=== PATIENT | male | born 1960 | race African-American/Black ===

== ENCOUNTER 2017-01-31 08:32 | Emergency (ER) | payer MEDICAID ==
[~2017-01-31] VITALS: Ht 185.4 cm; Wt 71.0 kg
[2017-01-31 08:33] VITALS: BP 136/75; PULSE 82; RESP 17; TEMP 98; O2SAT 98
--- NOTE | 2017-01-31 09:02 | PD ---
HPI Chief Complaint: Complaint Time Seen by Provider: 09:02 Travel History International Travel<30 days: No Contact w/Intl Traveler<30days: No Traveled to known affect area: No History of Present Illness HPI 56-year-old male came to the emergency room with history of abdominal discomfort lower abdominal and back pain for past 7 days. Patient says he is also having trouble urinating although he eventually ends up emptying his bladder. His increased frequency and urgency. He has noticed some blood in his urine. The urination is prolonged and with some straining he needs to empty his bladder. He has never been diagnosed with any prostate hypertrophy. No history of fever or chills. No history of vomiting or diarrhea. Pain is there constantly but worse when he tries to urinate. Patient is sexually active. He has not noticed any penile discharge. He is been with the same partner for 6 months at least. He does not use protection during sex. Vital signs are stable. Patient is concerned that he may have ureteral calculi since he has history of kidney stones. He has lost 10 pounds in past 3 months. [facility] Past Medical History Narrative Medical List of his past medical, surgical, social and family history is reviewed from the nursing note. Asthma: No Autoimmune Disease: No Cardiovascular Problems: Yes COPD: No Diabetes: Yes (type 2) Patient Takes Glucophage: No (pt states does not remember the med name) GERD: No Hepatitis: No Hiatal Hernia: No Hypertension: Yes Medical other: Yes Sleep Apnea: No Ulcer: No Tetanus Vaccination: > 5 Years Influenza Vaccination: Yes Past Surgical History Surgical History: No Previous Surgery Genitourinary Surgery: No Other Surgery: No Social History Alcohol Use: Yes Tobacco Use: Yes Substance Use: Yes Allergies-Medications (Allergen,Severity, Reaction): Coded Allergies: No Known Allergies (Verified , 01/31/17) Comments No known drug allergies. Reported Meds & Prescriptions Reported Meds & Active Scripts Active Flomax (Tamsulosin HCl) 0.4 Mg Cap 0.4 Mg PO HS Ciprofloxacin (Ciprofloxacin HCl) 500 Mg Tab 500 Mg PO BID Narrative Medication Risk of his home medications reviewed from the nursing note. Review of Systems Except as stated in HPI: all other systems reviewed are Neg Physical Exam Narrative GENERAL: Awake, alert, moderate distress, thin built SKIN: Focused skin assessment warm/dry. HEAD: Atraumatic. Normocephalic. EYES: Pupils equal and round. No scleral icterus. No injection or drainage. ENT: No nasal bleeding or discharge. Mucous membranes pink and moist. NECK: Trachea midline. No JVD. CARDIOVASCULAR: Regular rate and rhythm. No murmur appreciated. RESPIRATORY: No accessory muscle use. Clear to auscultation. Breath sounds equal bilaterally. GASTROINTESTINAL: Abdomen soft, non-tender, nondistended. Hepatic and splenic margins not palpable. Rectal exam showed an enlarged prostate that was nontender. There was some faeces on the perianal area that was not cleaned MUSCULOSKELETAL: No obvious deformities. No clubbing. No cyanosis. No edema. NEUROLOGICAL: Awake and alert. No obvious cranial nerve deficits. Motor grossly within normal limits. Normal speech. PSYCHIATRIC: Appropriate mood and affect; insight and judgment normal. Data Data Last Documented VS Vital Signs Date Time Temp Pulse Resp B/P (MAP) Pulse Ox O2 Delivery O2 Flow Rate FiO2 01/31/17 11:32 97.8 76 17 154/86 (108) 98 01/31/17 10:00 Room Air Orders Orders Complete Blood Count With Diff (01/31/17 09:48) Comprehensive Metabolic Panel (01/31/17 09:48) Urinalysis - C+S If Indicated (01/31/17 09:48) Ct Abd/Pel W/O Iv Contrast (01/31/17 09:48) Iv Access Insert/Monitor (01/31/17 09:48) Ecg Monitoring (01/31/17 09:48) Oximetry (01/31/17 09:48) Sodium Chlor 0.9% 1000 Ml Inj (Ns 1000 M (01/31/17 09:48) Sodium Chloride 0.9% Flush (Ns Flush) (01/31/17 10:00) Ketorolac Inj (Toradol Inj) (01/31/17 10:00) Urine Culture (01/31/17 10:00) Ciprofloxacin (Cipro) (01/31/17 11:15) Ed Discharge Order (01/31/17 11:20) Labs Laboratory Tests Test 01/31/17 10:00 White Blood Count 6.0 TH/MM3 Red Blood Count 4.70 MIL/MM3 Hemoglobin 13.8 GM/DL Hematocrit 42.3 % Mean Corpuscular Volume 90.0 FL Mean Corpuscular Hemoglobin 29.5 PG Mean Corpuscular Hemoglobin Concent 32.7 % Red Cell Distribution Width 13.6 % Platelet Count 154 TH/MM3 Mean Platelet Volume 8.7 FL Neutrophils (%) (Auto) 56.0 % Lymphocytes (%) (Auto) 25.9 % Monocytes (%) (Auto) 13.3 % Eosinophils (%) (Auto) 3.9 % Basophils (%) (Auto) 0.9 % Neutrophils # (Auto) 3.3 TH/MM3 Lymphocytes # (Auto) 1.6 TH/MM3 Monocytes # (Auto) 0.8 TH/MM3 Eosinophils # (Auto) 0.2 TH/MM3 Basophils # (Auto) 0.1 TH/MM3 CBC Comment DIFF FINAL Differential Comment Urine Color YELLOW Urine Turbidity HAZY Urine pH 6.0 Urine Specific [place] 1.019 Urine Protein 100 mg/dL Urine Glucose (UA) NEG mg/dL Urine Ketones NEG mg/dL Urine Occult Blood MOD Urine Nitrite NEG Urine Bilirubin NEG Urine Urobilinogen 2.0 MG/DL Urine Leukocyte Esterase LARGE Urine RBC 17 /hpf Urine WBC /hpf Urine WBC Clumps MOD Urine Squamous Epithelial Cells 1 /hpf Urine Bacteria MOD /hpf Microscopic Urinalysis Comment CULTURE INDICATED Blood Urea Nitrogen 26 MG/DL Creatinine 1.30 MG/DL Random Glucose 97 MG/DL Total Protein 10.1 GM/DL Albumin 2.9 GM/DL Calcium Level 8.8 MG/DL Alkaline Phosphatase 72 U/L Aspartate Amino Transf (AST/SGOT) 50 U/L Alanine Aminotransferase (ALT/SGPT) 36 U/L Total Bilirubin 0.7 MG/DL Sodium Level 136 MEQ/L Potassium Level 3.9 MEQ/L Chloride Level 108 MEQ/L Carbon Dioxide Level 22.2 MEQ/L Anion Gap 6 MEQ/L Estimat Glomerular Filtration Rate 69 ML/MIN [facility] Medical Decision Making Medical Screen Exam Complete: Yes Emergency Medical Condition: Yes Medical Record Reviewed: Yes Differential Diagnosis UTI, renal colic, prostatitis, BPH Narrative Course 11:27 AM blood test results are within acceptable limits. Patient has significant UTI. I have ordered by mouth ciprofloxacin for him. My concern is prostatitis to some extent as well. CT scan shows significantly enlarged prostate. From ER standpoint I would treat him for his UTI and give him prescription for Flomax as well. I have recommended him to follow up with his primary care and urology. I included the name of the urologist on-call in his discharge instructions and hopefully he can follow up directly without requiring a primary care referral. Patient will be discharged home. Procedures EKG Prior to Arrival: No Diagnosis Primary Impression: UTI (urinary tract infection) Qualified Codes: N39.0 - Urinary tract infection, site not specified Additional Impressions: BPH (benign prostatic hyperplasia) Qualified Codes: N40.1 - Benign prostatic hyperplasia with lower urinary tract symptoms; R35.0 - Frequency of micturition Abdominal pain Qualified Codes: R10.9 - Unspecified abdominal pain Referrals: Hesham Rankin MD 2 days Additional Instructions: Please take the antibiotic prescription as per the direction. Take the other medication as per the direction. Return to the ER if the condition worsens or any other new concerns. Please follow-up with the urologist whose name and number been given to you for your enlarged prostate. Follow-up with your primary care. Med/Other Pt SpecificInfo: Prescription(s) given Scripts Tamsulosin (Flomax) 0.4 Mg Cap 0.4 MG PO HS for Manage Prostate Problems, #30 CAP 0 Refills Prov: Wesley Norris MD 01/31/17 Ciprofloxacin (Ciprofloxacin) 500 Mg Tab 500 MG PO BID for Infection, #20 TAB 0 Refills Prov: Wesley Norris MD 01/31/17 Disposition: 01 DISCHARGE HOME Condition: Stable Wesley Norris MD Jan 31, 2017 09:02
[2017-01-31] MEDS ORDERED: SODIUM CHLOR 0.9% 1000 ML INJ 1,000 ML IV SCH (09:48)
[2017-01-31 10:00] VITALS: RESP 17; O2SAT 99
[2017-01-31] MEDS ORDERED: SODIUM CHLORIDE 0.9% FLUSH 10 ML FLUSH IV FLUSH PRN (10:00)
[2017-01-31] MEDS ORDERED: KETOROLAC TROMETHAMINE 30 MG/ML (IVP) VIAL IVP ONE (10:00)
--- NOTE | 2017-01-31 10:32 | RADRPT ---
EXAM DATE/TIME: 01/31/2017 10:13 [facility] COMPARISON: No previous studies available for comparison. INDICATIONS : Left flank pain and inability to urinate ORAL CONTRAST: No oral contrast ingested. RADIATION DOSE: 13.28 CTDIvol (mGy) MEDICAL HISTORY : Renal calculi. Hypertension. Diabetes mellitus type 2. SURGICAL HISTORY : None. ENCOUNTER: Initial ACUITY: 1 day PAIN SCALE: 8/10 LOCATION: Left flank TECHNIQUE: Volumetric scanning of the abdomen and pelvis was performed. Using automated exposure control and ad justment of the mA and/or kV according to patient size, radiation dose was kept as low as reasonably achievable to obtain optimal diagnostic quality images. DICOM format image data is available electro nically for review and comparison. FINDINGS: LOWER LUNGS: The visualized lower lungs are clear. LIVER: Homogeneous density without lesion. There is no dilation of the biliary tree. No calcified gallston es. SPLEEN: Normal size without lesion. PANCREAS: Within normal limits. KIDNEYS: Normal in size and shape. There is no mass, stone, or hydronephrosis. ADRENAL GLANDS: Within normal limits. VASCULAR: There is no aortic aneurysm. BOWEL/MESENTERY: The stomach, small bowel, and colon demonstrate no acute abnormality. There is no free intraperitone al air or fluid. ABDOMINAL WALL: Within normal limits. RETROPERITONEUM: There is no lymphadenopathy. BLADDER: Biliary bladder is mildly distended. REPRODUCTIVE: Of a moderate enlargement of the prostate gland is identified. INGUINAL: There is no lymphadenopathy or hernia. MUSCULOSKELETAL: Within normal limits for patient age. CONCLUSION: 1. Prostatomegaly with mild distention of the urinary bladder. 2. No evidence of obstructive uropathy in the upper collecting systems. 3. No evidence of nephrolithiasis or hydronephrosis. Moncho Huang MD on January 31, 2017 at 10:28 Board Certified Radiologist. This report was verified electronically.
[2017-01-31 10:49] LABS: AUTOMATED NEUTROPHIL # 3.3 TH/MM3 (1.8-7.7); BASOPHIL # 0.1 TH/MM3 (0-0.2); BASOPHIL % 0.9 % (0.0-2.0); EOSINOPHIL # 0.2 TH/MM3 (0-0.4); EOSINOPHIL % 3.9 % (0.0-4.0); HEMATOCRIT 42.3 % (39.0-51.0); HEMO FLAGS DIFF FINAL; LYMPH % 25.9 % (9.0-44.0); LYMPHOCYTE # 1.6 TH/MM3 (1.0-4.8); MEAN CORPUSCULAR HEMOGLOBIN 29.5 PG (27.0-34.0); MEAN CORPUSCULAR HGB CONC 32.7 % (32.0-36.0); MONO % 13.3 % (0.0-8.0); PLATELET COUNT 154 TH/MM3 (150-450); RED CELL DISTRIBUTION WIDTH 13.6 % (11.6-17.2)
[2017-01-31 10:58] LABS: BACTERIA, URINE MOD /hpf; BLOOD, URINE MOD (NEG); COMMENT (UR) CULTURE INDICATED; CULTURE IF INDICATED CULTURE INDICATED; GLUCOSE,URINE NEG (NEG); KETONE, URINE NEG (NEG); NITRITE,URINE NEG (NEG); SQUAMOUS EPITHELIAL CELL URINE 1 /hpf (0-5); URINE COLOR YELLOW (YELLW/STRAW)
[2017-01-31 11:01] VITALS: RESP 16
[2017-01-31 11:06] LABS: ANION GAP 6 MEQ/L (5-15); AST (GOT) 50 U/L (15-37); BICARBONATE 22.2 MEQ/L (21.0-32.0); BLOOD UREA NITROGEN 26 MG/DL (7-18); CHLORIDE 108 MEQ/L (98-107); GLOMERULAR FILTRATION RATE 69 ML/MIN (>89); POTASSIUM 3.9 MEQ/L (3.5-5.1); SODIUM (NA) 136 MEQ/L (136-145)
[2017-01-31 11:08] LABS: ALT (GPT) 36 U/L (12-78)
[2017-01-31 11:10] LABS: ALKALINE PHOSPHATASE 72 U/L (45-117); TOTAL BILIRUBIN ADULT 0.7 MG/DL (0.2-1.0)
[2017-01-31] MEDS ORDERED: CIPROFLOXACIN 500 MG TAB PO ONE (11:15)
[2017-01-31] MEDS ORDERED: TAMS5CAP PO (11:20)
[2017-01-31] MEDS ORDERED: CIPR500T2 PO (11:20)
[2017-01-31 11:32] VITALS: BP 154/86; TEMP 97.8
== END 2017-01-31 11:34 | disposition home or self-care (01) ==
LOC: NEPC 08:32
DX: N39.0 Urinary tract infection, site not specified (principal); N40.1 Benign prostatic hyperplasia with lower urinary tract symptoms; R35.0 Frequency of micturition; I10 Essential (primary) hypertension; E11.9 Type 2 diabetes mellitus without complications
CPT/HCPCS: 74176; 80053; 81001; 85025; 87077; 87086; 87186; 96361; 96374; 99285; J1885; J7030

== ENCOUNTER 2017-07-09 05:33 | Inpatient (IN) | payer MEDICAID ==
[2017-07-09] VITALS (20 sets, daily range): BP systolic 157–208; BP diastolic 76–113; PULSE 66–98; RESP 17–25; TEMP 97.9–98.4; O2SAT 96–98
[~2017-07-09 05:33] MED LIST: CIPR500T2 PO; TAMS5CAP PO
--- NOTE | 2017-07-09 07:41 | RADRPT ---
EXAM DATE/TIME: 07/09/2017 07:26 [facility] COMPARISON: No previous studies available for comparison. INDICATIONS : Chest pain. MEDICAL HISTORY : Hypertension. Diabetes mellitus type II. SURGICAL HISTORY : None. ENCOUNTER: Initial ACUITY: 2 days PAIN SCORE: 6/10 LOCATION: Bilateral chest FINDINGS: The heart is enlarged. Increased interstitial markings are noted bilaterally consistent with mild pul monary vascular congestion versus acute or chronic interstitial disease. No focal alveolar consolidat ion is noted. CONCLUSION: 1. Diffuse increased interstitial markings which are nonspecific and could represent acute pneumoniti s, mild pulmonary vascular congestion or chronic interstitial disease. Clinical correlation is recomm ended. 2. Cardiomegaly. Ankush Parrish MD on July 09, 2017 at 7:37 Board Certified Radiologist. This report was verified electronically.
[2017-07-09 08:16] LABS: AUTOMATED NEUTROPHIL # 2.7 TH/MM3 (1.8-7.7); BASOPHIL # 0.1 TH/MM3 (0-0.2); EOSINOPHIL # 0.4 TH/MM3 (0-0.4); EOSINOPHIL % 6.9 % (0.0-4.0); HEMATOCRIT 39.6 % (39.0-51.0); HEMOGLOBIN 13.2 GM/DL (13.0-17.0); LYMPH % 28.9 % (9.0-44.0); LYMPHOCYTE # 1.5 TH/MM3 (1.0-4.8); MEAN CELL VOLUME 88.4 FL (80.0-100.0); MEAN CORPUSCULAR HEMOGLOBIN 29.4 PG (27.0-34.0); MEAN CORPUSCULAR HGB CONC 33.2 % (32.0-36.0); MEAN PLATELET VOLUME 8.3 FL (7.0-11.0); MONO % 9.9 % (0.0-8.0); MONOCYTE # 0.5 TH/MM3 (0-0.9); NEUT % 53.3 % (16.0-70.0); PLATELET COUNT 130 TH/MM3 (150-450); RED BLOOD COUNT 4.48 MIL/MM3 (4.50-5.90); RED CELL DISTRIBUTION WIDTH 14.5 % (11.6-17.2); WHITE BLOOD COUNT 5.1 TH/MM3 (4.0-11.0)
[2017-07-09 08:22] LABS: INTERNATIONAL NORMALIZED RATIO 1.1 RATIO; PROTHROMBIN TIME - PATIENT 11.1 SEC (9.8-11.6)
--- NOTE | 2017-07-09 08:44 | EKG ---
Date Performed: 07/09/2017 Time Performed: 07:19:51 PTAGE: 56 years EKG: Sinus rhythm MINIMAL VOLTAGE CRITERIA FOR LVH, CONSIDER NORMAL VARIANT POSSIBLE SEPTAL MYOCARDIAL INFARCTION ABNO RMAL ECG NO PREVIOUS TRACING DOCTOR: Bryn Casas Interpretating Date/Time 07/09/2017 08:23:02
[2017-07-09 08:58] LABS: BLOOD UREA NITROGEN 27 MG/DL (7-18); CALCIUM 8.5 MG/DL (8.5-10.1); CHLORIDE 113 MEQ/L (98-107); CREATININE 1.25 MG/DL (0.60-1.30); GLOMERULAR FILTRATION RATE 72 ML/MIN (>89); GLUCOSE,RANDOM 96 MG/DL (74-106); SODIUM (NA) 142 MEQ/L (136-145)
[2017-07-09] MEDS ORDERED: [UNRECOGNIZED DRUG - REMARK] (09:14)
--- NOTE | 2017-07-09 09:22 | PD ---
HPI Chief Complaint: Respiratory Distress Time Seen by Provider: 09:17 Travel History International Travel<30 days: No Contact w/Intl Traveler<30days: No Traveled to known affect area: No History of Present Illness HPI 56-year-old male patient with history of hypertension, diabetes, smoking, presents to the ER today for 3 days history of increased dyspnea on exertion and shortness of breath, 7 out of 10 substernal chest discomfort for which she came to the ER. He denies any fevers, coughing, or other issues. He denies any previous history. Modifying Factors: Worse with exertion Associated Signs & Symptoms: Chest discomfort, shortness of breath Risk Factors: Diabetic, hypertension PFSH Past Medical History Asthma: No Autoimmune Disease: No Cardiovascular Problems: Yes COPD: No Diabetes: Yes (type 2) Patient Takes Glucophage: Yes GERD: No Hepatitis: No Hiatal Hernia: No Hypertension: Yes Sleep Apnea: No Ulcer: No Past Surgical History Genitourinary Surgery: No Other Surgery: No Social History Alcohol Use: Yes Tobacco Use: Yes Substance Use: Yes Allergies-Medications (Allergen,Severity, Reaction): Coded Allergies: No Known Allergies (Verified Adverse Reaction, Unknown, 07/09/17) Reported Meds & Prescriptions Reported Meds & Active Scripts Active Flomax (Tamsulosin HCl) 0.4 Mg Cap 0.4 Mg PO HS Reported [Unk Bp Pill] DAILY Review of Systems Except as stated in HPI: all other systems reviewed are Neg Physical Exam Narrative GENERAL: Well-developed middle-aged -Greek male patient currently in mild distress. Awake and oriented 3. SKIN: Focused skin assessment warm/dry. HEAD: Atraumatic. Normocephalic. EYES: Pupils equal and round. No scleral icterus. No injection or drainage. ENT: No nasal bleeding or discharge. Mucous membranes pink and moist. NECK: Trachea midline. No JVD. CARDIOVASCULAR: Regular rate and rhythm. No murmur appreciated. RESPIRATORY: No accessory muscle use. Decreased throughout. Breath sounds equal bilaterally. GASTROINTESTINAL: Abdomen soft, non-tender, nondistended. Hepatic and splenic margins not palpable. MUSCULOSKELETAL: No obvious deformities. No clubbing. No cyanosis. No edema. NEUROLOGICAL: Awake and alert. No obvious cranial nerve deficits. Motor grossly within normal limits. Normal speech. PSYCHIATRIC: Appropriate mood and affect; insight and judgment normal. Data Data Last Documented VS Vital Signs Date Time Temp Pulse Resp B/P (MAP) Pulse Ox O2 Delivery O2 Flow Rate FiO2 07/09/17 09:25 80 20 168/102 (124) 97 Room Air 176/112 (133) 07/09/17 05:43 98.2 Orders Orders Electrocardiogram (07/09/17 07:05) Complete Blood Count With Diff (07/09/17 07:05) Basic Metabolic Panel (Bmp) (07/09/17 07:05) Ckmb (Isoenzyme) Profile (07/09/17 07:05) Troponin I (07/09/17 07:05) Iv Access Insert/Monitor (07/09/17 07:05) Ecg Monitoring (07/09/17 07:05) Oxygen Administration (07/09/17 07:05) Oximetry (07/09/17 07:05) Chest, Pa & Lat (07/09/17 ) Act Partial Throm Time (Ptt) (07/09/17 07:05) Prothrombin Time / Inr (Pt) (07/09/17 07:05) CKMB (07/09/17 07:50) CKMB% (07/09/17 07:50) Aspirin (Aspirin) (07/09/17 09:30) Nitroglycerin 2% Oint (Nitroglycerin 2% (07/09/17 09:30) B-Type Natriuretic Peptide (07/09/17 09:18) D-Dimer (07/09/17 09:22) Admit Order (Ed Use Only) (07/09/17 09:33) Labs Laboratory Tests Test 07/09/17 07:50 White Blood Count 5.1 TH/MM3 Red Blood Count 4.48 MIL/MM3 Hemoglobin 13.2 GM/DL Hematocrit 39.6 % Mean Corpuscular Volume 88.4 FL Mean Corpuscular Hemoglobin 29.4 PG Mean Corpuscular Hemoglobin Concent 33.2 % Red Cell Distribution Width 14.5 % Platelet Count 130 TH/MM3 Mean Platelet Volume 8.3 FL Neutrophils (%) (Auto) 53.3 % Lymphocytes (%) (Auto) 28.9 % Monocytes (%) (Auto) 9.9 % Eosinophils (%) (Auto) 6.9 % Basophils (%) (Auto) 1.0 % Neutrophils # (Auto) 2.7 TH/MM3 Lymphocytes # (Auto) 1.5 TH/MM3 Monocytes # (Auto) 0.5 TH/MM3 Eosinophils # (Auto) 0.4 TH/MM3 Basophils # (Auto) 0.1 TH/MM3 CBC Comment DIFF FINAL Differential Comment Prothrombin Time 11.1 SEC Prothromb Time International Ratio 1.1 RATIO Activated Partial Thromboplast Time 28.2 SEC Blood Urea Nitrogen 27 MG/DL Creatinine 1.25 MG/DL Random Glucose 96 MG/DL Calcium Level 8.5 MG/DL Sodium Level 142 MEQ/L Potassium Level 3.9 MEQ/L Chloride Level 113 MEQ/L Carbon Dioxide Level 22.0 MEQ/L Anion Gap 7 MEQ/L Estimat Glomerular Filtration Rate 72 ML/MIN Total Creatine Kinase 236 U/L Creatine Kinase MB 2.7 NG/ML Troponin I 0.10 NG/ML [facility] Medical Decision Making Medical Screen Exam Complete: Yes Emergency Medical Condition: Yes Medical Record Reviewed: Yes Interpretation(s) EKG shows normal sinus rhythm at a rate of 87 bpm with LVH. I do not see any signs of acute ST elevations or depressions. Laboratory Tests Test 07/09/17 07:50 Red Blood Count 4.48 MIL/MM3 (4.50-5.90) Platelet Count 130 TH/MM3 (150-450) Monocytes (%) (Auto) 9.9 % (0.0-8.0) Eosinophils (%) (Auto) 6.9 % (0.0-4.0) Blood Urea Nitrogen 27 MG/DL (7-18) Chloride Level 113 MEQ/L (98-107) Estimat Glomerular Filtration Rate 72 ML/MIN (>89) Troponin I 0.10 NG/ML (0.02-0.05) Last 24 hours Impressions Chest X-Ray 07/09/17 0000 Signed Impressions: Service Date/Time: Sunday, July 09, 2017 07:26 - CONCLUSION: 1. Diffuse increased interstitial markings which are nonspecific and could represent acute pneumonitis, mild pulmonary vascular congestion or chronic interstitial disease. Clinical correlation is recommended. 2. Cardiomegaly. Ankush Parrish MD Differential Diagnosis COPD exacerbation versus pneumonia versus CHF Narrative Course EKG did not show any signs of acute ST elevations or depressions. His blood pressure is mildly elevated in the ER and there are signs of LVH on EKG. I do not see any signs of acute ST elevations or depressions. Chest x-ray is showing signs of possible bilateral pneumonitis versus mild pulmonary edema. Lab work shows significant elevation of troponin of 0.1. This is of uncertain etiology, heart strain versus non-STEMI. Aspirin and nitroglycerin was given in the ER. Planning to admit for further evaluation and treatment. Case is discussed with family practice resident service for admission. Diagnosis Primary Impression: Shortness of breath Additional Impression: Elevated troponin Admitting Information Admitting Physician Requests: Admit Abdirahman iKng MD Jul 09, 2017 09:22
[2017-07-09] MEDS ORDERED: ASPIRIN 325 MG TAB PO ONE (09:30)
[2017-07-09] MEDS ORDERED: NITROGLYCERIN 2% OINT 1 GM PACKET TOPICAL ONE (09:30)
--- NOTE | 2017-07-09 09:39 | HHI.HP ---
[facility] Primary Care Physician No Primary Care Physician Admission Diagnosis chest pain Diagnoses: International Travel<30 Days: No Contact w/Intl Traveler<30days: No Known Affected Area: No History of Present Illness 56-year-old male with a history of diabetes, hypertension presenting to the ED with progressive shortness of breath and chest discomfort. Patient states that over the last 5 days he has had progressively worsening shortness of breath, palpitations and chest discomfort. States it is worse at rest as opposed to being active. Describes CP in his substernal region - doesn't radiate. It starts as sharp then progresses to dull/achy. 5 out of 10 pain scale. Feels like heart is going to "jump out of his chest." Can last hours at a time. Seems to be worse when laying down. Has to sleep with his head elevated. Occasionally feels discomfort in his mid-abdomen as well. At baseline, he has SOB, chest discomfort walking 1 block. Now getting SOB when walking a much shorter distance. Symptoms had been fairly stable yesterday, but awoke this morning and couldn't get out of bed. States he couldn't breath, had CP now 7 on pain scale. Denies syncope Normally coughs up small amount of mucous - unchanged. Had chills but doesn't believe he had fever. Has had nausea - no vomiting. A little less po intake but still able to eat/drink. Has been really thirsty. Also noticed a 5 pound weight loss over last week. Currently doesn't have a doctor. Review of Systems Constitutional: COMPLAINS OF: Weight loss (lost 5 pounds over last several days ), Chills, Dizziness (light headed), Night Sweats, DENIES: Fever Eyes: DENIES: Blurred vision, Double Vision Ears, nose, mouth, throat: DENIES: Throat pain, Running Nose Respiratory: COMPLAINS OF: Wheezing, Shortness of breath, DENIES: Cough Cardiovascular: COMPLAINS OF: Chest pain, Palpitations, Dyspnea on Exertion, Orthopnea, DENIES: Syncope Gastrointestinal: COMPLAINS OF: Constipation, Nausea, DENIES: Abdominal pain, Black stools, Bloody stools, Diarrhea, Vomiting Genitourinary: COMPLAINS OF: Hematuria (once 2 to 3 weeks ago), DENIES: Dysuria Integumentary: DENIES: Rash Hematologic/lymphatic: DENIES: Lymphadenopathy Psychiatric: COMPLAINS OF: Confusion (chronic but feeling moreso here recently) Past Family Social History Past Medical History HTN - takes unknown oral medication DM - takes an unknown oral medication Gout Smoker Past Surgical History No surgeries Allergies: Coded Allergies: No Known Allergies (Verified Allergy, Unknown, 07/09/17) Family History DM, HTN in parents poor vision Social History Lives with mother, disabled brother Was in the [employer] On disability currently due to Gout, prior ankle injury 1/2 ppd for 20 years Former drinker - last drink was 1 year ago Marijuana Physical Exam Vital Signs Vital Signs Date Time Temp Pulse Resp B/P (MAP) Pulse Ox O2 Delivery O2 Flow Rate FiO2 07/09/17 09:25 80 20 168/102 (124) 97 Room Air 176/112 (133) 07/09/17 09:16 83 20 98 Room Air 07/09/17 05:43 98.2 86 18 164/88 (113) 97 Physical Exam GENERAL: Thin, AAM sitting upright in bed. Did get acutely SOB during the physical exam. Able to speak in complete sentences. SKIN: No rashes, ecchymoses or lesions. Cool and dry. HEAD: Atraumatic. Normocephalic. No temporal or scalp tenderness. EYES: Pupils equal round and reactive. Extraocular motions intact. No scleral icterus. No injection or drainage. ENT: Nose without bleeding, purulent drainage or septal hematoma. Airway patent. NECK: Trachea midline. No JVD or lymphadenopathy. Supple, nontender, no meningeal signs. CARDIOVASCULAR: Regular rate and rhythm. Harsh 4/6 systolic murmur appreciated throughout. PMI nondisplaced RESPIRATORY: Breath sounds equal bilaterally. Bibasilar crackles noted. No wheezes GASTROINTESTINAL: Abdomen soft, non-tender, nondistended. No hepato-splenomegaly , or palpable masses. No guarding. MUSCULOSKELETAL: Digital clubbing appreciated. No lower extremity edema noted. R calf was TTP, Homans sign + on that R leg. L leg with no tenderness. NEUROLOGICAL: Awake and alert. Cranial nerves II through XII intact. Motor and sensory grossly within normal limits. Five out of 5 muscle strength in all muscle groups. Normal speech. Laboratory Laboratory Tests Test 07/09/17 07:50 White Blood Count 5.1 Red Blood Count 4.48 Hemoglobin 13.2 Hematocrit 39.6 Mean Corpuscular Volume 88.4 Mean Corpuscular Hemoglobin 29.4 Mean Corpuscular Hemoglobin Concent 33.2 Red Cell Distribution Width 14.5 Platelet Count 130 Mean Platelet Volume 8.3 Neutrophils (%) (Auto) 53.3 Lymphocytes (%) (Auto) 28.9 Monocytes (%) (Auto) 9.9 Eosinophils (%) (Auto) 6.9 Basophils (%) (Auto) 1.0 Neutrophils # (Auto) 2.7 Lymphocytes # (Auto) 1.5 Monocytes # (Auto) 0.5 Eosinophils # (Auto) 0.4 Basophils # (Auto) 0.1 CBC Comment DIFF FINAL Differential Comment Prothrombin Time 11.1 Prothromb Time International Ratio 1.1 Activated Partial Thromboplast Time 28.2 Blood Urea Nitrogen 27 Creatinine 1.25 Random Glucose 96 Calcium Level 8.5 Sodium Level 142 Potassium Level 3.9 Chloride Level 113 Carbon Dioxide Level 22.0 Anion Gap 7 Estimat Glomerular Filtration Rate 72 Total Creatine Kinase 236 Creatine Kinase MB 2.7 Troponin I 0.10 Result Diagram: 07/09/17 0750 07/09/17 0750 Imaging Last 24 hours Impressions Chest X-Ray 07/09/17 0000 Signed Impressions: Service Date/Time: Sunday, July 09, 2017 07:26 - CONCLUSION: 1. Diffuse increased interstitial markings which are nonspecific and could represent acute pneumonitis, mild pulmonary vascular congestion or chronic interstitial disease. Clinical correlation is recommended. 2. Cardiomegaly. MD Wesley Sood VTE Risk Assessment Caprini VTE Risk Assessment: Mod/High Risk (score >= 2) Caprini Risk Assessment Model Point Value = 1 Point Value = 2 Point Value = 3 Point Value = 5 Age 41-60 Minor surgery BMI > 25 kg/m2 Swollen legs Varicose veins or History of unexplained or recurrent spontaneous Oral contraceptives or hormone replacement Sepsis (< 1 month) Serious lung disease, including pneumonia (< 1 month) Abnormal pulmonary function Acute myocardial infarction Congestive heart failure (< 1 month) History of inflammatory bowel disease Medical patient at bed rest Age 61-74 Arthroscopic surgery Major open surgery (> 45 min) Laparoscopic surgery (> 45 min) Malignancy Confined to bed (> 72 hours) Immobilizing plaster cast Central venous access Age >= 75 History of VTE Family history of VTE Factor V Leiden Prothrombin [id number] Lupus anticoagulant Anticardiolipin antibodies Elevated serum homocysteine Heparin-induced thrombocytopenia Other congenital or acquired thrombophilia Stroke (< 1 month) Elective arthroplasty Hip, pelvis, or leg fracture Acute spinal cord injury (< 1 month) Prophylaxis Regimen Total Risk Factor Score Risk Level Prophylaxis Regimen 0-1 Low Early ambulation 2 Moderate Order ONE of the following: *Sequential Compression Device (SCD) *Heparin 5000 units SQ BID 3-4 Higher Order ONE of the following medications: *Heparin 5000 units SQ TID *Enoxaparin/Lovenox 40 mg SQ daily (WT < 150 kg, CrCl > 30 mL/min) *Enoxaparin/Lovenox 30 mg SQ daily (WT < 150 kg, CrCl > 10-29 mL/min) *Enoxaparin/Lovenox 30 mg SQ BID (WT < 150 kg, CrCl > 30 mL/min) AND/OR *Sequential Compression Device (SCD) 5 or more Highest Order ONE of the following medications: *Heparin 5000 units SQ TID (Preferred with Epidurals) *Enoxaparin/Lovenox 40 mg SQ daily (WT < 150 kg, CrCl > 30 mL/min) *Enoxaparin/Lovenox 30 mg SQ daily (WT < 150 kg, CrCl > 10-29 mL/min) *Enoxaparin/Lovenox 30 mg SQ BID (WT < 150 kg, CrCl > 30 mL/min) AND *Sequential Compression Device (SCD) Assessment and Plan Assessment and Plan 56 yo M with PMH of DM, HTN presenting to ED with 5 day history of progressive SOB, palpitations and chest discomfort. Has SOB at baseline. Found to have elevated troponin of 0.1, EKG with no ST changes on admission. Elevated D - Dimer. Admitting for PE, ACS rule out. Code Status Full code Discussed Condition With Dr. Anita Rodriguez Problem List: (1) SOB (shortness of breath) ICD Codes: R06.02 - Shortness of breath Plan: 5 day history of worsening shortness of breath, palpitation and chest discomfort Has shortness of breath at baseline, acutely worsened on day of admission Chest x-ray on admission showed diffused increased interstitial markings Elevated d-dimer on admission of 1.95 CTA is negative for PE. Showed central lobar emphysema with chronic interstitial lung disease as well as a nonspecific 7 mm nodular infiltrate in R apex Bibasilar crackles on physical exam, orthopnea per history Echocardiogram to evaluate for CHF, workup murmur Starting Duonebs q6hr, albuterol q2hr PRN Concern for chronic lung process as patient has significant smoking history, has digital clubbing and weight loss (2) Chest pain ICD Codes: R07.9 - Chest pain, unspecified Plan: Palpitations, both sharp and dull chest pain that is non-radiating Present both at rest and after exertion EKG on admission showing LVH, no ST changes Troponin 0.1 on admission Concern for NSTEMI vs PE vs unstable angina Trend troponin, EKG, CKMB q4hr Hemodynamically stable on admission aside from elevated BP CTA negative for PE Received 1 dose ASA 325mg in ED Starting Heparin drip with bolus Starting Nitro drip for pain Starting Vasotec PRN for HTN UDS + for cocaine so discontinuing IV Labetalol - patient had not received a dose prior to discontinuing Patient asked about cocaine use specifically and he denied. (3) Hypertension ICD Codes: I10 - Essential (primary) hypertension Plan: Patient has a known diagnosis of hypertension Takes an oral medication that he cannot cause with that is Spoke with his pharmacy and they stated he was on Lisinopril 20mg daily but has not had this filled in 1 year. Blood pressures are elevated up to 176/112 on admission Will start Vasotec 1.25 mg IV push every 6 hours as needed for systolic blood pressure over 180 or diastolic blood pressure over 100 (4) Diabetes ICD Codes: E11.9 - Type 2 diabetes mellitus without complications Plan: Patient with a known history of diabetes Spoke with his pharmacy and they stated he has not but has not had this filled in 1 year. Random glucose of 96 on admission Contacting pharmacy to determine what medicines he takes Starting low-dose sliding scale (5) Gout ICD Codes: M10.9 - Gout, unspecified Plan: Known history of gout Will monitor symptoms (6) FEN Plan: F: holding IVF for now until pending workup dictates clinical course E: WNL, no sign of CHRISTINA, will replete as needed N: NPO for now until clinical course is determined Heparin drip Physician Certification 2 Midnight Certification Type: Admission for Inpatient Services Order for Inpatient Services The services are ordered in accordance with Medicare regulations or non- Medicare payer requirements, as applicable. In the case of services not specified as inpatient-only, they are appropriately provided as inpatient services in accordance with the 2-midnight benchmark. Estimated LOS (days): 2 days is the estimated time the patient will need to remain in the hospital, assuming treatment plan goals are met and no additional complications. Post-Hospital Plan: Not yet determined Rony Painter MD R1 Jul 09, 2017 09:39
[2017-07-09] MEDS ORDERED: SODIUM CHLORIDE 0.9% FLUSH 10 ML FLUSH IV FLUSH PRN (10:00)
[2017-07-09] MEDS ORDERED: NITROGLYCERIN 0.4 MG SL 25 TABS/BTL SL PRN (10:30)
[2017-07-09] MEDS ORDERED: MORPHINE SULFATE 4 MG/ML INJ IV PUSH PRN (10:30)
[2017-07-09] MEDS ORDERED: IOHEXOL 350 MG/ML 10 ML VIAL (for RAD DIAG) IVCONTRAST ONE (10:34)
--- NOTE | 2017-07-09 10:46 | RADRPT ---
EXAM DATE/TIME: 07/09/2017 10:31 [facility] COMPARISON: No previous studies available for comparison. INDICATIONS : Increasing dyspnea and chest discomfort IV CONTRAST: 75 cc Omnipaque 350 (iohexol) IV RADIATION DOSE: 8.09 CTDIvol (mGy) MEDICAL HISTORY : Hypertension. Diabetes mellitus type 2. SURGICAL HISTORY : None. ENCOUNTER: Initial ACUITY: 4 - 6 days PAIN SCALE: 7/10 LOCATION: Left chest TECHNIQUE: Volumetric scanning of the chest was performed using a pulmonary embolism protocol MIP images were re constructed. Using automated exposure control and adjustment of the mA and/or kV according to patien t size, radiation dose was kept as low as reasonably achievable to obtain optimal diagnostic quality images. DICOM format image data is available electronically for review and comparison. Follow-up recommendations for detected pulmonary nodules are based at a minimum on nodule size and pa tient risk factors according to Fleischner Society Guidelines. FINDINGS: PULMONARY ARTERIES: No filling defects are seen in the pulmonary arteries through the segmental level. LUNGS: There is no consolidation or pneumothorax . Single nonspecific nodular infiltrate in the right measur ing 7 mm. There is central lobar emphysema throughout both lung gilliam with chronic bilateral interst itial lung disease characteristic for COPD. PLEURAE: There is no pleural thickening or pleural effusion. MEDIASTINUM: There is good visualization of the great vessels of the middle mediastinum. No evidence of mediastin al or hilar adenopathy/mass. MUSCULOSKELETAL: Within normal limits for patient age. MISCELLANEOUS: The visualized upper abdominal organs demonstrate no acute abnormality. CONCLUSION: 1. No evidence of pulmonary embolism. 2. 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 3. Nonspecific 7 mm nodular infiltrate right apex. Recommend followup noncontrast CT thorax in 3 viji hs after appropriate medical therapy. Cecil Soriano MD on July 09, 2017 at 10:40 Board Certified Radiologist. This report was verified electronically.
[2017-07-09] MEDS ORDERED: GLUCAGON 1 MG/ML VIAL OTHER PRN (11:15)
[2017-07-09] MEDS ORDERED: hydrALAZINE HCL 20 MG/ML VIAL IV PUSH PRN (11:45)
[2017-07-09] MEDS ORDERED: HEPARIN SODIUM - SQ 10,000 UNITS/ML VIAL SQ SCH (12:00)
[2017-07-09] MEDS: INSULIN ASPART SUPPLEMENTAL SCALE SQ SCH ×3 (12:00→20:50)
[2017-07-09] MEDS ORDERED: LABETALOL HCL 100 MG/20 ML VIAL IV PUSH PRN (12:15)
[2017-07-09] MEDS: ENALAPRILAT 1.25 MG/ML VIAL IV PUSH PRN ×2 (12:17→18:55)
[2017-07-09] MEDS: ONDANSETRON HCL 4 MG/2 ML VIAL IV PUSH PRN (12:17)
[2017-07-09] MEDS ORDERED: HEPARIN SODIUM - IV 10,000 UNITS/10 ML VIAL IV PUSH ONE (12:30)
[2017-07-09 12:37] LABS: BACTERIA, URINE MOD /hpf; BILIRUBIN, URINE NEG (NEG); BLOOD, URINE MOD (NEG); GLUCOSE,URINE NEG (NEG); HYALINE CAST, URINE 1 /lpf (RARE); KETONE, URINE NEG (NEG); MUCUS URINE FEW /lpf (OCC); NITRITE,URINE NEG (NEG); PH, URINE 6.5 (5.0-8.5); URINE COLOR YELLOW (YELLW/STRAW); URINE LEUKOCYTE ESTERASE MOD (NEG); WHITE BLOOD CELL CLUMPS RARE
[2017-07-09 12:57] LABS: TROPONIN I 0.12 NG/ML (0.02-0.05)
--- NOTE | 2017-07-09 13:10 | MB ---
cc: Clarence Villegas MD DATE OF CONSULT: INDICATION: Shortness of breath. HISTORY OF PRESENT ILLNESS: This is a 56-year-old diabetic and hypertensive gentleman with poor followup and noncompliance. He presents to the emergency department with progressive shortness of breath in addition to intermittent chest pain. He states the chest pain is progressively worse with ambulation and walking, not exacerbated by deep inspiration. There is no tenderness to deep palpation. He presented to the emergency department and given nitroglycerin without much relief. His D-dimer was mildly elevated. He had a CTA that ruled out pulmonary embolism. He is quite short of breath just lying in bed or when he got up to try to urinate had moderate distress. Denies any significant weight gain or water retention. PAST MEDICAL HISTORY: Hypertension, diabetes, gout, smoking. SOCIAL HISTORY: Does report occasional drug use, although denies any mora intravenous drug use. Reports mainly using cannabis. He is also on disability. Smokes half a pack for 20 years. FAMILY HISTORY: Reports diabetes, hypertension. REVIEW OF SYSTEMS: A 12-point review of systems was performed, negative unless otherwise noted in the history of present illness. PHYSICAL EXAMINATION: VITAL SIGNS: Temperature is normal, pulse is 82, blood pressure 158/98 mmHg. GENERAL: Alert and oriented x 3, in mild distress. HEENT: Shows pupils are reactive to light and accommodation. Extraocular movements are intact. NECK: There is mild elevation of jugular veins. No lymphadenopathy, no carotid bruits. LUNGS: Clear to auscultation bilaterally. CARDIOVASCULAR: Regular rate and rhythm without murmurs, rubs or gallops. ABDOMEN: Nontender, nondistended with good bowel sounds. No hepatosplenomegaly. EXTREMITIES: Show no clubbing, cyanosis or edema. CARDIOVASCULAR: Tachycardic with ectopy. A 3/6 holosystolic murmur best heard at the right sternal border. LABORATORY DATA: WBC 5.1, hemoglobin is 13.2, platelet count 130. INR is 1.1. Sodium 142, potassium 3.9, bicarbonate 22, BUN 27, creatinine is 1.25, troponin 0.10. ELECTROCARDIOGRAM: Sinus rhythm, nonspecific ST-T wave changes. ASSESSMENT: 1. Shortness of breath. 2. Murmur. 3. Hypertension, diabetes, chest pain. PLAN: Troponin is intermediate range, but his symptoms do not necessarily sound ischemic. Somewhat atypical, worse with ambulation. There is no prominent wheezing, although he has a fairly prominent holosystolic murmur. It sounds more consistent with tricuspid regurgitation. Denies any intravenous drug use, does not report any history of being told he has a murmur in the past. He is on nitroglycerin drip. We will keep him on that since his blood pressure is also elevated. He has also been initiated on heparin drip and we will trend his troponin, but I would like to get a 2-D echocardiogram today to define his valvular abnormality. At this point, he is probably going to need a heart catheterization whether it is rule out ischemic etiology or preoperative assessment for valve surgery given his prominent murmur and his significant respiratory symptoms. His minimal troponin elevation could just be cardiomyopathy induced. We will add a very low dose of carvedilol to help with his heart rate. Should also have a tox screen. I will add hydralazine p.r.n. for systolic blood pressure elevated. Clarence Villegas MD ERICA/TL , 12:43 PM , 01:09 PM
[2017-07-09] MEDS: NITROGLYCERIN-D5W 50 MG/250 ML 250 ML IV PRN (13:34)
[2017-07-09] MEDS: HEPARIN-D5W 25,000 U/250 ML 250 ML IV PRN (13:44)
[2017-07-09] MEDS: CARVEDILOL 6.25 MG TAB PO SCH ×2 (14:27→19:54)
[2017-07-09] MEDS: RESP: ALBUTEROL 2.5 MG/IPRATROPIUM 0.5 MG NEB (SCH) INH ×2 (16:06→19:21)
[2017-07-09 17:39] LABS: TROPONIN I 0.19 NG/ML (0.02-0.05)
--- NOTE | 2017-07-09 17:41 | ECHRPT ---
Indication: ACS, Murmur CONCLUSIONS Normal left ventricular size. Mild concentric left ventricular hypertrophy. The left ventricular systolic function is low normal with an estimated ejection fraction in the rang e of 50- 55%. The left atrial size is mildly dilated. Severe mitral valve regurgitation. The mitral valve regurgitation jet is directed anteriorly. Moderate thickening of the mitral valve leaflets. Cannot rule out mobile echodensity on posterior m itral valve leaflet on the inflow side of the mitral valve apparatus. Posterior mitral valve leaflet prolapse. The estimated pulmonary arterial pressure is 54 mmHg. There is mild tricuspid valve regurgitation. Mild pulmonary valve regurgitation. BP: 171 / 113 HR: 90 Rhythm: Sinus MEASUREMENTS (Male / Female) Normal Values Technical Quality:Fair 2D ECHO LV Diastolic Diameter PLAX 5.7 cm 4.2 - 5.9 / 3.9 - 5.3 cm LV Systolic Diameter PLAX 4.0 cm IVS Diastolic Thickness 1.2 cm 0.6 - 1.0 / 0.6 - 0.9 cm LVPW Diastolic Thickness 1.2 cm 0.6 - 1.0 / 0.6 - 0.9 cm LV Relative Wall Thickness 0.4 RV Internal Dim ED PLAX 3.3 cm LVOT Diameter 2.2 cm LA Systolic Diameter LX 4.4 cm 3.0 - 4.0 / 2.7 - 3.8 cm M-MODE Aortic Root Diameter MM 3.2 cm LA Systolic Diameter MM 4.1 cm LA Ao Ratio MM 1.3 AV Cusp Separation MM 2.3 cm DOPPLER AV Peak Velocity 79.6 cm/s AV Peak Gradient 2.5 mmHg LVOT Peak Velocity 71.0 cm/s LVOT Peak Gradient 2.0 mmHg AV Area Cont Eq pk 3.4 cm MV Peak Velocity 195.0 cm/s MV Peak Gradient 15.2 mmHg MV Mean Velocity 101.0 cm/s MV Mean Gradient 5.0 mmHg MV Area PHT 4.1 cm MR Peak Velocity 591.0 cm/s MR Peak Gradient 139.7 mmHg Mitral E Point Velocity 173.0 cm/s Mitral A Point Velocity 74.0 cm/s Mitral E to A Ratio 2.3 LV E' Lateral Velocity 18.4 cm/s Mitral E to LV E' Lateral Ratio 9.4 LV E' Septal Velocity 7.5 cm/s Mitral E to LV E' Septal Ratio 23.0 TR Peak Velocity 369.0 cm/s TR Peak Gradient 54.5 mmHg Right Atrial Pressure 10.0 mmHg Pulmonary Artery Systolic Pressu 64.5 mmHg Right Ventricular Systolic Press 64.5 mmHg FINDINGS LEFT VENTRICLE Normal left ventricular size. Mild concentric left ventricular hypertrophy. The left ventricular systolic function is low normal with an estimated ejection fraction in the rang e of 50- 55%. RIGHT VENTRICLE Normal right ventricular size and systolic function. LEFT ATRIUM The left atrial size is mildly dilated. RIGHT ATRIUM The right atrial size is normal. ATRIAL SEPTUM Normal atrial septal thickness without atrial level shunting by limited color doppler interrogation. AORTA The aortic root and proximal ascending aorta are normal in size on limited imaging. MITRAL VALVE Severe mitral valve regurgitation. The mitral valve regurgitation jet is directed anteriorly. Moderate thickening of the mitral valve leaflets. Cannot rule out mobile echodensity on posterior m itral valve leaflet on the inflow side of the mitral valve apparatus. Posterior mitral valve leaflet prolapse. AORTIC VALVE Trileaflet aortic valve. No aortic valve stenosis or regurgitation. TRICUSPID VALVE The estimated pulmonary arterial pressure is 54 mmHg. There is mild tricuspid valve regurgitation. PULMONARY VALVE Mild pulmonary valve regurgitation. VESSELS The inferior vena cava is normal in size. PERICARDIUM No pericardial effusion. Clarence Villegas MD, FACC (Electronically Signed) Final Date:09 July 2017 17:40
[2017-07-09] MEDS ORDERED: HEPARIN SODIUM - IV 10,000 UNITS/10 ML VIAL IV PUSH PRN ×2 (17:45)
[2017-07-09] MEDS: hydrALAZINE HCL 50 MG TAB PO PRN (17:55)
[2017-07-09] MEDS: SODIUM CHLORIDE 0.9% FLUSH 10 ML FLUSH IV FLUSH SCH (19:54)
[2017-07-09] MEDS ORDERED: cloNIDine HCL 0.1 MG TAB PO PRN (20:00)
[2017-07-09 20:47] LABS: CHOLESTEROL 149 MG/DL (120-200); MAGNESIUM 1.9 MG/DL (1.5-2.5); TRIGLYCERIDES 66 MG/DL (42-150)
[2017-07-09 20:50] LABS: CHOLESTEROL/ HDL RATIO 3.17 RATIO; LDL CHOLESTEROL 89 MG/DL (0-99)
[2017-07-09 22:36] LABS: HEMOGLOBIN A1C 5.5 % (4.3-6.0)
[2017-07-09] MEDS: TAMSULOSIN HCL 0.4 MG CAP PO SCH (22:58)
[2017-07-10] VITALS (27 sets, daily range): BP systolic 134–156; BP diastolic 75–94; PULSE 55–86; RESP 16–21; TEMP 96.4–98; O2SAT 95–98
[2017-07-10] MEDS: ONDANSETRON HCL 4 MG/2 ML VIAL IV PUSH PRN (00:32)
[2017-07-10 02:16] LABS: AUTOMATED NEUTROPHIL # 2.4 TH/MM3 (1.8-7.7); BASOPHIL % 0.9 % (0.0-2.0); EOSINOPHIL # 0.1 TH/MM3 (0-0.4); EOSINOPHIL % 3.5 % (0.0-4.0); HEMATOCRIT 38.1 % (39.0-51.0); HEMOGLOBIN 12.5 GM/DL (13.0-17.0); LYMPH % 30.4 % (9.0-44.0); LYMPHOCYTE # 1.3 TH/MM3 (1.0-4.8); MEAN CELL VOLUME 87.7 FL (80.0-100.0); MEAN CORPUSCULAR HEMOGLOBIN 28.7 PG (27.0-34.0); MEAN CORPUSCULAR HGB CONC 32.8 % (32.0-36.0); MONOCYTE # 0.4 TH/MM3 (0-0.9); NEUT % 55.2 % (16.0-70.0); PLATELET COUNT 147 TH/MM3 (150-450); RED BLOOD COUNT 4.34 MIL/MM3 (4.50-5.90); RED CELL DISTRIBUTION WIDTH 14.8 % (11.6-17.2); WHITE BLOOD COUNT 4.3 TH/MM3 (4.0-11.0)
[2017-07-10 02:46] LABS: ALBUMIN 2.4 GM/DL (3.4-5.0); ALT (GPT) 20 U/L (12-78); AST (GOT) 39 U/L (15-37); BICARBONATE 25.7 MEQ/L (21.0-32.0); BLOOD UREA NITROGEN 27 MG/DL (7-18); CALCIUM 8.1 MG/DL (8.5-10.1); CHLORIDE 111 MEQ/L (98-107); CREATININE 1.26 MG/DL (0.60-1.30); GLOMERULAR FILTRATION RATE 72 ML/MIN (>89); GLUCOSE,RANDOM 87 MG/DL (74-106); SODIUM (NA) 144 MEQ/L (136-145)
[2017-07-10 02:49] LABS: ALKALINE PHOSPHATASE 58 U/L (45-117); TOTAL BILIRUBIN ADULT 0.8 MG/DL (0.2-1.0); TOTAL PROTEIN 8.9 GM/DL (6.4-8.2)
[2017-07-10] MEDS: RESP: ALBUTEROL 2.5 MG/IPRATROPIUM 0.5 MG NEB (SCH) INH ×4 (03:23→19:52)
[2017-07-10] MEDS ORDERED: LORazepam 2 MG/ML VIAL IV PUSH ONE (05:15)
--- NOTE | 2017-07-10 07:58 | HHI.FPPN ---
Subjective Remarks Patient was seen and examined this morning. He states he wants to leave AMA because he is hungry and frustrated but has since decided to stay. He denies chest pain and shortness of breath, and has been ambulating without difficulty. No other complaints. No urinary symptoms. (Anita Rodriguez MD) Objective Vitals Vital Signs Date Time Temp Pulse Resp B/P (MAP) Pulse Ox O2 Delivery O2 Flow Rate FiO2 07/10/17 06:05 64 07/10/17 05:24 64 07/10/17 04:10 67 07/10/17 03:39 98.0 74 21 151/76 (101) 98 07/10/17 03:39 60 07/10/17 02:04 65 07/10/17 01:23 86 07/10/17 00:00 70 07/09/17 23:10 98.3 76 20 157/76 (103) 96 07/09/17 23:00 78 07/09/17 22:00 66 07/09/17 21:00 82 07/09/17 20:00 66 07/09/17 19:24 98 Nasal Cannula 3.00 07/09/17 19:00 77 07/09/17 19:00 98.4 78 25 200/103 (135) 97 07/09/17 18:00 74 07/09/17 17:58 Nasal Cannula 07/09/17 17:57 97.9 75 17 161/105 (123) 97 07/09/17 17:00 78 20 158/105 (122) 98 Nasal Cannula 2.00 07/09/17 16:17 76 20 160/112 (128) 98 Aerosol Mask 07/09/17 15:21 86 20 164/104 (124) 97 Nasal Cannula 2.00 07/09/17 14:29 83 20 177/113 (134) 97 Nasal Cannula 2.00 169/108 (128) 07/09/17 13:45 82 20 171/113 (132) 96 Nasal Cannula 2.00 07/09/17 13:34 90 171/113 07/09/17 13:00 77 20 167/109 (128) 97 Nasal Cannula 2.00 07/09/17 12:26 82 20 158/98 (118) 97 Nasal Cannula 2.00 07/09/17 12:04 81 20 173/107 (129) 96 Nasal Cannula 2.00 07/09/17 11:34 98 20 208/111 (143) 97 Nasal Cannula 3.00 07/09/17 11:19 97 Nasal Cannula 3.00 07/09/17 09:25 80 20 168/102 (124) 97 Room Air 176/112 (133) 07/09/17 09:16 83 20 98 Room Air I/O 07/09/17 07/09/17 07/09/17 07/10/17 07/10/17 07/10/17 07:00 15:00 23:00 07:00 15:00 23:00 Intake Total 420 ml Output Total 600 ml Balance -180 ml Intake Oral 420 ml Output Urine Total 600 ml Bladder Scan Volume Amount 533 ml # Voids 1 # Bowel Movements 0 (Anita Rodriguez MD) Result Diagram: 07/10/17 0131 07/10/17 [address] Angiography 07/09/17 0952 Signed Impressions: Service Date/Time: Sunday, July 09, 2017 10:31 - CONCLUSION: 1. No evidence of pulmonary embolism. 2. 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 3. Nonspecific 7 mm nodular infiltrate right apex. Recommend followup noncontrast CT thorax in 3 months after appropriate medical therapy. Cecil Soriano MD Chest X-Ray 07/09/17 0000 Signed Impressions: Service Date/Time: Sunday, July 09, 2017 07:26 - CONCLUSION: 1. Diffuse increased interstitial markings which are nonspecific and could represent acute pneumonitis, mild pulmonary vascular congestion or chronic interstitial disease. Clinical correlation is recommended. 2. Cardiomegaly. Ankush Parrish MD Objective Remarks GEN: Well-developed, well-nourished patient. No acute distress. Walking about the room without difficulty SKIN: No rashes, ecchymoses or lesions. Warm and dry. CV: Regular rate and rhythm. Murmur again appreciated LUNGS: Clear to auscultation bilaterally. Normal respiratory effort. No wheezes , rales, rhonchi. GI: Soft, nondistended. Bowel sounds present. EXT: No edema. No calf tenderness. NEURO/PSYCH: Awake, alert. Appropriate insight and judgment. Normal speech Procedures Echocardiogram Report 07/09/2017: Normal left ventricular size. Mild concentric left ventricular hypertrophy. The left ventricular systolic function is low normal with an estimated ejection fraction in the range of 50- 55%. The left atrial size is mildly dilated. Severe mitral valve regurgitation. The mitral valve regurgitation jet is directed anteriorly. Moderate thickening of the mitral valve leaflets. Cannot rule out mobile echodensity on posterior mitral valve leaflet on the inflow side of the mitral valve apparatus. Posterior mitral valve leaflet prolapse. The estimated pulmonary arterial pressure is 54 mmHg. There is mild tricuspid valve regurgitation. Mild pulmonary valve regurgitation. Medications and IVs Inpatient Medications Albuterol Sulfate (Albuterol Neb) 2.5 mg Q2HR NEB PRN INH SHORTNESS OF BREATH; Start 07/09/17 at 11:45 Albuterol/ Ipratropium (Duoneb Neb) 1 ampule Q6HR NEB INH Last administered on 07/10/17at 03:23; Start 07/09/17 at 12:30 Aspirin (Aspirin) 325 mg ONCE ONCE PO Last administered on 07/09/17at 09:31; Start 07/09/17 at 09:30; Stop 07/09/17 at 09:31; Status DC Carvedilol (Coreg) 6.25 mg Q12HR PO Last administered on 07/09/17at 19:54; Start 07/09/17 at 12:45 Ceftriaxone Sodium 1000 mg/ Sodium Chloride 100 ml @ 200 mls/hr Q24H IV ; Start 07/10/17 at 07:15; Status UNV Clonidine (Catapres) 0.1 mg Q6H PRN PO SEE LABEL COMMENTS; Start 07/09/17 at 20 :00 Dextrose (D50w (Vial) Inj) 50 ml UNSCH PRN IV PUSH HYPOGLYCEMIA-SEE COMMENTS; Start 07/09/17 at 11:15 Enalaprilat (Vasotec Inj) 1.25 mg Q6H PRN IV PUSH SBP> OR = 180, DBP> OR = 100 Last administered on 07/09/17at 18:55; Start 07/09/17 at 11:15 Glucagon (Glucagon Inj) 1 mg UNSCH PRN OTHER HYPOGLYCEMIA-SEE COMMENTS; Start 07/09/17 at 11:15 Heparin Sodium (Porcine) (Heparin Inj) 2,500 units UNSCH PRN IV PUSH APTT 25 TO 39; Start 07/09/17 at 17:45 Heparin Sodium/ Dextrose 250 ml @ 8 mls/hr TITRATE PRN IV Coagulation Management Last administered on 07/09/17at 13:44; Start 07/09/17 at 13:00 Hydralazine HCl (Apresoline Inj) 10 mg Q6H PRN IV PUSH SEE LABEL COMMENTS; Start 07/09/17 at 11:45; Stop 07/09/17 at 12:04; Status DC Hydralazine HCl (Apresoline) 50 mg Q8HR PRN PO SBP>160, DBP>90 Last administered on 07/09/17at 17:55; Start 07/09/17 at 12:45 Insulin Aspart (NovoLOG SUPPLEMENTAL SCALE) 1 ACHS SLIDING SCALE SQ Last administered on 07/09/17at 17:17; Start 07/09/17 at 12:00 Labetalol HCl (Trandate Inj) 10 mg Q6H PRN IV PUSH SEE LABEL COMMENTS; Start at 12:15; Stop 07/09/17 at 12:54; Status DC Lorazepam (Ativan Inj) 1 mg ONCE ONCE IV PUSH ; Start 07/10/17 at 05:15; Stop 07/10/17 at 05:16; Status DC Morphine Sulfate (Morphine Inj) 2 mg Q30M PRN IV PUSH CHEST PAIN; Start at 10:30 Nitroglycerin (Nitroglycerin 2% Oint) 1 inch ONCE ONCE TOPICAL Last administered on 07/09/17at 09:32; Start 07/09/17 at 09:30; Stop 07/09/17 at 09:31 ; Status DC Nitroglycerin (Nitrostat Sl) 0.4 mg Q5M PRN SL CHEST PAIN; Start 07/09/17 at 10 :30 Nitroglycerin/ Dextrose 250 ml @ 1.5 mls/hr TITRATE PRN IV Keep SBP > 90 mmHg Last administered on 07/09/17at 13:34; Start 07/09/17 at 13:00 Ondansetron HCl (Zofran Inj) 4 mg Q6H PRN IV PUSH NAUSEA OR VOMITING Last administered on 07/10/17at 00:32; Start 07/09/17 at 10:30 Sodium Chloride (NS Flush) 2 ml BID IV FLUSH Last administered on 07/09/17at 19: 54; Start 07/09/17 at 21:00 Tamsulosin HCl (Flomax) 0.4 mg HS PO Last administered on 07/09/17at 22:58; Start 07/09/17 at 22:00 (Anita Rodriguez MD) Urinary Catheter: No (Anita Rodriguez MD) Vascular Central Line Catheter: No (Anita Rodriguez MD) A/P Assessment and Plan 56 yo M with PMH of DM, HTN presenting to ED with 5 day history of progressive SOB, palpitations and chest discomfort. Has SOB at baseline. Found to have elevated troponin of 0.1, EKG with no ST changes on admission. Elevated D - Dimer. Admitted for PE workup, ACS workup. PE workup negative. Echo showing severe MR. SHAYAN pending. Discharge Planning Anticipate total inpatient stay of 2-4 days for further workup of symptoms and murmur. Unclear disposition, likely to home. SDW Dr. Painter, Dr. Israel (Anita Rodriguez MD) Attending Attestation Table rounds about patients admission discussed in detail with Dr Bernard, Dr Rodriguez, Dr Painter and Dr Woods this morning EMR reviewed Patient seen and examined with team Agree with the contents of above note See Orders Patient warned of complications of smoking (Ruperto Israel MD) Problem List: (1) Severe mitral regurgitation by prior echocardiogram ICD Codes: I34.0 - Nonrheumatic mitral (valve) insufficiency Status: Acute Plan: Patient noted to have echocardiogram 07/09 showing severe MR, low normal EF 50-55%, possible vegetation, elevated pulmonary pressures. SHAYAN pending for today, patient is NPO Continue telemetry, monitor for symptoms (2) SOB (shortness of breath) ICD Codes: R06.02 - Shortness of breath Status: Acute Plan: Improving. Will continue to monitor. Possibly related to severe MR, COPD , pulm HTN On admission: Patient reported 5 day history of worsening shortness of breath, palpitation and chest discomfort Has shortness of breath at baseline, acutely worsened on day of admission Chest x-ray on admission showed diffused increased interstitial markings Elevated d-dimer on admission of 1.95 CTA is negative for PE. Showed central lobar emphysema with chronic interstitial lung disease as well as a nonspecific 7 mm nodular infiltrate in R apex Bibasilar crackles on physical exam, orthopnea per history Duonebs q6hr, albuterol q2hr PRN Likely needs COPD w/u as outpt to include PFTs (3) UTI (urinary tract infection) ICD Codes: N39.0 - Urinary tract infection, site not specified Status: Acute Plan: UA showing pyuria, mod LE, occult blood Will start Rocephin 1g IV daily on 07/10 Urine culture showing Group D enterococcus Added blood cultures (4) Chest pain ICD Codes: R07.9 - Chest pain, unspecified Status: Resolved Plan: Troponins 0.12, 0.19, 0.20 on trending. EKGs showing LVH, poor R wave progression, no ST changes Echocardiogram as above Heparin gtt to continue SHAYAN pending On admission: Patient presented with palpitations, both sharp and dull chest pain that is non- radiating Present both at rest and after exertion EKG on admission showing LVH, no ST changes Troponin 0.1 on admission Concern for NSTEMI vs PE vs unstable angina Trend troponin, EKG, CKMB q4hr Hemodynamically stable on admission aside from elevated BP CTA negative for PE Received 1 dose ASA 325mg in ED Started Heparin drip with bolus Started Nitro drip for pain, BP Started Vasotec PRN for HTN UDS + for cocaine so discontinuing IV Labetalol - patient had not received a dose prior to discontinuing Patient asked about cocaine use specifically and he denied, counseled extensively on 07/10 on need for cessation (5) Hypertension ICD Codes: I10 - Essential (primary) hypertension Status: Chronic Plan: Patient has a known diagnosis of hypertension Takes an oral medication that he cannot cause with that is Spoke with his pharmacy and they stated he was on Lisinopril 20mg daily but has not had this filled in 1 year. Blood pressures are elevated up to 176/112 on admission Will start Vasotec 1.25 mg IV push every 6 hours as needed for systolic blood pressure over 180 or diastolic blood pressure over 100 (6) Diabetes ICD Codes: E11.9 - Type 2 diabetes mellitus without complications Status: Chronic Plan: Patient with a known history of diabetes Spoke with his pharmacy and they stated he has not but has not had this filled in 1 year. Random glucose of 96 on admission Contacting pharmacy to determine what medicines he takes Continue low-dose sliding scale (7) Gout ICD Codes: M10.9 - Gout, unspecified Status: Chronic Plan: Known history of gout Will monitor symptoms (8) Pulmonary nodule ICD Codes: R91.1 - Solitary pulmonary nodule Status: Acute Plan: Concern for chronic lung process as patient has significant smoking history, has digital clubbing and weight loss Note 7mm nodule on CT scan, will discuss with patient to f/u in 2-3 months (9) Substance abuse ICD Codes: F19.10 - Other psychoactive substance abuse, uncomplicated Status: Chronic Plan: UDS + cocaine, tobacco abuse Counseled will be provided on cessation and substance resources (10) FEN Status: Acute Plan: F: holding IVF for now until pending workup dictates clinical course E: WNL, no sign of CHRISTINA, will replete as needed N: NPO for now until clinical course is determined Heparin drip (Anita Rodriguez MD) Problem Qualifiers (1) Hypertension: Qualified Codes: I10 - Essential (primary) hypertension (2) Diabetes: Qualified Codes: E11.9 - Type 2 diabetes mellitus without complications; 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
[2017-07-10] MEDS: INSULIN ASPART SUPPLEMENTAL SCALE SQ SCH ×4 (08:00→20:57)
--- NOTE | 2017-07-10 08:31 | PD.CARD.PN ---
Subjective Subjective Remarks Still with chest pain and shortness of breath. Discussed results of echocardiogram and patient currently agreeable for SHAYAN today. (Pipo Gomez) Objective Medications Current Medications Medications (Trade) Dose Ordered Sig/Jakob Route Start Time Stop Time Status Last Admin (NS Flush) 2 ml UNSCH PRN IV FLUSH 07/09/17 10:00 (NS Flush) 2 ml BID IV FLUSH 07/09/17 21:00 07/09/17 19:54 (Nitrostat Sl) 0.4 mg Q5M PRN SL 07/09/17 10:30 (Morphine Inj) 2 mg Q30M PRN IV PUSH 07/09/17 10:30 (Zofran Inj) 4 mg Q6H PRN IV PUSH 07/09/17 10:30 07/10/17 00:32 (D50w (Vial) Inj) 50 ml UNSCH PRN IV PUSH 07/09/17 11:15 (Glucagon Inj) 1 mg UNSCH PRN OTHER 07/09/17 11:15 (NovoLOG SUPPLEMENTAL SCALE) 1 ACHS SLIDING SCALE SQ 07/09/17 12:00 07/09/17 17:17 (Vasotec Inj) 1.25 mg Q6H PRN IV PUSH 07/09/17 11:15 07/09/17 18:55 Nitroglycerin/ Dextrose 250 ml @ 1.5 mls/hr TITRATE PRN IV 07/09/17 13:00 07/09/17 13:34 (Heparin Inj) 5,000 units UNSCH PRN IV PUSH 07/09/17 17:45 (Heparin Inj) 2,500 units UNSCH PRN IV PUSH 07/09/17 17:45 Heparin Sodium/ Dextrose 250 ml @ 8 mls/hr TITRATE PRN IV 07/09/17 13:00 07/09/17 13:44 (Duoneb Neb) 1 ampule Q6HR NEB INH 07/09/17 12:30 07/10/17 03:23 (Albuterol Neb) 2.5 mg Q2HR NEB PRN INH 07/09/17 11:45 (Coreg) 6.25 mg Q12HR PO 07/09/17 12:45 07/09/17 19:54 (Apresoline) 50 mg Q8HR PRN PO 07/09/17 12:45 07/09/17 17:55 (Catapres) 0.1 mg Q6H PRN PO 07/09/17 20:00 (Flomax) 0.4 mg HS PO 07/09/17 22:00 07/09/17 22:58 Ceftriaxone Sodium 1000 mg/ Sodium Chloride 100 ml @ 200 mls/hr Q24H IV 07/10/17 08:00 Vital Signs / I&O Vital Signs Date Time Temp Pulse Resp B/P (MAP) Pulse Ox O2 Delivery O2 Flow Rate FiO2 07/10/17 07:15 96.4 78 16 156/94 (114) 96 07/10/17 07:15 83 07/10/17 06:05 64 07/10/17 05:24 64 07/10/17 04:10 67 07/10/17 03:39 98.0 74 21 151/76 (101) 98 07/10/17 03:39 60 07/10/17 02:04 65 07/10/17 01:23 86 07/10/17 00:00 70 07/09/17 23:10 98.3 76 20 157/76 (103) 96 07/09/17 23:00 78 07/09/17 22:00 66 07/09/17 21:00 82 07/09/17 20:00 66 07/09/17 19:24 98 Nasal Cannula 3.00 07/09/17 19:00 77 07/09/17 19:00 98.4 78 25 200/103 (135) 97 07/09/17 18:00 74 07/09/17 17:58 Nasal Cannula 07/09/17 17:57 97.9 75 17 161/105 (123) 97 07/09/17 17:00 78 20 158/105 (122) 98 Nasal Cannula 2.00 07/09/17 16:17 76 20 160/112 (128) 98 Aerosol Mask 07/09/17 15:21 86 20 164/104 (124) 97 Nasal Cannula 2.00 07/09/17 14:29 83 20 177/113 (134) 97 Nasal Cannula 2.00 169/108 (128) 07/09/17 13:45 82 20 171/113 (132) 96 Nasal Cannula 2.00 07/09/17 13:34 90 171/113 07/09/17 13:00 77 20 167/109 (128) 97 Nasal Cannula 2.00 07/09/17 12:26 82 20 158/98 (118) 97 Nasal Cannula 2.00 07/09/17 12:04 81 20 173/107 (129) 96 Nasal Cannula 2.00 07/09/17 11:34 98 20 208/111 (143) 97 Nasal Cannula 3.00 07/09/17 11:19 97 Nasal Cannula 3.00 07/09/17 09:25 80 20 168/102 (124) 97 Room Air 176/112 (133) 07/09/17 09:16 83 20 98 Room Air I/O 07/09/17 07/09/17 07/09/17 07/10/17 07/10/17 07/10/17 07:00 15:00 23:00 07:00 15:00 23:00 Intake Total 420 ml Output Total 600 ml Balance -180 ml Intake Oral 420 ml Output Urine Total 600 ml Bladder Scan Volume Amount 533 ml # Voids 1 # Bowel Movements 0 Physical Exam GENERAL: Well-developed well-nourished. In no acute distress. NECK: No carotid bruits. No JVD. CARDIOVASCULAR: Regular rate and rhythm. Loud systolic murmur best appreciated at the apex. RESPIRATORY: No accessory muscle use. Clear to auscultation. Breath sounds equal bilaterally. MUSCULOSKELETAL: No clubbing or cyanosis. No edema. NEUROLOGICAL: Awake and alert. Normal speech. Laboratory Laboratory Tests Test 07/09/17 11:45 07/09/17 12:08 07/09/17 16:42 07/09/17 19:39 Total Creatine Kinase 159 U/L 191 U/L 186 U/L Creatine Kinase MB 1.9 NG/ML 3.0 NG/ML 2.9 NG/ML Troponin I 0.12 NG/ML 0.19 NG/ML 0.20 NG/ML B-Type Natriuretic Peptide 443 PG/ML Urine Color YELLOW Urine Turbidity CLEAR Urine pH 6.5 Urine Specific Amelia 1.044 Urine Protein 300 mg/dL Urine Glucose (UA) NEG mg/dL Urine Ketones NEG mg/dL Urine Occult Blood MOD Urine Nitrite NEG Urine Bilirubin NEG Urine Urobilinogen 4.0 MG/DL Urine Leukocyte Esterase MOD Urine RBC 15 /hpf Urine WBC 79 /hpf Urine WBC Clumps RARE Urine Bacteria MOD /hpf Urine Hyaline Casts 1 /lpf Urine Mucus FEW /lpf Microscopic Urinalysis Comment CULTURE INDICATED Urine Opiates Screen NEG Urine Barbiturates Screen NEG Urine Amphetamines Screen NEG Urine Benzodiazepines Screen NEG Urine Cocaine Screen POS Urine Cannabinoids Screen POS Activated Partial Thromboplast Time 43.0 SEC Hemoglobin A1c 5.5 % Magnesium Level 1.9 MG/DL Triglycerides Level 66 MG/DL Cholesterol Level 149 MG/DL LDL Cholesterol 89 MG/DL HDL Cholesterol 47.0 MG/DL Cholesterol/HDL Ratio 3.17 RATIO Test 07/10/17 01:31 White Blood Count 4.3 TH/MM3 Red Blood Count 4.34 MIL/MM3 Hemoglobin 12.5 GM/DL Hematocrit 38.1 % Mean Corpuscular Volume 87.7 FL Mean Corpuscular Hemoglobin 28.7 PG Mean Corpuscular Hemoglobin Concent 32.8 % Red Cell Distribution Width 14.8 % Platelet Count 147 TH/MM3 Mean Platelet Volume 9.0 FL Neutrophils (%) (Auto) 55.2 % Lymphocytes (%) (Auto) 30.4 % Monocytes (%) (Auto) 10.0 % Eosinophils (%) (Auto) 3.5 % Basophils (%) (Auto) 0.9 % Neutrophils # (Auto) 2.4 TH/MM3 Lymphocytes # (Auto) 1.3 TH/MM3 Monocytes # (Auto) 0.4 TH/MM3 Eosinophils # (Auto) 0.1 TH/MM3 Basophils # (Auto) 0.0 TH/MM3 CBC Comment DIFF FINAL Differential Comment Activated Partial Thromboplast Time 42.4 SEC Blood Urea Nitrogen 27 MG/DL Creatinine 1.26 MG/DL Random Glucose 87 MG/DL Total Protein 8.9 GM/DL Albumin 2.4 GM/DL Calcium Level 8.1 MG/DL Alkaline Phosphatase 58 U/L Aspartate Amino Transf (AST/SGOT) 39 U/L Alanine Aminotransferase (ALT/SGPT) 20 U/L Total Bilirubin 0.8 MG/DL Sodium Level 144 MEQ/L Potassium Level 3.6 MEQ/L Chloride Level 111 MEQ/L Carbon Dioxide Level 25.7 MEQ/L Anion Gap 7 MEQ/L Estimat Glomerular Filtration Rate 72 ML/MIN Imaging Last [address] Angiography 07/09/17 0952 Signed Impressions: Service Date/Time: Sunday, July 09, 2017 10:31 - CONCLUSION: 1. No evidence of pulmonary embolism. 2. 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 3. Nonspecific 7 mm nodular infiltrate right apex. Recommend followup noncontrast CT thorax in 3 months after appropriate medical therapy. Cecil Soriano MD (Pipo Gomez) Assessment and Plan Assessment and Plan 56-year-old male with a past medical history of hypertension and noncompliance who presented with progressive shortness of breath and intermittent chest pain. Patient was found to have a mild systolic murmur and echocardiogram was ordered. Echocardiogram shows severe mitral regurgitation with normal ejection fraction. Chest pain/shortness of breath: At this time recommend workup for severe MR with SHAYAN today. (Pipo Gomez) Assessment and Plan severe mitral valve regurgitation with myxomatous/partially flail posterior leaflet CT surgical consult today cardiac catheterization tomorrow NPO p KAITY (Clarence Villegas MD) Pipo Gomez Jul 10, 2017 08:31 Clarence Villegas MD Jul 10, 2017 14:55
[2017-07-10] MEDS: SODIUM CHLORIDE 0.9% FLUSH 10 ML FLUSH IV FLUSH SCH ×2 (09:00→20:53)
[2017-07-10] MEDS: CARVEDILOL 6.25 MG TAB PO SCH ×2 (09:33→20:52)
[2017-07-10] MEDS: cefTRIAXone INJ 1,000 MG in SODIUM CHLORIDE 0.9% INJ 100 ML IV SCH (09:48)
[2017-07-10] MEDS ORDERED: PROPOFOL 200 MG/20 ML AMP ONE (13:58)
[2017-07-10] MEDS ORDERED: PHENYLEPH/NS 1000 MCG/10 ML SYR ONE (14:06)
[2017-07-10] MEDS ORDERED: SUCCINYLCHOLINE CHLORIDE 100 MG/5 ML SYRINGE ONE (14:07)
[2017-07-10] MEDS ORDERED: ePHEDrine/NS 25 MG/5 ML SYRINGE ONE (14:07)
--- NOTE | 2017-07-10 20:39 | EKG ---
Date Performed: 07/09/2017 Time Performed: 18:57:34 PTAGE: 56 years EKG: Sinus rhythm with multifocal PVCs. Poor R wave progression - probable normal variant Septal T wave changes are no nspecific Abnormal ECG PREVIOUS TRACING : 07/09/2017 16.33 Since the previous tracing, no significant change noted DOCTOR: Riccardo Newell Interpretating Date/Time 07/10/2017 20:38:09
--- NOTE | 2017-07-10 20:44 | EKG ---
Date Performed: 07/09/2017 Time Performed: 16:33:44 PTAGE: 56 years EKG: Sinus rhythm WITH FREQUENT VENTRICULAR PREMATURE COMPLEXES IN A BIGEMINAL PATTERN SEPTAL MYOCARDIAL INFARCTION AB NORMAL ECG PREVIOUS TRACING : 07/09/2017 11.37 Since the previous tracing, no significant change noted DOCTOR: Riccardo Newell Interpretating Date/Time 07/10/2017 20:43:06
[2017-07-10] MEDS: TAMSULOSIN HCL 0.4 MG CAP PO SCH (20:52)
--- NOTE | 2017-07-10 21:00 | EKG ---
Date Performed: 07/09/2017 Time Performed: 11:37:08 PTAGE: 56 years EKG: Sinus rhythm WITH FREQUENT VENTRICULAR PREMATURE COMPLEXES VOLTAGE CRITERIA FOR LVH POSSIBLE SEPTAL MYOCARDIAL IN FARCTION ABNORMAL ECG PREVIOUS TRACING : 07/09/2017 07.19 Compared to previous tracing PVCS ARE NEW DOCTOR: Riccardo Newell Interpretating Date/Time 07/10/2017 20:58:47
[2017-07-10] MEDS: NITROGLYCERIN-D5W 50 MG/250 ML 250 ML IV PRN (22:55)
[2017-07-10] MEDS: HEPARIN-D5W 25,000 U/250 ML 250 ML IV PRN (23:59)
[2017-07-11] VITALS (29 sets, daily range): BP systolic 135–147; BP diastolic 76–92; PULSE 61–93; RESP 18–20; TEMP 97.7–98.2; O2SAT 94–98
[2017-07-11 02:31] LABS: AUTOMATED NEUTROPHIL # 2.5 TH/MM3 (1.8-7.7); BASOPHIL % 1.1 % (0.0-2.0); EOSINOPHIL # 0.3 TH/MM3 (0-0.4); EOSINOPHIL % 7.4 % (0.0-4.0); HEMOGLOBIN 11.3 GM/DL (13.0-17.0); LYMPH % 23.4 % (9.0-44.0); MEAN CELL VOLUME 86.3 FL (80.0-100.0); MEAN CORPUSCULAR HEMOGLOBIN 28.8 PG (27.0-34.0); MEAN CORPUSCULAR HGB CONC 33.3 % (32.0-36.0); MEAN PLATELET VOLUME 9.2 FL (7.0-11.0); MONO % 10.2 % (0.0-8.0); MONOCYTE # 0.4 TH/MM3 (0-0.9); NEUT % 57.9 % (16.0-70.0); PLATELET COUNT 125 TH/MM3 (150-450); RED BLOOD COUNT 3.94 MIL/MM3 (4.50-5.90); RED CELL DISTRIBUTION WIDTH 14.7 % (11.6-17.2); WHITE BLOOD COUNT 4.3 TH/MM3 (4.0-11.0)
[2017-07-11 03:04] LABS: BICARBONATE 25.1 MEQ/L (21.0-32.0); CALCIUM 7.8 MG/DL (8.5-10.1); CREATININE 1.25 MG/DL (0.60-1.30)
[2017-07-11] MEDS: RESP: ALBUTEROL 2.5 MG/IPRATROPIUM 0.5 MG NEB (SCH) INH ×4 (03:17→20:02)
--- NOTE | 2017-07-11 07:53 | PD.CARD.PN ---
Subjective Subjective Remarks Chest pain and shortness of breath unchanged. Patient agreeable for cardiac catheterization and CT surgery evaluation today. All questions answered. Objective Medications Current Medications Medications (Trade) Dose Ordered Sig/Jakob Route Start Time Stop Time Status Last Admin (NS Flush) 2 ml UNSCH PRN IV FLUSH 07/09/17 10:00 (NS Flush) 2 ml BID IV FLUSH 07/09/17 21:00 07/10/17 20:53 (Nitrostat Sl) 0.4 mg Q5M PRN SL 07/09/17 10:30 (Morphine Inj) 2 mg Q30M PRN IV PUSH 07/09/17 10:30 (Zofran Inj) 4 mg Q6H PRN IV PUSH 07/09/17 10:30 07/10/17 00:32 (D50w (Vial) Inj) 50 ml UNSCH PRN IV PUSH 07/09/17 11:15 (Glucagon Inj) 1 mg UNSCH PRN OTHER 07/09/17 11:15 (NovoLOG SUPPLEMENTAL SCALE) 1 ACHS SLIDING SCALE SQ 07/09/17 12:00 07/10/17 20:57 (Vasotec Inj) 1.25 mg Q6H PRN IV PUSH 07/09/17 11:15 07/09/17 18:55 Nitroglycerin/ Dextrose 250 ml @ 1.5 mls/hr TITRATE PRN IV 07/09/17 13:00 07/10/17 22:55 (Heparin Inj) 5,000 units UNSCH PRN IV PUSH 07/09/17 17:45 (Heparin Inj) 2,500 units UNSCH PRN IV PUSH 07/09/17 17:45 Heparin Sodium/ Dextrose 250 ml @ 8 mls/hr TITRATE PRN IV 07/09/17 13:00 07/10/17 23:59 (Duoneb Neb) 1 ampule Q6HR NEB INH 07/09/17 12:30 07/10/17 19:52 (Albuterol Neb) 2.5 mg Q2HR NEB PRN INH 07/09/17 11:45 (Coreg) 6.25 mg Q12HR PO 07/09/17 12:45 07/10/17 20:52 (Apresoline) 50 mg Q8HR PRN PO 07/09/17 12:45 07/09/17 17:55 (Catapres) 0.1 mg Q6H PRN PO 07/09/17 20:00 (Flomax) 0.4 mg HS PO 07/09/17 22:00 07/10/17 20:52 Ceftriaxone Sodium 1000 mg/ Sodium Chloride 100 ml @ 200 mls/hr Q24H IV 07/10/17 08:00 07/10/17 09:48 Vital Signs / I&O Vital Signs Date Time Temp Pulse Resp B/P (MAP) Pulse Ox O2 Delivery O2 Flow Rate FiO2 07/11/17 06:00 61 07/11/17 05:00 74 07/11/17 04:15 Nasal Cannula 2.00 07/11/17 04:00 77 07/11/17 03:00 78 07/11/17 02:00 65 07/11/17 01:00 82 07/11/17 00:00 72 07/10/17 23:17 97 Nasal Cannula 2.00 07/10/17 23:17 72 18 134/78 (96) 97 07/10/17 23:00 78 07/10/17 22:55 134/78 07/10/17 22:00 72 07/10/17 22:00 97 Nasal Cannula 2.00 07/10/17 21:00 74 07/10/17 20:00 78 07/10/17 19:53 97 Nasal Cannula 3.00 07/10/17 19:30 97.9 69 20 145/80 (101) 97 07/10/17 19:00 65 07/10/17 18:00 75 07/10/17 17:00 60 07/10/17 16:00 67 07/10/17 15:45 72 07/10/17 15:45 95 Nasal Cannula 2.00 07/10/17 15:40 97.5 69 17 136/75 (95) 95 07/10/17 13:00 55 07/10/17 12:00 72 07/10/17 11:00 83 07/10/17 11:00 72 16 141/87 (105) 98 07/10/17 10:00 74 07/10/17 09:32 153/87 (109) 07/10/17 09:00 96 Nasal Cannula 3.00 I/O 07/10/17 07/10/17 07/10/17 07/11/17 07/11/17 07/11/17 07:00 15:00 23:00 07:00 15:00 23:00 Intake Total 420 ml 100 ml 1008 ml 438.1 ml Output Total 600 ml 250 ml 350 ml Balance -180 ml 100 ml 758 ml 88.1 ml Intake Oral 420 ml 600 ml 240 ml IV Total 100 ml 408 ml 198.1 ml Output Urine Total 600 ml 250 ml 350 ml # Voids 3 # Bowel Movements 0 0 Physical Exam GENERAL: Well-developed well-nourished. In no acute distress. NECK: No carotid bruits. No JVD. CARDIOVASCULAR: Regular rate and rhythm. Loud systolic murmur best appreciated at the apex. RESPIRATORY: No accessory muscle use. Clear to auscultation. Breath sounds equal bilaterally. MUSCULOSKELETAL: No clubbing or cyanosis. No edema. NEUROLOGICAL: Awake and alert. Normal speech. Laboratory Laboratory Tests Test 07/10/17 08:59 07/10/17 19:45 07/11/17 02:08 Activated Partial Thromboplast Time 32.1 SEC 40.8 SEC 41.8 SEC White Blood Count 4.3 TH/MM3 Red Blood Count 3.94 MIL/MM3 Hemoglobin 11.3 GM/DL Hematocrit 34.0 % Mean Corpuscular Volume 86.3 FL Mean Corpuscular Hemoglobin 28.8 PG Mean Corpuscular Hemoglobin Concent 33.3 % Red Cell Distribution Width 14.7 % Platelet Count 125 TH/MM3 Mean Platelet Volume 9.2 FL Neutrophils (%) (Auto) 57.9 % Lymphocytes (%) (Auto) 23.4 % Monocytes (%) (Auto) 10.2 % Eosinophils (%) (Auto) 7.4 % Basophils (%) (Auto) 1.1 % Neutrophils # (Auto) 2.5 TH/MM3 Lymphocytes # (Auto) 1.0 TH/MM3 Monocytes # (Auto) 0.4 TH/MM3 Eosinophils # (Auto) 0.3 TH/MM3 Basophils # (Auto) 0.0 TH/MM3 CBC Comment DIFF FINAL Differential Comment Blood Urea Nitrogen 28 MG/DL Creatinine 1.25 MG/DL Random Glucose 99 MG/DL Calcium Level 7.8 MG/DL Sodium Level 143 MEQ/L Potassium Level 3.4 MEQ/L Chloride Level 112 MEQ/L Carbon Dioxide Level 25.1 MEQ/L Anion Gap 6 MEQ/L Estimat Glomerular Filtration Rate 72 ML/MIN Imaging Last Impressions CT Angiography 3/20/18 0952 Signed Impressions: Service Date/Time: Sunday, July 09, 2017 10:31 - CONCLUSION: 1. No evidence of pulmonary embolism. 2. 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 3. Nonspecific 7 mm nodular infiltrate right apex. Recommend followup noncontrast CT thorax in 3 months after appropriate medical therapy. Cecil Soriano MD Chest X-Ray 07/09/17 0000 Signed Impressions: Service Date/Time: Sunday, July 09, 2017 07:26 - CONCLUSION: 1. Diffuse increased interstitial markings which are nonspecific and could represent acute pneumonitis, mild pulmonary vascular congestion or chronic interstitial disease. Clinical correlation is recommended. 2. Cardiomegaly. Ankush Parrish MD Assessment and Plan Assessment and Plan 56-year-old male with a past medical history of hypertension and noncompliance who presented with progressive shortness of breath and intermittent chest pain. Patient was found to have a mild systolic murmur and echocardiogram was ordered. Echocardiogram shows severe mitral regurgitation with normal ejection fraction. Chest pain/shortness of breath: Performed SHAYAN 07/10 severe mitral valve regurgitation with myxomatous/partially flail posterior leaflet. CT surgery consulted. Plan for cardiac catheterization today. Pipo Gomez Jul 11, 2017 07:52
[2017-07-11] MEDS: INSULIN ASPART SUPPLEMENTAL SCALE SQ SCH ×4 (08:00→21:00)
[2017-07-11] MEDS: RESP: ALBUTEROL 2.5 MG/3 ML NEB (PRN) INH (08:08)
[2017-07-11] MEDS: CARVEDILOL 6.25 MG TAB PO SCH ×2 (08:27→20:47)
[2017-07-11] MEDS: cefTRIAXone INJ 1,000 MG in SODIUM CHLORIDE 0.9% INJ 100 ML IV SCH (08:28)
[2017-07-11] MEDS: SODIUM CHLORIDE 0.9% FLUSH 10 ML FLUSH IV FLUSH SCH ×2 (08:28→20:49)
--- NOTE | 2017-07-11 09:00 | HHI.FPPN ---
Subjective Remarks No acute events overnight. Patient continues to feel chest discomfort/SOB but states it is stable. Denies N/V, abdominal pain. He's hungry and is eager to have lunch after his procedure. Objective Vitals Vital Signs Date Time Temp Pulse Resp B/P (MAP) Pulse Ox O2 Delivery O2 Flow Rate FiO2 07/11/17 08:08 98 Nasal Cannula 3.00 07/11/17 06:00 61 07/11/17 05:00 74 07/11/17 04:15 Nasal Cannula 2.00 07/11/17 04:00 77 07/11/17 03:00 78 07/11/17 02:00 65 07/11/17 01:00 82 07/11/17 00:00 72 07/10/17 23:17 97 Nasal Cannula 2.00 07/10/17 23:17 72 18 134/78 (96) 97 07/10/17 23:00 78 07/10/17 22:55 134/78 07/10/17 22:00 72 07/10/17 22:00 97 Nasal Cannula 2.00 07/10/17 21:00 74 07/10/17 20:00 78 07/10/17 19:53 97 Nasal Cannula 3.00 07/10/17 19:30 97.9 69 20 145/80 (101) 97 07/10/17 19:00 65 07/10/17 18:00 75 07/10/17 17:00 60 07/10/17 16:00 67 07/10/17 15:45 72 07/10/17 15:45 95 Nasal Cannula 2.00 07/10/17 15:40 97.5 69 17 136/75 (95) 95 07/10/17 13:00 55 07/10/17 12:00 72 07/10/17 11:00 83 07/10/17 11:00 72 16 141/87 (105) 98 07/10/17 10:00 74 07/10/17 09:32 153/87 (109) 07/10/17 09:00 96 Nasal Cannula 3.00 I/O 07/10/17 07/10/17 07/10/17 07/11/17 07/11/17 07/11/17 07:00 15:00 23:00 07:00 15:00 23:00 Intake Total 420 ml 100 ml 1008 ml 438.1 ml Output Total 600 ml 250 ml 350 ml Balance -180 ml 100 ml 758 ml 88.1 ml Intake Oral 420 ml 600 ml 240 ml IV Total 100 ml 408 ml 198.1 ml Output Urine Total 600 ml 250 ml 350 ml # Voids 3 # Bowel Movements 0 0 Result Diagram: 07/11/1720707/11/17207 Objective Remarks GEN: Well-developed, well-nourished patient. No acute distress. Walking about the room without difficulty SKIN: No rashes, ecchymoses or lesions. Warm and dry. CV: Regular rate and rhythm. Murmur again appreciated LUNGS: Clear to auscultation bilaterally. Normal respiratory effort. No wheezes , rales, rhonchi. GI: Soft, nondistended. Bowel sounds present. EXT: No edema. No calf tenderness. NEURO/PSYCH: Awake, alert. Appropriate insight and judgment. Normal speech Procedures Echocardiogram Report 07/09/2017: Normal left ventricular size. Mild concentric left ventricular hypertrophy. The left ventricular systolic function is low normal with an estimated ejection fraction in the range of 50- 55%. The left atrial size is mildly dilated. Severe mitral valve regurgitation. The mitral valve regurgitation jet is directed anteriorly. Moderate thickening of the mitral valve leaflets. Cannot rule out mobile echodensity on posterior mitral valve leaflet on the inflow side of the mitral valve apparatus. Posterior mitral valve leaflet prolapse. The estimated pulmonary arterial pressure is 54 mmHg. There is mild tricuspid valve regurgitation. Mild pulmonary valve regurgitation. A/P Assessment and Plan 56 yo M with PMH of DM, HTN presenting to ED with 5 day history of progressive SOB, palpitations and chest discomfort. Has SOB at baseline. Found to have elevated troponin of 0.1, EKG with no ST changes on admission. Elevated D - Dimer. Admitted for PE workup, ACS workup. PE workup negative. Echo showing severe MR. SHAYAN showing severe mitral regurg and myxomatous/partially flail posterior leaflet on 07/10. CT surgery consulted. Heart cath planned for 07/11 per cardiology Discharge Planning Anticipate total inpatient stay of 2-4 days for further workup of symptoms and murmur. Unclear disposition, likely to home. SDW Dr. Israel Problem List: (1) Severe mitral regurgitation by prior echocardiogram ICD Codes: I34.0 - Nonrheumatic mitral (valve) insufficiency Status: Acute Plan: Patient noted to have echocardiogram 07/09 showing severe MR, low normal EF 50-55%, possible vegetation, elevated pulmonary pressures. SHAYAN showed severe mitral regurg and myxomatous/partially flail posterior leaflet on 07/10 , CT surgery consulted patient is NPO for heart cath on 07/11 Continue telemetry, monitor for symptoms (2) SOB (shortness of breath) ICD Codes: R06.02 - Shortness of breath Status: Acute Plan: Improving. Will continue to monitor. Possibly related to severe MR, COPD , pulm HTN On admission: Patient reported 5 day history of worsening shortness of breath, palpitation and chest discomfort Has shortness of breath at baseline, acutely worsened on day of admission Chest x-ray on admission showed diffused increased interstitial markings Elevated d-dimer on admission of 1.95 CTA is negative for PE. Showed central lobar emphysema with chronic interstitial lung disease as well as a nonspecific 7 mm nodular infiltrate in R apex Bibasilar crackles on physical exam, orthopnea per history Duonebs q6hr, albuterol q2hr PRN Likely needs COPD w/u as outpt to include PFTs (3) UTI (urinary tract infection) ICD Codes: N39.0 - Urinary tract infection, site not specified Status: Acute Plan: UA showing pyuria, mod LE, occult blood Will start Rocephin 1g IV daily on 07/10 Urine culture showed Group D enterococcus on 07/10 but now with no growth after 48hours Blood cultures pending (4) Chest pain ICD Codes: R07.9 - Chest pain, unspecified Status: Resolved Plan: Troponins 0.12, 0.19, 0.20 on trending. EKGs showing LVH, poor R wave progression, no ST changes Echocardiogram as above Heparin gtt to continue SHAYAN as above Heart cath planned for 07/11 On admission: Patient presented with palpitations, both sharp and dull chest pain that is non- radiating Present both at rest and after exertion EKG on admission showing LVH, no ST changes Troponin 0.1 on admission Concern for NSTEMI vs PE vs unstable angina Trend troponin, EKG, CKMB q4hr Hemodynamically stable on admission aside from elevated BP CTA negative for PE Received 1 dose ASA 325mg in ED Started Heparin drip with bolus Started Nitro drip for pain, BP Started Vasotec PRN for HTN UDS + for cocaine so discontinuing IV Labetalol - patient had not received a dose prior to discontinuing Patient asked about cocaine use specifically and he denied, counseled extensively on 07/10 on need for cessation (5) Hypertension ICD Codes: I10 - Essential (primary) hypertension Status: Chronic Plan: Patient has a known diagnosis of hypertension Takes an oral medication that he cannot cause with that is Spoke with his pharmacy and they stated he was on Lisinopril 20mg daily but has not had this filled in 1 year. Blood pressures are elevated up to 176/112 on admission Has been as elevated as 200/103 WNL overnight Carvedilol 6.25mg PO BID Will start Vasotec 1.25 mg IV push every 6 hours as needed for systolic blood pressure over 180 or diastolic blood pressure over 100 Hydralazine 50mg PO q8hr PRN for SBP > 160, DBP > 90 Clonidine 0.1mg po q6hr if significantly elevated BP despite other PRNs (6) Diabetes ICD Codes: E11.9 - Type 2 diabetes mellitus without complications Status: Chronic Plan: Patient with a known history of diabetes Spoke with his pharmacy and they stated he has not but has not had this filled in 1 year. Random glucose of 96 on admission Contacting pharmacy to determine what medicines he takes Continue low-dose sliding scale (7) Gout ICD Codes: M10.9 - Gout, unspecified Status: Chronic Plan: Known history of gout Will monitor symptoms (8) Pulmonary nodule ICD Codes: R91.1 - Solitary pulmonary nodule Status: Acute Plan: Concern for chronic lung process as patient has significant smoking history, has digital clubbing and weight loss Note 7mm nodule on CT scan, will discuss with patient to f/u in 2-3 months (9) Substance abuse ICD Codes: F19.10 - Other psychoactive substance abuse, uncomplicated Status: Chronic Plan: UDS + cocaine, tobacco abuse Counseled will be provided on cessation and substance resources (10) FEN Status: Acute Plan: F: gave 500mL bolus on morning of 07/11 prior to heart cath E: WNL, will replete as needed N: NPO for heart cath - will give diet after procedure Heparin drip Problem Qualifiers (1) Hypertension: Qualified Codes: I10 - Essential (primary) hypertension (2) Diabetes: Qualified Codes: E11.9 - Type 2 diabetes mellitus without complications; Z79.4 - long term acute care registered nurse (current) use of insulin Rony Painter MD R1 Jul 11, 2017 09:00
[2017-07-11] MEDS ORDERED: MIDAZOLAM HCL 2 MG/2 ML VIAL ONE (11:12)
[2017-07-11] MEDS ORDERED: HEPARIN-NS/PF FLUSH BAG 2,000 ML IV FLUSH ONE (11:12)
--- NOTE | 2017-07-11 12:12 | CATHPROC ---
[employer] HIS Report Study Information Study Number Scheduled Start Study Start [id number] 07/11/2017 Jul 11 2017 10:53AM Referring Institution Admit Source Facility Department 1 Emergency department [facility] - Laboratory Chemical Assistant Physician and Clinical Staff Initial Clarence Galeas Cotton Picking Machine Operator Faye Andersen,RN Cotton Picking Machine Operator Killian Neal,RN Recorder Osbaldo JOINER, Miguel Angel Fountain RCIS(BS) Procedures Performed Procedure Location (Site) Vessel Name Coronary Angiograms LCA Left Coronary Coronary Angiograms RCA Right Coronary Equipment Time Lithographic Photographer Description Size Mfg Part Number Used/Scraped ARROW INTERNATIONAL CATHETER, FR.7 BALLOON [id number] 11:00 FR 7 Used INC. WEDGE PRESSURE *[id number] TRANSDUCER, [email or web address].ly [id number] 11:00 ADAN PEREZ * Used W/STOCKCOCK *[id number] *[id number] 11:00 Voddler INDUSTRIES PACK, CCL CUSTOM * Used *[id number] 11:00 Voddler PACER PEN, SKIN DUAL W/ RULER * Used *[id number] 11:49 MEDTRONIC JL 4.0 DXTERITY CATHETER FR 5 Used *[id number] 11:00 [employer] MEDICAL WIRE, 3MMJ .035 180CM 180CM Used *[id number] 11:00 NAMIC MANIFOLD, 2 PORT * Used *[id number] 11:00 NAMIC MANIFOLD, 4 PORT * Used *[id number] 11:00 NYCOMED OMNIPAQUE, 350 MG, 150ML 150ML [id number] Used [id number] 11:00 TRAIL MEDICAL BLANKET,WARM AIR CCL * Used *[id number] 11:00 TERUMO MEDICAL SHEATH, FR5 TERUMO (10CM) FR 5 Used *[id number] 11:00 TERUMO MEDICAL SHEATH, FR7 TERUMO (10CM) FR 7 Used *[id number] Equipment Model, Serial, Lot Number and Expiration Data Description Model Number Serial Number Lot Number Expiration Date JL 4.0 DXTERITY CATHETER [id number] 05-01-2020 History: Current Medications Medication Dosage/Unit Route Frequency Last Date/Time Taken Beta Anthony History: Allergies Allergy Reaction NKDA History: Risk Factors Family History of Hypertension Dyslipidemia Previous [place] Previous Heart Failure Premature CAD Yes No No No No Prior Valve Prior PCI Prior CABG Surgery No No No Cerebrovascular Peripheral Artery Chronic Lung On Dialysis Diabetes Diabetes Therapy Disease Disease Disease No No No No Yes Oral History: Stress Tests Stress or Imaging Studies Performed No History: Other Current Smoker Method Packs a Day Years Used Pack Years Yes Cigarettes 1 20 20 Labs Hgb (g/dl) Hct (%) WBC (l/cumm) Platelets (thousands) 11.60-17.00 35.00-51.00 4.00-11.00 150.00-450.00 11.3 34 4.3 125 Glucose (mg/dl) BUN (mg/dl) Creatinine (mg/dl) BUN:Creatinine (1:x) 74.00-106.00 7.00-18.00 0.50-1.30 10.00-20.00 99 28 1.3 21.5 Na (meq/l) K (meq/l) 136.00-145.00 3.50-5.10 143 3.4 INR (PTT:PT) 0.90-1.10 1.1 Troponin I (ng/ml) CPK-MB (ng/ML) 0.02-0.05 0.50-3.60 0.2 Not Drawn Medication Medication Total Dose (Bolus/Oral) Medication Total Dosage/Unit 1% XYLOCAINE 20 mL FENTANYL 50 mcg VERSED 2 mg Medications (Bolus/Oral) Medication Time Given Dosage/Unit Administered By Reason VERSED 07/11/2017 11:27:35 AM 2 mg Faye Andersen 2 mg VERSED given in lab by Faye Andersen, RHYS via Peripheral IV. Ordered by Clarence Villegas. 1% XYLOCAINE 07/11/2017 11:28:44 AM 20 mL Clarence Villegas 20 mL 1% XYLOCAINE given in lab by Clarence Villegas via Subcutaneous. Ordered by Clarence Villegas. FENTANYL 07/11/2017 11:28:45 AM 50 mcg Faye Andersen 50 mcg FENTANYL given in lab by Faye Andersen, RHYS via Peripheral IV. Ordered by Clarence Villegas. Medication (Drip) Medication Time Given Dosage/Unit Concentration/Unit Diluent (ml) Solution NITROGLYCERIN DRIP 07/11/2017 11:13:30 AM 30 mcg/min 50 mg 250 D5W Patient arrived on 30 mcg/min NITROGLYCERIN DRIP via Peripheral IV. Pump/Drip Flow = 9 ml/hr using D5 W with a concentration of 50 mg in 250 ml. NITROGLYCERIN DRIP 07/11/2017 12:03:08 PM 30 mcg/min 50 mg 250 D5W Patient arrived on 30 mcg/min NITROGLYCERIN DRIP via Peripheral IV. Pump/Drip Flow = 9 ml/hr using D5 W with a concentration of 50 mg in 250 ml. Discontinued at 07/11/2017 12:03. Initial Case Assessment Cardiovascular HR NIBP Chest Pain 69 153/106 7 Edema Present Skin color Skin None Normal Warm Dry Circulatory - Right Pulses Posterior Tibial Femoral 3 3 Scale (0,1,2,3,4,d) Circulatory - Left Pulses Posterior Tibial Femoral 3 3 Scale (0,1,2,3,4,d) Neurological State Oriented to time-place- Alert Moves all extremities person Respiration - General Respiration Rate SpO2 (%) (B/min) 16 96 Final Case Assessment Cardiovascular HR NIBP Chest Pain 62 134/84 0 Edema Present Skin color Skin None Normal Warm Dry Circulatory - Right Pulses Posterior Tibial Femoral 3 3 Scale (0,1,2,3,4,d) Circulatory - Left Pulses Posterior Tibial Femoral 3 3 Scale (0,1,2,3,4,d) Neurological State Oriented to time-place- Drowsy Moves all extremities person Respiration - General Respiration Rate SpO2 (%) (B/min) 16 94 Chronological Log Time Study Chronological Log 11:05:13 Patient arrived via Bed. 11:05:19 Patient Name, D.O.B, / Armband Verified By R.N. 11:07:26 Consent signed by the physician and the patient and verified by the Laboratory Chemical Assistant staff. 11:07:30 Pre-op and post- op instructions given; patient acknowledges understanding of instructions . 11:07:38 Patient has been NPO for More than 6Hrs. Vitals capture started with the following parameters, Patient=Adult, Interval=5 min, Initial P qthbbvq=112 mmHg, 11:12:34 Deflation Rate=5 mmHg, Cuff placed on Unknown 11:12:39 Reference ECG taken 11:12:50 Skin Breakdown- none reported by patient 11:13:09 HR=55 bpm, RNHR=383/106 mmhg, SpO2=97.0 %, Resp=31 B/min, Pain=7, Antionette=10, Messina=2 11:13:27 Alyssa Prominences Protected Patient arrived on 30 mcg/min NITROGLYCERIN DRIP via Peripheral IV. Pump/Drip Flow = 9 ml/hr u sing D5W with a 11:13:30 concentration of 50 mg in 250 ml. 11:14:33 History and physical on the chart or being dictated. Assessment: Initial Case, HR=69 BPM, BLMX=245/106 mmhg, Chest Pain=7, Edema=None, Color=Normal , Skin = Warm, Dry Right Pulses: Post Tib=3, Femoral=3 11:14:37 Left Pulses: Post Tib=3, Femoral=3 Neurological: State=Alert, Ox3, HERNANDEZ Respiration: Resp=16 B/min, SpO2=96 % 11:15:20 Bilateral groins prepped with 2% chlorhexidine, and draped after a 3 minute waiting time. 11:15:45 A # 20 IV was noted in the Forearm (right). Grade = 0 11:17:31 MD paged 11:18:41 HR=72 bpm, BGIQ=635/93 mmhg, SpO2=95.0 %, Resp=26 B/min, Pain=7, Messina=2 11:19:55 MD responded 11:23:09 HR=66 bpm, RVDM=938/97 mmhg, SpO2=95.0 %, Resp=8 B/min, Pain=7, Messina=2 11:23:41 Pressure channel 1 zeroed. 11:24:17 MD arrived. Time Out. Correct patient, correct procedure, correct physician, power injector loaded, or not loaded with contrast with 11:26:28 surgical team present. Time Out Concurred by MD and individual staff in procedure. 11:27:35 2 mg VERSED given in lab by Faye Andersen, RN via Peripheral IV. Ordered by Clarence Villegas . 11:28:12 HR=68 bpm, WXJA=925/86 mmhg, SpO2=95.0 %, Resp=14 B/min, Pain=7, Messina=2 11:28:41 Case Start 11:28:44 20 mL 1% XYLOCAINE given in lab by Clarence Villegas via Subcutaneous. Ordered by Dea Villegas en. 11:28:45 50 mcg FENTANYL given in lab by Faye Andersen, RN via Peripheral IV. Ordered by Minor, Brett phen. 11:31:29 Access site was Right Femoral Vein. 11:31:49 A SHEATH, FR7 TERUMO (10CM) FR 7 was advanced into the Fem Vein (right) using the Modified Seldinger technique. 11:33:13 HR=69 bpm, WLVG=259/82 mmhg, SpO2=91.0 %, Resp=23 B/min, Pain=0, Messina=2 11:34:32 Access site was Right Femoral Artery. 11:34:41 A SHEATH, FR5 TERUMO (10CM) FR 5 was advanced into the Fem Art (right) using the Modified S eldinger technique. 11:34:58 A CATHETER, FR.7 BALLOON WEDGE PRESSURE FR 7 was inserted via Fem Vein (right) Recorded Pressure: RA, HR=63, Condition=Condition 1 11:35:22 (Right Atrium) RA 9/7/5 Recorded Pressure: RV, HR=64, Condition=Condition 1 11:36:00 (Right Ventricle) RV 51/4/6 11:38:12 HR=66 bpm, JTDX=481/77 mmhg, SpO2=92 %, Resp=14 B/min, Pain=0, Messina=2 Recorded Pressure: MPA, HR=67, Condition=Condition 1 11:39:04 (Main Pulmonary Artery) MPA /19/32 Recorded Pressure: PCW, HR=69, Condition=Condition 1 11:39:42 (Pulmonary Capillary Wedge) PCW / 11:40:17 Saturation: Site=PA (Pulmonary Artery) , O2=52.1 %, Hgb=11.3 gm/dl, Condition=Condition 1. Used in calculation. 11:41:10 Saturation: Site=Ao (Aorta) , O2=89 %, Hgb=11.3 gm/dl, Condition=Condition 1. Used in calcu lation. 11:42:21 A JR 4.0 INFINITI CATHETER FR 5 was advanced over a wire. 11:42:54 Sloan Dar Catheter Removed 11:43:11 HR=65 bpm, TXUL=940/73 mmhg, SpO2=97.0 %, Resp=15 B/min, Pain=7, Messina=2 Recorded Pressure: LV, HR=71, Condition=Condition 1 11:44:08 (Left Ventricle) LV 83/6/13 Recorded Pressure: LV, Ao, HR=69, Condition=Condition 1 11:44:16 (Left Ventricle) LV 125/8/12, (Aorta) Ao 122/63/97 11:48:12 HR=72 bpm, OUZT=611/73 mmhg, SpO2=92.0 %, Resp=18 B/min, Pain=0, Messina=2 11:48:45 The RCA was injected and visualized at various angles. OMNIPAQUE, 350 MG, 150ML 150ML used . After removing the current catheter a JL 4.0 DXTERITY CATHETER FR 5 was advanced over a WIRE, 3 MMJ .035 180CM 11:49:02 180CM. 11:50:54 The LCA was injected and visualized at various angles. OMNIPAQUE, 350 MG, 150ML 150ML used . 11:52:11 Catheter was removed 11:52:34 Case End 11:53:46 HR=69 bpm, QSFH=977/80 mmhg, SpO2=95.0 %, Resp=18 B/min, Pain=0, Messina=2 11:55:45 Arterial Sheath removed; pressure applied to access site. 11:58:12 HR=61 bpm, UBKS=020/81 mmhg, SpO2=93.0 %, Resp=13 B/min, Pain=0, Messina=2 12:01:45 Venous Sheath removed; pressure applied to access site. 12:02:26 ACT (Normal Range 90-180) = 106 Patient arrived on 30 mcg/min NITROGLYCERIN DRIP via Peripheral IV. Pump/Drip Flow = 9 ml/hr u sing D5W with a 12:03:08 concentration of 50 mg in 250 ml. Discontinued at 07/11/2017 12:03. 12:03:11 HR=66 bpm, HDCI=601/90 mmhg, SpO2=99.0 %, Resp=15 B/min, Pain=0, Messina=2 12:04:43 CPCU called. Spoke to Matthew 12:06:03 A Left and Right Heart Cath was performed. 12:08:13 HR=66 bpm, LSZD=983/84 mmhg, SpO2=95.0 %, Resp=12 B/min, Pain=0, Messina=2 12:08:50 Sterile dressing applied to site 12:08:53 No case complications noted. 12:09:17 Vitals capture stopped. Assessment: Final Case, HR=62 BPM, ZJQG=767/84 mmhg, Chest Pain=0, Edema=None, Color=Normal, S kin = Warm, Dry Right Pulses: Post Tib=3, Femoral=3 12:09:23 Left Pulses: Post Tib=3, Femoral=3 Neurological: State=Drowsy, Ox3, HERNANDEZ Respiration: Resp=16 B/min, SpO2=94 % 12:11:16 Bedside Report will be given. 12:11:22 Patient moved to stretcher End Study - Contrast Media Used In Study Contrast Total Opened (mL) Total Used (mL) Total Wasted (mL) Omnipaque 40 40 0 End Study - Maximum Contrast Load Max Contrast Load (mL) 263.5 End Study - Radiation Exposure Fluoro Time (minutes) 9.3 End Study - Patient Disposition Complications Transferred To Interventional Outcome No Telemetry Bed No attempt made
[2017-07-11] MEDS ORDERED: IOHEXOL 350 MG/ML 50 ML BTL (for Cath Lab) OTHER ONE (12:20)
--- NOTE | 2017-07-11 12:26 | ECHRPT ---
Indication: endocarditis CONCLUSIONS Normal left ventricular size. Wall thickness is normal. The left ventricular systolic function is normal with an estimated ejection fraction in the range of 55-60%. The left atrial size is mildly dilated. Moderate thickening of the mitral valve leaflets. Severe mitral valve regurgitation. The mitral valve regurgitation jet is directed anteriorly. There is a partially ruptured chordae tendon a of the posterior mitral valve leaflet with eccentric severe mitral regurgitation and cowanda effect. The mitral valve is myxomatous. Mild thickening of the tricuspid valve leaflets. 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 BP: 131 / 65 HR: Rhythm: MEASUREMENTS (Male / Female) Normal Values Technical Quality: DOPPLER TR Peak Velocity 269.0 cm/s Pulmonary Artery Systolic 38.9 mmHg TR Peak Gradient 28.9 mmHg Right Ventricular Systoli 38.9 mmHg Right Atrial Pressure 10.0 mmHg Medications Complications Proc. Components The patient was brought to the diagnostic imaging area in a fasting state after o btaining an informed consent. The patient was premedicated with IV Versed and IV Fentanyl. The transport technician ior pharynx was sprayed with Cetacaine spray and the patient was administered viscous Xylocaine 2 %. The SHAYAN probe was passed into the posterior pharynx , mid-esophagus, distal esophagus, and gastric fundus. SHAYAN was performed at multiple levels. The patient tolerated the procedure well and there were no complications. The patient was transferred to the floor in satisfactory condition.. FINDINGS LEFT VENTRICLE Normal left ventricular size. Wall thickness is normal. The left ventricular systolic function is normal with an estimated ejection fraction in the range of 55-60%. RIGHT VENTRICLE Normal right ventricular size and systolic function. LEFT ATRIUM The left atrial size is mildly dilated. RIGHT ATRIUM The right atrial size is normal. ATRIAL APPENDAGES Normal left atrial appendage size with no evidence of thrombus formation. ATRIAL SEPTUM Normal atrial septal thickness without atrial level shunting by limited color doppler interrogation. AORTA The aortic root and proximal ascending aorta are normal in size on limited imaging. MITRAL VALVE Moderate thickening of the mitral valve leaflets. Severe mitral valve regurgitation. The mitral valve regurgitation jet is directed anteriorly. There is a partially ruptured chordae tendon a of the posterior mitral valve leaflet with eccentric severe mitral regurgitation and cowanda effect. The mitral valve is myxomatous. AORTIC VALVE Trileaflet aortic valve. No aortic valve stenosis or regurgitation. TRICUSPID VALVE Mild thickening of the tricuspid valve leaflets. 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 VESSELS The inferior vena cava is normal in size. PULMONARY VALVE No pulmonary valve regurgitation or stenosis. PERICADIUM No pericardial effusion. Clarence Villegas MD, FACC (Electronically Signed) Final Date:11 July 2017 12:26
--- NOTE | 2017-07-11 12:51 | MA ---
cc: Clarence Villegas MD DATE: 07/11/2017 INDICATIONS: Severe mitral regurgitation excellent. PROCEDURE PERFORMED: 1. Fluoroscopy with interpretation. 2. Coronary angiography. 3. Left heart catheterization. 4. Right heart catheterization. METHOD: The risks, benefits and alternatives were discussed with the patient. The patient understood and consented to the procedure. The patient was brought into the catheterization lab, placed on the catheterization table. The right groin was prepped and draped in sterile fashion. The right groin was anesthetized with 2% lidocaine. Right common femoral artery was cannulated and a 5-Afghan 11 cm sheath was placed without difficulty. Right femoral vein was accessed and a 7-Afghan sheath was placed without difficulty. RIGHT HEART CATHETERIZATION: A 7-Afghan [place]-Dar pulmonary arterial catheter was advanced through the right femoral venous sheath to the level of the right atrium under fluoroscopic guidance. Hemodynamics were performed in all chambers while advanced to the pulmonary capillary wedge position. Hemodynamics were as follows: 1. Right atrial pressure measured at 9 mmHg. 2. Right ventricular pressure measured at 51/4 mmHg. 3. Pulmonary arterial pressure measured at 52/19 mmHg. 4. Pulmonary capillary wedge pressure measured at 19 mmHg. 5. Cardiac output was 4.2 liters per minute. 6. Cardiac index 2.2 liters per minute per meter squared. LEFT HEART CATHETERIZATION: Intraventricular hemodynamic shows 110/15 mmHg. CORONARY ANGIOGRAPHY: 1. Left main coronary artery is angiographically normal. 2. Left anterior descending coronary angiographically normal. Large diagonal branch angiographically normal. 3. Left circumflex has mild irregularities and a very small ramus intermedius branch has an ostial plaque but the first obtuse marginal branch is widely patent. 4. The right coronary artery is a large, dominant vessel giving rise to a posterior descending branch. CONCLUSIONS: 1. Fairly angiographically normal coronary arteries. 2. Severe mitral regurgitation. 3. Mild to moderate pulmonary hypertension. 4. Mildly reduced cardiac output and index. 5. Normal left-sided filling pressure. PLAN: Cardiothoracic surgery will be consulted for consideration of mitral valve repair versus replacement. We can discontinue nitroglycerin and heparin drips. Clarence Villegas MD ERICA/SB , 12:02 PM , 12:49 PM
[2017-07-11] MEDS ORDERED: BACITRACIN OINT 0.9 GM PKT TOP ONE (13:30)
[2017-07-11] MEDS ORDERED: SODIUM CHLOR 0.9% 250 ML INJ 250 ML IV PRN (13:30)
[2017-07-11] MEDS ORDERED: METOCLOPRAMIDE HCL 10 MG/2 ML VIAL IV PUSH PRN (13:30)
[2017-07-11] MEDS ORDERED: ATROPINE SULFATE 1 MG/ML VIAL IV PUSH PRN (13:30)
[2017-07-11] MEDS ORDERED: LORazepam 2 MG/ML VIAL IV PUSH PRN (13:30)
[2017-07-11] MEDS ORDERED: LIDOCAINE HCL 1% 50 ML VIAL INFIL PRN (13:30)
[2017-07-11] MEDS ORDERED: MISC INFORMATION XX ONE (14:00)
[2017-07-11] MEDS ORDERED: clonazePAM 0.5 MG TAB PO PRN (16:15)
--- NOTE | 2017-07-11 18:10 | MB ---
cc: Vianca Horner MD DATE: 07/11/2017 HISTORY OF PRESENT ILLNESS: A 56-year-old male with history of hypertension, diabetes and gout, who has not been taking his medication in the last 3 months, apparently has been having problems with his physician and followup, progressive shortness of breath for the past 1 week, also some lower extremity edema, presented to the emergency department and was given some nitro without much relief. His D-dimer is mildly elevated. He had a CTA of the chest which ruled out a pulmonary embolus; however, he does have some significant emphysema. He also has a small 7-mm nodule in the right apex that needs to be followed up in 3 months. He underwent echocardiogram showing an ejection fraction of 50-55%, severe mitral valve regurgitation; mitral valve regurgitation jet is directed anteriorly. 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 He then underwent cardiac catheterization today, which showed fairly angiographically normal coronaries, mildly reduced cardiac output of 4.2 with an index of 2.2. We were consulted to evaluate for mitral valve repair versus replacement. PAST MEDICAL HISTORY: Hypertension, diabetes, gout. SOCIAL HISTORY: He admits to smoking cocaine and also some marijuana, which was positive in his tox screen. He denies ever using any IV drugs. He apparently is on disability. He smokes half a pack of cigarettes for the last 20 years. He takes care of his mother and disabled brother. ALLERGIES: HE HAS NO KNOWN ALLERGIES. MEDICATIONS: He is currently on no medications. REVIEW OF SYSTEMS: A 10-point system was performed and is negative other than what is in the HPI. PHYSICAL EXAMINATION: VITAL SIGNS: Blood pressure 140/80, heart rate of 88, afebrile, room air sat 97. GENERAL: The patient is awake, alert, no acute distress. HEENT: Head is normocephalic, atraumatic. Pupils equal and reactive. Oral mucosa pink, moist. NECK: Supple. Very mild elevation of the jugular veins. No lymphadenopathy. LUNGS: Clear to auscultation. No wheezes, rales or rhonchi. ABDOMEN: Soft, nontender. CARDIOVASCULAR: Heart sounds S1, S2, with a grade III/ systolic murmur. EXTREMITIES: Reveal no cyanosis, clubbing, or edema. LABORATORY DATA: Shows hemoglobin 11, hematocrit of 34, white cell count of 4.3, platelet count of 125. Sodium 143, potassium 3.4, BUN of 28 with a creatinine of 1.25. Troponin 0.20. Urinalysis did show some moderate bacteria. He is currently on some Rocephin and the tox screen as above. Micro showed negative blood cultures. Urine culture showed Enterococcus. IMAGING STUDIES: The CT chest, again, no pulmonary emboli, positive for central lobar emphysema and the 7-mm nodule infiltrate right apex that needs followup. ASSESSMENT AND PLAN: This is a 56-year-old male with severe mitral regurgitation, also some moderate tricuspid regurgitation, nonobstructive coronary disease, ejection fraction of 50%. cardiac films and echo will be evaluated by Dr. Vianca Horner, evaluation for mitral valve replacement versus repair. Further studies to include a carotid ultrasound and some lab work and pulmonary function testing. Dictated by ANDREW Gauthier MD ADRIAN Patel/BERTA , 05:09 PM , 06:08 PM
[2017-07-11] MEDS: TAMSULOSIN HCL 0.4 MG CAP PO SCH (20:47)
[2017-07-12] VITALS (30 sets, daily range): BP systolic 140–172; BP diastolic 87–104; PULSE 65–85; RESP 18–20; TEMP 97.7–98.1; O2SAT 94–98
[2017-07-12] MEDS ORDERED: ZOLPIDEM TARTRATE 5 MG TAB PO ONE (00:30)
[2017-07-12] MEDS: RESP: ALBUTEROL 2.5 MG/IPRATROPIUM 0.5 MG NEB (SCH) INH ×4 (04:00→20:37)
[2017-07-12] MEDS: INSULIN ASPART SUPPLEMENTAL SCALE SQ SCH ×4 (08:00→20:59)
--- NOTE | 2017-07-12 08:15 | PD.CARD.PN ---
Subjective Subjective Remarks Chest pain and shortness of breath unchanged. Patient still complaining of intermittent palpitations, and episodes of PVC and a single 4 beat run of NSVT seen on telemetry overnight. Patient inquiring about surgery date, discussed with RN, likely early next week, patient informed and all questions answered. Objective Medications Current Medications Medications (Trade) Dose Ordered Sig/Jakob Route Start Time Stop Time Status Last Admin (NS Flush) 2 ml UNSCH PRN IV FLUSH 07/09/17 10:00 (NS Flush) 2 ml BID IV FLUSH 07/09/17 21:00 07/11/17 20:49 (Nitrostat Sl) 0.4 mg Q5M PRN SL 07/09/17 10:30 (Morphine Inj) 2 mg Q30M PRN IV PUSH 07/09/17 10:30 (Zofran Inj) 4 mg Q6H PRN IV PUSH 07/09/17 10:30 07/10/17 00:32 (D50w (Vial) Inj) 50 ml UNSCH PRN IV PUSH 07/09/17 11:15 (Glucagon Inj) 1 mg UNSCH PRN OTHER 07/09/17 11:15 (NovoLOG SUPPLEMENTAL SCALE) 1 ACHS SLIDING SCALE SQ 07/09/17 12:00 07/10/17 20:57 (Vasotec Inj) 1.25 mg Q6H PRN IV PUSH 07/09/17 11:15 07/09/17 18:55 (Duoneb Neb) 1 ampule Q6HR NEB INH 07/09/17 12:30 07/11/17 20:02 (Albuterol Neb) 2.5 mg Q2HR NEB PRN INH 07/09/17 11:45 07/11/17 08:08 (Coreg) 6.25 mg Q12HR PO 07/09/17 12:45 07/11/17 20:47 (Apresoline) 50 mg Q8HR PRN PO 07/09/17 12:45 07/09/17 17:55 (Catapres) 0.1 mg Q6H PRN PO 07/09/17 20:00 (Flomax) 0.4 mg HS PO 07/09/17 22:00 07/11/17 20:47 Ceftriaxone Sodium 1000 mg/ Sodium Chloride 100 ml @ 200 mls/hr Q24H IV 07/10/17 08:00 07/11/17 08:28 (Ativan Inj) 0.5 mg UNSCH PRN IV PUSH 07/11/17 13:30 07/12/17 13:29 (Atropine Inj) 0.5 mg UNSCH PRN IV PUSH 07/11/17 13:30 Sodium Chloride 250 ml @ 500 mls/hr ONCE PRN IV 07/11/17 13:30 07/12/17 13:29 (Reglan Inj) 10 mg Q4H PRN IV PUSH 07/11/17 13:30 (Xylocaine 1% Inj (50 ml)) 10 ml UNSCH PRN INFIL 07/11/17 13:30 07/12/17 13:29 (KlonoPIN) 0.5 mg BID PRN PO 07/11/17 16:15 07/11/17 17:28 Vital Signs / I&O Vital Signs Date Time Temp Pulse Resp B/P (MAP) Pulse Ox O2 Delivery O2 Flow Rate FiO2 07/12/17 07:46 97 Room Air 07/12/17 07:00 68 07/12/17 06:45 70 07/12/17 05:08 80 07/12/17 04:38 79 07/12/17 03:50 Room Air 07/12/17 03:27 83 07/12/17 02:15 78 07/12/17 01:50 80 07/12/17 00:06 84 07/11/17 23:55 98.2 76 19 147/76 (99) 94 07/11/17 23:55 66 07/11/17 23:55 Room Air 07/11/17 22:14 79 07/11/17 21:00 74 07/11/17 20:40 86 07/11/17 20:02 97 07/11/17 19:40 Room Air 07/11/17 19:40 97.9 77 20 135/92 (106) 98 07/11/17 19:40 76 07/11/17 18:00 78 07/11/17 17:00 70 07/11/17 16:00 88 07/11/17 15:42 97 Room Air 07/11/17 15:41 97.8 69 18 145/88 (107) 97 07/11/17 15:00 81 07/11/17 14:00 64 3/22/18 13:00 75 07/11/17 12:48 96 Room Air 07/11/17 12:46 97.9 74 18 136/85 (102) 96 07/11/17 12:00 63 07/11/17 11:00 81 07/11/17 10:00 66 07/11/17 09:00 78 I/O 07/11/17 07/11/17 07/11/17 07/12/17 07/12/17 07/12/17 07:00 15:00 23:00 07:00 15:00 23:00 Intake Total 438.1 ml 720 ml 480 ml Output Total 350 ml 700 ml 100 ml Balance 88.1 ml 20 ml 380 ml Intake Oral 240 ml 720 ml 480 ml IV Total 198.1 ml Output Urine Total 350 ml 700 ml 100 ml # Voids 2 # Bowel Movements 0 Physical Exam GENERAL: Well-developed well-nourished. In no acute distress. NECK: No carotid bruits. No JVD. CARDIOVASCULAR: Regular rate and rhythm. Loud systolic murmur best appreciated at the apex. RESPIRATORY: No accessory muscle use. Clear to auscultation. Breath sounds equal bilaterally. MUSCULOSKELETAL: No clubbing or cyanosis. No edema. NEUROLOGICAL: Awake and alert. Normal speech. Imaging Last Impressions CT Angiography 07/09/17 0952 Signed Impressions: Service Date/Time: Sunday, July 09, 2017 10:31 - CONCLUSION: 1. No evidence of pulmonary embolism. 2. 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 3. Nonspecific 7 mm nodular infiltrate right apex. Recommend followup noncontrast CT thorax in 3 months after appropriate medical therapy. Cecil Soriano MD Chest X-Ray 07/09/17 0000 Signed Impressions: Service Date/Time: Sunday, July 09, 2017 07:26 - CONCLUSION: 1. Diffuse increased interstitial markings which are nonspecific and could represent acute pneumonitis, mild pulmonary vascular congestion or chronic interstitial disease. Clinical correlation is recommended. 2. Cardiomegaly. Ankush Parrish MD Assessment and Plan Assessment and Plan 56-year-old male with a past medical history of hypertension and noncompliance who presented with progressive shortness of breath and intermittent chest pain. Patient was found to have a mild systolic murmur and echocardiogram was ordered. Echocardiogram shows severe mitral regurgitation with normal ejection fraction. Severe mitral valve regurgitation: Patient presented with chest pain/shortness of breath. SHAYAN 07/10 with severe mitral valve regurgitation with myxomatous/ partially flail posterior leaflet. Performed cardiac catheterization 07/11 with no significant coronary disease and severe MR. CT surgery consulted, reportedly plan is for surgery early next week. Supportive care for now. Ventricular arrhythmia: Episodes of ventricular bigeminy and a single 4 beat run of nonsustained ventricular tachycardia. Will increase carvedilol to 12.5 mg. Pipo Gomez Jul 12, 2017 08:15
[2017-07-12] MEDS: cefTRIAXone INJ 1,000 MG in SODIUM CHLORIDE 0.9% INJ 100 ML IV SCH (08:55)
[2017-07-12] MEDS: CARVEDILOL 12.5 MG TAB PO SCH ×2 (08:55→20:59)
[2017-07-12] MEDS: SODIUM CHLORIDE 0.9% FLUSH 10 ML FLUSH IV FLUSH SCH ×3 (08:56→20:59)
--- NOTE | 2017-07-12 10:03 | HHI.FPPN ---
Subjective Remarks Patient was seen and examined this morning. He has had PFTs and states he feels shortness of breath with exertion. He denies chest pain, abdominal pain, nausea , vomiting. Objective Vitals Vital Signs Date Time Temp Pulse Resp B/P (MAP) Pulse Ox O2 Delivery O2 Flow Rate FiO2 07/12/17 09:00 65 07/12/17 08:20 94 21 07/12/17 08:00 71 07/12/17 07:46 97 Room Air 07/12/17 07:42 98.0 67 18 172/87 (115) 97 07/12/17 07:00 68 07/12/17 06:45 70 07/12/17 05:08 80 07/12/17 04:38 79 07/12/17 03:50 Room Air 07/12/17 03:27 83 07/12/17 02:15 78 07/12/17 01:50 80 07/12/17 00:06 84 07/11/17 23:55 98.2 76 19 147/76 (99) 94 07/11/17 23:55 66 07/11/17 23:55 Room Air 07/11/17 22:14 79 07/11/17 21:00 74 07/11/17 20:40 86 07/11/17 20:02 97 07/11/17 19:40 Room Air 07/11/17 19:40 97.9 77 20 135/92 (106) 98 07/11/17 19:40 76 07/11/17 18:00 78 07/11/17 17:00 70 07/11/17 16:00 88 07/11/17 15:42 97 Room Air 07/11/17 15:41 97.8 69 18 145/88 (107) 97 07/11/17 15:00 81 07/11/17 14:00 64 07/11/17 13:00 75 07/11/17 12:48 96 Room Air 07/11/17 12:46 97.9 74 18 136/85 (102) 96 07/11/17 12:00 63 07/11/17 11:00 81 07/11/17 10:00 66 I/O 07/11/17 07/11/17 07/11/17 07/12/17 07/12/17 07/12/17 07:00 15:00 23:00 07:00 15:00 23:00 Intake Total 438.1 ml 720 ml 480 ml Output Total 350 ml 700 ml 100 ml Balance 88.1 ml 20 ml 380 ml Intake Oral 240 ml 720 ml 480 ml IV Total 198.1 ml Output Urine Total 350 ml 700 ml 100 ml # Voids 2 # Bowel Movements 0 Result Diagram: 07/11/17 0208 07/11/[address] Angiography 07/09/17 0952 Signed Impressions: Service Date/Time: Sunday, July 09, 2017 10:31 - CONCLUSION: 1. No evidence of pulmonary embolism. 2. 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 3. Nonspecific 7 mm nodular infiltrate right apex. Recommend followup noncontrast CT thorax in 3 months after appropriate medical therapy. Cecil Soriano MD Chest X-Ray 07/09/17 0000 Signed Impressions: Service Date/Time: Sunday, July 09, 2017 07:26 - CONCLUSION: 1. Diffuse increased interstitial markings which are nonspecific and could represent acute pneumonitis, mild pulmonary vascular congestion or chronic interstitial disease. Clinical correlation is recommended. 2. Cardiomegaly. Ankush Parrish MD Objective Remarks GEN: Well-developed, well-nourished patient. No acute distress. SKIN: No rashes, ecchymoses or lesions. Warm and dry. CV: Regular rate and rhythm. Harsh holosystolic murmur again appreciated. LUNGS: Clear to auscultation bilaterally. Normal respiratory effort. No wheezes , rales, rhonchi. GI: Soft, nondistended. Bowel sounds present. EXT: No edema. No calf tenderness. NEURO/PSYCH: Awake, alert. Appropriate insight and judgment. Normal speech. Procedures Transthoracic Echocardiogram Report 07/09/2017: Normal left ventricular size. Mild concentric left ventricular hypertrophy. The left ventricular systolic function is low normal with an estimated ejection fraction in the range of 50- 55%. The left atrial size is mildly dilated. Severe mitral valve regurgitation. The mitral valve regurgitation jet is directed anteriorly. Moderate thickening of the mitral valve leaflets. Cannot rule out mobile echodensity on posterior mitral valve leaflet on the inflow side of the mitral valve apparatus. Posterior mitral valve leaflet prolapse. The estimated pulmonary arterial pressure is 54 mmHg. There is mild tricuspid valve regurgitation. Mild pulmonary valve regurgitation. Transesophageal Echocardiogram Report 07/10/17: Normal left ventricular size. Wall thickness is normal. The left ventricular systolic function is normal with an estimated ejection fraction in the range of 55-60%. The left atrial size is mildly dilated. Moderate thickening of the mitral valve leaflets. Severe mitral valve regurgitation. The mitral valve regurgitation jet is directed anteriorly. There is a partially ruptured chordae tendon a of the posterior mitral valve leaflet with eccentric severe mitral regurgitation and cowanda effect. The mitral valve is myxomatous. Mild thickening of the tricuspid valve leaflets. 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 Cardiac Catheterization 07/11: RIGHT HEART CATHETERIZATION: A 7-Georgian [place]-Dar pulmonary arterial catheter was advanced through the right femoral venous sheath to the level of the right atrium under fluoroscopic guidance. Hemodynamics were performed in all chambers while advanced to the pulmonary capillary wedge position. Hemodynamics were as follows: 1. Right atrial pressure measured at 9 mmHg. 2. Right ventricular pressure measured at 51/4 mmHg. 3. Pulmonary arterial pressure measured at 52/19 mmHg. 4. Pulmonary capillary wedge pressure measured at 19 mmHg. 5. Cardiac output was 4.2 liters per minute. 6. Cardiac index 2.2 liters per minute per meter squared. LEFT HEART CATHETERIZATION: Intraventricular hemodynamic shows 110/15 mmHg. CORONARY ANGIOGRAPHY: 1. Left main coronary artery is angiographically normal. 2. Left anterior descending coronary angiographically normal. Large diagonal branch angiographically normal. 3. Left circumflex has mild irregularities and a very small ramus intermedius branch has an ostial plaque but the first obtuse marginal branch is widely patent. 4. The right coronary artery is a large, dominant vessel giving rise to a posterior descending branch. CONCLUSIONS: 1. Fairly angiographically normal coronary arteries. 2. Severe mitral regurgitation. 3. Mild to moderate pulmonary hypertension. 4. Mildly reduced cardiac output and index. 5. Normal left-sided filling pressure. Medications and IVs Inpatient Medications Albuterol Sulfate (Albuterol Neb) 2.5 mg Q2HR NEB PRN INH SHORTNESS OF BREATH Last administered on 07/11/17at 08:08; Start 07/09/17 at 11:45 Albuterol/ Ipratropium (Duoneb Neb) 1 ampule Q6HR NEB INH Last administered on 07/12/17at 08:19; Start 07/09/17 at 12:30 Aspirin (Aspirin) 325 mg ONCE ONCE PO Last administered on 07/09/17at 09:31; Start 07/09/17 at 09:30; Stop 07/09/17 at 09:31; Status DC Atropine Sulfate (Atropine Inj) 0.5 mg UNSCH PRN IV PUSH VAGAL REPONSE; Start 07/11/17 at 13:30 Bacitracin (Bacitracin Oint Packet) 0.9 gm ONCE ONCE TOP ; Start 07/11/17 at 13 :30; Stop 07/11/17 at 13:31; Status DC Carvedilol (Coreg) 12.5 mg Q12HR PO Last administered on 07/12/17at 08:55; Start 07/12/17 at 09:00 Ceftriaxone Sodium 1000 mg/ Sodium Chloride 100 ml @ 200 mls/hr Q24H IV Last administered on 07/12/17at 08:55; Start 07/10/17 at 08:00 Clonazepam (KlonoPIN) 0.5 mg BID PRN PO anxiety Last administered on 07/11/17at 17:28; Start 07/11/17 at 16:15 Clonidine (Catapres) 0.1 mg Q6H PRN PO SEE LABEL COMMENTS; Start 07/09/17 at 20 :00 Dextrose (D50w (Vial) Inj) 50 ml UNSCH PRN IV PUSH HYPOGLYCEMIA-SEE COMMENTS; Start 07/09/17 at 11:15 Enalaprilat (Vasotec Inj) 1.25 mg Q6H PRN IV PUSH SBP> OR = 180, DBP> OR = 100 Last administered on 07/09/17at 18:55; Start 07/09/17 at 11:15 Glucagon (Glucagon Inj) 1 mg UNSCH PRN OTHER HYPOGLYCEMIA-SEE COMMENTS; Start 07/09/17 at 11:15 Heparin Sodium (Porcine) (Heparin Inj) 2,500 units UNSCH PRN IV PUSH APTT 25 TO 39; Start 07/09/17 at 17:45; Stop 07/11/17 at 12:03; Status DC Heparin Sodium/ Dextrose 250 ml @ 8 mls/hr TITRATE PRN IV Coagulation Management Last administered on 07/10/17at 23:59; Start 07/09/17 at 13:00; Stop 07/11/17 at 12:03; Status DC Hydralazine HCl (Apresoline Inj) 10 mg Q6H PRN IV PUSH SEE LABEL COMMENTS; Start 07/09/17 at 11:45; Stop 07/09/17 at 12:04; Status DC Hydralazine HCl (Apresoline) 50 mg Q8HR PRN PO SBP>160, DBP>90 Last administered on 07/09/17at 17:55; Start 07/09/17 at 12:45 Insulin Aspart (NovoLOG SUPPLEMENTAL SCALE) 1 ACHS SLIDING SCALE SQ Last administered on 07/10/17at 20:57; Start 07/09/17 at 12:00 Labetalol HCl (Trandate Inj) 10 mg Q6H PRN IV PUSH SEE LABEL COMMENTS; Start at 12:15; Stop 07/09/17 at 12:54; Status DC Lidocaine HCl (Xylocaine 1% Inj (50 ml)) 10 ml UNSCH PRN INFIL SHEATH REMOVAL; Start 07/11/17 at 13:30; Stop 07/12/17 at 13:29 Lorazepam (Ativan Inj) 0.5 mg UNSCH PRN IV PUSH ANXIETY; Start 07/11/17 at 13: 30; Stop 07/12/17 at 13:29 Metoclopramide HCl (Reglan Inj) 10 mg Q4H PRN IV PUSH NAUSEA; Start 07/11/17 at 13:30 Miscellaneous Information 1 ONCE ONCE XX ; Start 07/11/17 at 14:00; Stop at 14:01; Status DC Morphine Sulfate (Morphine Inj) 2 mg Q30M PRN IV PUSH CHEST PAIN; Start at 10:30 Nitroglycerin (Nitroglycerin 2% Oint) 1 inch ONCE ONCE TOPICAL Last administered on 07/09/17at 09:32; Start 07/09/17 at 09:30; Stop 07/09/17 at 09:31 ; Status DC Nitroglycerin (Nitrostat Sl) 0.4 mg Q5M PRN SL CHEST PAIN; Start 07/09/17 at 10 :30 Nitroglycerin/ Dextrose 250 ml @ 1.5 mls/hr TITRATE PRN IV Keep SBP > 90 mmHg Last administered on 07/10/17at 22:55; Start 07/09/17 at 13:00; Stop 07/11/17 at 12:03; Status DC Ondansetron HCl (Zofran Inj) 4 mg Q6H PRN IV PUSH NAUSEA OR VOMITING Last administered on 07/10/17at 00:32; Start 07/09/17 at 10:30 Sodium Chloride 250 ml @ 500 mls/hr ONCE PRN IV VAGAL REPONSE; Start 07/11/17 at 13:30; Stop 07/12/17 at 13:29 Sodium Chloride (NS Flush) 2 ml BID IV FLUSH Last administered on 07/12/17at 08: 56; Start 07/09/17 at 21:00 Tamsulosin HCl (Flomax) 0.4 mg HS PO Last administered on 07/11/17at 20:47; Start 07/09/17 at 22:00 Zolpidem Tartrate (Ambien) 5 mg ONCE ONCE PO Last administered on 07/12/17at 00 :48; Start 07/12/17 at 00:30; Stop 07/12/17 at 00:31; Status DC Urinary Catheter: No Vascular Central Line Catheter: No A/P Assessment and Plan 56 yo M with PMH of DM, HTN presenting to ED with 5 day history of progressive SOB, palpitations and chest discomfort. Has SOB at baseline. Found to have elevated troponin of 0.1, EKG with no ST changes on admission. Elevated D - Dimer. Admitted for PE workup, ACS workup. PE workup negative. Echo showing severe MR. SHAYAN showing severe mitral regurg and myxomatous/partially flail posterior leaflet on 07/10. CT surgery consulted. Heart cath planned for 07/11 per cardiology Discharge Planning Anticipate total inpatient stay of 5-7 days if surgical intervention occurs. Now pending evaluation by CT surgery for possible surgical intervention of mitral valve dysfunction. Unclear disposition at this time, possibly to home versus rehab DW Dr. Israel, SDW Dr. Painter Problem List: (1) Severe mitral regurgitation by prior echocardiogram ICD Codes: I34.0 - Nonrheumatic mitral (valve) insufficiency Status: Acute Plan: Patient noted to have echocardiogram 07/09 showing severe MR, low normal EF 50-55%, possible vegetation, elevated pulmonary pressures. SHAYAN showed severe mitral regurgitation and myxomatous/partially flail posterior leaflet on 07/10 , CT surgery consulted. Heart cath showing fairly normal coronary arteries, severe MR, mild to moderate pulmonary hypertension, mildly reduced cardiac output with normal left-sided filling pressures. Continue telemetry, monitor for symptoms and offer support via oxygen if needed. Oxygen sats are normal at this time on room air (2) SOB (shortness of breath) ICD Codes: R06.02 - Shortness of breath Status: Acute Plan: Improving. Will continue to monitor. Possibly related to severe MR, COPD , pulm HTN PFTs performed at bedside on 07/12, will follow up results On room air satting greater than 95%, goal saturation greater than 93% On admission: Patient reported 5 day history of worsening shortness of breath, palpitation and chest discomfort Has shortness of breath at baseline, acutely worsened on day of admission Chest x-ray on admission showed diffused increased interstitial markings Elevated d-dimer on admission of 1.95 CTA is negative for PE. Showed central lobar emphysema with chronic interstitial lung disease as well as a nonspecific 7 mm nodular infiltrate in R apex Bibasilar crackles on physical exam, orthopnea per history improved Duonebs q6hr, albuterol q2hr PRN (3) UTI (urinary tract infection) ICD Codes: N39.0 - Urinary tract infection, site not specified Status: Acute Plan: UA showing pyuria, mod LE, occult blood Rocephin 1g IV daily (07/10 - ). Anticipate total 10 day course of antibiotics given patient is male Urine culture showed Group D enterococcus on 07/10 but now with no growth after 48hours Blood cultures showing no growth (4) Hypertension ICD Codes: I10 - Essential (primary) hypertension Status: Chronic Plan: Patient has a known diagnosis of hypertension Takes an oral medication that he cannot recall Spoke with his pharmacy and they stated he was on Lisinopril 20mg daily but has not had this filled in 1 year. Blood pressures are elevated up to 176/112 on admission Has been as elevated as 200/103 WNL overnight, elevated blood pressure this morning, isolated value, will monitor. Continue carvedilol 12.5mg PO BID Vasotec 1.25 mg IV push every 6 hours as needed for systolic blood pressure over 180 or diastolic blood pressure over 100 Hydralazine 50mg PO q8hr PRN for SBP > 160, DBP > 90 Clonidine 0.1mg po q6hr if significantly elevated BP despite other PRNs (5) Chest pain ICD Codes: R07.9 - Chest pain, unspecified Status: Resolved Plan: Chest pain resolved Troponins 0.12, 0.19, 0.20 on trending. EKGs showing LVH, poor R wave progression, no ST changes Echocardiogram as above Heparin gtt discontinued after cardiac catheterization on 07/11 SHAYAN as above Heart cath results noted above On admission: Patient presented with palpitations, both sharp and dull chest pain that is non- radiating Present both at rest and after exertion EKG on admission showing LVH, no ST changes Troponin 0.1 on admission Concern for NSTEMI vs PE vs unstable angina Trend troponin, EKG, CKMB q4hr Hemodynamically stable on admission aside from elevated BP CTA negative for PE Received 1 dose ASA 325mg in ED Started Heparin drip with bolus Started Nitro drip for pain, BP Started Vasotec PRN for HTN UDS + for cocaine so discontinuing IV Labetalol - patient had not received a dose prior to discontinuing Patient asked about cocaine use specifically and he denied, counseled extensively on 07/10 on need for cessation (6) Diabetes ICD Codes: E11.9 - Type 2 diabetes mellitus without complications Status: Chronic Plan: Patient with a known history of diabetes Spoke with his pharmacy and they stated he has not but has not had this filled in 1 year. Random glucose of 96 on admission Continue low-dose sliding scale (7) Anemia ICD Codes: D64.9 - Anemia, unspecified Status: Acute Plan: Admission hemoglobin 13.2, now 11.3 with hematocrit 34. Likely delusional and monitor at this time. Platelets are notably 125 (8) Gout ICD Codes: M10.9 - Gout, unspecified Status: Chronic Plan: Known history of gout Will monitor symptoms (9) Pulmonary nodule ICD Codes: R91.1 - Solitary pulmonary nodule Status: Acute Plan: Concern for chronic lung process as patient has significant smoking history, has digital clubbing and weight loss Note 7mm nodule on CT scan, will discuss with patient to f/u in 2-3 months (10) Substance abuse ICD Codes: F19.10 - Other psychoactive substance abuse, uncomplicated Status: Chronic Plan: UDS + cocaine, tobacco abuse Counseled on the risk of lifethreatening addiction, intoxication, and withdrawal if he continues using substances (11) FEN Status: Acute Plan: F: Gave 500mL bolus on morning of 07/11 prior to heart cath, PO hydration E: WNL, will replete as needed N: Heart healthy diet, NPO as needed for procedures PPX: will hold for now given possible procedures, SCDs, and platelet count less than 150 Problem Qualifiers (1) Hypertension: Qualified Codes: I10 - Essential (primary) hypertension (2) Diabetes: Qualified Codes: E11.9 - Type 2 diabetes mellitus without complications; 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
[2017-07-12] MEDS ORDERED: POTASSIUM CHLORIDE 10 MEQ CONTROLLED RELEASE TAB PO ONE (10:15)
--- NOTE | 2017-07-12 11:55 | RADRPT ---
EXAM DATE/TIME: 07/12/2017 09:27 [facility] COMPARISON: No previous studies available for comparison. INDICATIONS : Occlusion. MEDICAL HISTORY : Hypertension. Diabetes mellitus type 2. SURGICAL HISTORY : Cardiac catheterizaion. ENCOUNTER: Initial ACUITY: 1 day PAIN SCORE: 0/10 LOCATION: Bilateral neck PEAK SYSTOLIC VELOCITIES (cm/sec): ICA/CCA RATIO: Right: 1.6 Left: 1.3 ICA: Right: 88 Left: 100 CCA: Right: 55 Left: 76 ECA: Right: 54 Left: 90 VERTEBRAL: Right: 113 antegrade Left: 21 antegrade Elevated flow velocities and ICA/CCA ratios have been found to correlate with increased degrees of vessel stenosis, calculated as percentage of diameter relative to a normal segment of distal ICA/CCA FINDINGS: RIGHT CAROTID: No significant stenosis is visualized. The waveforms are within normal limits. LEFT CAROTID: No significant stenosis is visualized. The waveforms are within normal limits. VERTEBRAL ARTERIES: Antegrade flow is seen in both vertebral arteries. MISCELLANEOUS: None. CONCLUSION: 1. Minimal carotid plaque without significant flow-limiting stenosis. 2. Antegrade vertebral artery flow bilaterally. Yann Camacho MD on July 12, 2017 at 11:52 Board Certified Radiologist. This report was verified electronically.
[2017-07-12] MEDS: RESP: ALBUTEROL 2.5 MG/3 ML NEB (PRN) INH (12:20)
--- NOTE | 2017-07-12 16:43 | PD.CAR.PN ---
CVT Progress Note Subjective/Hospital Course: A 56-year-old male with history of hypertension, diabetes and gout, who has not been taking his medication in the last 3 months, apparently has been having problems with his physician and followup, progressive shortness of breath for the past 1 week, also some lower extremity edema, presented to the emergency department and was given some nitro without much relief. His D-dimer is mildly elevated. He had a CTA of the chest which ruled out a pulmonary embolus; however, he does have some significant emphysema. He also has a small 7-mm nodule in the right apex that needs to be followed up in 3 months. He underwent echocardiogram showing an ejection fraction of 50-55%, severe mitral valve regurgitation; mitral valve regurgitation jet is directed anteriorly. 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 He then underwent cardiac catheterization today, which showed fairly angiographically normal coronaries, mildly reduced cardiac output of 4.2 with an index of 2.2. We were consulted to evaluate for mitral valve repair versus replacement. PAST MEDICAL HISTORY: Hypertension, diabetes, gout. 07/12 c/o of dypnea / 02 sat 95% on room air now scheduled for surgery on Saturday Objective: GENERAL: A&O x 3 SKIN: Warm and dry. HEAD: Normocephalic. EYES: No scleral icterus. No injection or drainage. NECK: Supple, trachea midline. No JVD or lymphadenopathy. CARDIOVASCULAR: Regular rate and rhythm, 3/6 sm gallops, or rubs. RESPIRATORY: Breath sounds equal bilaterally. No accessory muscle use. GASTROINTESTINAL: Abdomen soft, non-tender, nondistended. MUSCULOSKELETAL: No cyanosis, or edema. BACK: Nontender without obvious deformity. No CVA tenderness. Vital Signs Date Time Temp Pulse Resp B/P (MAP) Pulse Ox O2 Delivery O2 Flow Rate FiO2 07/12/17 16:00 77 07/12/17 15:29 96 Room Air 07/12/17 15:27 98.0 74 18 152/94 (113) 96 07/12/17 15:00 76 07/12/17 14:00 79 07/12/17 13:00 73 07/12/17 12:00 75 07/12/17 11:17 97 Room Air 07/12/17 11:16 98.1 73 18 140/96 (111) 97 07/12/17 11:00 83 07/12/17 10:00 73 07/12/17 09:00 65 07/12/17 08:20 94 21 07/12/17 08:00 71 07/12/17 07:46 97 Room Air 07/12/17 07:42 98.0 67 18 172/87 (115) 97 07/12/17 07:00 68 07/12/17 06:45 70 07/12/17 05:08 80 07/12/17 04:38 79 07/12/17 03:50 Room Air 07/12/17 03:27 83 07/12/17 02:15 78 07/12/17 01:50 80 07/12/17 00:06 84 07/11/17 23:55 98.2 76 19 147/76 (99) 94 07/11/17 23:55 66 07/11/17 23:55 Room Air 07/11/17 22:14 79 07/11/17 21:00 74 07/11/17 20:40 86 07/11/17 20:02 97 07/11/17 19:40 Room Air 07/11/17 19:40 97.9 77 20 135/92 (106) 98 07/11/17 19:40 76 07/11/17 18:00 78 07/11/17 17:00 70 Result Diagram: 07/11/17 02007/11/17207 Telemetry: NSR (1) Diabetes (2) Severe mitral regurgitation by prior echocardiogram Plan: for surgery on Saturday (3) Gout Problem Qualifiers (1) Diabetes: Qualified Codes: E11.9 - Type 2 diabetes mellitus without complications; 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
[2017-07-12] MEDS ORDERED: INSULIN REGULAR (IV INFUSION) 100 UNITS in SODIUM CHLORIDE 0.9% INJ 99 ML IV PRN (16:45)
[2017-07-12] MEDS ORDERED: ceFAZolin 2 GM PREMIX 50 ML IV SCH (16:45)
[2017-07-12] MEDS ORDERED: CEFAZOLIN INJ 500 MG in SODIUM CHLORIDE 0.9% IRR BTL 500 ML IRRIGATION SCH (16:45)
[2017-07-12] MEDS ORDERED: DEXTROSE 50% IN WATER 50 ML VIAL(D50) IV PUSH PRN (16:45)
[2017-07-12] MEDS ORDERED: SODIUM CHLORIDE 0.9% FLUSH 10 ML FLUSH IV FLUSH PRN (16:45)
[2017-07-12] MEDS ORDERED: CHLORHEXIDINE GLUCONATE 4% SOLN 120 ML BTL TOPICAL SCH (16:45)
[2017-07-12] MEDS: TAMSULOSIN HCL 0.4 MG CAP PO SCH (20:59)
[2017-07-12] MEDS: ZOLPIDEM TARTRATE 5 MG TAB PO PRN (20:59)
[2017-07-12] MEDS: hydrALAZINE HCL 50 MG TAB PO PRN (23:58)
[2017-07-13] VITALS (26 sets, daily range): BP systolic 140–160; BP diastolic 85–98; PULSE 62–87; RESP 16–20; TEMP 97.5–98; O2SAT 97–100
[2017-07-13] MEDS: RESP: ALBUTEROL 2.5 MG/IPRATROPIUM 0.5 MG NEB (SCH) INH ×2 (02:43→10:38)
[2017-07-13 06:19] LABS: AUTOMATED NEUTROPHIL # 2.6 TH/MM3 (1.8-7.7); EOSINOPHIL # 0.2 TH/MM3 (0-0.4); EOSINOPHIL % 4.4 % (0.0-4.0); HEMATOCRIT 39.9 % (39.0-51.0); HEMOGLOBIN 13.3 GM/DL (13.0-17.0); LYMPH % 25.7 % (9.0-44.0); LYMPHOCYTE # 1.1 TH/MM3 (1.0-4.8); MEAN CELL VOLUME 87.5 FL (80.0-100.0); MEAN CORPUSCULAR HEMOGLOBIN 29.3 PG (27.0-34.0); MEAN CORPUSCULAR HGB CONC 33.5 % (32.0-36.0); MEAN PLATELET VOLUME 9.4 FL (7.0-11.0); MONOCYTE # 0.4 TH/MM3 (0-0.9); NEUT % 58.9 % (16.0-70.0); PLATELET COUNT 121 TH/MM3 (150-450); RED BLOOD COUNT 4.56 MIL/MM3 (4.50-5.90); RED CELL DISTRIBUTION WIDTH 14.8 % (11.6-17.2); WHITE BLOOD COUNT 4.3 TH/MM3 (4.0-11.0)
[2017-07-13 06:42] LABS: BICARBONATE 21.9 MEQ/L (21.0-32.0); CALCIUM 8.2 MG/DL (8.5-10.1); CREATININE 1.05 MG/DL (0.60-1.30)
[2017-07-13] MEDS: INSULIN ASPART SUPPLEMENTAL SCALE SQ SCH ×4 (08:00→21:00)
[2017-07-13] MEDS: SODIUM CHLORIDE 0.9% FLUSH 10 ML FLUSH IV FLUSH SCH ×4 (08:50→21:30)
[2017-07-13] MEDS: cefTRIAXone INJ 1,000 MG in SODIUM CHLORIDE 0.9% INJ 100 ML IV SCH (08:50)
[2017-07-13] MEDS: CARVEDILOL 12.5 MG TAB PO SCH ×2 (08:50→21:29)
--- NOTE | 2017-07-13 08:56 | HHI.FPPN ---
Subjective Remarks No acute events overnight. Patient states his chest discomfort/SOB is unchanged. Denies N/V. No complaints. When asked he stated that he would prefer his mother speak for him if he were unable to speak for himself. Objective Vitals Vital Signs Date Time Temp Pulse Resp B/P (MAP) Pulse Ox O2 Delivery O2 Flow Rate FiO2 07/13/17 06:31 80 07/13/17 05:49 65 07/13/17 04:10 70 07/13/17 03:38 98.0 73 20 153/98 (116) 100 07/13/17 03:38 Room Air 07/13/17 03:37 68 07/13/17 02:00 73 07/13/17 01:13 84 07/13/17 00:00 87 07/12/17 23:20 71 07/12/17 23:20 98.1 79 20 169/104 (125) 94 07/12/17 23:20 Room Air 07/12/17 22:40 72 07/12/17 21:40 85 07/12/17 20:37 98 07/12/17 20:30 80 07/12/17 19:40 Room Air 07/12/17 19:40 77 07/12/17 19:40 97.7 73 19 158/97 (117) 97 07/12/17 18:00 83 07/12/17 17:00 76 07/12/17 16:00 77 07/12/17 15:29 96 Room Air 07/12/17 15:27 98.0 74 18 152/94 (113) 96 07/12/17 15:00 76 07/12/17 14:00 79 07/12/17 13:00 73 07/12/17 12:00 75 07/12/17 11:17 97 Room Air 07/12/17 11:16 98.1 73 18 140/96 (111) 97 07/12/17 11:00 83 07/12/17 10:00 73 07/12/17 09:00 65 I/O 07/12/17 07/12/17 07/12/17 07/13/17 07/13/17 07/13/17 07:00 15:00 23:00 07:00 15:00 23:00 Intake Total 480 ml 720 ml 480 ml Output Total 100 ml 900 ml 100 ml Balance 380 ml -180 ml 380 ml Intake Oral 480 ml 720 ml 480 ml Output Urine Total 100 ml 900 ml 100 ml # Voids 2 3 Result Diagram: 07/13/1751907/13/17 05 Objective Remarks GEN: Well-developed, well-nourished patient. No acute distress. SKIN: No rashes, ecchymoses or lesions. Warm and dry. CV: Regular rate and rhythm. Harsh holosystolic murmur again appreciated - unchanged. LUNGS: Clear to auscultation bilaterally. Normal respiratory effort. No wheezes , rales, rhonchi. GI: Soft, nondistended. Bowel sounds present. EXT: No edema. No calf tenderness. NEURO/PSYCH: Awake, alert. Appropriate insight and judgment. Normal speech. Procedures Transthoracic Echocardiogram Report 07/09/2017: Normal left ventricular size. Mild concentric left ventricular hypertrophy. The left ventricular systolic function is low normal with an estimated ejection fraction in the range of 50- 55%. The left atrial size is mildly dilated. Severe mitral valve regurgitation. The mitral valve regurgitation jet is directed anteriorly. Moderate thickening of the mitral valve leaflets. Cannot rule out mobile echodensity on posterior mitral valve leaflet on the inflow side of the mitral valve apparatus. Posterior mitral valve leaflet prolapse. The estimated pulmonary arterial pressure is 54 mmHg. There is mild tricuspid valve regurgitation. Mild pulmonary valve regurgitation. Transesophageal Echocardiogram Report 07/10/17: Normal left ventricular size. Wall thickness is normal. The left ventricular systolic function is normal with an estimated ejection fraction in the range of 55-60%. The left atrial size is mildly dilated. Moderate thickening of the mitral valve leaflets. Severe mitral valve regurgitation. The mitral valve regurgitation jet is directed anteriorly. There is a partially ruptured chordae tendon a of the posterior mitral valve leaflet with eccentric severe mitral regurgitation and cowanda effect. The mitral valve is myxomatous. Mild thickening of the tricuspid valve leaflets. 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 Cardiac Catheterization 07/11: RIGHT HEART CATHETERIZATION: A 7-[place] Ensign-Dar pulmonary arterial catheter was advanced through the right femoral venous sheath to the level of the right atrium under fluoroscopic guidance. Hemodynamics were performed in all chambers while advanced to the pulmonary capillary wedge position. Hemodynamics were as follows: 1. Right atrial pressure measured at 9 mmHg. 2. Right ventricular pressure measured at 51/4 mmHg. 3. Pulmonary arterial pressure measured at 52/19 mmHg. 4. Pulmonary capillary wedge pressure measured at 19 mmHg. 5. Cardiac output was 4.2 liters per minute. 6. Cardiac index 2.2 liters per minute per meter squared. LEFT HEART CATHETERIZATION: Intraventricular hemodynamic shows 110/15 mmHg. CORONARY ANGIOGRAPHY: 1. Left main coronary artery is angiographically normal. 2. Left anterior descending coronary angiographically normal. Large diagonal branch angiographically normal. 3. Left circumflex has mild irregularities and a very small ramus intermedius branch has an ostial plaque but the first obtuse marginal branch is widely patent. 4. The right coronary artery is a large, dominant vessel giving rise to a posterior descending branch. CONCLUSIONS: 1. Fairly angiographically normal coronary arteries. 2. Severe mitral regurgitation. 3. Mild to moderate pulmonary hypertension. 4. Mildly reduced cardiac output and index. 5. Normal left-sided filling pressure. A/P Assessment and Plan 56 yo M with PMH of DM, HTN presenting to ED with 5 day history of progressive SOB, palpitations and chest discomfort. Has SOB at baseline. Found to have elevated troponin of 0.1, EKG with no ST changes on admission. Elevated D - Dimer. Admitted for PE workup, ACS workup. PE workup negative. Echo showing severe MR. SHAYAN showing severe mitral regurg and myxomatous/partially flail posterior leaflet on 07/10. Heart cath planned for 07/[address] surgery consulted and planning for mitral valve repair vs replacement on 07/15 Discharge Planning Anticipate total inpatient stay of 5-7 days if surgical intervention occurs. CT surgery planning for surgical intervention of mitral valve dysfunction on . Unclear disposition at this time, possibly to home versus rehab DW Dr. Israel, SDW Dr. Rodriguez Problem List: (1) Severe mitral regurgitation by prior echocardiogram ICD Codes: I34.0 - Nonrheumatic mitral (valve) insufficiency Status: Acute Plan: Patient noted to have echocardiogram 07/09 showing severe MR, low normal EF 50-55%, possible vegetation, elevated pulmonary pressures. SHAYAN showed severe mitral regurgitation and myxomatous/partially flail posterior leaflet on 07/10 , CT surgery consulted. Heart cath showing fairly normal coronary arteries, severe MR, mild to moderate pulmonary hypertension, mildly reduced cardiac output with normal left-sided filling pressures. Continue telemetry, monitor for symptoms and offer support via oxygen if needed. Oxygen sats are normal at this time on room air CT surgery planning for mitral valve repair vs replacement on 07/15 (2) SOB (shortness of breath) ICD Codes: R06.02 - Shortness of breath Status: Acute Plan: Stable. Will continue to monitor. Possibly related to severe MR, COPD, pulm HTN PFTs performed at bedside on 07/12, will follow up results On room air satting greater than 95%, goal saturation greater than 93% On admission: Patient reported 5 day history of worsening shortness of breath, palpitation and chest discomfort Has shortness of breath at baseline, acutely worsened on day of admission Chest x-ray on admission showed diffused increased interstitial markings Elevated d-dimer on admission of 1.95 CTA is negative for PE. Showed central lobar emphysema with chronic interstitial lung disease as well as a nonspecific 7 mm nodular infiltrate in R apex Bibasilar crackles on physical exam, orthopnea per history improved Duonebs q6hr, albuterol q2hr PRN (3) UTI (urinary tract infection) ICD Codes: N39.0 - Urinary tract infection, site not specified Status: Acute Plan: UA showing pyuria, mod LE, occult blood Rocephin 1g IV daily (07/10 - ). Anticipate total 10 day course of antibiotics given patient is male Urine culture showed Group D enterococcus on 07/10 but now with no growth after 48hours Blood cultures showing no growth (4) Hypertension ICD Codes: I10 - Essential (primary) hypertension Status: Chronic Plan: Patient has a known diagnosis of hypertension Takes an oral medication that he cannot recall Spoke with his pharmacy and they stated he was on Lisinopril 20mg daily but has not had this filled in 1 year. Blood pressures are elevated up to 176/112 on admission Has been as elevated as 200/103 Elevated blood pressure overnight, will monitor. Continue carvedilol 12.5mg PO BID Vasotec 1.25 mg IV push every 6 hours as needed for systolic blood pressure over 180 or diastolic blood pressure over 100 Hydralazine 50mg PO q8hr PRN for SBP > 160, DBP > 90 Clonidine 0.1mg po q6hr if significantly elevated BP despite other PRNs (5) Chest pain ICD Codes: R07.9 - Chest pain, unspecified Status: Resolved Plan: Chest pain resolved Troponins 0.12, 0.19, 0.20 on trending. EKGs showing LVH, poor R wave progression, no ST changes Echocardiogram as above Heparin gtt discontinued after cardiac catheterization on 07/11 SHAYAN as above Heart cath results noted above On admission: Patient presented with palpitations, both sharp and dull chest pain that is non- radiating Present both at rest and after exertion EKG on admission showing LVH, no ST changes Troponin 0.1 on admission Concern for NSTEMI vs PE vs unstable angina Trend troponin, EKG, CKMB q4hr Hemodynamically stable on admission aside from elevated BP CTA negative for PE Received 1 dose ASA 325mg in ED Started Heparin drip with bolus Started Nitro drip for pain, BP Started Vasotec PRN for HTN UDS + for cocaine so discontinuing IV Labetalol - patient had not received a dose prior to discontinuing Patient asked about cocaine use specifically and he denied, counseled extensively on 07/10 on need for cessation (6) Diabetes ICD Codes: E11.9 - Type 2 diabetes mellitus without complications Status: Chronic Plan: Patient with a known history of diabetes Spoke with his pharmacy and they stated he has not but has not had this filled in 1 year. Random glucose of 96 on admission Continue low-dose sliding scale (7) Gout ICD Codes: M10.9 - Gout, unspecified Status: Chronic Plan: Known history of gout Will monitor symptoms (8) Pulmonary nodule ICD Codes: R91.1 - Solitary pulmonary nodule Status: Acute Plan: Concern for chronic lung process as patient has significant smoking history, has digital clubbing and weight loss Note 7mm nodule on CT scan, will discuss with patient to f/u in 2-3 months (9) Substance abuse ICD Codes: F19.10 - Other psychoactive substance abuse, uncomplicated Status: Chronic Plan: UDS + cocaine, tobacco abuse Counseled on the risk of lifethreatening addiction, intoxication, and withdrawal if he continues using substances (10) FEN Status: Acute Plan: F: Gave 500mL bolus on morning of 07/11 prior to heart cath, PO hydration E: WNL, will replete as needed N: Heart healthy diet, NPO as needed for procedures PPX: will hold for now given possible procedures, SCDs, Problem Qualifiers (1) Hypertension: Qualified Codes: I10 - Essential (primary) hypertension (2) Diabetes: Qualified Codes: E11.9 - Type 2 diabetes mellitus without complications; Z79.4 - alf (current) use of insulin Rony Painter MD R1 Jul 13, 2017 08:56
[2017-07-13] MEDS: RESP: ALBUTEROL 2.5 MG/3 ML NEB (PRN) INH (18:45)
[2017-07-13] MEDS: TAMSULOSIN HCL 0.4 MG CAP PO SCH (21:29)
[2017-07-13] MEDS: ZOLPIDEM TARTRATE 5 MG TAB PO PRN (21:30)
[2017-07-14] VITALS (25 sets, daily range): BP systolic 132–154; BP diastolic 72–91; PULSE 60–92; RESP 16–20; TEMP 97.5–98.2; O2SAT 94–99
[2017-07-14] MEDS: RESP: ALBUTEROL 2.5 MG/3 ML NEB (PRN) INH ×3 (06:32→13:59)
[2017-07-14 07:49] LABS: INTERNATIONAL NORMALIZED RATIO 1.1 RATIO; PROTHROMBIN TIME - PATIENT 11.4 SEC (9.8-11.6)
[2017-07-14] MEDS: INSULIN ASPART SUPPLEMENTAL SCALE SQ SCH ×4 (08:00→20:41)
[2017-07-14] MEDS: ONDANSETRON HCL 4 MG/2 ML VIAL IV PUSH PRN ×2 (08:42→19:52)
[2017-07-14] MEDS: SODIUM CHLORIDE 0.9% FLUSH 10 ML FLUSH IV FLUSH SCH ×4 (09:00→20:36)
[2017-07-14] MEDS: cefTRIAXone INJ 1,000 MG in SODIUM CHLORIDE 0.9% INJ 100 ML IV SCH (10:05)
[2017-07-14] MEDS: CARVEDILOL 12.5 MG TAB PO SCH ×2 (10:05→20:36)
--- NOTE | 2017-07-14 10:54 | PD.CAR.PN ---
CVT Progress Note Subjective/Hospital Course: A 56-year-old male with history of hypertension, diabetes and gout, who has not been taking his medication in the last 3 months, apparently has been having problems with his physician and followup, progressive shortness of breath for the past 1 week, also some lower extremity edema, presented to the emergency department and was given some nitro without much relief. His D-dimer is mildly elevated. He had a CTA of the chest which ruled out a pulmonary embolus; however, he does have some significant emphysema. He also has a small 7-mm nodule in the right apex that needs to be followed up in 3 months. He underwent echocardiogram showing an ejection fraction of 50-55%, severe mitral valve regurgitation; mitral valve regurgitation jet is directed anteriorly. 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 He then underwent cardiac catheterization today, which showed fairly angiographically normal coronaries, mildly reduced cardiac output of 4.2 with an index of 2.2. We were consulted to evaluate for mitral valve repair versus replacement. PAST MEDICAL HISTORY: Hypertension, diabetes, gout. 07/12 c/o of dypnea / 02 sat 95% on room air now scheduled for surgery on Saturday07/14/17 For MV repair or replacement tomorrow Objective: Vital Signs Date Time Temp Pulse Resp B/P (MAP) Pulse Ox O2 Delivery O2 Flow Rate FiO2 07/14/17 08:45 96 Nasal Cannula 2.00 07/14/17 08:00 97.5 60 20 152/79 (103) 95 07/14/17 08:00 98 Nasal Cannula 2.00 07/14/17 06:00 77 07/14/17 05:14 60 07/14/17 04:00 69 07/14/17 03:00 66 07/14/17 03:00 97.7 66 146/80 (102) 98 07/14/17 02:00 68 07/14/17 01:00 72 07/14/17 00:00 76 07/13/17 23:00 68 07/13/17 23:00 98.0 76 140/85 (103) 97 07/13/17 22:00 74 07/13/17 21:00 74 07/13/17 20:03 98 07/13/17 20:00 86 07/13/17 19:00 72 07/13/17 19:00 97.8 67 160/97 (118) 97 07/13/17 18:00 84 07/13/17 17:00 70 07/13/17 16:00 68 07/13/17 15:02 97.7 62 16 140/92 (108) 98 07/13/17 15:02 98 Room Air 07/13/17 15:02 69 07/13/17 14:01 72 07/13/17 13:03 75 07/13/17 12:22 71 07/13/17 11:42 66 07/13/17 11:42 100 Room Air 07/13/17 11:42 98.0 68 16 140/86 (104) 100 Labs: Laboratory Tests Test 07/14/17 06:37 Prothrombin Time 11.4 SEC (9.8-11.6) Prothromb Time International Ratio 1.1 RATIO Result Diagram: 07/13/17 0520 07/13/17 0520 Imaging: Last Impressions Carotid Artery Ultrasound 07/12/17 0000 Signed Impressions: Service Date/Time: Wednesday, July 12, 2017 09:27 - CONCLUSION: 1. Minimal carotid plaque without significant flow-limiting stenosis. 2. Antegrade vertebral artery flow bilaterally. Yann Camacho MD CT Angiography 07/09/17 0952 Signed Impressions: Service Date/Time: Sunday, July 09, 2017 10:31 - CONCLUSION: 1. No evidence of pulmonary embolism. 2. 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 3. Nonspecific 7 mm nodular infiltrate right apex. Recommend followup noncontrast CT thorax in 3 months after appropriate medical therapy. Cecil Soriano MD Chest X-Ray 07/09/17 0000 Signed Impressions: Service Date/Time: Sunday, July 09, 2017 07:26 - CONCLUSION: 1. Diffuse increased interstitial markings which are nonspecific and could represent acute pneumonitis, mild pulmonary vascular congestion or chronic interstitial disease. Clinical correlation is recommended. 2. Cardiomegaly. Ankush Parrish MD Cardiovascular: RRR Pulmonary: CTA GI/: NABS, NT Plan: Risks and benefits discussed with the patient. STS risk as follow: Risk Model and Variables - STS Adult Cardiac Surgery Database Version 2.81 RISK SCORES About the STS Risk Calculator Procedure: MV Repair Risk of Mortality: 1.013% Morbidity or Mortality: 20.796% Long Length of Stay: 8.794% Short Length of Stay: 29.73% Permanent Stroke: 1.026% Prolonged Ventilation: 11.401% DSW Infection: 0.171% Renal Failure: 4.449% Reoperation: 9.118% Patient agrees to proceed. (1) Diabetes (2) Severe mitral regurgitation by prior echocardiogram Plan: for surgery on Saturday (3) Gout Problem Qualifiers (1) Diabetes: Qualified Codes: E11.9 - Type 2 diabetes mellitus without complications; Z79.4 - skilled nursing (current) use of insulin Vianca Horner MD Jul 14, 2017 10:54
[2017-07-14 11:43] LABS: HEMOGLOBIN A1C 5.6 % (4.3-6.0)
--- NOTE | 2017-07-14 12:04 | HHI.FPPN ---
Subjective Remarks No acute events overnight. Vital signs unremarkable. This morning he reports that he continues to have his baseline nausea but without vomiting. Medications to help. He also continues to feel short of breath endorses chest pain that is unchanged since he has been in the hospital. He does understand that is all related to his heart and knows that he is having surgery tomorrow. Patient otherwise denies any acute complaints. Objective Vitals Vital Signs Date Time Temp Pulse Resp B/P (MAP) Pulse Ox O2 Delivery O2 Flow Rate FiO2 07/14/17 08:45 96 Nasal Cannula 2.00 07/14/17 08:00 97.5 60 20 152/79 (103) 95 07/14/17 08:00 98 Nasal Cannula 2.00 07/14/17 06:00 77 07/14/17 05:14 60 07/14/17 04:00 69 07/14/17 03:00 66 07/14/17 03:00 97.7 66 146/80 (102) 98 07/14/17 02:00 68 07/14/17 01:00 72 07/14/17 00:00 76 07/13/17 23:00 68 07/13/17 23:00 98.0 76 140/85 (103) 97 07/13/17 22:00 74 07/13/17 21:00 74 07/13/17 20:03 98 07/13/17 20:00 86 07/13/17 19:00 72 07/13/17 19:00 97.8 67 160/97 (118) 97 07/13/17 18:00 84 07/13/17 17:00 70 07/13/17 16:00 68 07/13/17 15:02 97.7 62 16 140/92 (108) 98 07/13/17 15:02 98 Room Air 07/13/17 15:02 69 07/13/17 14:01 72 07/13/17 13:03 75 07/13/17 12:22 71 I/O 07/13/17 07/13/17 07/13/17 07/14/17 07/14/17 07/14/17 07:00 15:00 23:00 07:00 15:00 23:00 Intake Total 480 ml 440 ml 480 ml Output Total 100 ml 100 ml 400 ml Balance 380 ml 340 ml 80 ml Intake Oral 480 ml 440 ml 480 ml Output Urine Total 100 ml 100 ml 400 ml # Voids 3 Result Diagram: 07/13/17 0507/13/17 0520 Objective Remarks GEN: Well-developed, well-nourished patient. No acute distress. SKIN: No rashes, ecchymoses or lesions. Warm and dry. CV: Regular rate and rhythm. Harsh holosystolic murmur again appreciated - unchanged. LUNGS: Clear to auscultation bilaterally. Normal respiratory effort. No wheezes , rales, rhonchi. GI: Nondistended EXT: No edema. No calf tenderness. NEURO/PSYCH: Awake, alert. Appropriate insight and judgment. Normal speech. Procedures Transthoracic Echocardiogram Report 07/09/2017: Normal left ventricular size. Mild concentric left ventricular hypertrophy. The left ventricular systolic function is low normal with an estimated ejection fraction in the range of 50- 55%. The left atrial size is mildly dilated. Severe mitral valve regurgitation. The mitral valve regurgitation jet is directed anteriorly. Moderate thickening of the mitral valve leaflets. Cannot rule out mobile echodensity on posterior mitral valve leaflet on the inflow side of the mitral valve apparatus. Posterior mitral valve leaflet prolapse. The estimated pulmonary arterial pressure is 54 mmHg. There is mild tricuspid valve regurgitation. Mild pulmonary valve regurgitation. Transesophageal Echocardiogram Report 07/10/17: Normal left ventricular size. Wall thickness is normal. The left ventricular systolic function is normal with an estimated ejection fraction in the range of 55-60%. The left atrial size is mildly dilated. Moderate thickening of the mitral valve leaflets. Severe mitral valve regurgitation. The mitral valve regurgitation jet is directed anteriorly. There is a partially ruptured chordae tendon a of the posterior mitral valve leaflet with eccentric severe mitral regurgitation and cowanda effect. The mitral valve is myxomatous. Mild thickening of the tricuspid valve leaflets. 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 Cardiac Catheterization 07/11: RIGHT HEART CATHETERIZATION: A 7-Amharic [place] pulmonary arterial catheter was advanced through the right femoral venous sheath to the level of the right atrium under fluoroscopic guidance. Hemodynamics were performed in all chambers while advanced to the pulmonary capillary wedge position. Hemodynamics were as follows: 1. Right atrial pressure measured at 9 mmHg. 2. Right ventricular pressure measured at 51/4 mmHg. 3. Pulmonary arterial pressure measured at 52/19 mmHg. 4. Pulmonary capillary wedge pressure measured at 19 mmHg. 5. Cardiac output was 4.2 liters per minute. 6. Cardiac index 2.2 liters per minute per meter squared. LEFT HEART CATHETERIZATION: Intraventricular hemodynamic shows 110/15 mmHg. CORONARY ANGIOGRAPHY: 1. Left main coronary artery is angiographically normal. 2. Left anterior descending coronary angiographically normal. Large diagonal branch angiographically normal. 3. Left circumflex has mild irregularities and a very small ramus intermedius branch has an ostial plaque but the first obtuse marginal branch is widely patent. 4. The right coronary artery is a large, dominant vessel giving rise to a posterior descending branch. CONCLUSIONS: 1. Fairly angiographically normal coronary arteries. 2. Severe mitral regurgitation. 3. Mild to moderate pulmonary hypertension. 4. Mildly reduced cardiac output and index. 5. Normal left-sided filling pressure. A/P Assessment and Plan 56 yo M with PMH of DM, HTN who presented due to 5 day history of progressive S OB, palpitations, chest discomfort. Found to have elevated troponin of 0.1, EKG with no ST changes on admission. Elevated D - Dimer. Admitted for PE workup, ACS workup. PE workup negative. Echo showing severe MR. SHAYAN showing severe mitral regurg and myxomatous/partially flail posterior leaflet on 07/10. Heart cath planned for 07/11 showed fairly normal coronary arteries but with severe mitral regurg with mild/moderate pulmonary hypertension and mildly reduced cardiac output. CT surgery consulted and planning for mitral valve repair vs replacement on 07/15 Discharge Planning Anticipate total inpatient stay of 5-7 days if surgical intervention occurs. CT surgery planning for surgical intervention of mitral valve dysfunction on . Unclear disposition at this time, possibly to home versus rehab DW Dr. Israel Problem List: (1) Severe mitral regurgitation by prior echocardiogram ICD Codes: I34.0 - Nonrheumatic mitral (valve) insufficiency Status: Acute Plan: Patient noted to have echocardiogram 07/09 showing severe MR, low normal EF 50-55%, possible vegetation, elevated pulmonary pressures. SHAYAN showed severe mitral regurgitation and myxomatous/partially flail posterior leaflet on 07/10 , CT surgery consulted. Heart cath showing fairly normal coronary arteries, severe MR, mild to moderate pulmonary hypertension, mildly reduced cardiac output with normal left-sided filling pressures. Continue telemetry, monitor for symptoms and offer support via oxygen if needed. Oxygen sats are normal at this time on room air CT surgery planning for mitral valve repair vs replacement on 07/15 (2) SOB (shortness of breath) ICD Codes: R06.02 - Shortness of breath Status: Acute Plan: Stable. Will continue to monitor. Possibly related to severe MR, COPD, pulm HTN PFTs performed at bedside on 07/12, will follow up results On admission: Patient reported 5 day history of worsening shortness of breath, palpitation and chest discomfort Has shortness of breath at baseline, acutely worsened on day of admission Chest x-ray on admission showed diffused increased interstitial markings Elevated d-dimer on admission of 1.95 CTA is negative for PE. Showed central lobar emphysema with chronic interstitial lung disease as well as a nonspecific 7 mm nodular infiltrate in R apex Bibasilar crackles on physical exam, orthopnea per history improved Duonebs q6hr, albuterol q2hr PRN (3) UTI (urinary tract infection) ICD Codes: N39.0 - Urinary tract infection, site not specified Status: Acute Plan: Urine culture positive for enterococcus faecalis Plan treatment of Rocephin 10 days (07/10- Blood cultures showing no growth (4) Hypertension ICD Codes: I10 - Essential (primary) hypertension Status: Chronic Plan: Patient has a known diagnosis of hypertension. Blood pressure much improved since admission. Continue carvedilol 12.5mg PO BID Vasotec, hydralazine, clonidine as needed for elevated/uncontrolled HTN. (5) Chest pain ICD Codes: R07.9 - Chest pain, unspecified Status: Resolved Plan: Chest pain resolved ACS evaluation negative. UDS was positive for cocaine -Please see more detailed plan above (6) Diabetes ICD Codes: E11.9 - Type 2 diabetes mellitus without complications Status: Chronic Plan: Patient with a known history of diabetes but A1c on admission was 5.5 and patient has not needed supplemental insulin. -Closely monitor glucose due to pending surgery but otherwise glucose has been well-controlled (7) Gout ICD Codes: M10.9 - Gout, unspecified Status: Chronic Plan: Known history of gout Will monitor symptoms (8) Pulmonary nodule ICD Codes: R91.1 - Solitary pulmonary nodule Status: Acute Plan: Concern for chronic lung process as patient has significant smoking history, has digital clubbing and weight loss Note 7mm nodule on CT scan, will discuss with patient to f/u in 2-3 months (9) Substance abuse ICD Codes: F19.10 - Other psychoactive substance abuse, uncomplicated Status: Chronic Plan: UDS + cocaine, tobacco abuse Counseled on the risk of lifethreatening addiction, intoxication, and withdrawal if he continues using substances (10) FEN Status: Acute Plan: F: PO hydration E: WNL, will replete as needed N: Heart healthy diet, NPO after midnight PPX: will hold for now given possible procedures, SCDs, Problem Qualifiers (1) Hypertension: Qualified Codes: I10 - Essential (primary) hypertension (2) Diabetes: Qualified Codes: E11.9 - Type 2 diabetes mellitus without complications; Z79.4 - long-term (current) use of insulin Jeannine Chandra MD, R3 Jul 14, 2017 12:04
--- NOTE | 2017-07-14 19:46 | EKG ---
Date Performed: 07/13/2017 Time Performed: 18:43:26 PTAGE: 56 years EKG: Sinus rhythm with PAC(s) Possible anteroseptal infarct - age undetermined Since the previous tracing, no signific ant change noted Abnormal ECG PREVIOUS TRACING : 07/09/2017 18.57 DOCTOR: Sunita Saleh Interpretating Date/Time 07/14/2017 19:45:15
[2017-07-14] MEDS: TAMSULOSIN HCL 0.4 MG CAP PO SCH (20:36)
[2017-07-14] MEDS: ZOLPIDEM TARTRATE 5 MG TAB PO PRN (23:44)
[2017-07-15] VITALS (16 sets, daily range): BP systolic 106–139; BP diastolic 67–83; PULSE 56–74; RESP 15–18; TEMP 97.6–98.2; O2SAT 95–99
[2017-07-15] MEDS ORDERED: CHLORHEXIDINE GLUCONATE 2 % 1 PACK (2 CLOTHS) TOPICAL PRN (01:30)
[2017-07-15] MEDS ORDERED: SODIUM CHLORID 0.9% 500 ML IV PRN (01:30)
[2017-07-15] MEDS ORDERED: POVIDONE IODINE 5% (ANTISEPSIS KIT) 4 APPLICATIONS EACH NARE PRN (01:30)
[2017-07-15] MEDS ORDERED: LACTATED RINGER'S 1000 ML IV PRN (01:30)
[2017-07-15 04:31] LABS: HEMATOCRIT 38.8 % (39.0-51.0); HEMOGLOBIN 12.9 GM/DL (13.0-17.0); MEAN CELL VOLUME 87.3 FL (80.0-100.0); MEAN CORPUSCULAR HGB CONC 33.2 % (32.0-36.0); MEAN PLATELET VOLUME 9.3 FL (7.0-11.0); PLATELET COUNT 119 TH/MM3 (150-450); RED BLOOD COUNT 4.44 MIL/MM3 (4.50-5.90); RED CELL DISTRIBUTION WIDTH 14.6 % (11.6-17.2); WHITE BLOOD COUNT 4.8 TH/MM3 (4.0-11.0)
[2017-07-15 04:46] LABS: BICARBONATE 22.4 MEQ/L (21.0-32.0); CALCIUM 8.3 MG/DL (8.5-10.1); CREATININE 1.22 MG/DL (0.60-1.30)
[2017-07-15] MEDS: CARVEDILOL 12.5 MG TAB PO SCH (04:54)
[2017-07-15] MEDS ORDERED: methylPREDNISolone SOD SUCC 125 MG/2 ML VIAL ONE (06:49)
[2017-07-15] MEDS ORDERED: ceFAZolin 2 GM PREMIX 50 ML ONE (06:49)
[2017-07-15] MEDS ORDERED: HEPARIN SODIUM - SQ 10,000 UNITS/ML VIAL ONE (06:49)
[2017-07-15] MEDS ORDERED: ceFAZolin INJ 1,000 MG VIAL ONE (06:50)
[2017-07-15] MEDS ORDERED: BUPIVACAINE HCL PF 0.5% 30 ML VIAL ONE (06:50)
[2017-07-15] MEDS ORDERED: CUSTODIOL HTK IRR SOLN 0 ML ONE (07:27)
[2017-07-15] MEDS ORDERED: CUSTODIOL HTK IRR SOLN 2,000 ML ONE (07:27)
[2017-07-15] MEDS ORDERED: CALCIUM CHLORIDE 10% SOLN 1 GRAM/10 ML SYR ONE (07:28)
[2017-07-15] MEDS ORDERED: POTASSIUM CHLORIDE 20 MEQ/10 ML VIAL ONE (07:28)
[2017-07-15] MEDS ORDERED: HEPARIN SODIUM - IV 10,000 UNITS/10 ML VIAL ONE (07:28)
[2017-07-15] MEDS ORDERED: SODIUM BICARBONATE 8.4% INJ 100 ML ONE (07:29)
[2017-07-15] MEDS ORDERED: ALBUMIN 25% INJ 50 ML IV ONE (07:29)
[2017-07-15] MEDS ORDERED: MANNITOL INJ 100 ML ONE (07:29)
[2017-07-15] MEDS ORDERED: BUPIVACAINE LIPOSO PF 1.3% INJ 20 ML, DEXAMETHASONE INJ 4 MG, MORPHINE INJ 8 MG in SODI... IRRIGATION SCH (10:00)
--- NOTE | 2017-07-15 10:21 | HHI.FF ---
Face to Face Verification Diagnosis: (1) S/P MVR (mitral valve replacement) (2) Substance abuse (3) Gout (4) Diabetes Home Health Nursing Order: Signs/symptoms of disease process Medication education-adverse effect Wound care and dressing changes Nursing assessment with vital signs Instructions: Heart and Vascular Surgery patients *Special attention to sternal dressing Mandatory frequency Assess and evaluation, 4 days in a row The next week 3X week 2 times a week for 4 weeks 1 time a week for 5 weeks Schedule Heart and Vascular patients for full 60 day certification period Initial visit Review Open Heart Surgery Discharge Instructions (Sternal precautions, Activity, Elastic hose, Incision care, Driving, Incentive spirometry, Smoking, [place], Work and other) Need Betadine to paint incision Medication reconciliation Importance of follow up care/ check on appointments Make calendar record temperature daily When to call [facility] [place] nurse, review instructions, phone list Incentive Spirometry, demonstration Visit 1- Begin discharge instruction for patient family and/ or caregiver using teach back method- Signs and symptoms of infection Disease characteristics Medicines and side effects Foods and nutrition/ appetite Infection control/ hand washing/ hygiene Visit 2- Continue teaching Discharge instructions- include additional information on smoking cessation , sternal dressing (sternal vac) Visit 3- Continue teaching- Cough and deep breathing, incision monitoring. Choose my plate Visit 4- Continue teaching- Discuss limitations Discuss how they are feeling Discuss progress toward goals Remaining visits- continue teaching and monitoring For any questions please call : Saturday 8am-5pm Heart & Vascular Surgery Office ( Dr. Roe & Dr. Horner), After Hours / Nights (5pm -8am) Weekends and Holidays Please call [facility] ([facility]) Charge Nurse PREVENA Single Use Negative Wound Therapy System Caregiver Instruction Sheet 1. A Prevena dressing system was applied to the chest incision during surgery , to promote wound healing. It works via a suction device (negative pressure wound therapy) to remove low to moderate levels of exudate (drainage) and infectious materials. We recommend that the device stay in place for up to seven days, from day of surgery. 2. Day of Surgery___3/ Day of Removal /06/09 3. The dressing should only be removed by a health career manager. Please arrange removal of device to coincide with Home Health visit and or with Nursing staff at Rehab 4. If skin reddening or irritation of skin occurs, or excessive drainage, please notify the Cardiovascular Surgeons office at [phone]. 5. Light showering is permissible; however the pump should be disconnected and placed in safe location, where it will not get wet. The dressing should not be exposed to direct spray or submerged in water. No bath tub / shower only. Ensure the end of the tubing attached to the dressing is facing down so that water does not enter the top of the tube. 6. To remove Prevena dressing: press purple button to turn off device / remove the suction. Then disconnect the tubing from the pump. The fixation strips should be stretched away from the skin and the dressing lifted at one corner and peeled back until it has been fully removed. 7. After removal, it is ok to shower daily using liquid dial soap and clean wash cloth, rinse and pat dry, and leave incision open to air dry. For any concerns regarding Prevena dressing, and or wounds, please contact Lucia Cabrera, patient navigator at [phone] or notify the Cardiovascular Surgeons office at [phone]. Incentive spirometry Q1 hr x 10, while awake, also use acapella device hourly whole awake Sternal Breast Bone Precautions: NO pushing or pulling, ( pt must use sternal pillow to support chest with all activities and with coughing ( takes up to 3 months breast bone to heal ) Daily incision care: ok to shower daily, no tub bath. Wash all incisions with liquid dial soap, clean wash cloth to each site, rinse and pat dry. Observe for any signs of infection, such as drainage which is dark yellow, fletcher, green or foul smelling. Immediately report to the surgeon any drainage from the chest incision, or legs, and for any abnormal drainage from the chest tube sites. Notify surgeon if any temp >101.5 degrees F. When specialty dressing removed/ or if you do not have one, continue to shower daily as above, then rinse and pat incision dry and paint with betadine daily x 5 days. Allow steri strips to fall off if you have any. Avoid lotions, creams, salves, oils, etc. for the first month Please see attached forms for additional instructions regarding post Open Heart specialty wound vacuum dressings. WILLIAM or Prevena , Dressing to be removed by Nursing staff on __07/22/[address] Horner patients , please obtain CBC, BMP, PA & Lat CXR in 2 weeks, results to Dr. Horner ( prescription will be given) ( ) (Tele: [phone]) , Valve replacement pts will need 2decho in 2 weeks with results to Dr. Horner . Please obtain 2 d echo at your certified vehicle fire investigator office if possible F/U appointment: as per DC instructions: PCP in 2 weeks, CV surgeon 2 weeks, Wood Inspector 3-4 weeks For any questions regarding incisions/ dressing / meds / post op care or above Symptoms, Saturday 8am-5pm Heart & Vascular Surgery Office ( Dr. Roe & Dr. Horner), After Hours / Nights (5pm -8am) Weekends and Holidays Please call [facility] ([facility]) Charge Nurse I have seen patient Stevo Chavez on 07/15/17. My clinical findings support the need for the requested home health care services because: Patient has SOB Deconditioned w/ increased weakness I certify that my clinical findings support that this patient is homebound because: Post-op weakness Tere Vang Jul 15, 2017 10:21
[2017-07-15] MEDS ORDERED: PHENYLEPHRINE HCL 10 MG/ML VIAL IV ONE (12:00)
[2017-07-15] MEDS ORDERED: MAGNESIUM SULFATE 1 GM/2 ML VIAL IV ONE (12:00)
[2017-07-15] MEDS ORDERED: SODIUM CHLORIDE 0.9% INJ 100 ML IV ONE (12:00)
[2017-07-15] MEDS ORDERED: NEOSTIGMINE METHYLSULFATE 10 MG/10 ML VIAL IV PUSH ONE (12:00)
[2017-07-15] MEDS ORDERED: AMINOCAPROIC ACID INJ 250 MG/ML 20 ML VIAL IV ONE (12:00)
[2017-07-15] MEDS ORDERED: SODIUM CHLORID 0.9% 500 ML INJ 500 ML IV ONE (12:00)
[2017-07-15] MEDS ORDERED: CALCIUM CHLORIDE 10% SOLN 1 GRAM/10 ML SYR IV ONE (12:00)
[2017-07-15] MEDS ORDERED: EPINEPHrine HCL (1:10,000) 1 MG/10 ML SYRINGE IV ONE (12:00)
[2017-07-15] MEDS ORDERED: GLYCOPYRROLATE 0.2 MG/ML VIAL IV ONE (12:00)
[2017-07-15] MEDS ORDERED: HEPARIN SODIUM - SQ 10,000 UNITS/ML VIAL SQ ONE (12:00)
[2017-07-15] MEDS ORDERED: VECURONIUM BROMIDE 10 MG VIAL IV ONE (12:00)
[2017-07-15] MEDS ORDERED: NORMOSOL R INJ 1,000 ML IV ONE (12:00)
[2017-07-15] MEDS ORDERED: PROTAMINE SULFATE 250 MG/25 ML VIAL IV ONE (12:00)
[2017-07-15] MEDS ORDERED: ePHEDrine/NS 25 MG/5 ML SYRINGE IV ONE (12:00)
[2017-07-15] MEDS ORDERED: PHENYLEPH/NS 1000 MCG/10 ML SYR IV ONE (12:00)
[2017-07-15] MEDS ORDERED: SODIUM CHLOR 0.9% 250 ML INJ 250 ML IV ONE (12:00)
[2017-07-15] MEDS ORDERED: LACTATED RINGER'S 1000 ML INJ 2,000 ML IV ONE (12:00)
--- NOTE | 2017-07-15 12:02 | RSPPFT ---
DATE OF PROCEDURE: 07/12/17 COMMENTS: The forced vital capacity is markedly reduced with significant improvement after bronchodilator. The FEV1 and FEF 25-75 are both markedly reduced with significant improvement after bronchodilator. The FEV1/FVC ratio is normal. IMPRESSION: This is compatible with severe, large and small airways, partially reversible, obstructive lung disease with what may be a restrictive component. The flow volume loop is irregular so any restriction may just be because of a poor study.
[2017-07-15] MEDS ORDERED: VECURONIUM BROMIDE 20 MG VIAL ONE (12:32)
[2017-07-15] MEDS ORDERED: LACTATED RINGER'S 1000 ML INJ 500 ML IV PRN (13:16)
[2017-07-15] MEDS ORDERED: RESP: ALBUTEROL 2.5 MG/IPRATROPIUM 0.5 MG NEB (PRN) NEB (13:30)
[2017-07-15] MEDS ORDERED: hydrALAZINE HCL 20 MG/ML VIAL IV PUSH PRN (13:30)
[2017-07-15] MEDS ORDERED: RESP: RACEPINEPHRINE 2.25% 0.5 ML NEB NEB PRN (13:30)
[2017-07-15] MEDS ORDERED: ACETAMINOPHEN 650 MG SUPP RECTAL PRN (13:30)
[2017-07-15] MEDS ORDERED: SODIUM CHLORIDE 0.9% FLUSH 10 ML FLUSH IV FLUSH PRN (13:30)
[2017-07-15] MEDS ORDERED: Post-op Orders (for Pharmacy) OTHER ONE (13:30)
[2017-07-15] MEDS ORDERED: INSULIN REGULAR (IV INFUSION) 100 UNITS in SODIUM CHLORIDE 0.9% INJ 99 ML IV PRN (13:30)
[2017-07-15] MEDS ORDERED: ALBUMIN 5% INJ 250 ML IV PRN (13:30)
[2017-07-15] MEDS ORDERED: ONDANSETRON HCL 4 MG/2 ML VIAL IV PUSH PRN (13:30)
[2017-07-15] MEDS ORDERED: ACETAMINOPHEN 325 MG TAB PO PRN (13:30)
[2017-07-15] MEDS ORDERED: CALCIUM CHLORIDE 10% 1 GRAM/10 ML VIAL IV PUSH PRN (13:30)
[2017-07-15] MEDS ORDERED: CALCIUM CHLORIDE INJ 1 GM in SODIUM CHLORIDE 0.9% INJ 100 ML IV PRN (13:30)
[2017-07-15] MEDS ORDERED: SODIUM BICARBONATE 8.4% SOLN 50 MEQ/50 ML VIAL IV PUSH PRN ×2 (13:30)
[2017-07-15] MEDS ORDERED: MAGNESIUM SULFATE INJ 2 GM in SODIUM CHLORIDE 0.9% INJ 100 ML IV PRN ×4 (13:30)
[2017-07-15] MEDS ORDERED: METOPROLOL TARTRATE 5 MG/5 ML VIAL IV PUSH PRN (13:30)
[2017-07-15] MEDS ORDERED: POTASSIUM CHLOR 20 MEQ PREMIX 100 ML IV PRN ×2 (13:30)
[2017-07-15] MEDS ORDERED: POTASSIUM CHLORIDE 20 MEQ CONTROLLED RELEASE TAB PO PRN ×2 (13:30)
[2017-07-15] MEDS ORDERED: DEXTROSE 50% IN WATER 50 ML VIAL(D50) IV PUSH PRN (13:30)
--- NOTE | 2017-07-15 13:30 | PD.OP ---
cc: Vianca Horner MD; Clarence Villegas MD Operative Report Date of Surgery: Jul 15, 2017 Preoperative Diagnosis: (1) Diastolic CHF (2) Severe mitral regurgitation by prior echocardiogram (3) SOB (shortness of breath) Postoperative Diagnosis: same Procedure: Minimally invasive MV repair with complex reconstruction of the posterior leaflet, ring annuloplasty with a 30 [place] ring Percutaneous ultrasound-guided cannulation let femoral artery and vein with Perclose closure of the artery SHAYAN Anesthesia: Dr. Lawrence Surgeon: Vianca Horner Tapper Operator(s): ILDA Kennedy Operation and Findings: Standard monitoring lines and Smith catheter were placed. General anesthesia was induced. The patient was prepped and draped in a sterile fashion. A 6 cm right anterior thoracotomy was performed in the 5th intercostal space. An Jasvir retractor was placed followed by a small chest retractor. The pericardium was opened and a pericardial sling was created using interrupted 0 silk sutures. A small 1 cm incision was made at the 7th intercostal space and an LV vent CO2 line were placed through this access port. The aorta was dissected posteriorly for crossclamp placement. The left femoral artery and vein were percutaneously accessed using ultrasound guidance. The patient was heparinized for cardiopulmonary bypass. The left femoral artery was cannulated with a 17F [employer] arterial cannula. The left femoral vein was cannulated with a 21 [employer] cannula under SHAYAN guidance. Two Perclose devices were placed in the artery for later closure. Antegrade Custodiol cardioplegia was employed. The patient was placed on cardiopulmonary bypass. [place] groove was dissected using electrocuatery and blunt dissection. An aortic cross-clamp was applied and the heart was arrested using cold Custodiol cardioplegia delivered through a 14F catheter. The left atrium was opened and the mitral valve was exposed. The valve was analyzed and the posterior leaflet was flail with ruptured chords centrally. P2 segment was resected. The posterior leaflet was reconstructed with interrupted 5-0 Ticron sutures. The repair was tested and found to be excellent. A ring annuloplasty was performed using a 30 [address] [place] ring. This was performed using interrupted 4-0 Ticron horizontal mattress sutures. The repair was tested and found to be excellent. The left atrium was closed using running 4-0 Prolene suture. The patient systemically rewarmed and placed in Trendelenburg position. Temporary ventricular pacing wires were placed. The cross clamp was removed, with the aorta and LV vented. The patient was easily weaned from cardiopulmonary bypass. Decannulation was carried out without incident and the artery was secured with the Perclose sutures. The vein was controlled with manual compression. Protamine was given. There was no adverse reaction. Intraoperative SHAYAN following the procedure showed a good repair with no MR or GEOVANNA. LV function was preserved. Wound was checked for hemostasis was obtained using electrocautery. A 32F right pleural chest tube was placed and secured to the skin with a 0 silk suture. The ribs were approximated using a 1 Vicryl suture. The subcutaneous tissue was closed using a running 3-0 Monocryl suture. The skin was closed with 4-0 Monocryl. Sterile dressings were placed. At the end of the operation, all sponge, instruments, and needle counts were correct. The patient was transferred to the CVICU in stable condition. Vianca Horner MD Jul 15, 2017 13:30
[2017-07-15] MEDS: CLEVIDIPINE INJ 50 ML IV PRN ×3 (14:00→21:30)
[2017-07-15] MEDS: AMIODARONE 200 MG TAB PO SCH ×2 (14:00→21:33)
[2017-07-15] MEDS: DEXTROSE 50% IN WATER 50 ML VIAL(D50) IV PUSH PRN ×2 (14:00→16:00)
[2017-07-15] MEDS ORDERED: MIDAZOLAM HCL 2 MG/2 ML VIAL ONE ×2 (14:07)
[2017-07-15] MEDS ORDERED: fentaNYL CITRATE 250 MCG/5 ML AMP ONE (14:08)
--- NOTE | 2017-07-15 14:54 | RADRPT ---
EXAM DATE/TIME: 07/15/2017 14:15 [place] COMPARISON: CHEST PA & LAT, July 09, 2017, 7:26. INDICATIONS : Postsurgical study status post chest tube placement and central venous line... MEDICAL HISTORY : Hypertension. Diabetes mellitus type II. SURGICAL HISTORY : cardiac catherization ENCOUNTER: Initial ACUITY: 1 day PAIN SCORE: Non-responsive. LOCATION: Bilateral chest FINDINGS: A single AP supine portable view of the chest was obtained and demonstrates interval placement of a r ight jugular central venous line with the tip projected over the superior vena cava. There is a right -sided chest tube in place the tip projected over the lung apex. There is apparent minimal pneumothor ax measuring approximately 4 mm in size. The heart size is mildly enlarged. There are mild hazy perih ilar and bibasilar opacities. The tips of the costophrenic angles were cut off the exam. CONCLUSION: 1. Interval placement of right internal jugular central venous line with a tiny apparent right apical pneumothorax measuring 4 mm. A right-sided chest tube is in place. 2. Cardiomegaly and mild hazy perihilar and bibasilar opacities of concern for mild pulmonary edema. Rasta Bonilla MD on July 15, 2017 at 14:48 Board Certified Radiologist. This report was verified electronically.
[2017-07-15] MEDS: DEXMEDETOMIDINE INJ 200 MCG in SODIUM CHLORIDE 0.9% INJ 50 ML IV PRN ×2 (15:00→19:52)
[2017-07-15] MEDS: ACETAMINOPHEN 1000 MG/100 ML 100 ML IV SCH ×2 (15:00→19:49)
--- NOTE | 2017-07-15 15:16 | HHI.FPPN ---
Subjective Remarks Patient is seen and examined in CVICU after surgery. He was extubated in OR and is somewhat alert, on Venturi mask with sats >95%. He moves all extremities and is responsive to some commands. Objective Vitals Vital Signs Date Time Temp Pulse Resp B/P (MAP) Pulse Ox O2 Delivery O2 Flow Rate FiO2 07/15/17 14:00 68 128/70 07/15/17 06:02 72 07/15/17 05:00 74 07/15/17 04:00 71 07/15/17 03:00 62 07/15/17 03:00 98.2 71 139/82 (101) 97 07/15/17 02:00 64 07/15/17 01:00 62 07/15/17 00:00 64 07/14/17 23:00 70 07/14/17 23:00 98.2 70 132/72 (92) 98 07/14/17 21:51 97 21 07/14/17 21:00 70 07/14/17 20:00 68 07/14/17 19:00 97.7 68 148/91 (110) 99 07/14/17 19:00 68 07/14/17 18:00 70 07/14/17 17:00 72 07/14/17 16:00 97.5 64 16 154/91 (112) 97 07/14/17 16:00 74 I/O 07/14/17 07/14/17 07/14/17 07/15/17 07/15/17 07/15/17 07:00 15:00 23:00 07:00 15:00 23:00 Intake Total 480 ml 580 ml 340 ml 3250 ml Output Total 400 ml 550 ml 425 ml 600 ml Balance 80 ml 30 ml -85 ml 2650 ml Intake Oral 480 ml 480 ml 340 ml IV Total 100 ml Autotransfusion 750 ml Other 2500 ml Output Urine Total 400 ml 550 ml 425 ml 600 ml Stool Total 0 ml # Voids 2 Result Diagram: 07/15/17 0400 07/15/17 0400 Imaging Last Impressions Carotid Artery Ultrasound 07/12/17 0000 Signed Impressions: Service Date/Time: Wednesday, July 12, 2017 09:27 - CONCLUSION: 1. Minimal carotid plaque without significant flow-limiting stenosis. 2. Antegrade vertebral artery flow bilaterally. Yann Camacho MD CT Angiography 07/09/17 0952 Signed Impressions: Service Date/Time: Sunday, July 09, 2017 10:31 - CONCLUSION: 1. No evidence of pulmonary embolism. 2. 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 3. Nonspecific 7 mm nodular infiltrate right apex. Recommend followup noncontrast CT thorax in 3 months after appropriate medical therapy. Cecil Soriano MD Chest X-Ray 07/09/17 0000 Signed Impressions: Service Date/Time: Sunday, July 09, 2017 07:26 - CONCLUSION: 1. Diffuse increased interstitial markings which are nonspecific and could represent acute pneumonitis, mild pulmonary vascular congestion or chronic interstitial disease. Clinical correlation is recommended. 2. Cardiomegaly. Ankush Parrish MD Objective Remarks GEN: Well-developed, well-nourished patient in CVICU. He is anxious and moves all extremities with 5/5 strength. SKIN: Left groin cannulation site with clean surgical dressing. Right chest with large clean surgical dressing. CV: Difficult to auscultate cardiac sounds due to oxygen and upper airway sounds. RIJ line noted LUNGS: Anterior lung gilliam clear, on Venti mask satting well. GI: Nondistended, bowel sounds hypoactive EXT: No edema. No calf tenderness. 2+ pulses in LEs bilat NEURO/PSYCH: Awake, alert, anxious but redirectable Procedures Transthoracic Echocardiogram Report 07/09/2017: Normal left ventricular size. Mild concentric left ventricular hypertrophy. The left ventricular systolic function is low normal with an estimated ejection fraction in the range of 50- 55%. The left atrial size is mildly dilated. Severe mitral valve regurgitation. The mitral valve regurgitation jet is directed anteriorly. Moderate thickening of the mitral valve leaflets. Cannot rule out mobile echodensity on posterior mitral valve leaflet on the inflow side of the mitral valve apparatus. Posterior mitral valve leaflet prolapse. The estimated pulmonary arterial pressure is 54 mmHg. There is mild tricuspid valve regurgitation. Mild pulmonary valve regurgitation. Transesophageal Echocardiogram Report 07/10/17: Normal left ventricular size. Wall thickness is normal. The left ventricular systolic function is normal with an estimated ejection fraction in the range of 55-60%. The left atrial size is mildly dilated. Moderate thickening of the mitral valve leaflets. Severe mitral valve regurgitation. The mitral valve regurgitation jet is directed anteriorly. There is a partially ruptured chordae tendon a of the posterior mitral valve leaflet with eccentric severe mitral regurgitation and cowanda effect. The mitral valve is myxomatous. Mild thickening of the tricuspid valve leaflets. 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 Cardiac Catheterization 07/11: RIGHT HEART CATHETERIZATION: A 7-Canadian Allgood-Dar pulmonary arterial catheter was advanced through the right femoral venous sheath to the level of the right atrium under fluoroscopic guidance. Hemodynamics were performed in all chambers while advanced to the pulmonary capillary wedge position. Hemodynamics were as follows: 1. Right atrial pressure measured at 9 mmHg. 2. Right ventricular pressure measured at 51/4 mmHg. 3. Pulmonary arterial pressure measured at 52/19 mmHg. 4. Pulmonary capillary wedge pressure measured at 19 mmHg. 5. Cardiac output was 4.2 liters per minute. 6. Cardiac index 2.2 liters per minute per meter squared. LEFT HEART CATHETERIZATION: Intraventricular hemodynamic shows 110/15 mmHg. CORONARY ANGIOGRAPHY: 1. Left main coronary artery is angiographically normal. 2. Left anterior descending coronary angiographically normal. Large diagonal branch angiographically normal. 3. Left circumflex has mild irregularities and a very small ramus intermedius branch has an ostial plaque but the first obtuse marginal branch is widely patent. 4. The right coronary artery is a large, dominant vessel giving rise to a posterior descending branch. CONCLUSIONS: 1. Fairly angiographically normal coronary arteries. 2. Severe mitral regurgitation. 3. Mild to moderate pulmonary hypertension. 4. Mildly reduced cardiac output and index. 5. Normal left-sided filling pressure. Medications and IVs Last Impressions Carotid Artery Ultrasound 07/12/17 0000 Signed Impressions: Service Date/Time: Wednesday, July 12, 2017 09:27 - CONCLUSION: 1. Minimal carotid plaque without significant flow-limiting stenosis. 2. Antegrade vertebral artery flow bilaterally. Yann Camacho MD CT Angiography 07/09/17 0952 Signed Impressions: Service Date/Time: Sunday, July 09, 2017 10:31 - CONCLUSION: 1. No evidence of pulmonary embolism. 2. 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 3. Nonspecific 7 mm nodular infiltrate right apex. Recommend followup noncontrast CT thorax in 3 months after appropriate medical therapy. Cecil Soriano MD Chest X-Ray 07/09/17 0000 Signed Impressions: Service Date/Time: Sunday, July 09, 2017 07:26 - CONCLUSION: 1. Diffuse increased interstitial markings which are nonspecific and could represent acute pneumonitis, mild pulmonary vascular congestion or chronic interstitial disease. Clinical correlation is recommended. 2. Cardiomegaly. Ankush Parrish MD Urinary Catheter: Yes Vascular Central Line Catheter: Yes A/P Assessment and Plan 56 yo M with PMH of DM, HTN who presented due to 5 day history of progressive S OB, palpitations, chest discomfort. Found to have elevated troponin of 0.1, EKG with no ST changes on admission. Elevated D - Dimer. Admitted for PE workup, ACS workup. PE workup negative. Echo showing severe MR. SHAYAN showing severe mitral regurg and myxomatous/partially flail posterior leaflet on 07/10. Heart cath planned for 07/11 showed fairly normal coronary arteries but with severe mitral regurg with mild/moderate pulmonary hypertension and mildly reduced cardiac output. CT surgery consulted and planning for mitral valve repair vs replacement on 07/15 Discharge Planning Anticipate total inpatient stay of 5-7 days after surgical intervention. S/P mitral valve repair on 07/15. Unclear disposition at this time, possibly to home versus rehab DW Dr. Israle Problem List: (1) Severe mitral regurgitation by prior echocardiogram ICD Codes: I34.0 - Nonrheumatic mitral (valve) insufficiency Status: Acute Plan: Patient noted to have echocardiogram 07/09 showing severe MR, low normal EF 50-55%, possible vegetation, elevated pulmonary pressures. SHAYAN showed severe mitral regurgitation and myxomatous/partially flail posterior leaflet on 07/10 , CT surgery consulted. Heart cath showing fairly normal coronary arteries, severe MR, mild to moderate pulmonary hypertension, mildly reduced cardiac output with normal left-sided filling pressures. Continue telemetry, monitor for symptoms and offer support via oxygen if needed. Oxygen sats are normal at this time on room air CT performed mitral valve repair 07/15, patient to be monitored and managed closely by CT team at this time (2) SOB (shortness of breath) ICD Codes: R06.02 - Shortness of breath Status: Acute Plan: Will continue to monitor. Possibly related to severe MR, COPD, pulm HTN PFTs performed at bedside on 07/12, will follow up results On admission: Patient reported 5 day history of worsening shortness of breath, palpitation and chest discomfort Has shortness of breath at baseline, acutely worsened on day of admission Chest x-ray on admission showed diffused increased interstitial markings Elevated d-dimer on admission of 1.95 CTA is negative for PE. Showed central lobar emphysema with chronic interstitial lung disease as well as a nonspecific 7 mm nodular infiltrate in R apex Bibasilar crackles on physical exam, orthopnea per history improved Duonebs q6hr, albuterol q2hr PRN (3) UTI (urinary tract infection) ICD Codes: N39.0 - Urinary tract infection, site not specified Status: Acute Plan: Urine culture positive for enterococcus faecalis Plan treatment of Rocephin 10 days (07/10- Blood cultures showing no growth (4) Hypertension ICD Codes: I10 - Essential (primary) hypertension Status: Chronic Plan: Patient has a known diagnosis of hypertension. Blood pressure much improved since admission. Continue carvedilol 12.5mg PO BID Vasotec, hydralazine, clonidine as needed for elevated/uncontrolled HTN. (5) Chest pain ICD Codes: R07.9 - Chest pain, unspecified Status: Resolved Plan: Chest pain resolved ACS evaluation negative. UDS was positive for cocaine -Please see more detailed plan above (6) Diabetes ICD Codes: E11.9 - Type 2 diabetes mellitus without complications Status: Chronic Plan: Patient with a known history of diabetes but A1c on admission was 5.5 and patient has not needed supplemental insulin. -Closely monitor glucose due to pending surgery but otherwise glucose has been well-controlled (7) Gout ICD Codes: M10.9 - Gout, unspecified Status: Chronic Plan: Known history of gout Will monitor symptoms (8) Pulmonary nodule ICD Codes: R91.1 - Solitary pulmonary nodule Status: Acute Plan: Concern for chronic lung process as patient has significant smoking history, has digital clubbing and weight loss Note 7mm nodule on CT scan, will discuss with patient to f/u in 2-3 months (9) Substance abuse ICD Codes: F19.10 - Other psychoactive substance abuse, uncomplicated Status: Chronic Plan: UDS + cocaine, tobacco abuse Counseled on the risk of lifethreatening addiction, intoxication, and withdrawal if he continues using substances (10) FEN Status: Acute Plan: F: per CT sx E: WNL, will replete as needed N: NPO, CT sx to PPX: per CT sx Problem Qualifiers (1) Hypertension: Qualified Codes: I10 - Essential (primary) hypertension (2) Diabetes: Qualified Codes: E11.9 - Type 2 diabetes mellitus without complications; Z79.4 - distribution technician (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
[2017-07-15] MEDS: RESP: ALBUTEROL 2.5 MG/IPRATROPIUM 0.5 MG NEB (SCH) NEB ×2 (16:13→19:17)
[2017-07-15] MEDS: POTASSIUM CHLOR 20 MEQ PREMIX 100 ML IV PRN ×2 (16:52→18:59)
[2017-07-15] MEDS ORDERED: FUROSEMIDE 40 MG/4 ML VIAL ONE (18:18)
[2017-07-15] MEDS ORDERED: FUROSEMIDE 20 MG/2 ML VIAL IV PUSH ONE (18:30)
[2017-07-15] MEDS: TAMSULOSIN HCL 0.4 MG CAP PO SCH (19:49)
[2017-07-15] MEDS: SODIUM CHLORIDE 0.9% FLUSH 10 ML FLUSH IV FLUSH SCH (19:49)
[2017-07-16] VITALS (18 sets, daily range): BP systolic 106–145; BP diastolic 60–83; PULSE 54–76; RESP 15–26; TEMP 96.5–97.6; O2SAT 93–100
[2017-07-16] MEDS: ACETAMINOPHEN 1000 MG/100 ML 100 ML IV SCH ×2 (01:44→08:03)
[2017-07-16] MEDS: RESP: ALBUTEROL 2.5 MG/IPRATROPIUM 0.5 MG NEB (SCH) NEB ×4 (03:12→20:58)
--- NOTE | 2017-07-16 04:22 | RADRPT ---
EXAM DATE/TIME: 07/16/2017 03:11 [facility] COMPARISON: CHEST SINGLE AP, July 15, 2017, 14:15. INDICATIONS : Short of breath, Post CABG. MEDICAL HISTORY : Hypertension. Diabetes mellitus type II. SURGICAL HISTORY : cardiac catherization ENCOUNTER: Subsequent ACUITY: 2 days PAIN SCORE: 0/10 LOCATION: Bilateral chest FINDINGS: A single view of the chest demonstrates stable right apical pneumothorax. Right-sided chest tube unch anged. Cardiomegaly with right upper lobe is bibasilar densities. Osseous structures are intact. CONCLUSION: Stable small right apical pneumothorax. Bilateral parenchymal densities. Erasmo Nails MD on July 16, 2017 at 4:18 Board Certified Radiologist. This report was verified electronically.
[2017-07-16 04:41] LABS: HEMATOCRIT 36.3 % (39.0-51.0); MEAN CELL VOLUME 86.9 FL (80.0-100.0); MEAN CORPUSCULAR HEMOGLOBIN 28.8 PG (27.0-34.0); MEAN CORPUSCULAR HGB CONC 33.1 % (32.0-36.0); MEAN PLATELET VOLUME 9.5 FL (7.0-11.0); PLATELET COUNT 79 TH/MM3 (150-450); RED BLOOD COUNT 4.18 MIL/MM3 (4.50-5.90); RED CELL DISTRIBUTION WIDTH 14.6 % (11.6-17.2); WHITE BLOOD COUNT 11.4 TH/MM3 (4.0-11.0)
[2017-07-16 05:04] LABS: BICARBONATE 25.9 MEQ/L (21.0-32.0); CALCIUM 8.7 MG/DL (8.5-10.1); CREATININE 1.26 MG/DL (0.60-1.30)
[2017-07-16] MEDS: AMIODARONE 200 MG TAB PO SCH ×2 (06:00→13:28)
[2017-07-16] MEDS: PANTOPRAZOLE SOD 40 MG DELAYED RELEASE TAB PO SCH (06:00)
[2017-07-16] MEDS: ASPIRIN 81 MG CHEW TAB PO SCH (08:03)
[2017-07-16] MEDS: SODIUM CHLORIDE 0.9% FLUSH 10 ML FLUSH IV FLUSH SCH ×2 (08:03→21:00)
[2017-07-16] MEDS: CLEVIDIPINE INJ 50 ML IV PRN (08:08)
[2017-07-16] MEDS ORDERED: SOD PHOSPHATE/SOD BIPHOSPHATE (ADULT) ENEMA 133ML RECTAL PRN (08:30)
[2017-07-16] MEDS ORDERED: GLUCAGON 1 MG/ML VIAL OTHER PRN (08:30)
[2017-07-16] MEDS ORDERED: BISACODYL 10 MG SUPP RECTAL PRN (08:30)
[2017-07-16] MEDS ORDERED: DEXTROSE 50% IN WATER 50 ML VIAL(D50) IV PUSH PRN (08:30)
[2017-07-16] MEDS ORDERED: POTASSIUM CHLORIDE 10 MEQ CONTROLLED RELEASE TAB PO ONE (08:30)
[2017-07-16] MEDS: BUDESONIDE-FORMOTEROL 160/4.5 MCG INHALER INH SCH ×2 (09:00→21:00)
--- NOTE | 2017-07-16 09:11 | PD.CAR.PN ---
CVT Progress Note Subjective/Hospital Course: A 56-year-old male with history of hypertension, diabetes and gout, who has not been taking his medication in the last 3 months, apparently has been having problems with his physician and followup, progressive shortness of breath for the past 1 week, also some lower extremity edema, presented to the emergency department and was given some nitro without much relief. His D-dimer is mildly elevated. He had a CTA of the chest which ruled out a pulmonary embolus; however, he does have some significant emphysema. He also has a small 7-mm nodule in the right apex that needs to be followed up in 3 months. He underwent echocardiogram showing an ejection fraction of 50-55%, severe mitral valve regurgitation; mitral valve regurgitation jet is directed anteriorly. 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 He then underwent cardiac catheterization today, which showed fairly angiographically normal coronaries, mildly reduced cardiac output of 4.2 with an index of 2.2. We were consulted to evaluate for mitral valve repair versus replacement. PAST MEDICAL HISTORY: Hypertension, diabetes, gout. 07/12 c/o of dypnea / sat 95% on room air now scheduled for surgery on Saturday07/14/17 For MV repair or replacement tomorrow 07/15 surgery: Minimally invasive MV repair with complex reconstruction of the posterior leaflet, ring annuloplasty with a 30 Toro ring Percutaneous ultrasound-guided cannulation let femoral artery and vein with Perclose closure of the artery extubated after surgery 2500cc crystalloid, 750cc cell saver / + steroids 07/16 remains on 8L face mask, weaned off precedex at 5 am , still very sleepy, painful oozing to right chest wall incision , no improved , + wires chest tube to wall suction , no air leak , CAR small apical PTX PLT 79 will need 6 weeks of coumadin 2-2.5 transfer out of ICU , OT/PT Objective: GENERAL: A&O x 3, sleepy SKIN: Warm and dry. incision intact right upper chest wall , + wires, small amount of bloody drainage right chest wire satellite project site monitor: Normocephalic. EYES: No scleral icterus. No injection or drainage. NECK: Supple, trachea midline. No JVD or lymphadenopathy. CARDIOVASCULAR: Regular rate and rhythm without murmurs, gallops, or rubs. RESPIRATORY: Breath sounds equal bilaterally. No accessory muscle use. diminished in bases , chest tube to wall suction, no air leak / drained 160cc/ 12 hrs GASTROINTESTINAL: Abdomen soft, non-tender, nondistended. MUSCULOSKELETAL: No cyanosis, or edema. BACK: Nontender without obvious deformity. No CVA tenderness. Vital Signs Date Time Temp Pulse Resp B/P (MAP) Pulse Ox O2 Delivery O2 Flow Rate FiO2 07/16/17 08:58 16 07/16/17 08:08 53 111/55 07/16/17 07:48 95 Simple Mask 10.00 07/16/17 07:00 97.2 54 16 108/70 (83) 97 117/60 (79) 07/16/17 07:00 54 07/16/17 07:00 57 07/16/17 07:00 97 Simple Mask 10.00 07/16/17 04:36 57 07/16/17 04:36 96 Simple Mask 8.00 07/16/17 04:36 97.5 57 15 106/64 (78) 96 118/69 (85) 07/16/17 04:36 54 07/16/17 03:12 95 Nasal Cannula 4.00 07/16/17 00:20 99 Simple Mask 8.00 07/15/17 23:10 96 Simple Mask 12.00 07/15/17 23:10 97.9 57 15 106/67 (80) 96 127/73 (91) 07/15/17 23:10 56 07/15/17 23:10 57 07/15/17 23:00 95 Nasal Cannula 12.00 07/15/17 21:30 57 123/72 07/15/17 19:53 56 117/66 07/15/17 19:20 97.6 57 15 118/69 (85) 96 117/68 (84) 07/15/17 19:20 96 Bi-Pap 80 07/15/17 19:20 57 07/15/17 19:18 97 50 07/15/17 19:18 97 BiPAP 80 07/15/17 19:00 57 07/15/17 18:44 18 07/15/17 18:42 95 100 07/15/17 16:13 95 Non-Rebreather 15.00 07/15/17 16:00 97.8 07/15/17 15:00 98 Non-Rebreather 15.00 100 07/15/17 15:00 66 07/15/17 15:00 97.8 68 18 128/83 (98) 99 127/72 (90) 07/15/17 14:00 68 128/70 07/15/17 13:50 97.8 Labs: Laboratory Tests Test 07/16/17 04:27 White Blood Count 11.4 TH/MM3 (4.0-11.0) Red Blood Count 4.18 MIL/MM3 (4.50-5.90) Hemoglobin 12.0 GM/DL (13.0-17.0) Hematocrit 36.3 % (39.0-51.0) Mean Corpuscular Volume 86.9 FL (80.0-100.0) Mean Corpuscular Hemoglobin 28.8 PG (27.0-34.0) Mean Corpuscular Hemoglobin Concent 33.1 % (32.0-36.0) Red Cell Distribution Width 14.6 % (11.6-17.2) Platelet Count 79 TH/MM3 (150-450) Mean Platelet Volume 9.5 FL (7.0-11.0) Blood Urea Nitrogen 34 MG/DL (7-18) Creatinine 1.26 MG/DL (0.60-1.30) Random Glucose 111 MG/DL (74-106) Calcium Level 8.7 MG/DL (8.5-10.1) Magnesium Level 2.0 MG/DL (1.5-2.5) Sodium Level 138 MEQ/L (136-145) Potassium Level 4.5 MEQ/L (3.5-5.1) Chloride Level 107 MEQ/L (98-107) Carbon Dioxide Level 25.9 MEQ/L (21.0-32.0) Anion Gap 5 MEQ/L (5-15) Estimat Glomerular Filtration Rate 72 ML/MIN (>89) Result Diagram: 07/16/1742607/16/17426 Telemetry: NSR> sinus ismael (1) Diabetes Plan: HGB aic 5.6 (2) Severe mitral regurgitation by prior echocardiogram Plan: s/p MV ring leave chest tube in pulm toileting gentle diuresis hold BB 2/2 ismael cardia, add norvasc OOB , ambulate eval for rehab vs [facility] (3) Gout Problem Qualifiers (1) Diabetes: Qualified Codes: E11.9 - Type 2 diabetes mellitus without complications; Z79.4 - intermediate frame tender (current) use of insulin Tere Vang Jul 16, 2017 09:11
[2017-07-16] MEDS: MULTIVITAMINS/MINERALS THERAPEUTIC TAB PO SCH (09:24)
[2017-07-16] MEDS: amLODIPine BESYLATE 5 MG TAB PO SCH (09:24)
[2017-07-16] MEDS: FUROSEMIDE 20 MG/2 ML VIAL IV PUSH SCH (09:24)
[2017-07-16] MEDS: MAGNESIUM HYDROXIDE SUSP 30 ML CUP PO SCH (09:24)
[2017-07-16] MEDS: INSULIN ASPART SUPPLEMENTAL SCALE SQ SCH ×3 (10:00→18:19)
[2017-07-16] MEDS: oxyCODONE/ACETAMINOPHEN 5 MG/325 MG TAB PO PRN ×4 (10:37→20:43)
--- NOTE | 2017-07-16 15:35 | EKG ---
Date Performed: 07/16/2017 Time Performed: 03:36:34 PTAGE: 56 years EKG: Sinus bradycardia Prolonged QT interval Possible anterior infarct - age undetermined Abnorm al ECG Since the PREVIOUS TRACING , no significant change noted PREVIOUS TRACIN07/13/2017 18.43 DOCTOR: Bruce Pepper Interpretating Date/Time 07/16/2017 15:33:51
[2017-07-16] MEDS: SENNOSIDES 8.6 MG TAB PO SCH (20:42)
[2017-07-16] MEDS: DOCUSATE SODIUM 100 MG CAP PO SCH (20:42)
[2017-07-16] MEDS: TAMSULOSIN HCL 0.4 MG CAP PO SCH (20:42)
[2017-07-17] VITALS (25 sets, daily range): BP systolic 108–171; BP diastolic 57–85; PULSE 54–76; RESP 16–19; TEMP 97.2–98.9; O2SAT 95–100
[2017-07-17] MEDS: INSULIN ASPART SUPPLEMENTAL SCALE SQ SCH ×5 (02:00→21:00)
[2017-07-17] MEDS: AMIODARONE 200 MG TAB PO SCH ×2 (05:04→21:56)
[2017-07-17] MEDS: PANTOPRAZOLE SOD 40 MG DELAYED RELEASE TAB PO SCH (05:04)
[2017-07-17 06:08] LABS: BASOPHIL % 0.2 % (0.0-2.0); EOSINOPHIL % 0.1 % (0.0-4.0); HEMATOCRIT 35.2 % (39.0-51.0); HEMOGLOBIN 11.8 GM/DL (13.0-17.0); LYMPH % 12.7 % (9.0-44.0); LYMPHOCYTE # 1.2 TH/MM3 (1.0-4.8); MEAN CELL VOLUME 86.9 FL (80.0-100.0); MEAN CORPUSCULAR HEMOGLOBIN 29.1 PG (27.0-34.0); MEAN CORPUSCULAR HGB CONC 33.5 % (32.0-36.0); MEAN PLATELET VOLUME 9.4 FL (7.0-11.0); MONO % 9.7 % (0.0-8.0); MONOCYTE # 0.9 TH/MM3 (0-0.9); NEUT % 77.3 % (16.0-70.0); PLATELET COUNT 111 TH/MM3 (150-450); RED BLOOD COUNT 4.05 MIL/MM3 (4.50-5.90); RED CELL DISTRIBUTION WIDTH 14.7 % (11.6-17.2)
[2017-07-17 06:12] LABS: INTERNATIONAL NORMALIZED RATIO 1.1 RATIO; PROTHROMBIN TIME - PATIENT 10.8 SEC (9.8-11.6)
[2017-07-17 06:34] LABS: BICARBONATE 26.5 MEQ/L (21.0-32.0); CALCIUM 8.5 MG/DL (8.5-10.1); CREATININE 1.07 MG/DL (0.60-1.30); MAGNESIUM 1.9 MG/DL (1.5-2.5)
[2017-07-17] MEDS: RESP: ALBUTEROL 2.5 MG/IPRATROPIUM 0.5 MG NEB (SCH) NEB ×3 (08:05→20:46)
[2017-07-17] MEDS: oxyCODONE/ACETAMINOPHEN 5 MG/325 MG TAB PO PRN (08:15)
[2017-07-17] MEDS: ASPIRIN 81 MG CHEW TAB PO SCH (08:17)
[2017-07-17] MEDS: POLYETHYLENE GLYCOL 17 GM PKG PO SCH (08:18)
[2017-07-17] MEDS: amLODIPine BESYLATE 5 MG TAB PO SCH (08:18)
[2017-07-17] MEDS: MAGNESIUM HYDROXIDE SUSP 30 ML CUP PO SCH (08:18)
[2017-07-17] MEDS: MULTIVITAMINS/MINERALS THERAPEUTIC TAB PO SCH (08:18)
[2017-07-17] MEDS: FUROSEMIDE 20 MG/2 ML VIAL IV PUSH SCH (08:18)
[2017-07-17] MEDS: DOCUSATE SODIUM 100 MG CAP PO SCH ×2 (08:18→21:57)
[2017-07-17] MEDS: SODIUM CHLORIDE 0.9% FLUSH 10 ML FLUSH IV FLUSH SCH ×2 (08:19→21:57)
[2017-07-17] MEDS: BUDESONIDE-FORMOTEROL 160/4.5 MCG INHALER INH SCH ×2 (10:15→21:58)
--- NOTE | 2017-07-17 12:42 | PD.CAR.PN ---
CVT Progress Note Subjective/Hospital Course: A 56-year-old male with history of hypertension, diabetes and gout, who has not been taking his medication in the last 3 months, apparently has been having problems with his physician and followup, progressive shortness of breath for the past 1 week, also some lower extremity edema, presented to the emergency department and was given some nitro without much relief. His D-dimer is mildly elevated. He had a CTA of the chest which ruled out a pulmonary embolus; however, he does have some significant emphysema. He also has a small 7-mm nodule in the right apex that needs to be followed up in 3 months. He underwent echocardiogram showing an ejection fraction of 50-55%, severe mitral valve regurgitation; mitral valve regurgitation jet is directed anteriorly. 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 He then underwent cardiac catheterization today, which showed fairly angiographically normal coronaries, mildly reduced cardiac output of 4.2 with an index of 2.2. We were consulted to evaluate for mitral valve repair versus replacement. PAST MEDICAL HISTORY: Hypertension, diabetes, gout. 07/12 c/o of dypnea / sat 95% on room air now scheduled for surgery on Saturday07/14/17 For MV repair or replacement tomorrow 07/15 surgery: Minimally invasive MV repair with complex reconstruction of the posterior leaflet, ring annuloplasty with a 30 Toro ring Percutaneous ultrasound-guided cannulation let femoral artery and vein with Perclose closure of the artery extubated after surgery 2500cc crystalloid, 750cc cell saver / + steroids 07/16 remains on 8L face mask, weaned off precedex at 5 am , still very sleepy, painful oozing to right chest wall incision , no improved , + wires chest tube to wall suction , no air leak , CAR small apical PTX PLT 79 will need 6 weeks of coumadin 2-2.5 transfer out of ICU , OT/PT 07/17 chest tubes dc remains in NSR pt to start coumadin 5mg today for 6 weeks pain med adjusted OOB ambulate, wean 02 Objective: GENERAL: A&O x 3 SKIN: Warm and dry. prevena to chest HEAD: Normocephalic. EYES: No scleral icterus. No injection or drainage. NECK: Supple, trachea midline. No JVD or lymphadenopathy. CARDIOVASCULAR: Regular rate and rhythm without murmurs, gallops, or rubs. RESPIRATORY: Breath sounds equal bilaterally. No accessory muscle use. diminished in the bases GASTROINTESTINAL: Abdomen soft, non-tender, nondistended. MUSCULOSKELETAL: No cyanosis, or edema. BACK: Nontender without obvious deformity. No CVA tenderness. Vital Signs Date Time Temp Pulse Resp B/P (MAP) Pulse Ox O2 Delivery O2 Flow Rate FiO2 07/17/17 12:15 68 07/17/17 11:44 95 Nasal Cannula 2.00 07/17/17 11:44 70 07/17/17 11:09 69 07/17/17 11:09 97.9 70 17 143/76 (98) 95 07/17/17 10:05 73 07/17/17 10:00 76 07/17/17 09:02 74 07/17/17 09:00 74 07/17/17 08:10 73 07/17/17 08:10 98 Nasal Cannula 2.00 07/17/17 08:10 155/84 (107) 07/17/17 08:06 71 07/17/17 08:01 75 19 171/82 (111) 98 07/17/17 08:00 72 07/17/17 07:50 Nasal Cannula 2.00 07/17/17 07:24 98.9 73 18 128/70 (89) 100 07/17/17 07:24 75 07/17/17 07:00 70 07/17/17 03:40 22 07/17/17 03:00 97.2 73 16 157/85 (109) 98 07/17/17 03:00 96 Nasal Cannula 3.00 07/16/17 23:00 97.5 76 24 142/68 (92) 98 07/16/17 23:00 98 Nasal Cannula 3.00 07/16/17 21:50 18 07/16/17 20:59 93 Nasal Cannula 3.00 07/16/17 19:00 99 Nasal Cannula 3.00 07/16/17 19:00 97.6 71 20 141/83 (102) 98 07/16/17 18:00 70 07/16/17 17:00 66 07/16/17 16:00 64 07/16/17 15:55 97.0 66 26 129/73 (91) 99 07/16/17 15:55 99 Nasal Cannula 3.00 07/16/17 15:55 62 07/16/17 15:00 65 07/16/17 14:00 62 07/16/17 13:00 62 Labs: Laboratory Tests Test 07/17/17 05:55 White Blood Count 9.0 TH/MM3 (4.0-11.0) Red Blood Count 4.05 MIL/MM3 (4.50-5.90) Hemoglobin 11.8 GM/DL (13.0-17.0) Hematocrit 35.2 % (39.0-51.0) Mean Corpuscular Volume 86.9 FL (80.0-100.0) Mean Corpuscular Hemoglobin 29.1 PG (27.0-34.0) Mean Corpuscular Hemoglobin Concent 33.5 % (32.0-36.0) Red Cell Distribution Width 14.7 % (11.6-17.2) Platelet Count 111 TH/MM3 (150-450) Mean Platelet Volume 9.4 FL (7.0-11.0) Neutrophils (%) (Auto) 77.3 % (16.0-70.0) Lymphocytes (%) (Auto) 12.7 % (9.0-44.0) Monocytes (%) (Auto) 9.7 % (0.0-8.0) Eosinophils (%) (Auto) 0.1 % (0.0-4.0) Basophils (%) (Auto) 0.2 % (0.0-2.0) Neutrophils # (Auto) 7.0 TH/MM3 (1.8-7.7) Lymphocytes # (Auto) 1.2 TH/MM3 (1.0-4.8) Monocytes # (Auto) 0.9 TH/MM3 (0-0.9) Eosinophils # (Auto) 0.0 TH/MM3 (0-0.4) Basophils # (Auto) 0.0 TH/MM3 (0-0.2) CBC Comment DIFF FINAL Differential Comment Prothrombin Time 10.8 SEC (9.8-11.6) Prothromb Time International Ratio 1.1 RATIO Blood Urea Nitrogen 36 MG/DL (7-18) Creatinine 1.07 MG/DL (0.60-1.30) Random Glucose 97 MG/DL (74-106) Calcium Level 8.5 MG/DL (8.5-10.1) Magnesium Level 1.9 MG/DL (1.5-2.5) Sodium Level 136 MEQ/L (136-145) Potassium Level 4.3 MEQ/L (3.5-5.1) Chloride Level 104 MEQ/L (98-107) Carbon Dioxide Level 26.5 MEQ/L (21.0-32.0) Anion Gap 6 MEQ/L (5-15) Estimat Glomerular Filtration Rate 87 ML/MIN (>89) Result Diagram: 07/17/1755407/17/17554 Telemetry: NSR (1) Diabetes Plan: HGB aic 5.6 (2) Severe mitral regurgitation by prior echocardiogram Plan: s/p MV ring leave chest tube in pulm toileting gentle diuresis hold BB 2/2 ismael cardia, add norvasc decrease amiodarone HR now 70's chest tube removed OOB , ambulate eval for rehab vs [facility] (3) Gout (4) S/P MVR (mitral valve replacement) Plan: chest tube removed start coumadin 5 mg , INR goal 2.0-2.5 Problem Qualifiers (1) Diabetes: Qualified Codes: E11.9 - Type 2 diabetes mellitus without complications; Z79.4 - long-term (current) use of insulin Tere Vang Jul 17, 2017 12:42
[2017-07-17] MEDS: MAGNESIUM SULFATE 1 GM PREMIX 100 ML IV SCH ×2 (13:12→14:15)
[2017-07-17] MEDS: oxyCODONE/ACETAMINOPHEN 7.5 MG/325 MG TAB PO PRN ×2 (15:49→21:57)
[2017-07-17] MEDS: WARFARIN SOD 5 MG TAB PO SCH (16:59)
[2017-07-17] MEDS: TAMSULOSIN HCL 0.4 MG CAP PO SCH (21:56)
[2017-07-17] MEDS: SENNOSIDES 8.6 MG TAB PO SCH (21:56)
[2017-07-18] VITALS (24 sets, daily range): BP systolic 122–152; BP diastolic 62–81; PULSE 56–72; RESP 17–18; TEMP 97.8–98.8; O2SAT 93–99
--- NOTE | 2017-07-18 05:08 | RADRPT ---
EXAM DATE/TIME: 07/18/2017 04:04 [place] COMPARISON: CHEST SINGLE AP, July 16, 2017, 3:11. INDICATIONS : Shortness of breath, possible pulmonary disease. MEDICAL HISTORY : Hypertension. Diabetes mellitus type II. SURGICAL HISTORY : CABG. ENCOUNTER: Subsequent ACUITY: 4 - 6 days PAIN SCORE: 3/10 LOCATION: Bilateral chest FINDINGS: A single view of the chest demonstrates better aeration of the lungs. Minimal bibasilar densities. Ri ght-sided chest tube removed. Small apical pneumothorax. Right jugular central line in stable positio n.. Osseous structures are intact. CONCLUSION: 1. The lungs are better aerated with minimal bibasilar densities. 2. Small right apical pneumothorax not significantly changed. Erasmo Nails MD on July 18, 2017 at 5:05 Board Certified Radiologist. This report was verified electronically.
[2017-07-18 05:22] LABS: PROTHROMBIN TIME - PATIENT 10.3 SEC (9.8-11.6)
[2017-07-18 05:31] LABS: BICARBONATE 30.5 MEQ/L (21.0-32.0); CALCIUM 8.5 MG/DL (8.5-10.1); CREATININE 0.89 MG/DL (0.60-1.30); MAGNESIUM 2.3 MG/DL (1.5-2.5)
[2017-07-18] MEDS: PANTOPRAZOLE SOD 40 MG DELAYED RELEASE TAB PO SCH (05:42)
[2017-07-18] MEDS: INSULIN ASPART SUPPLEMENTAL SCALE SQ SCH ×4 (08:00→21:00)
[2017-07-18] MEDS: RESP: ALBUTEROL 2.5 MG/IPRATROPIUM 0.5 MG NEB (SCH) NEB (08:25)
[2017-07-18] MEDS: MULTIVITAMINS/MINERALS THERAPEUTIC TAB PO SCH (08:45)
[2017-07-18] MEDS: MAGNESIUM HYDROXIDE SUSP 30 ML CUP PO SCH (08:45)
[2017-07-18] MEDS: ASPIRIN 81 MG CHEW TAB PO SCH (08:45)
[2017-07-18] MEDS: AMIODARONE 200 MG TAB PO SCH ×2 (08:45→21:10)
[2017-07-18] MEDS: amLODIPine BESYLATE 5 MG TAB PO SCH (08:45)
[2017-07-18] MEDS: SODIUM CHLORIDE 0.9% FLUSH 10 ML FLUSH IV FLUSH SCH ×2 (08:45→21:00)
[2017-07-18] MEDS: DOCUSATE SODIUM 100 MG CAP PO SCH ×2 (08:45→21:10)
[2017-07-18] MEDS: BUDESONIDE-FORMOTEROL 160/4.5 MCG INHALER INH SCH ×2 (08:46→21:11)
[2017-07-18] MEDS: oxyCODONE/ACETAMINOPHEN 7.5 MG/325 MG TAB PO PRN (08:55)
[2017-07-18] MEDS ORDERED: ACETAMINOPHEN 325 MG TAB PO PRN (10:00)
[2017-07-18] MEDS ORDERED: ACETAMINOPHEN/HYDROcodone 325 MG/5 MG TAB PO PRN (10:00)
[2017-07-18] MEDS ORDERED: KETOROLAC TROMETHAMINE 30 MG/ML (IVP) VIAL IV PUSH PRN (10:00)
[2017-07-18] MEDS: POLYETHYLENE GLYCOL 17 GM PKG PO SCH (11:53)
--- NOTE | 2017-07-18 15:35 | PD.CAR.PN ---
CVT Progress Note Subjective/Hospital Course: A 56-year-old male with history of hypertension, diabetes and gout, who has not been taking his medication in the last 3 months, apparently has been having problems with his physician and followup, progressive shortness of breath for the past 1 week, also some lower extremity edema, presented to the emergency department and was given some nitro without much relief. His D-dimer is mildly elevated. He had a CTA of the chest which ruled out a pulmonary embolus; however, he does have some significant emphysema. He also has a small 7-mm nodule in the right apex that needs to be followed up in 3 months. He underwent echocardiogram showing an ejection fraction of 50-55%, severe mitral valve regurgitation; mitral valve regurgitation jet is directed anteriorly. 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 He then underwent cardiac catheterization today, which showed fairly angiographically normal coronaries, mildly reduced cardiac output of 4.2 with an index of 2.2. We were consulted to evaluate for mitral valve repair versus replacement. PAST MEDICAL HISTORY: Hypertension, diabetes, gout. 07/12 c/o of dypn / sat 95% on room air now scheduled for surgery on Saturday07/14/17 For MV repair or replacement tomorrow 07/15 surgery: Minimally invasive MV repair with complex reconstruction of the posterior leaflet, ring annuloplasty with a 30 Toro ring Percutaneous ultrasound-guided cannulation let femoral artery and vein with Perclose closure of the artery extubated after surgery 2500cc crystalloid, 750cc cell saver / + steroids 07/16 remains on 8L face mask, weaned off precedex at 5 am , still very sleepy, painful oozing to right chest wall incision , no improved , + wires chest tube to wall suction , no air leak , CAR small apical PTX PLT 79 will need 6 weeks of coumadin 2-2.5 transfer out of ICU , OT/PT 07/17 chest tubes dc remains in NSR pt to start coumadin 5mg today for 6 weeks pain med adjusted OOB ambulate, wean 02 07/18 pt very sleepy today will decrease pain meds not sleeping well at night remains on aggressive pulm toileting babak in NSR Objective: GENERAL: A&O x 3 SKIN: Warm and dry. prevena to chest HEAD: Normocephalic. EYES: No scleral icterus. No injection or drainage. NECK: Supple, trachea midline. No JVD or lymphadenopathy. CARDIOVASCULAR: Regular rate and rhythm without murmurs, gallops, or rubs. RESPIRATORY: Breath sounds equal bilaterally. No accessory muscle use. diminished in bases GASTROINTESTINAL: Abdomen soft, non-tender, nondistended. MUSCULOSKELETAL: No cyanosis, or edema. BACK: Nontender without obvious deformity. No CVA tenderness. Vital Signs Date Time Temp Pulse Resp B/P (MAP) Pulse Ox O2 Delivery O2 Flow Rate FiO2 07/18/17 14:04 94 Nasal Cannula 2.00 07/18/17 13:01 58 07/18/17 12:00 60 07/18/17 11:45 95 Nasal Cannula 3.00 07/18/17 11:45 97.9 60 18 122/62 (82) 93 07/18/17 11:00 59 07/18/17 10:00 58 07/18/17 09:00 56 07/18/17 08:30 97.8 57 18 134/71 (92) 95 07/18/17 08:30 95 Nasal Cannula 3.00 07/18/17 08:00 60 07/18/17 07:01 65 07/18/17 06:00 72 07/18/17 05:26 64 07/18/17 03:00 98.3 63 18 131/74 (93) 98 07/18/17 03:00 98 Nasal Cannula 2.00 07/18/17 03:00 65 07/17/17 23:00 98.3 59 18 143/74 (97) 98 07/17/17 23:00 98 Nasal Cannula 2.00 07/17/17 23:00 18 07/17/17 23:00 59 07/17/17 20:46 97 Nasal Cannula 2.00 07/17/17 19:00 97 Nasal Cannula 2.00 07/17/17 19:00 54 07/17/17 19:00 97.2 54 18 126/71 (89) 97 07/17/17 18:00 64 07/17/17 17:00 72 07/17/17 16:00 56 07/17/17 15:33 70 07/17/17 15:33 95 Nasal Cannula 2.00 07/17/17 15:33 98.1 55 16 108/57 (74) 98 Labs: Laboratory Tests Test 07/18/17 04:41 Prothrombin Time 10.3 SEC (9.8-11.6) Prothromb Time International Ratio 1.0 RATIO Blood Urea Nitrogen 31 MG/DL (7-18) Creatinine 0.89 MG/DL (0.60-1.30) Random Glucose 99 MG/DL (74-106) Calcium Level 8.5 MG/DL (8.5-10.1) Magnesium Level 2.3 MG/DL (1.5-2.5) Sodium Level 137 MEQ/L (136-145) Potassium Level 4.0 MEQ/L (3.5-5.1) Chloride Level 102 MEQ/L (98-107) Carbon Dioxide Level 30.5 MEQ/L (21.0-32.0) Anion Gap 5 MEQ/L (5-15) Estimat Glomerular Filtration Rate 107 ML/MIN (>89) Result Diagram: 07/17/17 0555 07/18/17 0441 Telemetry: NSR (1) Diabetes Plan: HGB aic 5.6 (2) Severe mitral regurgitation by prior echocardiogram Plan: s/p MV ring leave chest tube in pulm toileting gentle diuresis continue to hold BB 2/2 ismael cardia, on norvasc amiodarone HR now 70's decrease pain meds OOB , ambulate eval for rehab vs C (3) Gout (4) S/P MVR (mitral valve replacement) Plan: chest tube removed start coumadin 5 mg , INR goal 2.0-2.5 Problem Qualifiers (1) Diabetes: Qualified Codes: E11.9 - Type 2 diabetes mellitus without complications; Z79.4 - roasterman (current) use of insulin Tere Vang Jul 18, 2017 15:35
[2017-07-18] MEDS: WARFARIN SOD 5 MG TAB PO SCH (17:44)
[2017-07-18] MEDS: TAMSULOSIN HCL 0.4 MG CAP PO SCH (21:10)
[2017-07-18] MEDS: SENNOSIDES 8.6 MG TAB PO SCH (21:10)
[2017-07-18 22:39] LABS: BILIRUBIN, URINE NEG (NEG); BLOOD, URINE SMALL (NEG); GLUCOSE,URINE NEG (NEG); KETONE, URINE NEG (NEG); MUCUS URINE FEW /lpf (OCC); NITRITE,URINE NEG (NEG); PH, URINE 7.5 (5.0-8.5); SQUAMOUS EPITHELIAL CELL URINE 1 /hpf (0-5); URINE COLOR YELLOW (YELLW/STRAW); URINE LEUKOCYTE ESTERASE NEG (NEG)
[2017-07-19] VITALS (9 sets, daily range): BP systolic 119–149; BP diastolic 74–81; PULSE 62–66; RESP 16–18; TEMP 97.8–98.8; O2SAT 96–99
[2017-07-19 04:55] LABS: INTERNATIONAL NORMALIZED RATIO 1.5 RATIO; PROTHROMBIN TIME - PATIENT 15.3 SEC (9.8-11.6)
[2017-07-19] MEDS: PANTOPRAZOLE SOD 40 MG DELAYED RELEASE TAB PO SCH (06:27)
[2017-07-19] MEDS: INSULIN ASPART SUPPLEMENTAL SCALE SQ SCH (08:00)
[2017-07-19] MEDS ORDERED: PILL SPLITTER OTHER PRN (08:45)
[2017-07-19] MEDS ORDERED: AMIODARONE 200 MG TAB PO SCH (09:00)
[2017-07-19] MEDS ORDERED: METOPROLOL TARTRATE 25 MG TAB PO SCH (09:00)
[2017-07-19] MEDS: MAGNESIUM HYDROXIDE SUSP 30 ML CUP PO SCH (09:20)
[2017-07-19] MEDS: POLYETHYLENE GLYCOL 17 GM PKG PO SCH (09:20)
[2017-07-19] MEDS: ASPIRIN 81 MG CHEW TAB PO SCH (09:21)
[2017-07-19] MEDS: DOCUSATE SODIUM 100 MG CAP PO SCH (09:21)
[2017-07-19] MEDS: MULTIVITAMINS/MINERALS THERAPEUTIC TAB PO SCH (09:22)
[2017-07-19] MEDS: amLODIPine BESYLATE 5 MG TAB PO SCH (09:22)
[2017-07-19] MEDS: BUDESONIDE-FORMOTEROL 160/4.5 MCG INHALER INH SCH (09:22)
[2017-07-19] MEDS: SODIUM CHLORIDE 0.9% FLUSH 10 ML FLUSH IV FLUSH SCH (09:23)
[2017-07-19] MEDS ORDERED: WALKER WHEELS/F1 MIS (12:30)
[2017-07-19] MEDS ORDERED: DOCU1CAP39 PO (12:36)
[2017-07-19] MEDS ORDERED: Budeson-Formot 160-4.5 Mcg Inh INH (12:36)
[2017-07-19] MEDS ORDERED: AMIO200T PO (12:36)
[2017-07-19] MEDS ORDERED: COUM5TAB PO (12:36)
[2017-07-19] MEDS ORDERED: METO25TA3 PO (12:36)
[2017-07-19] MEDS ORDERED: HYDR-3516 PO (12:36)
[2017-07-19] MEDS ORDERED: AMLO5 PO (12:36)
[2017-07-19] MEDS ORDERED: THERM PO (12:36)
[2017-07-19] MEDS ORDERED: ASPI81 PO (12:36)
[2017-07-19] MEDS ORDERED: ALBU6.7H INH (12:41)
--- NOTE | 2017-07-19 12:50 | HHI.DS ---
Discharge Summary Admission Date Jul 09, 2017 at 09:50 Discharge Date: Jul 19, 2017 Admitting Diagnosis chest pain (1) S/P MVR (mitral valve replacement) Diagnosis: Secondary ICD Codes: Z95.2 - Presence of prosthetic heart valve (2) Diastolic CHF Diagnosis: Principal ICD Codes: I50.30 - Unspecified diastolic (congestive) heart failure (3) Anemia Diagnosis: Principal ICD Codes: D64.9 - Anemia, unspecified Status: Acute (4) Gout Diagnosis: Principal ICD Codes: M10.9 - Gout, unspecified Status: Chronic (5) Diabetes Diagnosis: Principal ICD Codes: E11.9 - Type 2 diabetes mellitus without complications Status: Chronic Procedures 07/15 Minimally invasive MV repair with complex reconstruction of the posterior leaflet, ring annuloplasty with a 30 Toro ring Percutaneous ultrasound-guided cannulation let femoral artery and vein with Perclose closure of the artery SHAYAN Brief History A 56-year-old male with history of hypertension, diabetes and gout, who has not been taking his medication in the last 3 months, apparently has been having problems with his physician and followup, progressive shortness of breath for the past 1 week, also some lower extremity edema, presented to the emergency department and was given some nitro without much relief. His D-dimer is mildly elevated. He had a CTA of the chest which ruled out a pulmonary embolus; however, he does have some significant emphysema. He also has a small 7-mm nodule in the right apex that needs to be followed up in 3 months. He underwent echocardiogram showing an ejection fraction of 50-55%, severe mitral valve regurgitation; mitral valve regurgitation jet is directed anteriorly. 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 He then underwent cardiac catheterization today, which showed fairly angiographically normal coronaries, mildly reduced cardiac output of 4.2 with an index of 2.2. We were consulted to evaluate for mitral valve repair versus replacement. PAST MEDICAL HISTORY: Hypertension, diabetes, gout. CBC/BMP: 07/17/17 0555 07/18/17 0441 Significant Findings Laboratory Tests Test 07/17/17 05:55 07/18/17 04:41 07/18/17 21:30 07/19/17 04:05 Red Blood Count 4.05 MIL/MM3 (4.50-5.90) Hemoglobin 11.8 GM/DL (13.0-17.0) Hematocrit 35.2 % (39.0-51.0) Platelet Count 111 TH/MM3 (150-450) Neutrophils (%) (Auto) 77.3 % (16.0-70.0) Monocytes (%) (Auto) 9.7 % (0.0-8.0) Blood Urea Nitrogen 36 MG/DL (7-18) 31 MG/DL (7-18) Estimat Glomerular Filtration Rate 87 ML/MIN (>89) Urine Protein 30 mg/dL (NEG-TRACE) Urine Occult Blood SMALL (NEG) Urine RBC 4 /hpf (0-3) Urine Mucus FEW /lpf (OCC) Prothrombin Time 15.3 SEC (9.8-11.6) Imaging Last Impressions Chest X-Ray 07/18/17 0600 Signed Impressions: Service Date/Time: June 04:04 - CONCLUSION: 1. The lungs are better aerated with minimal bibasilar densities. 2. Small right apical pneumothorax not significantly changed. Erasmo Nails MD Carotid Artery Ultrasound 07/12/17 0000 Signed Impressions: Service Date/Time: Wednesday, July 12, 2017 09:27 - CONCLUSION: 1. Minimal carotid plaque without significant flow-limiting stenosis. 2. Antegrade vertebral artery flow bilaterally. Yann Camacho MD CT Angiography 07/09/17 0952 Signed Impressions: Service Date/Time: Sunday, July 09, 2017 10:31 - CONCLUSION: 1. No evidence of pulmonary embolism. 2. 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 3. Nonspecific 7 mm nodular infiltrate right apex. Recommend followup noncontrast CT thorax in 3 months after appropriate medical therapy. Cecil Soriano MD PE at Discharge GENERAL: A&O x 3 SKIN: Warm and dry. prevena dressing to chest HEAD: Normocephalic. EYES: No scleral icterus. No injection or drainage. NECK: Supple, trachea midline. No JVD or lymphadenopathy. CARDIOVASCULAR: Regular rate and rhythm without murmurs, gallops, or rubs. RESPIRATORY: Breath sounds equal bilaterally. No accessory muscle use. GASTROINTESTINAL: Abdomen soft, non-tender, nondistended. MUSCULOSKELETAL: No cyanosis, or edema. BACK: Nontender without obvious deformity. No CVA tenderness. Hospital Course 07/12 c/o of dypnea / 02 sat 95% on room air now scheduled for surgery on Saturday07/14/17 For MV repair or replacement tomorrow 07/15 surgery: Minimally invasive MV repair with complex reconstruction of the posterior leaflet, ring annuloplasty with a 30 Hughes ring Percutaneous ultrasound-guided cannulation let femoral artery and vein with Perclose closure of the artery extubated after surgery 2500cc crystalloid, 750cc cell saver / + steroids 07/16 remains on 8L face mask, weaned off precedex at 5 am , still very sleepy, painful oozing to right chest wall incision , no improved , + wires chest tube to wall suction , no air leak , CAR small apical PTX PLT 79 will need 6 weeks of coumadin 2-2.5 transfer out of ICU , OT/PT 07/17 chest tubes dc remains in NSR pt to start coumadin 5mg today for 6 weeks pain med adjusted OOB ambulate, wean 02 07/18 pt very sleepy today will decrease pain meds not sleeping well at night remains on aggressive pulm toileting 07/19 on room air stable for dc today INR 1.5 goal 2-2.5 for 6 weeks 5mg M-W-F 2.5mg Gvpr-Hctb-Moq-Sun Pt Condition on Discharge: Good Discharge Disposition: Disch w/ Home Health Serv Discharge Instructions DIET: Follow Instructions for: Heart Healthy Diet, Diabetic Diet, Coumadin ( Warfarin) Diet Activities you can perform: Full Weight Bearing, Shower Only-No Bath Activities to avoid: Strenuous Activity, Driving Additional Activity Instructio: no lifting > 8lbs or gallon of milk Follow up Referrals: Cardiology, Interventional - 4 Weeks with Clarence Villegas MD PCP Follow-up - 1 Week with Lemuel Victor MD, [facility] - 2 Weeks with Tere Vang New Orders: 2D ECHO - 2 Weeks BASIC METABOLIC PROF - 2 Weeks CBC NO DIFF - 2 Weeks PT/INR - 2-3 Days X-RAY CHEST PA & LAT - 2 Weeks New Medications: Albuterol 6.7 GM Inh (Proventil Hfa 6.7 GM Inh) 90 Mcg/Act Aer 2 PUFF INH Q6H PRN for SHORTNESS OF BREATH, #1 INHALER 2 Refills Walker with Front Wheels (Walker with Front Wheels) 1 Mis Mis EA .XX DIRECTED, #1 0 Refills Amiodarone (Amiodarone) 200 Mg Tab 200 MG PO Q12HR for heart rhythm, #28 TAB 0 Refills Amlodipine (Norvasc) 5 Mg Tab 5 MG PO DAILY for Blood Pressure Management, #30 TAB 2 Refills Aspirin (Tgt Aspirin) 81 Mg Chw 81 MG PO DAILY for Blood Clot Prevention, #30 EA 2 Refills Docusate Sodium (Dok) 100 Mg Cap 100 MG PO BID for Constipation, #60 CAP 0 Refills Hydrocodone/Acetaminophen (Hydrocodone-Acetamin 5-325 mg) 5 Mg-325 Mg Tablet 1 TAB PO Q4HR PRN for PAIN SCALE 5 TO 10, #30 TAB 0 Refills Metoprolol Tartrate (Metoprolol Tartrate) 25 Mg Tab 12.5 MG PO Q12HR for Blood Pressure Management, #30 TAB 2 Refills hold systolic BP<100 HR<60 Multiple Vitamins W/ Minerals (Thera M Plus) 1 Tab 1 TAB PO DAILY for multi vitamin, #30 TAB 2 Refills Warfarin (Coumadin) 5 Mg Tab 5 MG PO DAILY@1600 for Blood Clot Prevention, #30 TAB 1 Refill INR goal 2-2.5/ hold for INR>3.5 5mg -- 2.5 - -Sat-Sat [Budeson-Formot 160-4.5 Mcg Inh] () 60 PUFF AERO 2 PUFF INH Q12HR, #1 INHALER 1 Refill Continued Medications: Tamsulosin (Flomax) 0.4 Mg Cap 0.4 MG PO HS for Manage Prostate Problems, #30 CAP 0 Refills Discontinued Medications: [Unk Bp Pill] () DAILY Tere Vang Jul 19, 2017 12:50
== END 2017-07-19 14:05 | disposition home health service (06) | DRG 217 ==
LOC: NEPC 05:33 → NEDA 09:35 → OBSVTOIN 09:50 → NEDH 16:38 → HCPC 17:50 → HCIS 07-15 07:14 → HCVI 07-15 14:00 → HCPC 07-16 10:20
PROVIDERS: ADMIT Thoracic Surgery (Cardiothoracic Vascular Surgery); ATTEND Thoracic Surgery (Cardiothoracic Vascular Surgery)
PROC: B2111ZZ Fluoroscopy of Multiple Coronary Arteries using Low Osmolar Contrast (ICD-10-PCS; 2017-07-11)
PROC: 4A023N8 Measurement of Cardiac Sampling and Pressure, Bilateral, Percutaneous Approach (ICD-10-PCS; principal; 2017-07-11 10:30)
PROC: 02UG0JZ Supplement Mitral Valve with Synthetic Substitute, Open Approach (ICD-10-PCS; 2017-07-15)
PROC: B246ZZ4 Ultrasonography of Right and Left Heart, Transesophageal (ICD-10-PCS; 2017-07-15)
PROC: 5A1221Z Performance of Cardiac Output, Continuous (ICD-10-PCS; 2017-07-15)
PROC: 02QG0ZZ Repair Mitral Valve, Open Approach (ICD-10-PCS; 2017-07-15 07:15)
DX: I08.1 Rheumatic disorders of both mitral and tricuspid valves (principal); I47.2 Ventricular tachycardia; I27.20 Pulmonary hypertension, unspecified; I50.32 Chronic diastolic (congestive) heart failure; I11.0 Hypertensive heart disease with heart failure; J93.9 Pneumothorax, unspecified; N39.0 Urinary tract infection, site not specified; R63.4 Abnormal weight loss; E11.9 Type 2 diabetes mellitus without complications; M10.9 Gout, unspecified; F17.210 Nicotine dependence, cigarettes, uncomplicated; J44.9 Chronic obstructive pulmonary disease, unspecified; R00.2 Palpitations; D64.9 Anemia, unspecified; F19.10 Other psychoactive substance abuse, uncomplicated; I49.3 Ventricular premature depolarization; R91.1 Solitary pulmonary nodule; B95.2 Enterococcus as the cause of diseases classified elsewhere; Z79.4 Long term (current) use of insulin; Z91.19 Patient's noncompliance with other medical treatment and regimen
CPT/HCPCS: 71045; 71046; 71275; 76937; 80048; 80053; 80061; 80307; 81001; 82550; 82552; 82810; 82948; 83036; 83735; 83880; 84484; 85002; 85025; 85027; 85379; 85610; 85730; 86850; 86900; 86901; 86920; 87040; 87077; 87086; 87186; 87641; 88305; 93005; 93306; 93312; 93318; 93320; 93325; 93460; 93880; 94002; 94060; 94150; 94618; 94640; 94667; 94668; 99152; 99153; C1769; C1893; C1898; C9248; C9290; J0131; J0171; J0330; J0690; J0696; J1100; J1644; J1815; J1817; J1940; J2150; J2250; J2270; J2370; J2405; J2710; J2720; J2930; J3010; J3475; J3480; J7040; J7050; J7120; J7613; P9047; Q9967

== ENCOUNTER 2017-10-06 15:49 | Observation (INO) | payer MEDICAID ==
[~2017-10-06] VITALS: Ht 185.4 cm; Wt 66.8 kg
[2017-10-06] VITALS (7 sets, daily range): BP systolic 137–172; BP diastolic 72–97; PULSE 75–107; RESP 17–18; TEMP 98.4–98.6; O2SAT 98–100
[~2017-10-06 15:49] MED LIST changes: +ALBU6.7H INH; +AMIO200T PO; +AMLO5 PO; +ASPI81 PO; +Budeson-Formot 160-4.5 Mcg Inh INH; -CIPR500T2 PO; +COUM5TAB PO; +DOCU1CAP39 PO; +HYDR-3516 PO; +METO25TA3 PO; +THERM PO; +WALKER WHEELS/F1 MIS
--- NOTE | 2017-10-06 16:12 | PD ---
HPI Chief Complaint: Chest Pain Time Seen by Provider: 15:55 Travel History International Travel<30 days: No Contact w/Intl Traveler<30days: No Traveled to known affect area: No History of Present Illness HPI The patient is a 57-year-old -[place] male who presents to the emergency department via private vehicle for chest pain. The patient notes 1 week history of right-sided chest pain that is worse with palpation, described as pressure and "itching ". The patient denies any trauma to the right chest wall, does note mild shortness of breath. The patient does have a history of previous mitral valve repair several months ago by Dr. Valente. The patient denies any significant lower extremity edema, nausea, vomiting, or diaphoresis. He does complain of chest pain, slightly worse with exertion. He also complains of chest pain on the right side which is sharp and itching. The patient does have a history of drug use, states that his last marijuana joint might have been laced with cocaine. Symptoms are moderate, there are no current alleviating or exacerbating factors. PFSH Past Medical History Asthma: No Autoimmune Disease: No Cancer: No Cardiovascular Problems: Yes COPD: No Diabetes: Yes (type 2) Endocrine: Yes GERD: No Genitourinary: No Hepatitis: No Hiatal Hernia: No Hypertension: Yes Immune Disorder: No Musculoskeletal: No Neurologic: No Psychiatric: No Reproductive: No Respiratory: No Sleep Apnea: No Ulcer: No Past Surgical History Genitourinary Surgery: No Other Surgery: No Social History Alcohol Use: Yes Tobacco Use: Yes Substance Use: Yes Allergies-Medications (Allergen,Severity, Reaction): Coded Allergies: No Known Allergies (Verified Allergy, Unknown, 07/09/17) Reported Meds & Prescriptions Reported Meds & Active Scripts Active Proventil Hfa 6.7 GM Inh (Albuterol Sulfate) 90 Mcg/Act Aer 2 Puff INH Q6H PRN Thera M Plus (Multivitamins/Minerals Therapeutic) 1 Tab 1 Tab PO DAILY Dok (Docusate Sodium) 100 Mg Cap 100 Mg PO BID [Budeson-Formot 160-4.5 Mcg Inh] 60 PUFF Aero 2 Puff INH Q12HR Hydrocodone-Acetamin 5-325 mg (Hydrocodone/Acetaminophen) 5 Mg-325 Mg Tablet 1 Tab PO Q4HR PRN Tgt Aspirin (Aspirin) 81 Mg Chw 81 Mg PO DAILY Norvasc (Amlodipine Besylate) 5 Mg Tab 5 Mg PO DAILY Metoprolol Tartrate 25 Mg Tab 12.5 Mg PO Q12HR hold systolic BP<100 HR<60 Amiodarone (Amiodarone HCl) 200 Mg Tab 200 Mg PO Q12HR Coumadin (Warfarin) 5 Mg Tab 5 Mg PO DAILY@1600 INR goal 2-2.5/ hold for INR>3.5 5mg M-- 2.5 - -Sat-Sun Walker with Front Wheels (Device) 1 Mis Mis Ea .XX DIRECTED Flomax (Tamsulosin HCl) 0.4 Mg Cap 0.4 Mg PO HS Review of Systems Except as stated in HPI: all other systems reviewed are Neg General / Constitutional: No: Fever HENT: No: Lightheadedness Cardiovascular: Positive: Chest Pain or Discomfort, Dyspnea on exertion, No: Diaphoresis Respiratory: Positive: Shortness of Breath Gastrointestinal: No: Nausea, Vomiting Musculoskeletal: No: Weakness, Edema Neurologic: No: Dizziness Psychiatric: Positive: Substance Abuse Physical Exam Narrative GENERAL: Awake, alert, nontoxic-appearing 57-year-old male who appears his stated age and is in no acute respiratory distress. SKIN: Focused skin assessment warm/dry. HEAD: Atraumatic. Normocephalic. EYES: No injection or drainage. ENT: No nasal bleeding or discharge. Mucous membranes pink and moist. NECK: Trachea midline. No JVD. CARDIOVASCULAR: Regular rate and rhythm. No murmur appreciated. Palpation the right chest wall reproduces symptoms. RESPIRATORY: No accessory muscle use. Clear to auscultation. Breath sounds equal bilaterally. GASTROINTESTINAL: Abdomen soft, non-tender, nondistended. MUSCULOSKELETAL: No obvious deformities. No clubbing. No cyanosis. No edema. NEUROLOGICAL: Awake and alert. No obvious cranial nerve deficits. Motor grossly within normal limits. Normal speech. Nonfocal. PSYCHIATRIC: Appropriate mood and affect; insight and judgment normal. Data Data Last Documented VS Vital Signs Date Time Temp Pulse Resp B/P (MAP) Pulse Ox O2 Delivery O2 Flow Rate FiO2 10/06/17 17:30 97 18 149/96 (113) 100 Room Air 10/06/17 16:05 98.6 Orders Orders Electrocardiogram (10/06/17 16:05) B-Type Natriuretic Peptide (10/06/17 16:05) Ckmb (Isoenzyme) Profile (10/06/17 16:05) Complete Blood Count With Diff (10/06/17 16:05) Comprehensive Metabolic Panel (10/06/17 16:05) Magnesium (Mg) (10/06/17 16:05) Prothrombin Time / Inr (Pt) (10/06/17 16:05) Act Partial Throm Time (Ptt) (10/06/17 16:05) Troponin I (10/06/17 16:05) Lipase (10/06/17 16:05) Ecg Monitoring (10/06/17 16:05) Bilateral Bp Monitoring (10/06/17 16:05) Iv Access Insert/Monitor (10/06/17 16:05) Oximetry (10/06/17 16:05) Oxygen Administration (10/06/17 16:05) Aspirin Chew (Aspirin Chew) (10/06/17 16:15) Morphine Inj (Morphine Inj) (10/06/17 16:15) Sodium Chloride 0.9% Flush (Ns Flush) (10/06/17 16:15) Sodium Chlorid 0.9% 500 Ml Inj (Ns 500 M (10/06/17 16:15) Chest, Pa & Lat (10/06/17 16:05) Alcohol (Ethanol) (10/06/17 16:05) Drug Screen, Random Urine (10/06/17 16:05) CKMB (10/06/17 16:00) CKMB% (10/06/17 16:00) Nitroglycerin 2% Oint (Nitroglycerin 2% (10/06/17 17:30) Labs Laboratory Tests Test 10/06/17 16:00 White Blood Count 4.2 TH/MM3 Red Blood Count 4.83 MIL/MM3 Hemoglobin 13.9 GM/DL Hematocrit 42.6 % Mean Corpuscular Volume 88.3 FL Mean Corpuscular Hemoglobin 28.7 PG Mean Corpuscular Hemoglobin Concent 32.5 % Red Cell Distribution Width 14.5 % Platelet Count 157 TH/MM3 Mean Platelet Volume 8.9 FL Neutrophils (%) (Auto) 53.6 % Lymphocytes (%) (Auto) 33.7 % Monocytes (%) (Auto) 8.7 % Eosinophils (%) (Auto) 3.1 % Basophils (%) (Auto) 0.9 % Neutrophils # (Auto) 2.2 TH/MM3 Lymphocytes # (Auto) 1.4 TH/MM3 Monocytes # (Auto) 0.4 TH/MM3 Eosinophils # (Auto) 0.1 TH/MM3 Basophils # (Auto) 0.0 TH/MM3 CBC Comment DIFF FINAL Differential Comment Prothrombin Time 11.4 SEC Prothromb Time International Ratio 1.1 RATIO Activated Partial Thromboplast Time 27.1 SEC Blood Urea Nitrogen 21 MG/DL Creatinine 1.33 MG/DL Random Glucose 107 MG/DL Total Protein 8.6 GM/DL Albumin 2.5 GM/DL Calcium Level 8.4 MG/DL Magnesium Level 1.9 MG/DL Alkaline Phosphatase 63 U/L Aspartate Amino Transf (AST/SGOT) 47 U/L Alanine Aminotransferase (ALT/SGPT) 22 U/L Total Bilirubin 0.5 MG/DL Sodium Level 143 MEQ/L Potassium Level 4.0 MEQ/L Chloride Level 111 MEQ/L Carbon Dioxide Level 22.4 MEQ/L Anion Gap 10 MEQ/L Estimat Glomerular Filtration Rate 67 ML/MIN Total Creatine Kinase 214 U/L Creatine Kinase MB 2.7 NG/ML Troponin I 0.21 NG/ML B-Type Natriuretic Peptide 2549 PG/ML Lipase 201 U/L Ethyl Alcohol Level LESS THAN 3 MG/DL MDM Medical Decision Making Medical Screen Exam Complete: Yes Emergency Medical Condition: Yes Medical Record Reviewed: Yes Interpretation(s) EKG reveals sinus tachycardia with a heart rate of 102. Inverted T waves noted in lead II, III, aVF, V4, V5, and V6. Q-wave noted in lead V1 and V2. Last Impressions Chest X-Ray 10/06/17 1605 Signed Impressions: CONCLUSION: No acute cardiopulmonary disease. Laboratory Tests Test 10/06/17 16:00 White Blood Count 4.2 TH/MM3 Red Blood Count 4.83 MIL/MM3 Hemoglobin 13.9 GM/DL Hematocrit 42.6 % Mean Corpuscular Volume 88.3 FL Mean Corpuscular Hemoglobin 28.7 PG Mean Corpuscular Hemoglobin Concent 32.5 % Red Cell Distribution Width 14.5 % Platelet Count 157 TH/MM3 Mean Platelet Volume 8.9 FL Neutrophils (%) (Auto) 53.6 % Lymphocytes (%) (Auto) 33.7 % Monocytes (%) (Auto) 8.7 % Eosinophils (%) (Auto) 3.1 % Basophils (%) (Auto) 0.9 % Neutrophils # (Auto) 2.2 TH/MM3 Lymphocytes # (Auto) 1.4 TH/MM3 Monocytes # (Auto) 0.4 TH/MM3 Eosinophils # (Auto) 0.1 TH/MM3 Basophils # (Auto) 0.0 TH/MM3 CBC Comment DIFF FINAL Differential Comment Prothrombin Time 11.4 SEC Prothromb Time International Ratio 1.1 RATIO Activated Partial Thromboplast Time 27.1 SEC Blood Urea Nitrogen 21 MG/DL Creatinine 1.33 MG/DL Random Glucose 107 MG/DL Total Protein 8.6 GM/DL Albumin 2.5 GM/DL Calcium Level 8.4 MG/DL Magnesium Level 1.9 MG/DL Alkaline Phosphatase 63 U/L Aspartate Amino Transf (AST/SGOT) 47 U/L Alanine Aminotransferase (ALT/SGPT) 22 U/L Total Bilirubin 0.5 MG/DL Sodium Level 143 MEQ/L Potassium Level 4.0 MEQ/L Chloride Level 111 MEQ/L Carbon Dioxide Level 22.4 MEQ/L Anion Gap 10 MEQ/L Estimat Glomerular Filtration Rate 67 ML/MIN Total Creatine Kinase 214 U/L Creatine Kinase MB 2.7 NG/ML Troponin I 0.21 NG/ML B-Type Natriuretic Peptide 2549 PG/ML Lipase 201 U/L Ethyl Alcohol Level LESS THAN 3 MG/DL Differential Diagnosis Differential diagnosis includes acute coronary syndrome, STEMI, mitral valve regurgitation, flash pulmonary edema, congestive heart failure, costochondritis , peritonitis, myocarditis, pericardial effusion, pleural effusion, polysubstance abuse. Narrative Course IV was established, labs are drawn and sent, and the patient was placed on cardiac telemetry monitoring and continuous pulse oximetry monitoring. EKG was ordered and interpreted. Chest x-ray was obtained. I reviewed the patient's EMR, he had an essentially negative cardiac catheterization performed by Dr. Villegas in June 2017, just prior to having the mitral valve repaired by the cardiothoracic surgeon, Dr. Valente. The patient's BNP was greater than 2500, troponin was positive at 0.21. Therefore, the patient was placed on Nitropaste. The patient will be admitted to the on-call medical service, may benefit from echocardiogram and possible reevaluation by cardiology and or cardiothoracic surgeon, Dr. Valente. Physician Communication Physician Communication The on-call medical service was paged for admission. I discussed the patient with Dr. Rios who agrees with admission. Diagnosis Primary Impression: Chest pain Qualified Codes: R07.9 - Chest pain, unspecified Additional Impressions: SOB (shortness of breath) S/P MVR (mitral valve replacement) Elevated troponin Admitting Information Admitting Physician Requests: Admit Condition: Stable Tim Crenshaw MD Oct 06, 2017 16:12
[2017-10-06] MEDS ORDERED: MORPHINE SULFATE 4 MG/ML INJ IV PUSH ONE (16:15)
[2017-10-06] MEDS ORDERED: SODIUM CHLORIDE 0.9% FLUSH 10 ML FLUSH IVF PRN (16:15)
[2017-10-06] MEDS ORDERED: SODIUM CHLORID 0.9% 500 ML INJ 500 ML IV ONE (16:15)
[2017-10-06] MEDS ORDERED: ASPIRIN 81 MG CHEW TAB PO ONE (16:15)
[2017-10-06 16:31] LABS: AUTOMATED NEUTROPHIL # 2.2 TH/MM3 (1.8-7.7); BASOPHIL % 0.9 % (0.0-2.0); EOSINOPHIL # 0.1 TH/MM3 (0-0.4); EOSINOPHIL % 3.1 % (0.0-4.0); HEMATOCRIT 42.6 % (39.0-51.0); HEMOGLOBIN 13.9 GM/DL (13.0-17.0); LYMPH % 33.7 % (9.0-44.0); LYMPHOCYTE # 1.4 TH/MM3 (1.0-4.8); MEAN CELL VOLUME 88.3 FL (80.0-100.0); MEAN CORPUSCULAR HEMOGLOBIN 28.7 PG (27.0-34.0); MEAN CORPUSCULAR HGB CONC 32.5 % (32.0-36.0); MEAN PLATELET VOLUME 8.9 FL (7.0-11.0); MONO % 8.7 % (0.0-8.0); MONOCYTE # 0.4 TH/MM3 (0-0.9); NEUT % 53.6 % (16.0-70.0); PLATELET COUNT 157 TH/MM3 (150-450); RED BLOOD COUNT 4.83 MIL/MM3 (4.50-5.90); RED CELL DISTRIBUTION WIDTH 14.5 % (11.6-17.2); WHITE BLOOD COUNT 4.2 TH/MM3 (4.0-11.0)
[2017-10-06 16:40] LABS: INTERNATIONAL NORMALIZED RATIO 1.1 RATIO; PROTHROMBIN TIME - PATIENT 11.4 SEC (9.8-11.6)
--- NOTE | 2017-10-06 16:54 | RADRPT ---
EXAM DATE: 10/06/2017 4:29 PM EDT AGE/SEX: 57 years / Male INDICATIONS: Bilateral chest pain and shortness of breath. CLINICAL DATA: This is the patient's initial encounter. Patient reports that signs and symptoms have been present for 1 week and indicates a pain score of 4/10. MEDICAL/SURGICAL HISTORY: None. . Cardiac stent. COMPARISON: [facility] – [place] CHEST PA & LAT, 07/09/2017. . FINDINGS: PA and lateral views of the chest demonstrate the lungs to be symmetrically aerated without evidence of mass, infiltrate or effusion. Mild prominence of the interstitial markings is similar to prior exa mination 07/09/2017. The cardiomediastinal contours are unremarkable. Osseous structures are intact. CONCLUSION: No acute cardiopulmonary disease. Electronically signed by: Brian Jenkins MD 10/06/2017 4:52 PM EDT
[2017-10-06 17:16] LABS: ALKALINE PHOSPHATASE 63 U/L (45-117); TOTAL BILIRUBIN ADULT 0.5 MG/DL (0.2-1.0); TOTAL PROTEIN 8.6 GM/DL (6.4-8.2); TROPONIN I 0.21 NG/ML (0.02-0.05)
[2017-10-06] MEDS ORDERED: NITROGLYCERIN 2% OINT 1 GM PACKET TOPICAL ONE (17:30)
[2017-10-06 17:52] LABS: ALBUMIN 2.5 GM/DL (3.4-5.0); ALT (GPT) 22 U/L (12-78); AST (GOT) 47 U/L (15-37); BICARBONATE 22.4 MEQ/L (21.0-32.0); BLOOD UREA NITROGEN 21 MG/DL (7-18); CALCIUM 8.4 MG/DL (8.5-10.1); CHLORIDE 111 MEQ/L (98-107); CREATININE 1.33 MG/DL (0.60-1.30); GLOMERULAR FILTRATION RATE 67 ML/MIN (>89); GLUCOSE,RANDOM 107 MG/DL (74-106); MAGNESIUM 1.9 MG/DL (1.5-2.5); SODIUM (NA) 143 MEQ/L (136-145)
[2017-10-06] MEDS ORDERED: IOHEXOL 350 MG/ML 50 ML BTL (for Cath Lab) OTHER ONE (18:07)
[2017-10-06] MEDS ORDERED: SODIUM CHLORIDE 0.9% FLUSH 10 ML FLUSH IV FLUSH PRN (18:30)
[2017-10-06] MEDS: HEPARIN SODIUM - SQ 10,000 UNITS/ML VIAL SQ SCH (20:00)
[2017-10-06] MEDS ORDERED: DEXTROSE 50% IN WATER 50 ML VIAL(D50) IV PUSH PRN (21:00)
[2017-10-06] MEDS ORDERED: TEMAZEPAM 15 MG CAP PO PRN (21:00)
[2017-10-06] MEDS: SODIUM CHLORIDE 0.9% FLUSH 10 ML FLUSH IV FLUSH SCH (21:00)
[2017-10-06] MEDS ORDERED: GLUCAGON 1 MG/ML VIAL OTHER PRN (21:00)
[2017-10-06] MEDS: INSULIN ASPART SUPPLEMENTAL SCALE SQ SCH (21:00)
--- NOTE | 2017-10-06 21:05 | HHI.HP ---
[facility] Primary [facility] Physician No Primary Care Physician Admission Diagnosis Dyspnea with chest pain, elevated troponin, history of mitral valve Diagnoses: Travel History International Travel<30 Days: No Contact w/Intl Traveler <30 Da: No Traveled to Known Affected Are: No History of Present Illness 57-year-old male with a past medical history significant for diabetes, hypertension and mitral valve repair on 07/15/17 presents to the emergency department for the evaluation of chest pain. The patient reports he has had chest pain for approximately 1 week. He states it radiates to his abdomen. He has bilateral lower extremity edema which has been worsening over the past 3 weeks. The patient reports that he took all of his medication and has not been able to refill it because he was lost to follow-up. Last time he took medication was approximately 3 weeks ago. Per cardiothoracic surgery the patient was to be on Coumadin 6 weeks and the patient reports completing that course of medication. The patient states that he uses marijuana and then says that he is around cocaine so his drug screen may be positive for cocaine however he tries not to do it. His troponin is elevated at 0.21. He reports continued chest pain. No shortness of breath. No nausea/vomiting. Intermittent abdominal pain. No lateralizing signs/symptoms. Review of Systems Except as stated in HPI: all other systems reviewed are Neg Past Family Social History Past Medical History diabetes, hypertension and mitral valve repair on 07/15/17 Past Surgical History Minimally invasive mitral valve repair Reported Medications Reported Meds & Active Scripts Active Proventil Hfa 6.7 GM Inh (Albuterol Sulfate) 90 Mcg/Act Aer 2 Puff INH Q6H PRN Thera M Plus (Multivitamins/Minerals Therapeutic) 1 Tab 1 Tab PO DAILY Dok (Docusate Sodium) 100 Mg Cap 100 Mg PO BID [Budeson-Formot 160-4.5 Mcg Inh] 60 PUFF Aero 2 Puff INH Q12HR Hydrocodone-Acetamin 5-325 mg (Hydrocodone/Acetaminophen) 5 Mg-325 Mg Tablet 1 Tab PO Q4HR PRN Tgt Aspirin (Aspirin) 81 Mg Chw 81 Mg PO DAILY Norvasc (Amlodipine Besylate) 5 Mg Tab 5 Mg PO DAILY Metoprolol Tartrate 25 Mg Tab 12.5 Mg PO Q12HR hold systolic BP<100 HR<60 Amiodarone (Amiodarone HCl) 200 Mg Tab 200 Mg PO Q12HR Coumadin (Warfarin) 5 Mg Tab 5 Mg PO DAILY@1600 INR goal 2-2.5/ hold for INR>3.5 5mg M-W- 2.5 Tu-Thur -Sat-Sun Walker with Front Wheels (Device) 1 Mis Mis Ea .XX DIRECTED Flomax (Tamsulosin HCl) 0.4 Mg Cap 0.4 Mg PO HS Allergies: Coded Allergies: No Known Allergies (Verified Allergy, Unknown, 07/09/17) Family History Negative for CAD/DM Social History Smokes approximately 5 cigarettes per day. Denies alcohol. Positive marijuana. Reports cocaine is used around him so that is why his drug test might be positive but that he does not use cocaine. Physical Exam Vital Signs Vital Signs Date Time Temp Pulse Resp B/P (MAP) Pulse Ox O2 Delivery O2 Flow Rate FiO2 10/06/17 18:38 75 17 172/72 (105) 100 Nasal Cannula 2.00 10/06/17 18:29 100 21 10/06/17 17:30 97 18 149/96 (113) 100 Room Air 10/06/17 16:16 75 17 97 Room Air 10/06/17 16:10 100 Room Air 10/06/17 16:10 100 Room Air 10/06/17 16:05 98.6 100 18 137/97 (110) 100 Physical Exam GENERAL: -[place] male sitting up in bed SKIN: No rashes, ecchymoses or lesions. Cool and dry. HEAD: Atraumatic. Normocephalic. No temporal or scalp tenderness. EYES: Pupils equal round and reactive. Extraocular motions intact. No scleral icterus. No injection or drainage. ENT: Nose without bleeding, purulent drainage or septal hematoma. Throat without erythema, tonsillar hypertrophy or exudate. Uvula midline. Airway patent. NECK: Trachea midline. No JVD or lymphadenopathy. Supple, nontender, no meningeal signs. CARDIOVASCULAR: Regular rate and rhythm without murmurs, gallops, or rubs. RESPIRATORY: Clear to auscultation. Breath sounds equal bilaterally. No wheezes , rales, or rhonchi. GASTROINTESTINAL: Abdomen soft, non-tender, nondistended. No hepato-splenomegaly , or palpable masses. No guarding. MUSCULOSKELETAL: Extremities without clubbing, cyanosis, or edema. No joint tenderness, effusion, or edema noted. No calf tenderness. NEUROLOGICAL: Awake and alert. Cranial nerves II through XII intact. Motor and sensory grossly within normal limits. Normal speech. Laboratory Laboratory Tests Test 10/06/17 16:00 White Blood Count 4.2 Red Blood Count 4.83 Hemoglobin 13.9 Hematocrit 42.6 Mean Corpuscular Volume 88.3 Mean Corpuscular Hemoglobin 28.7 Mean Corpuscular Hemoglobin Concent 32.5 Red Cell Distribution Width 14.5 Platelet Count 157 Mean Platelet Volume 8.9 Neutrophils (%) (Auto) 53.6 Lymphocytes (%) (Auto) 33.7 Monocytes (%) (Auto) 8.7 Eosinophils (%) (Auto) 3.1 Basophils (%) (Auto) 0.9 Neutrophils # (Auto) 2.2 Lymphocytes # (Auto) 1.4 Monocytes # (Auto) 0.4 Eosinophils # (Auto) 0.1 Basophils # (Auto) 0.0 CBC Comment DIFF FINAL Differential Comment Prothrombin Time 11.4 Prothromb Time International Ratio 1.1 Activated Partial Thromboplast Time 27.1 Blood Urea Nitrogen 21 Creatinine 1.33 Random Glucose 107 Total Protein 8.6 Albumin 2.5 Calcium Level 8.4 Magnesium Level 1.9 Alkaline Phosphatase 63 Aspartate Amino Transf (AST/SGOT) 47 Alanine Aminotransferase (ALT/SGPT) 22 Total Bilirubin 0.5 Sodium Level 143 Potassium Level 4.0 Chloride Level 111 Carbon Dioxide Level 22.4 Anion Gap 10 Estimat Glomerular Filtration Rate 67 Total Creatine Kinase 214 Creatine Kinase MB 2.7 Troponin I 0.21 B-Type Natriuretic Peptide 2549 Lipase 201 Ethyl Alcohol Level LESS THAN 3 Result Diagram: 10/06/17 1600 10/06/17 1600 Caprini VTE Risk Assessment Caprini VTE Risk Assessment: No/Low Risk (score <= 1) Caprini Risk Assessment Model Point Value = 1 Point Value = 2 Point Value = 3 Point Value = 5 Age 41-60 Minor surgery BMI > 25 kg/m2 Swollen legs Varicose veins or History of unexplained or recurrent spontaneous Oral contraceptives or hormone replacement Sepsis (< 1 month) Serious lung disease, including pneumonia (< 1 month) Abnormal pulmonary function Acute myocardial infarction Congestive heart failure (< 1 month) History of inflammatory bowel disease Medical patient at bed rest Age 61-74 Arthroscopic surgery Major open surgery (> 45 min) Laparoscopic surgery (> 45 min) Malignancy Confined to bed (> 72 hours) Immobilizing plaster cast Central venous access Age >= 75 History of VTE Family history of VTE Factor V Leiden Prothrombin [id number] Lupus anticoagulant Anticardiolipin antibodies Elevated serum homocysteine Heparin-induced thrombocytopenia Other congenital or acquired thrombophilia Stroke (< 1 month) Elective arthroplasty Hip, pelvis, or leg fracture Acute spinal cord injury (< 1 month) Prophylaxis Regimen Total Risk Factor Score Risk Level Prophylaxis Regimen 0-1 Low Early ambulation 2 Moderate Order ONE of the following: *Sequential Compression Device (SCD) *Heparin 5000 units SQ BID 3-4 Higher Order ONE of the following medications: *Heparin 5000 units SQ TID *Enoxaparin/Lovenox 40 mg SQ daily (WT < 150 kg, CrCl > 30 mL/min) *Enoxaparin/Lovenox 30 mg SQ daily (WT < 150 kg, CrCl > 10-29 mL/min) *Enoxaparin/Lovenox 30 mg SQ BID (WT < 150 kg, CrCl > 30 mL/min) AND/OR *Sequential Compression Device (SCD) 5 or more Highest Order ONE of the following medications: *Heparin 5000 units SQ TID (Preferred with Epidurals) *Enoxaparin/Lovenox 40 mg SQ daily (WT < 150 kg, CrCl > 30 mL/min) *Enoxaparin/Lovenox 30 mg SQ daily (WT < 150 kg, CrCl > 10-29 mL/min) *Enoxaparin/Lovenox 30 mg SQ BID (WT < 150 kg, CrCl > 30 mL/min) AND *Sequential Compression Device (SCD) Assessment and Plan Assessment and Plan Assessment/plan: 1. Chest pain Initial troponin 0.[address] segment elevations or depressions, personally reviewed ACS rule out pending; serial troponins/EKGs 2. ? CHF Patient with bilateral pedal edema BNP 2549 Last echo done on 07/09/17 Echo pending Cardiology consulted, appreciate recommendations 3. Hypertension Continue home amlodipine 4. Diabetes mellitus Sliding-scale insulin Monitor blood glucose FEN N.p.o. Electrolytes: Monitor and replete as needed Heparin Physician Certification 2 Midnight Certification Type: Admission for Inpatient Services Order for Inpatient Services The services are ordered in accordance with Medicare regulations or non- Medicare payer requirements, as applicable. In the case of services not specified as inpatient-only, they are appropriately provided as inpatient services in accordance with the 2-midnight benchmark. Estimated LOS (days): 2 2 days is the estimated time the patient will need to remain in the hospital, assuming treatment plan goals are met and no additional complications. Post-Hospital Plan: Not yet determined Leia Huerta MD Oct 06, 2017 21:05
[2017-10-07] VITALS (8 sets, daily range): BP systolic 125–149; BP diastolic 84–103; PULSE 95–114; RESP 16–20; TEMP 97.2–97.6; O2SAT 94–98
[2017-10-07] MEDS: HEPARIN SODIUM - SQ 10,000 UNITS/ML VIAL SQ SCH ×3 (06:12→20:53)
[2017-10-07] MEDS: INSULIN ASPART SUPPLEMENTAL SCALE SQ SCH ×4 (07:41→20:53)
[2017-10-07] MEDS: amLODIPine BESYLATE 5 MG TAB PO SCH (08:21)
[2017-10-07] MEDS: SODIUM CHLORIDE 0.9% FLUSH 10 ML FLUSH IV FLUSH SCH ×2 (08:22→20:53)
[2017-10-07] MEDS: ASPIRIN 81 MG CHEW TAB PO SCH (08:22)
[2017-10-07] MEDS: NITROGLYCERIN 0.4 MG SL 25 TABS/BTL SL PRN ×2 (08:33→08:46)
--- NOTE | 2017-10-07 13:40 | HHI.PR ---
Subjective Remarks Is in bed appears some distress due to shortness of breath and also he complains of chest pain. He admits of using cocaine however says last use was 2 weeks ago. She is saturating well on room air. No nausea vomiting no diarrhea or constipation. No cough fever chills. Objective Vitals Vital Signs Date Time Temp Pulse Resp B/P (MAP) Pulse Ox O2 Delivery O2 Flow Rate FiO2 10/07/17 12:00 97.5 100 16 125/97 (106) 95 10/07/17 12:00 103 10/07/17 08:00 98 10/07/17 08:00 Room Air 10/07/17 08:00 97.6 101 16 142/99 (113) 94 10/07/17 04:00 97.5 105 18 139/99 (112) 97 10/07/17 03:44 95 10/07/17 00:00 97.2 98 17 137/84 (101) 97 10/06/17 23:44 102 10/06/17 22:00 Nasal Cannula 2.00 10/06/17 20:00 98.4 107 18 144/83 (103) 98 10/06/17 18:38 75 17 172/72 (105) 100 Nasal Cannula 2.00 10/06/17 18:29 100 21 10/06/17 17:30 97 18 149/96 (113) 100 Room Air 10/06/17 16:16 75 17 97 Room Air 10/06/17 16:10 100 Room Air 10/06/17 16:10 100 Room Air 10/06/17 16:05 98.6 100 18 137/97 (110) 100 I/O 10/06/17 10/06/17 10/06/17 10/07/17 10/07/17 10/07/17 06:59 14:59 22:59 06:59 14:59 22:59 Intake Total 222 ml Balance 222 ml Intake Oral 222 ml # Voids 1 # Bowel Movements 0 Result Diagram: 10/06/17 1600 10/06/17 1600 Imaging Last Impressions Chest X-Ray 10/06/17 1605 Signed Impressions: CONCLUSION: No acute cardiopulmonary disease. Objective Remarks GENERAL: -[place] male sitting up in bed CARDIOVASCULAR: Regular rate and rhythm without murmurs, gallops, or rubs. RESPIRATORY: Clear to auscultation. Breath sounds equal bilaterally. No wheezes , rales, or rhonchi. GASTROINTESTINAL: Abdomen soft, non-tender, nondistended. No hepato-splenomegaly , or palpable masses. No guarding. MUSCULOSKELETAL: Extremities without clubbing, cyanosis, or edema. No joint tenderness, effusion, or edema noted. No calf tenderness. NEUROLOGICAL: Awake and alert. Cranial nerves II through XII intact. Motor and sensory grossly within normal limits. Normal speech. A/P Assessment and Plan Chest pain Initial troponin 0.21 trending down EKG without ST segment elevations or depressions, personally reviewed Consult cardiology Patient also with history of cocaine use last use of cocaine 2 weeks ago per patient ? CHF Patient with bilateral pedal edema BNP 2549 Last echo done on 07/09/17 Echo pending Cardiology consulted, appreciate recommendations H/o cocaine use last use was 2 weeks ago. Counselled excessively. Hypertension Continue home amlodipine Diabetes mellitus 2 Sliding-scale insulin Monitor blood glucose DVT ppx scd/teds/Heparin Jaqueline Loza MD Oct 07, 2017 13:40
[2017-10-07] MEDS ORDERED: ONDANSETRON ODT 4 MG TAB PO PRN (19:00)
[2017-10-07] MEDS ORDERED: METOCLOPRAMIDE HCL 10 MG/2 ML VIAL IV PUSH PRN (19:00)
--- NOTE | 2017-10-07 19:08 | ECHRPT ---
Indication: CHEST PAIN CONCLUSIONS The left ventricular systolic function is severely reduced with an estimated ejection fraction in t he range of 20-25%. There is global left ventricular dysfunction. Mild mitral valve regurgitation. There is mild to moderate tricuspid valve regurgitation. Mild pulmonary valve regurgitation. A right sided pleural effusion is present. BP: / HR: Rhythm: Sinus MEASUREMENTS (Male / Female) Normal Values Technical Quality:Fair 2D ECHO LV Diastolic Diameter PLAX 6.2 cm 4.2 - 5.9 / 3.9 - 5.3 cm LV Systolic Diameter PLAX 5.6 cm IVS Diastolic Thickness 1.1 cm 0.6 - 1.0 / 0.6 - 0.9 cm LVPW Diastolic Thickness 1.1 cm 0.6 - 1.0 / 0.6 - 0.9 cm LV Relative Wall Thickness 0.3 RV Internal Dim ED PLAX 3.5 cm LVOT Diameter 2.2 cm Aortic Root Diameter 2.8 cm LA Systolic Diameter LX 3.5 cm 3.0 - 4.0 / 2.7 - 3.8 cm M-MODE AV Cusp Separation MM 2.1 cm DOPPLER AV Peak Velocity 62.0 cm/s AV Peak Gradient 1.5 mmHg AV Mean Gradient 1.0 mmHg AV Velocity Time Integral 8.7 cm LVOT Peak Velocity 42.3 cm/s LVOT Peak Gradient 0.7 mmHg LVOT Velocity Time Integral 5.9 cm AV Area Cont Eq vti 2.6 cm AV Area Cont Eq pk 2.6 cm Mitral E Point Velocity 172.0 cm/s Mitral A Point Velocity 27.1 cm/s Mitral E to A Ratio 6.3 LV E' Lateral Velocity 5.7 cm/s Mitral E to LV E' Lateral Ratio 30.4 LV E' Septal Velocity 5.4 cm/s Mitral E to LV E' Septal Ratio 32.1 TR Peak Velocity 309.0 cm/s TR Peak Gradient 38.2 mmHg Right Atrial Pressure 10.0 mmHg Pulmonary Artery Systolic Pressu 48.2 mmHg Right Ventricular Systolic Press 48.2 mmHg PV Peak Velocity 31.6 cm/s PV Peak Gradient 0.4 mmHg FINDINGS LEFT VENTRICLE Mildly dilated left ventricle. Wall thickness is measured at the upper limits of normal. The left ventricular systolic function is severely reduced with an estimated ejection fraction in t he range of 20-25%. There is global left ventricular dysfunction. There are findings consistent with dilated cardiomyopathy. RIGHT VENTRICLE The right ventricular size is normal. The right ventricular systoilc function is moderately decreased. LEFT ATRIUM The left atrial size is upper limits of normal. RIGHT ATRIUM The right atrial size is [id number] dilated. ATRIAL SEPTUM No atrial level shunt is demonstrated by color flow Doppler interrogation. AORTA The aortic root and proximal ascending aorta are normal in size on limited imaging. MITRAL VALVE Mitral valve annuloplasty ring is present. Leaflets grossly normal Mild mitral valve regurgitation. No mitral valve stenosis. AORTIC VALVE Grossly normal aortic valve. No aortic valve stenosis or regurgitation. TRICUSPID VALVE Grossly normal tricuspid valve. There is mild to moderate tricuspid valve regurgitation. The estimated pulmonary arterial pressure is 48.2 mmHg. PULMONARY VALVE Mild pulmonary valve regurgitation. The pulmonary valve is not well visualized. VESSELS There is less than 50% respiratory change in dimension of the inferior vena cava (abnormal). PERICARDIUM No pericardial effusion. A right sided pleural effusion is present. James Zhang DO (Electronically Signed) Final Date:07 October 2017 19:08
[2017-10-07] MEDS ORDERED: FUROSEMIDE 40 MG/4 ML VIAL IV PUSH ONE (19:30)
--- NOTE | 2017-10-07 22:58 | EKG ---
Date Performed: 10/07/2017 Time Performed: 06:09:14 PTAGE: 57 years EKG: Sinus tachycardia. Possible anteroseptal infarct - age undetermined Inferior/lateral ST-T c hanges may be due to myocardial ischemia Abnormal ECG PREVIOUS TRACING : 10/06/2017 22.05 DOCTOR: Kinga Crews Interpretating Date/Time 10/07/2017 22:53:17
--- NOTE | 2017-10-07 23:00 | MB ---
cc: James Zhang DO DATE: 10/07/2017 REASON FOR CONSULTATION: Shortness of breath, chest pain. HISTORY OF PRESENT ILLNESS: Stevo Chavez is a pleasant 57-year-old male who presented to [facility] on 07/06/2017 due to chest pain and shortness of breath. He was previously here in late June and was found to have no significant coronary artery disease, but severe mitral regurgitation and underwent mitral valve repair. Since that time, he was doing relatively well, until about a week ago, when he started noticing chest pain. Chest pain is over the right side of his chest and hurts more with deep breathing or coughing. Chest pain, kind of been there since his surgery, but just slightly worse or more noticeable this week. His shortness of breath has really significantly increased over the past week. In talking to him, he has not been doing well with salt and uses it on most of his meals, although not excessively. He has been following his weights at home and he says they fluctuate, but somewhat on an uptrend. Shortness of breath seems to come on with any activity or when he lays down. He previously was on medication, but was lost to followup and was unable to refill them and so he has not been on his medications for about 3 weeks. The patient admits to using marijuana and states that he is around cocaine, so his drug screen "may be positive." PAST MEDICAL HISTORY: 1. Diabetes mellitus. 2. Hypertension. 3. Marijuana abuse. 4. Tobacco abuse. PAST SURGICAL HISTORY: 1. Minimally invasive mitral valve repair with complex reconstruction of the posterior leaflet, ring annuloplasty with a 30 Toro ring. 2. Cardiac catheterization (07/11/2017), normal coronary arteries, with no significant disease, mild to moderate pulmonary hypertension. ALLERGIES: NO KNOWN DRUG ALLERGIES. MEDICATIONS: 1. Albuterol 2 puffs every 6 hours as needed for shortness of breath. 2. Flomax 0.4 mg every night. 3. Coumadin 5 mg daily. 4. Amiodarone 200 mg every 12 hours. 5. Metoprolol tartrate 12.5 mg every 12 hours. 6. Norvasc 5 mg daily. 7. Aspirin 81 mg daily. 8. Hydrocodone/acetaminophen 5/325 every 4 hours as needed for pain. 9. Docusate 100 mg b.i.d. 10. Multivitamin daily. FAMILY HISTORY: Denies premature coronary artery disease or sudden cardiac within the family. SOCIAL HISTORY: The patient smokes about 5 cigarettes per day. Denies alcohol. Does admit to smoking marijuana. Reports that cocaine is used around him and so his drug test may be positive, but he does not use it. REVIEW OF SYSTEMS: Fourteen systems were reviewed including osteopathic. Pertinent positives and negatives above, otherwise negative. PHYSICAL EXAMINATION: VITAL SIGNS: Temperature 97.6, heart rate 100, blood pressure 142/99, respirations 16, pulse oximetry 94% on room air. GENERAL: The patient appears well, in no acute distress. Alert, awake and oriented x 3. HEENT: Extraocular muscles intact. Mucous membranes moist. NECK: Supple. Mild JVD noted bilaterally. Carotid upstroke is brisk in nature. HEART: Regular rate and rhythm. Positive first and second heart sounds, with a 1/6 holosystolic murmur noted at the apex. LUNGS: Have decreased breath sounds bilaterally, with no wheezes or rhonchi noted. ABDOMEN: Soft, nontender, nondistended. No organomegaly noted. EXTREMITIES: Showed trace edema bilaterally. Femoral and distal pulses intact bilaterally. NEUROLOGIC: No focal deficits. SKIN: Warm, dry and intact. OSTEOPATHIC: No kyphoscoliosis, lordosis or paraspinal tender points. LABORATORY DATA: Hemoglobin 13.9, hematocrit 42.6, platelets 157. Potassium 4.0, BUN 21, creatinine 1.33. Troponin 0.21, decreasing to 0.15. BNP 2549. UDS positive for cocaine and cannabis. Electrocardiogram (10/07/2017 at 0609), sinus tachycardia, poor R-wave progression, inferolateral ST-T wave changes, possibly due to ischemia. IMPRESSION: 1. Acute heart failure of unknown type, with a history of mitral valve repair recently. 2. Previous severe mitral regurgitation, status post repair (06/2017). 3. Normal coronary arteries by cardiac catheterization (06/2017). 4. Chest pain, atypical for coronary insufficiency. 5. Shortness of breath secondary to congestive heart failure. 6. Tobacco abuse. 7. Cocaine abuse. RECOMMENDATIONS: 1. Mr. Chavez presented with shortness of breath and chest pain and I believe this is due to a fluid overload state with acute heart failure. 2. We will check a 2-D echo to evaluate his overall left ventricular function, as well as his mitral valve repair, as this appears to be new onset heart failure. 3. I spoke to him for greater than 3 minutes about tobacco cessation. 4. By the end of my history and physical, he did admit to using cocaine around 2 weeks ago. Overall, this may have caused further cardiotoxicity and so we will evaluate his overall left ventricular function. We should avoid beta ashleigh therapy due to his cocaine use. 5. He does have a mildly elevated troponin, but overall appears to be on a downtrend with negative CKs and atypical chest pain, most likely elevated due to congestive heart failure. 6. I reviewed the films of his cardiac catheterization from 3 months ago and overall the coronaries look to have minimal disease. If the left circumflex was affected by the mitral valve repair, this would have presented acutely and not chronically like this. 7. Further recommendations will be made based on the hospital course. 8. Overall, he will need to be diuresed, but we will have to watch his kidney function due to mild elevation compared to previous hospitalization. Thank you for allowing me to see [facility]. If there are any questions, please do not hesitate to call. DO KYM Buckner/RAMIRO , 07:24 PM , 10:57 PM
--- NOTE | 2017-10-07 23:04 | EKG ---
Date Performed: 10/06/2017 Time Performed: 22:05:04 PTAGE: 57 years EKG: Sinus tachycardia with borderline 1st degree A-V block. Cannot rule out anteroseptal infarc t - age undetermined LVH with secondary repolarization abnormality Inferior/lateral ST-T changes may be due to hypertrophy and/or ischemia Abnormal ECG PREVIOUS TRACING : 10/06/2017 16.01 DOCTOR: Kinga Crews Interpretating Date/Time 10/07/2017 22:56:26
--- NOTE | 2017-10-07 23:10 | EKG ---
Date Performed: 10/06/2017 Time Performed: 16:01:34 PTAGE: 57 years EKG: SINUS TACHYCARDIA POSSIBLE LEFT ATRIAL ENLARGEMENT SEPTAL MYOCARDIAL INFARCTION MODERATE T- WAVE ABNORMALITY, CONSIDER LATERAL ISCHEMIA MODERATE T-WAVE ABNORMALITY, CONSIDER INFERIOR ISCHEMIA A BNORMAL ECG PREVIOUS TRACING : 07/16/2017 03.36 DOCTOR: Kinga Crews Interpretating Date/Time 10/07/2017 23:00:20
[2017-10-08] VITALS (9 sets, daily range): BP systolic 135–150; BP diastolic 72–101; PULSE 50–122; RESP 14–22; TEMP 97.2–98.4; O2SAT 92–99
[2017-10-08 05:23] LABS: AUTOMATED NEUTROPHIL # 2.6 TH/MM3 (1.8-7.7); BASOPHIL % 0.7 % (0.0-2.0); EOSINOPHIL # 0.1 TH/MM3 (0-0.4); EOSINOPHIL % 1.9 % (0.0-4.0); HEMATOCRIT 43.8 % (39.0-51.0); HEMOGLOBIN 14.1 GM/DL (13.0-17.0); LYMPH % 24.7 % (9.0-44.0); MEAN CELL VOLUME 89.1 FL (80.0-100.0); MEAN CORPUSCULAR HEMOGLOBIN 28.7 PG (27.0-34.0); MEAN CORPUSCULAR HGB CONC 32.2 % (32.0-36.0); MEAN PLATELET VOLUME 9.1 FL (7.0-11.0); MONO % 8.6 % (0.0-8.0); MONOCYTE # 0.4 TH/MM3 (0-0.9); NEUT % 64.1 % (16.0-70.0); PLATELET COUNT 134 TH/MM3 (150-450); RED BLOOD COUNT 4.91 MIL/MM3 (4.50-5.90); RED CELL DISTRIBUTION WIDTH 14.7 % (11.6-17.2); WHITE BLOOD COUNT 4.1 TH/MM3 (4.0-11.0)
[2017-10-08] MEDS: HEPARIN SODIUM - SQ 10,000 UNITS/ML VIAL SQ SCH ×3 (05:29→20:38)
[2017-10-08 05:44] LABS: BICARBONATE 22.8 MEQ/L (21.0-32.0); CALCIUM 8.7 MG/DL (8.5-10.1); CREATININE 1.38 MG/DL (0.60-1.30); MAGNESIUM 1.8 MG/DL (1.5-2.5)
[2017-10-08] MEDS: INSULIN ASPART SUPPLEMENTAL SCALE SQ SCH ×4 (08:00→20:36)
[2017-10-08] MEDS: SODIUM CHLORIDE 0.9% FLUSH 10 ML FLUSH IV FLUSH SCH ×2 (08:39→20:36)
[2017-10-08] MEDS: ASPIRIN 81 MG CHEW TAB PO SCH (08:39)
[2017-10-08] MEDS: amLODIPine BESYLATE 5 MG TAB PO SCH (08:39)
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
[2017-10-08] MEDS: FUROSEMIDE 40 MG/4 ML VIAL IV PUSH SCH (10:27)
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
[2017-10-09] VITALS (10 sets, daily range): BP systolic 132–160; BP diastolic 90–98; PULSE 94–114; RESP 15–19; TEMP 96.6–97.8; O2SAT 93–100
[2017-10-09] MEDS: HEPARIN SODIUM - SQ 10,000 UNITS/ML VIAL SQ SCH (05:07)
[2017-10-09] MEDS: INSULIN ASPART SUPPLEMENTAL SCALE SQ SCH ×4 (08:00→20:41)
[2017-10-09] MEDS: SODIUM CHLORIDE 0.9% FLUSH 10 ML FLUSH IV FLUSH SCH ×2 (08:35→21:00)
[2017-10-09] MEDS: FUROSEMIDE 40 MG/4 ML VIAL IV PUSH SCH (08:36)
[2017-10-09] MEDS: amLODIPine BESYLATE 5 MG TAB PO SCH (08:36)
[2017-10-09] MEDS: ASPIRIN 81 MG CHEW TAB PO SCH (08:36)
[2017-10-09] MEDS ORDERED: HEPARIN SODIUM - IV 10,000 UNITS/10 ML VIAL ONE (09:58)
[2017-10-09] MEDS ORDERED: HEPARIN-NS/PF INJ 1,500 ML ONE (09:58)
[2017-10-09] MEDS ORDERED: VERAPAMIL HCL 5 MG/2 ML VIAL ONE (09:58)
[2017-10-09] MEDS ORDERED: NITROGLYCERIN INJ 5 ML ONE (09:58)
[2017-10-09] MEDS ORDERED: MIDAZOLAM HCL 2 MG/2 ML VIAL ONE (10:19)
--- NOTE | 2017-10-09 10:55 | CATHPROC ---
CEL-SCI HIS Report Study Information Study Number Admission Scheduled Start Study Start [id number] Oct 06 2017 6:06PM 10/08/2017 Oct 09 2017 9:56AM Study Type [place] [facility] Left Heart Cath Cardiac Catheterization Admit Source Facility Department Other [facility] Strategic Sourcing Consultant Physician and Clinical Staff Initial James Squires Dip Dyer Killian Davidson RN Recorder Faye Aponte,RT(R) Scrub Rosalva Sood,AMELIE TECH2 Procedures Performed Procedure Location (Site) Vessel Name Coronary Angiograms LCA Left Coronary Coronary Angiograms RCA Right Coronary L Heart Cath Wire insertion Radial (right) Radial Art. Equipment Time Boxing Machine Operator Description Size Mfg Part Number Used/Scraped TRANSDUCER, TRUWAVE [id number] 10:33 ADAN PEREZ * Used W/STOCKCOCK *[id number] *[id number] *[id number] 10:33 [employer] BLANKET,WARM AIR CCL * Used *[id number] 10:33 [employer] PACK, CCL CUSTOM * Used *[id number] 10:33 [employer] SUPPORT, ARTERIAL ADULT 75928 *[id number] Used BAND, RADIAL COMPRESSION TR [id number] 10:44 [employer] MEDICAL 24CM Used SHORT 24 *[id number] 10:33 [employer] WIRE, EXCHANGE 260CM 3MMJ 260CM Used *[id number] 10:33 NAMIC MANIFOLD, 4 PORT * Used *[id number] 10:33 [employer]COMED OMNIPAQUE, 350 MG, 150ML 150ML [id number] Used SHEATH, FR6 TRANSRADIAL RM*[id number] 10:33 [employer] MEDICAL FR 6 Used SLENDER 10CM *[id number] History: Current Medications Medication Dosage/Unit Route Frequency Last Date/Time Taken ASA NORVASC Beta Anthony Coumadin History: Allergies Allergy Reaction No Known Allergies History: Risk Factors Family History of Hypertension Dyslipidemia Previous HI Previous Heart Failure Premature CAD Yes Yes No Yes Yes Prior Valve Prior PCI Prior CABG Surgery Yes No No Cerebrovascular Peripheral Artery Chronic Lung On Dialysis Diabetes Diabetes Therapy Disease Disease Disease No No No No Yes Insulin History: Risk Factors Selection Items Current Smoker History: CV Disease Selection Items HI History: Stress Tests Stress or Imaging Studies Performed No History: Other Disease Selection Items HTN History: Other Current Smoker Method Yes Cigarettes Labs Hgb (g/dl) Hct (%) WBC (l/cumm) Platelets (thousands) 11.60-17.00 35.00-51.00 4.00-11.00 150.00-450.00 14.1 43.8 4.1 134 Glucose (mg/dl) BUN (mg/dl) Creatinine (mg/dl) BUN:Creatinine (1:x) 74.00-106.00 7.00-18.00 0.50-1.30 10.00-20.00 97 22 1.4 15.7 Na (meq/l) K (meq/l) 136.00-145.00 3.50-5.10 142 3.8 Troponin I (ng/ml) CPK-MB (ng/ML) 0.02-0.05 0.50-3.60 0.18 2.7 Medication Medication Total Dose (Bolus/Oral) Medication Total Dosage/Unit 1% XYLOCAINE 20 mL FENTANYL 25 mcg RADIAL COCKTAIL 5 mL (Bolus) VERSED 1 mg Medications (Bolus/Oral) Medication Time Given Dosage/Unit Administered By Reason VERSED 10/09/2017 10:27:36 AM 1 mg Killian Davidson 1 mg VERSED given by Killian Davidson RN via Peripheral IV. FENTANYL 10/09/2017 10:28:39 AM 25 mcg Killian Davidson 25 mcg FENTANYL given by Killian Davidson RN via Peripheral IV. 1% XYLOCAINE 10/09/2017 10:30:20 AM 20 mL James Zhang 20 mL 1% XYLOCAINE given by James Zhang in Right Radial via Subcutaneous. Ntg 200mcg Verapamil 2.5mg Heparin RADIAL COCKTAIL 10/09/2017 10:32:11 AM 5 mL (Bolus) Killian Davidson 3000U 5 mL (Bolus) RADIAL COCKTAIL given by Killian Davidson RN in Right Radial via Radial. Using [Solution N bettye]. Reason: Ntg 200mcg Verapamil 2.5mg Heparin 3000U. heparin 2600 units Initial Case Assessment Cardiovascular HR Rhythm NIBP Chest Pain 97 reg 143/107 0 Edema Present Skin color Skin None Normal Warm Circulatory - Right Pulses Dorsalis Pedis Femoral Radial 2 2 2 Scale (0,1,2,3,4,d) Circulatory - Left Pulses Dorsalis Pedis Femoral Radial 2 2 Scale (0,1,2,3,4,d) Circulatory - Lower Extremities Color Lower Right Normal Neurological State Oriented to time-place- Alert Moves all extremities person Respiration - General Respiration Rate SpO2 (%) (B/min) 17 99 Final Case Assessment Cardiovascular HR Rhythm Chest Pain 110 reg 0 Edema Present Skin color Skin None Normal Warm Circulatory - Right Pulses Dorsalis Pedis Femoral Radial 2 2 2 Scale (0,1,2,3,4,d) Circulatory - Left Pulses Dorsalis Pedis Femoral Radial 2 2 Scale (0,1,2,3,4,d) Circulatory - Lower Extremities Color Lower Right Color Lower Left Normal Normal Neurological State Oriented to time-place- Alert Moves all extremities person Respiration - General Respiration Rate SpO2 (%) (B/min) 23 95 Chronological Log Time Study Chronological Log 9:55:40 Patient arrived via Bed. Vitals capture started with the following parameters, Patient=Adult, Interval=5 min, Initial Pr semgyv=746 mmHg, 10:00:04 Deflation Rate=5 mmHg, Cuff placed on Left Arm 10:00:36 Reference ECG taken 10:01:02 HR=98 bpm, LULS=742/104 mmhg, SpO2=99.0 %, Resp=8 B/min, Pain=0, Antionette=10, Messina=2 10:02:50 Patient Name, D.O.B, / Armband Verified By R.N. 10:02:50 Consent signed by the physician and the patient and verified by the Strategic Sourcing Consultant staff. 10:02:51 Pre-op and post- op instructions given; patient acknowledges understanding of instructions. 10:02:52 Verbal Stimulation=2 Physical Stimulation=2 Airway=2 Respiration=2 TOTAL=8. (0=absent, 1=li mited, 2=present) 10:03:14 Allens test performed on the right radial and ulnar artery with a positive result 10:03:15 HR=97 bpm, DWYS=637/108 mmhg, JtU9=851.0 %, Resp=23 B/min, Pain=0, Antionette=10, Messina=2 10:03:45 Patient has been NPO for More than 6Hrs. 10:03:47 Skin Breakdown-none 10:03:51 Patient Warmer Placed on the Table. Assessment: Initial Case, HR=97 BPM, Rhythm=reg, CZFI=833/107 mmhg, Chest Pain=0, Edema=None, Color=Normal, Skin = Warm Right Pulses: Bird Ped=2, Femoral=2, Radial=2 10:03:55 Left Pulses: Bird Ped=2, Femoral=2 Lower Right Extremities: Color=Normal Neurological: State=Alert, Ox3, HERNANDEZ Respiration: Resp=17 B/min, SpO2=99 % 10:05:06 HR=90 bpm, HPUC=027/107 mmhg, SpO2=99.0 %, Resp=5 B/min, Pain=0, Antionette=10, Messina=2 10:06:38 HR=95 bpm, LPPD=940/105 mmhg, Resp=12 B/min, Pain=0, Antionette=10, Messina=2 10:08:21 Right Radial and groin(s) prepped with 2% chlorhexidine, and draped after a 3 min. waiting time. 10:09:10 CV=377 bpm, BKIX=367/111 mmhg, FjD3=612 %, Resp=17 B/min, Pain=0, Antionette=10, Messina=2 10:11:17 HR=98 bpm, UJEW=067/119 mmhg, SpO2=97.0 %, Resp=22 B/min, Pain=0, Antionette=10, Messina=2 10:12:39 HR=99 bpm, SIOQ=276/111 mmhg, QmJ4=353 %, Resp=18 B/min, Pain=0, Antionette=10, Messina=2 10:14:41 KP=873 bpm, GDKO=253/107 mmhg, XuS3=717 %, Resp=20 B/min, Pain=0, Antionette=10, Messina=2 10:15:52 Pressure channel 1 zeroed. 10:16:40 HR=97 bpm, NYIR=630/102 mmhg, AnK0=442 %, Resp=20 B/min, Pain=0, Antionette=10, Messina=2 10:17:15 MD paged 10:18:43 IR=911 bpm, EDEI=967/108 mmhg, VrT4=288 %, Resp=21 B/min, Pain=0, Antionette=10, Messina=2 10:20:40 HR=97 bpm, BUFH=887/106 mmhg, TzL4=551 %, Resp=2 B/min, Pain=0, Antionette=10, Messina=2 10:23:20 BE=725 bpm, JYGL=491/108 mmhg, SnM9=151.0 %, Resp=16 B/min, Pain=0, Antionette=10, Messina=2 10:25:06 HB=202 bpm, WAVK=551/106 mmhg, UgL3=219.0 %, Resp=6 B/min, Pain=0, Antionette=10, Messina=2 10:26:28 MY=049 bpm, RZZL=003/84 mmhg, MzK6=779.0 %, Resp=3 B/min, Pain=0, Antionette=10, Messina=2 10:27:21 MD arrived. 10:27:36 1 mg VERSED given by Killian Davidson RN via Peripheral IV. 10:28:39 25 mcg FENTANYL given by Killian Davidson RN via Peripheral IV. 10:29:12 HR=99 bpm, BKEB=532/108 mmhg, SpO2=98.0 %, Resp=15 B/min, Pain=0, Antionette=10, Messina=2 Time Out. Correct patient, correct procedure, correct physician, labs, allergies, and equipment verified with laborer golf course 10:29:28 team present. Fire risk assesment completed (see hard stop sheet for coding). Time Out Conc urred by MD and individual staff in procedure. 10:29:45 Case Start 10:29:47 Verbal Stimulation=2 Physical Stimulation=2 Airway=2 Respiration=2 TOTAL=8. (0=absent, 1=li mited, 2=present) 10:30:20 20 mL 1% XYLOCAINE given by James Zhang in Right Radial via Subcutaneous. 10:30:44 OY=941 bpm, VUGP=034/110 mmhg, QfB7=518.0 %, Resp=22 B/min, Pain=0, Antionette=10, Messina=2 5 mL (Bolus) RADIAL COCKTAIL given by Killian Davidson RN in Right Radial via Radial. Using [Solu tion Name]. Reason: 10:32:11 Ntg 200mcg Verapamil 2.5mg Heparin 3000U. heparin 2600 units 10:32:12 Access site was Radial Artery. 10:32:17 A wire was inserted via Radial (right). A SHEATH, FR6 TRANSRADIAL SLENDER 10CM FR 6 was advanced into the Radial (right) using the Perc utaneous 10:32:27 technique. 10:32:45 HR=99 bpm, YHVG=590/103 mmhg, WcS2=134 %, Resp=14 B/min, Pain=0, Antionette=10, Messina=2 10:34:08 A JR 4.0 INFINITI CATHETER FR 5 was advanced over a wire. contrast was used for injections. 10:34:44 HR=97 bpm, YOKA=095/106 mmhg, SpO2=94.0 %, Resp=15 B/min, Pain=0, Antionette=10, Messina=2 Recorded Pressure: LV, HR=97, Condition=Condition 1 10:35:35 (Left Ventricle) LV 120/7/17 Recorded Pressure: LV, Ao, HR=98, Condition=Condition 1 10:35:53 (Left Ventricle) LV 124/8/21, (Aorta) Ao 122/90/105 Recorded Pressure: Ao, HR=94, Condition=Condition 1 10:36:17 (Aorta) Ao 126/91/106 10:36:32 The RCA was injected and visualized at various angles. OMNIPAQUE, 350 MG, 150ML 150ML use d. 10:36:42 HR=96 bpm, GMBJ=693/95 mmhg, SzS9=064 %, Resp=22 B/min, Pain=0, Antionette=10, Messina=2 After removing the current catheter a JL 3.5 INFINITI CATHETER FR 5 was advanced over a WIRE, EXCHANGE 260CM 10:37:35 3MMJ 260CM. 10:38:41 HR=96 bpm, LBUP=074/98 mmhg, SpO2=96 %, Resp=22 B/min, Pain=0, Antionette=10, Messina=2 10:40:04 The LCA was injected and visualized at various angles. OMNIPAQUE, 350 MG, 150ML 150ML use d. 10:40:40 HR=96 bpm, PEZP=353/101 mmhg, SpO2=95.0 %, Resp=13 B/min, Pain=0, Antionette=10, Messina=2 10:41:42 Catheter was removed Assessment: Final Case, II=947 BPM, Rhythm=reg, Chest Pain=0, Edema=None, Color=Normal, Skin = Warm Right Pulses: Bird Ped=2, Femoral=2, Radial=2 Left Pulses: Bird Ped=2, Femoral=2 10:42:41 Lower Right Extremities: Color=Normal Lower Left Extremities: Color=Normal Neurological: State=Alert, Ox3, HERNANDEZ Respiration: Resp=23 B/min, SpO2=95 % 10:43:22 Case End (Physician broke scrub) 10:43:39 NIBP STAT measurement started. 10:43:58 Catheter(s) removed without difficulty Radial Compression Device Used. ~VOLUME ML~ mLs of air placed in BAND, RADIAL COMPRESSION TR S HORT 24 10:44:03 24CM. Affected hand ~O2 SATURATION~ % O2 saturation. 10:44:28 Sterile dressing applied to site 10:44:29 No case complications noted. 10:44:30 Cine recording checked. 10:44:34 Bedside Report will be given. 10:44:39 A Left Heart Cath was performed. 10:44:43 Clinical correlaton risk stratification. 10:45:14 ET=284 bpm, PBLQ=819/132 mmhg, LgG8=861 %, Resp=33 B/min, Pain=0, Antionette=10, Messina=2 10:46:27 Vitals capture stopped. End Study - Contrast Media Used In Study Contrast Total Opened (mL) Total Used (mL) Total Wasted (mL) Omnipaque 30 30 0 End Study - Maximum Contrast Load Max Contrast Load (mL) 233.3 End Study - Radiation Exposure Fluoro Time (minutes) 1.8 End Study - Sheaths Sheaths Pulled By Sheath Hold Time (min) Rosalva Sood End Study - Patient Disposition Complications Transferred To No Critical Care Bed
[2017-10-09] MEDS ORDERED: MISC INFORMATION XX ONE (11:00)
[2017-10-09] MEDS: CARVEDILOL 6.25 MG TAB PO SCH ×2 (11:00→21:25)
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
--- NOTE | 2017-10-09 11:23 | MA ---
cc: James Zhang DO DATE: 10/09/2017 PROCEDURE: Left heart catheterization, coronary angiogram, moderate sedation 15 minutes. PREPROCEDURE DIAGNOSIS: NSTEMI, new cardiomyopathy, chest pain, shortness of breath, new acute congestive heart failure. POSTPROCEDURE DIAGNOSES: Mild coronary artery disease, nonischemic cardiomyopathy. MEDICATIONS: Versed 0.5 mg, fentanyl 25 mcg, verapamil 2.5 mg, nitro 200 mcg, heparin 2600 units. CONTRAST USED: 30 mL. FLUOROSCOPY: 1.8 minutes. MODERATE SEDATION: 15 minutes. FRAILTY SCORE: 3. ESTIMATED BLOOD LOSS: 10 mL. PROCEDURAL SUMMARY: Stevo Chavez is a pleasant 57-year-old male who presented to [facility] Emergency Room due to chest pain and shortness of breath. He was found to have a mildly elevated troponin, as well as a new cardiomyopathy and because of this, recommended cardiac catheterization. Risks, benefits and alternatives were explained to him and he consented as such. He was brought to the lab and prepped in the usual sterile fashion. The right radial artery was accessed using modified Seldinger technique and placement of a 5/6 [place] slender sheath. This was easily aspirated and flushed. A JR4 was advanced over a J-wire to the ascending aorta and across the aortic valve for measurement of left ventricular pressure. This was pulled back across the aortic valve showing no significant gradient of aortic stenosis. JR4 was used for selective angiography of the right coronary artery system. This is exchanged out for a JL3.5, which was used for selective angiography of the left coronary artery system. JL3.5 was removed over a J wire. A radial band was placed over the arteriotomy site for hemostasis. 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 FINDINGS: Left main moderate to large-sized vessel with no significant disease. It bifurcates into an LAD and circumflex. LAD: Normal-sized vessel with mild luminal irregularities. It gives off 2 major diagonals with no disease. Left Circumflex: Normal-sized vessel with 1 major obtuse marginal, which has an upper and lower branch and no disease. RCA: Normal-sized vessel with mild luminal irregularities. It has a high bifurcation of the PDA and the posterolateral branch with no disease. LVEDP 21. IMPRESSIONS: 1. Non-ST elevation myocardial infarction type 2 due to congestive heart failure. 2. Mild coronary artery disease. 3. New cardiomyopathy possibly due to cocaine abuse. 4. Cocaine abuse. 5. Tobacco abuse. 6. Chest pain and shortness of breath most likely due to elevated left ventricular end-diastolic pressure. 7. New acute systolic heart failure. RECOMMENDATIONS: 1. Mr. Chavez has no change in his coronary anatomy and has a nonischemic cardiomyopathy. 2. He will be recommended medical management of this. He will be recommended medical management of his nonischemic cardiomyopathy. 3. Although not ideal because of his cocaine abuse, I feel it is necessary to place him on carvedilol due to its anti-beta an anti-alpha blockade. 4. We will continue to diurese him. Eventually, he should be placed on EDMUND inhibitor therapy. 5. I spoke to him about cocaine cessation and how it has affects on his heart. 6. Tobacco cessation. 7. Further recommendations will be made based on the hospital course. Thank you for allowing me to see Stevo Chavez. If there are any questions, please do not hesitate to call. James Zhang DO VGP/DL , 10:55 AM , 11:22 AM
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
[2017-10-09] MEDS ORDERED: FURO1TAB62 PO (14:59)
[2017-10-09] MEDS ORDERED: LISI-519 PO (14:59)
[2017-10-09] MEDS ORDERED: CARV6.25 PO (14:59)
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
[2017-10-10] VITALS: BP 144/102; PULSE 100; RESP 18; TEMP 97.6; O2SAT 97
[2017-10-10 03:41] VITALS: PULSE 87
[2017-10-10 04:00] VITALS: BP 135/97; PULSE 98; RESP 18; TEMP 97.5; O2SAT 100
[2017-10-10 07:23] LABS: AUTOMATED NEUTROPHIL # 2.6 TH/MM3 (1.8-7.7); BASOPHIL % 0.4 % (0.0-2.0); EOSINOPHIL # 0.1 TH/MM3 (0-0.4); EOSINOPHIL % 1.3 % (0.0-4.0); HEMATOCRIT 43.8 % (39.0-51.0); HEMOGLOBIN 14.4 GM/DL (13.0-17.0); LYMPH % 27.8 % (9.0-44.0); LYMPHOCYTE # 1.2 TH/MM3 (1.0-4.8); MEAN CELL VOLUME 88.1 FL (80.0-100.0); MEAN CORPUSCULAR HEMOGLOBIN 28.9 PG (27.0-34.0); MEAN CORPUSCULAR HGB CONC 32.8 % (32.0-36.0); MEAN PLATELET VOLUME 9.1 FL (7.0-11.0); MONOCYTE # 0.4 TH/MM3 (0-0.9); NEUT % 61.5 % (16.0-70.0); PLATELET COUNT 147 TH/MM3 (150-450); RED BLOOD COUNT 4.97 MIL/MM3 (4.50-5.90); RED CELL DISTRIBUTION WIDTH 14.7 % (11.6-17.2); WHITE BLOOD COUNT 4.2 TH/MM3 (4.0-11.0)
[2017-10-10 08:00] VITALS: PULSE 95
[2017-10-10] MEDS: INSULIN ASPART SUPPLEMENTAL SCALE SQ SCH ×2 (08:00→11:54)
[2017-10-10] MEDS: CARVEDILOL 6.25 MG TAB PO SCH (08:23)
[2017-10-10] MEDS: amLODIPine BESYLATE 5 MG TAB PO SCH (08:24)
[2017-10-10] MEDS: SODIUM CHLORIDE 0.9% FLUSH 10 ML FLUSH IV FLUSH SCH (08:25)
[2017-10-10] MEDS: FUROSEMIDE 40 MG/4 ML VIAL IV PUSH SCH (08:26)
[2017-10-10 08:41] LABS: BICARBONATE 24.4 MEQ/L (21.0-32.0); CALCIUM 8.7 MG/DL (8.5-10.1); CREATININE 1.28 MG/DL (0.60-1.30)
[2017-10-10] MEDS ORDERED: ASPIRIN 81 MG CHEW TAB PO SCH (09:00)
[2017-10-10 10:51] VITALS: O2SAT 98
[2017-10-10] MEDS ORDERED: CARV6.25 PO (11:03)
--- NOTE | 2017-10-10 11:30 | PD.CARD.PN ---
Subjective Subjective Remarks Doing well Ready to go home Telemetry with some PAT, otherwise NSR Objective Medications Current Medications Medications (Trade) Dose Ordered Sig/Jakob Route Start Time Stop Time Status Last Admin (NS Flush) 2 ml UNSCH PRN IVF 10/06/17 16:15 (NS Flush) 2 ml BID IV FLUSH 10/06/17 21:00 10/10/17 08:25 (NS Flush) 2 ml UNSCH PRN IV FLUSH 10/06/17 18:30 (Nitrostat Sl) 0.4 mg Q5M PRN SL 10/06/17 18:30 10/07/17 08:46 (Restoril) 15 mg HS PRN PO 10/06/17 21:00 10/08/17 01:44 (D50w (Vial) Inj) 50 ml UNSCH PRN IV PUSH 10/06/17 21:00 (Glucagon Inj) 1 mg UNSCH PRN OTHER 10/06/17 21:00 (NovoLOG SUPPLEMENTAL SCALE) 1 ACHS SLIDING SCALE SQ 10/06/17 21:00 (Norvasc) 5 mg DAILY PO 10/07/17 09:00 10/10/17 08:24 (Zofran Odt) 4 mg Q6H PRN PO 10/07/17 19:00 10/07/17 19:18 (Reglan Inj) 5 mg Q8H PRN IV PUSH 10/07/17 19:00 (Lasix Inj) 40 mg DAILY IV PUSH 10/08/17 09:45 10/10/17 08:26 (Aspirin Chew) 81 mg DAILY PO 10/10/17 09:00 10/10/17 08:24 (Coreg) 12.5 mg Q12HR PO 10/10/17 21:00 UNV Vital Signs / I&O Vital Signs Date Time Temp Pulse Resp B/P (MAP) Pulse Ox O2 Delivery O2 Flow Rate FiO2 10/10/17 10:51 98 21 10/10/17 09:40 Room Air 10/10/17 08:00 95 10/10/17 04:00 97.5 98 18 135/97 (110) 100 10/10/17 03:41 87 10/10/17 00:00 97.6 100 18 144/102 (116) 97 10/09/17 23:41 99 10/09/17 21:40 97 10/09/17 20:00 97.7 101 18 132/94 (107) 97 10/09/17 20:00 Room Air 10/09/17 19:45 94 10/09/17 15:00 114 10/09/17 14:02 96.6 106 19 143/90 (107) 100 I/O 10/09/17 10/09/17 10/09/17 10/10/17 10/10/17 10/10/17 07:00 15:00 23:00 07:00 15:00 23:00 Intake Total 500 ml 360 ml Balance 500 ml 360 ml Intake Oral 500 ml 360 ml # Voids 16 2 8 # Bowel Movements 2 Physical Exam GENERAL: NAD, AAOx3 SKIN: Warm and dry. HEAD: Atraumatic. Normocephalic. EYES: Pupils equal and round. No scleral icterus. No injection or drainage. ENT: No nasal bleeding or discharge. Mucous membranes pink and moist. NECK: Trachea midline. No JVD. CARDIOVASCULAR: Regular rate and rhythm. 1/6 holosystolic murmur RESPIRATORY: No accessory muscle use. Decreased breath sounds bilaterally GASTROINTESTINAL: Abdomen soft, non-tender, nondistended. Hepatic and splenic margins not palpable. MUSCULOSKELETAL: Extremities without clubbing, cyanosis, or edema. No obvious deformities. NEUROLOGICAL: Awake and alert. No obvious cranial nerve deficits. Motor grossly within normal limits. Five out of 5 muscle strength in the arms and legs. Normal speech. PSYCHIATRIC: Appropriate mood and affect; insight and judgment normal. Laboratory Laboratory Tests Test 10/10/17 07:00 White Blood Count 4.2 TH/MM3 Red Blood Count 4.97 MIL/MM3 Hemoglobin 14.4 GM/DL Hematocrit 43.8 % Mean Corpuscular Volume 88.1 FL Mean Corpuscular Hemoglobin 28.9 PG Mean Corpuscular Hemoglobin Concent 32.8 % Red Cell Distribution Width 14.7 % Platelet Count 147 TH/MM3 Mean Platelet Volume 9.1 FL Neutrophils (%) (Auto) 61.5 % Lymphocytes (%) (Auto) 27.8 % Monocytes (%) (Auto) 9.0 % Eosinophils (%) (Auto) 1.3 % Basophils (%) (Auto) 0.4 % Neutrophils # (Auto) 2.6 TH/MM3 Lymphocytes # (Auto) 1.2 TH/MM3 Monocytes # (Auto) 0.4 TH/MM3 Eosinophils # (Auto) 0.1 TH/MM3 Basophils # (Auto) 0.0 TH/MM3 CBC Comment DIFF FINAL Differential Comment Blood Urea Nitrogen 33 MG/DL Creatinine 1.28 MG/DL Random Glucose 99 MG/DL Calcium Level 8.7 MG/DL Sodium Level 141 MEQ/L Potassium Level 3.9 MEQ/L Chloride Level 107 MEQ/L Carbon Dioxide Level 24.4 MEQ/L Anion Gap 10 MEQ/L Estimat Glomerular Filtration Rate 70 ML/MIN Assessment and Plan Problem List: (1) Systolic heart failure ICD Codes: I50.20 - Unspecified systolic (congestive) heart failure (2) SOB (shortness of breath) ICD Codes: R06.02 - Shortness of breath Status: Acute (3) S/P MVR (mitral valve replacement) ICD Codes: Z95.2 - Presence of prosthetic heart valve (4) Chest pain ICD Codes: R07.9 - Chest pain, unspecified Status: Resolved (5) Hypertension ICD Codes: I10 - Essential (primary) hypertension Status: Chronic Assessment and Plan 1) SOB/CP most likely due to fluid overload state 2) Previous severe MR s/p repair Mild MR by echo 3) NICM EF 20-25% New onset Possible post-MV repair vs. cocaine Avoiding BB due to cocaine, but needs it for cardiomyopathy, will place on Coreg due to Beta/Alpha blockade Started on EDMUND-I Increase Coreg Cardiovascularly stable for discharge 4) NSVT Replace electrolytes 5) Tobacco cessation 6) Cocaine cessation 7) Discharge on Lasix PO Problem Qualifiers (1) Chest pain: Qualified Codes: R07.9 - Chest pain, unspecified James Zhang DO Oct 10, 2017 11:30
[2017-10-10] MEDS ORDERED: CARVEDILOL 12.5 MG TAB PO SCH (21:00)
== END 2017-10-10 13:24 | disposition home or self-care (01) ==
LOC: NEPC 15:49 → INTOOBSV 18:06 → NEDA 18:06 → UNDOADMOB 18:06 → NEDA 18:06 → N04B 18:57 → UNDODISOB 10-10 13:24
PROVIDERS: ADMIT Hospitalist; ATTEND Hospitalist
DX: I21.A1 Myocardial infarction type 2 (principal); I11.0 Hypertensive heart disease with heart failure; I50.41 Acute combined systolic (congestive) and diastolic (congestive) heart failure; R00.0 Tachycardia, unspecified; R94.31 Abnormal electrocardiogram [ECG] [EKG]; N39.0 Urinary tract infection, site not specified; M10.9 Gout, unspecified; D64.9 Anemia, unspecified; I25.10 Atherosclerotic heart disease of native coronary artery without angina pectoris; I42.8 Other cardiomyopathies; E11.9 Type 2 diabetes mellitus without complications; F12.90 Cannabis use, unspecified, uncomplicated; F14.10 Cocaine abuse, uncomplicated; F17.210 Nicotine dependence, cigarettes, uncomplicated; Z79.899 Other long term (current) drug therapy; Z79.01 Long term (current) use of anticoagulants
CPT/HCPCS: 71046; 80048; 80053; 80307; 82550; 82552; 82948; 83690; 83735; 83880; 84484; 85025; 85610; 85730; 93005; 93306; 93458; 96361; 96372; 96374; 96375; 99152; 99153; 99285; C1769; C1893; G0378; J1644; J1940; J2250; J2270; J3010; J7040; Q9967

== ENCOUNTER 2017-10-18 02:27 | Observation (INO) ==
[2017-10-20] MEDS ORDERED: Acetaminophen 325 MG Tablet PO PRN (01:49)
[2017-10-20] MEDS ORDERED: Bisacodyl 10 MG Supp RECTAL PRN (01:52)
[2017-10-20] MEDS ORDERED: Morphine Inj 4 MG/ML Vial IV.PUSH PRN (01:58)
[2017-10-20] MEDS ORDERED: Azithromycin Inj 500 MG in Sodium Chlor 0.9% Inj 250 ML IV.SIG SCH (03:00)
--- NOTE | 2017-10-20 09:48 | P.PNIM ---
Subjective Interval history: The patient is in bed he appears chronically ill and very weak. No nausea vomiting, however says he does not have any appetite and he is not eating much. No pain in his belly. No cough no fever has some chills. GENERAL: Middle-aged black male fatigued appears chronically ill. HEENT: PERRLA, EOMI. No scleral icterus or conjunctival pallor. No lid lag or facial droop. CARDIOVASCULAR: Regular rate and rhythm. No obvious murmurs to auscultation. No chest tenderness to palpation. RESPIRATORY: No obvious rhonchi or wheezing. Clear to auscultation. Breath sounds equal bilaterally. GASTROINTESTINAL: Abdomen soft, non-tender, nondistended. BS normal. MUSCULOSKELETAL: Extremities without clubbing, cyanosis, or edema. No obvious deformities. NEUROLOGICAL: Awake, alert and oriented x4. No focal neurologic deficits. Moving both upper and lower extremities spontaneously. Systolic CHF with severely decreased EF: Acute on Chronic. Echo 10/07/17 w/ EF 20-25%, recent admit 10/06/17 for same, d/c'd on multiple medications, questionable compliance compounded by recent cocaine abuse, returns w/ worsening SOB. BNP 2485 on admission CXR reviewed: mild interstitial edema CTA Pulm negative for PE, small right effusion. Resume home Coreg, Lisinopril, Lasix IV, monitor I/O, telemetry. PATIENT NOTED WITH LOW bp HALICAT WAS CALLED, ALSO CARDIOLOGY KENAEL PATIENT [facility] NOTE REVIEWED. bp IS BETTER CONTROLLED. MONITOR CLOSELY PATIENT IS ON DIURETICS PNA: CTA Pulm w/ small RML PNA, continue Rocephin/Zithro, DuoNeb prn, monitor O2. Chest Pain: likely secondary to fluid overload state, NTG/Morphine prn. Per cardiology Dr. Zhang not cardiac related. Elevated Trop: Chronic. Trop 0.08, previously 0.18, admit for further observation, r/o ACS, telemetry, check serial cardiac enzymes. Resume ASA, no Metoprolol in light of Cocaine, ok for Coreg DVT Prophylaxis: SCD/Teds CM consulted for d/c planning as needed. Discussed with the patient, nurse Physical Exam Vital signs: Vital Signs 10/20/17 03:29 10/20/17 08:56 Temperature 98.1 F 97.6 F Pulse Rate 97 H 95 H Respiratory Rate 17 23 Blood Pressure 114/83 118/86 Pulse Oximetry 97 99 Intake & Output 10/19/17 10/20/17 10/20/17 18:59 06:59 18:59 Intake Total 100 / 100 250 / 250 Balance 100 / 100 250 / 250 Weight 68.18 kg Intake: IV 100 / 100 250 / 250 Azithromycin Inj 500 MG In NS 250 / 250 Inj 250 ML @ 250 mls/hr IV.SIG Q24H RUDDY Rx#:[id number] Rocephin Inj 1,000 MG In NS Inj 100 / 100 100 ML @ 200 mls/hr IV.SIG Q24H RUDDY Rx#:[id number] Other: Weight On Admission 68.18 kg Results - Labs CBC & Chem 7: 10/19/17 04:25 10/19/17 04:25 Laboratory Results - last 24 hr 10/17/17 10/17/17 10/17/17 23:55 23:55 23:55 WBC 3.9 L RBC 4.89 Hgb 14.3 POC Hgb Hct 43.5 POC Hct MCV 88.9 MCH 29.2 MCHC 32.9 RDW 14.6 Plt Count 128 L MPV 8.9 Neut % (Auto) 60.3 Lymph % (Auto) 25.8 Mcclain % (Auto) 7.1 Eos % (Auto) 5.6 H Baso % (Auto) 1.2 Neut # (Auto) 2.4 Lymph # (Auto) 1.0 Mcclain # (Auto) 0.3 Eos # (Auto) 0.2 Baso # (Auto) 0.0 CBC Comment DIFF FINAL PT 11.0 INR 1.1 APTT 24.3 Puncture Site Patient Temperature HCO3 Base Excess O2 Saturation ABG pH ABG pCO2 ABG pO2 ABG O2 Content ABG Carboxyhemoglobin ABG Methemoglobin Hemoglobin O2 Delivery Device Liter Flow POC Sodium Sodium 141 POC Potassium Potassium 4.3 POC Chloride Chloride 110 H Carbon Dioxide 24.6 Anion Gap 6 POC BUN BUN 24 H Creatinine 1.47 H POC Creatinine Estimated GFR 60 L POC Glucose Random Glucose 96 Calcium 8.5 Magnesium Total Bilirubin AST ALT Alkaline Phosphatase Total Creatine Kinase 143 CK-MB (CK-2) 1.7 Troponin I 0.08 H B-Natriuretic Peptide Total Protein Albumin 10/17/17 10/18/17 10/18/17 23:55 06:00 13:15 WBC RBC Hgb POC Hgb Hct POC Hct MCV MCH MCHC RDW Plt Count MPV Neut % (Auto) Lymph % (Auto) Mcclain % (Auto) Eos % (Auto) Baso % (Auto) Neut # (Auto) Lymph # (Auto) Mcclain # (Auto) Eos # (Auto) Baso # (Auto) CBC Comment PT INR APTT Puncture Site Patient Temperature HCO3 Base Excess O2 Saturation ABG pH ABG pCO2 ABG pO2 ABG O2 Content ABG Carboxyhemoglobin ABG Methemoglobin Hemoglobin O2 Delivery Device Liter Flow POC Sodium Sodium POC Potassium Potassium POC Chloride Chloride Carbon Dioxide Anion Gap POC BUN BUN Creatinine POC Creatinine Estimated GFR POC Glucose Random Glucose Calcium Magnesium Total Bilirubin AST ALT Alkaline Phosphatase Total Creatine Kinase CK-MB (CK-2) Troponin I 0.06 H 0.05 B-Natriuretic Peptide 2485 H Total Protein Albumin 10/18/17 10/18/17 10/18/17 21:43 21:43 21:43 WBC 3.5 L RBC 4.82 Hgb 14.1 POC Hgb Hct 42.2 POC Hct MCV 87.5 MCH 29.3 MCHC 33.5 RDW 14.7 Plt Count 136 L MPV 9.0 Neut % (Auto) 64.8 Lymph % (Auto) 19.9 Mcclain % (Auto) 7.8 Eos % (Auto) 4.9 H Baso % (Auto) 2.6 H Neut # (Auto) 2.3 Lymph # (Auto) 0.7 L Mcclain # (Auto) 0.3 Eos # (Auto) 0.2 Baso # (Auto) 0.1 CBC Comment DIFF FINAL PT INR APTT Puncture Site Patient Temperature HCO3 Base Excess O2 Saturation ABG pH ABG pCO2 ABG pO2 ABG O2 Content ABG Carboxyhemoglobin ABG Methemoglobin Hemoglobin O2 Delivery Device Liter Flow POC Sodium Sodium 139 POC Potassium Potassium 4.1 POC Chloride Chloride 107 Carbon Dioxide 23.3 Anion Gap 9 POC BUN BUN 30 H Creatinine 1.61 H POC Creatinine Estimated GFR 54 L POC Glucose Random Glucose 102 Calcium 8.2 L Magnesium 2.0 Total Bilirubin 0.5 AST 38 H ALT 21 Alkaline Phosphatase 58 Total Creatine Kinase 100 CK-MB (CK-2) Troponin I 0.06 H B-Natriuretic Peptide 2372 H Total Protein 8.2 Albumin 2.2 L 10/19/17 10/19/17 10/19/17 04:00 04:25 04:25 WBC 5.0 RBC 4.72 Hgb 13.5 POC Hgb Hct 42.5 POC Hct MCV 89.9 MCH 28.7 MCHC 31.9 L RDW 15.0 Plt Count 150 MPV 9.4 Neut % (Auto) 55.1 Lymph % (Auto) 32.7 Mcclain % (Auto) 6.8 Eos % (Auto) 4.6 H Baso % (Auto) 0.8 Neut # (Auto) 2.8 Lymph # (Auto) 1.6 Mcclain # (Auto) 0.3 Eos # (Auto) 0.2 Baso # (Auto) 0.0 CBC Comment DIFF FINAL PT INR APTT Puncture Site RT FEMORAL Patient Temperature 98.6 HCO3 14 L* Base Excess -9.1 L O2 Saturation 98 ABG pH 7.47 H ABG pCO2 19 L* ABG pO2 164 H ABG O2 Content 19.9 ABG Carboxyhemoglobin 0.8 ABG Methemoglobin 0.4 Hemoglobin 14.3 O2 Delivery Device NASAL CANNULA Liter Flow 8 POC Sodium Sodium 139 POC Potassium Potassium 4.1 POC Chloride Chloride 106 Carbon Dioxide 23.5 Anion Gap 10 POC BUN BUN 29 H Creatinine 1.89 H POC Creatinine Estimated GFR 45 L POC Glucose Random Glucose 157 H Calcium 8.3 L Magnesium Total Bilirubin 0.4 AST 31 ALT 19 Alkaline Phosphatase 58 Total Creatine Kinase 81 CK-MB (CK-2) Troponin I 0.07 H B-Natriuretic Peptide Total Protein 8.2 Albumin 2.4 L 10/19/17 10/19/17 10/19/17 04:25 04:25 04:25 WBC RBC Hgb POC Hgb 15.3 Hct POC Hct 45.0 MCV MCH MCHC RDW Plt Count MPV Neut % (Auto) Lymph % (Auto) Mcclain % (Auto) Eos % (Auto) Baso % (Auto) Neut # (Auto) Lymph # (Auto) Mcclain # (Auto) Eos # (Auto) Baso # (Auto) CBC Comment PT 11.7 H INR 1.2 APTT 25.7 Puncture Site Patient Temperature HCO3 Base Excess O2 Saturation ABG pH ABG pCO2 ABG pO2 ABG O2 Content ABG Carboxyhemoglobin ABG Methemoglobin Hemoglobin O2 Delivery Device Liter Flow POC Sodium 142 Sodium POC Potassium 4.2 Potassium POC Chloride 103 Chloride Carbon Dioxide Anion Gap POC BUN 30 H BUN Creatinine POC Creatinine 1.7 H Estimated GFR POC Glucose 162 H Random Glucose Calcium Magnesium Total Bilirubin AST ALT Alkaline Phosphatase Total Creatine Kinase Cancelled CK-MB (CK-2) Troponin I B-Natriuretic Peptide Total Protein Albumin
[2017-10-20] MEDS: amLODIPine 5 MG Tablet PO SCH (10:11)
[2017-10-20] MEDS: Carvedilol 6.25 MG Tablet PO SCH ×2 (10:11→22:12)
[2017-10-20] MEDS: Amiodarone 200 MG Tablet PO SCH ×2 (10:11→22:11)
[2017-10-20] MEDS: Multivitamin/Minerals Therapeutic Tablet PO SCH (10:12)
[2017-10-20] MEDS: Lisinopril 5 MG Tablet PO SCH (10:12)
[2017-10-20] MEDS: Senna/Docusate Sodium 8.6/50 MG Tablet PO SCH (10:12)
[2017-10-21 04:44] LABS: Hematocrit 49.2 % (39.0-51.0); Mean Corpuscular HGB Conc 32.5 % (32.0-36.0); Mean Corpuscular Hemoglobin 28.6 pg (27.0-34.0); Mean Platelet Volume 9.6 fL (7.0-11.0); Platelet Count 177 th/mm3 (150-450); Red Blood Count 5.58 mil/mm3 (4.50-5.90); Red Cell Distribution Width 14.7 % (11.6-17.2); White Blood Count 5.2 th/mm3 (4.0-11.0)
[2017-10-21 05:08] LABS: Calcium 9.1 mg/dL (8.5-10.1); Carbon Dioxide 26.5 meq/L (21.0-32.0); Magnesium 2.1 mg/dL (1.5-2.5); Potassium 4.1 meq/L (3.5-5.1)
[2017-10-21] MEDS: Lisinopril 5 MG Tablet PO SCH (08:30)
[2017-10-21] MEDS: Amiodarone 200 MG Tablet PO SCH (08:30)
[2017-10-21] MEDS: amLODIPine 5 MG Tablet PO SCH (08:31)
[2017-10-21] MEDS: Multivitamin/Minerals Therapeutic Tablet PO SCH (08:31)
[2017-10-21] MEDS: Carvedilol 6.25 MG Tablet PO SCH (08:31)
[2017-10-21] MEDS: Senna/Docusate Sodium 8.6/50 MG Tablet PO SCH (08:43)
--- NOTE | 2017-10-21 09:56 | P.PNFP ---
Subjective Interval history: Patient was evaluated earlier this morning and he told me he felt fine. He stated that he had to get out of here now as he had things to do. He denied any chest pain, worsening shortness of breath, nausea or vomiting. He told me that he had a progressive assembler and fitter that he was going to call and make an appointment to go see this week, Dr. Matthew. Discussed with RN, patient has been refusing his medication while in the hospital. When I asked him why, he claimed that he was not and that the nursing staff was giving him his same medications twice Results - Labs Result diagrams: 10/21/17 03:11 10/21/17 03:11 Abnormal lab results 10/21/17 Range/Units 03:11 BUN 34 H (7-18) mg/dL Creatinine 1.53 H (0.60-1.30) mg/dL Estimated GFR 57 L (>89) mL/min Short CBC 10/21/17 Range/Units 03:11 WBC 5.2 (4.0-11.0) th/mm3 Hgb 16.0 (13.0-17.0) gm/dL Hct 49.2 (39.0-51.0) % Plt Count 177 (150-450) th/mm3 BMP 10/21/17 03:11 Sodium 142 Potassium 4.1 Chloride 106 Carbon Dioxide 26.5 BUN 34 H Creatinine 1.53 H Calcium 9.1 Physical Exam Vital signs: Vital Signs 10/20/17 12:00 10/20/17 14:21 10/20/17 16:00 Temperature 98 F 97.9 F Pulse Rate 94 H 24 L Respiratory Rate 24 Blood Pressure 125/84 108/85 Pulse Oximetry 99 98 98 10/20/17 20:41 10/20/17 23:18 10/21/17 01:11 Temperature 97.9 F Pulse Rate 99 H Respiratory Rate 17 Blood Pressure 136/88 Pulse Oximetry 98 97 96 10/21/17 05:28 Temperature 97.4 F L Pulse Rate 102 H Respiratory Rate 16 Blood Pressure Pulse Oximetry 95 Intake & Output 10/20/17 10/21/17 10/21/17 18:59 06:59 18:59 Intake Total 490 / 490 Output Total 600 / 600 Balance 490 / 490 -600 / -600 Intake: IV 250 / 250 Azithromycin Inj 500 MG In NS 250 / 250 Inj 250 ML @ 250 mls/hr IV.SIG Q24H RUDDY Rx#:[id number] Oral 240 / 240 Output: Urine 600 / 600 Other: Post Void Residual 600 # Voids 5 Narrative: Patient was sitting up in bed, telling me that he will be leaving now. Heart rate was regular with no murmurs Lungs were clear with no wheezing Abdomen soft, nontender, no guarding Moving all extremities with no difficulties. Assessment and Plan - Plan Systolic CHF with severely decreased EF: Acute on Chronic. Echo 10/07/17 w/ EF 20-25%, recent admit 10/06/17 for same, d/c'd on multiple medications, questionable compliance compounded by recent cocaine abuse, returned w/ worsening SOB. BNP 2485 on admission CXR reviewed: mild interstitial edema CTA Pulm negative for PE, small right effusion. Home medications were resumed: Coreg, Lisinopril, Lasix IV, monitor I/O, telemetry. While in the hospital, a [facility] was called because patient was lethargic and there was suspicion for ST elevation [place]. On-call cardiology was called and at that time it was felt that this was not a STEMI. [facility] note reviewed. Pt claimed that he was leaving here to set up an appt w Dr. Matthew, progressive assembler and fitter. I was notified that pt signed out AMA before I could place orders. There is concerns that pt is non compliant. He has been refusing meds while inpatient as well. PNA: CTA Pulm w/ small RML PNA, he was treated w Rocephin/Zithro, DuoNeb prn, monitor O2. Chest Pain: likely secondary to fluid overload state, NTG/Morphine prn. Per cardiology, Dr. Zhang whom previous hospitalist team spoke with, not cardiac related. Elevated Trop: Chronic. Trops remained mildly elevated but stable Pt left AMA.
--- NOTE | 2017-10-24 19:10 | P.AMA ---
AMA Note - AMA Note AMA Statement: Patient Stevo Chavez has decided to leave the hospital against medical advice. This patient has the capacity to refuse care and understands the risks of leaving, including permanent disability and/or , and has had an opportunity to ask questions about his/her condition. The patient has been informed that he/she may return for care at any time, and follow up has been arranged/advised. Systolic CHF with severely decreased EF: Acute on Chronic. Echo 10/07/17 w/ EF 20-25%, recent admit 10/06/17 for same, d/c'd on multiple medications, questionable compliance compounded by recent cocaine abuse, returned w/ worsening SOB. BNP 2485 on admission CXR reviewed: mild interstitial edema CTA Pulm negative for PE, small right effusion. Home medications were resumed: Coreg, Lisinopril, Lasix IV, monitor I/O, telemetry. While in the hospital, a [facility] was called because patient was lethargic and there was suspicion for ST elevation [place]. On-call cardiology was called and at that time it was felt that this was not a STEMI. [facility] note reviewed. Pt claimed that he was leaving here to set up an appt w Dr. Matthew, driver's license examiner. I was notified that pt signed out AMA before I could place orders. There is concerns that pt is non compliant. He has been refusing meds while inpatient as well. PNA: CTA Pulm w/ small RML PNA, he was treated w Rocephin/Zithro, DuoNeb prn, monitor O2. Chest Pain: likely secondary to fluid overload state, NTG/Morphine prn. Per cardiology, Dr. Zhang whom previous hospitalist team spoke with, not cardiac related. Elevated Trop: Chronic. Trops remained mildly elevated but stable Pt left AMA. - AMA Note Discharge Disposition: Left Against Medical Advice
== END 2017-10-21 11:02 | disposition left against medical advice (07) ==
LOC: NEPFCDU 02:27
PROVIDERS: ADMIT Hospitalist; ATTEND Hospitalist

== ENCOUNTER 2017-11-19 03:33 | Inpatient (IN) ==
--- NOTE | 2017-11-19 04:08 | ED ---
HPI General Chief complaint: Altered Mental Status Stated complaint: Ams/Evac Time Seen by Provider: 11/19/17 03:48 Source: patient Mode of arrival: EMS Limitations: altered mental status History of Present Illness HPI narrative: The patient is a a 57 year old male who presents to the [facility] emergency department with a history of altered mental status noted by a friend prior to arrival. This occurred approximately 30-40 minutes ago. Ambulance services were called. The patient was noted to have a blood sugar in the low 50s. The patient was given dextrose by ambulance services and his mentation began to improve. The patient was initially reportedly a GCS of 11. The patient on arrival is a GCS of 14. The patient reports that he has been using cocaine. He reports that he has been using something else, however I cannot understand what he is saying. The patient is agitated on arrival. The patient is spontaneously moving all extremities. The patient's repeat blood sugar on arrival is in the 90s. He denies having any chest pain. He denies having any shortness of breath. The patient's other history is limited due to his confusion. Related Data Home Medications Medication Instructions Recorded Confirmed albuterol sulfate 2 puff INHALATION Q4-6H PRN 11/03/17 11/19/17 amlodipine [Norvasc] 5 mg PO DAILY 11/03/17 11/19/17 carvedilol 12.5 mg PO BID 11/03/17 11/19/17 furosemide 20 mg PO DAILY 11/03/17 11/19/17 lisinopril PO DAILY 11/03/17 warfarin 5 mg PO Q OTHER DAY 11/03/17 11/19/17 Allergies Allergy/AdvReac Type Severity Reaction Status Date / Time No Known Allergies Allergy Unverified 11/19/17 04:45 Review of Systems ROS Unobtainable unobtainable due to mental status (The patient arrives confused) PMFSH History History Provided By: 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 / EMT Medical History Medical History CHF (congestive heart failure) (Acute) Cocaine use (Acute) Hypertension (Acute) Surgical History Surgical History Hx of heart artery stent (Acute) Social History Social History Substance History: Active Abuse Smoking Status: Current every day smoker Tobacco Type: Cigarettes How Often Do You Have a Drink Containing Alcohol: 4 or more times a week Recent Travel in [facility] within the Last 8 Weeks: No Recent Out of Country Travel within the Last 8 Weeks: No Exam Const General: well developed, disheveled and other (Agitated on arrival) Nutritional Appearance: well nourished Orientation: alert and awake [facility] Head: normocephalic and atraumatic Nose: no nasal discharge and no epistaxis Mouth: moist mucous membranes Throat: posterior oropharynx normal Eyes Sclera: normal sclerae Pupils: PERRL Neck Neck: trachea midline and no JVD Resp Effort & Inspection: no use of accessory muscles Auscultation: clear to auscultation bilaterally Cardio Rate: regular rate Rhythm: regular rhythm Heart Sounds: no murmurs GI Inspection: non-distended Palpation: soft, no hepatosplenomegaly and tender in the epigastrum; not in the LLQ, not in the RLQ, not in the LUQ, not in the RUQ, not at McBurney's point, Bar's sign negative and with no rebound tenderness Auscultation: other (Decreased bowel sounds are audible.) Back/Spine/Pelvis Back: no CVA tenderness Cervical Spine: No cervical spinal tenderness Thoracic/Lumbar Spine: No thoracic spinal tenderness and No lumbar spinal tenderness Skin General: dry skin (warm) and other (Bilateral feet have skin sloughing off of the soles.) Neuro General: alert and awake (The patient is oriented to person, place, however not time or situation) Cranial Nerves: other (Patient is uncooperative with a formal neurologic examination however he is spontaneously moving all extremities with 5/5 strength in tach sensation over all dermatomes. Patient has no evidence of facial asymmetry.) Speech: abnormal speech (Slightly slurred speech.) Extrem General: normal to inspection, no clubbing, no cyanosis and edema (2+ edema bilateral ankles and feet.) Psych Mood: congruent mood Affect: normal affect Judgment: judgment good Course Reevaluation(s) Reevaluation #1: The patient was agitated and was given Ativan 1 mg IV Consultations Consultation #1: The patient's case including history, pertinent physical examination findings, and laboratory studies were discussed with Dr. Pina. It was agreed that the patient would be admitted to the wrap knitting machine operator's service. Initial Documented Vital Signs Temperature 98.2 F 11/19/17 04:41 Pulse Rate 83 11/19/17 04:41 Respiratory Rate 28 H 11/19/17 04:41 Blood Pressure 130/80 07/31/18 04:41 Pulse Oximetry 95 11/19/17 04:41 Last Documented Vital Signs Temperature 98.2 F 11/19/17 04:41 Pulse Rate 78 11/19/17 05:55 Respiratory Rate 24 11/19/17 05:55 Blood Pressure 132/97 H 11/19/17 05:55 Pulse Oximetry 100 11/19/17 05:37 Critical Care Time Critical Care Time: Yes Total Critical Care Time: 36 Attestation: Aggregate critical care time was 36 minutes. Time to perform other separately billable procedures was not included in the critical care time. My time did not include minutes spent treating any other patients simultaneously or on activities that did not directly contribute to the patient's treatment. The services I provided to this patient were to treat and/or prevent clinically significant deterioration that could result in: Respiratory failure, versus encephalopathy from hypoglycemia, versus cardiovascular collapse from cardiac dysrhythmia I provided critical care services requiring my management, as noted below: Chart data review, documentation time, medication orders and management, vital sign assessments/reviewing monitor data, ordering and reviewing lab tests, ordering and interpreting/reviewing x-rays and diagnostic studies, care of the patient and discussion of the patient with the admitting physicians. Medical Decision Making MDM Narrative Medical decision making narrative: During the course of the patient's emergency department visit, the patient's history, examination, and differential diagnosis were reviewed with the patient. The patient was placed on a awake overnight monitor with oximetry and frequent blood pressure monitoring. The patient had IV access obtained and blood work sent for analysis. Diagnostic workup was started regarding the patient's altered mentation and hypoglycemia. According to the record, the patient has no prior history of diabetes. The patient was initially provided Ativan 1 mg IV for sedation due to agitation. The patient was given nitroglycerin 1 inch the chest wall. Laboratory studies were remarkable for a white count of 3.8, platelets 92, neutrophils 76.3, hemoglobin 16.7, PT 16.4, PTT 28.7, chemistry is remarkable for troponin I of 0.20, CPK 1302, total bilirubin 2.1, potassium 7.0. This will be repeated for validity, however the patient does have renal insufficiency which is worse than previous with a creatinine of 2.41, therefore in the meantime the patient was given Lasix 40 mg IV as he does have pulmonary edema on his chest x-ray, calcium chloride 1 g IV to stabilize his cardiac membranes, and 2 A of bicarb, as the patient is acidotic with a CO2 of 14.2. BUN is 4307, AST 200, albumin 2.4. Urinalysis shows 18 WBCs, 38 RBCs, large occult blood, few mucus, cloudy urine, few bacteria, culture indicated. Alcohol level is less than 3, urine drug screen is positive for cocaine. CT scan of the brain showed no acute hemorrhage or mass-effect, CT scan of the abdomen and pelvis showed limited suboptimal examination performed without intravenous or oral contrast, study is degraded by motion artifact as well. Abnormal bowel gas pattern with multiple small air-fluid levels. The bowel is suboptimally visualized due to lack of contrast, as well as diffuse ascites. The patient's results were discussed with the patient, including the plan of care. I explained that further testing and/ or monitoring is indicated based on the patient's history, examination, and/ or laboratory findings. Therefore, I recommended admission for additional evaluation. The patient expressed understanding and was agreeable with this plan. The patient was admitted to the hospital in critical condition and sent to a bed under the care of the wrap knitting machine operator's service. Differential Diagnosis Differential Diagnosis: Encephalopathy, versus intracranial hemorrhage as the patient is on Coumadin according to the record, versus intoxication Medical Records Medical records reviewed: Yes I reviewed the patient's medical records. Lab Data Lab results reviewed: Yes I reviewed the patient's lab results. Result diagrams: 11/19/17 04:15 11/19/17 04:15 Lab Results 11/19/17 11/19/17 11/19/17 Range/Units 03:45 04:15 04:15 WBC 3.8 L (4.0-11.0) th/mm3 RBC 5.74 (4.50-5.90) mil/mm3 Hgb 16.7 (13.0-17.0) gm/dL Hct 53.1 H (39.0-51.0) % MCV 92.5 (80.0-100.0) fL MCH 29.0 (27.0-34.0) pg MCHC 31.3 L (32.0-36.0) % RDW 18.5 H (11.6-17.2) % Plt Count 92 L D (150-450) th/mm3 MPV 10.5 (7.0-11.0) fL Prelim Diff (Auto) Slide review pending Neut % (Auto) 76.3 H (16.0-70.0) % Lymph % (Auto) 16.0 (9.0-44.0) % [place] % (Auto) 6.0 (0.0-8.0) % Eos % (Auto) 0.8 (0.0-4.0) % Baso % (Auto) 0.9 (0.0-2.0) % Neut # (Auto) 2.9 (1.8-7.7) th/mm3 Lymph # (Auto) 0.6 L (1.0-4.8) th/mm3 [place] # (Auto) 0.2 (0.0-0.9) th/mm3 Eos # (Auto) 0.0 (0.0-0.4) th/mm3 Baso # (Auto) 0.0 (0.0-0.2) th/mm3 WBC Differential . Differential Comment . Platelet Estimate Low L (Normal) Platelet Morphology Enlarged H (Normal) PT 16.4 H (9.8-11.6) sec INR 1.6 Ratio APTT 28.7 (24.3-30.1) sec Sodium (136-145) meq/L Potassium (3.5-5.1) meq/L Chloride (98-107) meq/L Carbon Dioxide (21.0-32.0) meq/L Anion Gap (5-15) meq/L BUN (7-18) mg/dL Creatinine (0.60-1.30) mg/dL Estimated GFR (>89) mL/min POC Glucose 93 (68-110) mg/dl Random Glucose (74-106) mg/dL Calcium (8.5-10.1) mg/dL Magnesium (1.5-2.5) mg/dL Total Bilirubin (0.2-1.0) mg/dL AST (15-37) U/L ALT (12-78) U/L Alkaline Phosphatase (45-117) U/L Total Creatine Kinase (39-308) U/L CK-MB (CK-2) (0.5-3.6) ng/mL CK-MB (CK-2) % (0.0-4.0) % Troponin I (0.02-0.05) ng/mL B-Natriuretic Peptide (0-100) pg/mL Total Protein (6.4-8.2) g/dL Albumin (3.4-5.0) g/dL Lipase (73-393) U/L Urine Color (Yellw/Straw) Urine Clarity (Clear) Urine pH (5.0-8.5) Ur Specific [place] (1.002-1.035) Urine Protein (Neg-Trace) mg/dL Urine Glucose (UA) (Negative) mg/dL Urine Ketones (Negative) mg/dL Urine Occult Blood (Negative) Urine Nitrate (Negative) Urine Bilirubin (Negative) Urine Urobilinogen (Less than 2) mg/dL Ur Leukocyte Esterase (Negative) Urine RBC (0-3) /hpf Urine WBC (0-5) /hpf Ur Squamous Epith Cells (0-5) /hpf Amorphous Sediment (None) /hpf Urine Bacteria (None) /hpf Hyaline Casts (0-3) /lpf Urine Mucus (Occasional) /lpf Micro UA Comment Urine Culture Comments Urine Opiates Screen (Neg) Ur Barbiturates Screen (Neg) Ur Amphetamines Screen (Neg) U Benzodiazepines Scrn (Neg) Urine Cocaine Screen (Neg) U Cannabinoids Screen (Neg) Serum Alcohol (0-5) mg/dL 11/19/17 11/19/17 11/19/17 Range/Units 04:15 04:15 06:35 WBC (4.0-11.0) th/mm3 RBC (4.50-5.90) mil/mm3 Hgb (13.0-17.0) gm/dL Hct (39.0-51.0) % MCV (80.0-100.0) fL MCH (27.0-34.0) pg MCHC (32.0-36.0) % RDW (11.6-17.2) % Plt Count (150-450) th/mm3 MPV (7.0-11.0) fL Prelim Diff (Auto) Neut % (Auto) (16.0-70.0) % Lymph % (Auto) (9.0-44.0) % [place] % (Auto) (0.0-8.0) % Eos % (Auto) (0.0-4.0) % Baso % (Auto) (0.0-2.0) % Neut # (Auto) (1.8-7.7) th/mm3 Lymph # (Auto) (1.0-4.8) th/mm3 [place] # (Auto) (0.0-0.9) th/mm3 Eos # (Auto) (0.0-0.4) th/mm3 Baso # (Auto) (0.0-0.2) th/mm3 WBC Differential Differential Comment Platelet Estimate (Normal) Platelet Morphology (Normal) PT (9.8-11.6) sec INR Ratio APTT (24.3-30.1) sec Sodium 140 (136-145) meq/L Potassium 7.0 H* (3.5-5.1) meq/L Chloride 113 H (98-107) meq/L Carbon Dioxide 14.2 L (21.0-32.0) meq/L Anion Gap 13 (5-15) meq/L BUN 47 H (7-18) mg/dL Creatinine 2.41 H (0.60-1.30) mg/dL Estimated GFR 34 L (>89) mL/min POC Glucose (68-110) mg/dl Random Glucose 76 (74-106) mg/dL Calcium 8.2 L (8.5-10.1) mg/dL Magnesium 2.6 H (1.5-2.5) mg/dL Total Bilirubin 2.1 H (0.2-1.0) mg/dL AST 200 H (15-37) U/L ALT 72 (12-78) U/L Alkaline Phosphatase 71 (45-117) U/L Total Creatine Kinase 1302 H (39-308) U/L CK-MB (CK-2) 25.4 H (0.5-3.6) ng/mL CK-MB (CK-2) % 2.0 (0.0-4.0) % Troponin I 0.20 H (0.02-0.05) ng/mL B-Natriuretic Peptide 4307 H (0-100) pg/mL Total Protein 8.0 (6.4-8.2) g/dL Albumin 2.4 L (3.4-5.0) g/dL Lipase 184 (73-393) U/L Urine Color (Yellw/Straw) Urine Clarity (Clear) Urine pH (5.0-8.5) Ur Specific [place] (1.002-1.035) Urine Protein (Neg-Trace) mg/dL Urine Glucose (UA) (Negative) mg/dL Urine Ketones (Negative) mg/dL Urine Occult Blood (Negative) Urine Nitrate (Negative) Urine Bilirubin (Negative) Urine Urobilinogen (Less than 2) mg/dL Ur Leukocyte Esterase (Negative) Urine RBC (0-3) /hpf Urine WBC (0-5) /hpf Ur Squamous Epith Cells (0-5) /hpf Amorphous Sediment (None) /hpf Urine Bacteria (None) /hpf Hyaline Casts (0-3) /lpf Urine Mucus (Occasional) /lpf Micro UA Comment Urine Culture Comments Urine Opiates Screen Neg (Neg) Ur Barbiturates Screen Neg (Neg) Ur Amphetamines Screen Neg (Neg) U Benzodiazepines Scrn Neg (Neg) Urine Cocaine Screen Pos H (Neg) U Cannabinoids Screen Neg (Neg) Serum Alcohol Less than 3 (0-5) mg/dL 11/19/17 Range/Units 06:35 WBC (4.0-11.0) th/mm3 RBC (4.50-5.90) mil/mm3 Hgb (13.0-17.0) gm/dL Hct (39.0-51.0) % MCV (80.0-100.0) fL MCH (27.0-34.0) pg MCHC (32.0-36.0) % RDW (11.6-17.2) % Plt Count (150-450) th/mm3 MPV (7.0-11.0) fL Prelim Diff (Auto) Neut % (Auto) (16.0-70.0) % Lymph % (Auto) (9.0-44.0) % [place] % (Auto) (0.0-8.0) % Eos % (Auto) (0.0-4.0) % Baso % (Auto) (0.0-2.0) % Neut # (Auto) (1.8-7.7) th/mm3 Lymph # (Auto) (1.0-4.8) th/mm3 [place] # (Auto) (0.0-0.9) th/mm3 Eos # (Auto) (0.0-0.4) th/mm3 Baso # (Auto) (0.0-0.2) th/mm3 WBC Differential Differential Comment Platelet Estimate (Normal) Platelet Morphology (Normal) PT (9.8-11.6) sec INR Ratio APTT (24.3-30.1) sec Sodium (136-145) meq/L Potassium (3.5-5.1) meq/L Chloride (98-107) meq/L Carbon Dioxide (21.0-32.0) meq/L Anion Gap (5-15) meq/L BUN (7-18) mg/dL Creatinine (0.60-1.30) mg/dL Estimated GFR (>89) mL/min POC Glucose (68-110) mg/dl Random Glucose (74-106) mg/dL Calcium (8.5-10.1) mg/dL Magnesium (1.5-2.5) mg/dL Total Bilirubin (0.2-1.0) mg/dL AST (15-37) U/L ALT (12-78) U/L Alkaline Phosphatase (45-117) U/L Total Creatine Kinase (39-308) U/L CK-MB (CK-2) (0.5-3.6) ng/mL CK-MB (CK-2) % (0.0-4.0) % Troponin I (0.02-0.05) ng/mL B-Natriuretic Peptide (0-100) pg/mL Total Protein (6.4-8.2) g/dL Albumin (3.4-5.0) g/dL Lipase (73-393) U/L Urine Color [place] (Yellw/Straw) Urine Clarity Cloudy H (Clear) Urine pH 5.0 (5.0-8.5) Ur Specific [place] 1.019 (1.002-1.035) Urine Protein 500 or greater (Neg-Trace) mg/dL Urine Glucose (UA) Negative (Negative) mg/dL Urine Ketones Negative (Negative) mg/dL Urine Occult Blood Large H (Negative) Urine Nitrate Negative (Negative) Urine Bilirubin Negative (Negative) Urine Urobilinogen 4 or greater (Less than 2) mg/dL Ur Leukocyte Esterase Negative (Negative) Urine RBC 38 H (0-3) /hpf Urine WBC 18 H (0-5) /hpf Ur Squamous Epith Cells <1 (0-5) /hpf Amorphous Sediment Few H (None) /hpf Urine Bacteria Few H (None) /hpf Hyaline Casts 6 (0-3) /lpf Urine Mucus Few H (Occasional) /lpf Micro UA Comment Cath-culture ind Urine Culture Comments Cath-cult indicated Urine Opiates Screen (Neg) Ur Barbiturates Screen (Neg) Ur Amphetamines Screen (Neg) U Benzodiazepines Scrn (Neg) Urine Cocaine Screen (Neg) U Cannabinoids Screen (Neg) Serum Alcohol (0-5) mg/dL Imaging Data Radiologist's impression: Abdomen/Pelvis CT 11/19/17 03:55 CONCLUSION: 1. Limited, suboptimal examination performed without intravenous or oral contrast. The study is degraded by motion artifact as well. 2. Abnormal bowel gas pattern with multiple small air-fluid levels. The bowel is suboptimally visualized and evaluated secondary to the lack of the intravenous and oral contrast as well as diffuse ascites. This may represent a gastroenteritis and/or ileus. Obstruction is less likely. 3. Diffuse ascites throughout the abdomen and pelvis. 4. Moderate size right effusion which is increased from the prior study. There is a new small left effusion. 5. Moderate cardiomegaly. 6. No definite gallstones identified. Chest X-Ray 11/19/17 03:55 CONCLUSION: 1. Mild hazy opacity is now noted in the right perihilar region concerning for mild pulmonary edema. 2. The heart size remains mildly enlarged and appearance. Head CT 11/19/17 03:55 CONCLUSION: 1. No acute hemorrhage or mass effect. 2. Mild motion and streak artifact. . ECG Data Attestation: I personally reviewed and interpreted this ECG as follows: Prior ECG tracings: available for review Interpretation: The patient had an EKG done on arrival. The patient's EKG revealed a sinus rhythm with a heart rate of 82, QRS duration 126 ms, QTC 463 ms with a left anterior fascicular block noted, no ST segment depression is noted, T waves are inverted in aVL, V6. Nonspecific ST segment abnormalities were noted. This is compared to a prior EKG and is similar in appearance. Discharge Plan Discharge Disposition Patient Disposition: 30 Still Patient Discharge Details Diagnosis: Altered mental status, Acute exacerbation of CHF (congestive heart failure), Acute on chronic renal failure Physicians Team ED Provider: Elin Chavez Primary Care Provider: UNKNOWN, Attending Provider: Yovani,Lynda Status ED Status: Admitted Patient
[2017-11-19 04:28] LABS: Baso % (Auto) 0.9 % (0.0-2.0); Eos % (Auto) 0.8 % (0.0-4.0); Hematocrit 53.1 % (39.0-51.0); Hemoglobin 16.7 gm/dL (13.0-17.0); Lymph # (Auto) 0.6 th/mm3 (1.0-4.8); Mean Corpuscular HGB Conc 31.3 % (32.0-36.0); Mean Corpuscular Volume 92.5 fL (80.0-100.0); Mean Platelet Volume 10.5 fL (7.0-11.0); Mono # (Auto) 0.2 th/mm3 (0.0-0.9); Neut # (Auto) 2.9 th/mm3 (1.8-7.7); Neut % (Auto) 76.3 % (16.0-70.0); Platelet Count 92 th/mm3 (150-450); Red Blood Count 5.74 mil/mm3 (4.50-5.90); Red Cell Distribution Width 18.5 % (11.6-17.2); White Blood Count 3.8 th/mm3 (4.0-11.0)
[2017-11-19 04:47] LABS: Activated Partial Thrombo Time 28.7 sec (24.3-30.1); INR 1.6 Ratio; Prothrombin Time 16.4 sec (9.8-11.6)
--- NOTE | 2017-11-19 05:06 | XR ---
EXAM DATE: 11/19/2017 5:01 AM EDT AGE/SEX: 57 years / Male INDICATIONS: Short of breath. CLINICAL DATA: This is the patient's initial encounter. Patient reports that signs and symptoms have been present for 1 day and indicates a pain score of 0/10. MEDICAL/SURGICAL HISTORY: Hypertension. Cardiovascular disease. Diabetes. Coronary artery st ent. COMPARISON: C, CHEST 1V SINGLE AP, 11/03/2017. . FINDINGS: A single AP view of the chest demonstrates the lungs to be symmetrically aerated without evidence of mass. The heart size remains mildly prominent in size with mild hazy opacity now noted in the right p erihilar region. There is no effusion. Osseous structures are intact. CONCLUSION: 1. Mild hazy opacity is now noted in the right perihilar region concerning for mild pulmonary edema. 2. The heart size remains mildly enlarged and appearance. Electronically signed by: Rasta Bonilla MD 11/19/2017 5:05 AM EDT
[2017-11-19 05:08] LABS: Alanine Aminotransferase 72 U/L (12-78); Albumin 2.4 g/dL (3.4-5.0); Alkaline Phosphatase 71 U/L (45-117); Anion Gap 13 meq/L (5-15); Aspartate Aminotransferase 200 U/L (15-37); Blood Urea Nitrogen 47 mg/dL (7-18); Calcium 8.2 mg/dL (8.5-10.1); Carbon Dioxide 14.2 meq/L (21.0-32.0); Chloride 113 meq/L (98-107); Creatine Kinase 1302 U/L (39-308); Glomerular Filtration Rate 34 mL/min (>89); Glucose,Random 76 mg/dL (74-106); Lipase 184 U/L (73-393); Magnesium 2.6 mg/dL (1.5-2.5); Sodium 140 meq/L (136-145)
[2017-11-19] MEDS ORDERED: Calcium Chloride Inj 1 GM in Dextrose 5% in Water Inj 100 ML IV.SIG ONE ×2 (05:22)
[2017-11-19 05:33] LABS: Creatine Kinase MB 25.4 ng/mL (0.5-3.6)
[2017-11-19] MEDS ORDERED: Sodium Bicarbonate 8.4% Inj 50 MEQ/50 ML Syringe IV.PUSH ONE ×2 (05:42→05:43)
[2017-11-19] MEDS ORDERED: Sodium Polystyrene Sulfonate/Sorbitol Liq 15 GM/60 ML UDC PO ONE (05:48)
[2017-11-19] MEDS ORDERED: Bisacodyl 10 MG Supp RECTAL PRN (05:55)
--- NOTE | 2017-11-19 06:13 | CT ---
EXAM DATE: 11/19/2017 5:45 AM EDT AGE/SEX: 57 years / Male INDICATIONS: Altered mental status. CLINICAL DATA: This is the patient's initial encounter. Patient reports that signs and symptoms have been present for 1 day and indicates a pain score of Nonresponsive. MEDICAL/SURGICAL HISTORY: Cardiovascular disease. drug abuse. . stent RADIATION DOSE: 46.45 CTDI (mGy) COMPARISON: No prior exams available for comparison. TECHNIQUE: CT of the head without contrast. Using automated exposure control and adjustment of the mA and/or kV according to patient size, radiation dose was kept as low as reasonably achievable to ob tain optimal diagnostic quality images. DICOM format image data is available electronically for revi ew and comparison. FINDINGS: This study is degraded by mild motion and streak artifact. Cerebrum: The ventricles are normal for age. No evidence of midline shift, mass lesion, hemorrhage or acute infarction. No extraaxial fluid collections are seen. Posterior Fossa: The cerebellum and brainstem are intact. The 4th ventricle is midline. The cerebe llopontine angle is unremarkable. Extracranial: The visualized portion of the orbits is intact. Skull: The calvaria is intact. No evidence of skull fracture. CONCLUSION: 1. No acute hemorrhage or mass effect. 2. Mild motion and streak artifact. . Electronically signed by: Rasta Bonilla MD 11/19/2017 6:12 AM EDT
--- NOTE | 2017-11-19 06:18 | CT ---
EXAM DATE: 11/19/2017 5:52 AM EDT AGE/SEX: 57 years / Male INDICATIONS: Abdomen pain. CLINICAL DATA: This is the patient's initial encounter. Patient reports that signs and symptoms have been present for 1 day and indicates a pain score of 0/10. MEDICAL/SURGICAL HISTORY: Cardiovascular disease. Hypertension. Substance abuse Coronary rodolfo ry stent. RADIATION DOSE: 11.87 CTDI (mGy) COMPARISON: [facility] [place], CT ABDOMEN & PELVIS W CONTRAST, 10/18/2017. . TECHNIQUE: Multiple contiguous axial images were obtained through the abdomen. Images were obtained using multiple row detector helical technique. Using automated exposure control and adjustment of the mA and/or kV according to patient size, radiation dose was kept as low as reasonably achievable to o btain optimal diagnostic quality images. DICOM format image data is available electronically for rev iew and comparison. FINDINGS: The study is degraded by motion artifact. Lower Lungs: A moderate right pleural effusion is now noted which is increased in size from the prior study. There is a small left pleural effusion which is new. The heart size appears moderately enlarg ed. The gallbladder is suboptimally visualized secondary to motion adjacent fluid. No distinct gallst ones are identified. Liver: The liver has a homogeneous density without space-occupying lesion. There is no dilation of th e biliary tree. Spleen: Homogeneous density without enlargement. Pancreas: Unremarkable without mass or calcification. Kidneys: Normal in size and shape. No evidence of mass or hydronephrosis. Adrenal Glands: Unremarkable. Aorta: The aorta and proximal iliac vessels are grossly unremarkable without aneurysmal dilation. Bowel/Mesentery: No oral contrast was given limiting the sensitivity of the exam. The bowel loops ar e poorly distinguished from the mesentery and other structures are suboptimally visualized. There are multiple small air-fluid levels in the bowel. There is diffuse ascitic fluid throughout the abdomen and pelvis. Abdominal Wall: Intact. Retroperitoneum: No evidence of adenopathy in the retrocrural, para-aortic, or deep pelvic regions. Bladder: Contours are smooth. Reproductive Organs: No abnormal masses or calcifications seen. Inguinal: The inguinal region is unremarkable without evidence of adenopathy. Bony Structures: Unremarkable. CONCLUSION: 1. Limited, suboptimal examination performed without intravenous or oral contrast. The study is degr aded by motion artifact as well. 2. Abnormal bowel gas pattern with multiple small air-fluid levels. The bowel is suboptimally visual ized and evaluated secondary to the lack of the intravenous and oral contrast as well as diffuse asci evan. This may represent a gastroenteritis and/or ileus. Obstruction is less likely. 3. Diffuse ascites throughout the abdomen and pelvis. 4. Moderate size right effusion which is increased from the prior study. There is a new small left e ffusion. 5. Moderate cardiomegaly. 6. No definite gallstones identified. Electronically signed by: Rasta Bonilla MD 11/19/2017 6:17 AM EDT
[2017-11-19 06:59] LABS: Amphetamine Screen,Urine Neg (Neg); Barbiturate Screen,Urine Neg (Neg); Cannabinoid Screen,Urine Neg (Neg); Cocaine Screen,Urine Pos (Neg)
[2017-11-19 07:04] LABS: Amorphous Sediment,Urine Few /hpf; Bacteria,Urine Few /hpf; Bilirubin,Urine Negative (Negative); Clarity,Urine Cloudy (Clear); Color,Urine Amber (Yellw/Straw); Glucose,Urine (UA) Negative (Negative); Hyaline Casts,Urine 6 /lpf (0-3); Leukocyte Esterase,Urine Negative (Negative); Mucus,Urine Few /lpf (Occasional); Nitrite,Urine Negative (Negative); Specific Gravity,Urine 1.019 (1.002-1.035); Squamous Epithelial Cell,Urine <1 /hpf (0-5); Urobilinogen,Urine 4 or Greater mg/dL (Less than 2)
[2017-11-19 07:10] LABS: Opiate Screen,Urine Neg (Neg)
--- NOTE | 2017-11-19 07:59 | P.HPCC ---
History of Present Illness Service: Critical Care Medicine Primary Care Physician: UNKNOWN History of Present Illness: This is a 57yM with history of cardiomyopathy and an EF 20% who recently underwent mitral valve repair for severe MR. At that time, he had a preserved LVEF. However, he continued to use illicit cocaine, and on subsequent hospital admissions, his EF had fallen to 20%. He represents today with altered mental status, endorsing cocaine use. On further evaluation, he has a potassium of 7, Cr 2.4, AST/ALT 200/72, CK 1302, BNP 4307, co2 14. On my evaluation he is obtunded and agonally breathing, intermittently tachypneic. I performed bedside critical care echo which demonstrated a severe biventricular dysfunction and an EF < 10%. there was spontaneous echo contrast in the LV and the aortic valve appeared to open only minimally due to low-flow. Patient is grossly anasarcic with 3+ edema bilaterally up to the abdomen. he has JVD above the level of the mandible. I emergently intubated the patient (see separate procedure note for details). I emergently placed arterial, central lines, and dialysis catheter. potassium did not improve with medical therapy. we consulted nephrology for emergent HD. I also placed the patient on epinephrine drip for cardiogenic shock. due to the patient's mental status and clinical status, no additional information is available from him. ROS unobtainable. Inpatient Certification: I certify that the inpatient services were ordered in accordance with Medicare regulations governing the order. This includes certification that hospital inpatient services are reasonable and necessary and in the case of services not specified as inpatient-only under 42 CFR 419.22(n), that they are appropriately provided as inpatient services in accordance to with the 2-midnight benchmark under 43 CFR 412.3(e) Estimated Total Length of Stay (Days): 3 Plans for Post Hospital Care: Not yet determined Review of Systems unobtainable due to mental condition, unobtainable due to mental status PMFSH - History History Provided By: Medical Record - Medical / Surgical Hx Neg / Unobtainable Medical Problems Denied: Unable to Obtain Surgical History: Unable to Obtain - Medical History Medical History: Medical History (Last Updated 11/19/17 @ 04:22 by Elin Chavez MD) CHF (congestive heart failure) Cocaine use Hypertension - Surgical History Surgical History: Surgical History (Last Updated 11/03/17 @ 21:02 by Fritz Worthy RN) Hx of heart artery stent - Tobacco History Tobacco Use In Past 30 Days: Yes Smoking Status: Current every day smoker Tobacco Type: Cigarettes - Alcohol History How Often Do You Have a Drink Containing Alcohol: 4 or more times a week - Substance Use History Substance History: Active Abuse - Substance Use Type Crack/Cocaine Status: Active Route Used: Inhalation - Travel History Recent Travel in the [place] Within the Last 8 Weeks: No Recent Travel Out of the Country Within the Last 8 Weeks: No - Immunization History Tetanus Immunization: Unsure Hx Influenza Vaccine This Season: No Medications and Allergies Active Medications: Active Medications Acetaminophen (Tylenol) 650 mg PO Q6H PRN PRN Reason: PAIN 1-10 AND/OR FEVER >101F Al Hydroxide/Mg Hydroxide (Milk Of Magnesia Liq) 30 ml PO Q12H PRN PRN Reason: Mild Constipation Albuterol (Albuterol Neb (Prn)) 2.5 mg NEB Q2HR NEB PRN PRN Reason: SHORTNESS OF BREATH/WHEEZING Bisacodyl (Dulcolax Supp) 10 mg RECTAL DAILY PRN PRN Reason: SEVERE CONSITIPATION Chlorhexidine Gluconate (Chlorhexidine 2% Cloth) 3 pack TOPICAL DAILY@0400 RUDDY Stop: 11/25/17 03:59 Chlorhexidine Gluconate (Chlorhexidine 2% Cloth) 3 pack TOPICAL DAILY@0400 PRN PRN Reason: Extra cloth needed Stop: 11/25/17 03:59 Famotidine (Pepcid Pf Inj) 10 mg IV.PUSH Q12HR RUDDY Lactulose (Lactulose Liq) 30 ml PO DAILY PRN PRN Reason: SEVERE CONSITIPATION Senna/Docusate Sodium (Irma-Colace) 1 tab PO BID RUDDY Sennosides (Senokot) 17.2 mg PO Q12H PRN PRN Reason: Moderate Constipation Sodium Chloride (Ns Flush) 2 ml IV.FLUSH BID RUDDY Sodium Chloride (Ns Flush) 2 ml IV.FLUSH PRN PRN PRN Reason: FLUSH AFTER USING IV ACCESS Allergies Allergy/AdvReac Type Severity Reaction Status Date / Time No Known Allergies Allergy Unverified 11/19/17 04:45 Home Medications Medication Instructions Recorded Confirmed Type albuterol sulfate 2 puff INHALATION Q4-6H PRN 11/03/17 11/19/17 History amlodipine [Norvasc] 5 mg PO DAILY 11/03/17 11/19/17 History carvedilol 12.5 mg PO BID 11/03/17 11/19/17 History furosemide 20 mg PO DAILY 11/03/17 11/19/17 History lisinopril PO DAILY 11/03/17 History warfarin 5 mg PO Q OTHER DAY 11/03/17 11/19/17 History Results - Labs CBC & Chem 7: 11/19/17 04:15 11/19/17 09:32 Labs: Short CBC 11/19/17 Range/Units 04:15 WBC 3.8 L (4.0-11.0) th/mm3 Hgb 16.7 (13.0-17.0) gm/dL Hct 53.1 H (39.0-51.0) % Plt Count 92 L D (150-450) th/mm3 BMP 11/19/17 11/19/17 04:15 06:35 Sodium 140 Potassium 7.0 H* 6.9 H* Chloride 113 H Carbon Dioxide 14.2 L BUN 47 H Creatinine 2.41 H Calcium 8.2 L Cardiac Enzymes 11/19/17 Range/Units 04:15 Total Creatine Kinase 1302 H (39-308) U/L CK-MB (CK-2) 25.4 H (0.5-3.6) ng/mL Troponin I 0.20 H (0.02-0.05) ng/mL Liver Function 11/19/17 Range/Units 04:15 Total Bilirubin 2.1 H (0.2-1.0) mg/dL AST 200 H (15-37) U/L ALT 72 (12-78) U/L Alkaline Phosphatase 71 (45-117) U/L Albumin 2.4 L (3.4-5.0) g/dL Urine 11/19/17 Range/Units 06:35 Urine Color Zakia (Yellw/Straw) Urine Clarity Cloudy H (Clear) Urine pH 5.0 (5.0-8.5) Ur Specific Garrison 1.019 (1.002-1.035) Urine Protein 500 or greater (Neg-Trace) mg/dL Urine Glucose (UA) Negative (Negative) mg/dL - Imaging Impressions Abdomen/Pelvis CT 11/19/17 03:55 CONCLUSION: 1. Limited, suboptimal examination performed without intravenous or oral contrast. The study is degraded by motion artifact as well. 2. Abnormal bowel gas pattern with multiple small air-fluid levels. The bowel is suboptimally visualized and evaluated secondary to the lack of the intravenous and oral contrast as well as diffuse ascites. This may represent a gastroenteritis and/or ileus. Obstruction is less likely. 3. Diffuse ascites throughout the abdomen and pelvis. 4. Moderate size right effusion which is increased from the prior study. There is a new small left effusion. 5. Moderate cardiomegaly. 6. No definite gallstones identified. Chest X-Ray 11/19/17 03:55 CONCLUSION: 1. Mild hazy opacity is now noted in the right perihilar region concerning for mild pulmonary edema. 2. The heart size remains mildly enlarged and appearance. Head CT 11/19/17 03:55 CONCLUSION: 1. No acute hemorrhage or mass effect. 2. Mild motion and streak artifact. . Exam Vital signs: Vital Signs 11/19/17 04:41 11/19/17 05:35 11/19/17 05:37 Temperature 36.8 C Pulse Rate 83 85 85 Respiratory Rate 28 H 20 20 Blood Pressure 130/80 135/86 Pulse Oximetry 95 100 11/19/17 05:55 Temperature Pulse Rate 78 Respiratory Rate 24 Blood Pressure 132/97 H Pulse Oximetry Intake & Output 11/18/17 11/19/17 11/19/17 18:59 06:59 18:59 Weight 70 kg Narrative: gen: middle-aged appearing male, lying in bed, in extremis heent: nc. at. perrl. mucous membranes dry. neck: +JVD above the level of the mandible. chest: labored, agonal. tachypneic. equal chest rise. nc o2. cv: normal rate, regular rhythm. sinus. abd: soft, nontender, nondistended, no guarding. extr: 3+ peripheral edema. distal pulses thready, 1+. neuro: RASS -4. moves all extremities. does not follow commands. not arousable to sternal rub. GCS 7 (E1,V2,M4). Septic Shock Reassessment Septic shock perfusion: reassessment completed Caprini VTE Risk Assessment Caprini VTE Risk Assessment: Moderate/High Risk (score >= 2) Caprini Risk Assessment Model: Point Value = 1 Point Value = 2 Point Value = 3 Point Value = 5 Age 41-60 Minor surgery BMI > 25 kg/m2 Swollen legs Varicose veins or History of unexplained or recurrent spontaneous Oral contraceptives or hormone replacement Sepsis (< 1 month) Serious lung disease, including pneumonia (< 1 month) Abnormal pulmonary function Acute myocardial infarction Congestive heart failure (< 1 month) History of inflammatory bowel disease Medical patient at bed rest Age 61-74 Arthroscopic surgery Major open surgery (> 45 min) Laparoscopic surgery (> 45 min) Malignancy Confined to bed (> 72 hours) Immobilizing plaster cast Central venous access Age >= 75 History of VTE Family history of VTE Factor V Leiden Prothrombin [id number] Lupus anticoagulant Anticardiolipin antibodies Elevated serum homocysteine Heparin-induced thrombocytopenia Other congenital or acquired thrombophilia Stroke (< 1 month) Elective arthroplasty Hip, pelvis, or leg fracture Acute spinal cord injury (< 1 month) Prophylaxis Regimen: Total Risk Factor Score Risk Level Prophylaxis Regimen 0-1 Low Early ambulation 2 Moderate Order ONE of the following: *Sequential Compression Device (SCD) *Heparin 5000 units SQ BID 3-4 Higher Order ONE of the following medications: *Heparin 5000 units SQ TID *Enoxaparin/Lovenox 40 mg SQ daily (WT < 150 kg, CrCl > 30 mL/min) *Enoxaparin/Lovenox 30 mg SQ daily (WT < 150 kg, CrCl > 10-29 mL/min) *Enoxaparin/Lovenox 30 mg SQ BID (WT < 150 kg, CrCl > 30 mL/min) AND/OR *Sequential Compression Device (SCD) 5 or more Highest Order ONE of the following medications: *Heparin 5000 units SQ TID (Preferred with Epidurals) *Enoxaparin/Lovenox 40 mg SQ daily (WT < 150 kg, CrCl > 30 mL/min) *Enoxaparin/Lovenox 30 mg SQ daily (WT < 150 kg, CrCl > 10-29 mL/min) *Enoxaparin/Lovenox 30 mg SQ BID (WT < 150 kg, CrCl > 30 mL/min) AND *Sequential Compression Device (SCD) Assessment and Plan - Assessment and Plan Plan: Assessment: 57yM with severe cardiomyopathy and ongoing cocaine abuse who presents in severe cardiogenic shock combined with active cocaine intoxication. Very critically ill, in extremis, in multiorgan failure. Overall, this is a patient whose cocaine use has complicated his cardiac problems to the point that this is now likely an end-stage process. will consult palliative care to assist the family, but this may be a fatal hospitalization for him due to his ongoing cocaine abuse and now multiorgan failure. Plan by systems: Neurologic: Acute toxic encephalopathy Acute cocaine intoxication Acute metabolic encephalopathy secondary to shock Frequent neurochecks Avoid long-acting sedatives Watch for withdrawal symptoms Versed infusion for goal RASS -2 Respiratory: Acute hypoxic and hypercarbic respiratory failure Acute severe pulmonary edema Probable Crack Lung Vent bundle Head of bed elevated Nebs Wean FiO2 for goal SPO2 greater than 90% Asymmetric pulmonary consolidation pattern is consistent with chronic crack cocaine use No SBT today given active shock We will be forced to dialyze patient for volume overload and pulmonary edema Cardiovascular: Cardiogenic shock Acute severe systolic congestive heart failure exacerbation Acute type II non-ST elevation myocardial infarction secondary to demand ischemia known prior EF 20% (09/2017), now by bedside echo appears to be acutely < 10% likely secondary to chronic cocaine use superimposed on cardiomyopathy. emergent HD for fluid removal and preload optimization epinephrine and milrinone to assist with cardiac output trend cvp trend lactates watch uop- currently oligoanuric Renal: Acute kidney injury Most likely secondary to cardiogenic shock Smith has been placed Every hour urine outputs Emergent HD Nephrology consult -- Strict I/Os FEN/GI: Severe life-threatening hyperkalemia Severe intravascular volume overload Severe acute protein calorie malnutrition Lactic acidosis Severe anion gap metabolic acidosis N.p.o. while in shock Medical management is failed for hyperkalemia Nephrology consult with emergent dialysis Trend daily BMP, mag, phosphorus 2 A of bicarb IV 1 Trend lactates Trend ABG Heme/ID: Daily CBC No infectious etiology suspected this time Patient has severe diarrhea which is most likely ischemic colitis secondary to severe cardiogenic shock Endocrine: Acute hypoglycemia, severe D10W at 30 miles an hour Frequent glycemic checks -- SSI Prophylaxis: GI Prophylaxis Pepcid IV DVT Prophylaxis -- SCDs Subcu heparin Lines: 11/19 right brachial arterial line 11/19 right subclavian 7 Slovak triple-lumen catheter 11/19 right IJ 14 Slovak 20 cm dialysis catheter 11/19 Smith Dispo: Admit ICU. Very critically ill. This patient remains critically ill with one or more organ systems which are or may become a threat to life. I have spent in excess of 91 minutes discontinuously in the care and management of this patient. This time is exclusive of procedures, and includes, but is not limited to, evaluation of the patient, review of the medical record, discussions with family, consultants, nursing staff, or respiratory therapy, and documentation in the medical record.
[2017-11-19] MEDS ORDERED: Lidocaine 2% 100 MG/5 ML Syringe ONE (08:07)
[2017-11-19 08:24] LABS: ABG Base Excess -8.4 mmol/L (-2-2); ABG PCO2 40 mmHg (38-42); ABG PO2 129 mmHG (61-120)
[2017-11-19] MEDS ORDERED: FUROSEMIDE ONE (08:29)
[2017-11-19] MEDS ORDERED: Midazolam Inj 5 MG/ML 1 ML Vial ONE (08:29)
[2017-11-19] MEDS: Famotidine PF Inj 20 MG/2 ML Vial IV.PUSH SCH ×3 (09:20→20:13)
[2017-11-19] MEDS ORDERED: Heparin 10,000 UNITS/10 ML Vial (for IV use) OTHER PRN ×2 (09:26)
[2017-11-19] MEDS ORDERED: Acetaminophen 325 MG Tablet PO PRN (09:26)
[2017-11-19] MEDS ORDERED: Sod Chloride 0.9% Inj 1,000 ML OTHER PRN ×2 (09:26)
[2017-11-19] MEDS ORDERED: Gelatin 12 MM/7 MM Topical Foam TOPICAL PRN (09:26)
[2017-11-19] MEDS ORDERED: Sod Chloride 0.9% Inj 1,000 ML IV.CONT PRN (09:26)
[2017-11-19 09:29] LABS: ABG Base Excess -1.4 mmol/L (-2-2); ABG PCO2 29 mmHg (38-42); ABG PO2 293 mmHG (61-120)
[2017-11-19] MEDS: Senna/Docusate Sodium 8.6/50 MG Tablet PO SCH ×2 (09:30→20:14)
--- NOTE | 2017-11-19 09:34 | XR ---
EXAM DATE: 11/19/2017 9:28 AM EDT AGE/SEX: 57 years / Male INDICATIONS: Post intubation, central line and OG tube placement. CLINICAL DATA: This is the patient's subsequent encounter. Patient reports that signs and symptoms h ave been present for 1 month and indicates a pain score of Nonresponsive. MEDICAL/SURGICAL HISTORY: . Hypertension. Cardiovascular disease. Diabetes. . Coronary artery stent COMPARISON: C, CHEST 1V SINGLE AP, 11/19/2017. . FINDINGS: Patient has been intubated with ET tube at the level of the clavicles. There is an NG tube coursing b eyond the GE junction with tip omitted from the image. There is a right IJ dialysis catheter with tip in the proximal right atrium. There is a right subclavian central line with tip in the cavoatrial ju nction. Persistent diffuse hazy opacity throughout the right mid to lower lung zones. Left lung is cl ear. Cardiac lead is mildly enlarged. Central pulmonary vascularity is indistinct. Remainder of the e xam is unchanged. CONCLUSION: 1. ETT in good position. NGT beyond the GE junction. Central lines in good position. 2. Persistent atypical pulmonary edema pattern. Electronically signed by: Yann Camacho MD 11/19/2017 9:33 AM EDT
[2017-11-19 10:29] LABS: Potassium 5.6 meq/L (3.5-5.1)
[2017-11-19 10:30] LABS: Troponin I 0.25 ng/mL (0.02-0.05)
[2017-11-19] MEDS: Midazolam 50 MG/50 ML Inj 50 MG/50 ML BAG IV.CONT PRN ×3 (11:00→21:52)
[2017-11-19] MEDS ORDERED: Dextrose 50% in Water Syringe 50 ML ONE (11:06)
[2017-11-19] MEDS ORDERED: niCARdipine Inj 25 MG in Sodium Chlor 0.9% Inj 240 ML IV.CONT PRN (11:50)
--- NOTE | 2017-11-19 12:02 | P.PCN ---
Date of procedure: 11/19/17 Pre-op diagnosis: cardiogenic shock Post-op diagnosis: same Procedure: Procedure: Arterial Line Placement Right brachial arterial line with ultrasound guidance Diagnosis: Cardiogenic shock Indications: Need for beat to beat hemogenic monitoring Consent: Emergent Description of the Procedure: The right arm was prepped and draped sterilely. 1% lidocaine was used for local anesthesia. Ultrasound guidance was used to identify the right brachial artery. The anatomy of the right arm was normal. Under direct ultrasound guidance, the artery was located and a needle was advanced into the artery. A 20 gauge, 12 cm catheter was advanced into the artery using a modified Seldinger technique. The catheter was sutured to the skin and a sterile dressing was applied. The catheter was connected to a pressure transducer and an arterial waveform was noted. There were no immediate complications noted. There was minimal EBL. I personally performed the procedure.
--- NOTE | 2017-11-19 12:07 | P.PCN ---
Date of procedure: 11/19/17 Pre-op diagnosis: Acute hypoxic and hypercarbic respiratory failure Post-op diagnosis: same Procedure: Endotracheal Intubation Diagnosis: Acute hypoxic hypercarbic respiratory failure secondary to cocaine overdose and cardiogenic shock Indications: Acute hypoxic and hypercarbic respiratory failure Consent: Emergent Anesthesia: Lidocaine 100 mg IV, epinephrine 16 mcg IV, rocuronium 100 mg IV Description of the Procedure: The patient was positioned in the sniffing position. Pre-oxygenation was performed using a [id number]. Anesthesia was induced via rapid sequence. A Jimenez #2 Was used for laryngoscopy and a Grade I view was obtained. A 8.5 cuffed endotracheal tube was inserted atraumatically through the vocal cords. Confirmation of correct endotracheal tube placement was made by equal and bilateral breath sounds and colorimetric CO2 detection. The endotracheal tube was secured at 24 cm at the teeth. There were no immediate complications noted. Patient was hemodynamically unstable before, during, and after the procedure. There were no changes in the hemodynamics were noted. Patient remained on epinephrine infusion and acutely unstable. A chest x-ray has been ordered. I personally performed the procedure.
--- NOTE | 2017-11-19 12:08 | P.PCN ---
Date of procedure: 11/19/17 Pre-op diagnosis: Cardiogenic shock Post-op diagnosis: same Procedure: Central Line Procedure Note Right subclavian 7 Tajik 20 cm triple-lumen catheter Diagnosis: Cardiogenic shock Indications: Need for central pressure monitoring and highly potent vasoactive substances Consent: Emergent Anesthesia: Versed IV Description of the Procedure: The patient was placed in the supine, mild- Trendelenburg position. The area was prepped and draped sterilely. A 19g needle was inserted under negative pressure aspiration and dark venous blood was obtained. A guidewire was inserted easily without resistance. A small incision was made using a #11 blade. Using a modified Seldinger technique, the dilator and 7 Tajik, 20 cm catheter were advanced over the guidewire without resistance. All ports were aspirated and flushed, and had brisk blood return. The line was secured at the skin using a non-suture StatLock device. A Biopatch and Transparent sterile dressing were applied. There were no immediate complications noted. There was minimal EBL. The patient tolerated the procedure well. Ultrasound guidance was not used for this procedure A Chest x-ray has been ordered. I personally performed the procedure.
--- NOTE | 2017-11-19 12:10 | P.PCN ---
Date of procedure: 11/19/17 Pre-op diagnosis: Severe life-threatening hyperkalemia not responsive to medical therapies Post-op diagnosis: same Procedure: Central Line Procedure Note Right IJ 14 Azeri 20 cm dialysis catheter Diagnosis: Severe life-threatening hyperkalemia Indications: Severe life-threatening hyperkalemia in the setting of acute kidney injury and cardiogenic shock not responsive to conservative medical therapies Consent: Emergent Anesthesia: Versed IV Description of the Procedure: The patient was placed in the supine, mild- Trendelenburg position. The area was prepped and draped sterilely. A 19g needle was inserted under negative pressure aspiration and dark venous blood was obtained. A guidewire was inserted easily without resistance. A small incision was made using a #11 blade. Using a modified Seldinger technique, the dilator and 14 Azeri, 20 cm catheter were advanced over the guidewire without resistance. All ports were aspirated and flushed, and had brisk blood return. The line was secured at the skin using 2-0 silk interrupted sutures. Suture was used in place of a non-suture StatLock device due to the size and configuration of the catheter. A Biopatch and Transparent sterile dressing were applied. There were no immediate complications noted. There was minimal EBL. The patient tolerated the procedure well. Ultrasound Guidance: Ultrasound guidance was used to identify the right internal jugular vein. The vascular anatomy of the right anterior neck was normal. The vessel was cannulated under direct, real-time ultrasound visualization. After placement of the guidewire, confirmation of the guidewire in the lumen of the vessel was made using ultrasound visualization, before dilation of the tract. A Chest x-ray has been ordered. I personally performed the procedure.
[2017-11-19] MEDS: Milrinone Inj 20 MG in Sodium Chlor 0.9% Inj 80 ML IV.CONT SCH ×2 (12:14→20:48)
--- NOTE | 2017-11-19 13:57 | P.CONPAL ---
Consult Service: Palliative Care Requesting Physician: John Gold Reason for Consult: a. To assist with evaluation and management of symptoms including: b. To assist medical decision maker(s) with: better understanding of current medical conditions; weighing benefits/burdens of medical treatment options; making medical treatment decisions. Primary Care Provider: UNKNOWN History of Present Illness History of Present Illness: This is a 57-year-old -L[place]anese male admitted with altered mental status found to have non-ST elevation myocardial infarction type II due to congestive heart failure, cardiomyopathy possibly due to cocaine abuse, EF 20-25%, polysubstance abuse. This is his fourth admission in 2018. He was initially admitted July 09, 2017 with chest pain and underwent a minimally invasive mitral valve repair with complex reconstruction of the posterior leaflet, ring annuloplasty with a 30 [place] ring and SHAYAN. He was discharged home 07/19 and underwent cardiac rehab. He was readmitted again 10/06 with chest pain. He admitted to drug abuse stating that his prior marijuana joint "may have been laced with cocaine". On 10/09/2017 he underwent left heart catheterization during admission showing left main to be a large sized vessel with no significant disease bifurcating into an LAD and circumflex. LAD is a normal sized vessel with mild luminal irregularities giving off 2 major diagonals with no disease. Left circumflex shows a normal sized vessel with one major obtuse marginal with an upper and lower branch and no disease RCA is a normal-sized vessel with mild luminal irregularities with a high bifurcation of the PDA and the posterior lateral branch with no disease. He was cleared for discharge home on 10/10. He was readmitted 10/18 with a complaint of chest pain, shortness of breath and abdominal pain and diagnosed with pneumonia. He signed out AGAINST MEDICAL ADVICE on 10/24/2017. He was readmitted again on 11/19/2017 with altered mental status. His blood sugar was found to be in the low 50s and he received dextrose by the ambulance services with slow improvement in his mentation. Initial reported GCS was 11. Patient arrived with a GCS of 14 at [facility] and reported that he had been using cocaine as well as using something else, however the ED physician could not understand what he was saying. EKG showed sinus rhythm, rate [address] depression noted, inverted T waves in aVL, V6, similar to prior EKGs. The patient presented with agitation spontaneously moving all extremities. Repeat blood sugar was in the 90s. He denied any chest pain or shortness of breath. He was given 1 mg of Ativan IV due to agitation and nitroglycerin 1 inch paste to the chest wall. Laboratory studies showed a white blood cell count of 3.8, platelets 92, hemoglobin 16.7, hematocrit 53.1, sodium 140, chloride 113, carbon dioxide 14.2, BUN 47, troponin of 0.20, CPK 1302, total bilirubin 2.1, potassium 7.0, creatinine 2.41 , magnesium 2.6, AST 200, B natruretic peptide 4307. He received Lasix 40 mg IV due to pulmonary edema seen on chest x-ray and calcium chloride 1 g IV, 2 A of bicarb due to acidosis. Urinalysis shows 18 WBCs, 38 RBCs, large occult blood, few bacteria culture indicated. Alcohol level is less than 3, urine drug screen is positive for cocaine. CT scan of the brain showed no acute hemorrhage or mass-effect. CT scan of the abdomen and pelvis showed limited suboptimal examination performed without intravenous or oral contrast, both studies degraded by motion artifact. Abnormal bowel gas pattern with multiple small air-fluid levels, suboptimally visualized due to lack of contrast as well as diffuse ascites. [facility] service was consulted for management. Bedside critical care echo demonstrating severe biventricular dysfunction with an EF of less than 10%. There was noted spontaneous echo contrast in the LV and the aortic valve appeared to open only minimally due to low flow. Patient presenting with gross anasarca, 3+ edema bilaterally up to the abdomen with JVD above the level of the mandible. Patient was emergently intubated with placement of arterial, central lines and dialysis catheter. Maximal medical therapy did not improve hyperkalemia and nephrology was consulted for emergent hemodialysis. Patient was placed on an epinephrine drip for cardiogenic shock. Palliative care was consulted to assist with symptom management and goals of care. . Function/Cognitive Trajectory: Over the last 7 months, the patient has had multiple hospital admissions each with further decompensation. He has continued to use cocaine, marijuana, tobacco and another unidentified substance, during which time his ejection fraction decreased from a normal level of 50-55% in June 2017 when he had his mitral valve repair to less than 10% on this admission, requiring inotropic support due to his severe heart failure. In addition to heart failure he is now developing kidney failure, likely due to cardiogenic shock. He is receiving hemodialysis for hyperkalemia and fluid removal. . Review of Systems Patient is intubated, nonverbal and unable to provide their own ROS. 10 part ROS taken as best as possible from medical record and available family. Cardiovascular: Reports generalized swelling (2+ dependent edema) Psychiatric: Reports confusion PMFSH - History History Provided By: Medical Record - Medical / Surgical Hx Neg / Unobtainable Medical Problems Denied: Unable to Obtain - Medical History Medical History: Medical History (Last Updated 11/19/17 @ 13:47 by ANDREW Arguello) COPD (chronic obstructive pulmonary disease) Diabetes Gout Non-ischemic cardiomyopathy CHF (congestive heart failure) Cocaine use Hypertension - Surgical History Surgical History: Surgical History (Last Updated 11/19/17 @ 13:47 by ANDREW Arguello) H/O mitral valve repair Hx of heart artery stent - Family History Family History: Family History (Last Updated 11/19/17 @ 13:41 by ANDREW Arguello) Mother Breast cancer Father Cancer - Tobacco History Tobacco Use In Past 30 Days: Yes Smoking Status: Current every day smoker (Smoked 1 pack per day since age 19) Tobacco Type: Cigarettes - Alcohol History How Often Do You Have a Drink Containing Alcohol: 4 or more times a week (Drank an average of a 6 pack of beer a day) - Substance Use History Substance History: Active Abuse (History of cocaine, marijuana use) - Substance Use Type Crack/Cocaine Status: Active Route Used: Inhalation - Travel History Recent Travel in the [place] Within the Last 8 Weeks: No Recent Travel Out of the Country Within the Last 8 Weeks: No - Immunization History Tetanus Immunization: Unsure Hx Influenza Vaccine This Season: No Medications and Allergies Active Medications: Active Medications Acetaminophen (Tylenol) 650 mg PO Q6H PRN PRN Reason: PAIN 1-10 AND/OR FEVER >101F Acetaminophen (Tylenol) 650 mg PO UNSCH PRN PRN Reason: SEE LABEL COMMENTS Al Hydroxide/Mg Hydroxide (Milk Of [place] Liq) 30 ml PO Q12H PRN PRN Reason: Mild Constipation Albuterol (Albuterol Neb (Prn)) 2.5 mg NEB Q2HR NEB PRN PRN Reason: SHORTNESS OF BREATH/WHEEZING Bisacodyl (Dulcolax Supp) 10 mg RECTAL DAILY PRN PRN Reason: SEVERE CONSITIPATION Chlorhexidine Gluconate (Chlorhexidine 2% Cloth) 3 pack TOPICAL DAILY@0400 RUDDY Stop: 11/25/17 03:59 Chlorhexidine Gluconate (Chlorhexidine 2% Cloth) 3 pack TOPICAL DAILY@0400 PRN PRN Reason: Extra cloth needed Stop: 11/25/17 03:59 Famotidine (Pepcid Pf Inj) 10 mg IV.PUSH Q12HR [facility] Last Admin: 11/19/17 09:20 Dose: 10 mg Famotidine (Pepcid Pf Inj) 20 mg IV.PUSH DAILY [facility] Gelatin (Gelfoam 12 Mm/7 Mm Topical) 1 foam TOPICAL PRN PRN PRN Reason: help stop bleeding from site Gentamicin Sulfate (Gentamicin Inj) 20 mg OTHER WITH DIALYSIS PRN PRN Reason: Dwell Gentamycin Lock Heparin Sodium (Porcine) (Heparin Inj) 8,000 units OTHER WITH DIALYSIS PRN PRN Reason: for machine prime Heparin Sodium (Porcine) (Heparin Inj) 1,000 units OTHER WITH DIALYSIS PRN PRN Reason: Dwell Heparin to Fill Catheter Heparin Sodium (Porcine) (Heparin Inj) 5,000 units SQ Q8HR [facility] Epinephrine HCl 4 mg/ Dextrose 250 mls @ 37.5 mls/hr IV.CONT TITRATE PRN; Protocol PRN Reason: See protocol Last Titration: 11/19/17 09:35 Dose: 3 mcg/min, 11.25 mls/hr Norepinephrine Bitartrate 8 mg (/ Dextrose) 250 mls @ 3.75 mls/hr IV.CONT TITRATE PRN; Protocol PRN Reason: See Protocol Midazolam HCl (Versed Inj) 50 mg in 50 mls @ 2 mls/hr IV.CONT TITRATE PRN; Protocol PRN Reason: Per Protocol Sodium Chloride (Ns Inj) 1,000 mls @ 0 mls/hr OTHER .Q0M PRN PRN Reason: for prime and rinse back Sodium Chloride (Ns Inj) 1,000 mls @ 200 mls/hr OTHER .Q5H PRN PRN Reason: for dialyzer flush PRN Sodium Chloride (Ns Inj) 1,000 mls @ 0 mls/hr IV.CONT .Q0M PRN PRN Reason: hypotension / volume replace Albumin Human (Flexbumin 25% Inj) 100 mls @ 60 mls/hr IV.SIG WITH DIALYSIS PRN PRN Reason: hypotension / volume replace Milrinone Lactate 20 mg/ (Sodium Chloride) 100 mls @ 10.5 mls/hr IV.CONT .Q9H32M [facility]; Protocol Last Admin: 11/19/17 12:14 Dose: 0.5 mcg/kg/min, 10.5 mls/hr Nicardipine HCl 25 mg/ Sodium (Chloride) 250 mls @ 50 mls/hr IV.CONT TITRATE PRN; Protocol PRN Reason: Per Protocol Last Admin: 11/19/17 12:14 Dose: 5 mg/hr, 50 mls/hr Lactulose (Lactulose Liq) 30 ml PO DAILY PRN PRN Reason: SEVERE CONSITIPATION Mannitol (Mannitol Inj) 12.5 gm IV.PUSH UNSCH PRN PRN Reason: hypotension / volume replace Nitroglycerin (Nitrostat Sl) 0.4 mg SL Q5M PRN PRN Reason: CHEST PAIN Ondansetron HCl (Zofran Odt) 4 mg PO UNSCH PRN PRN Reason: NAUSEA OR VOMITING Senna/Docusate Sodium (Irma-Colace) 1 tab PO BID [facility] Last Admin: 11/19/17 09:30 Dose: Not Given Sennosides (Senokot) 17.2 mg PO Q12H PRN PRN Reason: Moderate Constipation Sodium Chloride (Ns Flush) 2 ml IV.FLUSH BID [facility] Last Admin: 11/19/17 09:30 Dose: 2 ml Sodium Chloride (Ns Flush) 2 ml IV.FLUSH PRN PRN PRN Reason: FLUSH AFTER USING IV ACCESS Sodium Chloride (Ns Flush) 5 ml IV.FLUSH PRN PRN PRN Reason: flush each lumen during HD Terbutaline Sulfate (Brethine Inj) 1 mg SQ UNSCH PRN PRN Reason: For Extravasation Allergies Allergy/AdvReac Type Severity Reaction Status Date / Time No Known Allergies Allergy Unverified 11/19/17 04:45 Home Medications Medication Instructions Recorded Confirmed Type albuterol sulfate 2 puff INHALATION Q4-6H PRN 11/03/17 11/19/17 History amlodipine [Norvasc] 5 mg PO DAILY 11/03/17 11/19/17 History carvedilol 12.5 mg PO BID 11/03/17 11/19/17 History furosemide 20 mg PO DAILY 11/03/17 11/19/17 History lisinopril PO DAILY 11/03/17 History warfarin 5 mg PO Q OTHER DAY 11/03/17 11/19/17 History Advance Directives Living Will: No Healthcare Surrogate: No Power of Director [place]: No Physical Exam Vital Signs: Vital Signs - 24 hr 11/19/17 04:41 11/19/17 05:35 11/19/17 05:37 Temperature 98.2 F Pulse Rate 83 85 85 Respiratory Rate 28 H 20 20 Blood Pressure 130/80 135/86 Pulse Oximetry 95 100 11/19/17 05:55 11/19/17 07:35 11/19/17 08:00 Temperature Pulse Rate 78 79 Respiratory Rate 24 11 L 22 Blood Pressure 132/97 H 145/104 H Pulse Oximetry 100 11/19/17 08:15 11/19/17 09:00 11/19/17 10:00 Temperature Pulse Rate 78 79 Respiratory Rate 24 24 22 Blood Pressure 127/97 H 141/104 H Pulse Oximetry 100 100 100 11/19/17 10:49 11/19/17 11:25 11/19/17 11:30 Temperature 91.6 F L Pulse Rate 79 Respiratory Rate 22 22 Blood Pressure 141/104 H Pulse Oximetry 100 98 I&O: Intake & Output 11/17/17 11/18/17 11/19/17 11/20/17 06:59 06:59 06:59 06:59 Weight 154 lb 5.177 oz Physical Exam: CONSTITUTIONAL/GENERAL: This is an adequately nourished patient, intubated, sedated, in no apparent distress. TUBES/LINES/DRAINS: Right IJ Vas-Cath, right subclavian central line, right radial arterial line, ETT, Smith, rectal tube. SKIN: No jaundice, rashes, or lesions. No wounds seen anteriorly. Skin temperature appropriate. Not diaphoretic. HEAD: Atraumatic. Normocephalic. EYES: Pupils equal and round and sluggishly reactive. No scleral icterus. No injection or drainage. Fundi not examined. ENT: Nose without bleeding or purulent drainage. Orally intubated. NECK: Trachea midline. Supple, nontender. No palpable thyroid enlargement or nodularity. Severe JVD. CARDIOVASCULAR: S1, S2, S3. Regular rate and rhythm without gallops, or rubs. Soft 1/6 systolic ejection murmur. No JVD. Peripheral pulses symmetric. RESPIRATORY/CHEST: Symmetric, unlabored respirations. Clear, diminished to auscultation. Breath sounds equal bilaterally. No wheezes, rales, or rhonchi. GASTROINTESTINAL: Abdomen soft, nondistended. No hepato-splenomegaly, or palpable masses. Bowel sounds hypoactive. GENITOURINARY: Without palpable bladder distension. Smith catheter in place. MUSCULOSKELETAL: Extremities without clubbing or cyanosis, 2-3+ edema. No joint tenderness or effusion noted. No mottling or clubbing. LYMPHATICS: No palpable cervical or supraclavicular adenopathy. NEUROLOGICAL: Sedated. PSYCHIATRIC: Sedated. . Diagnostic Tests Laboratory: Laboratory Results - last 72 hr 11/19/17 11/19/17 11/19/17 03:45 04:15 04:15 WBC 3.8 L RBC 5.74 Hgb 16.7 Hct 53.1 H MCV 92.5 MCH 29.0 MCHC 31.3 L RDW 18.5 H Plt Count 92 L D MPV 10.5 Prelim Diff (Auto) Slide review pending Neut % (Auto) 76.3 H Lymph % (Auto) 16.0 [place] % (Auto) 6.0 Eos % (Auto) 0.8 Baso % (Auto) 0.9 Neut # (Auto) 2.9 Lymph # (Auto) 0.6 L [place] # (Auto) 0.2 Eos # (Auto) 0.0 Baso # (Auto) 0.0 WBC Differential . Differential Comment . Platelet Estimate Low L Platelet Morphology Enlarged H PT 16.4 H INR 1.6 APTT 28.7 Puncture Site Patient Temperature O2 Saturation ABG pH ABG pCO2 ABG pO2 ABG HCO3 ABG O2 Content ABG Base Excess ABG Methemoglobin Hemoglobin Carboxyhemoglobin O2 Delivery Device Liter Flow Vent Setting Inspired O2 Critical Value Sodium Potassium Chloride Carbon Dioxide Anion Gap BUN Creatinine Estimated GFR POC Glucose 93 Random Glucose Lactic Acid Calcium Magnesium Total Bilirubin AST ALT Alkaline Phosphatase Total Creatine Kinase CK-MB (CK-2) CK-MB (CK-2) % Troponin I B-Natriuretic Peptide Total Protein Albumin Lipase Cortisol Urine Color Urine Clarity Urine pH Ur Specific [place] Urine Protein Urine Glucose (UA) Urine Ketones Urine Occult Blood Urine Nitrate Urine Bilirubin Urine Urobilinogen Ur Leukocyte Esterase Urine RBC Urine WBC Ur Squamous Epith Cells Amorphous Sediment Urine Bacteria Hyaline Casts Urine Mucus Micro UA Comment Urine Culture Comments Nasal Screen MRSA (PCR) Urine Opiates Screen Ur Barbiturates Screen Ur Amphetamines Screen U Benzodiazepines Scrn Urine Cocaine Screen U Cannabinoids Screen Serum Alcohol 11/19/17 11/19/17 11/19/17 04:15 04:15 06:35 WBC RBC Hgb Hct MCV MCH MCHC RDW Plt Count MPV Prelim Diff (Auto) Neut % (Auto) Lymph % (Auto) [place] % (Auto) Eos % (Auto) Baso % (Auto) Neut # (Auto) Lymph # (Auto) [place] # (Auto) Eos # (Auto) Baso # (Auto) WBC Differential Differential Comment Platelet Estimate Platelet Morphology PT INR APTT Puncture Site Patient Temperature O2 Saturation ABG pH ABG pCO2 ABG pO2 ABG HCO3 ABG O2 Content ABG Base Excess ABG Methemoglobin Hemoglobin Carboxyhemoglobin O2 Delivery Device Liter Flow Vent Setting Inspired O2 Critical Value Sodium 140 Potassium 7.0 H* Chloride 113 H Carbon Dioxide 14.2 L Anion Gap 13 BUN 47 H Creatinine 2.41 H Estimated GFR 34 L POC Glucose Random Glucose 76 Lactic Acid Calcium 8.2 L Magnesium 2.6 H Total Bilirubin 2.1 H AST 200 H ALT 72 Alkaline Phosphatase 71 Total Creatine Kinase 1302 H CK-MB (CK-2) 25.4 H CK-MB (CK-2) % 2.0 Troponin I 0.20 H B-Natriuretic Peptide 4307 H Total Protein 8.0 Albumin 2.4 L Lipase 184 Cortisol Urine Color Urine Clarity Urine pH Ur Specific [place] Urine Protein Urine Glucose (UA) Urine Ketones Urine Occult Blood Urine Nitrate Urine Bilirubin Urine Urobilinogen Ur Leukocyte Esterase Urine RBC Urine WBC Ur Squamous Epith Cells Amorphous Sediment Urine Bacteria Hyaline Casts Urine Mucus Micro UA Comment Urine Culture Comments Nasal Screen MRSA (PCR) Urine Opiates Screen Neg Ur Barbiturates Screen Neg Ur Amphetamines Screen Neg U Benzodiazepines Scrn Neg Urine Cocaine Screen Pos H U Cannabinoids Screen Neg Serum Alcohol Less than 3 11/19/17 11/19/17 11/19/17 06:35 06:35 06:35 WBC RBC Hgb Hct MCV MCH MCHC RDW Plt Count MPV Prelim Diff (Auto) Neut % (Auto) Lymph % (Auto) [place] % (Auto) Eos % (Auto) Baso % (Auto) Neut # (Auto) Lymph # (Auto) [place] # (Auto) Eos # (Auto) Baso # (Auto) WBC Differential Differential Comment Platelet Estimate Platelet Morphology PT INR APTT Puncture Site Patient Temperature O2 Saturation ABG pH ABG pCO2 ABG pO2 ABG HCO3 ABG O2 Content ABG Base Excess ABG Methemoglobin Hemoglobin Carboxyhemoglobin O2 Delivery Device Liter Flow Vent Setting Inspired O2 Critical Value Sodium Potassium 6.9 H* Chloride Carbon Dioxide Anion Gap BUN Creatinine Estimated GFR POC Glucose Random Glucose Lactic Acid Calcium Magnesium Total Bilirubin AST ALT Alkaline Phosphatase Total Creatine Kinase CK-MB (CK-2) CK-MB (CK-2) % Troponin I B-Natriuretic Peptide Total Protein Albumin Lipase Cortisol 59.8 Urine Color [place] Urine Clarity Cloudy H Urine pH 5.0 Ur Specific [place] 1.019 Urine Protein 500 or greater Urine Glucose (UA) Negative Urine Ketones Negative Urine Occult Blood Large H Urine Nitrate Negative Urine Bilirubin Negative Urine Urobilinogen 4 or greater Ur Leukocyte Esterase Negative Urine RBC 38 H Urine WBC 18 H Ur Squamous Epith Cells <1 Amorphous Sediment Few H Urine Bacteria Few H Hyaline Casts 6 Urine Mucus Few H Micro UA Comment Cath-culture ind Urine Culture Comments Cath-cult indicated Nasal Screen MRSA (PCR) Urine Opiates Screen Ur Barbiturates Screen Ur Amphetamines Screen U Benzodiazepines Scrn Urine Cocaine Screen U Cannabinoids Screen Serum Alcohol 11/19/17 11/19/17 11/19/17 08:03 09:15 09:15 WBC RBC Hgb Hct MCV MCH MCHC RDW Plt Count MPV Prelim Diff (Auto) Neut % (Auto) Lymph % (Auto) [place] % (Auto) Eos % (Auto) Baso % (Auto) Neut # (Auto) Lymph # (Auto) [place] # (Auto) Eos # (Auto) Baso # (Auto) WBC Differential Differential Comment Platelet Estimate Platelet Morphology PT INR APTT Puncture Site Left femoral Art line Patient Temperature 98.6 98.6 O2 Saturation 96 97 ABG pH 7.26 L* 7.49 H ABG pCO2 40 29 L ABG pO2 129 H 293 H ABG HCO3 17 L 22 ABG O2 Content 21.6 H 20.8 H ABG Base Excess -8.4 L -1.4 ABG Methemoglobin 1.3 1.2 Hemoglobin 15.9 14.7 Carboxyhemoglobin 0.8 1.3 O2 Delivery Device Nasal cannula Ventilator Liter Flow 6.00 Vent Setting Prvc/ac Inspired O2 21 60 Critical Value Yes No Sodium Potassium Chloride Carbon Dioxide Anion Gap BUN Creatinine Estimated GFR POC Glucose Random Glucose Lactic Acid Calcium Magnesium Total Bilirubin AST ALT Alkaline Phosphatase Total Creatine Kinase CK-MB (CK-2) CK-MB (CK-2) % Troponin I B-Natriuretic Peptide Total Protein Albumin Lipase Cortisol Urine Color Urine Clarity Urine pH Ur Specific [place] Urine Protein Urine Glucose (UA) Urine Ketones Urine Occult Blood Urine Nitrate Urine Bilirubin Urine Urobilinogen Ur Leukocyte Esterase Urine RBC Urine WBC Ur Squamous Epith Cells Amorphous Sediment Urine Bacteria Hyaline Casts Urine Mucus Micro UA Comment Urine Culture Comments Nasal Screen MRSA (PCR) Not detected Urine Opiates Screen Ur Barbiturates Screen Ur Amphetamines Screen U Benzodiazepines Scrn Urine Cocaine Screen U Cannabinoids Screen Serum Alcohol 11/19/17 11/19/17 11/19/17 09:32 09:32 11:06 WBC RBC Hgb Hct MCV MCH MCHC RDW Plt Count MPV Prelim Diff (Auto) Neut % (Auto) Lymph % (Auto) [place] % (Auto) Eos % (Auto) Baso % (Auto) Neut # (Auto) Lymph # (Auto) [place] # (Auto) Eos # (Auto) Baso # (Auto) WBC Differential Differential Comment Platelet Estimate Platelet Morphology PT INR APTT Puncture Site Patient Temperature O2 Saturation ABG pH ABG pCO2 ABG pO2 ABG HCO3 ABG O2 Content ABG Base Excess ABG Methemoglobin Hemoglobin Carboxyhemoglobin O2 Delivery Device Liter Flow Vent Setting Inspired O2 Critical Value Sodium Potassium 5.6 H D Chloride Carbon Dioxide Anion Gap BUN Creatinine Estimated GFR POC Glucose 39 L* Random Glucose Lactic Acid 4.2 H* Calcium Magnesium Total Bilirubin AST ALT Alkaline Phosphatase Total Creatine Kinase CK-MB (CK-2) CK-MB (CK-2) % Troponin I 0.25 H B-Natriuretic Peptide Total Protein Albumin Lipase Cortisol Urine Color Urine Clarity Urine pH Ur Specific [place] Urine Protein Urine Glucose (UA) Urine Ketones Urine Occult Blood Urine Nitrate Urine Bilirubin Urine Urobilinogen Ur Leukocyte Esterase Urine RBC Urine WBC Ur Squamous Epith Cells Amorphous Sediment Urine Bacteria Hyaline Casts Urine Mucus Micro UA Comment Urine Culture Comments Nasal Screen MRSA (PCR) Urine Opiates Screen Ur Barbiturates Screen Ur Amphetamines Screen U Benzodiazepines Scrn Urine Cocaine Screen U Cannabinoids Screen Serum Alcohol 11/19/17 11:18 WBC RBC Hgb Hct MCV MCH MCHC RDW Plt Count MPV Prelim Diff (Auto) Neut % (Auto) Lymph % (Auto) [place] % (Auto) Eos % (Auto) Baso % (Auto) Neut # (Auto) Lymph # (Auto) [place] # (Auto) Eos # (Auto) Baso # (Auto) WBC Differential Differential Comment Platelet Estimate Platelet Morphology PT INR APTT Puncture Site Patient Temperature O2 Saturation ABG pH ABG pCO2 ABG pO2 ABG HCO3 ABG O2 Content ABG Base Excess ABG Methemoglobin Hemoglobin Carboxyhemoglobin O2 Delivery Device Liter Flow Vent Setting Inspired O2 Critical Value Sodium Potassium Chloride Carbon Dioxide Anion Gap BUN Creatinine Estimated GFR POC Glucose 168 H Random Glucose Lactic Acid Calcium Magnesium Total Bilirubin AST ALT Alkaline Phosphatase Total Creatine Kinase CK-MB (CK-2) CK-MB (CK-2) % Troponin I B-Natriuretic Peptide Total Protein Albumin Lipase Cortisol Urine Color Urine Clarity Urine pH Ur Specific [place] Urine Protein Urine Glucose (UA) Urine Ketones Urine Occult Blood Urine Nitrate Urine Bilirubin Urine Urobilinogen Ur Leukocyte Esterase Urine RBC Urine WBC Ur Squamous Epith Cells Amorphous Sediment Urine Bacteria Hyaline Casts Urine Mucus Micro UA Comment Urine Culture Comments Nasal Screen MRSA (PCR) Urine Opiates Screen Ur Barbiturates Screen Ur Amphetamines Screen U Benzodiazepines Scrn Urine Cocaine Screen U Cannabinoids Screen Serum Alcohol Result Diagrams: 11/19/17 04:15 11/19/17 09:32 Imaging: Abdomen/Pelvis CT 11/19/17 03:55 CONCLUSION: 1. Limited, suboptimal examination performed without intravenous or oral contrast. The study is degraded by motion artifact as well. 2. Abnormal bowel gas pattern with multiple small air-fluid levels. The bowel is suboptimally visualized and evaluated secondary to the lack of the intravenous and oral contrast as well as diffuse ascites. This may represent a gastroenteritis and/or ileus. Obstruction is less likely. 3. Diffuse ascites throughout the abdomen and pelvis. 4. Moderate size right effusion which is increased from the prior study. There is a new small left effusion. 5. Moderate cardiomegaly. 6. No definite gallstones identified. Chest X-Ray 11/19/17 03:55 CONCLUSION: 1. Mild hazy opacity is now noted in the right perihilar region concerning for mild pulmonary edema. 2. The heart size remains mildly enlarged and appearance. Head CT 11/19/17 03:55 CONCLUSION: 1. No acute hemorrhage or mass effect. 2. Mild motion and streak artifact. . Chest X-Ray 11/19/17 08:50 CONCLUSION: 1. ETT in good position. NGT beyond the GE junction. Central lines in good position. 2. Persistent atypical pulmonary edema pattern. Procedures: 11/19/2017: Right radial arterial line placement 11/19/2017: Endotracheal intubation 11/19/2017: Right subclavian triple-lumen catheter placement 11/19/2017 right IJ dialysis catheter placement . Patient/Family Conference Present at Family Conference: Spoke with patient's sister, Bryan Sharp, who provides much prior history. She states that her mother has dementia and is unable to participate in decision -making. She is cared for by her oldest daughter, Kaylie Gama, in [place]. In addition there are 3 other siblings, Kamille Verdugo, Segundo Verdugo and Carter Chavez. Bryan is the only sibling who lives locally and would like to contact her brothers and sisters to arrange a meeting with palliative care tomorrow to further discuss goals of care, CODE STATUS and treatment options. I reviewed palliative care purpose and focus as well as the below listed items and provided a clinical update of patient's current status to include heart failure, intubation, dialysis, hyperkalemia, renal failure and the poor prognosis associated with this. They are aware that overnight until further decisions are made that he will remain a FULL CODE. Palliative care contact information was provided for any further questions or concerns. . Family Conference Location: Consult Room Issues Discussed: * Palliative care role, purpose, approach * Additional medical, psychosocial, and spiritual history * Patients general health, functional status, and cognitive changes in the months leading up to the current hospitalization * Patient/family understanding of the current medical problems * Patient/family understanding of prognosis * Patients goals of care as best understood from advance directives and/or conversations and/or values * Current medical treatment options and benefits/burdens of those options * Likely scenarios comparing ongoing aggressive care with a transition to comfort measures only * Questions answered to the best of my ability * Palliative care contact information provided Assessment and Plan Pertinent Non-Medical Issues: Psychosocial: He was born in [facility] and 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 He was never and has no children. He was previously in the [employer]. Spiritual: Organizational Effectiveness Director available. Legal: No living will or healthcare surrogate completed. Ethical issues impacting care: None noted. . Important Contacts: Sister: Bryan Sharp Sister: Kamille Verdugo Brother: Segundo Lucina Brother: Carter Chavez Sister: Kaylie Gama Mother: Angelina Medina (has dementia, lives with her daughter Kaylie) . Prognosis: His prognosis is poor. 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 He has suffered a decline in heart function since June 2017 when echocardiogram showed a 50-55% ejection fraction at the time of mitral valve repair. Patient continued to abuse cocaine and possibly other substances and when seen in [place] September 2017 for chest pain was found to have non-ischemic cardiomyopathy with a normal coronary artery circulation and ejection fraction of 20-25%. Echocardiogram at this admission shows cardiogenic shock with an EF less than 10%. He is now requiring inotropic support with milrinone and now has acute kidney injury requiring dialysis for both hyperkalemia and fluid overload. At this time he remains on life support, intubated, but is at elevated risk for continued complications and decline. He would be hospice appropriate if goals were consistent. . Code Status: Full Code Plan: PLAN: Legal decision maker: At this time the patient is not capacitated for decision making and it is not certain that he will ever regain capacity. He was never and has no children. His mother has dementia and is unable to participate. He has 5 brothers and sisters who would be the next tier of the [place] statutes for decision-makers. Family meeting scheduled for 11/20 to determine which of the siblings, if any, would be willing to participate in the decision-making process. Goals: To be determined CODE STATUS: FULL CODE by default SYMPTOMS: * Altered mental status: Presented with altered mental status, positive for cocaine, hypoglycemic, hyperkalemic, in fulminant heart failure, minimally able to make his needs known. Shortly thereafter he required intubation and sedation. It is unknown at this time what his baseline mental status is. * Edema: He has gross anasarca, ascites, dependent edema and is now undergoing dialysis for fluid removal as well as hyperkalemia due to acute kidney injury, likely secondary to acute heart failure and cardiogenic shock. He received a total of 240 mg of Lasix this morning in an attempt to treat the hyperkalemia and fluid overload. He is now on hemodialysis. 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 At his prior admission one month ago his ejection fraction was 20-25%. He was positive for cocaine on this admission. In addition to cardiogenic shock and end-stage heart disease, he has now developed renal compromise likely secondary to poor cardiac output lending to concern for possible cardiorenal syndrome. He is at increased risk for continued complications and decline. He would be hospice appropriate if goals are consistent. Palliative care will continue to follow the patient during hospital course as condition evolves, to assist patient/decision-maker with understanding of their medical conditions, weighing benefits/burdens of treatment options, for clarification of goals of treatment. Additionally will assist with any symptoms of palliative concern. . Appreciation Thank you for the opportunity to participate in the care of [facility]. Attestation Attestation: To help prompt me to consider important information that might be impacting today's encounter and assessment, information from prior notes written by myself or my colleagues may have been "brought forward" into today's note. My signature on this note, however, is an attestation that I personally performed the exam, history, and/or decision-making noted today, and, unless otherwise indicated, the interactions with patient, family, and staff as well as the review of records all occurred today. I also attest that the listed assessment and stated plan reflect my best clinical judgment today based on the combination of historical information, prior notes, and today's exam/ interactions. When time spent is documented, it refers only to time spent today by the signer, or if indicated, combined time spent today by collaborating physician/nurse practitioner. .
[2017-11-19 14:08] LABS: Hepatitis A IgM Antibody Nonreactive (Nonreactive); Hepatitits B Surface Antigen Nonreactive (Nonreactive)
--- NOTE | 2017-11-19 14:12 | P.CONNP ---
<KarolinaKarine - Last Filed: 11/19/17 13:47> History of Present Illness Service: Nephrology Consult date: 11/19/17 Requesting Physician: John Gold Reason for Consult: Acute kidney injury with hyperkalemia Primary Care Provider: UNKNOWN History of Present Illness: Patient is a a 57 year old male with history of cardiomyopathy and an EF 20%, hx of recent mitral valve repair, hypertension, CAD, and cocaine use. Patient is intubated so HPI obtained from chart. Presented via [facility] to the [facility] emergency department with altered mental status noted by a friend. He is a active illicit drug user reported per record using cocaine and something else. Patient progressed into respiratory failure and is now intubated. Nephrology is consulted for acute renal failure with a creatinine of 2.41 and potassium level of 7.0. With treatment repeat potassium level at 6.8. HCO3 at 14.2 and BNP 4307. Baseline creatinine on 07/[address] of abdomen with kidneys normal in size and shape. No evidence of mass or hydronephrosis. Review of Systems unobtainable due to endotracheal tube PMFSH - History History Provided By: Medical Record - Medical / Surgical Hx Neg / Unobtainable Medical Problems Denied: Unable to Obtain - Medical History Medical History: Medical History (Last Updated 11/19/17 @ 04:22 by Elin Chavez MD) Diabetes Gout CHF (congestive heart failure) Cocaine use Hypertension - Surgical History Surgical History: Surgical History (Last Updated 11/03/17 @ 21:02 by Fritz Worthy RN) Hx of heart artery stent - Family History Family History: Family History (Last Updated 11/19/17 @ 13:41 by ANDREW Arguello) Mother Breast cancer Father Cancer - Tobacco History Tobacco Use In Past 30 Days: Yes Smoking Status: Current every day smoker Tobacco Type: Cigarettes - Alcohol History How Often Do You Have a Drink Containing Alcohol: 4 or more times a week - Substance Use History Substance History: Active Abuse - Substance Use Type Crack/Cocaine Status: Active Route Used: Inhalation - Travel History Recent Travel in the [place] Within the Last 8 Weeks: No Recent Travel Out of the Country Within the Last 8 Weeks: No - Immunization History Tetanus Immunization: Unsure Hx Influenza Vaccine This Season: No Medications and Allergies Allergies Allergy/AdvReac Type Severity Reaction Status Date / Time No Known Allergies Allergy Unverified 11/19/17 04:45 Home Medications Medication Instructions Recorded Confirmed Type albuterol sulfate 2 puff INHALATION Q4-6H PRN 11/03/17 11/19/17 History amlodipine [Norvasc] 5 mg PO DAILY 11/03/17 11/19/17 History carvedilol 12.5 mg PO BID 11/03/17 11/19/17 History furosemide 20 mg PO DAILY 11/03/17 11/19/17 History lisinopril PO DAILY 11/03/17 History warfarin 5 mg PO Q OTHER DAY 11/03/17 11/19/17 History Active Medications: Active Medications Acetaminophen (Tylenol) 650 mg PO Q6H PRN PRN Reason: PAIN 1-10 AND/OR FEVER >101F Acetaminophen (Tylenol) 650 mg PO UNSCH PRN PRN Reason: SEE LABEL COMMENTS Al Hydroxide/Mg Hydroxide (Milk Of Colton Herrera) 30 ml PO Q12H PRN PRN Reason: Mild Constipation Albuterol (Albuterol Neb (Prn)) 2.5 mg NEB Q2HR NEB PRN PRN Reason: SHORTNESS OF BREATH/WHEEZING Bisacodyl (Dulcolax Supp) 10 mg RECTAL DAILY PRN PRN Reason: SEVERE CONSITIPATION Chlorhexidine Gluconate (Chlorhexidine 2% Cloth) 3 pack TOPICAL DAILY@0400 RUDDY Stop: 11/25/17 03:59 Chlorhexidine Gluconate (Chlorhexidine 2% Cloth) 3 pack TOPICAL DAILY@0400 PRN PRN Reason: Extra cloth needed Stop: 11/25/17 03:59 Famotidine (Pepcid Pf Inj) 10 mg IV.PUSH Q12HR [facility] Last Admin: 11/19/17 09:20 Dose: 10 mg Famotidine (Pepcid Pf Inj) 20 mg IV.PUSH DAILY [facility] Gelatin (Gelfoam 12 Mm/7 Mm Topical) 1 foam TOPICAL PRN PRN PRN Reason: help stop bleeding from site Gentamicin Sulfate (Gentamicin Inj) 20 mg OTHER WITH DIALYSIS PRN PRN Reason: Dwell Gentamycin Lock Heparin Sodium (Porcine) (Heparin Inj) 8,000 units OTHER WITH DIALYSIS PRN PRN Reason: for machine prime Heparin Sodium (Porcine) (Heparin Inj) 1,000 units OTHER WITH DIALYSIS PRN PRN Reason: Dwell Heparin to Fill Catheter Heparin Sodium (Porcine) (Heparin Inj) 5,000 units SQ Q8HR [facility] Epinephrine HCl 4 mg/ Dextrose 250 mls @ 37.5 mls/hr IV.CONT TITRATE PRN; Protocol PRN Reason: See protocol Last Titration: 11/19/17 09:35 Dose: 3 mcg/min, 11.25 mls/hr Norepinephrine Bitartrate 8 mg (/ Dextrose) 250 mls @ 3.75 mls/hr IV.CONT TITRATE PRN; Protocol PRN Reason: See Protocol Midazolam HCl (Versed Inj) 50 mg in 50 mls @ 2 mls/hr IV.CONT TITRATE PRN; Protocol PRN Reason: Per Protocol Sodium Chloride (Ns Inj) 1,000 mls @ 0 mls/hr OTHER .Q0M PRN PRN Reason: for prime and rinse back Sodium Chloride (Ns Inj) 1,000 mls @ 200 mls/hr OTHER .Q5H PRN PRN Reason: for dialyzer flush PRN Sodium Chloride (Ns Inj) 1,000 mls @ 0 mls/hr IV.CONT .Q0M PRN PRN Reason: hypotension / volume replace Albumin Human (Flexbumin 25% Inj) 100 mls @ 60 mls/hr IV.SIG WITH DIALYSIS PRN PRN Reason: hypotension / volume replace Milrinone Lactate 20 mg/ (Sodium Chloride) 100 mls @ 10.5 mls/hr IV.CONT .Q9H32M [facility]; Protocol Last Admin: 11/19/17 12:14 Dose: 0.5 mcg/kg/min, 10.5 mls/hr Nicardipine HCl 25 mg/ Sodium (Chloride) 250 mls @ 50 mls/hr IV.CONT TITRATE PRN; Protocol PRN Reason: Per Protocol Last Admin: 11/19/17 12:14 Dose: 5 mg/hr, 50 mls/hr Lactulose (Lactulose Liq) 30 ml PO DAILY PRN PRN Reason: SEVERE CONSITIPATION Mannitol (Mannitol Inj) 12.5 gm IV.PUSH UNSCH PRN PRN Reason: hypotension / volume replace Nitroglycerin (Nitrostat Sl) 0.4 mg SL Q5M PRN PRN Reason: CHEST PAIN Ondansetron HCl (Zofran Odt) 4 mg PO UNSCH PRN PRN Reason: NAUSEA OR VOMITING Senna/Docusate Sodium (Irma-Colace) 1 tab PO BID [facility] Last Admin: 11/19/17 09:30 Dose: Not Given Sennosides (Senokot) 17.2 mg PO Q12H PRN PRN Reason: Moderate Constipation Sodium Chloride (Ns Flush) 2 ml IV.FLUSH BID [facility] Last Admin: 11/19/17 09:30 Dose: 2 ml Sodium Chloride (Ns Flush) 2 ml IV.FLUSH PRN PRN PRN Reason: FLUSH AFTER USING IV ACCESS Sodium Chloride (Ns Flush) 5 ml IV.FLUSH PRN PRN PRN Reason: flush each lumen during HD Terbutaline Sulfate (Brethine Inj) 1 mg SQ UNSCH PRN PRN Reason: For Extravasation Exam Vital signs: Vital Signs 11/19/17 04:41 11/19/17 05:35 11/19/17 05:37 Temperature 98.2 F Pulse Rate 83 85 85 Respiratory Rate 28 H 20 20 Blood Pressure 130/80 135/86 Pulse Oximetry 95 100 11/19/17 05:55 11/19/17 07:35 11/19/17 08:00 Temperature Pulse Rate 78 79 Respiratory Rate 24 11 L 22 Blood Pressure 132/97 H 145/104 H Pulse Oximetry 100 11/19/17 08:15 11/19/17 09:00 11/19/17 10:00 Temperature Pulse Rate 78 79 Respiratory Rate 24 24 22 Blood Pressure 127/97 H 141/104 H Pulse Oximetry 100 100 100 11/19/17 10:49 11/19/17 11:25 11/19/17 11:30 Temperature 91.6 F L Pulse Rate 79 Respiratory Rate 22 22 Blood Pressure 141/104 H Pulse Oximetry 100 98 Intake & Output 11/18/17 11/19/17 11/19/17 18:59 06:59 18:59 Weight 70 kg Other: Date of Last Bowel Movement 11/19/17 - Constitutional Comments: intubated on ventilator - Routine HEENT Exam Head: Present: normocephalic - Routine Neck Exam Present: JVD - Routine Respiratory Exam Present: patient mechanically ventilated, decreased breath sounds - Routine Cardiovascular Exam Present: RRR, murmur - Routine Abdominal Exam Present: normoactive bowel sounds, distended - Routine Extremities Exam Present: edema, vascular access - Routine Skin Exam Present: dry, warm Results - Lab Results 11/19/17 04:15 11/19/17 09:32 Most recent lab results ABG pH 7.49 (7.380-7.420) H 11/19/17 09:15 ABG pCO2 29 mmHg (38-42) L 11/19/17 09:15 ABG pO2 293 mmHG (61-120) H 11/19/17 09:15 ABG HCO3 22 mmol/L (22-26) 11/19/17 09:15 Calcium 8.2 mg/dL (8.5-10.1) L 11/19/17 04:15 Magnesium 2.6 mg/dL (1.5-2.5) H 11/19/17 04:15 - Image Kidney/bladder ultrasound: other (CT of abdomen) Assessment and Plan - Plan Acute kidney injury Creatinine of 2.41 and potassium level of 7.0. With treatment repeat potassium level at 6.8. Acidotic with HCO3 at 14.2 Baseline creatinine on 07/[address] of abdomen with kidneys normal in size and shape. No evidence of mass or hydronephrosis. CHRISTINA most likely from cardiogenic shock, patient also noted to have increased protein in urine Maintain goins catheter and strict I+O Serology and urine for creatinine, sodium and osmolarity ordered Avoid nephrotoxins Will initiate hemodialysis for fluid removal and also hyperkalemia, orders placed Will repeat dialysis tomorrow at bedside Monitor urinary output and BMP Acute respiratory failure and cardiogenic shock Per CC on ventilator and pressor support <Sumanth Cha - Last Filed: 11/19/17 18:10> History of Present Illness Primary Care Provider: UNKNOWN [facility] - Medical History Medical History: Medical History (Last Updated 11/19/17 @ 04:22 by Elin Chavez MD) Diabetes Gout CHF (congestive heart failure) Cocaine use Hypertension - Surgical History Surgical History: Surgical History (Last Updated 11/03/17 @ 21:02 by Fritz Worthy RN) Hx of heart artery stent - Family History Family History: Family History (Last Updated 11/19/17 @ 13:41 by ANDREW Arguello) Mother Breast cancer Father Cancer Medications and Allergies Active Medications: Active Medications Acetaminophen (Tylenol) 650 mg PO Q6H PRN PRN Reason: PAIN 1-10 AND/OR FEVER >101F Acetaminophen (Tylenol) 650 mg PO UNSCH PRN PRN Reason: SEE LABEL COMMENTS Al Hydroxide/Mg Hydroxide (Milk Of Colton Herrera) 30 ml PO Q12H PRN PRN Reason: Mild Constipation Albuterol (Albuterol Neb (Prn)) 2.5 mg NEB Q2HR NEB PRN PRN Reason: SHORTNESS OF BREATH/WHEEZING Bisacodyl (Dulcolax Supp) 10 mg RECTAL DAILY PRN PRN Reason: SEVERE CONSITIPATION Chlorhexidine Gluconate (Chlorhexidine 2% Cloth) 3 pack TOPICAL DAILY@0400 RUDDY Stop: 11/25/17 03:59 Chlorhexidine Gluconate (Chlorhexidine 2% Cloth) 3 pack TOPICAL DAILY@0400 PRN PRN Reason: Extra cloth needed Stop: 11/25/17 03:59 Famotidine (Pepcid Pf Inj) 10 mg IV.PUSH Q12HR [facility] Last Admin: 11/19/17 09:20 Dose: 10 mg Famotidine (Pepcid Pf Inj) 20 mg IV.PUSH DAILY [facility] Gelatin (Gelfoam 12 Mm/7 Mm Topical) 1 foam TOPICAL PRN PRN PRN Reason: help stop bleeding from site Gentamicin Sulfate (Gentamicin Inj) 20 mg OTHER WITH DIALYSIS PRN PRN Reason: Dwell Gentamycin Lock Heparin Sodium (Porcine) (Heparin Inj) 8,000 units OTHER WITH DIALYSIS PRN PRN Reason: for machine prime Heparin Sodium (Porcine) (Heparin Inj) 1,000 units OTHER WITH DIALYSIS PRN PRN Reason: Dwell Heparin to Fill Catheter Heparin Sodium (Porcine) (Heparin Inj) 5,000 units SQ Q8HR [facility] Last Admin: 11/19/17 14:39 Dose: 5,000 units Epinephrine HCl 4 mg/ Dextrose 250 mls @ 37.5 mls/hr IV.CONT TITRATE PRN; Protocol PRN Reason: See protocol Last Titration: 11/19/17 11:15 Dose: 0 mcg/min, 0 mls/hr Norepinephrine Bitartrate 8 mg (/ Dextrose) 250 mls @ 3.75 mls/hr IV.CONT TITRATE PRN; Protocol PRN Reason: See Protocol Last Titration: 11/19/17 17:04 Dose: 7 mcg/min, 13.12 mls/hr Midazolam HCl (Versed Inj) 50 mg in 50 mls @ 2 mls/hr IV.CONT TITRATE PRN; Protocol PRN Reason: Per Protocol Last Admin: 11/19/17 17:01 Dose: 8 mg/hr, 8 mls/hr Sodium Chloride (Ns Inj) 1,000 mls @ 0 mls/hr OTHER .Q0M PRN PRN Reason: for prime and rinse back Sodium Chloride (Ns Inj) 1,000 mls @ 200 mls/hr OTHER .Q5H PRN PRN Reason: for dialyzer flush PRN Sodium Chloride (Ns Inj) 1,000 mls @ 0 mls/hr IV.CONT .Q0M PRN PRN Reason: hypotension / volume replace Albumin Human (Flexbumin 25% Inj) 100 mls @ 60 mls/hr IV.SIG WITH DIALYSIS PRN PRN Reason: hypotension / volume replace Milrinone Lactate 20 mg/ (Sodium Chloride) 100 mls @ 10.5 mls/hr IV.CONT .Q9H32M [facility]; Protocol Last Admin: 11/19/17 12:14 Dose: 0.5 mcg/kg/min, 10.5 mls/hr Nicardipine HCl 25 mg/ Sodium (Chloride) 250 mls @ 50 mls/hr IV.CONT TITRATE PRN; Protocol PRN Reason: Per Protocol Last Titration: 11/19/17 13:15 Dose: 0 mg/hr, 0 mls/hr Lactulose (Lactulose Liq) 30 ml PO DAILY PRN PRN Reason: SEVERE CONSITIPATION Mannitol (Mannitol Inj) 12.5 gm IV.PUSH UNSCH PRN PRN Reason: hypotension / volume replace Nitroglycerin (Nitrostat Sl) 0.4 mg SL Q5M PRN PRN Reason: CHEST PAIN Ondansetron HCl (Zofran Odt) 4 mg PO UNSCH PRN PRN Reason: NAUSEA OR VOMITING Senna/Docusate Sodium (Irma-Colace) 1 tab PO BID [facility] Last Admin: 11/19/17 09:30 Dose: Not Given Sennosides (Senokot) 17.2 mg PO Q12H PRN PRN Reason: Moderate Constipation Sodium Chloride (Ns Flush) 2 ml IV.FLUSH BID [facility] Last Admin: 11/19/17 09:30 Dose: 2 ml Sodium Chloride (Ns Flush) 2 ml IV.FLUSH PRN PRN PRN Reason: FLUSH AFTER USING IV ACCESS Sodium Chloride (Ns Flush) 5 ml IV.FLUSH PRN PRN PRN Reason: flush each lumen during HD Terbutaline Sulfate (Brethine Inj) 1 mg SQ UNSCH PRN PRN Reason: For Extravasation Exam Vital signs: Vital Signs 11/19/17 04:41 11/19/17 05:35 11/19/17 05:37 Temperature 98.2 F Pulse Rate 83 85 85 Respiratory Rate 28 H 20 20 Blood Pressure 130/80 135/86 Pulse Oximetry 95 100 11/19/17 05:55 11/19/17 07:35 11/19/17 08:00 Temperature Pulse Rate 78 79 Respiratory Rate 24 11 L 22 Blood Pressure 132/97 H 145/104 H Pulse Oximetry 100 11/19/17 08:15 11/19/17 09:00 11/19/17 10:00 Temperature Pulse Rate 78 79 Respiratory Rate 24 24 22 Blood Pressure 127/97 H 141/104 H Pulse Oximetry 100 100 100 11/19/17 10:49 11/19/17 11:00 11/19/17 11:25 Temperature 91.6 F L Pulse Rate 75 79 Respiratory Rate 22 22 Blood Pressure 141/104 H Pulse Oximetry 100 100 11/19/17 11:30 11/19/17 12:00 11/19/17 13:00 Temperature Pulse Rate 83 85 Respiratory Rate 22 22 0 L Blood Pressure 136/95 H Pulse Oximetry 98 100 99 11/19/17 14:00 11/19/17 15:00 11/19/17 16:00 Temperature 97.1 F L Pulse Rate 90 97 H 105 H Respiratory Rate 22 22 22 Blood Pressure 122/65 101/61 Pulse Oximetry 96 97 96 11/19/17 16:29 Temperature Pulse Rate Respiratory Rate 22 Blood Pressure Pulse Oximetry 97 Intake & Output 11/18/17 11/19/17 11/19/17 18:59 06:59 18:59 Intake Total 50 / 50 Output Total 1500 / 1500 Balance -1450 / -1450 Weight 70 kg 69 kg Intake: IV 50 / 50 Versed Inj 50 mg In 50 ml @ 2 50 / 50 MG/HR 2 mls/hr IV.CONT TITRATE PRN Rx#:[id number] Output: Stool 200 / 200 Urine Amount (Catheter) 1300 / 1300 Indwelling Urethral Catheter 1300 / 1300 Other: Date of Last Bowel Movement 11/19/17 # Bowel Movements 1 Weight On Admission 70 kg Results - Lab Results 11/19/17 04:15 11/19/17 09:32 Most recent lab results ABG pH 7.61 (7.380-7.420) H* 11/19/17 17:40 ABG pCO2 24 mmHg (38-42) L* 11/19/17 17:40 ABG pO2 104 mmHG (61-120) 11/19/17 17:40 ABG HCO3 24 mmol/L (22-26) 11/19/17 17:40 Calcium 8.2 mg/dL (8.5-10.1) L 11/19/17 04:15 Magnesium 2.6 mg/dL (1.5-2.5) H 11/19/17 04:15 Assessment and Plan - Plan Patient seen and examined, agree with above. Patient seen during HD, BP is stable. HD again in AM.
[2017-11-19] MEDS: Heparin - SQ 10,000 UNITS/ML Vial SQ SCH ×2 (14:39→21:43)
[2017-11-19 17:46] LABS: ABG Base Excess 2.5 mmol/L (-2-2); ABG PCO2 24 mmHg (38-42); ABG PO2 104 mmHG (61-120)
--- NOTE | 2017-11-19 18:45 | ECG ---
Date Performed: 11/19/2017 Time Performed: 03:39:43 PTAGE: 57 years EKG: Sinus rhythm LEFT ANTERIOR FASCICULAR BLOCK ANTEROLATERAL MYOCARDIAL INFARCTION, age indeterminate PREVIOUS TRACING :11/03/2017 @22.24 Compared to prior tracing, there is minimal anterolate ral ST elevation. Clinical correlation is recommended to exclude Myocardial Infarction DOCTOR: Darion [place] Interpretating Date/Time 11/19/2017 18:54:03
[2017-11-19 22:04] LABS: Creatinine,Urine Random 42 mg/dL (27-300)
[2017-11-20] MEDS: Chlorhexidine Gluconate 2% 1 Pack (2 Cloths) TOPICAL SCH (02:59)
[2017-11-20] MEDS: Midazolam 50 MG/50 ML Inj 50 MG/50 ML BAG IV.CONT PRN ×5 (02:59→23:49)
[2017-11-20] MEDS ORDERED: Chlorhexidine Gluconate 2% 1 Pack (2 Cloths) TOPICAL PRN (04:00)
[2017-11-20 05:07] LABS: Baso % (Auto) 0.2 % (0.0-2.0); Eos % (Auto) 0.2 % (0.0-4.0); Hematocrit 41.5 % (39.0-51.0); Hemoglobin 13.6 gm/dL (13.0-17.0); Lymph # (Auto) 0.5 th/mm3 (1.0-4.8); Lymph % (Auto) 7.9 % (9.0-44.0); Mean Corpuscular HGB Conc 32.7 % (32.0-36.0); Mean Corpuscular Volume 88.5 fL (80.0-100.0); Mean Platelet Volume 8.7 fL (7.0-11.0); Mono # (Auto) 0.5 th/mm3 (0.0-0.9); Mono % (Auto) 7.4 % (0.0-8.0); Neut # (Auto) 5.4 th/mm3 (1.8-7.7); Neut % (Auto) 84.3 % (16.0-70.0); Platelet Count 87 th/mm3 (150-450); Red Blood Count 4.69 mil/mm3 (4.50-5.90); Red Cell Distribution Width 16.2 % (11.6-17.2); White Blood Count 6.4 th/mm3 (4.0-11.0)
[2017-11-20 05:34] LABS: Alanine Aminotransferase 130 U/L (12-78); Albumin 2.5 g/dL (3.4-5.0); Anion Gap 7 meq/L (5-15); Aspartate Aminotransferase 274 U/L (15-37); Blood Urea Nitrogen 44 mg/dL (7-18); Calcium 7.8 mg/dL (8.5-10.1); Carbon Dioxide 28.4 meq/L (21.0-32.0); Chloride 109 meq/L (98-107); Glomerular Filtration Rate 40 mL/min (>89); Glucose,Random 110 mg/dL (74-106); Potassium 3.4 meq/L (3.5-5.1); Sodium 144 meq/L (136-145)
[2017-11-20 06:05] LABS: Alkaline Phosphatase 59 U/L (45-117); Complement C3 42 mg/dL (90-180); Phosphorus 2.8 mg/dL (2.5-4.9); Total Protein 6.7 g/dL (6.4-8.2)
[2017-11-20] MEDS: Heparin - SQ 10,000 UNITS/ML Vial SQ SCH ×3 (07:00→22:35)
[2017-11-20 07:01] LABS: Lymphocytes 2 % (9-44); Monocytes 3 % (0-8)
[2017-11-20 07:02] LABS: Acanthocytes Occ; Ovalocytes 1+
[2017-11-20] MEDS: Milrinone Inj 20 MG in Sodium Chlor 0.9% Inj 80 ML IV.CONT SCH ×2 (07:06→17:56)
[2017-11-20] MEDS: Famotidine PF Inj 20 MG/2 ML Vial IV.PUSH SCH ×2 (08:15→08:16)
[2017-11-20] MEDS: Senna/Docusate Sodium 8.6/50 MG Tablet PO SCH ×2 (08:16→20:18)
[2017-11-20] MEDS: Albumin Human 25% Inj 100 ML IV.SIG PRN ×2 (08:53→09:10)
--- NOTE | 2017-11-20 10:26 | P.PNNP ---
Subjective Interval history: Seen during hemodialysis. Intubated with FiO2 at 40 %. Continues on Levophed for blood pressure support. <Karine Turcios - Last Filed: 11/20/17 15:31> Physical Exam Vital signs: Vital Signs 11/19/17 10:49 11/19/17 11:00 11/19/17 11:25 Temperature 91.6 F L Pulse Rate 75 79 Respiratory Rate 22 22 Blood Pressure 141/104 H Pulse Oximetry 100 100 11/19/17 11:30 11/19/17 12:00 11/19/17 13:00 Temperature Pulse Rate 83 85 Respiratory Rate 22 22 0 L Blood Pressure 136/95 H Pulse Oximetry 98 100 99 11/19/17 14:00 11/19/17 15:00 11/19/17 16:00 Temperature 97.1 F L Pulse Rate 90 97 H 105 H Respiratory Rate 22 22 22 Blood Pressure 122/65 101/61 Pulse Oximetry 96 97 96 11/19/17 16:29 11/19/17 17:00 11/19/17 18:00 Temperature Pulse Rate 100 H 96 H Respiratory Rate 22 22 16 Blood Pressure Pulse Oximetry 97 98 97 11/19/17 18:10 11/19/17 19:00 11/19/17 20:00 Temperature 98.0 F Pulse Rate 97 H 101 H 99 H Respiratory Rate 16 18 26 H Blood Pressure 116/72 108/70 Pulse Oximetry 99 100 100 11/19/17 20:17 11/19/17 21:00 11/19/17 22:00 Temperature Pulse Rate 99 H 98 H 96 H Respiratory Rate 22 19 16 Blood Pressure 119/68 119/65 115/74 Pulse Oximetry 99 100 99 11/19/17 23:00 11/19/17 23:48 11/20/17 00:00 Temperature 97.5 F L Pulse Rate 98 H 100 H Respiratory Rate 16 17 16 Blood Pressure 129/68 104/60 Pulse Oximetry 99 100 100 11/20/17 01:00 11/20/17 02:00 11/20/17 02:01 Temperature Pulse Rate 139 H 95 H 95 H Respiratory Rate 15 16 16 Blood Pressure 140/75 112/72 Pulse Oximetry 100 99 99 11/20/17 03:00 11/20/17 03:02 11/20/17 04:00 Temperature 99.0 F Pulse Rate 95 H 95 H 96 H Respiratory Rate 16 16 16 Blood Pressure 113/74 90/54 L Pulse Oximetry 99 99 99 11/20/17 05:00 11/20/17 06:00 11/20/17 07:00 Temperature Pulse Rate 99 H 96 H 92 H Respiratory Rate 16 16 16 Blood Pressure Pulse Oximetry 99 99 99 11/20/17 07:08 11/20/17 08:00 11/20/17 09:00 Temperature Pulse Rate 92 H 90 87 Respiratory Rate 8 L 18 16 Blood Pressure 123/63 110/63 100/56 L Pulse Oximetry 99 100 100 Intake & Output 11/19/17 11/20/17 11/20/17 18:59 06:59 18:59 Intake Total 50 / 50 550 / 550 230 / 230 Output Total 1500 / 1500 700 / 700 Balance -1450 / -1450 -150 / -150 230 / 230 Weight 69 kg 67.5 kg Intake: IV 50 / 50 550 / 550 230 / 230 EPINEPHrine (1:1000) Inj 4 MG 79 / 79 In D5W Inj 246 ML @ 10 MCG/MIN 37.5 mls/hr IV.CONT TITRATE PRN Rx#:[id number] Versed Inj 50 mg In 50 ml @ 2 50 / 50 100 / 100 50 / 50 MG/HR 2 mls/hr IV.CONT TITRATE PRN Rx#:[id number] Primacor Inj 20 MG In NS Inj 80 200 / 200 ML @ 0.5 MCG/KG/MIN 10.5 mls/ hr IV.CONT .Q9H32M [facility] Rx#: [id number] Levophed Inj 8 MG In D5W Inj 250 / 250 242 ML @ 2 MCG/MIN 3.75 mls/hr IV.CONT TITRATE PRN Rx#: [id number] Cardene Inj 25 MG In NS Inj 240 51 / 51 ML @ 5 MG/HR 50 mls/hr IV.CONT TITRATE PRN Rx#:[id number] Oral 0 / 0 Tube Feeding 0 / 0 Output: Stool 200 / 200 50 / 50 Urine Amount (Catheter) 1300 / 1300 650 / 650 Indwelling Urethral Catheter 1300 / 1300 650 / 650 Other: Date of Last Bowel Movement 11/19/17 11/20/17 11/20/17 # Bowel Movements 1 Weight On Admission 70 kg - Constitutional no acute distress - Routine HEENT Exam Head: Present: normocephalic - Routine Neck Exam Present: supple. Absent: JVD - Routine Respiratory Exam Present: patient mechanically ventilated, rhonchi. Absent: rales, wheezes - Routine Cardiovascular Exam Present: RRR - Routine Abdominal Exam Present: soft, normoactive bowel sounds. Absent: tenderness - Routine Extremities Exam Present: edema, vascular access - Routine Skin Exam Present: dry, warm - Urinary Catheter Management Indwelling Urethral Catheter Cath placed during this visit: yes Reason for continuing: Hourly intake/output Insertion date: 11/19/17 Insertion time: 06:43 <Karine Turcios - Last Filed: 11/20/17 15:31> Vital signs: Vital Signs 11/19/17 18:10 11/19/17 19:00 11/19/17 20:00 Temperature 98.0 F Pulse Rate 97 H 101 H 99 H Respiratory Rate 16 18 26 H Blood Pressure 116/72 108/70 Pulse Oximetry 99 100 100 11/19/17 20:17 11/19/17 21:00 11/19/17 22:00 Temperature Pulse Rate 99 H 98 H 96 H Respiratory Rate 22 19 16 Blood Pressure 119/68 119/65 115/74 Pulse Oximetry 99 100 99 11/19/17 23:00 11/19/17 23:48 11/20/17 00:00 Temperature 97.5 F L Pulse Rate 98 H 100 H Respiratory Rate 16 17 16 Blood Pressure 129/68 104/60 Pulse Oximetry 99 100 100 11/20/17 01:00 11/20/17 02:00 11/20/17 02:01 Temperature Pulse Rate 139 H 95 H 95 H Respiratory Rate 15 16 16 Blood Pressure 140/75 112/72 Pulse Oximetry 100 99 99 11/20/17 03:00 11/20/17 03:02 11/20/17 04:00 Temperature 99.0 F Pulse Rate 95 H 95 H 96 H Respiratory Rate 16 16 16 Blood Pressure 113/74 90/54 L Pulse Oximetry 99 99 99 11/20/17 05:00 11/20/17 06:00 11/20/17 07:00 Temperature Pulse Rate 99 H 96 H 92 H Respiratory Rate 16 16 16 Blood Pressure Pulse Oximetry 99 99 99 11/20/17 07:08 11/20/17 08:00 11/20/17 08:30 Temperature 97.6 F Pulse Rate 92 H 90 Respiratory Rate 8 L 18 16 Blood Pressure 123/63 110/63 Pulse Oximetry 99 100 100 11/20/17 09:00 11/20/17 10:00 11/20/17 11:00 Temperature Pulse Rate 87 87 93 H Respiratory Rate 16 16 16 Blood Pressure 100/56 L Pulse Oximetry 100 100 100 11/20/17 11:45 11/20/17 12:00 11/20/17 13:00 Temperature 97.6 F Pulse Rate 88 82 Respiratory Rate 16 16 Blood Pressure 110/54 L Pulse Oximetry 93 L 100 11/20/17 14:00 11/20/17 15:00 11/20/17 16:00 Temperature 97.4 F L Pulse Rate 78 75 83 Respiratory Rate 16 Blood Pressure 127/75 Pulse Oximetry 100 100 96 11/20/17 16:17 Temperature Pulse Rate Respiratory Rate 16 Blood Pressure Pulse Oximetry 97 Intake & Output 11/19/17 11/20/17 11/20/17 18:59 06:59 18:59 Intake Total 50 / 50 550 / 550 580 / 580 Output Total 1500 / 1500 700 / 700 1999 / 1999 Balance -1450 / -1450 -150 / -150 -1420 / -1420 Weight 69 kg 67.5 kg Intake: IV 50 / 50 550 / 550 580 / 580 EPINEPHrine (1:1000) Inj 4 MG 79 / 79 In D5W Inj 246 ML @ 10 MCG/MIN 37.5 mls/hr IV.CONT TITRATE PRN Rx#:[id number] Versed Inj 50 mg In 50 ml @ 2 50 / 50 100 / 100 100 / 100 MG/HR 2 mls/hr IV.CONT TITRATE PRN Rx#:[id number] Primacor Inj 20 MG In NS Inj 80 200 / 200 100 / 100 ML @ 0.5 MCG/KG/MIN 10.5 mls/ hr IV.CONT .Q9H32M [facility] Rx#: [id number] Levophed Inj 8 MG In D5W Inj 250 / 250 242 ML @ 2 MCG/MIN 3.75 mls/hr IV.CONT TITRATE PRN Rx#: [id number] Cardene Inj 25 MG In NS Inj 240 51 / 51 ML @ 5 MG/HR 50 mls/hr IV.CONT TITRATE PRN Rx#:[id number] Flexbumin 25% Inj 100 ML @ 60 200 / 200 mls/hr IV.SIG WITH DIALYSIS PRN Rx#:[id number] Oral 0 / 0 Tube Feeding 0 / 0 Output: Stool 200 / 200 50 / 50 Hemodialysis Amount 1999 / 1999 Urine Amount (Catheter) 1300 / 1300 650 / 650 Indwelling Urethral Catheter 1300 / 1300 650 / 650 Other: Date of Last Bowel Movement 11/19/17 11/20/17 11/20/17 # Bowel Movements 1 Weight On Admission 70 kg - Urinary Catheter Management Indwelling Urethral Catheter Cath placed during this visit: no <Sumanth Cha - Last Filed: 11/20/17 18:10> Assessment and Plan - Assessment (1) Acute on chronic renal failure Code(s): N17.9 - Acute kidney failure, unspecified; N18.9 - Chronic kidney disease, unspecified Status: Acute Qualifiers: Acute renal failure type: unspecified Chronic kidney disease stage: unspecified stage Qualified Code(s): N17.9 - Acute kidney failure, unspecified ; N18.9 - Chronic kidney disease, unspecified Plan: Acute renal failure with a creatinine of 2.41 and potassium level of 7.0, with treatment repeat potassium level at 6.8 on day of consult. CHRISTINA most likely ATN with FeNa of 2.87 and urine osmolarity of 3.09 from possible cardiogenic shock and hypotension CT of abdomen with kidneys normal in size and shape. No evidence of mass or hydronephrosis. Creatinine on 07/18 at 0.89. Creatinine at 2.07 and urinary output of 1.9 L/24 hours Complements are low and RACHID and ANCA are pending Hemodialysis initiated yesterday 12/20 for resistant hyperkalemia and anasarca Seen during hemodialysis today plan to remove 2 liters. Hypokalemia at 3.4, 4 K bath with hemodialysis. Avoid nephrotoxins including NSAIDS, aminoglycosides, and IV contrast Next hemodialysis is planned for Saturday will assess need prior to dialysis. <Karine Turcios - Last Filed: 11/20/17 15:31> - Assessment (1) Acute on chronic renal failure Code(s): N17.9 - Acute kidney failure, unspecified; N18.9 - Chronic kidney disease, unspecified Status: Acute Qualifiers: Acute renal failure type: unspecified Chronic kidney disease stage: unspecified stage Qualified Code(s): N17.9 - Acute kidney failure, unspecified ; N18.9 - Chronic kidney disease, unspecified Plan: Patient seen and examined, agree with above. HD done in AM. Now follow the urine out put and BMP. HD as needed. <Sumanth Cha - Last Filed: 11/20/17 18:10>
[2017-11-20] MEDS ORDERED: Morphine Inj 4 MG/ML Vial ONE (11:21)
--- NOTE | 2017-11-20 12:16 | P.PNPAL ---
Reason for Visit Reason for visit: a. To assist with evaluation and management of symptoms including: Altered mental status, edema b. To assist medical decision maker(s) with: better understanding of current medical conditions; weighing benefits/burdens of medical treatment options; making medical treatment decisions. Subjective Subjective/Interval History: Patient seen today to evaluate symptom management of altered mental status, edema. His edema is improving with hemodialysis, which was originally started due to acute hyperkalemia as well as volume overload. Urine output over the last 24 hours was 1900 mL. Patient has baseline renal insufficiency, but presented with a potassium of 7.0. Today that is 3.4 after dialysis and B natruretic peptide has declined from 4307 to 2,134 with aggressive fluid removal. Dialysis management per nephrology. With sedation off he arouses to stimuli, agitated, not following commands. He remains sedated due to his fragile cardiac status, need for inotropic and vasopressor support. No spontaneous breathing trials at this time secondary to altered mental status, fragile cardiac status, need for vasopressor and inotropic support. . Family/Friend Interactions: Contacted by his sister, Kaylie Gama, this morning who is the caregiver for the patient's mother, Angelina Medina. Ms. Gama states that the mother is capable of making these decisions for her son and after conversation with Ms. Medina, she answered questions appropriately, asked appropriate questions regarding her son' s condition and determined that it would be her son's wishes to naturally rather than undergo aggressive medical interventions which would continue his debility. Per [place] statutes, his mother would be the healthcare proxy, as the patient was never and had no children. His mother is readily available and willing to serve. Family meeting is planned with Ms. Gama and Ms. Medina on 11/22 at 11 AM. At that time patient's progress will be reviewed for further decision-making. . Objective Vital Signs: Vital Signs 11/19/17 12:00 11/19/17 13:00 11/19/17 14:00 Temperature Pulse Rate 83 85 90 Respiratory Rate 22 0 L 22 Blood Pressure 136/95 H 122/65 Pulse Oximetry 100 99 96 11/19/17 15:00 11/19/17 16:00 11/19/17 16:29 Temperature 97.1 F L Pulse Rate 97 H 105 H Respiratory Rate 22 22 22 Blood Pressure 101/61 Pulse Oximetry 97 96 97 11/19/17 17:00 11/19/17 18:00 11/19/17 18:10 Temperature Pulse Rate 100 H 96 H 97 H Respiratory Rate 22 16 16 Blood Pressure 116/72 Pulse Oximetry 98 97 99 11/19/17 19:00 11/19/17 20:00 11/19/17 20:17 Temperature 98.0 F Pulse Rate 101 H 99 H 99 H Respiratory Rate 18 26 H 22 Blood Pressure 108/70 119/68 Pulse Oximetry 100 100 99 11/19/17 21:00 11/19/17 22:00 11/19/17 23:00 Temperature Pulse Rate 98 H 96 H 98 H Respiratory Rate 19 16 16 Blood Pressure 119/65 115/74 129/68 Pulse Oximetry 100 99 99 11/19/17 23:48 11/20/17 00:00 11/20/17 01:00 Temperature 97.5 F L Pulse Rate 100 H 139 H Respiratory Rate 17 16 15 Blood Pressure 104/60 140/75 Pulse Oximetry 100 100 100 11/20/17 02:00 11/20/17 02:01 11/20/17 03:00 Temperature Pulse Rate 95 H 95 H 95 H Respiratory Rate 16 16 16 Blood Pressure 112/72 Pulse Oximetry 99 99 99 11/20/17 03:02 11/20/17 04:00 11/20/17 05:00 Temperature 99.0 F Pulse Rate 95 H 96 H 99 H Respiratory Rate 16 16 16 Blood Pressure 113/74 90/54 L Pulse Oximetry 99 99 99 11/20/17 06:00 11/20/17 07:00 11/20/17 07:08 Temperature Pulse Rate 96 H 92 H 92 H Respiratory Rate 16 16 8 L Blood Pressure 123/63 Pulse Oximetry 99 99 99 11/20/17 08:00 11/20/17 08:30 11/20/17 09:00 Temperature 97.6 F Pulse Rate 90 87 Respiratory Rate 18 16 16 Blood Pressure 110/63 100/56 L Pulse Oximetry 100 100 100 Intake & Output 11/19/17 11/20/17 11/20/17 18:59 06:59 18:59 Intake Total 50 / 50 550 / 550 430 / 430 Output Total 1500 / 1500 700 / 700 Balance -1450 / -1450 -150 / -150 430 / 430 Weight 152 lb 1.903 oz 148 lb 12.992 oz Intake: IV 50 / 50 550 / 550 430 / 430 EPINEPHrine (1:1000) Inj 4 MG 79 / 79 In D5W Inj 246 ML @ 10 MCG/MIN 37.5 mls/hr IV.CONT TITRATE PRN Rx#:[id number] Versed Inj 50 mg In 50 ml @ 2 50 / 50 100 / 100 50 / 50 MG/HR 2 mls/hr IV.CONT TITRATE PRN Rx#:[id number] Primacor Inj 20 MG In NS Inj 80 200 / 200 ML @ 0.5 MCG/KG/MIN 10.5 mls/ hr IV.CONT .[id number] RUDDY Rx#: [id number] Levophed Inj 8 MG In D5W Inj 250 / 250 242 ML @ 2 MCG/MIN 3.75 mls/hr IV.CONT TITRATE PRN Rx#: [id number] Cardene Inj 25 MG In NS Inj 240 51 / 51 ML @ 5 MG/HR 50 mls/hr IV.CONT TITRATE PRN Rx#:[id number] Flexbumin 25% Inj 100 ML @ 60 200 / 200 mls/hr IV.SIG WITH DIALYSIS PRN Rx#:[id number] Oral 0 / 0 Tube Feeding 0 / 0 Output: Stool 200 / 200 50 / 50 Urine Amount (Catheter) 1300 / 1300 650 / 650 Indwelling Urethral Catheter 1300 / 1300 650 / 650 Other: Date of Last Bowel Movement 11/19/17 11/20/17 11/20/17 # Bowel Movements 1 Weight On Admission 154 lb 5.177 oz Physical Exam: CONSTITUTIONAL/GENERAL: This is an adequately nourished patient, intubated, sedated, in no apparent distress. TUBES/LINES/DRAINS: Right IJ Vas-Cath, right subclavian central line, right radial arterial line, ETT, Smith, rectal tube. SKIN: No jaundice, rashes, or lesions. No wounds seen anteriorly. Skin temperature appropriate. Not diaphoretic. HEAD: Atraumatic. Normocephalic. EYES: Pupils equal and round and sluggishly reactive. No scleral icterus. No injection or drainage. Fundi not examined. ENT: Nose without bleeding or purulent drainage. Orally intubated. NECK: Trachea midline. Supple, nontender. No palpable thyroid enlargement or nodularity. Severe JVD. CARDIOVASCULAR: S1, S2, S3. Regular rate and rhythm without gallops, or rubs. Soft 1/6 systolic ejection murmur. No JVD. Peripheral pulses symmetric. RESPIRATORY/CHEST: Symmetric, unlabored respirations. Clear, diminished to auscultation. Breath sounds equal bilaterally. No wheezes, rales, or rhonchi. GASTROINTESTINAL: Abdomen soft, nondistended. No hepato-splenomegaly, or palpable masses. Bowel sounds hypoactive. GENITOURINARY: Without palpable bladder distension. Smith catheter in place. MUSCULOSKELETAL: Extremities without clubbing or cyanosis, 1+ edema. No joint tenderness or effusion noted. No mottling or clubbing. LYMPHATICS: No palpable cervical or supraclavicular adenopathy. NEUROLOGICAL: Sedated. PSYCHIATRIC: Sedated. . Diagnostic Tests Laboratory: Laboratory Results - last 72 hr 11/19/17 11/19/17 11/19/17 03:45 04:15 04:15 WBC 3.8 L RBC 5.74 Hgb 16.7 Hct 53.1 H MCV 92.5 MCH 29.0 MCHC 31.3 L RDW 18.5 H Plt Count 92 L D MPV 10.5 Prelim Diff (Auto) Slide review pending Neut % (Auto) 76.3 H Lymph % (Auto) 16.0 [place] % (Auto) 6.0 Eos % (Auto) 0.8 Baso % (Auto) 0.9 Neut # (Auto) 2.9 Lymph # (Auto) 0.6 L [place] # (Auto) 0.2 Eos # (Auto) 0.0 Baso # (Auto) 0.0 WBC Differential . Seg Neuts % (Manual) Band Neuts % (Manual) Lymphocytes % (Manual) Monocytes % (Manual) Abs Neuts (Manual) Differential Comment . Platelet Estimate Low L Platelet Morphology Enlarged H Ovalocytes Acanthocytes (Spur) PT 16.4 H INR 1.6 APTT 28.7 Puncture Site Patient Temperature O2 Saturation ABG pH ABG pCO2 ABG pO2 ABG HCO3 ABG O2 Content ABG Base Excess ABG Methemoglobin Hemoglobin Carboxyhemoglobin O2 Delivery Device Liter Flow Vent Setting Inspired O2 Critical Value Sodium Potassium Chloride Carbon Dioxide Anion Gap BUN Creatinine Estimated GFR POC Glucose 93 Random Glucose Lactic Acid Calcium Phosphorus Magnesium Total Bilirubin AST ALT Alkaline Phosphatase Total Creatine Kinase CK-MB (CK-2) CK-MB (CK-2) % Troponin I B-Natriuretic Peptide Total Protein Albumin Lipase Cortisol Urine Color Urine Clarity Urine pH Ur Specific [place] Urine Protein Urine Glucose (UA) Urine Ketones Urine Occult Blood Urine Nitrate Urine Bilirubin Urine Urobilinogen Ur Leukocyte Esterase Urine RBC Urine WBC Ur Squamous Epith Cells Amorphous Sediment Urine Bacteria Hyaline Casts Urine Mucus Micro UA Comment Urine Culture Comments Urine Osmolality Ur Random Creatinine Ur Random Sodium Nasal Screen MRSA (PCR) Stl C.difficile Tox PCR St C. diff Tox Epid 027 Urine Opiates Screen Ur Barbiturates Screen Ur Amphetamines Screen U Benzodiazepines Scrn Urine Cocaine Screen U Cannabinoids Screen Serum Alcohol Complement C3 Complement C4 Hepatitis A IgM Ab Hep Bs Antigen Hep B Core IgM Ab Hep C IgG Ab 11/19/17 11/19/17 11/19/17 04:15 04:15 06:00 WBC RBC Hgb Hct MCV MCH MCHC RDW Plt Count MPV Prelim Diff (Auto) Neut % (Auto) Lymph % (Auto) [place] % (Auto) Eos % (Auto) Baso % (Auto) Neut # (Auto) Lymph # (Auto) [place] # (Auto) Eos # (Auto) Baso # (Auto) WBC Differential Seg Neuts % (Manual) Band Neuts % (Manual) Lymphocytes % (Manual) Monocytes % (Manual) Abs Neuts (Manual) Differential Comment Platelet Estimate Platelet Morphology Ovalocytes Acanthocytes (Spur) PT INR APTT Puncture Site Patient Temperature O2 Saturation ABG pH ABG pCO2 ABG pO2 ABG HCO3 ABG O2 Content ABG Base Excess ABG Methemoglobin Hemoglobin Carboxyhemoglobin O2 Delivery Device Liter Flow Vent Setting Inspired O2 Critical Value Sodium 140 Potassium 7.0 H* Chloride 113 H Carbon Dioxide 14.2 L Anion Gap 13 BUN 47 H Creatinine 2.41 H Estimated GFR 34 L POC Glucose Random Glucose 76 Lactic Acid Calcium 8.2 L Phosphorus Magnesium 2.6 H Total Bilirubin 2.1 H AST 200 H ALT 72 Alkaline Phosphatase 71 Total Creatine Kinase 1302 H CK-MB (CK-2) 25.4 H CK-MB (CK-2) % 2.0 Troponin I 0.20 H B-Natriuretic Peptide 4307 H Total Protein 8.0 Albumin 2.4 L Lipase 184 Cortisol Urine Color Urine Clarity Urine pH Ur Specific [place] Urine Protein Urine Glucose (UA) Urine Ketones Urine Occult Blood Urine Nitrate Urine Bilirubin Urine Urobilinogen Ur Leukocyte Esterase Urine RBC Urine WBC Ur Squamous Epith Cells Amorphous Sediment Urine Bacteria Hyaline Casts Urine Mucus Micro UA Comment Urine Culture Comments Urine Osmolality Ur Random Creatinine Ur Random Sodium Nasal Screen MRSA (PCR) Stl C.difficile Tox PCR Negative St C. diff Tox Epid 027 Negative Urine Opiates Screen Ur Barbiturates Screen Ur Amphetamines Screen U Benzodiazepines Scrn Urine Cocaine Screen U Cannabinoids Screen Serum Alcohol Less than 3 Complement C3 Complement C4 Hepatitis A IgM Ab Hep Bs Antigen Hep B Core IgM Ab Hep C IgG Ab 11/19/17 11/19/17 11/19/17 06:35 06:35 06:35 WBC RBC Hgb Hct MCV MCH MCHC RDW Plt Count MPV Prelim Diff (Auto) Neut % (Auto) Lymph % (Auto) [place] % (Auto) Eos % (Auto) Baso % (Auto) Neut # (Auto) Lymph # (Auto) [place] # (Auto) Eos # (Auto) Baso # (Auto) WBC Differential Seg Neuts % (Manual) Band Neuts % (Manual) Lymphocytes % (Manual) Monocytes % (Manual) Abs Neuts (Manual) Differential Comment Platelet Estimate Platelet Morphology Ovalocytes Acanthocytes (Spur) PT INR APTT Puncture Site Patient Temperature O2 Saturation ABG pH ABG pCO2 ABG pO2 ABG HCO3 ABG O2 Content ABG Base Excess ABG Methemoglobin Hemoglobin Carboxyhemoglobin O2 Delivery Device Liter Flow Vent Setting Inspired O2 Critical Value Sodium Potassium Chloride Carbon Dioxide Anion Gap BUN Creatinine Estimated GFR POC Glucose Random Glucose Lactic Acid Calcium Phosphorus Magnesium Total Bilirubin AST ALT Alkaline Phosphatase Total Creatine Kinase CK-MB (CK-2) CK-MB (CK-2) % Troponin I B-Natriuretic Peptide Total Protein Albumin Lipase Cortisol 59.8 Urine Color [place] Urine Clarity Cloudy H Urine pH 5.0 Ur Specific [place] 1.019 Urine Protein 500 or greater Urine Glucose (UA) Negative Urine Ketones Negative Urine Occult Blood Large H Urine Nitrate Negative Urine Bilirubin Negative Urine Urobilinogen 4 or greater Ur Leukocyte Esterase Negative Urine RBC 38 H Urine WBC 18 H Ur Squamous Epith Cells <1 Amorphous Sediment Few H Urine Bacteria Few H Hyaline Casts 6 Urine Mucus Few H Micro UA Comment Cath-culture ind Urine Culture Comments Cath-cult indicated Urine Osmolality Ur Random Creatinine Ur Random Sodium Nasal Screen MRSA (PCR) Stl C.difficile Tox PCR St C. diff Tox Epid 027 Urine Opiates Screen Neg Ur Barbiturates Screen Neg Ur Amphetamines Screen Neg U Benzodiazepines Scrn Neg Urine Cocaine Screen Pos H U Cannabinoids Screen Neg Serum Alcohol Complement C3 Complement C4 Hepatitis A IgM Ab Hep Bs Antigen Hep B Core IgM Ab Hep C IgG Ab 11/19/17 11/19/17 11/19/17 06:35 08:03 09:15 WBC RBC Hgb Hct MCV MCH MCHC RDW Plt Count MPV Prelim Diff (Auto) Neut % (Auto) Lymph % (Auto) [place] % (Auto) Eos % (Auto) Baso % (Auto) Neut # (Auto) Lymph # (Auto) [place] # (Auto) Eos # (Auto) Baso # (Auto) WBC Differential Seg Neuts % (Manual) Band Neuts % (Manual) Lymphocytes % (Manual) Monocytes % (Manual) Abs Neuts (Manual) Differential Comment Platelet Estimate Platelet Morphology Ovalocytes Acanthocytes (Spur) PT INR APTT Puncture Site Left femoral Patient Temperature 98.6 O2 Saturation 96 ABG pH 7.26 L* ABG pCO2 40 ABG pO2 129 H ABG HCO3 17 L ABG O2 Content 21.6 H ABG Base Excess -8.4 L ABG Methemoglobin 1.3 Hemoglobin 15.9 Carboxyhemoglobin 0.8 O2 Delivery Device Nasal cannula Liter Flow 6.00 Vent Setting Inspired O2 21 Critical Value Yes Sodium Potassium 6.9 H* Chloride Carbon Dioxide Anion Gap BUN Creatinine Estimated GFR POC Glucose Random Glucose Lactic Acid Calcium Phosphorus Magnesium Total Bilirubin AST ALT Alkaline Phosphatase Total Creatine Kinase CK-MB (CK-2) CK-MB (CK-2) % Troponin I B-Natriuretic Peptide Total Protein Albumin Lipase Cortisol Urine Color Urine Clarity Urine pH Ur Specific [place] Urine Protein Urine Glucose (UA) Urine Ketones Urine Occult Blood Urine Nitrate Urine Bilirubin Urine Urobilinogen Ur Leukocyte Esterase Urine RBC Urine WBC Ur Squamous Epith Cells Amorphous Sediment Urine Bacteria Hyaline Casts Urine Mucus Micro UA Comment Urine Culture Comments Urine Osmolality Ur Random Creatinine Ur Random Sodium Nasal Screen MRSA (PCR) Not detected Stl C.difficile Tox PCR St C. diff Tox Epid 027 Urine Opiates Screen Ur Barbiturates Screen Ur Amphetamines Screen U Benzodiazepines Scrn Urine Cocaine Screen U Cannabinoids Screen Serum Alcohol Complement C3 Complement C4 Hepatitis A IgM Ab Hep Bs Antigen Hep B Core IgM Ab Hep C IgG Ab 11/19/17 11/19/17 11/19/17 09:15 09:32 09:32 WBC RBC Hgb Hct MCV MCH MCHC RDW Plt Count MPV Prelim Diff (Auto) Neut % (Auto) Lymph % (Auto) [place] % (Auto) Eos % (Auto) Baso % (Auto) Neut # (Auto) Lymph # (Auto) [place] # (Auto) Eos # (Auto) Baso # (Auto) WBC Differential Seg Neuts % (Manual) Band Neuts % (Manual) Lymphocytes % (Manual) Monocytes % (Manual) Abs Neuts (Manual) Differential Comment Platelet Estimate Platelet Morphology Ovalocytes Acanthocytes (Spur) PT INR APTT Puncture Site Art line Patient Temperature 98.6 O2 Saturation 97 ABG pH 7.49 H ABG pCO2 29 L ABG pO2 293 H ABG HCO3 22 ABG O2 Content 20.8 H ABG Base Excess -1.4 ABG Methemoglobin 1.2 Hemoglobin 14.7 Carboxyhemoglobin 1.3 O2 Delivery Device Ventilator Liter Flow Vent Setting Prvc/ac Inspired O2 60 Critical Value No Sodium Potassium 5.6 H D Chloride Carbon Dioxide Anion Gap BUN Creatinine Estimated GFR POC Glucose Random Glucose Lactic Acid 4.2 H* Calcium Phosphorus Magnesium Total Bilirubin AST ALT Alkaline Phosphatase Total Creatine Kinase CK-MB (CK-2) CK-MB (CK-2) % Troponin I 0.25 H B-Natriuretic Peptide Total Protein Albumin Lipase Cortisol Urine Color Urine Clarity Urine pH Ur Specific [place] Urine Protein Urine Glucose (UA) Urine Ketones Urine Occult Blood Urine Nitrate Urine Bilirubin Urine Urobilinogen Ur Leukocyte Esterase Urine RBC Urine WBC Ur Squamous Epith Cells Amorphous Sediment Urine Bacteria Hyaline Casts Urine Mucus Micro UA Comment Urine Culture Comments Urine Osmolality Ur Random Creatinine Ur Random Sodium Nasal Screen MRSA (PCR) Stl C.difficile Tox PCR St C. diff Tox Epid 027 Urine Opiates Screen Ur Barbiturates Screen Ur Amphetamines Screen U Benzodiazepines Scrn Urine Cocaine Screen U Cannabinoids Screen Serum Alcohol Complement C3 Complement C4 Hepatitis A IgM Ab Hep Bs Antigen Hep B Core IgM Ab Hep C IgG Ab 11/19/17 11/19/17 11/19/17 11:06 11:18 11:46 WBC RBC Hgb Hct MCV MCH MCHC RDW Plt Count MPV Prelim Diff (Auto) Neut % (Auto) Lymph % (Auto) [place] % (Auto) Eos % (Auto) Baso % (Auto) Neut # (Auto) Lymph # (Auto) [place] # (Auto) Eos # (Auto) Baso # (Auto) WBC Differential Seg Neuts % (Manual) Band Neuts % (Manual) Lymphocytes % (Manual) Monocytes % (Manual) Abs Neuts (Manual) Differential Comment Platelet Estimate Platelet Morphology Ovalocytes Acanthocytes (Spur) PT INR APTT Puncture Site Patient Temperature O2 Saturation ABG pH ABG pCO2 ABG pO2 ABG HCO3 ABG O2 Content ABG Base Excess ABG Methemoglobin Hemoglobin Carboxyhemoglobin O2 Delivery Device Liter Flow Vent Setting Inspired O2 Critical Value Sodium Potassium Chloride Carbon Dioxide Anion Gap BUN Creatinine Estimated GFR POC Glucose 39 L* 168 H Random Glucose Lactic Acid Calcium Phosphorus Magnesium Total Bilirubin AST ALT Alkaline Phosphatase Total Creatine Kinase CK-MB (CK-2) CK-MB (CK-2) % Troponin I B-Natriuretic Peptide Total Protein Albumin Lipase Cortisol Urine Color Urine Clarity Urine pH Ur Specific [place] Urine Protein Urine Glucose (UA) Urine Ketones Urine Occult Blood Urine Nitrate Urine Bilirubin Urine Urobilinogen Ur Leukocyte Esterase Urine RBC Urine WBC Ur Squamous Epith Cells Amorphous Sediment Urine Bacteria Hyaline Casts Urine Mucus Micro UA Comment Urine Culture Comments Urine Osmolality Ur Random Creatinine Ur Random Sodium Nasal Screen MRSA (PCR) Stl C.difficile Tox PCR St C. diff Tox Epid 027 Urine Opiates Screen Ur Barbiturates Screen Ur Amphetamines Screen U Benzodiazepines Scrn Urine Cocaine Screen U Cannabinoids Screen Serum Alcohol Complement C3 Complement C4 Hepatitis A IgM Ab Nonreactive Hep Bs Antigen Nonreactive Hep B Core IgM Ab Nonreactive Hep C IgG Ab Reactive H 11/19/17 11/19/17 11/19/17 16:15 16:15 16:45 WBC RBC Hgb Hct MCV MCH MCHC RDW Plt Count MPV Prelim Diff (Auto) Neut % (Auto) Lymph % (Auto) [place] % (Auto) Eos % (Auto) Baso % (Auto) Neut # (Auto) Lymph # (Auto) [place] # (Auto) Eos # (Auto) Baso # (Auto) WBC Differential Seg Neuts % (Manual) Band Neuts % (Manual) Lymphocytes % (Manual) Monocytes % (Manual) Abs Neuts (Manual) Differential Comment Platelet Estimate Platelet Morphology Ovalocytes Acanthocytes (Spur) PT INR APTT Puncture Site Patient Temperature O2 Saturation ABG pH ABG pCO2 ABG pO2 ABG HCO3 ABG O2 Content ABG Base Excess ABG Methemoglobin Hemoglobin Carboxyhemoglobin O2 Delivery Device Liter Flow Vent Setting Inspired O2 Critical Value Sodium Potassium Chloride Carbon Dioxide Anion Gap BUN Creatinine Estimated GFR POC Glucose 108 Random Glucose Lactic Acid 2.3 H Calcium Phosphorus Magnesium Total Bilirubin AST ALT Alkaline Phosphatase Total Creatine Kinase CK-MB (CK-2) CK-MB (CK-2) % Troponin I 0.26 H B-Natriuretic Peptide Total Protein Albumin Lipase Cortisol Urine Color Urine Clarity Urine pH Ur Specific [place] Urine Protein Urine Glucose (UA) Urine Ketones Urine Occult Blood Urine Nitrate Urine Bilirubin Urine Urobilinogen Ur Leukocyte Esterase Urine RBC Urine WBC Ur Squamous Epith Cells Amorphous Sediment Urine Bacteria Hyaline Casts Urine Mucus Micro UA Comment Urine Culture Comments Urine Osmolality Ur Random Creatinine Ur Random Sodium Nasal Screen MRSA (PCR) Stl C.difficile Tox PCR St C. diff Tox Epid 027 Urine Opiates Screen Ur Barbiturates Screen Ur Amphetamines Screen U Benzodiazepines Scrn Urine Cocaine Screen U Cannabinoids Screen Serum Alcohol Complement C3 Complement C4 Hepatitis A IgM Ab Hep Bs Antigen Hep B Core IgM Ab Hep C IgG Ab 11/19/17 11/19/17 11/19/17 17:40 20:30 20:45 WBC RBC Hgb Hct MCV MCH MCHC RDW Plt Count MPV Prelim Diff (Auto) Neut % (Auto) Lymph % (Auto) [place] % (Auto) Eos % (Auto) Baso % (Auto) Neut # (Auto) Lymph # (Auto) [place] # (Auto) Eos # (Auto) Baso # (Auto) WBC Differential Seg Neuts % (Manual) Band Neuts % (Manual) Lymphocytes % (Manual) Monocytes % (Manual) Abs Neuts (Manual) Differential Comment Platelet Estimate Platelet Morphology Ovalocytes Acanthocytes (Spur) PT INR APTT Puncture Site Art line Patient Temperature 98.6 O2 Saturation 96 ABG pH 7.61 H* ABG pCO2 24 L* ABG pO2 104 ABG HCO3 24 ABG O2 Content 18.0 ABG Base Excess 2.5 H ABG Methemoglobin 1.4 Hemoglobin 13.3 Carboxyhemoglobin 1.2 O2 Delivery Device Ventilator Liter Flow Vent Setting Prvc/ac Inspired O2 40 Critical Value Yes Sodium Potassium Chloride Carbon Dioxide Anion Gap BUN Creatinine Estimated GFR POC Glucose 101 Random Glucose Lactic Acid Calcium Phosphorus Magnesium Total Bilirubin AST ALT Alkaline Phosphatase Total Creatine Kinase CK-MB (CK-2) CK-MB (CK-2) % Troponin I B-Natriuretic Peptide Total Protein Albumin Lipase Cortisol Urine Color Urine Clarity Urine pH Ur Specific [place] Urine Protein Urine Glucose (UA) Urine Ketones Urine Occult Blood Urine Nitrate Urine Bilirubin Urine Urobilinogen Ur Leukocyte Esterase Urine RBC Urine WBC Ur Squamous Epith Cells Amorphous Sediment Urine Bacteria Hyaline Casts Urine Mucus Micro UA Comment Urine Culture Comments Urine Osmolality Ur Random Creatinine 42 Ur Random Sodium 84 Nasal Screen MRSA (PCR) Stl C.difficile Tox PCR St C. diff Tox Epid 027 Urine Opiates Screen Ur Barbiturates Screen Ur Amphetamines Screen U Benzodiazepines Scrn Urine Cocaine Screen U Cannabinoids Screen Serum Alcohol Complement C3 Complement C4 Hepatitis A IgM Ab Hep Bs Antigen Hep B Core IgM Ab Hep C IgG Ab 11/19/17 11/19/17 11/20/17 20:45 20:45 04:50 WBC 6.4 RBC 4.69 Hgb 13.6 D Hct 41.5 MCV 88.5 D MCH 29.0 MCHC 32.7 RDW 16.2 Plt Count 87 L MPV 8.7 Prelim Diff (Auto) Slide review pending Neut % (Auto) 84.3 H Lymph % (Auto) 7.9 L [place] % (Auto) 7.4 Eos % (Auto) 0.2 Baso % (Auto) 0.2 Neut # (Auto) 5.4 Lymph # (Auto) 0.5 L [place] # (Auto) 0.5 Eos # (Auto) 0.0 Baso # (Auto) 0.0 WBC Differential Manual diff final Seg Neuts % (Manual) 81 H Band Neuts % (Manual) 14 H Lymphocytes % (Manual) 2 L Monocytes % (Manual) 3 Abs Neuts (Manual) 6.1 Differential Comment . Platelet Estimate Low L Platelet Morphology Enlarged H Ovalocytes 1+ H Acanthocytes (Spur) Occ H PT INR APTT Puncture Site Patient Temperature O2 Saturation ABG pH ABG pCO2 ABG pO2 ABG HCO3 ABG O2 Content ABG Base Excess ABG Methemoglobin Hemoglobin Carboxyhemoglobin O2 Delivery Device Liter Flow Vent Setting Inspired O2 Critical Value Sodium Potassium Chloride Carbon Dioxide Anion Gap BUN Creatinine Estimated GFR POC Glucose Random Glucose Lactic Acid Calcium Phosphorus Magnesium Total Bilirubin AST ALT Alkaline Phosphatase Total Creatine Kinase CK-MB (CK-2) CK-MB (CK-2) % Troponin I B-Natriuretic Peptide Total Protein Albumin Lipase Cortisol Urine Color Urine Clarity Urine pH Ur Specific [place] Urine Protein Urine Glucose (UA) Urine Ketones Urine Occult Blood Urine Nitrate Urine Bilirubin Urine Urobilinogen Ur Leukocyte Esterase Urine RBC Urine WBC Ur Squamous Epith Cells Amorphous Sediment Urine Bacteria Hyaline Casts Urine Mucus Micro UA Comment Urine Culture Comments Urine Osmolality 309 Ur Random Creatinine Ur Random Sodium Cancelled Nasal Screen MRSA (PCR) Stl C.difficile Tox PCR St C. diff Tox Epid 027 Urine Opiates Screen Ur Barbiturates Screen Ur Amphetamines Screen U Benzodiazepines Scrn Urine Cocaine Screen U Cannabinoids Screen Serum Alcohol Complement C3 Complement C4 Hepatitis A IgM Ab Hep Bs Antigen Hep B Core IgM Ab Hep C IgG Ab 11/20/17 11/20/17 11/20/17 04:50 04:50 04:50 WBC RBC Hgb Hct MCV MCH MCHC RDW Plt Count MPV Prelim Diff (Auto) Neut % (Auto) Lymph % (Auto) [place] % (Auto) Eos % (Auto) Baso % (Auto) Neut # (Auto) Lymph # (Auto) [place] # (Auto) Eos # (Auto) Baso # (Auto) WBC Differential Seg Neuts % (Manual) Band Neuts % (Manual) Lymphocytes % (Manual) Monocytes % (Manual) Abs Neuts (Manual) Differential Comment Platelet Estimate Platelet Morphology Ovalocytes Acanthocytes (Spur) PT INR APTT Puncture Site Patient Temperature O2 Saturation ABG pH ABG pCO2 ABG pO2 ABG HCO3 ABG O2 Content ABG Base Excess ABG Methemoglobin Hemoglobin Carboxyhemoglobin O2 Delivery Device Liter Flow Vent Setting Inspired O2 Critical Value Sodium 144 Potassium 3.4 L D Chloride 109 H Carbon Dioxide 28.4 D Anion Gap 7 BUN 44 H Creatinine 2.07 H Estimated GFR 40 L POC Glucose Random Glucose 110 H Lactic Acid 1.1 Calcium 7.8 L Phosphorus 2.8 Magnesium 2.0 D Total Bilirubin 1.8 H AST 274 H ALT 130 H Alkaline Phosphatase 59 Total Creatine Kinase CK-MB (CK-2) CK-MB (CK-2) % Troponin I B-Natriuretic Peptide 2134 H Total Protein 6.7 D Albumin 2.5 L Lipase Cortisol Urine Color Urine Clarity Urine pH Ur Specific [place] Urine Protein Urine Glucose (UA) Urine Ketones Urine Occult Blood Urine Nitrate Urine Bilirubin Urine Urobilinogen Ur Leukocyte Esterase Urine RBC Urine WBC Ur Squamous Epith Cells Amorphous Sediment Urine Bacteria Hyaline Casts Urine Mucus Micro UA Comment Urine Culture Comments Urine Osmolality Ur Random Creatinine Ur Random Sodium Nasal Screen MRSA (PCR) Stl C.difficile Tox PCR St C. diff Tox Epid 027 Urine Opiates Screen Ur Barbiturates Screen Ur Amphetamines Screen U Benzodiazepines Scrn Urine Cocaine Screen U Cannabinoids Screen Serum Alcohol Complement C3 42 L Complement C4 6 L Hepatitis A IgM Ab Hep Bs Antigen Hep B Core IgM Ab Hep C IgG Ab 11/20/17 11/20/17 07:38 11:45 WBC RBC Hgb Hct MCV MCH MCHC RDW Plt Count MPV Prelim Diff (Auto) Neut % (Auto) Lymph % (Auto) [place] % (Auto) Eos % (Auto) Baso % (Auto) Neut # (Auto) Lymph # (Auto) [place] # (Auto) Eos # (Auto) Baso # (Auto) WBC Differential Seg Neuts % (Manual) Band Neuts % (Manual) Lymphocytes % (Manual) Monocytes % (Manual) Abs Neuts (Manual) Differential Comment Platelet Estimate Platelet Morphology Ovalocytes Acanthocytes (Spur) PT INR APTT Puncture Site Patient Temperature O2 Saturation ABG pH ABG pCO2 ABG pO2 ABG HCO3 ABG O2 Content ABG Base Excess ABG Methemoglobin Hemoglobin Carboxyhemoglobin O2 Delivery Device Liter Flow Vent Setting Inspired O2 Critical Value Sodium Potassium Chloride Carbon Dioxide Anion Gap BUN Creatinine Estimated GFR POC Glucose 96 91 Random Glucose Lactic Acid Calcium Phosphorus Magnesium Total Bilirubin AST ALT Alkaline Phosphatase Total Creatine Kinase CK-MB (CK-2) CK-MB (CK-2) % Troponin I B-Natriuretic Peptide Total Protein Albumin Lipase Cortisol Urine Color Urine Clarity Urine pH Ur Specific [place] Urine Protein Urine Glucose (UA) Urine Ketones Urine Occult Blood Urine Nitrate Urine Bilirubin Urine Urobilinogen Ur Leukocyte Esterase Urine RBC Urine WBC Ur Squamous Epith Cells Amorphous Sediment Urine Bacteria Hyaline Casts Urine Mucus Micro UA Comment Urine Culture Comments Urine Osmolality Ur Random Creatinine Ur Random Sodium Nasal Screen MRSA (PCR) Stl C.difficile Tox PCR St C. diff Tox Epid 027 Urine Opiates Screen Ur Barbiturates Screen Ur Amphetamines Screen U Benzodiazepines Scrn Urine Cocaine Screen U Cannabinoids Screen Serum Alcohol Complement C3 Complement C4 Hepatitis A IgM Ab Hep Bs Antigen Hep B Core IgM Ab Hep C IgG Ab Result Diagrams: 11/20/17 04:50 11/20/17 04:50 Microbiology: Microbiology 11/19/17 11:46 Aerobic Blood Culture - Preliminary Blood - Peripheral No growth in 1 day Anaerobic Blood Culture - Preliminary No growth in 1 day 11/19/17 08:20 Aerobic Blood Culture - Preliminary Blood - Peripheral No growth in 1 day Anaerobic Blood Culture - Preliminary No growth in 1 day Imaging: Abdomen/Pelvis CT 11/19/17 03:55 CONCLUSION: 1. Limited, suboptimal examination performed without intravenous or oral contrast. The study is degraded by motion artifact as well. 2. Abnormal bowel gas pattern with multiple small air-fluid levels. The bowel is suboptimally visualized and evaluated secondary to the lack of the intravenous and oral contrast as well as diffuse ascites. This may represent a gastroenteritis and/or ileus. Obstruction is less likely. 3. Diffuse ascites throughout the abdomen and pelvis. 4. Moderate size right effusion which is increased from the prior study. There is a new small left effusion. 5. Moderate cardiomegaly. 6. No definite gallstones identified. Chest X-Ray 11/19/17 03:55 CONCLUSION: 1. Mild hazy opacity is now noted in the right perihilar region concerning for mild pulmonary edema. 2. The heart size remains mildly enlarged and appearance. Head CT 11/19/17 03:55 CONCLUSION: 1. No acute hemorrhage or mass effect. 2. Mild motion and streak artifact. . Chest X-Ray 11/19/17 08:50 CONCLUSION: 1. ETT in good position. NGT beyond the GE junction. Central lines in good position. 2. Persistent atypical pulmonary edema pattern. Procedures: 11/19/2017: Right radial arterial line placement 11/19/2017: Endotracheal intubation 11/19/2017: Right subclavian triple-lumen catheter placement 11/19/2017 right IJ dialysis catheter placement . 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 He was never and has no children. He was previously in the [employer]. Spiritual: Shank Burnisher available. Legal: No living will or healthcare surrogate completed. Ethical issues impacting care: None noted. . Important Contacts: Mother: Angelina Medina healthcare proxy Sister: Bryan Sharp Sister: Kamille Lucina Brother: Segundobetsy Verdugo Brother: Carter Chavez Sister: Kaylie Gama . Prognosis: His prognosis is poor. He has end-stage heart disease now with an ejection fraction estimated to be less than 10% by environmental specialist echo. He has suffered a decline in heart function since June 2017 when echocardiogram showed a 50-55% ejection fraction at the time of mitral valve repair. Patient continued to abuse cocaine and possibly other substances and when seen in [place] September 2017 for chest pain was found to have non-ischemic cardiomyopathy with a normal coronary artery circulation and ejection fraction of 20-25%. Echocardiogram at this admission shows cardiogenic shock with an EF less than 10%. He is now requiring inotropic support with milrinone and now has acute kidney injury requiring dialysis for both hyperkalemia and fluid overload. At this time he remains on life support, intubated, but is at elevated risk for continued complications and decline. He would be hospice appropriate if goals were consistent. . Code Status: No Code DNR Plan: PLAN: Legal decision maker: At this time the patient is not capacitated for decision making and it is not certain that he will ever regain capacity. He was never and has no children. His mother would be his proxy decision maker per [place] statutes. She had previously been reported to me as demented and unable to make these decisions, however, her daughter, Kaylie, who is her caregiver disputes that and states that her mother is perfectly capable of making these decisions and wishes to be her son's decision-maker. In conversation with Ms. Medina, herself, she appeared appropriate and capable of decision-making. Goals: Aggressive short of no code. CODE STATUS: DO NOT RESUSCITATE SYMPTOMS: * Altered mental status: Presented with altered mental status, positive for cocaine, hypoglycemic, hyperkalemic, in fulminant heart failure, minimally able to make his needs known. Shortly thereafter he required intubation and sedation. He becomes agitated when sedation is lightened but does not follow commands. Possibly related to end stage heart failure. Bedside critical care echo showed severe biventricular dysfunction with EF less than 10%, aortic valve opening only minimally due to low flow. * Edema: Edema is improving on hemodialysis, with 1.5 L removed 11/19 and 2 L removed 11/20. Urine output is adequate. He is receiving inotropic support with milrinone and hemodynamic support with Levophed. Dialysis management per nephrology. Palliative care will continue to follow the patient during hospital course as condition evolves, to assist patient/decision-maker with understanding of their medical conditions, weighing benefits/burdens of treatment options, for clarification of goals of treatment. Additionally will assist with any symptoms of palliative concern. . Attestation Attestation: To help prompt me to consider important information that might be impacting today's encounter and assessment, information from prior notes written by myself or my colleagues may have been "brought forward" into today's note. My signature on this note, however, is an attestation that I personally performed the exam, history, and/or decision-making noted today, and, unless otherwise indicated, the interactions with patient, family, and staff as well as the review of records all occurred today. I also attest that the listed assessment and stated plan reflect my best clinical judgment today based on the combination of historical information, prior notes, and today's exam/ interactions. When time spent is documented, it refers only to time spent today by the signer, or if indicated, combined time spent today by collaborating physician/nurse practitioner. .
[2017-11-20 13:37] LABS: Anti-Nuclear Antibody Screen Pos (Neg)
--- NOTE | 2017-11-20 13:55 | P.PNCC ---
Subjective Subjective Remarks/Hospital Course: 11/19: This is a 57yM with history of cardiomyopathy and an EF 20% who recently underwent mitral valve repair for severe MR. At that time, he had a preserved LVEF. However, he continued to use illicit cocaine, and on subsequent hospital admissions, his EF had fallen to 20%. He represents today with altered mental status, endorsing cocaine use. On further evaluation, he has a potassium of 7, Cr 2.4, AST/ALT 200/72, CK 1302, BNP 4307, co2 14. On my evaluation he is obtunded and agonally breathing, intermittently tachypneic. I performed bedside critical care echo which demonstrated a severe biventricular dysfunction and an EF < 10%. there was spontaneous echo contrast in the LV and the aortic valve appeared to open only minimally due to low-flow. Patient is grossly anasarcic with 3+ edema bilaterally up to the abdomen. he has JVD above the level of the mandible. I emergently intubated the patient (see separate procedure note for details). I emergently placed arterial, central lines, and dialysis catheter. potassium did not improve with medical therapy. we consulted nephrology for emergent HD. I also placed the patient on epinephrine drip for cardiogenic shock. due to the patient's mental status and clinical status, no additional information is available from him. ROS unobtainable. 11/20: Remains sedated, orally intubated on mechanical ventilation. Dialyzed this morning. Remains on pressors. Objective Vital Signs / I&O: Vital Signs 11/19/17 14:00 11/19/17 15:00 11/19/17 16:00 Temperature 97.1 F L Pulse Rate 90 97 H 105 H Respiratory Rate 22 22 22 Blood Pressure 122/65 101/61 Pulse Oximetry 96 97 96 11/19/17 16:29 11/19/17 17:00 11/19/17 18:00 Temperature Pulse Rate 100 H 96 H Respiratory Rate 22 22 16 Blood Pressure Pulse Oximetry 97 98 97 11/19/17 18:10 11/19/17 19:00 11/19/17 20:00 Temperature 98.0 F Pulse Rate 97 H 101 H 99 H Respiratory Rate 16 18 26 H Blood Pressure 116/72 108/70 Pulse Oximetry 99 100 100 11/19/17 20:17 11/19/17 21:00 11/19/17 22:00 Temperature Pulse Rate 99 H 98 H 96 H Respiratory Rate 22 19 16 Blood Pressure 119/68 119/65 115/74 Pulse Oximetry 99 100 99 11/19/17 23:00 11/19/17 23:48 11/20/17 00:00 Temperature 97.5 F L Pulse Rate 98 H 100 H Respiratory Rate 16 17 16 Blood Pressure 129/68 104/60 Pulse Oximetry 99 100 100 11/20/17 01:00 11/20/17 02:00 11/20/17 02:01 Temperature Pulse Rate 139 H 95 H 95 H Respiratory Rate 15 16 16 Blood Pressure 140/75 112/72 Pulse Oximetry 100 99 99 11/20/17 03:00 11/20/17 03:02 11/20/17 04:00 Temperature 99.0 F Pulse Rate 95 H 95 H 96 H Respiratory Rate 16 16 16 Blood Pressure 113/74 90/54 L Pulse Oximetry 99 99 99 11/20/17 05:00 11/20/17 06:00 11/20/17 07:00 Temperature Pulse Rate 99 H 96 H 92 H Respiratory Rate 16 16 16 Blood Pressure Pulse Oximetry 99 99 99 11/20/17 07:08 11/20/17 08:00 11/20/17 08:30 Temperature 97.6 F Pulse Rate 92 H 90 Respiratory Rate 8 L 18 16 Blood Pressure 123/63 110/63 Pulse Oximetry 99 100 100 11/20/17 09:00 11/20/17 10:00 11/20/17 11:00 Temperature Pulse Rate 87 87 93 H Respiratory Rate 16 16 16 Blood Pressure 100/56 L Pulse Oximetry 100 100 100 11/20/17 11:45 11/20/17 12:00 11/20/17 13:00 Temperature 97.6 F Pulse Rate 88 82 Respiratory Rate 16 16 Blood Pressure 110/54 L Pulse Oximetry 93 L 100 Intake & Output 11/19/17 11/20/17 11/20/17 18:59 06:59 18:59 Intake Total 50 / 50 550 / 550 430 / 430 Output Total 1500 / 1500 700 / 700 1999 Balance -1450 / -1450 -150 / -150 -1570 / -1570 Weight 69 kg 67.5 kg Intake: IV 50 / 50 550 / 550 430 / 430 EPINEPHrine (1:1000) Inj 4 MG 79 / 79 In D5W Inj 246 ML @ 10 MCG/MIN 37.5 mls/hr IV.CONT TITRATE PRN Rx#:[id number] Versed Inj 50 mg In 50 ml @ 2 50 / 50 100 / 100 50 / 50 MG/HR 2 mls/hr IV.CONT TITRATE PRN Rx#:[id number] Primacor Inj 20 MG In NS Inj 80 200 / 200 ML @ 0.5 MCG/KG/MIN 10.5 mls/ hr IV.CONT .[id number] RUDDY Rx#: [id number] Levophed Inj 8 MG In D5W Inj 250 / 250 242 ML @ 2 MCG/MIN 3.75 mls/hr IV.CONT TITRATE PRN Rx#: [id number] Cardene Inj 25 MG In NS Inj 240 51 / 51 ML @ 5 MG/HR 50 mls/hr IV.CONT TITRATE PRN Rx#:[id number] Flexbumin 25% Inj 100 ML @ 60 200 / 200 mls/hr IV.SIG WITH DIALYSIS PRN Rx#:[id number] Oral 0 / 0 Tube Feeding 0 / 0 Output: Stool 200 / 200 50 / 50 Hemodialysis Amount 1999 / 1999 Urine Amount (Catheter) 1300 / 1300 650 / 650 Indwelling Urethral Catheter 1300 / 1300 650 / 650 Other: Date of Last Bowel Movement 11/19/17 11/20/17 11/20/17 # Bowel Movements 1 Weight On Admission 70 kg Result Diagrams: 11/20/17 04:50 11/20/17 04:50 Objective Remarks: HEENT/ Neuro: Sedated, orally intubated, Pallor present, no icterus, tongue/ mucosa moist Neck: No JVD Chest/Pulm: on mech vent, good air entry bilaterally, no wheezing or crackles CVS: S1-S2 regular, no murmur GI/abdomen: soft, nontender, bowel sounds sluggish Extremities: warm bilaterally, no edema Assessment and Plan - Assessment and Plan Plan: Assessment: 57yM with severe cardiomyopathy and ongoing cocaine abuse who presents in severe cardiogenic shock combined with active cocaine intoxication. Very critically ill, in extremis, in multiorgan failure. Overall, this is a patient whose cocaine use has complicated his cardiac problems to the point that this is now likely an end-stage process. will consult palliative care to assist the family, but this may be a fatal hospitalization for him due to his ongoing cocaine abuse and now multiorgan failure. Plan by systems: Neurologic: Acute toxic encephalopathy Acute cocaine intoxication Acute metabolic encephalopathy secondary to shock Sedation while intubated with daily sedation vacation. Versed infusion for goal RASS -2 Respiratory: Acute hypoxic and hypercarbic respiratory failure Acute severe pulmonary edema Probable Crack Lung Vent bundle Head of bed elevated Nebs Wean FiO2 for goal SPO2 greater than 90% Asymmetric pulmonary consolidation pattern is consistent with chronic crack cocaine use No SBT today given active shock dialysis for volume overload and pulmonary edema Cardiovascular: Cardiogenic shock Acute severe systolic congestive heart failure exacerbation Acute type II non-ST elevation myocardial infarction secondary to demand ischemia known prior EF 20% (09/2017), now bedside echo appears to be acutely < 10% likely secondary to chronic cocaine use superimposed on cardiomyopathy. emergent HD for fluid removal and preload optimization epinephrine/ levophed and milrinone to assist with cardiac output trend cvp trend lactates watch uop Renal: Acute kidney injury Most likely secondary to cardiogenic shock Smith has been placed Every hour urine outputs Emergent HD Nephrology consult -- Strict I/Os FEN/GI: Severe life-threatening hyperkalemia Severe intravascular volume overload Severe acute protein calorie malnutrition Lactic acidosis Severe anion gap metabolic acidosis N.p.o. while in shock Medical management is failed for hyperkalemia Nephrology consult with emergent dialysis Trend daily BMP, mag, phosphorus 2 A of bicarb IV 1 Trend lactates Trend ABG Heme/ID: Daily CBC No infectious etiology suspected this time Patient has severe diarrhea which is most likely ischemic colitis secondary to severe cardiogenic shock Endocrine: Acute hypoglycemia, severe D10W at 30 miles an hour Frequent glycemic checks -- SSI Prophylaxis: GI Prophylaxis Pepcid IV DVT Prophylaxis -- SCDs Subcu heparin Lines: 11/19 right brachial arterial line 11/19 right subclavian 7 [place] triple-lumen catheter 11/19 right IJ 14 [place] 20 cm dialysis catheter 11/19 Smith This patient remains critically ill with one or more organ systems which are or may become a threat to life. I have spent in excess of 35 minutes discontinuously in the care and management of this patient. This time is exclusive of procedures, and includes, but is not limited to, evaluation of the patient, review of the medical record, discussions with family, consultants, nursing staff, or respiratory therapy, and documentation in the medical record.
[2017-11-21 04:27] LABS: Baso % (Auto) 0.5 % (0.0-2.0); Eos # (Auto) 0.2 th/mm3 (0.0-0.4); Eos % (Auto) 4.3 % (0.0-4.0); Hematocrit 42.8 % (39.0-51.0); Hemoglobin 14.1 gm/dL (13.0-17.0); Lymph # (Auto) 0.3 th/mm3 (1.0-4.8); Lymph % (Auto) 6.4 % (9.0-44.0); Mean Corpuscular HGB Conc 32.8 % (32.0-36.0); Mean Corpuscular Hemoglobin 29.1 pg (27.0-34.0); Mean Corpuscular Volume 88.6 fL (80.0-100.0); Mean Platelet Volume 9.2 fL (7.0-11.0); Mono # (Auto) 0.2 th/mm3 (0.0-0.9); Mono % (Auto) 5.1 % (0.0-8.0); Neut # (Auto) 3.4 th/mm3 (1.8-7.7); Neut % (Auto) 83.7 % (16.0-70.0); Platelet Count 73 th/mm3 (150-450); Red Blood Count 4.83 mil/mm3 (4.50-5.90); Red Cell Distribution Width 16.8 % (11.6-17.2); White Blood Count 4.1 th/mm3 (4.0-11.0)
[2017-11-21 04:46] LABS: Alanine Aminotransferase 100 U/L (12-78); Albumin 2.5 g/dL (3.4-5.0); Alkaline Phosphatase 54 U/L (45-117); Anion Gap 7 meq/L (5-15); Aspartate Aminotransferase 183 U/L (15-37); Blood Urea Nitrogen 31 mg/dL (7-18); Calcium 8.2 mg/dL (8.5-10.1); Carbon Dioxide 29.9 meq/L (21.0-32.0); Chloride 106 meq/L (98-107); Glomerular Filtration Rate 52 mL/min (>89); Glucose,Random 101 mg/dL (74-106); Magnesium 1.8 mg/dL (1.5-2.5); Phosphorus 1.5 mg/dL (2.5-4.9); Sodium 143 meq/L (136-145); Total Protein 6.4 g/dL (6.4-8.2)
[2017-11-21 04:56] LABS: Potassium 2.9 meq/L (3.5-5.1)
[2017-11-21] MEDS: Milrinone Inj 20 MG in Sodium Chlor 0.9% Inj 80 ML IV.CONT SCH ×2 (05:08→17:03)
[2017-11-21] MEDS: Chlorhexidine Gluconate 2% 1 Pack (2 Cloths) TOPICAL SCH (05:09)
[2017-11-21] MEDS: Midazolam 50 MG/50 ML Inj 50 MG/50 ML BAG IV.CONT PRN ×3 (05:10→22:24)
[2017-11-21] MEDS: Heparin - SQ 10,000 UNITS/ML Vial SQ SCH ×3 (05:10→22:23)
[2017-11-21] MEDS: Famotidine PF Inj 20 MG/2 ML Vial IV.PUSH SCH (09:23)
[2017-11-21] MEDS: Morphine Inj 4 MG/ML Vial IV.PUSH PRN (11:12)
[2017-11-21] MEDS: Senna/Docusate Sodium 8.6/50 MG Tablet PO SCH ×2 (11:13→22:23)
--- NOTE | 2017-11-21 12:02 | P.PNNP ---
Subjective Interval history: Intubated on sedation. Hemodialysis yesterday with removal of 2 liters of fluid. <Karine Trucios - Last Filed: 11/21/17 12:02> Physical Exam Vital signs: Vital Signs 11/20/17 13:00 11/20/17 14:00 11/20/17 15:00 Temperature Pulse Rate 82 78 75 Respiratory Rate 16 16 Blood Pressure Pulse Oximetry 100 100 100 11/20/17 16:00 11/20/17 16:17 11/20/17 17:00 Temperature 97.4 F L Pulse Rate 83 84 Respiratory Rate 16 Blood Pressure 127/75 Pulse Oximetry 96 97 98 11/20/17 18:00 11/20/17 19:00 11/20/17 19:48 Temperature Pulse Rate 87 90 93 H Respiratory Rate 16 16 16 Blood Pressure 124/90 Pulse Oximetry 100 100 100 11/20/17 20:00 11/20/17 20:44 11/20/17 21:00 Temperature 97.4 F L Pulse Rate 95 H 87 Respiratory Rate 16 16 16 Blood Pressure 154/88 H 145/94 H Pulse Oximetry 100 100 99 11/20/17 22:00 11/20/17 22:01 11/20/17 23:00 Temperature Pulse Rate 79 79 102 H Respiratory Rate 16 16 16 Blood Pressure 121/57 L Pulse Oximetry 99 99 98 11/20/17 23:06 11/20/17 23:57 11/21/17 00:00 Temperature 97.4 F L Pulse Rate 99 H 79 Respiratory Rate 18 16 16 Blood Pressure 69/46 L 98/52 L Pulse Oximetry 100 99 99 11/21/17 00:03 11/21/17 00:52 11/21/17 01:00 Temperature Pulse Rate 78 72 72 Respiratory Rate 16 16 16 Blood Pressure 107/77 95/71 L Pulse Oximetry 98 98 98 11/21/17 01:01 11/21/17 02:00 11/21/17 03:00 Temperature Pulse Rate 73 69 68 Respiratory Rate 16 16 16 Blood Pressure 111/68 111/69 Pulse Oximetry 98 99 100 11/21/17 03:01 11/21/17 04:00 11/21/17 04:14 Temperature 97.6 F Pulse Rate 68 71 74 Respiratory Rate 16 16 16 Blood Pressure 114/67 95/61 L 127/78 Pulse Oximetry 100 100 100 11/21/17 04:31 11/21/17 05:01 11/21/17 06:00 Temperature Pulse Rate 92 H 80 Respiratory Rate 16 12 16 Blood Pressure 131/98 H 105/79 Pulse Oximetry 100 100 99 11/21/17 07:06 11/21/17 08:00 11/21/17 08:04 Temperature Pulse Rate 87 102 H Respiratory Rate 16 19 20 Blood Pressure 124/87 158/97 H Pulse Oximetry 99 98 98 11/21/17 09:00 11/21/17 09:25 11/21/17 09:29 Temperature 97.9 F Pulse Rate 111 H 114 H 125 H Respiratory Rate 21 22 24 Blood Pressure 162/105 H 160/103 H 168/118 H Pulse Oximetry 98 98 99 11/21/17 10:00 Temperature Pulse Rate 116 H Respiratory Rate 21 Blood Pressure 154/105 H Pulse Oximetry 99 Intake & Output 11/20/17 11/21/17 11/21/17 18:59 06:59 18:59 Intake Total 630 / 630 200 / 200 50 / 50 Output Total 2650 / 2650 500 / 500 Balance -2020 / -2020 -300 / -300 50 / 50 Weight 67 kg Intake: IV 630 / 630 200 / 200 50 / 50 EPINEPHrine (1:1000) Inj 4 MG 79 / 79 In D5W Inj 246 ML @ 10 MCG/MIN 37.5 mls/hr IV.CONT TITRATE PRN Rx#:[id number] Versed Inj 50 mg In 50 ml @ 2 150 / 150 100 / 100 50 / 50 MG/HR 2 mls/hr IV.CONT TITRATE PRN Rx#:[id number] Primacor Inj 20 MG In NS Inj 80 100 / 100 100 / 100 ML @ 0.5 MCG/KG/MIN 10.5 mls/ hr IV.CONT .Q9H32M [facility] Rx#: [id number] Cardene Inj 25 MG In NS Inj 240 51 / 51 ML @ 5 MG/HR 50 mls/hr IV.CONT TITRATE PRN Rx#:[id number] Flexbumin 25% Inj 100 ML @ 60 200 / 200 mls/hr IV.SIG WITH DIALYSIS PRN Rx#:[id number] Output: Stool 200 / 200 300 / 300 Hemodialysis Amount 1999 / 1999 Urine Amount (Catheter) 450 / 450 200 / 200 Indwelling Urethral Catheter 450 / 450 200 / 200 Other: Date of Last Bowel Movement 11/20/17 11/20/17 Narrative: GENERAL: Intubated and sedated SKIN: Warm and dry. HEAD: Normocephalic. EYES: No scleral icterus. No injection or drainage. NECK: Supple, trachea midline. No JVD or lymphadenopathy. CARDIOVASCULAR: Regular rate and rhythm without murmurs, gallops, or rubs. RESPIRATORY: Breath sounds decreased bilaterally. No accessory muscle use. Intubated GASTROINTESTINAL: Abdomen soft, non-tender, large. OG tube GENITOURINARY: Indwelling Smith catheter, small amount of dark colored urine MUSCULOSKELETAL: No cyanosis, Mild generalized edema. - Urinary Catheter Management Indwelling Urethral Catheter Cath placed during this visit: yes Reason for continuing: Hourly intake/output Insertion date: 11/19/17 Insertion time: 06:43 <Karine Turcios - Last Filed: 11/21/17 12:02> Vital signs: Vital Signs 11/20/17 19:48 11/20/17 20:00 11/20/17 20:44 Temperature 97.4 F L Pulse Rate 93 H 95 H Respiratory Rate 16 16 16 Blood Pressure 124/90 154/88 H Pulse Oximetry 100 100 100 11/20/17 21:00 11/20/17 22:00 11/20/17 22:01 Temperature Pulse Rate 87 79 79 Respiratory Rate 16 16 16 Blood Pressure 145/94 H 121/57 L Pulse Oximetry 99 99 99 11/20/17 23:00 11/20/17 23:06 11/20/17 23:57 Temperature Pulse Rate 102 H 99 H Respiratory Rate 16 18 16 Blood Pressure 69/46 L Pulse Oximetry 98 100 99 11/21/17 00:00 11/21/17 00:03 11/21/17 00:52 Temperature 97.4 F L Pulse Rate 79 78 72 Respiratory Rate 16 16 16 Blood Pressure 98/52 L 107/77 95/71 L Pulse Oximetry 99 98 98 11/21/17 01:00 11/21/17 01:01 11/21/17 02:00 Temperature Pulse Rate 72 73 69 Respiratory Rate 16 16 16 Blood Pressure 111/68 111/69 Pulse Oximetry 98 98 99 11/21/17 03:00 11/21/17 03:01 11/21/17 04:00 Temperature 97.6 F Pulse Rate 68 68 71 Respiratory Rate 16 16 16 Blood Pressure 114/67 95/61 L Pulse Oximetry 100 100 100 11/21/17 04:14 11/21/17 04:31 11/21/17 05:01 Temperature Pulse Rate 74 92 H Respiratory Rate 16 16 12 Blood Pressure 127/78 131/98 H Pulse Oximetry 100 100 100 11/21/17 06:00 11/21/17 07:06 11/21/17 08:00 Temperature Pulse Rate 80 87 91 H Respiratory Rate 16 16 19 Blood Pressure 105/79 124/87 154/105 H Pulse Oximetry 99 99 100 11/21/17 08:04 11/21/17 09:00 11/21/17 09:25 Temperature 97.9 F Pulse Rate 111 H 114 H Respiratory Rate 20 21 22 Blood Pressure 162/105 H 160/103 H Pulse Oximetry 98 98 98 11/21/17 09:29 11/21/17 10:00 11/21/17 10:18 Temperature Pulse Rate 125 H 116 H 117 H Respiratory Rate 24 21 19 Blood Pressure 168/118 H 154/105 H 158/102 H Pulse Oximetry 99 99 99 11/21/17 11:00 11/21/17 11:59 11/21/17 12:00 Temperature 101.1 F H Pulse Rate 119 H 106 H Respiratory Rate 20 17 16 Blood Pressure 142/109 H 137/110 H Pulse Oximetry 97 100 98 11/21/17 13:00 11/21/17 15:30 11/21/17 15:57 Temperature Pulse Rate 103 H 106 H Respiratory Rate 16 16 17 Blood Pressure 142/73 H Pulse Oximetry 97 99 11/21/17 15:58 11/21/17 15:59 11/21/17 16:00 Temperature 101.3 F H Pulse Rate 105 H 105 H 105 H Respiratory Rate 16 17 18 Blood Pressure 118/75 Pulse Oximetry 99 99 99 11/21/17 16:01 11/21/17 16:02 11/21/17 16:03 Temperature Pulse Rate 105 H 105 H 106 H Respiratory Rate 17 17 17 Blood Pressure Pulse Oximetry 98 98 98 11/21/17 16:04 11/21/17 16:05 11/21/17 16:06 Temperature Pulse Rate 104 H 104 H 104 H Respiratory Rate 17 17 16 Blood Pressure Pulse Oximetry 97 97 97 11/21/17 16:07 11/21/17 16:08 11/21/17 16:09 Temperature Pulse Rate 105 H 105 H 105 H Respiratory Rate 16 16 16 Blood Pressure Pulse Oximetry 97 97 97 11/21/17 16:10 11/21/17 16:11 11/21/17 16:12 Temperature Pulse Rate 106 H 105 H 104 H Respiratory Rate 16 17 17 Blood Pressure Pulse Oximetry 97 97 98 11/21/17 16:13 11/21/17 16:14 11/21/17 16:15 Temperature Pulse Rate 104 H 104 H 104 H Respiratory Rate 16 16 16 Blood Pressure Pulse Oximetry 97 97 98 11/21/17 16:16 11/21/17 16:17 11/21/17 16:18 Temperature Pulse Rate 104 H 104 H 104 H Respiratory Rate 16 16 16 Blood Pressure Pulse Oximetry 98 98 98 11/21/17 16:19 11/21/17 16:20 11/21/17 16:21 Temperature Pulse Rate 104 H 104 H 104 H Respiratory Rate 16 16 16 Blood Pressure Pulse Oximetry 98 98 98 11/21/17 16:22 11/21/17 16:23 11/21/17 16:24 Temperature Pulse Rate 104 H 104 H 104 H Respiratory Rate 16 16 16 Blood Pressure Pulse Oximetry 98 98 98 11/21/17 16:25 11/21/17 16:26 11/21/17 16:27 Temperature Pulse Rate 103 H 104 H 104 H Respiratory Rate 16 16 16 Blood Pressure Pulse Oximetry 98 98 98 11/21/17 16:28 11/21/17 16:29 11/21/17 16:30 Temperature Pulse Rate 104 H 104 H 104 H Respiratory Rate 16 16 16 Blood Pressure Pulse Oximetry 98 98 98 11/21/17 16:31 11/21/17 16:32 11/21/17 16:33 Temperature Pulse Rate 104 H 104 H 104 H Respiratory Rate 16 16 16 Blood Pressure Pulse Oximetry 98 99 98 11/21/17 16:34 11/21/17 16:35 11/21/17 16:36 Temperature Pulse Rate 103 H 103 H 104 H Respiratory Rate 16 16 16 Blood Pressure Pulse Oximetry 98 98 98 11/21/17 16:37 11/21/17 16:38 11/21/17 16:39 Temperature Pulse Rate 104 H 104 H 104 H Respiratory Rate 16 16 16 Blood Pressure Pulse Oximetry 99 98 98 11/21/17 16:40 08/02/18 16:41 11/21/17 16:42 Temperature Pulse Rate 104 H 104 H 104 H Respiratory Rate 16 16 16 Blood Pressure Pulse Oximetry 98 98 98 11/21/17 16:43 11/21/17 16:44 11/21/17 16:45 Temperature Pulse Rate 104 H 103 H 103 H Respiratory Rate 16 16 16 Blood Pressure Pulse Oximetry 99 99 99 Intake & Output 11/21/17 11/21/17 11/22/17 06:59 18:59 06:59 Intake Total 200 / 200 450 / 450 Output Total 500 / 500 450 / 450 Balance -300 / -300 0 / 0 Weight 67 kg Intake: IV 200 / 200 450 / 450 Versed Inj 50 mg In 50 ml @ 2 100 / 100 50 / 50 MG/HR 2 mls/hr IV.CONT TITRATE PRN Rx#:[id number] Primacor Inj 20 MG In NS Inj 80 100 / 100 100 / 100 ML @ 0.5 MCG/KG/MIN 10.5 mls/ hr IV.CONT .Q9H32M [facility] Rx#: [id number] KCl 10 mEq Premix Inj 10 meq In 300 / 300 100 ml @ 100 mls/hr IV.SIG Q1H [facility] Rx#:[id number] Oral 0 / 0 Tube Feeding 0 / 0 Output: Stool 300 / 300 Urine Amount (Catheter) 200 / 200 450 / 450 Indwelling Urethral Catheter 200 / 200 450 / 450 Other: Date of Last Bowel Movement 11/20/17 11/21/17 # Bowel Movements 1 - Urinary Catheter Management Indwelling Urethral Catheter Cath placed during this visit: no <Sumanth Cha - Last Filed: 11/21/17 19:13> Assessment and Plan - Assessment (1) Acute on chronic renal failure Code(s): N17.9 - Acute kidney failure, unspecified; N18.9 - Chronic kidney disease, unspecified Status: Acute Qualifiers: Acute renal failure type: unspecified Chronic kidney disease stage: unspecified stage Qualified Code(s): N17.9 - Acute kidney failure, unspecified ; N18.9 - Chronic kidney disease, unspecified Plan: Acute renal failure with a creatinine of 2.41 and potassium level of 7.0, with treatment repeat potassium level at 6.8 on day of consult. CHRISTINA most likely ATN with FeNa of 2.87 and urine osmolarity of 3.09 from possible cardiogenic shock and hypotension CT of abdomen with kidneys normal in size and shape. No evidence of mass or hydronephrosis. Creatinine on 07/18 at 0.89. Creatinine at 1.66 and urinary output of 650 ml /24 hours Complements are low and RACHID is positive will order anti DNA DS ANCA are pending Hemodialysis initiated yesterday 12/20 for resistant hyperkalemia and anasarca Hypokalemia at 2.9 will order replacement Phosphorus low replacement ordered Hemodialysis yesterday with removal of 2 liters. Avoid nephrotoxins including NSAIDS, aminoglycosides, and IV contrast Next hemodialysis is planned for Saturday will assess need prior to dialysis. <Karine Turcios - Last Filed: 11/21/17 12:02> - Assessment (1) Acute on chronic renal failure Code(s): N17.9 - Acute kidney failure, unspecified; N18.9 - Chronic kidney disease, unspecified Status: Acute Qualifiers: Acute renal failure type: unspecified Chronic kidney disease stage: unspecified stage Qualified Code(s): N17.9 - Acute kidney failure, unspecified ; N18.9 - Chronic kidney disease, unspecified - Attending Attestation Patient seen and examine, agree with above. RACHID is positive and Complements low, Anti DNA ordered, Hold HD for now, watch renal function and urine out put. <Sumanth Cha - Last Filed: 11/21/17 19:13>
[2017-11-21] MEDS ORDERED: Potassium Chlor 40 mEq Premix 40 MEQ/100 ML PIGGYBACK IV.SIG ONE (12:08)
--- NOTE | 2017-11-21 12:18 | P.PNCC ---
Subjective Subjective Remarks/Hospital Course: 11/19: This is a 57yM with history of cardiomyopathy and an EF 20% who recently underwent mitral valve repair for severe MR. At that time, he had a preserved LVEF. However, he continued to use illicit cocaine, and on subsequent hospital admissions, his EF had fallen to 20%. He represents today with altered mental status, endorsing cocaine use. On further evaluation, he has a potassium of 7, Cr 2.4, AST/ALT 200/72, CK 1302, BNP 4307, co2 14. On my evaluation he is obtunded and agonally breathing, intermittently tachypneic. I performed bedside critical care echo which demonstrated a severe biventricular dysfunction and an EF < 10%. there was spontaneous echo contrast in the LV and the aortic valve appeared to open only minimally due to low-flow. Patient is grossly anasarcic with 3+ edema bilaterally up to the abdomen. he has JVD above the level of the mandible. I emergently intubated the patient (see separate procedure note for details). I emergently placed arterial, central lines, and dialysis catheter. potassium did not improve with medical therapy. we consulted nephrology for emergent HD. I also placed the patient on epinephrine drip for cardiogenic shock. due to the patient's mental status and clinical status, no additional information is available from him. ROS unobtainable. 11/20: Remains sedated, orally intubated on mechanical ventilation. Dialyzed this morning. Remains on pressors. 11/21: Remains sedated, orally intubated on mechanical ventilation. Hypothermic this morning. Objective Vital Signs / I&O: Vital Signs 11/20/17 13:00 11/20/17 14:00 11/20/17 15:00 Temperature Pulse Rate 82 78 75 Respiratory Rate 16 16 Blood Pressure Pulse Oximetry 100 100 100 11/20/17 16:00 11/20/17 16:17 11/20/17 17:00 Temperature 97.4 F L Pulse Rate 83 84 Respiratory Rate 16 Blood Pressure 127/75 Pulse Oximetry 96 97 98 11/20/17 18:00 11/20/17 19:00 11/20/17 19:48 Temperature Pulse Rate 87 90 93 H Respiratory Rate 16 16 16 Blood Pressure 124/90 Pulse Oximetry 100 100 100 11/20/17 20:00 11/20/17 20:44 11/20/17 21:00 Temperature 97.4 F L Pulse Rate 95 H 87 Respiratory Rate 16 16 16 Blood Pressure 154/88 H 145/94 H Pulse Oximetry 100 100 99 11/20/17 22:00 11/20/17 22:01 11/20/17 23:00 Temperature Pulse Rate 79 79 102 H Respiratory Rate 16 16 16 Blood Pressure 121/57 L Pulse Oximetry 99 99 98 11/20/17 23:06 11/20/17 23:57 11/21/17 00:00 Temperature 97.4 F L Pulse Rate 99 H 79 Respiratory Rate 18 16 16 Blood Pressure 69/46 L 98/52 L Pulse Oximetry 100 99 99 11/21/17 00:03 11/21/17 00:52 11/21/17 01:00 Temperature Pulse Rate 78 72 72 Respiratory Rate 16 16 16 Blood Pressure 107/77 95/71 L Pulse Oximetry 98 98 98 11/21/17 01:01 11/21/17 02:00 11/21/17 03:00 Temperature Pulse Rate 73 69 68 Respiratory Rate 16 16 16 Blood Pressure 111/68 111/69 Pulse Oximetry 98 99 100 11/21/17 03:01 11/21/17 04:00 11/21/17 04:14 Temperature 97.6 F Pulse Rate 68 71 74 Respiratory Rate 16 16 16 Blood Pressure 114/67 95/61 L 127/78 Pulse Oximetry 100 100 100 11/21/17 04:31 11/21/17 05:01 11/21/17 06:00 Temperature Pulse Rate 92 H 80 Respiratory Rate 16 12 16 Blood Pressure 131/98 H 105/79 Pulse Oximetry 100 100 99 11/21/17 07:06 11/21/17 08:00 11/21/17 08:04 Temperature Pulse Rate 87 91 H Respiratory Rate 16 19 20 Blood Pressure 124/87 154/105 H Pulse Oximetry 99 100 98 11/21/17 09:00 11/21/17 09:25 11/21/17 09:29 Temperature 97.9 F Pulse Rate 111 H 114 H 125 H Respiratory Rate 21 22 24 Blood Pressure 162/105 H 160/103 H 168/118 H Pulse Oximetry 98 98 99 11/21/17 10:00 11/21/17 11:59 Temperature Pulse Rate 116 H Respiratory Rate 21 17 Blood Pressure 154/105 H Pulse Oximetry 99 100 Intake & Output 11/20/17 11/21/17 11/21/17 18:59 06:59 18:59 Intake Total 630 / 630 200 / 200 50 / 50 Output Total 2650 / 2650 500 / 500 Balance -2020 / -2020 -300 / -300 50 / 50 Weight 67 kg Intake: IV 630 / 630 200 / 200 50 / 50 EPINEPHrine (1:1000) Inj 4 MG 79 / 79 In D5W Inj 246 ML @ 10 MCG/MIN 37.5 mls/hr IV.CONT TITRATE PRN Rx#:[id number] Versed Inj 50 mg In 50 ml @ 2 150 / 150 100 / 100 50 / 50 MG/HR 2 mls/hr IV.CONT TITRATE PRN Rx#:[id number] Primacor Inj 20 MG In NS Inj 80 100 / 100 100 / 100 ML @ 0.5 MCG/KG/MIN 10.5 mls/ hr IV.CONT .Q9H32M [facility] Rx#: [id number] Cardene Inj 25 MG In NS Inj 240 51 / 51 ML @ 5 MG/HR 50 mls/hr IV.CONT TITRATE PRN Rx#:[id number] Flexbumin 25% Inj 100 ML @ 60 200 / 200 mls/hr IV.SIG WITH DIALYSIS PRN Rx#:[id number] Output: Stool 200 / 200 300 / 300 Hemodialysis Amount 1999 / 1999 Urine Amount (Catheter) 450 / 450 200 / 200 Indwelling Urethral Catheter 450 / 450 200 / 200 Other: Date of Last Bowel Movement 11/20/17 11/20/17 Result Diagrams: 11/21/17 03:54 11/21/17 03:54 Objective Remarks: HEENT/ Neuro: Sedated, orally intubated, Pallor present, no icterus, tongue/ mucosa moist Neck: No JVD Chest/Pulm: on mech vent, good air entry bilaterally, no wheezing or crackles CVS: S1-S2 regular, no murmur GI/abdomen: soft, nontender, bowel sounds sluggish Extremities: Cool bilaterally, no edema Assessment and Plan - Assessment and Plan Plan: Assessment: 57yM with severe cardiomyopathy and ongoing cocaine abuse who presents in severe cardiogenic shock combined with active cocaine intoxication. Very critically ill, in extremis, in multiorgan failure. Overall, this is a patient whose cocaine use has complicated his cardiac problems to the point that this is now likely an end-stage process. will consult palliative care to assist the family, but this may be a fatal hospitalization for him due to his ongoing cocaine abuse and now multiorgan failure. Plan by systems: Neurologic: Acute toxic encephalopathy Acute cocaine intoxication Acute metabolic encephalopathy secondary to shock Sedation while intubated with daily sedation vacation. Versed infusion for goal RASS -2 Respiratory: Acute hypoxic and hypercarbic respiratory failure Acute severe pulmonary edema Probable Crack Lung Vent bundle Head of bed elevated Nebs Wean FiO2 for goal SPO2 greater than 90% Asymmetric pulmonary consolidation pattern is consistent with chronic crack cocaine use No SBT today given active shock dialysis for volume overload and pulmonary edema Cardiovascular: Cardiogenic shock Acute severe systolic congestive heart failure exacerbation Acute type II non-ST elevation myocardial infarction secondary to demand ischemia known prior EF 20% (09/2017), now bedside echo appears to be acutely < 10% likely secondary to chronic cocaine use superimposed on cardiomyopathy. emergent HD for fluid removal and preload optimization milrinone to assist with cardiac output. Off levophed and epinephrine drips. trend cvp trend lactates watch uop Renal: Acute kidney injury Most likely secondary to cardiogenic shock Smith has been placed Every hour urine outputs Emergent HD Nephrology consult -- Strict I/Os FEN/GI: Severe life-threatening hyperkalemia Severe intravascular volume overload Severe acute protein calorie malnutrition Lactic acidosis Severe anion gap metabolic acidosis N.p.o. while in shock Nephrology consulted with emergent dialysis Trend daily BMP, mag, phosphorus 2 A of bicarb IV 1 Now hypokalemic. K-Phos ordered on 11/21. Hemodialysis per renal. Heme/ID: Daily CBC No infectious etiology suspected this time Patient has severe diarrhea which is most likely ischemic colitis secondary to severe cardiogenic shock Endocrine: Acute hypoglycemia, severe D10W at 30 miles an hour Frequent glycemic checks -- SSI Prophylaxis: GI Prophylaxis Pepcid IV DVT Prophylaxis -- SCDs Subcu heparin Lines: 11/19 right brachial arterial line 11/19 right subclavian 7 Ukrainian triple-lumen catheter 11/19 right IJ 14 Ukrainian 20 cm dialysis catheter 11/19 Smith Prognosis appears poor. Palliative care following to assist with deciding goals of therapy. This patient remains critically ill with one or more organ systems which are or may become a threat to life. I have spent in excess of 35 minutes discontinuously in the care and management of this patient. This time is exclusive of procedures, and includes, but is not limited to, evaluation of the patient, review of the medical record, discussions with family, consultants, nursing staff, or respiratory therapy, and documentation in the medical record.
--- NOTE | 2017-11-21 12:19 | P.PNPAL ---
Reason for Visit Reason for visit: a. To assist with evaluation and management of symptoms including: Altered mental status, edema b. To assist medical decision maker(s) with: better understanding of current medical conditions; weighing benefits/burdens of medical treatment options; making medical treatment decisions. Subjective Subjective/Interval History: Patient seen today to evaluate symptom management of altered mental status, edema. Edema is improving after hemodialysis, last done yesterday with removal of 2000 mL. He continued to have urine output, totaling 650 over the last 24 hours. His weight has declined from 154.5 pounds upon admission to 147.11 pounds today. He was significantly hyperkalemic on admission with a potassium level of 7.0, 2.9 today after dialysis. Creatinine has improved from 2.07-1.66 mg/ dL. Urine output is small this morning, dark red, draining to Smith catheter bag. Altered mental status is difficult to assess at this time due to continued intubation and sedation. He is on light sedation and not responsive to strong stimuli, however yesterday, when sedation was turned off, he became agitated, but not following commands. His clinical status is fragile and he was mildly hypothermic this morning with a temperature of 97.4F, requiring Shanon hugger use. He remains on a small amount of milrinone for inotropic support. Levophed has been weaned off. He remains intubated and sedated. Telemetry reveals frequent self-limiting arrhythmias to include wide complex tachyarrhythmias, frequent multifocal PVCs, accelerated junctional and PAT. . Family/Friend Interactions: Plan for family meeting with patient's mother and sister, Kaylie, 11/22 at 11 AM for further discussion of goals of care. Objective Vital Signs: Vital Signs 11/20/17 13:00 11/20/17 14:00 11/20/17 15:00 Temperature Pulse Rate 82 78 75 Respiratory Rate 16 16 Blood Pressure Pulse Oximetry 100 100 100 11/20/17 16:00 11/20/17 16:17 11/20/17 17:00 Temperature 97.4 F L Pulse Rate 83 84 Respiratory Rate 16 Blood Pressure 127/75 Pulse Oximetry 96 97 98 11/20/17 18:00 11/20/17 19:00 11/20/17 19:48 Temperature Pulse Rate 87 90 93 H Respiratory Rate 16 16 16 Blood Pressure 124/90 Pulse Oximetry 100 100 100 11/20/17 20:00 11/20/17 20:44 11/20/17 21:00 Temperature 97.4 F L Pulse Rate 95 H 87 Respiratory Rate 16 16 16 Blood Pressure 154/88 H 145/94 H Pulse Oximetry 100 100 99 11/20/17 22:00 11/20/17 22:01 11/20/17 23:00 Temperature Pulse Rate 79 79 102 H Respiratory Rate 16 16 16 Blood Pressure 121/57 L Pulse Oximetry 99 99 98 11/20/17 23:06 11/20/17 23:57 11/21/17 00:00 Temperature 97.4 F L Pulse Rate 99 H 79 Respiratory Rate 18 16 16 Blood Pressure 69/46 L 98/52 L Pulse Oximetry 100 99 99 11/21/17 00:03 11/21/17 00:52 11/21/17 01:00 Temperature Pulse Rate 78 72 72 Respiratory Rate 16 16 16 Blood Pressure 107/77 95/71 L Pulse Oximetry 98 98 98 11/21/17 01:01 11/21/17 02:00 11/21/17 03:00 Temperature Pulse Rate 73 69 68 Respiratory Rate 16 16 16 Blood Pressure 111/68 111/69 Pulse Oximetry 98 99 100 11/21/17 03:01 11/21/17 04:00 11/21/17 04:14 Temperature 97.6 F Pulse Rate 68 71 74 Respiratory Rate 16 16 16 Blood Pressure 114/67 95/61 L 127/78 Pulse Oximetry 100 100 100 11/21/17 04:31 11/21/17 05:01 11/21/17 06:00 Temperature Pulse Rate 92 H 80 Respiratory Rate 16 12 16 Blood Pressure 131/98 H 105/79 Pulse Oximetry 100 100 99 11/21/17 07:06 11/21/17 08:00 11/21/17 08:04 Temperature Pulse Rate 87 116 H Respiratory Rate 16 19 20 Blood Pressure 124/87 154/105 H Pulse Oximetry 99 100 98 11/21/17 09:00 11/21/17 09:25 11/21/17 09:29 Temperature 97.9 F Pulse Rate 111 H 114 H 125 H Respiratory Rate 21 22 24 Blood Pressure 162/105 H 160/103 H 168/118 H Pulse Oximetry 98 98 99 11/21/17 10:00 11/21/17 11:59 Temperature Pulse Rate 116 H Respiratory Rate 21 17 Blood Pressure 154/105 H Pulse Oximetry 99 100 Intake & Output 11/20/17 11/21/17 11/21/17 18:59 06:59 18:59 Intake Total 630 / 630 200 / 200 50 / 50 Output Total 2650 / 2650 500 / 500 Balance -2020 / -2020 -300 / -300 50 / 50 Weight 147 lb 11.355 oz Intake: IV 630 / 630 200 / 200 50 / 50 EPINEPHrine (1:1000) Inj 4 MG 79 / 79 In D5W Inj 246 ML @ 10 MCG/MIN 37.5 mls/hr IV.CONT TITRATE PRN Rx#:[id number] Versed Inj 50 mg In 50 ml @ 2 150 / 150 100 / 100 50 / 50 MG/HR 2 mls/hr IV.CONT TITRATE PRN Rx#:[id number] Primacor Inj 20 MG In NS Inj 80 100 / 100 100 / 100 ML @ 0.5 MCG/KG/MIN 10.5 mls/ hr IV.CONT .[id number] [facility] Rx#: [id number] Cardene Inj 25 MG In NS Inj 240 51 / 51 ML @ 5 MG/HR 50 mls/hr IV.CONT TITRATE PRN Rx#:[id number] Flexbumin 25% Inj 100 ML @ 60 200 / 200 mls/hr IV.SIG WITH DIALYSIS PRN Rx#:[id number] Output: Stool 200 / 200 300 / 300 Hemodialysis Amount 1999 / 1999 Urine Amount (Catheter) 450 / 450 200 / 200 Indwelling Urethral Catheter 450 / 450 200 / 200 Other: Date of Last Bowel Movement 11/20/17 11/20/17 Physical Exam: CONSTITUTIONAL/GENERAL: This is an adequately nourished patient, intubated, sedated, in no apparent distress. TUBES/LINES/DRAINS: Right IJ Vas-Cath, right subclavian central line, right radial arterial line, ETT, Smith. SKIN: No jaundice, rashes, or lesions. No wounds seen anteriorly. Skin temperature appropriate. Not diaphoretic. HEAD: Atraumatic. Normocephalic. EYES: Pupils equal and round and sluggishly reactive. No scleral icterus. No injection or drainage. Fundi not examined. ENT: Nose without bleeding or purulent drainage. Orally intubated. NECK: Trachea midline. Supple, nontender. No palpable thyroid enlargement or nodularity. Moderate JVD. CARDIOVASCULAR: S1, S2. Irregular rhythm, controlled rate without gallops, or rubs. Soft 1/6 systolic ejection murmur. No JVD. Peripheral pulses symmetric. RESPIRATORY/CHEST: Symmetric, unlabored respirations. Clear, diminished to auscultation. Breath sounds equal bilaterally. No wheezes, rales, or rhonchi. GASTROINTESTINAL: Abdomen soft, nondistended. No hepato-splenomegaly, or palpable masses. Bowel sounds hypoactive. GENITOURINARY: Without palpable bladder distension. Smith catheter in place draining dark red urine in small quantities. MUSCULOSKELETAL: Extremities without clubbing or cyanosis, 1+ edema. No joint tenderness or effusion noted. No mottling or clubbing. LYMPHATICS: No palpable cervical or supraclavicular adenopathy. NEUROLOGICAL: Sedated. PSYCHIATRIC: Sedated. . Diagnostic Tests Laboratory: Laboratory Results - last 72 hr 11/19/17 11/19/17 11/19/17 03:45 04:15 04:15 WBC 3.8 L RBC 5.74 Hgb 16.7 Hct 53.1 H MCV 92.5 MCH 29.0 MCHC 31.3 L RDW 18.5 H Plt Count 92 L D MPV 10.5 Prelim Diff (Auto) Slide review pending Neut % (Auto) 76.3 H Lymph % (Auto) 16.0 [place] % (Auto) 6.0 Eos % (Auto) 0.8 Baso % (Auto) 0.9 Neut # (Auto) 2.9 Lymph # (Auto) 0.6 L [place] # (Auto) 0.2 Eos # (Auto) 0.0 Baso # (Auto) 0.0 WBC Differential . Seg Neuts % (Manual) Band Neuts % (Manual) Lymphocytes % (Manual) Monocytes % (Manual) Abs Neuts (Manual) Differential Comment . Platelet Estimate Low L Platelet Morphology Enlarged H Ovalocytes Acanthocytes (Spur) PT 16.4 H INR 1.6 APTT 28.7 Puncture Site Patient Temperature O2 Saturation ABG pH ABG pCO2 ABG pO2 ABG HCO3 ABG O2 Content ABG Base Excess ABG Methemoglobin Hemoglobin Carboxyhemoglobin O2 Delivery Device Liter Flow Vent Setting Inspired O2 Critical Value Sodium Potassium Chloride Carbon Dioxide Anion Gap BUN Creatinine Estimated GFR POC Glucose 93 Random Glucose Lactic Acid Calcium Phosphorus Magnesium Total Bilirubin AST ALT Alkaline Phosphatase Total Creatine Kinase CK-MB (CK-2) CK-MB (CK-2) % Troponin I B-Natriuretic Peptide Total Protein Albumin Lipase Cortisol Urine Color Urine Clarity Urine pH Ur Specific [place] Urine Protein Urine Glucose (UA) Urine Ketones Urine Occult Blood Urine Nitrate Urine Bilirubin Urine Urobilinogen Ur Leukocyte Esterase Urine RBC Urine WBC Ur Squamous Epith Cells Amorphous Sediment Urine Bacteria Hyaline Casts Urine Mucus Micro UA Comment Urine Culture Comments Urine Osmolality Ur Random Creatinine Ur Random Sodium Nasal Screen MRSA (PCR) Stl C.difficile Tox PCR St C. diff Tox Epid 027 Urine Opiates Screen Ur Barbiturates Screen Ur Amphetamines Screen U Benzodiazepines Scrn Urine Cocaine Screen U Cannabinoids Screen Serum Alcohol RACHID Screen Complement C3 Complement C4 Hepatitis A IgM Ab Hep Bs Antigen Hep B Core IgM Ab Hep C IgG Ab 11/19/17 11/19/17 11/19/17 04:15 04:15 06:00 WBC RBC Hgb Hct MCV MCH MCHC RDW Plt Count MPV Prelim Diff (Auto) Neut % (Auto) Lymph % (Auto) [place] % (Auto) Eos % (Auto) Baso % (Auto) Neut # (Auto) Lymph # (Auto) [place] # (Auto) Eos # (Auto) Baso # (Auto) WBC Differential Seg Neuts % (Manual) Band Neuts % (Manual) Lymphocytes % (Manual) Monocytes % (Manual) Abs Neuts (Manual) Differential Comment Platelet Estimate Platelet Morphology Ovalocytes Acanthocytes (Spur) PT INR APTT Puncture Site Patient Temperature O2 Saturation ABG pH ABG pCO2 ABG pO2 ABG HCO3 ABG O2 Content ABG Base Excess ABG Methemoglobin Hemoglobin Carboxyhemoglobin O2 Delivery Device Liter Flow Vent Setting Inspired O2 Critical Value Sodium 140 Potassium 7.0 H* Chloride 113 H Carbon Dioxide 14.2 L Anion Gap 13 BUN 47 H Creatinine 2.41 H Estimated GFR 34 L POC Glucose Random Glucose 76 Lactic Acid Calcium 8.2 L Phosphorus Magnesium 2.6 H Total Bilirubin 2.1 H AST 200 H ALT 72 Alkaline Phosphatase 71 Total Creatine Kinase 1302 H CK-MB (CK-2) 25.4 H CK-MB (CK-2) % 2.0 Troponin I 0.20 H B-Natriuretic Peptide 4307 H Total Protein 8.0 Albumin 2.4 L Lipase 184 Cortisol Urine Color Urine Clarity Urine pH Ur Specific [place] Urine Protein Urine Glucose (UA) Urine Ketones Urine Occult Blood Urine Nitrate Urine Bilirubin Urine Urobilinogen Ur Leukocyte Esterase Urine RBC Urine WBC Ur Squamous Epith Cells Amorphous Sediment Urine Bacteria Hyaline Casts Urine Mucus Micro UA Comment Urine Culture Comments Urine Osmolality Ur Random Creatinine Ur Random Sodium Nasal Screen MRSA (PCR) Stl C.difficile Tox PCR Negative St C. diff Tox Epid 027 Negative Urine Opiates Screen Ur Barbiturates Screen Ur Amphetamines Screen U Benzodiazepines Scrn Urine Cocaine Screen U Cannabinoids Screen Serum Alcohol Less than 3 RACHID Screen Complement C3 Complement C4 Hepatitis A IgM Ab Hep Bs Antigen Hep B Core IgM Ab Hep C IgG Ab 11/19/17 11/19/17 11/19/17 06:35 06:35 06:35 WBC RBC Hgb Hct MCV MCH MCHC RDW Plt Count MPV Prelim Diff (Auto) Neut % (Auto) Lymph % (Auto) [place] % (Auto) Eos % (Auto) Baso % (Auto) Neut # (Auto) Lymph # (Auto) [place] # (Auto) Eos # (Auto) Baso # (Auto) WBC Differential Seg Neuts % (Manual) Band Neuts % (Manual) Lymphocytes % (Manual) Monocytes % (Manual) Abs Neuts (Manual) Differential Comment Platelet Estimate Platelet Morphology Ovalocytes Acanthocytes (Spur) PT INR APTT Puncture Site Patient Temperature O2 Saturation ABG pH ABG pCO2 ABG pO2 ABG HCO3 ABG O2 Content ABG Base Excess ABG Methemoglobin Hemoglobin Carboxyhemoglobin O2 Delivery Device Liter Flow Vent Setting Inspired O2 Critical Value Sodium Potassium Chloride Carbon Dioxide Anion Gap BUN Creatinine Estimated GFR POC Glucose Random Glucose Lactic Acid Calcium Phosphorus Magnesium Total Bilirubin AST ALT Alkaline Phosphatase Total Creatine Kinase CK-MB (CK-2) CK-MB (CK-2) % Troponin I B-Natriuretic Peptide Total Protein Albumin Lipase Cortisol 59.8 Urine Color [place] Urine Clarity Cloudy H Urine pH 5.0 Ur Specific [place] 1.019 Urine Protein 500 or greater Urine Glucose (UA) Negative Urine Ketones Negative Urine Occult Blood Large H Urine Nitrate Negative Urine Bilirubin Negative Urine Urobilinogen 4 or greater Ur Leukocyte Esterase Negative Urine RBC 38 H Urine WBC 18 H Ur Squamous Epith Cells <1 Amorphous Sediment Few H Urine Bacteria Few H Hyaline Casts 6 Urine Mucus Few H Micro UA Comment Cath-culture ind Urine Culture Comments Cath-cult indicated Urine Osmolality Ur Random Creatinine Ur Random Sodium Nasal Screen MRSA (PCR) Stl C.difficile Tox PCR St C. diff Tox Epid 027 Urine Opiates Screen Neg Ur Barbiturates Screen Neg Ur Amphetamines Screen Neg U Benzodiazepines Scrn Neg Urine Cocaine Screen Pos H U Cannabinoids Screen Neg Serum Alcohol RACHID Screen Complement C3 Complement C4 Hepatitis A IgM Ab Hep Bs Antigen Hep B Core IgM Ab Hep C IgG Ab 11/19/17 11/19/17 11/19/17 06:35 08:03 09:15 WBC RBC Hgb Hct MCV MCH MCHC RDW Plt Count MPV Prelim Diff (Auto) Neut % (Auto) Lymph % (Auto) [place] % (Auto) Eos % (Auto) Baso % (Auto) Neut # (Auto) Lymph # (Auto) [place] # (Auto) Eos # (Auto) Baso # (Auto) WBC Differential Seg Neuts % (Manual) Band Neuts % (Manual) Lymphocytes % (Manual) Monocytes % (Manual) Abs Neuts (Manual) Differential Comment Platelet Estimate Platelet Morphology Ovalocytes Acanthocytes (Spur) PT INR APTT Puncture Site Left femoral Patient Temperature 98.6 O2 Saturation 96 ABG pH 7.26 L* ABG pCO2 40 ABG pO2 129 H ABG HCO3 17 L ABG O2 Content 21.6 H ABG Base Excess -8.4 L ABG Methemoglobin 1.3 Hemoglobin 15.9 Carboxyhemoglobin 0.8 O2 Delivery Device Nasal cannula Liter Flow 6.00 Vent Setting Inspired O2 21 Critical Value Yes Sodium Potassium 6.9 H* Chloride Carbon Dioxide Anion Gap BUN Creatinine Estimated GFR POC Glucose Random Glucose Lactic Acid Calcium Phosphorus Magnesium Total Bilirubin AST ALT Alkaline Phosphatase Total Creatine Kinase CK-MB (CK-2) CK-MB (CK-2) % Troponin I B-Natriuretic Peptide Total Protein Albumin Lipase Cortisol Urine Color Urine Clarity Urine pH Ur Specific [place] Urine Protein Urine Glucose (UA) Urine Ketones Urine Occult Blood Urine Nitrate Urine Bilirubin Urine Urobilinogen Ur Leukocyte Esterase Urine RBC Urine WBC Ur Squamous Epith Cells Amorphous Sediment Urine Bacteria Hyaline Casts Urine Mucus Micro UA Comment Urine Culture Comments Urine Osmolality Ur Random Creatinine Ur Random Sodium Nasal Screen MRSA (PCR) Not detected Stl C.difficile Tox PCR St C. diff Tox Epid 027 Urine Opiates Screen Ur Barbiturates Screen Ur Amphetamines Screen U Benzodiazepines Scrn Urine Cocaine Screen U Cannabinoids Screen Serum Alcohol RACHID Screen Complement C3 Complement C4 Hepatitis A IgM Ab Hep Bs Antigen Hep B Core IgM Ab Hep C IgG Ab 11/19/17 11/19/17 11/19/17 09:15 09:32 09:32 WBC RBC Hgb Hct MCV MCH MCHC RDW Plt Count MPV Prelim Diff (Auto) Neut % (Auto) Lymph % (Auto) [place] % (Auto) Eos % (Auto) Baso % (Auto) Neut # (Auto) Lymph # (Auto) [place] # (Auto) Eos # (Auto) Baso # (Auto) WBC Differential Seg Neuts % (Manual) Band Neuts % (Manual) Lymphocytes % (Manual) Monocytes % (Manual) Abs Neuts (Manual) Differential Comment Platelet Estimate Platelet Morphology Ovalocytes Acanthocytes (Spur) PT INR APTT Puncture Site Art line Patient Temperature 98.6 O2 Saturation 97 ABG pH 7.49 H ABG pCO2 29 L ABG pO2 293 H ABG HCO3 22 ABG O2 Content 20.8 H ABG Base Excess -1.4 ABG Methemoglobin 1.2 Hemoglobin 14.7 Carboxyhemoglobin 1.3 O2 Delivery Device Ventilator Liter Flow Vent Setting Prvc/ac Inspired O2 60 Critical Value No Sodium Potassium 5.6 H D Chloride Carbon Dioxide Anion Gap BUN Creatinine Estimated GFR POC Glucose Random Glucose Lactic Acid 4.2 H* Calcium Phosphorus Magnesium Total Bilirubin AST ALT Alkaline Phosphatase Total Creatine Kinase CK-MB (CK-2) CK-MB (CK-2) % Troponin I 0.25 H B-Natriuretic Peptide Total Protein Albumin Lipase Cortisol Urine Color Urine Clarity Urine pH Ur Specific [place] Urine Protein Urine Glucose (UA) Urine Ketones Urine Occult Blood Urine Nitrate Urine Bilirubin Urine Urobilinogen Ur Leukocyte Esterase Urine RBC Urine WBC Ur Squamous Epith Cells Amorphous Sediment Urine Bacteria Hyaline Casts Urine Mucus Micro UA Comment Urine Culture Comments Urine Osmolality Ur Random Creatinine Ur Random Sodium Nasal Screen MRSA (PCR) Stl C.difficile Tox PCR St C. diff Tox Epid 027 Urine Opiates Screen Ur Barbiturates Screen Ur Amphetamines Screen U Benzodiazepines Scrn Urine Cocaine Screen U Cannabinoids Screen Serum Alcohol RACHID Screen Complement C3 Complement C4 Hepatitis A IgM Ab Hep Bs Antigen Hep B Core IgM Ab Hep C IgG Ab 11/19/17 11/19/17 11/19/17 11:06 11:18 11:46 WBC RBC Hgb Hct MCV MCH MCHC RDW Plt Count MPV Prelim Diff (Auto) Neut % (Auto) Lymph % (Auto) [place] % (Auto) Eos % (Auto) Baso % (Auto) Neut # (Auto) Lymph # (Auto) [place] # (Auto) Eos # (Auto) Baso # (Auto) WBC Differential Seg Neuts % (Manual) Band Neuts % (Manual) Lymphocytes % (Manual) Monocytes % (Manual) Abs Neuts (Manual) Differential Comment Platelet Estimate Platelet Morphology Ovalocytes Acanthocytes (Spur) PT INR APTT Puncture Site Patient Temperature O2 Saturation ABG pH ABG pCO2 ABG pO2 ABG HCO3 ABG O2 Content ABG Base Excess ABG Methemoglobin Hemoglobin Carboxyhemoglobin O2 Delivery Device Liter Flow Vent Setting Inspired O2 Critical Value Sodium Potassium Chloride Carbon Dioxide Anion Gap BUN Creatinine Estimated GFR POC Glucose 39 L* 168 H Random Glucose Lactic Acid Calcium Phosphorus Magnesium Total Bilirubin AST ALT Alkaline Phosphatase Total Creatine Kinase CK-MB (CK-2) CK-MB (CK-2) % Troponin I B-Natriuretic Peptide Total Protein Albumin Lipase Cortisol Urine Color Urine Clarity Urine pH Ur Specific [place] Urine Protein Urine Glucose (UA) Urine Ketones Urine Occult Blood Urine Nitrate Urine Bilirubin Urine Urobilinogen Ur Leukocyte Esterase Urine RBC Urine WBC Ur Squamous Epith Cells Amorphous Sediment Urine Bacteria Hyaline Casts Urine Mucus Micro UA Comment Urine Culture Comments Urine Osmolality Ur Random Creatinine Ur Random Sodium Nasal Screen MRSA (PCR) Stl C.difficile Tox PCR St C. diff Tox Epid 027 Urine Opiates Screen Ur Barbiturates Screen Ur Amphetamines Screen U Benzodiazepines Scrn Urine Cocaine Screen U Cannabinoids Screen Serum Alcohol RACHID Screen Complement C3 Complement C4 Hepatitis A IgM Ab Nonreactive Hep Bs Antigen Nonreactive Hep B Core IgM Ab Nonreactive Hep C IgG Ab Reactive H 11/19/17 11/19/17 11/19/17 14:55 16:15 16:15 WBC RBC Hgb Hct MCV MCH MCHC RDW Plt Count MPV Prelim Diff (Auto) Neut % (Auto) Lymph % (Auto) [place] % (Auto) Eos % (Auto) Baso % (Auto) Neut # (Auto) Lymph # (Auto) [place] # (Auto) Eos # (Auto) Baso # (Auto) WBC Differential Seg Neuts % (Manual) Band Neuts % (Manual) Lymphocytes % (Manual) Monocytes % (Manual) Abs Neuts (Manual) Differential Comment Platelet Estimate Platelet Morphology Ovalocytes Acanthocytes (Spur) PT INR APTT Puncture Site Patient Temperature O2 Saturation ABG pH ABG pCO2 ABG pO2 ABG HCO3 ABG O2 Content ABG Base Excess ABG Methemoglobin Hemoglobin Carboxyhemoglobin O2 Delivery Device Liter Flow Vent Setting Inspired O2 Critical Value Sodium Potassium Chloride Carbon Dioxide Anion Gap BUN Creatinine Estimated GFR POC Glucose Random Glucose Lactic Acid 2.3 H Calcium Phosphorus Magnesium Total Bilirubin AST ALT Alkaline Phosphatase Total Creatine Kinase CK-MB (CK-2) CK-MB (CK-2) % Troponin I 0.26 H B-Natriuretic Peptide Total Protein Albumin Lipase Cortisol Urine Color Urine Clarity Urine pH Ur Specific [place] Urine Protein Urine Glucose (UA) Urine Ketones Urine Occult Blood Urine Nitrate Urine Bilirubin Urine Urobilinogen Ur Leukocyte Esterase Urine RBC Urine WBC Ur Squamous Epith Cells Amorphous Sediment Urine Bacteria Hyaline Casts Urine Mucus Micro UA Comment Urine Culture Comments Urine Osmolality Ur Random Creatinine Ur Random Sodium Nasal Screen MRSA (PCR) Stl C.difficile Tox PCR St C. diff Tox Epid 027 Urine Opiates Screen Ur Barbiturates Screen Ur Amphetamines Screen U Benzodiazepines Scrn Urine Cocaine Screen U Cannabinoids Screen Serum Alcohol RACHID Screen Pos H Complement C3 Complement C4 Hepatitis A IgM Ab Hep Bs Antigen Hep B Core IgM Ab Hep C IgG Ab 11/19/17 11/19/17 11/19/17 16:45 17:40 20:30 WBC RBC Hgb Hct MCV MCH MCHC RDW Plt Count MPV Prelim Diff (Auto) Neut % (Auto) Lymph % (Auto) [place] % (Auto) Eos % (Auto) Baso % (Auto) Neut # (Auto) Lymph # (Auto) [place] # (Auto) Eos # (Auto) Baso # (Auto) WBC Differential Seg Neuts % (Manual) Band Neuts % (Manual) Lymphocytes % (Manual) Monocytes % (Manual) Abs Neuts (Manual) Differential Comment Platelet Estimate Platelet Morphology Ovalocytes Acanthocytes (Spur) PT INR APTT Puncture Site Art line Patient Temperature 98.6 O2 Saturation 96 ABG pH 7.61 H* ABG pCO2 24 L* ABG pO2 104 ABG HCO3 24 ABG O2 Content 18.0 ABG Base Excess 2.5 H ABG Methemoglobin 1.4 Hemoglobin 13.3 Carboxyhemoglobin 1.2 O2 Delivery Device Ventilator Liter Flow Vent Setting Prvc/ac Inspired O2 40 Critical Value Yes Sodium Potassium Chloride Carbon Dioxide Anion Gap BUN Creatinine Estimated GFR POC Glucose 108 101 Random Glucose Lactic Acid Calcium Phosphorus Magnesium Total Bilirubin AST ALT Alkaline Phosphatase Total Creatine Kinase CK-MB (CK-2) CK-MB (CK-2) % Troponin I B-Natriuretic Peptide Total Protein Albumin Lipase Cortisol Urine Color Urine Clarity Urine pH Ur Specific [place] Urine Protein Urine Glucose (UA) Urine Ketones Urine Occult Blood Urine Nitrate Urine Bilirubin Urine Urobilinogen Ur Leukocyte Esterase Urine RBC Urine WBC Ur Squamous Epith Cells Amorphous Sediment Urine Bacteria Hyaline Casts Urine Mucus Micro UA Comment Urine Culture Comments Urine Osmolality Ur Random Creatinine Ur Random Sodium Nasal Screen MRSA (PCR) Stl C.difficile Tox PCR St C. diff Tox Epid 027 Urine Opiates Screen Ur Barbiturates Screen Ur Amphetamines Screen U Benzodiazepines Scrn Urine Cocaine Screen U Cannabinoids Screen Serum Alcohol RACHID Screen Complement C3 Complement C4 Hepatitis A IgM Ab Hep Bs Antigen Hep B Core IgM Ab Hep C IgG Ab 11/19/17 11/19/17 11/19/17 20:45 20:45 20:45 WBC RBC Hgb Hct MCV MCH MCHC RDW Plt Count MPV Prelim Diff (Auto) Neut % (Auto) Lymph % (Auto) [place] % (Auto) Eos % (Auto) Baso % (Auto) Neut # (Auto) Lymph # (Auto) [place] # (Auto) Eos # (Auto) Baso # (Auto) WBC Differential Seg Neuts % (Manual) Band Neuts % (Manual) Lymphocytes % (Manual) Monocytes % (Manual) Abs Neuts (Manual) Differential Comment Platelet Estimate Platelet Morphology Ovalocytes Acanthocytes (Spur) PT INR APTT Puncture Site Patient Temperature O2 Saturation ABG pH ABG pCO2 ABG pO2 ABG HCO3 ABG O2 Content ABG Base Excess ABG Methemoglobin Hemoglobin Carboxyhemoglobin O2 Delivery Device Liter Flow Vent Setting Inspired O2 Critical Value Sodium Potassium Chloride Carbon Dioxide Anion Gap BUN Creatinine Estimated GFR POC Glucose Random Glucose Lactic Acid Calcium Phosphorus Magnesium Total Bilirubin AST ALT Alkaline Phosphatase Total Creatine Kinase CK-MB (CK-2) CK-MB (CK-2) % Troponin I B-Natriuretic Peptide Total Protein Albumin Lipase Cortisol Urine Color Urine Clarity Urine pH Ur Specific [place] Urine Protein Urine Glucose (UA) Urine Ketones Urine Occult Blood Urine Nitrate Urine Bilirubin Urine Urobilinogen Ur Leukocyte Esterase Urine RBC Urine WBC Ur Squamous Epith Cells Amorphous Sediment Urine Bacteria Hyaline Casts Urine Mucus Micro UA Comment Urine Culture Comments Urine Osmolality 309 Ur Random Creatinine 42 Ur Random Sodium 84 Cancelled Nasal Screen MRSA (PCR) Stl C.difficile Tox PCR St C. diff Tox Epid 027 Urine Opiates Screen Ur Barbiturates Screen Ur Amphetamines Screen U Benzodiazepines Scrn Urine Cocaine Screen U Cannabinoids Screen Serum Alcohol RACHID Screen Complement C3 Complement C4 Hepatitis A IgM Ab Hep Bs Antigen Hep B Core IgM Ab Hep C IgG Ab 11/20/17 11/20/17 11/20/17 04:50 04:50 04:50 WBC 6.4 RBC 4.69 Hgb 13.6 D Hct 41.5 MCV 88.5 D MCH 29.0 MCHC 32.7 RDW 16.2 Plt Count 87 L MPV 8.7 Prelim Diff (Auto) Slide review pending Neut % (Auto) 84.3 H Lymph % (Auto) 7.9 L [place] % (Auto) 7.4 Eos % (Auto) 0.2 Baso % (Auto) 0.2 Neut # (Auto) 5.4 Lymph # (Auto) 0.5 L [place] # (Auto) 0.5 Eos # (Auto) 0.0 Baso # (Auto) 0.0 WBC Differential Manual diff final Seg Neuts % (Manual) 81 H Band Neuts % (Manual) 14 H Lymphocytes % (Manual) 2 L Monocytes % (Manual) 3 Abs Neuts (Manual) 6.1 Differential Comment . Platelet Estimate Low L Platelet Morphology Enlarged H Ovalocytes 1+ H Acanthocytes (Spur) Occ H PT INR APTT Puncture Site Patient Temperature O2 Saturation ABG pH ABG pCO2 ABG pO2 ABG HCO3 ABG O2 Content ABG Base Excess ABG Methemoglobin Hemoglobin Carboxyhemoglobin O2 Delivery Device Liter Flow Vent Setting Inspired O2 Critical Value Sodium 144 Potassium 3.4 L D Chloride 109 H Carbon Dioxide 28.4 D Anion Gap 7 BUN 44 H Creatinine 2.07 H Estimated GFR 40 L POC Glucose Random Glucose 110 H Lactic Acid 1.1 Calcium 7.8 L Phosphorus 2.8 Magnesium 2.0 D Total Bilirubin 1.8 H AST 274 H ALT 130 H Alkaline Phosphatase 59 Total Creatine Kinase CK-MB (CK-2) CK-MB (CK-2) % Troponin I B-Natriuretic Peptide Total Protein 6.7 D Albumin 2.5 L Lipase Cortisol Urine Color Urine Clarity Urine pH Ur Specific [place] Urine Protein Urine Glucose (UA) Urine Ketones Urine Occult Blood Urine Nitrate Urine Bilirubin Urine Urobilinogen Ur Leukocyte Esterase Urine RBC Urine WBC Ur Squamous Epith Cells Amorphous Sediment Urine Bacteria Hyaline Casts Urine Mucus Micro UA Comment Urine Culture Comments Urine Osmolality Ur Random Creatinine Ur Random Sodium Nasal Screen MRSA (PCR) Stl C.difficile Tox PCR St C. diff Tox Epid 027 Urine Opiates Screen Ur Barbiturates Screen Ur Amphetamines Screen U Benzodiazepines Scrn Urine Cocaine Screen U Cannabinoids Screen Serum Alcohol RACHID Screen Complement C3 42 L Complement C4 6 L Hepatitis A IgM Ab Hep Bs Antigen Hep B Core IgM Ab Hep C IgG Ab 11/20/17 11/20/17 11/20/17 04:50 07:38 11:45 WBC RBC Hgb Hct MCV MCH MCHC RDW Plt Count MPV Prelim Diff (Auto) Neut % (Auto) Lymph % (Auto) [place] % (Auto) Eos % (Auto) Baso % (Auto) Neut # (Auto) Lymph # (Auto) [place] # (Auto) Eos # (Auto) Baso # (Auto) WBC Differential Seg Neuts % (Manual) Band Neuts % (Manual) Lymphocytes % (Manual) Monocytes % (Manual) Abs Neuts (Manual) Differential Comment Platelet Estimate Platelet Morphology Ovalocytes Acanthocytes (Spur) PT INR APTT Puncture Site Patient Temperature O2 Saturation ABG pH ABG pCO2 ABG pO2 ABG HCO3 ABG O2 Content ABG Base Excess ABG Methemoglobin Hemoglobin Carboxyhemoglobin O2 Delivery Device Liter Flow Vent Setting Inspired O2 Critical Value Sodium Potassium Chloride Carbon Dioxide Anion Gap BUN Creatinine Estimated GFR POC Glucose 96 91 Random Glucose Lactic Acid Calcium Phosphorus Magnesium Total Bilirubin AST ALT Alkaline Phosphatase Total Creatine Kinase CK-MB (CK-2) CK-MB (CK-2) % Troponin I B-Natriuretic Peptide 2134 H Total Protein Albumin Lipase Cortisol Urine Color Urine Clarity Urine pH Ur Specific [place] Urine Protein Urine Glucose (UA) Urine Ketones Urine Occult Blood Urine Nitrate Urine Bilirubin Urine Urobilinogen Ur Leukocyte Esterase Urine RBC Urine WBC Ur Squamous Epith Cells Amorphous Sediment Urine Bacteria Hyaline Casts Urine Mucus Micro UA Comment Urine Culture Comments Urine Osmolality Ur Random Creatinine Ur Random Sodium Nasal Screen MRSA (PCR) Stl C.difficile Tox PCR St C. diff Tox Epid 027 Urine Opiates Screen Ur Barbiturates Screen Ur Amphetamines Screen U Benzodiazepines Scrn Urine Cocaine Screen U Cannabinoids Screen Serum Alcohol RACHID Screen Complement C3 Complement C4 Hepatitis A IgM Ab Hep Bs Antigen Hep B Core IgM Ab Hep C IgG Ab 11/20/17 11/20/17 11/21/17 15:36 19:32 03:54 WBC 4.1 RBC 4.83 Hgb 14.1 Hct 42.8 MCV 88.6 MCH 29.1 MCHC 32.8 RDW 16.8 Plt Count 73 L MPV 9.2 Prelim Diff (Auto) Slide review pending Neut % (Auto) 83.7 H Lymph % (Auto) 6.4 L [place] % (Auto) 5.1 Eos % (Auto) 4.3 H Baso % (Auto) 0.5 Neut # (Auto) 3.4 Lymph # (Auto) 0.3 L [place] # (Auto) 0.2 Eos # (Auto) 0.2 Baso # (Auto) 0.0 WBC Differential . Seg Neuts % (Manual) Band Neuts % (Manual) Lymphocytes % (Manual) Monocytes % (Manual) Abs Neuts (Manual) Differential Comment . Platelet Estimate Low L Platelet Morphology Enlarged H Ovalocytes Acanthocytes (Spur) PT INR APTT Puncture Site Patient Temperature O2 Saturation ABG pH ABG pCO2 ABG pO2 ABG HCO3 ABG O2 Content ABG Base Excess ABG Methemoglobin Hemoglobin Carboxyhemoglobin O2 Delivery Device Liter Flow Vent Setting Inspired O2 Critical Value Sodium Potassium Chloride Carbon Dioxide Anion Gap BUN Creatinine Estimated GFR POC Glucose 90 90 Random Glucose Lactic Acid Calcium Phosphorus Magnesium Total Bilirubin AST ALT Alkaline Phosphatase Total Creatine Kinase CK-MB (CK-2) CK-MB (CK-2) % Troponin I B-Natriuretic Peptide Total Protein Albumin Lipase Cortisol Urine Color Urine Clarity Urine pH Ur Specific [place] Urine Protein Urine Glucose (UA) Urine Ketones Urine Occult Blood Urine Nitrate Urine Bilirubin Urine Urobilinogen Ur Leukocyte Esterase Urine RBC Urine WBC Ur Squamous Epith Cells Amorphous Sediment Urine Bacteria Hyaline Casts Urine Mucus Micro UA Comment Urine Culture Comments Urine Osmolality Ur Random Creatinine Ur Random Sodium Nasal Screen MRSA (PCR) Stl C.difficile Tox PCR St C. diff Tox Epid 027 Urine Opiates Screen Ur Barbiturates Screen Ur Amphetamines Screen U Benzodiazepines Scrn Urine Cocaine Screen U Cannabinoids Screen Serum Alcohol RACHID Screen Complement C3 Complement C4 Hepatitis A IgM Ab Hep Bs Antigen Hep B Core IgM Ab Hep C IgG Ab 11/21/17 11/21/17 11/21/17 03:54 05:16 10:20 WBC RBC Hgb Hct MCV MCH MCHC RDW Plt Count MPV Prelim Diff (Auto) Neut % (Auto) Lymph % (Auto) [place] % (Auto) Eos % (Auto) Baso % (Auto) Neut # (Auto) Lymph # (Auto) [place] # (Auto) Eos # (Auto) Baso # (Auto) WBC Differential Seg Neuts % (Manual) Band Neuts % (Manual) Lymphocytes % (Manual) Monocytes % (Manual) Abs Neuts (Manual) Differential Comment Platelet Estimate Platelet Morphology Ovalocytes Acanthocytes (Spur) PT INR APTT Puncture Site Patient Temperature O2 Saturation ABG pH ABG pCO2 ABG pO2 ABG HCO3 ABG O2 Content ABG Base Excess ABG Methemoglobin Hemoglobin Carboxyhemoglobin O2 Delivery Device Liter Flow Vent Setting Inspired O2 Critical Value Sodium 143 Potassium 2.9 L* Chloride 106 Carbon Dioxide 29.9 Anion Gap 7 BUN 31 H Creatinine 1.66 H Estimated GFR 52 L POC Glucose 94 77 Random Glucose 101 Lactic Acid Calcium 8.2 L Phosphorus 1.5 L D Magnesium 1.8 Total Bilirubin 2.0 H AST 183 H ALT 100 H Alkaline Phosphatase 54 Total Creatine Kinase CK-MB (CK-2) CK-MB (CK-2) % Troponin I B-Natriuretic Peptide Total Protein 6.4 Albumin 2.5 L Lipase Cortisol Urine Color Urine Clarity Urine pH Ur Specific [place] Urine Protein Urine Glucose (UA) Urine Ketones Urine Occult Blood Urine Nitrate Urine Bilirubin Urine Urobilinogen Ur Leukocyte Esterase Urine RBC Urine WBC Ur Squamous Epith Cells Amorphous Sediment Urine Bacteria Hyaline Casts Urine Mucus Micro UA Comment Urine Culture Comments Urine Osmolality Ur Random Creatinine Ur Random Sodium Nasal Screen MRSA (PCR) Stl C.difficile Tox PCR St C. diff Tox Epid 027 Urine Opiates Screen Ur Barbiturates Screen Ur Amphetamines Screen U Benzodiazepines Scrn Urine Cocaine Screen U Cannabinoids Screen Serum Alcohol RACHID Screen Complement C3 Complement C4 Hepatitis A IgM Ab Hep Bs Antigen Hep B Core IgM Ab Hep C IgG Ab Result Diagrams: 11/21/17 03:54 11/21/17 03:54 Microbiology: Microbiology 11/19/17 06:35 Urine Culture - Preliminary Catheterized Urine Group D Enterococcus 11/19/17 11:46 Aerobic Blood Culture - Preliminary Blood - Peripheral No growth in 2 days Anaerobic Blood Culture - Preliminary No growth in 2 days 11/19/17 08:20 Aerobic Blood Culture - Preliminary Blood - Peripheral No growth in 2 days Anaerobic Blood Culture - Preliminary No growth in 2 days Imaging: Abdomen/Pelvis CT 11/19/17 03:55 CONCLUSION: 1. Limited, suboptimal examination performed without intravenous or oral contrast. The study is degraded by motion artifact as well. 2. Abnormal bowel gas pattern with multiple small air-fluid levels. The bowel is suboptimally visualized and evaluated secondary to the lack of the intravenous and oral contrast as well as diffuse ascites. This may represent a gastroenteritis and/or ileus. Obstruction is less likely. 3. Diffuse ascites throughout the abdomen and pelvis. 4. Moderate size right effusion which is increased from the prior study. There is a new small left effusion. 5. Moderate cardiomegaly. 6. No definite gallstones identified. Chest X-Ray 11/19/17 03:55 CONCLUSION: 1. Mild hazy opacity is now noted in the right perihilar region concerning for mild pulmonary edema. 2. The heart size remains mildly enlarged and appearance. Head CT 11/19/17 03:55 CONCLUSION: 1. No acute hemorrhage or mass effect. 2. Mild motion and streak artifact. . Chest X-Ray 11/19/17 08:50 CONCLUSION: 1. ETT in good position. NGT beyond the GE junction. Central lines in good position. 2. Persistent atypical pulmonary edema pattern. Procedures: 11/19/2017: Right radial arterial line placement 11/19/2017: Endotracheal intubation 11/19/2017: Right subclavian triple-lumen catheter placement 11/19/2017 right IJ dialysis catheter placement . 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 He was never and has no children. He was previously in the [employer]. 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 Legal: No living will or healthcare surrogate completed. Ethical issues impacting care: None noted. . Important Contacts: Mother: Angelina Medina healthcare proxy Sister: Bryan Sharp Sister: Kamille Verdugo Brother: Segundo Verdugo Brother: aCrter Chavez Sister: Kaylie Gama . Prognosis: His prognosis is poor. He has end-stage heart disease now with an ejection fraction estimated to be less than 10% by safety inspector echo. He has suffered a decline in heart function since June 2017 when echocardiogram showed a 50-55% ejection fraction at the time of mitral valve repair. Patient continued to abuse cocaine and possibly other substances and when seen in [place] September 2017 for chest pain was found to have non-ischemic cardiomyopathy with a normal coronary artery circulation and ejection fraction of 20-25%. Echocardiogram at this admission shows cardiogenic shock with an EF less than 10%. He is now requiring inotropic support with milrinone and now has acute kidney injury requiring dialysis for both hyperkalemia and fluid overload. At this time he remains on life support, intubated, but is at elevated risk for continued complications and decline. He would be hospice appropriate if goals were consistent. . Code Status: No Code DNR Plan: PLAN: Legal decision maker: At this time the patient is not capacitated for decision making and it is not certain that he will ever regain capacity. He was never and has no children. His mother would be his proxy decision maker per [place] statutes. She had previously been reported to me as demented and unable to make these decisions, however, her daughter, Kaylie, who is her caregiver disputes that and states that her mother is perfectly capable of making these decisions and wishes to be her son's decision-maker. In conversation with Ms. Medina, herself, she appeared appropriate and capable of decision-making. Goals: Aggressive short of no code. CODE STATUS: DO NOT RESUSCITATE SYMPTOMS: * Altered mental status: Presented with altered mental status, positive for cocaine, hypoglycemic, hyperkalemic, in fulminant heart failure, minimally able to make his needs known. Shortly thereafter he required intubation and sedation. He becomes agitated when sedation is lightened but does not follow commands. Possibly related to end stage heart failure. Bedside critical care echo showed severe biventricular dysfunction with EF less than 10%, aortic valve opening only minimally due to low flow. * Edema: Edema is improving on hemodialysis, with 1.5 L removed 11/19 and 2 L removed 11/20. Urine output is decreasing. He is receiving inotropic support with milrinone. Dialysis management per nephrology. Palliative care will continue to follow the patient during hospital course as condition evolves, to assist patient/decision-maker with understanding of their medical conditions, weighing benefits/burdens of treatment options, for clarification of goals of treatment. Additionally will assist with any symptoms of palliative concern. . Attestation Attestation: To help prompt me to consider important information that might be impacting today's encounter and assessment, information from prior notes written by myself or my colleagues may have been "brought forward" into today's note. My signature on this note, however, is an attestation that I personally performed the exam, history, and/or decision-making noted today, and, unless otherwise indicated, the interactions with patient, family, and staff as well as the review of records all occurred today. I also attest that the listed assessment and stated plan reflect my best clinical judgment today based on the combination of historical information, prior notes, and today's exam/ interactions. When time spent is documented, it refers only to time spent today by the signer, or if indicated, combined time spent today by collaborating physician/nurse practitioner. .
[2017-11-21] MEDS ORDERED: Potassium Chlor 20 mEq Premix 20 MEQ/100 ML PIGGYBACK IV.SIG SCH (12:30)
[2017-11-21] MEDS ORDERED: Potassium Phosphate Inj 15 MMOL in Sodium Chlor 0.9% Inj 150 ML IV.SIG ONE (13:00)
[2017-11-21] MEDS: Potassium Chlor 10 mEq Premix 10 MEQ/100 ML PIGGYBACK IV.SIG SCH ×4 (14:08→17:05)
[2017-11-22 04:54] LABS: Baso % (Auto) 0.2 % (0.0-2.0); Eos # (Auto) 0.1 th/mm3 (0.0-0.4); Eos % (Auto) 1.1 % (0.0-4.0); Hematocrit 44.7 % (39.0-51.0); Hemoglobin 14.6 gm/dL (13.0-17.0); Lymph # (Auto) 0.4 th/mm3 (1.0-4.8); Lymph % (Auto) 7.6 % (9.0-44.0); Mean Corpuscular HGB Conc 32.6 % (32.0-36.0); Mean Corpuscular Volume 88.9 fL (80.0-100.0); Mean Platelet Volume 9.4 fL (7.0-11.0); Mono # (Auto) 0.3 th/mm3 (0.0-0.9); Mono % (Auto) 5.6 % (0.0-8.0); Neut % (Auto) 85.5 % (16.0-70.0); Platelet Count 76 th/mm3 (150-450); Red Blood Count 5.03 mil/mm3 (4.50-5.90); Red Cell Distribution Width 16.2 % (11.6-17.2); White Blood Count 5.9 th/mm3 (4.0-11.0)
[2017-11-22 05:16] LABS: Albumin 2.1 g/dL (3.4-5.0); Anion Gap 7 meq/L (5-15); Aspartate Aminotransferase 122 U/L (15-37); Blood Urea Nitrogen 35 mg/dL (7-18); Calcium 7.8 mg/dL (8.5-10.1); Carbon Dioxide 27.7 meq/L (21.0-32.0); Chloride 107 meq/L (98-107); Glomerular Filtration Rate 54 mL/min (>89); Glucose,Random 99 mg/dL (74-106); Magnesium 1.7 mg/dL (1.5-2.5); Potassium 3.6 meq/L (3.5-5.1); Sodium 142 meq/L (136-145)
[2017-11-22 05:22] LABS: Alanine Aminotransferase 77 U/L (12-78); Alkaline Phosphatase 56 U/L (45-117); Phosphorus 2.6 mg/dL (2.5-4.9); Total Protein 6.4 g/dL (6.4-8.2)
[2017-11-22] MEDS: Heparin - SQ 10,000 UNITS/ML Vial SQ SCH ×3 (05:44→21:29)
[2017-11-22] MEDS: Chlorhexidine Gluconate 2% 1 Pack (2 Cloths) TOPICAL SCH (05:45)
[2017-11-22 07:20] LABS: Acanthocytes Occ
[2017-11-22] MEDS: Senna/Docusate Sodium 8.6/50 MG Tablet PO SCH ×2 (08:12→21:29)
[2017-11-22] MEDS: Famotidine PF Inj 20 MG/2 ML Vial IV.PUSH SCH (08:12)
[2017-11-22] MEDS: Milrinone Inj 20 MG in Sodium Chlor 0.9% Inj 80 ML IV.CONT SCH (08:13)
[2017-11-22] MEDS: Midazolam 50 MG/50 ML Inj 50 MG/50 ML BAG IV.CONT PRN (08:13)
--- NOTE | 2017-11-22 10:02 | P.PNCC ---
Subjective Subjective Remarks/Hospital Course: 11/19: This is a 57yM with history of cardiomyopathy and an EF 20% who recently underwent mitral valve repair for severe MR. At that time, he had a preserved LVEF. However, he continued to use illicit cocaine, and on subsequent hospital admissions, his EF had fallen to 20%. He represents today with altered mental status, endorsing cocaine use. On further evaluation, he has a potassium of 7, Cr 2.4, AST/ALT 200/72, CK 1302, BNP 4307, co2 14. On my evaluation he is obtunded and agonally breathing, intermittently tachypneic. I performed bedside critical care echo which demonstrated a severe biventricular dysfunction and an EF < 10%. there was spontaneous echo contrast in the LV and the aortic valve appeared to open only minimally due to low-flow. Patient is grossly anasarcic with 3+ edema bilaterally up to the abdomen. he has JVD above the level of the mandible. I emergently intubated the patient (see separate procedure note for details). I emergently placed arterial, central lines, and dialysis catheter. potassium did not improve with medical therapy. we consulted nephrology for emergent HD. I also placed the patient on epinephrine drip for cardiogenic shock. due to the patient's mental status and clinical status, no additional information is available from him. ROS unobtainable. 1: Remains sedated, orally intubated on mechanical ventilation. Dialyzed this morning. Remains on pressors. 2: Remains sedated, orally intubated on mechanical ventilation. Hypothermic this morning. 11/22: Remains sedated, orally intubated on mechanical ventilation. Dialysis scheduled today. Objective Vital Signs / I&O: Vital Signs 11/21/17 10:00 11/21/17 10:18 11/21/17 11:00 Temperature Pulse Rate 116 H 117 H 119 H Respiratory Rate 21 19 20 Blood Pressure 154/105 H 158/102 H 142/109 H Pulse Oximetry 99 99 97 11/21/17 11:59 11/21/17 12:00 11/21/17 13:00 Temperature 101.1 F H Pulse Rate 106 H 103 H Respiratory Rate 17 16 16 Blood Pressure 137/110 H 142/73 H Pulse Oximetry 100 98 97 11/21/17 15:30 11/21/17 15:57 11/21/17 15:58 Temperature Pulse Rate 106 H 105 H Respiratory Rate 16 17 16 Blood Pressure Pulse Oximetry 99 99 11/21/17 15:59 11/21/17 16:00 11/21/17 16:01 Temperature 101.3 F H Pulse Rate 105 H 105 H 105 H Respiratory Rate 17 18 17 Blood Pressure 118/75 Pulse Oximetry 99 99 98 11/21/17 16:02 11/21/17 16:03 11/21/17 16:04 Temperature Pulse Rate 105 H 106 H 104 H Respiratory Rate 17 17 17 Blood Pressure Pulse Oximetry 98 98 97 11/21/17 16:05 11/21/17 16:06 11/21/17 16:07 Temperature Pulse Rate 104 H 104 H 105 H Respiratory Rate 17 16 16 Blood Pressure Pulse Oximetry 97 97 97 11/21/17 16:08 11/21/17 16:09 11/21/17 16:10 Temperature Pulse Rate 105 H 105 H 106 H Respiratory Rate 16 16 16 Blood Pressure Pulse Oximetry 97 97 97 11/21/17 16:11 11/21/17 16:12 11/21/17 16:13 Temperature Pulse Rate 105 H 104 H 104 H Respiratory Rate 17 17 16 Blood Pressure Pulse Oximetry 97 98 97 11/21/17 16:14 11/21/17 16:15 11/21/17 16:16 Temperature Pulse Rate 104 H 104 H 104 H Respiratory Rate 16 16 16 Blood Pressure Pulse Oximetry 97 98 98 11/21/17 16:17 11/21/17 16:18 11/21/17 16:19 Temperature Pulse Rate 104 H 104 H 104 H Respiratory Rate 16 16 16 Blood Pressure Pulse Oximetry 98 98 98 11/21/17 16:20 11/21/17 16:21 11/21/17 16:22 Temperature Pulse Rate 104 H 104 H 104 H Respiratory Rate 16 16 16 Blood Pressure Pulse Oximetry 98 98 98 11/21/17 16:23 11/21/17 16:24 11/21/17 16:25 Temperature Pulse Rate 104 H 104 H 103 H Respiratory Rate 16 16 16 Blood Pressure Pulse Oximetry 98 98 98 11/21/17 16:26 11/21/17 16:27 11/21/17 16:28 Temperature Pulse Rate 104 H 104 H 104 H Respiratory Rate 16 16 16 Blood Pressure Pulse Oximetry 98 98 98 11/21/17 16:29 11/21/17 16:30 11/21/17 16:31 Temperature Pulse Rate 104 H 104 H 104 H Respiratory Rate 16 16 16 Blood Pressure Pulse Oximetry 98 98 98 11/21/17 16:32 11/21/17 16:33 11/21/17 16:34 Temperature Pulse Rate 104 H 104 H 103 H Respiratory Rate 16 16 16 Blood Pressure Pulse Oximetry 99 98 98 11/21/17 16:35 11/21/17 16:36 11/21/17 16:37 Temperature Pulse Rate 103 H 104 H 104 H Respiratory Rate 16 16 16 Blood Pressure Pulse Oximetry 98 98 99 11/21/17 16:38 11/21/17 16:39 11/21/17 16:40 Temperature Pulse Rate 104 H 104 H 104 H Respiratory Rate 16 16 16 Blood Pressure Pulse Oximetry 98 98 98 11/21/17 16:41 11/21/17 16:42 11/21/17 16:43 Temperature Pulse Rate 104 H 104 H 104 H Respiratory Rate 16 16 16 Blood Pressure Pulse Oximetry 98 98 99 11/21/17 16:44 11/21/17 16:45 11/21/17 20:00 Temperature Pulse Rate 103 H 103 H 105 H Respiratory Rate 16 16 Blood Pressure 111/74 Pulse Oximetry 99 99 100 11/21/17 20:05 11/21/17 20:06 11/21/17 20:07 Temperature 99.3 F Pulse Rate 102 H 102 H 102 H Respiratory Rate 16 16 16 Blood Pressure Pulse Oximetry 99 100 99 11/21/17 20:08 11/21/17 20:09 11/21/17 20:10 Temperature Pulse Rate 103 H 103 H 102 H Respiratory Rate 16 16 16 Blood Pressure Pulse Oximetry 99 99 99 11/21/17 20:11 11/21/17 20:12 11/21/17 20:13 Temperature Pulse Rate 104 H 103 H 103 H Respiratory Rate 16 16 17 Blood Pressure Pulse Oximetry 99 99 99 11/21/17 20:14 11/21/17 20:15 11/21/17 20:16 Temperature Pulse Rate 103 H 104 H 104 H Respiratory Rate 16 16 16 Blood Pressure Pulse Oximetry 100 99 99 11/21/17 20:17 11/21/17 20:18 11/21/17 20:19 Temperature Pulse Rate 103 H 104 H 103 H Respiratory Rate 16 16 16 Blood Pressure Pulse Oximetry 99 99 99 11/21/17 20:20 11/21/17 20:21 11/21/17 20:22 Temperature Pulse Rate 103 H 103 H 103 H Respiratory Rate 16 16 16 Blood Pressure Pulse Oximetry 99 99 99 11/21/17 20:23 11/21/17 20:24 11/21/17 20:25 Temperature Pulse Rate 104 H 102 H 102 H Respiratory Rate 16 16 16 Blood Pressure Pulse Oximetry 99 99 99 11/21/17 20:26 11/21/17 20:27 11/21/17 20:28 Temperature Pulse Rate 101 H 101 H 101 H Respiratory Rate 16 16 16 Blood Pressure Pulse Oximetry 99 99 99 11/21/17 20:29 11/21/17 20:30 11/21/17 20:31 Temperature Pulse Rate 102 H 101 H 102 H Respiratory Rate 16 16 16 Blood Pressure Pulse Oximetry 99 99 100 11/21/17 20:32 11/21/17 20:33 11/21/17 20:34 Temperature Pulse Rate 102 H 102 H 103 H Respiratory Rate 17 16 16 Blood Pressure Pulse Oximetry 100 100 100 11/21/17 20:35 11/21/17 20:36 11/21/17 20:37 Temperature Pulse Rate 108 H 112 H 116 H Respiratory Rate 19 16 16 Blood Pressure Pulse Oximetry 100 100 100 11/21/17 20:38 11/21/17 20:39 11/21/17 20:40 Temperature Pulse Rate 115 H 114 H 112 H Respiratory Rate 16 16 16 Blood Pressure Pulse Oximetry 100 100 100 11/21/17 20:41 11/21/17 20:42 11/21/17 20:43 Temperature Pulse Rate 112 H 109 H 109 H Respiratory Rate 16 16 17 Blood Pressure Pulse Oximetry 100 100 100 11/21/17 20:44 11/21/17 20:45 11/21/17 20:46 Temperature Pulse Rate 108 H 107 H 106 H Respiratory Rate 16 16 16 Blood Pressure Pulse Oximetry 100 100 100 11/21/17 20:47 11/21/17 20:48 11/21/17 20:49 Temperature Pulse Rate 106 H 106 H 105 H Respiratory Rate 16 16 17 Blood Pressure Pulse Oximetry 100 100 100 11/21/17 20:50 11/21/17 20:51 11/21/17 20:52 Temperature Pulse Rate 105 H 106 H 106 H Respiratory Rate 17 17 16 Blood Pressure Pulse Oximetry 100 100 100 11/21/17 20:53 11/21/17 20:54 11/21/17 20:58 Temperature Pulse Rate 105 H 105 H Respiratory Rate 17 16 16 Blood Pressure Pulse Oximetry 99 99 99 11/21/17 23:18 11/21/17 23:19 11/21/17 23:20 Temperature Pulse Rate 95 H 95 H 97 H Respiratory Rate 16 16 16 Blood Pressure Pulse Oximetry 100 100 100 11/21/17 23:21 11/21/17 23:22 11/21/17 23:23 Temperature Pulse Rate 95 H 93 H 93 H Respiratory Rate 16 16 16 Blood Pressure Pulse Oximetry 99 100 99 11/21/17 23:24 11/21/17 23:25 11/21/17 23:26 Temperature Pulse Rate 94 H 94 H 96 H Respiratory Rate 16 16 16 Blood Pressure Pulse Oximetry 100 100 98 11/21/17 23:27 11/21/17 23:28 11/21/17 23:29 Temperature Pulse Rate 94 H 95 H 94 H Respiratory Rate 16 16 16 Blood Pressure Pulse Oximetry 99 100 100 11/21/17 23:30 11/21/17 23:31 11/21/17 23:32 Temperature Pulse Rate 95 H 94 H 93 H Respiratory Rate 16 16 16 Blood Pressure Pulse Oximetry 100 100 100 11/21/17 23:33 11/21/17 23:34 11/21/17 23:35 Temperature Pulse Rate 93 H 94 H 95 H Respiratory Rate 16 16 15 Blood Pressure Pulse Oximetry 100 100 99 11/21/17 23:36 11/21/17 23:37 11/21/17 23:38 Temperature Pulse Rate 94 H 94 H 93 H Respiratory Rate 16 16 16 Blood Pressure Pulse Oximetry 100 100 100 11/21/17 23:39 11/21/17 23:40 11/21/17 23:41 Temperature Pulse Rate 94 H 93 H 93 H Respiratory Rate 16 16 16 Blood Pressure Pulse Oximetry 100 100 99 11/21/17 23:42 11/21/17 23:43 11/21/17 23:44 Temperature Pulse Rate 93 H 93 H 93 H Respiratory Rate 16 16 16 Blood Pressure Pulse Oximetry 100 99 100 11/21/17 23:45 11/21/17 23:46 11/21/17 23:47 Temperature Pulse Rate 93 H 93 H 93 H Respiratory Rate 16 16 16 Blood Pressure Pulse Oximetry 100 100 100 11/21/17 23:48 11/21/17 23:49 11/21/17 23:50 Temperature Pulse Rate 92 H 92 H 92 H Respiratory Rate 16 16 16 Blood Pressure Pulse Oximetry 100 100 100 11/21/17 23:51 11/21/17 23:52 11/21/17 23:53 Temperature Pulse Rate 92 H 92 H 91 H Respiratory Rate 16 16 16 Blood Pressure Pulse Oximetry 99 99 99 11/21/17 23:54 11/21/17 23:55 11/21/17 23:56 Temperature Pulse Rate 92 H 92 H 92 H Respiratory Rate 16 16 16 Blood Pressure Pulse Oximetry 100 100 100 11/21/17 23:57 11/21/17 23:58 11/21/17 23:59 Temperature Pulse Rate 92 H 92 H 92 H Respiratory Rate 16 16 16 Blood Pressure Pulse Oximetry 100 100 100 11/22/17 00:00 11/22/17 00:01 11/22/17 00:02 Temperature 98.9 F Pulse Rate 92 H 92 H 92 H Respiratory Rate 16 16 16 Blood Pressure 122/60 Pulse Oximetry 100 100 100 11/22/17 00:03 11/22/17 00:04 11/22/17 00:05 Temperature Pulse Rate 91 H 91 H 91 H Respiratory Rate 16 16 16 Blood Pressure Pulse Oximetry 100 100 100 11/22/17 00:06 11/22/17 00:08 11/22/17 03:54 Temperature Pulse Rate 92 H 83 Respiratory Rate 16 16 16 Blood Pressure Pulse Oximetry 99 100 99 11/22/17 03:55 11/22/17 03:56 11/22/17 03:57 Temperature Pulse Rate 83 83 82 Respiratory Rate 16 16 16 Blood Pressure Pulse Oximetry 100 100 99 11/22/17 03:58 11/22/17 03:59 11/22/17 04:00 Temperature Pulse Rate 81 82 83 Respiratory Rate 16 16 16 Blood Pressure 103/75 Pulse Oximetry 100 98 100 11/22/17 04:01 11/22/17 04:02 11/22/17 04:03 Temperature 97.8 F Pulse Rate 82 82 82 Respiratory Rate 16 16 16 Blood Pressure Pulse Oximetry 100 100 99 11/22/17 04:04 11/22/17 04:05 08/03/18 04:06 Temperature Pulse Rate 83 83 83 Respiratory Rate 16 16 16 Blood Pressure Pulse Oximetry 100 100 100 11/22/17 04:07 11/22/17 04:08 11/22/17 04:09 Temperature Pulse Rate 84 82 83 Respiratory Rate 16 16 16 Blood Pressure Pulse Oximetry 84 L 92 L 87 L 11/22/17 04:10 11/22/17 04:11 11/22/17 04:12 Temperature Pulse Rate 83 84 82 Respiratory Rate 16 16 16 Blood Pressure Pulse Oximetry 96 100 97 11/22/17 04:13 11/22/17 04:14 11/22/17 04:15 Temperature Pulse Rate 84 87 86 Respiratory Rate 16 16 17 Blood Pressure Pulse Oximetry 98 96 99 11/22/17 04:16 11/22/17 04:17 11/22/17 04:18 Temperature Pulse Rate 86 86 85 Respiratory Rate 16 16 16 Blood Pressure Pulse Oximetry 99 100 100 11/22/17 04:19 11/22/17 04:20 11/22/17 04:21 Temperature Pulse Rate 84 83 83 Respiratory Rate 16 16 16 Blood Pressure Pulse Oximetry 100 100 100 11/22/17 04:22 11/22/17 04:23 11/22/17 04:24 Temperature Pulse Rate 83 81 83 Respiratory Rate 16 16 16 Blood Pressure Pulse Oximetry 100 100 100 11/22/17 04:25 11/22/17 04:26 11/22/17 04:27 Temperature Pulse Rate 84 84 83 Respiratory Rate 16 16 16 Blood Pressure Pulse Oximetry 100 100 100 11/22/17 04:28 11/22/17 04:29 11/22/17 04:30 Temperature Pulse Rate 83 82 82 Respiratory Rate 16 16 16 Blood Pressure Pulse Oximetry 100 100 100 11/22/17 04:31 11/22/17 04:32 11/22/17 04:33 Temperature Pulse Rate 83 83 84 Respiratory Rate 16 16 16 Blood Pressure Pulse Oximetry 100 100 100 11/22/17 04:34 11/22/17 04:35 11/22/17 04:36 Temperature Pulse Rate 84 92 H 92 H Respiratory Rate 16 18 16 Blood Pressure Pulse Oximetry 99 98 97 11/22/17 04:37 11/22/17 04:38 11/22/17 04:39 Temperature Pulse Rate 92 H 91 H 90 Respiratory Rate 16 16 16 Blood Pressure Pulse Oximetry 98 100 100 11/22/17 04:40 11/22/17 04:41 11/22/17 04:42 Temperature Pulse Rate 90 89 87 Respiratory Rate 16 16 16 Blood Pressure Pulse Oximetry 99 100 100 11/22/17 07:03 11/22/17 09:40 Temperature Pulse Rate Respiratory Rate 17 16 Blood Pressure Pulse Oximetry 100 100 Intake & Output 11/21/17 11/22/17 11/22/17 18:59 06:59 18:59 Intake Total 450 / 450 205 / 205 150 / 150 Output Total 450 / 450 200 / 200 Balance 0 / 0 5 / 5 150 / 150 Weight 66 kg Intake: IV 450 / 450 205 / 205 150 / 150 Versed Inj 50 mg In 50 ml @ 2 50 / 50 50 / 50 50 / 50 MG/HR 2 mls/hr IV.CONT TITRATE PRN Rx#:[id number] Primacor Inj 20 MG In NS Inj 80 100 / 100 100 / 100 ML @ 0.5 MCG/KG/MIN 10.5 mls/ hr IV.CONT .Q9H32M [facility] Rx#: [id number] KCl 10 mEq Premix Inj 10 meq In 300 / 300 100 ml @ 100 mls/hr IV.SIG Q1H RUDDY Rx#:[id number] Potassium Phosphate Inj 15 MMOL 155 / 155 In NS Inj 150 ML @ 38.75 mls/ hr IV.SIG ONCE ONE Rx#:[id number] Oral 0 / 0 Tube Feeding 0 / 0 Output: Urine Amount (Catheter) 450 / 450 200 / 200 Indwelling Urethral Catheter 450 / 450 200 / 200 Other: Date of Last Bowel Movement 11/21/17 11/20/17 # Bowel Movements 1 Result Diagrams: 11/22/17 04:09 11/22/17 04:09 Objective Remarks: HEENT/ Neuro: Sedated, orally intubated, Pallor present, no icterus, tongue/ mucosa moist Neck: No JVD Chest/Pulm: on mech vent, good air entry bilaterally, no wheezing or crackles CVS: S1-S2 regular, no murmur GI/abdomen: soft, nontender, bowel sounds sluggish Extremities: warm bilaterally, no edema Assessment and Plan - Assessment and Plan Plan: Assessment: 57yM with severe cardiomyopathy and ongoing cocaine abuse who presents in severe cardiogenic shock combined with active cocaine intoxication. Very critically ill, in extremis, in multiorgan failure. Overall, this is a patient whose cocaine use has complicated his cardiac problems to the point that this is now likely an end-stage process. will consult palliative care to assist the family, but this may be a fatal hospitalization for him due to his ongoing cocaine abuse and now multiorgan failure. Plan by systems: Neurologic: Acute toxic encephalopathy Acute cocaine intoxication Acute metabolic encephalopathy secondary to shock Sedation while intubated with daily sedation vacation. Versed infusion for goal RASS -2 Respiratory: Acute hypoxic and hypercarbic respiratory failure Acute severe pulmonary edema Probable Crack Lung Vent bundle Head of bed elevated Nebs Wean FiO2 for goal SPO2 greater than 90% Asymmetric pulmonary consolidation pattern is consistent with chronic crack cocaine use No SBT today given active shock dialysis for volume overload and pulmonary edema Cardiovascular: Cardiogenic shock Acute severe systolic congestive heart failure exacerbation Acute type II non-ST elevation myocardial infarction secondary to demand ischemia known prior EF 20% (09/2017), now bedside echo appears to be acutely < 10% likely secondary to chronic cocaine use superimposed on cardiomyopathy. emergent HD for fluid removal and preload optimization milrinone to assist with cardiac output. Off levophed and epinephrine drips. trend cvp trend lactates watch uop Renal: Acute kidney injury Most likely secondary to cardiogenic shock Smith has been placed Every hour urine outputs Emergent HD Nephrology consult -- Strict I/Os FEN/GI: Severe life-threatening hyperkalemia Severe intravascular volume overload Severe acute protein calorie malnutrition Lactic acidosis Severe anion gap metabolic acidosis N.p.o. while in shock Nephrology consulted with emergent dialysis Trend daily BMP, mag, phosphorus 2 A of bicarb IV 1 Now hypokalemic. K-Phos ordered on 11/21. Hemodialysis per renal. Heme/ID: Daily CBC No infectious etiology suspected this time Patient has severe diarrhea which is most likely ischemic colitis secondary to cardiogenic shock Endocrine: Acute hypoglycemia, severe D10W at 30 miles an hour Frequent glycemic checks -- SSI Prophylaxis: GI Prophylaxis Pepcid IV DVT Prophylaxis -- SCDs Subcu heparin Lines: 11/19 right brachial arterial line 11/19 right subclavian 7 Wolof triple-lumen catheter 11/19 right IJ 14 Wolof 20 cm dialysis catheter 11/19 Smith Prognosis appears poor. Palliative care following to assist with deciding goals of therapy. This patient remains critically ill with one or more organ systems which are or may become a threat to life. I have spent in excess of 35 minutes discontinuously in the care and management of this patient. This time is exclusive of procedures, and includes, but is not limited to, evaluation of the patient, review of the medical record, discussions with family, consultants, nursing staff, or respiratory therapy, and documentation in the medical record.
[2017-11-22] MEDS: Morphine Inj 4 MG/ML Vial IV.PUSH PRN (10:18)
--- NOTE | 2017-11-22 11:30 | P.PNNP ---
Subjective Interval history: Remains intubated, seen during hemodialysis. UF only, creatinine has improved at 1.61. <Karine Turcios - Last Filed: 11/22/17 11:25> Physical Exam Vital signs: Vital Signs 11/21/17 11:59 11/21/17 12:00 11/21/17 13:00 Temperature 101.1 F H Pulse Rate 106 H 103 H Respiratory Rate 17 16 16 Blood Pressure 137/110 H 142/73 H Pulse Oximetry 100 98 97 11/21/17 15:30 11/21/17 15:57 11/21/17 15:58 Temperature Pulse Rate 106 H 105 H Respiratory Rate 16 17 16 Blood Pressure Pulse Oximetry 99 99 11/21/17 15:59 11/21/17 16:00 11/21/17 16:01 Temperature 101.3 F H Pulse Rate 105 H 105 H 105 H Respiratory Rate 17 18 17 Blood Pressure 118/75 Pulse Oximetry 99 99 98 11/21/17 16:02 11/21/17 16:03 11/21/17 16:04 Temperature Pulse Rate 105 H 106 H 104 H Respiratory Rate 17 17 17 Blood Pressure Pulse Oximetry 98 98 97 11/21/17 16:05 11/21/17 16:06 11/21/17 16:07 Temperature Pulse Rate 104 H 104 H 105 H Respiratory Rate 17 16 16 Blood Pressure Pulse Oximetry 97 97 97 11/21/17 16:08 11/21/17 16:09 11/21/17 16:10 Temperature Pulse Rate 105 H 105 H 106 H Respiratory Rate 16 16 16 Blood Pressure Pulse Oximetry 97 97 97 11/21/17 16:11 11/21/17 16:12 11/21/17 16:13 Temperature Pulse Rate 105 H 104 H 104 H Respiratory Rate 17 17 16 Blood Pressure Pulse Oximetry 97 98 97 11/21/17 16:14 11/21/17 16:15 11/21/17 16:16 Temperature Pulse Rate 104 H 104 H 104 H Respiratory Rate 16 16 16 Blood Pressure Pulse Oximetry 97 98 98 11/21/17 16:17 11/21/17 16:18 11/21/17 16:19 Temperature Pulse Rate 104 H 104 H 104 H Respiratory Rate 16 16 16 Blood Pressure Pulse Oximetry 98 98 98 11/21/17 16:20 11/21/17 16:21 11/21/17 16:22 Temperature Pulse Rate 104 H 104 H 104 H Respiratory Rate 16 16 16 Blood Pressure Pulse Oximetry 98 98 98 11/21/17 16:23 11/21/17 16:24 11/21/17 16:25 Temperature Pulse Rate 104 H 104 H 103 H Respiratory Rate 16 16 16 Blood Pressure Pulse Oximetry 98 98 98 11/21/17 16:26 11/21/17 16:27 11/21/17 16:28 Temperature Pulse Rate 104 H 104 H 104 H Respiratory Rate 16 16 16 Blood Pressure Pulse Oximetry 98 98 98 11/21/17 16:29 11/21/17 16:30 11/21/17 16:31 Temperature Pulse Rate 104 H 104 H 104 H Respiratory Rate 16 16 16 Blood Pressure Pulse Oximetry 98 98 98 11/21/17 16:32 11/21/17 16:33 11/21/17 16:34 Temperature Pulse Rate 104 H 104 H 103 H Respiratory Rate 16 16 16 Blood Pressure Pulse Oximetry 99 98 98 11/21/17 16:35 11/21/17 16:36 11/21/17 16:37 Temperature Pulse Rate 103 H 104 H 104 H Respiratory Rate 16 16 16 Blood Pressure Pulse Oximetry 98 98 99 11/21/17 16:38 11/21/17 16:39 11/21/17 16:40 Temperature Pulse Rate 104 H 104 H 104 H Respiratory Rate 16 16 16 Blood Pressure Pulse Oximetry 98 98 98 11/21/17 16:41 11/21/17 16:42 11/21/17 16:43 Temperature Pulse Rate 104 H 104 H 104 H Respiratory Rate 16 16 16 Blood Pressure Pulse Oximetry 98 98 99 11/21/17 16:44 11/21/17 16:45 11/21/17 20:00 Temperature Pulse Rate 103 H 103 H 105 H Respiratory Rate 16 16 Blood Pressure 111/74 Pulse Oximetry 99 99 100 11/21/17 20:05 11/21/17 20:06 11/21/17 20:07 Temperature 99.3 F Pulse Rate 102 H 102 H 102 H Respiratory Rate 16 16 16 Blood Pressure Pulse Oximetry 99 100 99 11/21/17 20:08 11/21/17 20:09 11/21/17 20:10 Temperature Pulse Rate 103 H 103 H 102 H Respiratory Rate 16 16 16 Blood Pressure Pulse Oximetry 99 99 99 11/21/17 20:11 11/21/17 20:12 11/21/17 20:13 Temperature Pulse Rate 104 H 103 H 103 H Respiratory Rate 16 16 17 Blood Pressure Pulse Oximetry 99 99 99 11/21/17 20:14 11/21/17 20:15 11/21/17 20:16 Temperature Pulse Rate 103 H 104 H 104 H Respiratory Rate 16 16 16 Blood Pressure Pulse Oximetry 100 99 99 11/21/17 20:17 11/21/17 20:18 11/21/17 20:19 Temperature Pulse Rate 103 H 104 H 103 H Respiratory Rate 16 16 16 Blood Pressure Pulse Oximetry 99 99 99 11/21/17 20:20 11/21/17 20:21 11/21/17 20:22 Temperature Pulse Rate 103 H 103 H 103 H Respiratory Rate 16 16 16 Blood Pressure Pulse Oximetry 99 99 99 11/21/17 20:23 11/21/17 20:24 11/21/17 20:25 Temperature Pulse Rate 104 H 102 H 102 H Respiratory Rate 16 16 16 Blood Pressure Pulse Oximetry 99 99 99 11/21/17 20:26 11/21/17 20:27 11/21/17 20:28 Temperature Pulse Rate 101 H 101 H 101 H Respiratory Rate 16 16 16 Blood Pressure Pulse Oximetry 99 99 99 11/21/17 20:29 11/21/17 20:30 11/21/17 20:31 Temperature Pulse Rate 102 H 101 H 102 H Respiratory Rate 16 16 16 Blood Pressure Pulse Oximetry 99 99 100 11/21/17 20:32 11/21/17 20:33 11/21/17 20:34 Temperature Pulse Rate 102 H 102 H 103 H Respiratory Rate 17 16 16 Blood Pressure Pulse Oximetry 100 100 100 11/21/17 20:35 11/21/17 20:36 11/21/17 20:37 Temperature Pulse Rate 108 H 112 H 116 H Respiratory Rate 19 16 16 Blood Pressure Pulse Oximetry 100 100 100 11/21/17 20:38 11/21/17 20:39 11/21/17 20:40 Temperature Pulse Rate 115 H 114 H 112 H Respiratory Rate 16 16 16 Blood Pressure Pulse Oximetry 100 100 100 11/21/17 20:41 11/21/17 20:42 11/21/17 20:43 Temperature Pulse Rate 112 H 109 H 109 H Respiratory Rate 16 16 17 Blood Pressure Pulse Oximetry 100 100 100 11/21/17 20:44 11/21/17 20:45 11/21/17 20:46 Temperature Pulse Rate 108 H 107 H 106 H Respiratory Rate 16 16 16 Blood Pressure Pulse Oximetry 100 100 100 11/21/17 20:47 11/21/17 20:48 11/21/17 20:49 Temperature Pulse Rate 106 H 106 H 105 H Respiratory Rate 16 16 17 Blood Pressure Pulse Oximetry 100 100 100 11/21/17 20:50 11/21/17 20:51 11/21/17 20:52 Temperature Pulse Rate 105 H 106 H 106 H Respiratory Rate 17 17 16 Blood Pressure Pulse Oximetry 100 100 100 11/21/17 20:53 11/21/17 20:54 11/21/17 20:58 Temperature Pulse Rate 105 H 105 H Respiratory Rate 17 16 16 Blood Pressure Pulse Oximetry 99 99 99 11/21/17 23:18 11/21/17 23:19 11/21/17 23:20 Temperature Pulse Rate 95 H 95 H 97 H Respiratory Rate 16 16 16 Blood Pressure Pulse Oximetry 100 100 100 11/21/17 23:21 11/21/17 23:22 11/21/17 23:23 Temperature Pulse Rate 95 H 93 H 93 H Respiratory Rate 16 16 16 Blood Pressure Pulse Oximetry 99 100 99 11/21/17 23:24 11/21/17 23:25 11/21/17 23:26 Temperature Pulse Rate 94 H 94 H 96 H Respiratory Rate 16 16 16 Blood Pressure Pulse Oximetry 100 100 98 11/21/17 23:27 11/21/17 23:28 11/21/17 23:29 Temperature Pulse Rate 94 H 95 H 94 H Respiratory Rate 16 16 16 Blood Pressure Pulse Oximetry 99 100 100 11/21/17 23:30 11/21/17 23:31 11/21/17 23:32 Temperature Pulse Rate 95 H 94 H 93 H Respiratory Rate 16 16 16 Blood Pressure Pulse Oximetry 100 100 100 11/21/17 23:33 11/21/17 23:34 11/21/17 23:35 Temperature Pulse Rate 93 H 94 H 95 H Respiratory Rate 16 16 15 Blood Pressure Pulse Oximetry 100 100 99 11/21/17 23:36 11/21/17 23:37 11/21/17 23:38 Temperature Pulse Rate 94 H 94 H 93 H Respiratory Rate 16 16 16 Blood Pressure Pulse Oximetry 100 100 100 11/21/17 23:39 11/21/17 23:40 11/21/17 23:41 Temperature Pulse Rate 94 H 93 H 93 H Respiratory Rate 16 16 16 Blood Pressure Pulse Oximetry 100 100 99 11/21/17 23:42 11/21/17 23:43 11/21/17 23:44 Temperature Pulse Rate 93 H 93 H 93 H Respiratory Rate 16 16 16 Blood Pressure Pulse Oximetry 100 99 100 11/21/17 23:45 11/21/17 23:46 11/21/17 23:47 Temperature Pulse Rate 93 H 93 H 93 H Respiratory Rate 16 16 16 Blood Pressure Pulse Oximetry 100 100 100 11/21/17 23:48 11/21/17 23:49 11/21/17 23:50 Temperature Pulse Rate 92 H 92 H 92 H Respiratory Rate 16 16 16 Blood Pressure Pulse Oximetry 100 100 100 11/21/17 23:51 11/21/17 23:52 11/21/17 23:53 Temperature Pulse Rate 92 H 92 H 91 H Respiratory Rate 16 16 16 Blood Pressure Pulse Oximetry 99 99 99 11/21/17 23:54 11/21/17 23:55 11/21/17 23:56 Temperature Pulse Rate 92 H 92 H 92 H Respiratory Rate 16 16 16 Blood Pressure Pulse Oximetry 100 100 100 11/21/17 23:57 11/21/17 23:58 11/21/17 23:59 Temperature Pulse Rate 92 H 92 H 92 H Respiratory Rate 16 16 16 Blood Pressure Pulse Oximetry 100 100 100 11/22/17 00:00 11/22/17 00:01 11/22/17 00:02 Temperature 98.9 F Pulse Rate 92 H 92 H 92 H Respiratory Rate 16 16 16 Blood Pressure 122/60 Pulse Oximetry 100 100 100 11/22/17 00:03 11/22/17 00:04 11/22/17 00:05 Temperature Pulse Rate 91 H 91 H 91 H Respiratory Rate 16 16 16 Blood Pressure Pulse Oximetry 100 100 100 11/22/17 00:06 11/22/17 00:08 11/22/17 03:54 Temperature Pulse Rate 92 H 83 Respiratory Rate 16 16 16 Blood Pressure Pulse Oximetry 99 100 99 11/22/17 03:55 11/22/17 03:56 11/22/17 03:57 Temperature Pulse Rate 83 83 82 Respiratory Rate 16 16 16 Blood Pressure Pulse Oximetry 100 100 99 11/22/17 03:58 11/22/17 03:59 11/22/17 04:00 Temperature Pulse Rate 81 82 83 Respiratory Rate 16 16 16 Blood Pressure 103/75 Pulse Oximetry 100 98 100 11/22/17 04:01 11/22/17 04:02 11/22/17 04:03 Temperature 97.8 F Pulse Rate 82 82 82 Respiratory Rate 16 16 16 Blood Pressure Pulse Oximetry 100 100 99 11/22/17 04:04 11/22/17 04:05 11/22/17 04:06 Temperature Pulse Rate 83 83 83 Respiratory Rate 16 16 16 Blood Pressure Pulse Oximetry 100 100 100 11/22/17 04:07 11/22/17 04:08 11/22/17 04:09 Temperature Pulse Rate 84 82 83 Respiratory Rate 16 16 16 Blood Pressure Pulse Oximetry 84 L 92 L 87 L 11/22/17 04:10 11/22/17 04:11 11/22/17 04:12 Temperature Pulse Rate 83 84 82 Respiratory Rate 16 16 16 Blood Pressure Pulse Oximetry 96 100 97 11/22/17 04:13 11/22/17 04:14 11/22/17 04:15 Temperature Pulse Rate 84 87 86 Respiratory Rate 16 16 17 Blood Pressure Pulse Oximetry 98 96 99 11/22/17 04:16 11/22/17 04:17 11/22/17 04:18 Temperature Pulse Rate 86 86 85 Respiratory Rate 16 16 16 Blood Pressure Pulse Oximetry 99 100 100 11/22/17 04:19 11/22/17 04:20 11/22/17 04:21 Temperature Pulse Rate 84 83 83 Respiratory Rate 16 16 16 Blood Pressure Pulse Oximetry 100 100 100 11/22/17 04:22 11/22/17 04:23 11/22/17 04:24 Temperature Pulse Rate 83 81 83 Respiratory Rate 16 16 16 Blood Pressure Pulse Oximetry 100 100 100 11/22/17 04:25 11/22/17 04:26 11/22/17 04:27 Temperature Pulse Rate 84 84 83 Respiratory Rate 16 16 16 Blood Pressure Pulse Oximetry 100 100 100 11/22/17 04:28 11/22/17 04:29 11/22/17 04:30 Temperature Pulse Rate 83 82 82 Respiratory Rate 16 16 16 Blood Pressure Pulse Oximetry 100 100 100 11/22/17 04:31 11/22/17 04:32 11/22/17 04:33 Temperature Pulse Rate 83 83 84 Respiratory Rate 16 16 16 Blood Pressure Pulse Oximetry 100 100 100 11/22/17 04:34 11/22/17 04:35 11/22/17 04:36 Temperature Pulse Rate 84 92 H 92 H Respiratory Rate 16 18 16 Blood Pressure Pulse Oximetry 99 98 97 11/22/17 04:37 11/22/17 04:38 11/22/17 04:39 Temperature Pulse Rate 92 H 91 H 90 Respiratory Rate 16 16 16 Blood Pressure Pulse Oximetry 98 100 100 11/22/17 04:40 11/22/17 04:41 11/22/17 04:42 Temperature Pulse Rate 90 89 87 Respiratory Rate 16 16 16 Blood Pressure Pulse Oximetry 99 100 100 11/22/17 07:03 11/22/17 08:00 11/22/17 09:40 Temperature 97.9 F Pulse Rate 98 H Respiratory Rate 17 16 16 Blood Pressure 139/103 H Pulse Oximetry 100 100 100 Intake & Output 11/21/17 11/22/17 11/22/17 18:59 06:59 18:59 Intake Total 450 / 450 205 / 205 150 / 150 Output Total 450 / 450 200 / 200 Balance 0 / 0 5 / 5 150 / 150 Weight 66 kg Intake: IV 450 / 450 205 / 205 150 / 150 Versed Inj 50 mg In 50 ml @ 2 50 / 50 50 / 50 50 / 50 MG/HR 2 mls/hr IV.CONT TITRATE PRN Rx#:[id number] Primacor Inj 20 MG In NS Inj 80 100 / 100 100 / 100 ML @ 0.5 MCG/KG/MIN 10.5 mls/ hr IV.CONT .Q9H32M [facility] Rx#: [id number] KCl 10 mEq Premix Inj 10 meq In 300 / 300 100 ml @ 100 mls/hr IV.SIG Q1H [facility] Rx#:[id number] Potassium Phosphate Inj 15 MMOL 155 / 155 In NS Inj 150 ML @ 38.75 mls/ hr IV.SIG ONCE ONE Rx#:[id number] Oral 0 / 0 Tube Feeding 0 / 0 Output: Urine Amount (Catheter) 450 / 450 200 / 200 Indwelling Urethral Catheter 450 / 450 200 / 200 Other: Date of Last Bowel Movement 11/21/17 11/20/17 11/20/17 # Bowel Movements 1 Narrative: GENERAL: Intubated and sedated SKIN: Warm and dry. HEAD: Normocephalic. EYES: No scleral icterus. No injection or drainage. NECK: Supple, trachea midline. No JVD or lymphadenopathy. CARDIOVASCULAR: Regular rate and rhythm without murmurs, gallops, or rubs. Edema has improved only in feet. RESPIRATORY: Breath sounds decreased bilaterally. No accessory muscle use. Intubated GASTROINTESTINAL: Abdomen soft, non-tender, large. OG tube GENITOURINARY: Indwelling Smith catheter, small amount of dark colored urine MUSCULOSKELETAL: No cyanosis - Urinary Catheter Management Indwelling Urethral Catheter Cath placed during this visit: yes Reason for continuing: Hourly intake/output Insertion date: 11/19/17 Insertion time: 06:43 <Karine Turcios - Last Filed: 11/22/17 11:25> Vital signs: Vital Signs 11/22/17 12:00 11/22/17 13:00 11/22/17 15:55 Temperature 97.7 F Pulse Rate 86 Respiratory Rate 16 16 16 Blood Pressure 91/65 L Pulse Oximetry 99 99 100 11/22/17 16:00 11/22/17 20:00 11/22/17 20:11 Temperature 98.6 F 99.0 F Pulse Rate 87 87 Respiratory Rate 16 16 16 Blood Pressure 112/72 112/72 Pulse Oximetry 99 100 99 11/22/17 23:54 11/23/17 00:00 11/23/17 03:07 Temperature 99.3 F Pulse Rate 91 H Respiratory Rate 16 16 16 Blood Pressure 128/85 Pulse Oximetry 99 100 100 11/23/17 04:00 11/23/17 07:28 11/23/17 08:00 Temperature 99 F Pulse Rate 99 H 87 Respiratory Rate 17 18 Blood Pressure 140/97 H 126/96 H Pulse Oximetry 97 100 Intake & Output 11/22/17 11/23/17 11/23/17 18:59 06:59 18:59 Intake Total 181.2 / 181.2 117.5 / 117.5 Output Total 3225 / 3225 200 / 200 Balance -3043.8 / -3043.8 -82.5 / -82.5 Weight 66 kg Intake: IV 181.2 / 181.2 117.5 / 117.5 Versed Inj 50 mg In 50 ml @ 2 81.2 / 81.2 17.5 / 17.5 MG/HR 2 mls/hr IV.CONT TITRATE PRN Rx#:[id number] Primacor Inj 20 MG In NS Inj 80 100 / 100 100 / 100 ML @ 0.5 MCG/KG/MIN 10.5 mls/ hr IV.CONT .Q9H32M [facility] Rx#: [id number] Oral 0 / 0 0 / 0 Output: Stool 0 / 0 Hemodialysis Amount 3000 / 3000 Urine Amount (Catheter) 225 / 225 200 / 200 Indwelling Urethral Catheter 225 / 225 200 / 200 Other: Date of Last Bowel Movement 11/20/17 11/20/17 11/20/17 # Bowel Movements 0 0 # Incontinent Bowel Movements 0 - Urinary Catheter Management Indwelling Urethral Catheter Cath placed during this visit: no <Sumanth Cha - Last Filed: 11/23/17 11:21> Assessment and Plan - Assessment (1) Acute on chronic renal failure Code(s): N17.9 - Acute kidney failure, unspecified; N18.9 - Chronic kidney disease, unspecified Status: Acute Qualifiers: Acute renal failure type: unspecified Chronic kidney disease stage: unspecified stage Qualified Code(s): N17.9 - Acute kidney failure, unspecified ; N18.9 - Chronic kidney disease, unspecified Plan: Acute renal failure with a creatinine of 2.41 and potassium level of 7.0, with treatment repeat potassium level at 6.8 on day of consult. CHRISTINA most likely ATN with FeNa of 2.87 and urine osmolarity of 3.09 from possible cardiogenic shock and hypotension CT of abdomen with kidneys normal in size and shape. No evidence of mass or hydronephrosis. Creatinine on 07/18 at 0.89. Creatinine at 1.61 and urinary output of 650 ml /24 hours Complements are low and RACHID is positive ANCA, antib DNA DS pending Hemodialysis initiated yesterday 12/20 for resistant hyperkalemia and anasarca Maintain strict I+O Avoid nephrotoxins including NSAIDS, aminoglycosides, and IV contrast Monitor urinary output and BMP Hemodialysis today for fluid removal only as creatinine has improved Dialysis on hold after today <Karine Turcios - Last Filed: 11/22/17 11:25> - Assessment (1) Acute on chronic renal failure Code(s): N17.9 - Acute kidney failure, unspecified; N18.9 - Chronic kidney disease, unspecified Status: Acute Qualifiers: Acute renal failure type: unspecified Chronic kidney disease stage: unspecified stage Qualified Code(s): N17.9 - Acute kidney failure, unspecified ; N18.9 - Chronic kidney disease, unspecified - Attending Attestation Patient seen and examined, agree with above. HD again today, to remove more fluid. Follow the urine out put and BMP. HD as needed. <Sumanth Cha - Last Filed: 11/23/17 11:21>
--- NOTE | 2017-11-22 13:46 | P.PNPAL ---
Reason for Visit Reason for visit: a. To assist with evaluation and management of symptoms including: Altered mental status, edema b. To assist medical decision maker(s) with: better understanding of current medical conditions; weighing benefits/burdens of medical treatment options; making medical treatment decisions. Subjective Subjective/Interval History: Patient seen today to evaluate symptom management of altered mental status, edema. Patient remains with 1-2+ dependent edema. Currently undergoing dialysis, but likely will be on hold after today per nephrology notes. Creatinine down to 1.61 (0.89 baseline) with improving urine output 650 mL/24 hours. Blood pressure borderline, likely secondary to severe cardiac dysfunction. He aroused briefly while on sedation, became agitated, threw his feet over the side of the bed, thrashing, not responding to commands, nonpurposeful movement. In addition to the Versed drip, he was also given morphine 4 mg IV for agitation. . Family/Friend Interactions: Met with his mother, Angelina Medina, and his sister, Kaylie Gama, for clinical update and to discuss goals of care. Reviewed patient's poor clinical status, heart failure, acute kidney injury and confusion. Discussed his very poor prognosis. 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 She states that she is unable to make the decision to withdraw life support, as she had previously had to withdraw life support on her oldest daughter, but wanted to keep him a DO NOT RESUSCITATE status and allow him to pass naturally. She stated that if necessary she would progress to trach and PEG, however if he were medically extubated she would not want him reintubated. The family asked at this time for further time with which to make the decision, as the mother did seem to have a little bit of difficulty grasping the full nature of his prognosis and the daughter wished to have more time to discuss this with her at home. The daughter is a longtime certified solid waste facility operator and has a good grasp of the situation. She was able to reiterate to her mother of the conversation clearly, succinctly and with good insight. While the family would like to "believe for a miracle", they are aware that he is likely to pass on his own, given his poor cardiac status and would like it to be "natural". . Objective Vital Signs: Vital Signs 11/21/17 13:00 11/21/17 15:30 11/21/17 15:57 Temperature Pulse Rate 103 H 106 H Respiratory Rate 16 16 17 Blood Pressure 142/73 H Pulse Oximetry 97 99 11/21/17 15:58 11/21/17 15:59 11/21/17 16:00 Temperature 101.3 F H Pulse Rate 105 H 105 H 105 H Respiratory Rate 16 17 18 Blood Pressure 118/75 Pulse Oximetry 99 99 99 11/21/17 16:01 11/21/17 16:02 11/21/17 16:03 Temperature Pulse Rate 105 H 105 H 106 H Respiratory Rate 17 17 17 Blood Pressure Pulse Oximetry 98 98 98 11/21/17 16:04 11/21/17 16:05 11/21/17 16:06 Temperature Pulse Rate 104 H 104 H 104 H Respiratory Rate 17 17 16 Blood Pressure Pulse Oximetry 97 97 97 11/21/17 16:07 11/21/17 16:08 11/21/17 16:09 Temperature Pulse Rate 105 H 105 H 105 H Respiratory Rate 16 16 16 Blood Pressure Pulse Oximetry 97 97 97 11/21/17 16:10 11/21/17 16:11 11/21/17 16:12 Temperature Pulse Rate 106 H 105 H 104 H Respiratory Rate 16 17 17 Blood Pressure Pulse Oximetry 97 97 98 11/21/17 16:13 11/21/17 16:14 11/21/17 16:15 Temperature Pulse Rate 104 H 104 H 104 H Respiratory Rate 16 16 16 Blood Pressure Pulse Oximetry 97 97 98 11/21/17 16:16 11/21/17 16:17 11/21/17 16:18 Temperature Pulse Rate 104 H 104 H 104 H Respiratory Rate 16 16 16 Blood Pressure Pulse Oximetry 98 98 98 11/21/17 16:19 11/21/17 16:20 11/21/17 16:21 Temperature Pulse Rate 104 H 104 H 104 H Respiratory Rate 16 16 16 Blood Pressure Pulse Oximetry 98 98 98 11/21/17 16:22 11/21/17 16:23 11/21/17 16:24 Temperature Pulse Rate 104 H 104 H 104 H Respiratory Rate 16 16 16 Blood Pressure Pulse Oximetry 98 98 98 11/21/17 16:25 11/21/17 16:26 11/21/17 16:27 Temperature Pulse Rate 103 H 104 H 104 H Respiratory Rate 16 16 16 Blood Pressure Pulse Oximetry 98 98 98 11/21/17 16:28 11/21/17 16:29 11/21/17 16:30 Temperature Pulse Rate 104 H 104 H 104 H Respiratory Rate 16 16 16 Blood Pressure Pulse Oximetry 98 98 98 11/21/17 16:31 11/21/17 16:32 11/21/17 16:33 Temperature Pulse Rate 104 H 104 H 104 H Respiratory Rate 16 16 16 Blood Pressure Pulse Oximetry 98 99 98 11/21/17 16:34 11/21/17 16:35 11/21/17 16:36 Temperature Pulse Rate 103 H 103 H 104 H Respiratory Rate 16 16 16 Blood Pressure Pulse Oximetry 98 98 98 11/21/17 16:37 11/21/17 16:38 11/21/17 16:39 Temperature Pulse Rate 104 H 104 H 104 H Respiratory Rate 16 16 16 Blood Pressure Pulse Oximetry 99 98 98 11/21/17 16:40 11/21/17 16:41 11/21/17 16:42 Temperature Pulse Rate 104 H 104 H 104 H Respiratory Rate 16 16 16 Blood Pressure Pulse Oximetry 98 98 98 11/21/17 16:43 11/21/17 16:44 11/21/17 16:45 Temperature Pulse Rate 104 H 103 H 103 H Respiratory Rate 16 16 16 Blood Pressure Pulse Oximetry 99 99 99 11/21/17 20:00 11/21/17 20:05 11/21/17 20:06 Temperature 99.3 F Pulse Rate 105 H 102 H 102 H Respiratory Rate 16 16 Blood Pressure 111/74 Pulse Oximetry 100 99 100 11/21/17 20:07 11/21/17 20:08 11/21/17 20:09 Temperature Pulse Rate 102 H 103 H 103 H Respiratory Rate 16 16 16 Blood Pressure Pulse Oximetry 99 99 99 11/21/17 20:10 11/21/17 20:11 11/21/17 20:12 Temperature Pulse Rate 102 H 104 H 103 H Respiratory Rate 16 16 16 Blood Pressure Pulse Oximetry 99 99 99 11/21/17 20:13 11/21/17 20:14 11/21/17 20:15 Temperature Pulse Rate 103 H 103 H 104 H Respiratory Rate 17 16 16 Blood Pressure Pulse Oximetry 99 100 99 11/21/17 20:16 11/21/17 20:17 11/21/17 20:18 Temperature Pulse Rate 104 H 103 H 104 H Respiratory Rate 16 16 16 Blood Pressure Pulse Oximetry 99 99 99 11/21/17 20:19 11/21/17 20:20 11/21/17 20:21 Temperature Pulse Rate 103 H 103 H 103 H Respiratory Rate 16 16 16 Blood Pressure Pulse Oximetry 99 99 99 11/21/17 20:22 11/21/17 20:23 11/21/17 20:24 Temperature Pulse Rate 103 H 104 H 102 H Respiratory Rate 16 16 16 Blood Pressure Pulse Oximetry 99 99 99 11/21/17 20:25 11/21/17 20:26 11/21/17 20:27 Temperature Pulse Rate 102 H 101 H 101 H Respiratory Rate 16 16 16 Blood Pressure Pulse Oximetry 99 99 99 11/21/17 20:28 11/21/17 20:29 11/21/17 20:30 Temperature Pulse Rate 101 H 102 H 101 H Respiratory Rate 16 16 16 Blood Pressure Pulse Oximetry 99 99 99 11/21/17 20:31 11/21/17 20:32 11/21/17 20:33 Temperature Pulse Rate 102 H 102 H 102 H Respiratory Rate 16 17 16 Blood Pressure Pulse Oximetry 100 100 100 11/21/17 20:34 11/21/17 20:35 11/21/17 20:36 Temperature Pulse Rate 103 H 108 H 112 H Respiratory Rate 16 19 16 Blood Pressure Pulse Oximetry 100 100 100 11/21/17 20:37 11/21/17 20:38 11/21/17 20:39 Temperature Pulse Rate 116 H 115 H 114 H Respiratory Rate 16 16 16 Blood Pressure Pulse Oximetry 100 100 100 11/21/17 20:40 11/21/17 20:41 11/21/17 20:42 Temperature Pulse Rate 112 H 112 H 109 H Respiratory Rate 16 16 16 Blood Pressure Pulse Oximetry 100 100 100 11/21/17 20:43 11/21/17 20:44 11/21/17 20:45 Temperature Pulse Rate 109 H 108 H 107 H Respiratory Rate 17 16 16 Blood Pressure Pulse Oximetry 100 100 100 11/21/17 20:46 11/21/17 20:47 11/21/17 20:48 Temperature Pulse Rate 106 H 106 H 106 H Respiratory Rate 16 16 16 Blood Pressure Pulse Oximetry 100 100 100 11/21/17 20:49 11/21/17 20:50 11/21/17 20:51 Temperature Pulse Rate 105 H 105 H 106 H Respiratory Rate 17 17 17 Blood Pressure Pulse Oximetry 100 100 100 11/21/17 20:52 11/21/17 20:53 11/21/17 20:54 Temperature Pulse Rate 106 H 105 H 105 H Respiratory Rate 16 17 16 Blood Pressure Pulse Oximetry 100 99 99 11/21/17 20:58 11/21/17 23:18 11/21/17 23:19 Temperature Pulse Rate 95 H 95 H Respiratory Rate 16 16 16 Blood Pressure Pulse Oximetry 99 100 100 11/21/17 23:20 11/21/17 23:21 11/21/17 23:22 Temperature Pulse Rate 97 H 95 H 93 H Respiratory Rate 16 16 16 Blood Pressure Pulse Oximetry 100 99 100 11/21/17 23:23 11/21/17 23:24 11/21/17 23:25 Temperature Pulse Rate 93 H 94 H 94 H Respiratory Rate 16 16 16 Blood Pressure Pulse Oximetry 99 100 100 11/21/17 23:26 11/21/17 23:27 11/21/17 23:28 Temperature Pulse Rate 96 H 94 H 95 H Respiratory Rate 16 16 16 Blood Pressure Pulse Oximetry 98 99 100 11/21/17 23:29 11/21/17 23:30 11/21/17 23:31 Temperature Pulse Rate 94 H 95 H 94 H Respiratory Rate 16 16 16 Blood Pressure Pulse Oximetry 100 100 100 11/21/17 23:32 11/21/17 23:33 11/21/17 23:34 Temperature Pulse Rate 93 H 93 H 94 H Respiratory Rate 16 16 16 Blood Pressure Pulse Oximetry 100 100 100 11/21/17 23:35 11/21/17 23:36 11/21/17 23:37 Temperature Pulse Rate 95 H 94 H 94 H Respiratory Rate 15 16 16 Blood Pressure Pulse Oximetry 99 100 100 11/21/17 23:38 11/21/17 23:39 11/21/17 23:40 Temperature Pulse Rate 93 H 94 H 93 H Respiratory Rate 16 16 16 Blood Pressure Pulse Oximetry 100 100 100 11/21/17 23:41 11/21/17 23:42 11/21/17 23:43 Temperature Pulse Rate 93 H 93 H 93 H Respiratory Rate 16 16 16 Blood Pressure Pulse Oximetry 99 100 99 11/21/17 23:44 11/21/17 23:45 11/21/17 23:46 Temperature Pulse Rate 93 H 93 H 93 H Respiratory Rate 16 16 16 Blood Pressure Pulse Oximetry 100 100 100 11/21/17 23:47 11/21/17 23:48 11/21/17 23:49 Temperature Pulse Rate 93 H 92 H 92 H Respiratory Rate 16 16 16 Blood Pressure Pulse Oximetry 100 100 100 11/21/17 23:50 11/21/17 23:51 11/21/17 23:52 Temperature Pulse Rate 92 H 92 H 92 H Respiratory Rate 16 16 16 Blood Pressure Pulse Oximetry 100 99 99 11/21/17 23:53 11/21/17 23:54 11/21/17 23:55 Temperature Pulse Rate 91 H 92 H 92 H Respiratory Rate 16 16 16 Blood Pressure Pulse Oximetry 99 100 100 11/21/17 23:56 11/21/17 23:57 11/21/17 23:58 Temperature Pulse Rate 92 H 92 H 92 H Respiratory Rate 16 16 16 Blood Pressure Pulse Oximetry 100 100 100 11/21/17 23:59 11/22/17 00:00 11/22/17 00:01 Temperature 98.9 F Pulse Rate 92 H 92 H 92 H Respiratory Rate 16 16 16 Blood Pressure 122/60 Pulse Oximetry 100 100 100 11/22/17 00:02 11/22/17 00:03 11/22/17 00:04 Temperature Pulse Rate 92 H 91 H 91 H Respiratory Rate 16 16 16 Blood Pressure Pulse Oximetry 100 100 100 11/22/17 00:05 11/22/17 00:06 11/22/17 00:08 Temperature Pulse Rate 91 H 92 H Respiratory Rate 16 16 16 Blood Pressure Pulse Oximetry 100 99 100 11/22/17 03:54 11/22/17 03:55 11/22/17 03:56 Temperature Pulse Rate 83 83 83 Respiratory Rate 16 16 16 Blood Pressure Pulse Oximetry 99 100 100 11/22/17 03:57 11/22/17 03:58 11/22/17 03:59 Temperature Pulse Rate 82 81 82 Respiratory Rate 16 16 16 Blood Pressure Pulse Oximetry 99 100 98 11/22/17 04:00 11/22/17 04:01 11/22/17 04:02 Temperature 97.8 F Pulse Rate 83 82 82 Respiratory Rate 16 16 16 Blood Pressure 103/75 Pulse Oximetry 100 100 100 11/22/17 04:03 11/22/17 04:04 11/22/17 04:05 Temperature Pulse Rate 82 83 83 Respiratory Rate 16 16 16 Blood Pressure Pulse Oximetry 99 100 100 11/22/17 04:06 11/22/17 04:07 11/22/17 04:08 Temperature Pulse Rate 83 84 82 Respiratory Rate 16 16 16 Blood Pressure Pulse Oximetry 100 84 L 92 L 11/22/17 04:09 11/22/17 04:10 11/22/17 04:11 Temperature Pulse Rate 83 83 84 Respiratory Rate 16 16 16 Blood Pressure Pulse Oximetry 87 L 96 100 11/22/17 04:12 11/22/17 04:13 11/22/17 04:14 Temperature Pulse Rate 82 84 87 Respiratory Rate 16 16 16 Blood Pressure Pulse Oximetry 97 98 96 11/22/17 04:15 11/22/17 04:16 11/22/17 04:17 Temperature Pulse Rate 86 86 86 Respiratory Rate 17 16 16 Blood Pressure Pulse Oximetry 99 99 100 11/22/17 04:18 11/22/17 04:19 11/22/17 04:20 Temperature Pulse Rate 85 84 83 Respiratory Rate 16 16 16 Blood Pressure Pulse Oximetry 100 100 100 11/22/17 04:21 11/22/17 04:22 11/22/17 04:23 Temperature Pulse Rate 83 83 81 Respiratory Rate 16 16 16 Blood Pressure Pulse Oximetry 100 100 100 11/22/17 04:24 11/22/17 04:25 11/22/17 04:26 Temperature Pulse Rate 83 84 84 Respiratory Rate 16 16 16 Blood Pressure Pulse Oximetry 100 100 100 11/22/17 04:27 11/22/17 04:28 11/22/17 04:29 Temperature Pulse Rate 83 83 82 Respiratory Rate 16 16 16 Blood Pressure Pulse Oximetry 100 100 100 11/22/17 04:30 11/22/17 04:31 11/22/17 04:32 Temperature Pulse Rate 82 83 83 Respiratory Rate 16 16 16 Blood Pressure Pulse Oximetry 100 100 100 11/22/17 04:33 11/22/17 04:34 11/22/17 04:35 Temperature Pulse Rate 84 84 92 H Respiratory Rate 16 16 18 Blood Pressure Pulse Oximetry 100 99 98 11/22/17 04:36 11/22/17 04:37 11/22/17 04:38 Temperature Pulse Rate 92 H 92 H 91 H Respiratory Rate 16 16 16 Blood Pressure Pulse Oximetry 97 98 100 11/22/17 04:39 11/22/17 04:40 11/22/17 04:41 Temperature Pulse Rate 90 90 89 Respiratory Rate 16 16 16 Blood Pressure Pulse Oximetry 100 99 100 11/22/17 04:42 11/22/17 07:03 11/22/17 08:00 Temperature 97.9 F Pulse Rate 87 98 H Respiratory Rate 16 17 16 Blood Pressure 139/103 H Pulse Oximetry 100 100 100 11/22/17 09:40 11/22/17 12:00 Temperature 97.7 F Pulse Rate 86 Respiratory Rate 16 16 Blood Pressure 91/65 L Pulse Oximetry 100 99 Intake & Output 11/21/17 11/22/17 11/22/17 18:59 06:59 18:59 Intake Total 450 / 450 205 / 205 150 / 150 Output Total 450 / 450 200 / 200 3000 / 3000 Balance 0 / 0 5 / 5 -2850 / -2850 Weight 145 lb 8.081 oz Intake: IV 450 / 450 205 / 205 150 / 150 Versed Inj 50 mg In 50 ml @ 2 50 / 50 50 / 50 50 / 50 MG/HR 2 mls/hr IV.CONT TITRATE PRN Rx#:[id number] Primacor Inj 20 MG In NS Inj 80 100 / 100 100 / 100 ML @ 0.5 MCG/KG/MIN 10.5 mls/ hr IV.CONT .[id number] [facility] Rx#: [id number] KCl 10 mEq Premix Inj 10 meq In 300 / 300 100 ml @ 100 mls/hr IV.SIG Q1H [facility] Rx#:[id number] Potassium Phosphate Inj 15 MMOL 155 / 155 In NS Inj 150 ML @ 38.75 mls/ hr IV.SIG ONCE ONE Rx#:[id number] Oral 0 / 0 Tube Feeding 0 / 0 Output: Hemodialysis Amount 3000 / 3000 Urine Amount (Catheter) 450 / 450 200 / 200 Indwelling Urethral Catheter 450 / 450 200 / 200 Other: Date of Last Bowel Movement 11/21/17 11/20/17 11/20/17 # Bowel Movements 1 Physical Exam: CONSTITUTIONAL/GENERAL: This is an adequately nourished patient, intubated, sedated, in no apparent distress. TUBES/LINES/DRAINS: Right IJ Vas-Cath, right subclavian central line, right radial arterial line, ETT, Smith. SKIN: No jaundice, rashes, or lesions. No wounds seen anteriorly. Skin temperature appropriate. Not diaphoretic. HEAD: Atraumatic. Normocephalic. EYES: Pupils equal and round and sluggishly reactive. No scleral icterus. No injection or drainage. Fundi not examined. ENT: Nose without bleeding or purulent drainage. Orally intubated. NECK: Trachea midline. Supple, nontender. No palpable thyroid enlargement or nodularity. Moderate JVD. CARDIOVASCULAR: S1, S2, S3. Irregular rhythm, controlled rate without gallops, or rubs. Soft 1/6 systolic ejection murmur. No JVD. Peripheral pulses symmetric. RESPIRATORY/CHEST: Symmetric, unlabored respirations. Clear, diminished to auscultation. Breath sounds equal bilaterally. No wheezes, rales, or rhonchi. GASTROINTESTINAL: Abdomen soft, nondistended. No hepato-splenomegaly, or palpable masses. Bowel sounds hypoactive. GENITOURINARY: Without palpable bladder distension. Smith catheter in place draining dark yellowish red urine in small quantities. MUSCULOSKELETAL: Extremities without clubbing or cyanosis, 2+ dependent edema. No joint tenderness or effusion noted. No mottling or clubbing. LYMPHATICS: No palpable cervical or supraclavicular adenopathy. NEUROLOGICAL: Sedated. PSYCHIATRIC: Sedated. . Diagnostic Tests Laboratory: Laboratory Results - last 72 hr 11/19/17 11/19/17 11/19/17 06:00 06:35 11:46 WBC RBC Hgb Hct MCV MCH MCHC RDW Plt Count MPV Prelim Diff (Auto) Neut % (Auto) Lymph % (Auto) Drew % (Auto) Eos % (Auto) Baso % (Auto) Neut # (Auto) Lymph # (Auto) Drew # (Auto) Eos # (Auto) Baso # (Auto) WBC Differential Diff Scan Seg Neuts % (Manual) Band Neuts % (Manual) Lymphocytes % (Manual) Monocytes % (Manual) Abs Neuts (Manual) Differential Comment Platelet Estimate Platelet Morphology Ovalocytes Acanthocytes (Spur) Puncture Site Patient Temperature O2 Saturation ABG pH ABG pCO2 ABG pO2 ABG HCO3 ABG O2 Content ABG Base Excess ABG Methemoglobin Hemoglobin Carboxyhemoglobin O2 Delivery Device Vent Setting Inspired O2 Critical Value Sodium Potassium Chloride Carbon Dioxide Anion Gap BUN Creatinine Estimated GFR POC Glucose Random Glucose Lactic Acid Calcium Phosphorus Magnesium Total Bilirubin AST ALT Alkaline Phosphatase Troponin I B-Natriuretic Peptide Total Protein Albumin Urine Color [place] Urine Clarity Cloudy H Urine pH 5.0 Ur Specific [place] 1.019 Urine Protein 500 or greater Urine Glucose (UA) Negative Urine Ketones Negative Urine Occult Blood Large H Urine Nitrate Negative Urine Bilirubin Negative Urine Urobilinogen 4 or greater Ur Leukocyte Esterase Negative Urine RBC 38 H Urine WBC 18 H Ur Squamous Epith Cells <1 Amorphous Sediment Few H Urine Bacteria Few H Hyaline Casts 6 Urine Mucus Few H Micro UA Comment Cath-culture ind Urine Culture Comments Cath-cult indicated Urine Osmolality Ur Random Creatinine Ur Random Sodium Stl C.difficile Tox PCR Negative St C. diff Tox Epid 027 Negative RACHID Screen RACHID Titer RACHID Pattern RACHID Interpretation Complement C3 Complement C4 Hepatitis A IgM Ab Nonreactive Hep Bs Antigen Nonreactive Hep B Core IgM Ab Nonreactive Hep C IgG Ab Reactive H 11/19/17 11/19/17 11/19/17 14:55 16:15 16:15 WBC RBC Hgb Hct MCV MCH MCHC RDW Plt Count MPV Prelim Diff (Auto) Neut % (Auto) Lymph % (Auto) Drew % (Auto) Eos % (Auto) Baso % (Auto) Neut # (Auto) Lymph # (Auto) Drew # (Auto) Eos # (Auto) Baso # (Auto) WBC Differential Diff Scan Seg Neuts % (Manual) Band Neuts % (Manual) Lymphocytes % (Manual) Monocytes % (Manual) Abs Neuts (Manual) Differential Comment Platelet Estimate Platelet Morphology Ovalocytes Acanthocytes (Spur) Puncture Site Patient Temperature O2 Saturation ABG pH ABG pCO2 ABG pO2 ABG HCO3 ABG O2 Content ABG Base Excess ABG Methemoglobin Hemoglobin Carboxyhemoglobin O2 Delivery Device Vent Setting Inspired O2 Critical Value Sodium Potassium Chloride Carbon Dioxide Anion Gap BUN Creatinine Estimated GFR POC Glucose Random Glucose Lactic Acid 2.3 H Calcium Phosphorus Magnesium Total Bilirubin AST ALT Alkaline Phosphatase Troponin I 0.26 H B-Natriuretic Peptide Total Protein Albumin Urine Color Urine Clarity Urine pH Ur Specific [place] Urine Protein Urine Glucose (UA) Urine Ketones Urine Occult Blood Urine Nitrate Urine Bilirubin Urine Urobilinogen Ur Leukocyte Esterase Urine RBC Urine WBC Ur Squamous Epith Cells Amorphous Sediment Urine Bacteria Hyaline Casts Urine Mucus Micro UA Comment Urine Culture Comments Urine Osmolality Ur Random Creatinine Ur Random Sodium Stl C.difficile Tox PCR St C. diff Tox Epid 027 RACHID Screen Pos H RACHID Titer 1:640 H RACHID Pattern Diffuse H RACHID Interpretation Complement C3 Complement C4 Hepatitis A IgM Ab Hep Bs Antigen Hep B Core IgM Ab Hep C IgG Ab 11/19/17 11/19/17 11/19/17 16:45 17:40 20:30 WBC RBC Hgb Hct MCV MCH MCHC RDW Plt Count MPV Prelim Diff (Auto) Neut % (Auto) Lymph % (Auto) Drew % (Auto) Eos % (Auto) Baso % (Auto) Neut # (Auto) Lymph # (Auto) Drew # (Auto) Eos # (Auto) Baso # (Auto) WBC Differential Diff Scan Seg Neuts % (Manual) Band Neuts % (Manual) Lymphocytes % (Manual) Monocytes % (Manual) Abs Neuts (Manual) Differential Comment Platelet Estimate Platelet Morphology Ovalocytes Acanthocytes (Spur) Puncture Site Art line Patient Temperature 98.6 O2 Saturation 96 ABG pH 7.61 H* ABG pCO2 24 L* ABG pO2 104 ABG HCO3 24 ABG O2 Content 18.0 ABG Base Excess 2.5 H ABG Methemoglobin 1.4 Hemoglobin 13.3 Carboxyhemoglobin 1.2 O2 Delivery Device Ventilator Vent Setting Prvc/ac Inspired O2 40 Critical Value Yes Sodium Potassium Chloride Carbon Dioxide Anion Gap BUN Creatinine Estimated GFR POC Glucose 108 101 Random Glucose Lactic Acid Calcium Phosphorus Magnesium Total Bilirubin AST ALT Alkaline Phosphatase Troponin I B-Natriuretic Peptide Total Protein Albumin Urine Color Urine Clarity Urine pH Ur Specific [place] Urine Protein Urine Glucose (UA) Urine Ketones Urine Occult Blood Urine Nitrate Urine Bilirubin Urine Urobilinogen Ur Leukocyte Esterase Urine RBC Urine WBC Ur Squamous Epith Cells Amorphous Sediment Urine Bacteria Hyaline Casts Urine Mucus Micro UA Comment Urine Culture Comments Urine Osmolality Ur Random Creatinine Ur Random Sodium Stl C.difficile Tox PCR St C. diff Tox Epid 027 RACHID Screen RACHID Titer RACHID Pattern RACHID Interpretation Complement C3 Complement C4 Hepatitis A IgM Ab Hep Bs Antigen Hep B Core IgM Ab Hep C IgG Ab 11/19/17 11/19/17 11/19/17 20:45 20:45 20:45 WBC RBC Hgb Hct MCV MCH MCHC RDW Plt Count MPV Prelim Diff (Auto) Neut % (Auto) Lymph % (Auto) Drew % (Auto) Eos % (Auto) Baso % (Auto) Neut # (Auto) Lymph # (Auto) Drew # (Auto) Eos # (Auto) Baso # (Auto) WBC Differential Diff Scan Seg Neuts % (Manual) Band Neuts % (Manual) Lymphocytes % (Manual) Monocytes % (Manual) Abs Neuts (Manual) Differential Comment Platelet Estimate Platelet Morphology Ovalocytes Acanthocytes (Spur) Puncture Site Patient Temperature O2 Saturation ABG pH ABG pCO2 ABG pO2 ABG HCO3 ABG O2 Content ABG Base Excess ABG Methemoglobin Hemoglobin Carboxyhemoglobin O2 Delivery Device Vent Setting Inspired O2 Critical Value Sodium Potassium Chloride Carbon Dioxide Anion Gap BUN Creatinine Estimated GFR POC Glucose Random Glucose Lactic Acid Calcium Phosphorus Magnesium Total Bilirubin AST ALT Alkaline Phosphatase Troponin I B-Natriuretic Peptide Total Protein Albumin Urine Color Urine Clarity Urine pH Ur Specific [place] Urine Protein Urine Glucose (UA) Urine Ketones Urine Occult Blood Urine Nitrate Urine Bilirubin Urine Urobilinogen Ur Leukocyte Esterase Urine RBC Urine WBC Ur Squamous Epith Cells Amorphous Sediment Urine Bacteria Hyaline Casts Urine Mucus Micro UA Comment Urine Culture Comments Urine Osmolality 309 Ur Random Creatinine 42 Ur Random Sodium 84 Cancelled Stl C.difficile Tox PCR St C. diff Tox Epid 027 RACHID Screen RACHID Titer RACHID Pattern RACHID Interpretation Complement C3 Complement C4 Hepatitis A IgM Ab Hep Bs Antigen Hep B Core IgM Ab Hep C IgG Ab 11/20/17 11/20/17 11/20/17 04:50 04:50 04:50 WBC 6.4 RBC 4.69 Hgb 13.6 D Hct 41.5 MCV 88.5 D MCH 29.0 MCHC 32.7 RDW 16.2 Plt Count 87 L MPV 8.7 Prelim Diff (Auto) Slide review pending Neut % (Auto) 84.3 H Lymph % (Auto) 7.9 L Drew % (Auto) 7.4 Eos % (Auto) 0.2 Baso % (Auto) 0.2 Neut # (Auto) 5.4 Lymph # (Auto) 0.5 L Drew # (Auto) 0.5 Eos # (Auto) 0.0 Baso # (Auto) 0.0 WBC Differential Manual diff final Diff Scan Seg Neuts % (Manual) 81 H Band Neuts % (Manual) 14 H Lymphocytes % (Manual) 2 L Monocytes % (Manual) 3 Abs Neuts (Manual) 6.1 Differential Comment . Platelet Estimate Low L Platelet Morphology Enlarged H Ovalocytes 1+ H Acanthocytes (Spur) Occ H Puncture Site Patient Temperature O2 Saturation ABG pH ABG pCO2 ABG pO2 ABG HCO3 ABG O2 Content ABG Base Excess ABG Methemoglobin Hemoglobin Carboxyhemoglobin O2 Delivery Device Vent Setting Inspired O2 Critical Value Sodium 144 Potassium 3.4 L D Chloride 109 H Carbon Dioxide 28.4 D Anion Gap 7 BUN 44 H Creatinine 2.07 H Estimated GFR 40 L POC Glucose Random Glucose 110 H Lactic Acid 1.1 Calcium 7.8 L Phosphorus 2.8 Magnesium 2.0 D Total Bilirubin 1.8 H AST 274 H ALT 130 H Alkaline Phosphatase 59 Troponin I B-Natriuretic Peptide Total Protein 6.7 D Albumin 2.5 L Urine Color Urine Clarity Urine pH Ur Specific [place] Urine Protein Urine Glucose (UA) Urine Ketones Urine Occult Blood Urine Nitrate Urine Bilirubin Urine Urobilinogen Ur Leukocyte Esterase Urine RBC Urine WBC Ur Squamous Epith Cells Amorphous Sediment Urine Bacteria Hyaline Casts Urine Mucus Micro UA Comment Urine Culture Comments Urine Osmolality Ur Random Creatinine Ur Random Sodium Stl C.difficile Tox PCR St C. diff Tox Epid 027 RACHID Screen RACHID Titer RACHID Pattern RACHID Interpretation Complement C3 42 L Complement C4 6 L Hepatitis A IgM Ab Hep Bs Antigen Hep B Core IgM Ab Hep C IgG Ab 11/20/17 11/20/17 11/20/17 04:50 07:38 11:45 WBC RBC Hgb Hct MCV MCH MCHC RDW Plt Count MPV Prelim Diff (Auto) Neut % (Auto) Lymph % (Auto) Drew % (Auto) Eos % (Auto) Baso % (Auto) Neut # (Auto) Lymph # (Auto) Drew # (Auto) Eos # (Auto) Baso # (Auto) WBC Differential Diff Scan Seg Neuts % (Manual) Band Neuts % (Manual) Lymphocytes % (Manual) Monocytes % (Manual) Abs Neuts (Manual) Differential Comment Platelet Estimate Platelet Morphology Ovalocytes Acanthocytes (Spur) Puncture Site Patient Temperature O2 Saturation ABG pH ABG pCO2 ABG pO2 ABG HCO3 ABG O2 Content ABG Base Excess ABG Methemoglobin Hemoglobin Carboxyhemoglobin O2 Delivery Device Vent Setting Inspired O2 Critical Value Sodium Potassium Chloride Carbon Dioxide Anion Gap BUN Creatinine Estimated GFR POC Glucose 96 91 Random Glucose Lactic Acid Calcium Phosphorus Magnesium Total Bilirubin AST ALT Alkaline Phosphatase Troponin I B-Natriuretic Peptide 2134 H Total Protein Albumin Urine Color Urine Clarity Urine pH Ur Specific Wayan Urine Protein Urine Glucose (UA) Urine Ketones Urine Occult Blood Urine Nitrate Urine Bilirubin Urine Urobilinogen Ur Leukocyte Esterase Urine RBC Urine WBC Ur Squamous Epith Cells Amorphous Sediment Urine Bacteria Hyaline Casts Urine Mucus Micro UA Comment Urine Culture Comments Urine Osmolality Ur Random Creatinine Ur Random Sodium Stl C.difficile Tox PCR St C. diff Tox Epid 027 RACHID Screen RACHID Titer RACHID Pattern RACHID Interpretation Complement C3 Complement C4 Hepatitis A IgM Ab Hep Bs Antigen Hep B Core IgM Ab Hep C IgG Ab 11/20/17 11/20/17 11/20/17 15:36 19:32 23:43 WBC RBC Hgb Hct MCV MCH MCHC RDW Plt Count MPV Prelim Diff (Auto) Neut % (Auto) Lymph % (Auto) Drew % (Auto) Eos % (Auto) Baso % (Auto) Neut # (Auto) Lymph # (Auto) Drew # (Auto) Eos # (Auto) Baso # (Auto) WBC Differential Diff Scan Seg Neuts % (Manual) Band Neuts % (Manual) Lymphocytes % (Manual) Monocytes % (Manual) Abs Neuts (Manual) Differential Comment Platelet Estimate Platelet Morphology Ovalocytes Acanthocytes (Spur) Puncture Site Patient Temperature O2 Saturation ABG pH ABG pCO2 ABG pO2 ABG HCO3 ABG O2 Content ABG Base Excess ABG Methemoglobin Hemoglobin Carboxyhemoglobin O2 Delivery Device Vent Setting Inspired O2 Critical Value Sodium Potassium Chloride Carbon Dioxide Anion Gap BUN Creatinine Estimated GFR POC Glucose 90 90 94 Random Glucose Lactic Acid Calcium Phosphorus Magnesium Total Bilirubin AST ALT Alkaline Phosphatase Troponin I B-Natriuretic Peptide Total Protein Albumin Urine Color Urine Clarity Urine pH Ur Specific Way[place] Urine Protein Urine Glucose (UA) Urine Ketones Urine Occult Blood Urine Nitrate Urine Bilirubin Urine Urobilinogen Ur Leukocyte Esterase Urine RBC Urine WBC Ur Squamous Epith Cells Amorphous Sediment Urine Bacteria Hyaline Casts Urine Mucus Micro UA Comment Urine Culture Comments Urine Osmolality Ur Random Creatinine Ur Random Sodium Stl C.difficile Tox PCR St C. diff Tox Epid 027 RACHID Screen RACHID Titer RACHID Pattern RACHID Interpretation Complement C3 Complement C4 Hepatitis A IgM Ab Hep Bs Antigen Hep B Core IgM Ab Hep C IgG Ab 11/21/17 11/21/17 11/21/17 03:54 03:54 05:16 WBC 4.1 RBC 4.83 Hgb 14.1 Hct 42.8 MCV 88.6 MCH 29.1 MCHC 32.8 RDW 16.8 Plt Count 73 L MPV 9.2 Prelim Diff (Auto) Slide review pending Neut % (Auto) 83.7 H Lymph % (Auto) 6.4 L Drew % (Auto) 5.1 Eos % (Auto) 4.3 H Baso % (Auto) 0.5 Neut # (Auto) 3.4 Lymph # (Auto) 0.3 L Drew # (Auto) 0.2 Eos # (Auto) 0.2 Baso # (Auto) 0.0 WBC Differential . Diff Scan Seg Neuts % (Manual) Band Neuts % (Manual) Lymphocytes % (Manual) Monocytes % (Manual) Abs Neuts (Manual) Differential Comment . Platelet Estimate Low L Platelet Morphology Enlarged H Ovalocytes Acanthocytes (Spur) Puncture Site Patient Temperature O2 Saturation ABG pH ABG pCO2 ABG pO2 ABG HCO3 ABG O2 Content ABG Base Excess ABG Methemoglobin Hemoglobin Carboxyhemoglobin O2 Delivery Device Vent Setting Inspired O2 Critical Value Sodium 143 Potassium 2.9 L* Chloride 106 Carbon Dioxide 29.9 Anion Gap 7 BUN 31 H Creatinine 1.66 H Estimated GFR 52 L POC Glucose 94 Random Glucose 101 Lactic Acid Calcium 8.2 L Phosphorus 1.5 L D Magnesium 1.8 Total Bilirubin 2.0 H AST 183 H ALT 100 H Alkaline Phosphatase 54 Troponin I B-Natriuretic Peptide Total Protein 6.4 Albumin 2.5 L Urine Color Urine Clarity Urine pH Ur Specific Way[place] Urine Protein Urine Glucose (UA) Urine Ketones Urine Occult Blood Urine Nitrate Urine Bilirubin Urine Urobilinogen Ur Leukocyte Esterase Urine RBC Urine WBC Ur Squamous Epith Cells Amorphous Sediment Urine Bacteria Hyaline Casts Urine Mucus Micro UA Comment Urine Culture Comments Urine Osmolality Ur Random Creatinine Ur Random Sodium Stl C.difficile Tox PCR St C. diff Tox Epid 027 RACHID Screen RACHID Titer RACHID Pattern RACHID Interpretation Complement C3 Complement C4 Hepatitis A IgM Ab Hep Bs Antigen Hep B Core IgM Ab Hep C IgG Ab 11/21/17 11/21/17 11/21/17 10:20 13:02 17:59 WBC RBC Hgb Hct MCV MCH MCHC RDW Plt Count MPV Prelim Diff (Auto) Neut % (Auto) Lymph % (Auto) Drew % (Auto) Eos % (Auto) Baso % (Auto) Neut # (Auto) Lymph # (Auto) Drew # (Auto) Eos # (Auto) Baso # (Auto) WBC Differential Diff Scan Seg Neuts % (Manual) Band Neuts % (Manual) Lymphocytes % (Manual) Monocytes % (Manual) Abs Neuts (Manual) Differential Comment Platelet Estimate Platelet Morphology Ovalocytes Acanthocytes (Spur) Puncture Site Patient Temperature O2 Saturation ABG pH ABG pCO2 ABG pO2 ABG HCO3 ABG O2 Content ABG Base Excess ABG Methemoglobin Hemoglobin Carboxyhemoglobin O2 Delivery Device Vent Setting Inspired O2 Critical Value Sodium Potassium Chloride Carbon Dioxide Anion Gap BUN Creatinine Estimated GFR POC Glucose 77 77 81 Random Glucose Lactic Acid Calcium Phosphorus Magnesium Total Bilirubin AST ALT Alkaline Phosphatase Troponin I B-Natriuretic Peptide Total Protein Albumin Urine Color Urine Clarity Urine pH Ur Specific Way[place] Urine Protein Urine Glucose (UA) Urine Ketones Urine Occult Blood Urine Nitrate Urine Bilirubin Urine Urobilinogen Ur Leukocyte Esterase Urine RBC Urine WBC Ur Squamous Epith Cells Amorphous Sediment Urine Bacteria Hyaline Casts Urine Mucus Micro UA Comment Urine Culture Comments Urine Osmolality Ur Random Creatinine Ur Random Sodium Stl C.difficile Tox PCR St C. diff Tox Epid 027 RACHID Screen RACHID Titer RACHID Pattern RACHID Interpretation Complement C3 Complement C4 Hepatitis A IgM Ab Hep Bs Antigen Hep B Core IgM Ab Hep C IgG Ab 11/22/17 11/22/17 11/22/17 04:09 04:09 10:50 WBC 5.9 RBC 5.03 Hgb 14.6 Hct 44.7 MCV 88.9 MCH 29.0 MCHC 32.6 RDW 16.2 Plt Count 76 L MPV 9.4 Prelim Diff (Auto) Slide review pending Neut % (Auto) 85.5 H Lymph % (Auto) 7.6 L Drew % (Auto) 5.6 Eos % (Auto) 1.1 Baso % (Auto) 0.2 Neut # (Auto) 5.0 Lymph # (Auto) 0.4 L Drew # (Auto) 0.3 Eos # (Auto) 0.1 Baso # (Auto) 0.0 WBC Differential . Diff Scan Auto diff confirmed Seg Neuts % (Manual) Band Neuts % (Manual) Lymphocytes % (Manual) Monocytes % (Manual) Abs Neuts (Manual) Differential Comment . Platelet Estimate Low L Platelet Morphology Enlarged H Ovalocytes Acanthocytes (Spur) Occ H Puncture Site Patient Temperature O2 Saturation ABG pH ABG pCO2 ABG pO2 ABG HCO3 ABG O2 Content ABG Base Excess ABG Methemoglobin Hemoglobin Carboxyhemoglobin O2 Delivery Device Vent Setting Inspired O2 Critical Value Sodium 142 Potassium 3.6 Chloride 107 Carbon Dioxide 27.7 Anion Gap 7 BUN 35 H Creatinine 1.61 H Estimated GFR 54 L POC Glucose 86 Random Glucose 99 Lactic Acid Calcium 7.8 L Phosphorus 2.6 D Magnesium 1.7 Total Bilirubin 1.6 H AST 122 H ALT 77 Alkaline Phosphatase 56 Troponin I B-Natriuretic Peptide Total Protein 6.4 Albumin 2.1 L Urine Color Urine Clarity Urine pH Ur Specific Way[place] Urine Protein Urine Glucose (UA) Urine Ketones Urine Occult Blood Urine Nitrate Urine Bilirubin Urine Urobilinogen Ur Leukocyte Esterase Urine RBC Urine WBC Ur Squamous Epith Cells Amorphous Sediment Urine Bacteria Hyaline Casts Urine Mucus Micro UA Comment Urine Culture Comments Urine Osmolality Ur Random Creatinine Ur Random Sodium Stl C.difficile Tox PCR St C. diff Tox Epid 027 RACHID Screen RACHID Titer RACHID Pattern RACHID Interpretation Complement C3 Complement C4 Hepatitis A IgM Ab Hep Bs Antigen Hep B Core IgM Ab Hep C IgG Ab Result Diagrams: 11/22/17 04:09 11/22/17 04:09 Microbiology: Microbiology 11/19/17 11:46 Aerobic Blood Culture - Preliminary Blood - Peripheral No growth in 3 days Anaerobic Blood Culture - Preliminary No growth in 3 days 11/19/17 08:20 Aerobic Blood Culture - Preliminary Blood - Peripheral No growth in 3 days Anaerobic Blood Culture - Preliminary No growth in 3 days 11/19/17 06:35 Urine Culture - Final Catheterized Urine Enterococcus faecalis Imaging: Abdomen/Pelvis CT 11/19/17 03:55 CONCLUSION: 1. Limited, suboptimal examination performed without intravenous or oral contrast. The study is degraded by motion artifact as well. 2. Abnormal bowel gas pattern with multiple small air-fluid levels. The bowel is suboptimally visualized and evaluated secondary to the lack of the intravenous and oral contrast as well as diffuse ascites. This may represent a gastroenteritis and/or ileus. Obstruction is less likely. 3. Diffuse ascites throughout the abdomen and pelvis. 4. Moderate size right effusion which is increased from the prior study. There is a new small left effusion. 5. Moderate cardiomegaly. 6. No definite gallstones identified. Chest X-Ray 11/19/17 03:55 CONCLUSION: 1. Mild hazy opacity is now noted in the right perihilar region concerning for mild pulmonary edema. 2. The heart size remains mildly enlarged and appearance. Head CT 11/19/17 03:55 CONCLUSION: 1. No acute hemorrhage or mass effect. 2. Mild motion and streak artifact. . Chest X-Ray 11/19/17 08:50 CONCLUSION: 1. ETT in good position. NGT beyond the GE junction. Central lines in good position. 2. Persistent atypical pulmonary edema pattern. Procedures: 11/19/2017: Right radial arterial line placement 11/19/2017: Endotracheal intubation 11/19/2017: Right subclavian triple-lumen catheter placement 11/19/2017 right IJ dialysis catheter placement . 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 He was never and has no children. He was previously in the [employer]. 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 Legal: No living will or healthcare surrogate completed. Ethical issues impacting care: None noted. . Important Contacts: Mother: Angelina Medina healthcare proxy Currently living with daughter , Kaylie Gama. Sister: Bryan Sharp Sister: Kamille Verdugo Brother: Segundo Verdugo Brother: Carter Chavez Sister: Kaylie Gama - , C [phone] . Prognosis: His prognosis is poor. He has end-stage heart disease now with an ejection fraction estimated to be less than 10% by collateral analyst echo. He has suffered a decline in heart function since June 2017 when echocardiogram showed a 50-55% ejection fraction at the time of mitral valve repair. Patient continued to abuse cocaine and possibly other substances and when seen in [place] September 2017 for chest pain was found to have non-ischemic cardiomyopathy with a normal coronary artery circulation and ejection fraction of 20-25%. Echocardiogram at this admission shows cardiogenic shock with an EF less than 10%. He is now requiring inotropic support with milrinone and now has acute kidney injury requiring dialysis for both hyperkalemia and fluid overload. At this time he remains on life support, intubated, but is at elevated risk for continued complications and decline. He would be hospice appropriate if goals were consistent. . Code Status: No Code DNR (Do not reintubate) Plan: PLAN: Legal decision maker: At this time the patient is not capacitated for decision making and it is not certain that he will ever regain capacity. He was never and has no children. His mother would be his proxy decision maker per [place] statutes. She had previously been reported to me as demented and unable to make these decisions, however, her daughter, Kaylie, who is her caregiver disputes that and states that her mother is perfectly capable of making these decisions and wishes to be her son's decision-maker. In conversation with Ms. Medina, herself, she appeared appropriate and capable of decision-making. Goals: Aggressive short of no code. CODE STATUS: DO NOT RESUSCITATE SYMPTOMS: * Altered mental status: Presented with altered mental status, positive for cocaine, hypoglycemic, hyperkalemic, in fulminant heart failure, minimally able to make his needs known. Shortly thereafter he required intubation and sedation. He becomes agitated when sedation is lightened but does not follow commands. Possibly related to end stage heart failure. Questionable HIV diagnosis per his mother. Labs pending. Bedside critical care echo showed severe biventricular dysfunction with EF less than 10%, aortic valve opening only minimally due to low flow. HIV test ordered per my discussion with Dr. Garcia. * Edema: Edema is improving on hemodialysis, which is on hold after today's ultrafiltration as patient's renal status is stabilizing and is having some urine output. Given his severe heart failure, borderline hypotension and impaired renal function, this is likely to be an ongoing problem. Palliative care will continue to follow the patient during hospital course as condition evolves, to assist patient/decision-maker with understanding of their medical conditions, weighing benefits/burdens of treatment options, for clarification of goals of treatment. Additionally will assist with any symptoms of palliative concern. . Attestation Attestation: To help prompt me to consider important information that might be impacting today's encounter and assessment, information from prior notes written by myself or my colleagues may have been "brought forward" into today's note. My signature on this note, however, is an attestation that I personally performed the exam, history, and/or decision-making noted today, and, unless otherwise indicated, the interactions with patient, family, and staff as well as the review of records all occurred today. I also attest that the listed assessment and stated plan reflect my best clinical judgment today based on the combination of historical information, prior notes, and today's exam/ interactions. When time spent is documented, it refers only to time spent today by the signer, or if indicated, combined time spent today by collaborating physician/nurse practitioner. .
[2017-11-23] MEDS: Midazolam 50 MG/50 ML Inj 50 MG/50 ML BAG IV.CONT PRN ×4 (00:09→20:28)
[2017-11-23] MEDS: Milrinone Inj 20 MG in Sodium Chlor 0.9% Inj 80 ML IV.CONT SCH ×4 (06:05→21:54)
[2017-11-23] MEDS: Chlorhexidine Gluconate 2% 1 Pack (2 Cloths) TOPICAL SCH (06:08)
[2017-11-23] MEDS: Heparin - SQ 10,000 UNITS/ML Vial SQ SCH ×3 (06:11→21:54)
[2017-11-23] MEDS: Senna/Docusate Sodium 8.6/50 MG Tablet PO SCH ×2 (09:46→20:28)
--- NOTE | 2017-11-23 11:22 | P.PNNP ---
Subjective Interval history: Patient remain intubated and sedated, clinically same. Physical Exam Vital signs: Vital Signs 11/22/17 12:00 11/22/17 13:00 11/22/17 15:55 Temperature 97.7 F Pulse Rate 86 Respiratory Rate 16 16 16 Blood Pressure 91/65 L Pulse Oximetry 99 99 100 11/22/17 16:00 11/22/17 20:00 11/22/17 20:11 Temperature 98.6 F 99.0 F Pulse Rate 87 87 Respiratory Rate 16 16 16 Blood Pressure 112/72 112/72 Pulse Oximetry 99 100 99 11/22/17 23:54 11/23/17 00:00 11/23/17 03:07 Temperature 99.3 F Pulse Rate 91 H Respiratory Rate 16 16 16 Blood Pressure 128/85 Pulse Oximetry 99 100 100 11/23/17 04:00 11/23/17 07:28 11/23/17 08:00 Temperature 99 F Pulse Rate 99 H 87 Respiratory Rate 17 18 Blood Pressure 140/97 H 126/96 H Pulse Oximetry 97 100 Intake & Output 11/22/17 11/23/17 11/23/17 18:59 06:59 18:59 Intake Total 181.2 / 181.2 117.5 / 117.5 Output Total 3225 / 3225 200 / 200 Balance -3043.8 / -3043.8 -82.5 / -82.5 Weight 66 kg Intake: IV 181.2 / 181.2 117.5 / 117.5 Versed Inj 50 mg In 50 ml @ 2 81.2 / 81.2 17.5 / 17.5 MG/HR 2 mls/hr IV.CONT TITRATE PRN Rx#:[id number] Primacor Inj 20 MG In NS Inj 80 100 / 100 100 / 100 ML @ 0.5 MCG/KG/MIN 10.5 mls/ hr IV.CONT .[id number] [facility] Rx#: [id number] Oral 0 / 0 0 / 0 Output: Stool 0 / 0 Hemodialysis Amount 3000 / 3000 Urine Amount (Catheter) 225 / 225 200 / 200 Indwelling Urethral Catheter 225 / 225 200 / 200 Other: Date of Last Bowel Movement 11/20/17 11/20/17 11/20/17 # Bowel Movements 0 0 # Incontinent Bowel Movements 0 Narrative: GENERAL: Intubated and sedated SKIN: Warm and dry. HEAD: Normocephalic. EYES: No scleral icterus. No injection or drainage. NECK: Supple, trachea midline. No JVD or lymphadenopathy. CARDIOVASCULAR: Regular rate and rhythm without murmurs, gallops, or rubs. Edema has improved only in feet. RESPIRATORY: Breath sounds decreased bilaterally. No accessory muscle use. Intubated GASTROINTESTINAL: Abdomen soft, non-tender, large. OG tube GENITOURINARY: Indwelling Smith catheter, small amount of dark colored urine MUSCULOSKELETAL: No cyanosis - Urinary Catheter Management Indwelling Urethral Catheter Cath placed during this visit: yes Reason for continuing: Hourly intake/output Insertion date: 11/19/17 Insertion time: 06:43 Assessment and Plan - Assessment (1) Acute on chronic renal failure Code(s): N17.9 - Acute kidney failure, unspecified; N18.9 - Chronic kidney disease, unspecified Status: Acute Qualifiers: Acute renal failure type: unspecified Chronic kidney disease stage: unspecified stage Qualified Code(s): N17.9 - Acute kidney failure, unspecified ; N18.9 - Chronic kidney disease, unspecified Plan: Acute renal failure with a creatinine of 2.41 and potassium level of 7.0, with treatment repeat potassium level at 6.8 on day of consult. CHRISTINA most likely ATN with FeNa of 2.87 and urine osmolarity of 3.09 from possible cardiogenic shock and hypotension CT of abdomen with kidneys normal in size and shape. No evidence of mass or hydronephrosis. Creatinine on 07/18 at 0.89. Creatinine at 1.61 and urinary output of 650 ml /24 hours Complements are low and RACHID is positive ANCA, antib DNA DS pending Hemodialysis initiated yesterday 12/20 for resistant hyperkalemia and anasarca Maintain strict I+O Avoid nephrotoxins including NSAIDS, aminoglycosides, and IV contrast Monitor urinary output and BMP Hemodialysis today for fluid removal only as creatinine has improved Dialysis on hold after last done on 11/22. Watch for renal recovery. Follow the urine out put and BMP. HD as needed. - Plan Patient seen and examined, agree with above. Patient seen during HD, BP is stable. HD again in AM.
--- NOTE | 2017-11-23 13:21 | P.PNCC ---
Subjective Subjective Remarks/Hospital Course: 11/19: This is a 57yM with history of cardiomyopathy and an EF 20% who recently underwent mitral valve repair for severe MR. At that time, he had a preserved LVEF. However, he continued to use illicit cocaine, and on subsequent hospital admissions, his EF had fallen to 20%. He represents today with altered mental status, endorsing cocaine use. On further evaluation, he has a potassium of 7, Cr 2.4, AST/ALT 200/72, CK 1302, BNP 4307, co2 14. On my evaluation he is obtunded and agonally breathing, intermittently tachypneic. I performed bedside critical care echo which demonstrated a severe biventricular dysfunction and an EF < 10%. there was spontaneous echo contrast in the LV and the aortic valve appeared to open only minimally due to low-flow. Patient is grossly anasarcic with 3+ edema bilaterally up to the abdomen. he has JVD above the level of the mandible. I emergently intubated the patient (see separate procedure note for details). I emergently placed arterial, central lines, and dialysis catheter. potassium did not improve with medical therapy. we consulted nephrology for emergent HD. I also placed the patient on epinephrine drip for cardiogenic shock. due to the patient's mental status and clinical status, no additional information is available from him. ROS unobtainable. 11/20: Remains sedated, orally intubated on mechanical ventilation. Dialyzed this morning. Remains on pressors. 11/21: Remains sedated, orally intubated on mechanical ventilation. Hypothermic this morning. 11/22: Remains sedated, orally intubated on mechanical ventilation. Dialysis scheduled today. 11/23: Remains sedated, orally intubated on mechanical ventilation. On milrinone. Objective Vital Signs / I&O: Vital Signs 11/22/17 15:55 11/22/17 16:00 11/22/17 20:00 Temperature 98.6 F 99.0 F Pulse Rate 87 87 Respiratory Rate 16 16 16 Blood Pressure 112/72 112/72 Pulse Oximetry 100 99 100 11/22/17 20:11 11/22/17 23:54 11/23/17 00:00 Temperature 99.3 F Pulse Rate 91 H Respiratory Rate 16 16 16 Blood Pressure 128/85 Pulse Oximetry 99 99 100 11/23/17 03:07 11/23/17 04:00 11/23/17 07:28 Temperature 99 F Pulse Rate 99 H Respiratory Rate 16 17 18 Blood Pressure 140/97 H Pulse Oximetry 100 97 11/23/17 08:00 11/23/17 11:24 11/23/17 12:12 Temperature Pulse Rate 87 Respiratory Rate 17 16 Blood Pressure 126/96 H Pulse Oximetry 100 99 98 Intake & Output 11/22/17 11/23/17 11/23/17 18:59 06:59 18:59 Intake Total 181.2 / 181.2 117.5 / 117.5 Output Total 3225 / 3225 200 / 200 Balance -3043.8 / -3043.8 -82.5 / -82.5 Weight 66 kg Intake: IV 181.2 / 181.2 117.5 / 117.5 Versed Inj 50 mg In 50 ml @ 2 81.2 / 81.2 17.5 / 17.5 MG/HR 2 mls/hr IV.CONT TITRATE PRN Rx#:[id number] Primacor Inj 20 MG In NS Inj 80 100 / 100 100 / 100 ML @ 0.5 MCG/KG/MIN 10.5 mls/ hr IV.CONT .Q9H32M [facility] Rx#: [id number] Oral 0 / 0 0 / 0 Output: Stool 0 / 0 Hemodialysis Amount 3000 / 3000 Urine Amount (Catheter) 225 / 225 200 / 200 Indwelling Urethral Catheter 225 / 225 200 / 200 Other: Date of Last Bowel Movement 11/20/17 11/20/17 11/20/17 # Bowel Movements 0 0 # Incontinent Bowel Movements 0 Result Diagrams: 11/22/17 04:09 11/22/17 04:09 Objective Remarks: HEENT/ Neuro: Sedated, orally intubated, Pallor present, no icterus, tongue/ mucosa moist Neck: No JVD Chest/Pulm: on mech vent, good air entry bilaterally, no wheezing or crackles CVS: S1-S2 regular, no murmur GI/abdomen: soft, nontender, bowel sounds sluggish Extremities: warm bilaterally, no edema Assessment and Plan - Assessment and Plan Plan: Assessment: 57yM with severe cardiomyopathy and ongoing cocaine abuse who presents in severe cardiogenic shock combined with active cocaine intoxication. Very critically ill, in extremis, in multiorgan failure. Overall, this is a patient whose cocaine use has complicated his cardiac problems to the point that this is now likely an end-stage process. will consult palliative care to assist the family, but this may be a fatal hospitalization for him due to his ongoing cocaine abuse and now multiorgan failure. Plan by systems: Neurologic: Acute toxic encephalopathy Acute cocaine intoxication Acute metabolic encephalopathy secondary to shock Sedation while intubated with daily sedation vacation. Versed infusion for goal RASS -2 Respiratory: Acute hypoxic and hypercarbic respiratory failure Acute severe pulmonary edema Probable Crack Lung Vent bundle Head of bed elevated Nebs Wean FiO2 for goal SPO2 greater than 90% Asymmetric pulmonary consolidation pattern is consistent with chronic crack cocaine use No SBT today given active shock dialysis for volume overload and pulmonary edema Cardiovascular: Cardiogenic shock Acute severe systolic congestive heart failure exacerbation Acute type II non-ST elevation myocardial infarction secondary to demand ischemia known prior EF 20% (09/2017), now bedside echo appears to be acutely < 10% likely secondary to chronic cocaine use superimposed on cardiomyopathy. emergent HD for fluid removal and preload optimization milrinone to assist with cardiac output. Off levophed and epinephrine drips. trend cvp trend lactates watch uop Renal: Acute kidney injury Most likely secondary to cardiogenic shock Smith has been placed Every hour urine outputs Emergent HD Nephrology consult -- Strict I/Os FEN/GI: Severe life-threatening hyperkalemia Severe intravascular volume overload Severe acute protein calorie malnutrition Lactic acidosis Severe anion gap metabolic acidosis N.p.o. while in shock Nephrology consulted with emergent dialysis Trend daily BMP, mag, phosphorus 2 A of bicarb IV 1 Now hypokalemic. K-Phos ordered on 11/21. Hemodialysis per renal. Heme/ID: Daily CBC No infectious etiology suspected this time Patient has severe diarrhea which is most likely ischemic colitis secondary to cardiogenic shock Endocrine: Acute hypoglycemia, severe D10W at 30 miles an hour Frequent glycemic checks -- SSI Prophylaxis: GI Prophylaxis Pepcid IV DVT Prophylaxis -- SCDs Subcu heparin Lines: 11/19 right brachial arterial line 11/19 right subclavian 7 Khmer triple-lumen catheter 11/19 right IJ 14 Khmer 20 cm dialysis catheter 11/19 Smith Prognosis appears poor. Palliative care following to assist with deciding goals of therapy. This patient remains critically ill with one or more organ systems which are or may become a threat to life. I have spent in excess of 35 minutes discontinuously in the care and management of this patient. This time is exclusive of procedures, and includes, but is not limited to, evaluation of the patient, review of the medical record, discussions with family, consultants, nursing staff, or respiratory therapy, and documentation in the medical record.
[2017-11-23] MEDS: Famotidine PF Inj 20 MG/2 ML Vial IV.PUSH SCH (18:46)
[2017-11-24] MEDS: Chlorhexidine Gluconate 2% 1 Pack (2 Cloths) TOPICAL SCH (04:02)
[2017-11-24] MEDS: Dextrose 10% in Water Inj 1,000 ML IV.SIG SCH ×2 (04:02→20:04)
[2017-11-24] MEDS: Midazolam 50 MG/50 ML Inj 50 MG/50 ML BAG IV.CONT PRN ×4 (04:03→23:01)
[2017-11-24] MEDS: Famotidine PF Inj 20 MG/2 ML Vial IV.PUSH SCH (09:00)
[2017-11-24] MEDS: Senna/Docusate Sodium 8.6/50 MG Tablet PO SCH ×2 (09:00→20:04)
--- NOTE | 2017-11-24 09:56 | P.DIET ---
Nutritional Evaluation Type of nutrition evaluation: initial Nutrition consult regarding: Tube Feeding Objective - Diagnosis AMS, Acute Kidney Injury, CHF Exac, Hyperkalemia - Objective Kake body weight: 78.2 kg % IBW: 90 Body Weight Used for Calculations: Actual (Initial wt 70kg used for assessment here) Energy Needs - Lower Range (kCal/kg): 27 Energy Needs - Upper Range (kCal/kg): 32 Lower Limit kCal/kg (kCals): 1,890 Upper Limit kCal/kg (kCals): 2,240 Lower Limit Protein Factor (Grams per Kg): 1.1 Upper Limit Protein Factor (Grams per Kg): 1.4 Lower Protein Needs (Protein): 77 Upper Protein Needs (Protein): 98 Dietitian Reviewed in Medical Record: Curent medications, Intake & Output, Labs , Medical history, Tube feeding Diet Order: TF'ing Nepro @ goal rate 30ml/hr Objective Comments: PMH: Cardiomyopathy EF 20%, recent MVR, ongoing cocaine use Labs Include: Creatinine 1.61, estGFR 54, Glucose 99 LBM 11/20, -UOP 650ml Feeding - Current Tube Feeding Tube Feeding Product: Nepro Assessment Assessment: Pt is at nutritional risk r/t need for TF'ing. HD initiated 11/22. To best meet pt's assessed needs for TF'ing w/Nepro, Rec a goal rate @ 45ml/hr to offer 1944 kcal, 87.5g Protein and 785ml free water. Additional Recs r/t Clinical Course. Recommendations: 1. To best meet pt's assessed needs for TF'ing w/Nepro, Rec a goal rate @ 45ml/ hr 2. Additional Recs r/t Clinical Course Dietitian to Monitor: Lab values, Electrolytes, Renal labs, Glucose level, Intake & Output, Tube feeding tolerance, Weight change, Medical course
--- NOTE | 2017-11-24 10:37 | P.PNCC ---
Subjective Subjective Remarks/Hospital Course: 11/19: This is a 57yM with history of cardiomyopathy and an EF 20% who recently underwent mitral valve repair for severe MR. At that time, he had a preserved LVEF. However, he continued to use illicit cocaine, and on subsequent hospital admissions, his EF had fallen to 20%. He represents today with altered mental status, endorsing cocaine use. On further evaluation, he has a potassium of 7, Cr 2.4, AST/ALT 200/72, CK 1302, BNP 4307, co2 14. On my evaluation he is obtunded and agonally breathing, intermittently tachypneic. I performed bedside critical care echo which demonstrated a severe biventricular dysfunction and an EF < 10%. there was spontaneous echo contrast in the LV and the aortic valve appeared to open only minimally due to low-flow. Patient is grossly anasarcic with 3+ edema bilaterally up to the abdomen. he has JVD above the level of the mandible. I emergently intubated the patient (see separate procedure note for details). I emergently placed arterial, central lines, and dialysis catheter. potassium did not improve with medical therapy. we consulted nephrology for emergent HD. I also placed the patient on epinephrine drip for cardiogenic shock. due to the patient's mental status and clinical status, no additional information is available from him. ROS unobtainable. 11/20: Remains sedated, orally intubated on mechanical ventilation. Dialyzed this morning. Remains on pressors. 2: Remains sedated, orally intubated on mechanical ventilation. Hypothermic this morning. 11/22: Remains sedated, orally intubated on mechanical ventilation. Dialysis scheduled today. 11/23: Remains sedated, orally intubated on mechanical ventilation. On milrinone. 11/24: Remains sedated, orally intubated on mechanical ventilation. Tolerating tube feeds. Objective Vital Signs / I&O: Vital Signs 11/23/17 11:00 11/23/17 11:24 11/23/17 12:00 Temperature Pulse Rate 85 93 H Respiratory Rate 16 17 16 Blood Pressure 132/89 125/85 Pulse Oximetry 100 99 100 11/23/17 12:12 11/23/17 13:00 11/23/17 14:00 Temperature Pulse Rate 84 87 Respiratory Rate 16 16 16 Blood Pressure 116/81 131/89 Pulse Oximetry 98 100 100 08/04/18 15:00 11/23/17 15:30 11/23/17 16:00 Temperature Pulse Rate 93 H 90 Respiratory Rate 16 16 16 Blood Pressure 122/84 122/81 Pulse Oximetry 100 100 11/23/17 17:01 11/23/17 18:00 11/23/17 19:41 Temperature Pulse Rate 118 H 92 H Respiratory Rate 20 16 16 Blood Pressure 144/101 H 129/86 Pulse Oximetry 87 L 100 99 11/23/17 20:00 11/24/17 00:00 11/24/17 01:06 Temperature 98.4 F 98.0 F Pulse Rate 104 H 86 Respiratory Rate 17 16 16 Blood Pressure 146/94 H 121/85 Pulse Oximetry 100 100 100 11/24/17 04:00 11/24/17 04:36 11/24/17 07:19 Temperature 98.0 F Pulse Rate 99 H Respiratory Rate 16 16 16 Blood Pressure 148/108 H Pulse Oximetry 100 100 100 11/24/17 08:00 Temperature Pulse Rate 97 H Respiratory Rate Blood Pressure 118/87 Pulse Oximetry 98 Intake & Output 11/23/17 11/24/17 11/24/17 18:59 06:59 18:59 Intake Total 18.8 / 18.8 250 / 250 Output Total 375 / 375 275 / 275 Balance -356.2 / -356.2 -25 / -25 Weight 64.5 kg Intake: IV 18.8 / 18.8 250 / 250 Versed Inj 50 mg In 50 ml @ 2 18.8 / 18.8 150 / 150 MG/HR 2 mls/hr IV.CONT TITRATE PRN Rx#:[id number] Primacor Inj 20 MG In NS Inj 80 100 / 100 ML @ 0.5 MCG/KG/MIN 10.5 mls/ hr IV.CONT .Q9H32M [facility] Rx#: [id number] Oral 0 / 0 0 / 0 Tube Feeding 0 / 0 Output: Stool 0 / 0 0 / 0 Hemodialysis Amount 0 / 0 Urine Amount (Catheter) 375 / 375 275 / 275 Indwelling Urethral Catheter 375 / 375 275 / 275 Other: Date of Last Bowel Movement 11/20/17 11/21/17 11/21/17 # Bowel Movements 0 0 # Incontinent Bowel Movements 0 0 Result Diagrams: 11/22/17 04:09 11/22/17 04:09 Objective Remarks: HEENT/ Neuro: Sedated, orally intubated, Pallor present, no icterus, tongue/ mucosa moist Neck: No JVD Chest/Pulm: on mech vent, good air entry bilaterally, no wheezing or crackles CVS: S1-S2 regular, no murmur GI/abdomen: soft, nontender, bowel sounds sluggish Extremities: warm bilaterally, no edema Assessment and Plan - Assessment and Plan Plan: Assessment: 57yM with severe cardiomyopathy and ongoing cocaine abuse who presents in severe cardiogenic shock combined with active cocaine intoxication. Very critically ill, in extremis, in multiorgan failure. Overall, this is a patient whose cocaine use has complicated his cardiac problems to the point that this is now likely an end-stage process. will consult palliative care to assist the family, but this may be a fatal hospitalization for him due to his ongoing cocaine abuse and now multiorgan failure. Plan by systems: Neurologic: Acute toxic encephalopathy Acute cocaine intoxication Acute metabolic encephalopathy secondary to shock Sedation while intubated with daily sedation vacation. Versed infusion for goal RASS -2 Respiratory: Acute hypoxic and hypercarbic respiratory failure Acute severe pulmonary edema Probable Crack Lung Vent bundle Head of bed elevated Nebs Wean FiO2 for goal SPO2 greater than 90% Asymmetric pulmonary consolidation pattern is consistent with chronic crack cocaine use No SBT today given active shock dialysis for volume overload and pulmonary edema Cardiovascular: Cardiogenic shock Acute severe systolic congestive heart failure exacerbation Acute type II non-ST elevation myocardial infarction secondary to demand ischemia known prior EF 20% (09/2017), now bedside echo appears to be acutely < 10% likely secondary to chronic cocaine use superimposed on cardiomyopathy. emergent HD for fluid removal and preload optimization milrinone to assist with cardiac output. Off levophed and epinephrine drips. trend cvp trend lactates watch uop Renal: Acute kidney injury Most likely secondary to cardiogenic shock Smith has been placed Every hour urine outputs Emergent HD Nephrology consult -- Strict I/Os FEN/GI: Severe life-threatening hyperkalemia Severe intravascular volume overload Severe acute protein calorie malnutrition Lactic acidosis Severe anion gap metabolic acidosis N.p.o. while in shock Nephrology consulted with emergent dialysis Trend daily BMP, mag, phosphorus 2 A of bicarb IV 1 Now hypokalemic. K-Phos ordered on 11/21. Hemodialysis per renal. Heme/ID: Daily CBC No infectious etiology suspected this time Patient has severe diarrhea which is most likely ischemic colitis secondary to cardiogenic shock Endocrine: Acute hypoglycemia, severe D10W at 30 miles an hour Frequent glycemic checks -- SSI Prophylaxis: GI Prophylaxis Pepcid IV DVT Prophylaxis -- SCDs Subcu heparin Lines: 11/19 right brachial arterial line 11/19 right subclavian 7 Mexican triple-lumen catheter 11/19 right IJ 14 Mexican 20 cm dialysis catheter 11/19 Smith Prognosis appears poor. Palliative care following to assist with deciding goals of therapy. This patient remains critically ill with one or more organ systems which are or may become a threat to life. I have spent in excess of 35 minutes discontinuously in the care and management of this patient. This time is exclusive of procedures, and includes, but is not limited to, evaluation of the patient, review of the medical record, discussions with family, consultants, nursing staff, or respiratory therapy, and documentation in the medical record.
--- NOTE | 2017-11-24 17:39 | P.PNNP ---
Subjective Interval history: Patient seen clinically same , intubated and sedated. Physical Exam Vital signs: Vital Signs 11/23/17 18:00 11/23/17 19:41 11/23/17 20:00 Temperature 98.4 F Pulse Rate 92 H 104 H Respiratory Rate 16 16 17 Blood Pressure 129/86 146/94 H Pulse Oximetry 100 99 100 11/24/17 00:00 11/24/17 01:06 11/24/17 04:00 Temperature 98.0 F 98.0 F Pulse Rate 86 99 H Respiratory Rate 16 16 16 Blood Pressure 121/85 148/108 H Pulse Oximetry 100 100 100 11/24/17 04:36 11/24/17 07:19 11/24/17 08:00 Temperature Pulse Rate 97 H Respiratory Rate 16 16 16 Blood Pressure 118/87 Pulse Oximetry 100 100 99 11/24/17 09:00 11/24/17 10:00 11/24/17 11:00 Temperature Pulse Rate 100 H 93 H 90 Respiratory Rate 16 16 16 Blood Pressure 156/97 H 133/93 H 101/65 Pulse Oximetry 100 100 99 11/24/17 11:18 11/24/17 12:00 11/24/17 13:00 Temperature Pulse Rate 90 89 Respiratory Rate 16 16 16 Blood Pressure 115/82 108/82 Pulse Oximetry 100 100 100 11/24/17 14:00 11/24/17 15:26 11/24/17 16:00 Temperature Pulse Rate 100 H 97 H Respiratory Rate 17 16 Blood Pressure 124/85 Pulse Oximetry 100 100 Intake & Output 11/23/17 11/24/17 11/24/17 18:59 06:59 18:59 Intake Total 18.8 / 18.8 250 / 250 50 / 50 Output Total 375 / 375 275 / 275 Balance -356.2 / -356.2 -25 / -25 50 / 50 Weight 64.5 kg Intake: IV 18.8 / 18.8 250 / 250 50 / 50 Versed Inj 50 mg In 50 ml @ 2 18.8 / 18.8 150 / 150 50 / 50 MG/HR 2 mls/hr IV.CONT TITRATE PRN Rx#:[id number] Primacor Inj 20 MG In NS Inj 80 100 / 100 ML @ 0.5 MCG/KG/MIN 10.5 mls/ hr IV.CONT .Q9H32M [facility] Rx#: [id number] Oral 0 / 0 0 / 0 Tube Feeding 0 / 0 Output: Stool 0 / 0 0 / 0 Hemodialysis Amount 0 / 0 Urine Amount (Catheter) 375 / 375 275 / 275 Indwelling Urethral Catheter 375 / 375 275 / 275 Other: Date of Last Bowel Movement 11/20/17 11/21/17 11/21/17 # Bowel Movements 0 0 # Incontinent Bowel Movements 0 0 Narrative: GENERAL: Intubated and sedated SKIN: Warm and dry. HEAD: Normocephalic. EYES: No scleral icterus. No injection or drainage. NECK: Supple, trachea midline. No JVD or lymphadenopathy. CARDIOVASCULAR: Regular rate and rhythm without murmurs, gallops, or rubs. Edema has improved only in feet. RESPIRATORY: Breath sounds decreased bilaterally. No accessory muscle use. Intubated GASTROINTESTINAL: Abdomen soft, non-tender, large. OG tube GENITOURINARY: Indwelling Smith catheter, small amount of dark colored urine MUSCULOSKELETAL: No cyanosis - Urinary Catheter Management Indwelling Urethral Catheter Cath placed during this visit: yes Reason for continuing: Hourly intake/output Insertion date: 11/19/17 Insertion time: 06:43 Assessment and Plan - Assessment (1) Acute on chronic renal failure Code(s): N17.9 - Acute kidney failure, unspecified; N18.9 - Chronic kidney disease, unspecified Status: Acute Qualifiers: Acute renal failure type: unspecified Chronic kidney disease stage: unspecified stage Qualified Code(s): N17.9 - Acute kidney failure, unspecified ; N18.9 - Chronic kidney disease, unspecified Plan: Acute renal failure with a creatinine of 2.41 and potassium level of 7.0, with treatment repeat potassium level at 6.8 on day of consult. CHRISTINA most likely ATN with FeNa of 2.87 and urine osmolarity of 3.09 from possible cardiogenic shock and hypotension CT of abdomen with kidneys normal in size and shape. No evidence of mass or hydronephrosis. Creatinine on 07/18 at 0.89. Creatinine at 1.61 and urinary output of 650 ml /24 hours Complements are low and RACHID is positive ANCA, antib DNA DS pending Hemodialysis initiated yesterday 12/20 for resistant hyperkalemia and anasarca Maintain strict I+O Avoid nephrotoxins including NSAIDS, aminoglycosides, and IV contrast Monitor urinary output and BMP Watch for renal recovery. Follow the urine out put and BMP. HD done yesterday, mainly for fluid removal. Follow the urine out put and BMP. HD as needed. - Plan Patient seen and examined, agree with above. Patient seen during HD, BP is stable. HD again in AM.
[2017-11-24] MEDS: Heparin - SQ 10,000 UNITS/ML Vial SQ SCH ×3 (20:04→23:01)
[2017-11-24] MEDS: Milrinone Inj 20 MG in Sodium Chlor 0.9% Inj 80 ML IV.CONT SCH (20:20)
[2017-11-25] MEDS: Midazolam 50 MG/50 ML Inj 50 MG/50 ML BAG IV.CONT PRN ×5 (01:59→21:35)
[2017-11-25 05:09] LABS: Baso % (Auto) 0.8 % (0.0-2.0); Eos # (Auto) 0.2 th/mm3 (0.0-0.4); Eos % (Auto) 4.7 % (0.0-4.0); Hematocrit 45.3 % (39.0-51.0); Hemoglobin 14.6 gm/dL (13.0-17.0); Lymph # (Auto) 0.4 th/mm3 (1.0-4.8); Mean Corpuscular HGB Conc 32.3 % (32.0-36.0); Mean Corpuscular Hemoglobin 28.7 pg (27.0-34.0); Mean Corpuscular Volume 88.6 fL (80.0-100.0); Mean Platelet Volume 8.5 fL (7.0-11.0); Mono # (Auto) 0.3 th/mm3 (0.0-0.9); Mono % (Auto) 9.2 % (0.0-8.0); Neut # (Auto) 2.8 th/mm3 (1.8-7.7); Neut % (Auto) 74.3 % (16.0-70.0); Platelet Count 95 th/mm3 (150-450); Red Blood Count 5.11 mil/mm3 (4.50-5.90); White Blood Count 3.8 th/mm3 (4.0-11.0)
[2017-11-25 05:18] LABS: Alanine Aminotransferase 42 U/L (12-78); Albumin 1.7 g/dL (3.4-5.0); Anion Gap 7 meq/L (5-15); Aspartate Aminotransferase 68 U/L (15-37); Blood Urea Nitrogen 32 mg/dL (7-18); Calcium 7.8 mg/dL (8.5-10.1); Chloride 107 meq/L (98-107); Glomerular Filtration Rate 63 mL/min (>89); Glucose,Random 95 mg/dL (74-106); Potassium 3.2 meq/L (3.5-5.1); Sodium 142 meq/L (136-145)
[2017-11-25 05:21] LABS: Alkaline Phosphatase 64 U/L (45-117); Total Protein 6.3 g/dL (6.4-8.2)
[2017-11-25] MEDS: Milrinone Inj 20 MG in Sodium Chlor 0.9% Inj 80 ML IV.CONT SCH ×2 (06:10→15:13)
[2017-11-25] MEDS: Heparin - SQ 10,000 UNITS/ML Vial SQ SCH ×3 (06:11→21:35)
[2017-11-25 06:55] LABS: RBC Morphology Normal (Normal)
[2017-11-25 06:56] LABS: Platelet Morphology Normal (Normal)
[2017-11-25] MEDS: Famotidine PF Inj 20 MG/2 ML Vial IV.PUSH SCH (09:17)
--- NOTE | 2017-11-25 12:29 | P.PNCC ---
Subjective Subjective Remarks/Hospital Course: 11/19: This is a 57yM with history of cardiomyopathy and an EF 20% who recently underwent mitral valve repair for severe MR. At that time, he had a preserved LVEF. However, he continued to use illicit cocaine, and on subsequent hospital admissions, his EF had fallen to 20%. He represents today with altered mental status, endorsing cocaine use. On further evaluation, he has a potassium of 7, Cr 2.4, AST/ALT 200/72, CK 1302, BNP 4307, co2 14. On my evaluation he is obtunded and agonally breathing, intermittently tachypneic. I performed bedside critical care echo which demonstrated a severe biventricular dysfunction and an EF < 10%. there was spontaneous echo contrast in the LV and the aortic valve appeared to open only minimally due to low-flow. Patient is grossly anasarcic with 3+ edema bilaterally up to the abdomen. he has JVD above the level of the mandible. I emergently intubated the patient (see separate procedure note for details). I emergently placed arterial, central lines, and dialysis catheter. potassium did not improve with medical therapy. we consulted nephrology for emergent HD. I also placed the patient on epinephrine drip for cardiogenic shock. due to the patient's mental status and clinical status, no additional information is available from him. ROS unobtainable. 11/20: Remains sedated, orally intubated on mechanical ventilation. Dialyzed this morning. Remains on pressors. 11/21: Remains sedated, orally intubated on mechanical ventilation. Hypothermic this morning. 11/22: Remains sedated, orally intubated on mechanical ventilation. Dialysis scheduled today. 11/23: Remains sedated, orally intubated on mechanical ventilation. On milrinone. 11/24: Remains sedated, orally intubated on mechanical ventilation. Tolerating tube feeds. Objective Vital Signs / I&O: Vital Signs 11/24/17 13:00 11/24/17 14:00 11/24/17 14:01 Temperature Pulse Rate 89 100 H 103 H Respiratory Rate 16 17 16 Blood Pressure 108/82 133/83 Pulse Oximetry 100 100 100 11/24/17 15:01 11/24/17 15:26 11/24/17 16:00 Temperature Pulse Rate 98 H 97 H Respiratory Rate 18 16 16 Blood Pressure 123/88 124/86 Pulse Oximetry 100 100 100 11/24/17 17:00 11/24/17 18:00 11/24/17 18:30 Temperature Pulse Rate 96 H 94 H 103 H Respiratory Rate 19 16 19 Blood Pressure 122/88 116/81 124/89 Pulse Oximetry 100 100 100 11/24/17 19:00 11/24/17 19:38 11/24/17 20:00 Temperature 99.8 F H Pulse Rate 97 H 97 H Respiratory Rate 18 16 16 Blood Pressure 126/85 115/84 Pulse Oximetry 100 100 100 11/24/17 23:30 11/24/17 23:39 11/25/17 00:00 Temperature 100.9 F H Pulse Rate 114 H 108 H 108 H Respiratory Rate 24 20 16 Blood Pressure 138/93 H 132/80 94/64 L Pulse Oximetry 100 100 99 11/25/17 00:30 11/25/17 00:47 11/25/17 01:00 Temperature Pulse Rate 102 H 104 H Respiratory Rate 24 19 26 H Blood Pressure 128/77 138/89 Pulse Oximetry 100 100 100 11/25/17 01:30 11/25/17 01:57 11/25/17 02:00 Temperature Pulse Rate 117 H 108 H 108 H Respiratory Rate 16 16 16 Blood Pressure 144/101 H 133/92 H 137/95 H Pulse Oximetry 100 100 100 11/25/17 02:30 11/25/17 03:00 11/25/17 03:30 Temperature Pulse Rate 106 H 108 H 99 H Respiratory Rate 16 16 16 Blood Pressure 143/98 H 135/98 H 115/76 Pulse Oximetry 100 100 100 11/25/17 04:00 11/25/17 04:30 11/25/17 04:47 Temperature 98.6 F Pulse Rate 97 H 93 H Respiratory Rate 16 16 17 Blood Pressure 118/87 118/74 Pulse Oximetry 100 100 100 11/25/17 05:00 11/25/17 05:30 11/25/17 06:00 Temperature Pulse Rate 92 H 92 H 95 H Respiratory Rate 21 16 16 Blood Pressure 128/90 126/79 130/94 H Pulse Oximetry 100 100 100 11/25/17 07:00 11/25/17 07:27 11/25/17 07:30 Temperature Pulse Rate 101 H 101 H 97 H Respiratory Rate 16 16 16 Blood Pressure 135/99 H 136/99 H Pulse Oximetry 100 100 100 11/25/17 07:54 11/25/17 08:00 11/25/17 08:33 Temperature 97.6 F Pulse Rate 100 H 100 H Respiratory Rate 18 23 16 Blood Pressure 122/90 Pulse Oximetry 100 100 100 11/25/17 09:00 11/25/17 09:54 11/25/17 10:00 Temperature Pulse Rate 93 H 92 H 92 H Respiratory Rate 16 16 16 Blood Pressure 116/74 128/90 117/84 Pulse Oximetry 99 100 100 11/25/17 10:30 11/25/17 11:00 11/25/17 11:34 Temperature Pulse Rate 93 H 96 H Respiratory Rate 16 16 16 Blood Pressure 118/85 130/97 H Pulse Oximetry 100 100 100 Intake & Output 11/24/17 11/25/17 11/25/17 18:59 06:59 18:59 Intake Total 410 / 410 1632.8 / 1632.8 Output Total 350 / 350 400 / 400 Balance 60 / 60 1232.8 / 1232.8 Weight 64.5 kg Intake: IV 200 / 200 1218.8 / 1218.8 Versed Inj 50 mg In 50 ml @ 2 100 / 100 118.8 / 118.8 MG/HR 2 mls/hr IV.CONT TITRATE PRN Rx#:[id number] Primacor Inj 20 MG In NS Inj 80 100 / 100 100 / 100 ML @ 0.5 MCG/KG/MIN 10.5 mls/ hr IV.CONT .Q9H32M [facility] Rx#: [id number] D10W Inj 1,000 ML @ 30 mls/hr 1000 / 1000 IV.SIG .Q24H [facility] Rx#:[id number] Oral 0 / 0 Tube Feeding 150 / 150 324 / 324 Tube Irrigant 60 / 60 90 / 90 Output: Stool 0 / 0 Hemodialysis Amount 0 / 0 Urine Amount (Catheter) 350 / 350 400 / 400 Indwelling Urethral Catheter 350 / 350 400 / 400 Other: Date of Last Bowel Movement 11/21/17 11/24/17 # Bowel Movements 1 # Incontinent Bowel Movements 0 Result Diagrams: 11/25/17 04:40 11/25/17 04:40 Objective Remarks: HEENT/ Neuro: Sedated, orally intubated, Pallor present, no icterus, tongue/ mucosa moist Neck: No JVD Chest/Pulm: on mech vent, good air entry bilaterally, no wheezing or crackles CVS: S1-S2 regular, no murmur GI/abdomen: soft, nontender, bowel sounds sluggish Extremities: warm bilaterally, no edema Assessment and Plan - Assessment and Plan Plan: Assessment: 57yM with severe cardiomyopathy and ongoing cocaine abuse who presents in severe cardiogenic shock combined with active cocaine intoxication. Very critically ill, in extremis, in multiorgan failure. Overall, this is a patient whose cocaine use has complicated his cardiac problems to the point that this is now likely an end-stage process. will consult palliative care to assist the family, but this may be a fatal hospitalization for him due to his ongoing cocaine abuse and now multiorgan failure. Plan by systems: Neurologic: Acute toxic encephalopathy Acute cocaine intoxication Acute metabolic encephalopathy secondary to shock Sedation while intubated with daily sedation vacation. Versed infusion for goal RASS -2 Respiratory: Acute hypoxic and hypercarbic respiratory failure Acute severe pulmonary edema Probable Crack Lung Vent bundle Head of bed elevated Nebs Wean FiO2 for goal SPO2 greater than 90% Asymmetric pulmonary consolidation pattern is consistent with chronic crack cocaine use No SBT today given active shock dialysis for volume overload and pulmonary edema Cardiovascular: Cardiogenic shock Acute severe systolic congestive heart failure exacerbation Acute type II non-ST elevation myocardial infarction secondary to demand ischemia known prior EF 20% (09/2017), now bedside echo appears to be acutely < 10% likely secondary to chronic cocaine use superimposed on cardiomyopathy. emergent HD for fluid removal and preload optimization milrinone to assist with cardiac output. Off levophed and epinephrine drips. trend cvp trend lactates watch uop Renal: Acute kidney injury Most likely secondary to cardiogenic shock Smith has been placed Every hour urine outputs Emergent HD Nephrology consult -- Strict I/Os FEN/GI: Severe life-threatening hyperkalemia Severe intravascular volume overload Severe acute protein calorie malnutrition Lactic acidosis Severe anion gap metabolic acidosis Nephrology consulted with emergent dialysis Trend daily BMP, mag, phosphorus Hemodialysis per renal. Heme/ID: Daily CBC Hep C reactive, HIV reactive on screening test confirmatory test pending. Patient has severe diarrhea. Endocrine: Acute hypoglycemia, severe D10W at 30 miles an hour Frequent glycemic checks -- SSI Prophylaxis: GI Prophylaxis Pepcid IV DVT Prophylaxis -- SCDs Subcu heparin Lines: 11/19 right brachial arterial line 11/19 right subclavian 7 O[place]i triple-lumen catheter 11/19 right IJ 14 [place]i 20 cm dialysis catheter 11/19 Smith Prognosis appears poor. Palliative care following to assist with deciding goals of therapy. This patient remains critically ill with one or more organ systems which are or may become a threat to life. I have spent in excess of 35 minutes discontinuously in the care and management of this patient. This time is exclusive of procedures, and includes, but is not limited to, evaluation of the patient, review of the medical record, discussions with family, consultants, nursing staff, or respiratory therapy, and documentation in the medical record.
[2017-11-25] MEDS: Dextrose 10% in Water Inj 1,000 ML IV.SIG SCH (13:36)
[2017-11-25] MEDS: Senna/Docusate Sodium 8.6/50 MG Tablet PO SCH ×2 (13:43→20:17)
--- NOTE | 2017-11-25 15:21 | P.PNNP ---
Subjective Interval history: Remains intubated on mild sedation with FiO2 at 30 %. Creatinine is stable at 1.40. <Karine Turcios - Last Filed: 11/25/17 15:16> Physical Exam Vital signs: Vital Signs 11/24/17 15:26 11/24/17 16:00 11/24/17 17:00 Temperature Pulse Rate 97 H 96 H Respiratory Rate 16 16 19 Blood Pressure 124/86 122/88 Pulse Oximetry 100 100 100 11/24/17 18:00 11/24/17 18:30 11/24/17 19:00 Temperature Pulse Rate 94 H 103 H 97 H Respiratory Rate 16 19 18 Blood Pressure 116/81 124/89 126/85 Pulse Oximetry 100 100 100 11/24/17 19:38 11/24/17 20:00 11/24/17 23:30 Temperature 99.8 F H Pulse Rate 97 H 114 H Respiratory Rate 16 16 24 Blood Pressure 115/84 138/93 H Pulse Oximetry 100 100 100 11/24/17 23:39 11/25/17 00:00 11/25/17 00:30 Temperature 100.9 F H Pulse Rate 108 H 108 H 102 H Respiratory Rate 20 16 24 Blood Pressure 132/80 94/64 L 128/77 Pulse Oximetry 100 99 100 11/25/17 00:47 11/25/17 01:00 11/25/17 01:30 Temperature Pulse Rate 104 H 117 H Respiratory Rate 19 26 H 16 Blood Pressure 138/89 144/101 H Pulse Oximetry 100 100 100 11/25/17 01:57 11/25/17 02:00 11/25/17 02:30 Temperature Pulse Rate 108 H 108 H 106 H Respiratory Rate 16 16 16 Blood Pressure 133/92 H 137/95 H 143/98 H Pulse Oximetry 100 100 100 11/25/17 03:00 11/25/17 03:30 11/25/17 04:00 Temperature 98.6 F Pulse Rate 108 H 99 H 97 H Respiratory Rate 16 16 16 Blood Pressure 135/98 H 115/76 118/87 Pulse Oximetry 100 100 100 11/25/17 04:30 11/25/17 04:47 11/25/17 05:00 Temperature Pulse Rate 93 H 92 H Respiratory Rate 16 17 21 Blood Pressure 118/74 128/90 Pulse Oximetry 100 100 100 11/25/17 05:30 11/25/17 06:00 11/25/17 07:00 Temperature Pulse Rate 92 H 95 H 101 H Respiratory Rate 16 16 16 Blood Pressure 126/79 130/94 H Pulse Oximetry 100 100 100 11/25/17 07:27 11/25/17 07:30 11/25/17 07:54 Temperature Pulse Rate 101 H 97 H Respiratory Rate 16 16 18 Blood Pressure 135/99 H 136/99 H Pulse Oximetry 100 100 100 11/25/17 08:00 11/25/17 08:33 11/25/17 09:00 Temperature 97.6 F Pulse Rate 100 H 100 H 93 H Respiratory Rate 23 16 16 Blood Pressure 122/90 116/74 Pulse Oximetry 100 100 99 11/25/17 09:54 11/25/17 10:00 11/25/17 10:30 Temperature Pulse Rate 92 H 92 H 93 H Respiratory Rate 16 16 16 Blood Pressure 128/90 117/84 118/85 Pulse Oximetry 100 100 100 11/25/17 11:00 11/25/17 11:30 11/25/17 11:34 Temperature Pulse Rate 96 H 100 H Respiratory Rate 16 16 16 Blood Pressure 130/97 H 136/96 H Pulse Oximetry 100 100 100 11/25/17 12:00 11/25/17 12:30 11/25/17 13:00 Temperature 99.1 F Pulse Rate 102 H 106 H 96 H Respiratory Rate 16 19 16 Blood Pressure 131/92 H 140/95 H 110/75 Pulse Oximetry 100 100 98 11/25/17 13:31 11/25/17 14:00 Temperature Pulse Rate 98 H 105 H Respiratory Rate 20 16 Blood Pressure 127/90 Pulse Oximetry 100 100 Intake & Output 11/24/17 11/25/17 11/25/17 18:59 06:59 18:59 Intake Total 410 / 410 1632.8 / 1632.8 650 / 650 Output Total 350 / 350 400 / 400 Balance 60 / 60 1232.8 / 1232.8 650 / 650 Weight 64.5 kg Intake: IV 200 / 200 1218.8 / 1218.8 650 / 650 Versed Inj 50 mg In 50 ml @ 2 100 / 100 118.8 / 118.8 50 / 50 MG/HR 2 mls/hr IV.CONT TITRATE PRN Rx#:[id number] Primacor Inj 20 MG In NS Inj 80 100 / 100 100 / 100 100 / 100 ML @ 0.5 MCG/KG/MIN 10.5 mls/ hr IV.CONT .Q9H32M [facility] Rx#: [id number] D10W Inj 1,000 ML @ 30 mls/hr 1000 / 1000 500 / 500 IV.SIG .Q24H [facility] Rx#:[id number] Oral 0 / 0 Tube Feeding 150 / 150 324 / 324 Tube Irrigant 60 / 60 90 / 90 Output: Stool 0 / 0 Hemodialysis Amount 0 / 0 Urine Amount (Catheter) 350 / 350 400 / 400 Indwelling Urethral Catheter 350 / 350 400 / 400 Other: Date of Last Bowel Movement 11/21/17 11/24/17 # Bowel Movements 1 # Incontinent Bowel Movements 0 Narrative: GENERAL: Intubated and sedated SKIN: Warm and dry. Right IJ HEAD: Normocephalic. EYES: No scleral icterus. No injection or drainage. NECK: Supple, trachea midline. No JVD or lymphadenopathy. CARDIOVASCULAR: Regular rate and rhythm without murmurs, gallops, or rubs. Edema lower extremity RESPIRATORY: Breath sounds decreased bilaterally. No accessory muscle use. Intubated GASTROINTESTINAL: Abdomen soft, non-tender, large. OG tube GENITOURINARY: Indwelling Smith catheter MUSCULOSKELETAL: No cyanosis - Urinary Catheter Management Indwelling Urethral Catheter Cath placed during this visit: yes Reason for continuing: Terminally ill/Comfort care Insertion date: 11/19/17 Insertion time: 06:43 <Karine Turcios - Last Filed: 11/25/17 15:16> Vital signs: Vital Signs 11/25/17 21:30 11/25/17 22:00 11/25/17 22:30 Temperature Pulse Rate 111 H 108 H 128 H Respiratory Rate 16 16 16 Blood Pressure 127/87 99/79 L 145/98 H Pulse Oximetry 100 100 100 11/25/17 23:00 11/25/17 23:31 11/26/17 00:00 Temperature 99.5 F Pulse Rate 110 H 121 H 116 H Respiratory Rate 16 20 22 Blood Pressure 129/87 140/102 H 135/97 H Pulse Oximetry 100 100 100 11/26/17 00:30 11/26/17 01:00 11/26/17 01:31 Temperature Pulse Rate 112 H 110 H 103 H Respiratory Rate 18 17 16 Blood Pressure 130/93 H 131/87 99/63 L Pulse Oximetry 100 100 98 11/26/17 02:00 11/26/17 02:30 11/26/17 03:00 Temperature Pulse Rate 109 H 102 H 109 H Respiratory Rate 30 H 25 H 22 Blood Pressure 122/90 120/87 Pulse Oximetry 100 100 100 11/26/17 03:01 11/26/17 03:12 11/26/17 03:31 Temperature Pulse Rate 119 H 102 H Respiratory Rate 12 17 16 Blood Pressure 160/96 H 108/74 Pulse Oximetry 100 100 98 11/26/17 04:00 11/26/17 07:27 11/26/17 08:00 Temperature 98.6 F 99.5 F Pulse Rate 104 H 121 H Respiratory Rate 16 18 23 Blood Pressure 137/95 H 142/85 H Pulse Oximetry 100 100 100 11/26/17 10:15 11/26/17 11:34 11/26/17 12:00 Temperature 98.9 F Pulse Rate 104 H Respiratory Rate 19 19 21 Blood Pressure 99/68 L Pulse Oximetry 96 99 100 11/26/17 16:00 11/26/17 16:20 11/26/17 19:41 Temperature 98.8 F Pulse Rate 107 H Respiratory Rate 21 16 16 Blood Pressure 131/68 Pulse Oximetry 100 100 99 11/26/17 20:00 Temperature 98.4 F Pulse Rate 95 H Respiratory Rate 16 Blood Pressure 92/70 L Pulse Oximetry 100 Intake & Output 11/26/17 11/26/17 11/27/17 06:59 18:59 06:59 Intake Total 779.8 / 779.8 1137 / 1137 Output Total 550 / 550 0 / 0 Balance 229.8 / 229.8 1137 / 1137 Weight 66 kg Intake: IV 218.8 / 218.8 554 / 554 Versed Inj 50 mg In 50 ml @ 2 118.8 / 118.8 100 / 100 MG/HR 2 mls/hr IV.CONT TITRATE PRN Rx#:[id number] Primacor Inj 20 MG In NS Inj 80 100 / 100 67 / 67 ML @ 0.5 MCG/KG/MIN 10.5 mls/ hr IV.CONT .Q9H32M [facility] Rx#: [id number] D10W Inj 1,000 ML @ 30 mls/hr 387 / 387 IV.SIG .Q24H [facility] Rx#:[id number] Oral 0 / 0 0 / 0 Tube Feeding 361 / 361 383 / 383 Water Bolus Amount 200 / 200 200 / 200 Output: Urine Amount (Catheter) 550 / 550 0 / 0 Straight 550 / 550 0 / 0 Other: # Voids 3 # Incontinent Voids 3 Date of Last Bowel Movement 11/26/17 # Bowel Movements 1 - Urinary Catheter Management Indwelling Urethral Catheter Cath placed during this visit: yes, but has since been removed by the nurse Reason for continuing: Terminally ill/Comfort care Insertion date: 11/19/17 Insertion time: 06:43 Removal date: 11/25/17 Removal time: 15:19 Straight Cath placed during this visit: no <Sumanth Cha - Last Filed: 11/26/17 21:26> Assessment and Plan - Assessment (1) Acute on chronic renal failure Code(s): N17.9 - Acute kidney failure, unspecified; N18.9 - Chronic kidney disease, unspecified Status: Acute Plan: Acute renal failure with a creatinine of 2.41 and potassium level of 7.0, with treatment repeat potassium level at 6.8 on day of consult. CHRISTINA most likely ATN with FeNa of 2.87 and urine osmolarity of 3.09 from possible cardiogenic shock and hypotension CT of abdomen with kidneys normal in size and shape. No evidence of mass or hydronephrosis. Creatinine on 07/18 at 0.89. Creatinine stable at 1.4 and urinary output of 750 ml /24 hours Complements are low, ANCA normal, and RACHID is positive anti DNA DS pending Hemodialysis initiated 12/20 for resistant hyperkalemia and anasarca Maintain strict I+O Avoid nephrotoxins including NSAIDS, aminoglycosides, and IV contrast Monitor urinary output, BMP, and watch for renal recovery. HD on hold. Will do hemodialysis as needed. Labs in AM - Plan . <Karine Turcios - Last Filed: 11/25/17 15:16> - Assessment (1) Acute on chronic renal failure Code(s): N17.9 - Acute kidney failure, unspecified; N18.9 - Chronic kidney disease, unspecified Status: Acute Qualifiers: Acute renal failure type: unspecified Chronic kidney disease stage: unspecified stage Qualified Code(s): N17.9 - Acute kidney failure, unspecified ; N18.9 - Chronic kidney disease, unspecified - Attending Attestation Patient seen and examined, agree with above. Urine out put is adequate. Creatinine better, HD is on hold. <Sumanth Cha - Last Filed: 11/26/17 21:26>
--- NOTE | 2017-11-25 15:23 | P.PNPAL ---
Reason for Visit Reason for visit: a. To assist with evaluation and management of symptoms including: Altered mental status, edema b. To assist medical decision maker(s) with: better understanding of current medical conditions; weighing benefits/burdens of medical treatment options; making medical treatment decisions. Subjective Subjective/Interval History: Follow up medically necessary for symptom management. Patient seen and examined in his room. He remains intubated and sedated. Patient is currently on Midazolam infusion at 10mg/hr and he is also on Milrinone infusion. Unable to assess patient`s mentation at this time since he remains intubated and sedated. Per bedside RN report, patient has not had spontaneous breathing trial today. He failed CPAP trial yesterday. He also pulled out his arterial line yesterday. Trace edema noted during examination, patient had hemodialysis on 11/23/17 mainly for volume overload and pulmonary edema. Laboratory workup today revealing sodium 142, potassium 3.2, calcium 7.8, BUN/creatinine 32/1.40, random glucose 95, total protein 6.3, albumin 1.7. Hep C-reactive and HIV reactive on screening test confirmatory test pending. No recent imaging. . Family/Friend Interactions: Telephone call to patient`s mother with no response. Telephone conversation with patient`s sister Kaylie Gama who stated that patient`s mother Angelina Medina was with her. Updated her on patient`s status. Patient`s sister stated that patient`s mother would like goals to remain aggressive at this time and patient to remain DNR. She mentioned that patient`s mother is not ready to "pull the plug" at this time. Advance Directives Living Will: Never completed Health Care Surrogate: Never completed Durable Power of Labor Contractor: Never completed Objective Vital Signs: Vital Signs 11/24/17 15:01 11/24/17 15:26 11/24/17 16:00 Temperature Pulse Rate 98 H 97 H Respiratory Rate 18 16 16 Blood Pressure 123/88 124/86 Pulse Oximetry 100 100 100 11/24/17 17:00 11/24/17 18:00 11/24/17 18:30 Temperature Pulse Rate 96 H 94 H 103 H Respiratory Rate 19 16 19 Blood Pressure 122/88 116/81 124/89 Pulse Oximetry 100 100 100 11/24/17 19:00 11/24/17 19:38 11/24/17 20:00 Temperature 99.8 F H Pulse Rate 97 H 97 H Respiratory Rate 18 16 16 Blood Pressure 126/85 115/84 Pulse Oximetry 100 100 100 11/24/17 23:30 11/24/17 23:39 11/25/17 00:00 Temperature 100.9 F H Pulse Rate 114 H 108 H 108 H Respiratory Rate 24 20 16 Blood Pressure 138/93 H 132/80 94/64 L Pulse Oximetry 100 100 99 11/25/17 00:30 11/25/17 00:47 11/25/17 01:00 Temperature Pulse Rate 102 H 104 H Respiratory Rate 24 19 26 H Blood Pressure 128/77 138/89 Pulse Oximetry 100 100 100 11/25/17 01:30 11/25/17 01:57 11/25/17 02:00 Temperature Pulse Rate 117 H 108 H 108 H Respiratory Rate 16 16 16 Blood Pressure 144/101 H 133/92 H 137/95 H Pulse Oximetry 100 100 100 11/25/17 02:30 11/25/17 03:00 11/25/17 03:30 Temperature Pulse Rate 106 H 108 H 99 H Respiratory Rate 16 16 16 Blood Pressure 143/98 H 135/98 H 115/76 Pulse Oximetry 100 100 100 11/25/17 04:00 11/25/17 04:30 11/25/17 04:47 Temperature 98.6 F Pulse Rate 97 H 93 H Respiratory Rate 16 16 17 Blood Pressure 118/87 118/74 Pulse Oximetry 100 100 100 11/25/17 05:00 11/25/17 05:30 11/25/17 06:00 Temperature Pulse Rate 92 H 92 H 95 H Respiratory Rate 21 16 16 Blood Pressure 128/90 126/79 130/94 H Pulse Oximetry 100 100 100 11/25/17 07:00 11/25/17 07:27 11/25/17 07:30 Temperature Pulse Rate 101 H 101 H 97 H Respiratory Rate 16 16 16 Blood Pressure 135/99 H 136/99 H Pulse Oximetry 100 100 100 11/25/17 07:54 11/25/17 08:00 11/25/17 08:33 Temperature 97.6 F Pulse Rate 100 H 100 H Respiratory Rate 18 23 16 Blood Pressure 122/90 Pulse Oximetry 100 100 100 11/25/17 09:00 11/25/17 09:54 11/25/17 10:00 Temperature Pulse Rate 93 H 92 H 92 H Respiratory Rate 16 16 16 Blood Pressure 116/74 128/90 117/84 Pulse Oximetry 99 100 100 11/25/17 10:30 11/25/17 11:00 11/25/17 11:30 Temperature Pulse Rate 93 H 96 H 100 H Respiratory Rate 16 16 16 Blood Pressure 118/85 130/97 H 136/96 H Pulse Oximetry 100 100 100 11/25/17 11:34 11/25/17 12:00 11/25/17 12:30 Temperature 99.1 F Pulse Rate 102 H 106 H Respiratory Rate 16 16 19 Blood Pressure 131/92 H 140/95 H Pulse Oximetry 100 100 100 11/25/17 13:00 11/25/17 13:31 11/25/17 14:00 Temperature Pulse Rate 96 H 98 H 105 H Respiratory Rate 16 20 16 Blood Pressure 110/75 127/90 Pulse Oximetry 98 100 100 Intake & Output 11/24/17 11/25/17 11/25/17 18:59 06:59 18:59 Intake Total 410 / 410 1632.8 / 1632.8 550 / 550 Output Total 350 / 350 400 / 400 Balance 60 / 60 1232.8 / 1232.8 550 / 550 Weight 64.5 kg Intake: IV 200 / 200 1218.8 / 1218.8 550 / 550 Versed Inj 50 mg In 50 ml @ 2 100 / 100 118.8 / 118.8 50 / 50 MG/HR 2 mls/hr IV.CONT TITRATE PRN Rx#:[id number] Primacor Inj 20 MG In NS Inj 80 100 / 100 100 / 100 ML @ 0.5 MCG/KG/MIN 10.5 mls/ hr IV.CONT .Q9H32M [facility] Rx#: [id number] Inj 1,000 ML @ 30 mls/hr 1000 / 1000 500 / 500 IV.SIG .Q24H [facility] Rx#:[id number] Oral 0 / 0 Tube Feeding 150 / 150 324 / 324 Tube Irrigant 60 / 60 90 / 90 Output: Stool 0 / 0 Hemodialysis Amount 0 / 0 Urine Amount (Catheter) 350 / 350 400 / 400 Indwelling Urethral Catheter 350 / 350 400 / 400 Other: Date of Last Bowel Movement 11/21/17 11/24/17 # Bowel Movements 1 # Incontinent Bowel Movements 0 Physical Exam: CONSTITUTIONAL/GENERAL: This is an adequately nourished patient, intubated, sedated, in no apparent distress. TUBES/LINES/DRAINS: Right IJ Vas-Cath, right subclavian central line, ETT, Smith catheter,OGT, . SKIN: No jaundice, rashes, or lesions. No wounds seen anteriorly. Skin temperature appropriate. Not diaphoretic. HEAD: Atraumatic. Normocephalic. EYES: Pupils equal and round and sluggishly reactive. No scleral icterus. No injection or drainage. Fundi not examined. ENT: Nose without bleeding or purulent drainage. Orally intubated. NECK: Trachea midline. Supple, nontender. CARDIOVASCULAR: S1, S2, S3. Irregular rhythm, controlled rate without gallops, or rubs. Soft 1/6 systolic ejection murmur. No JVD. Peripheral pulses symmetric. RESPIRATORY/CHEST: Symmetric, unlabored respirations. Clear but diminished in the bases. No wheezes, rales, or rhonchi. GASTROINTESTINAL: Abdomen soft, nondistended. Bowel sounds hypoactive. GENITOURINARY: Without palpable bladder distension. Smith catheter in place. MUSCULOSKELETAL: Extremities without clubbing or cyanosis, 2+ dependent edema. No joint tenderness or effusion noted. No mottling or clubbing. NEUROLOGICAL: Intubated and Sedated.Midazolam currently infusing at 10mg/hr PSYCHIATRIC: Unable to assess. Currently sedated and calm. . Diagnostic Tests Laboratory: Laboratory Results - last 72 hr 11/20/17 11/22/17 11/24/17 04:50 16:45 17:32 WBC RBC Hgb Hct MCV MCH MCHC RDW Plt Count MPV Prelim Diff (Auto) Neut % (Auto) Lymph % (Auto) Nance % (Auto) Eos % (Auto) Baso % (Auto) Neut # (Auto) Lymph # (Auto) Nance # (Auto) Eos # (Auto) Baso # (Auto) WBC Differential Diff Scan Differential Comment Platelet Estimate Platelet Morphology RBC Morphology Sodium Potassium Chloride Carbon Dioxide Anion Gap BUN Creatinine Estimated GFR POC Glucose 77 Random Glucose Calcium Total Bilirubin AST ALT Alkaline Phosphatase Total Protein Albumin Anti-Proteinase 3 Less than 1.0 Anti-Myeloperoxidase Less than 1.0 HIV 1&2 Ab/P24 Ag 4thGn Reflex H 11/24/17 11/25/17 11/25/17 19:40 04:40 04:40 WBC 3.8 L RBC 5.11 Hgb 14.6 Hct 45.3 MCV 88.6 MCH 28.7 MCHC 32.3 RDW 16.0 Plt Count 95 L MPV 8.5 Prelim Diff (Auto) Slide review pending Neut % (Auto) 74.3 H Lymph % (Auto) 11.0 Nance % (Auto) 9.2 H Eos % (Auto) 4.7 H Baso % (Auto) 0.8 Neut # (Auto) 2.8 Lymph # (Auto) 0.4 L Nance # (Auto) 0.3 Eos # (Auto) 0.2 Baso # (Auto) 0.0 WBC Differential . Diff Scan Auto diff confirmed Differential Comment . Platelet Estimate Low L Platelet Morphology Normal RBC Morphology Normal Sodium 142 Potassium 3.2 L Chloride 107 Carbon Dioxide 28.0 Anion Gap 7 BUN 32 H Creatinine 1.40 H Estimated GFR 63 L POC Glucose 78 Random Glucose 95 Calcium 7.8 L Total Bilirubin 0.9 AST 68 H ALT 42 Alkaline Phosphatase 64 Total Protein 6.3 L Albumin 1.7 L Anti-Proteinase 3 Anti-Myeloperoxidase HIV 1&2 Ab/P24 Ag 4thGn 11/25/17 11:35 WBC RBC Hgb Hct MCV MCH MCHC RDW Plt Count MPV Prelim Diff (Auto) Neut % (Auto) Lymph % (Auto) Nance % (Auto) Eos % (Auto) Baso % (Auto) Neut # (Auto) Lymph # (Auto) Nance # (Auto) Eos # (Auto) Baso # (Auto) WBC Differential Diff Scan Differential Comment Platelet Estimate Platelet Morphology RBC Morphology Sodium Potassium Chloride Carbon Dioxide Anion Gap BUN Creatinine Estimated GFR POC Glucose 135 H Random Glucose Calcium Total Bilirubin AST ALT Alkaline Phosphatase Total Protein Albumin Anti-Proteinase 3 Anti-Myeloperoxidase HIV 1&2 Ab/P24 Ag 4thGn Result Diagrams: 11/27/17 03:30 11/27/17 03:30 Microbiology: Microbiology 11/19/17 11:46 Aerobic Blood Culture - Final Blood - Peripheral No growth in 5 days Anaerobic Blood Culture - Final No growth in 5 days 11/19/17 08:20 Aerobic Blood Culture - Final Blood - Peripheral No growth in 5 days Anaerobic Blood Culture - Final No growth in 5 days Imaging: Abdomen/Pelvis CT 11/19/17 03:55 CONCLUSION: 1. Limited, suboptimal examination performed without intravenous or oral contrast. The study is degraded by motion artifact as well. 2. Abnormal bowel gas pattern with multiple small air-fluid levels. The bowel is suboptimally visualized and evaluated secondary to the lack of the intravenous and oral contrast as well as diffuse ascites. This may represent a gastroenteritis and/or ileus. Obstruction is less likely. 3. Diffuse ascites throughout the abdomen and pelvis. 4. Moderate size right effusion which is increased from the prior study. There is a new small left effusion. 5. Moderate cardiomegaly. 6. No definite gallstones identified. Head CT 11/19/17 03:55 CONCLUSION: 1. No acute hemorrhage or mass effect. 2. Mild motion and streak artifact. . Chest X-Ray 11/19/17 08:50 CONCLUSION: 1. ETT in good position. NGT beyond the GE junction. Central lines in good position. 2. Persistent atypical pulmonary edema pattern. Procedures: 11/19/2017: Right radial arterial line placement 11/19/2017: Endotracheal intubation 11/19/2017: Right subclavian triple-lumen catheter placement 11/19/2017 right IJ dialysis catheter placement . 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 He was never and has no children. He was previously in the [employer]. Spiritual: Traveling Buyer available. Legal: No living will or healthcare surrogate completed. Ethical issues impacting care: None noted. . Important Contacts: Mother: Angelina Medina healthcare proxy Currently living with daughter , Kaylie Gama. Sister: Bryan Sharp Sister: Kamille Verdugo Brother: Segundo Verdugo Brother: Carter Chavez Sister: Kaylie Gama - , C [phone] . Prognosis: His prognosis is poor. 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 He has suffered a decline in heart function since June 2017 when echocardiogram showed a 50-55% ejection fraction at the time of mitral valve repair. Patient continued to abuse cocaine and possibly other substances and when seen in [place] September 2017 for chest pain was found to have non-ischemic cardiomyopathy with a normal coronary artery circulation and ejection fraction of 20-25%. Echocardiogram at this admission shows cardiogenic shock with an EF less than 10%. He is now requiring inotropic support with milrinone and now has acute kidney injury requiring dialysis for both hyperkalemia and fluid overload. At this time he remains on life support, intubated, but is at elevated risk for continued complications and decline. He would be hospice appropriate if goals were consistent. . Code Status: No Code DNR (Do not reintubate) Plan: PLAN: Legal decision maker: At this time the patient is not capacitated for decision making and it is not certain that he will ever regain capacity. He was never and has no children. His mother would be his proxy decision maker per [place] statutes. She had previously been reported to me as demented and unable to make these decisions, however, her daughter, Kaylie, who is her caregiver disputes that and states that her mother is perfectly capable of making these decisions and wishes to be her son's decision-maker. In conversation with Ms. Medina, herself, she appeared appropriate and capable of decision-making. Goals: Aggressive short of no code. Telephone conversation with patient`s sister Kaylie Gama who stated that patient`s mother Angelina Medina was with her. Patient`s sister stated that patient`s mother would like goals to remain aggressive at this time and reiterated that he remains DNR. She mentioned that patient`s mother is not ready to "pull the plug" at this time. CODE STATUS: DO NOT RESUSCITATE SYMPTOMS: * Altered mental status: Presented with altered mental status, positive for cocaine, hypoglycemic, hyperkalemic, in fulminant heart failure, minimally able to make his needs known. Shortly thereafter he required intubation and sedation. He becomes agitated when sedation is lightened but does not follow commands. Possibly related to end stage heart failure. Questionable HIV diagnosis per his mother. Bedside critical care echo showed severe biventricular dysfunction with EF less than 10%, aortic valve opening only minimally due to low flow. HIV reactive on screening test, confirmatory test pending * Edema: Edema is improving on hemodialysis, which is on hold after today's ultrafiltration as patient's renal status is stabilizing and is having some urine output. Given his severe heart failure, borderline hypotension and impaired renal function, this is likely to be an ongoing problem. Last hemodialysis on 8/4 which was mainly for fluid overload and pulmonary edema. Palliative care will continue to follow the patient during hospital course as condition evolves, to assist patient/decision-maker with understanding of their medical conditions, weighing benefits/burdens of treatment options, for clarification of goals of treatment. Additionally will assist with any symptoms of palliative concern. . Attestation Attestation: To help prompt me to consider important information that might be impacting today's encounter and assessment, information from prior notes written by myself or my colleagues may have been "brought forward" into today's note. My signature on this note, however, is an attestation that I personally performed the exam, history, and/or decision-making noted today, and, unless otherwise indicated, the interactions with patient, family, and staff as well as the review of records all occurred today. I also attest that the listed assessment and stated plan reflect my best clinical judgment today based on the combination of historical information, prior notes, and today's exam/ interactions. When time spent is documented, it refers only to time spent today by the signer, or if indicated, combined time spent today by collaborating physician/nurse practitioner.
[2017-11-26] MEDS: Midazolam 50 MG/50 ML Inj 50 MG/50 ML BAG IV.CONT PRN ×5 (01:37→22:55)
[2017-11-26 04:57] LABS: Baso % (Auto) 1.3 % (0.0-2.0); Eos # (Auto) 0.2 th/mm3 (0.0-0.4); Eos % (Auto) 6.6 % (0.0-4.0); Hematocrit 46.1 % (39.0-51.0); Hemoglobin 14.9 gm/dL (13.0-17.0); Lymph # (Auto) 0.5 th/mm3 (1.0-4.8); Lymph % (Auto) 13.7 % (9.0-44.0); Mean Corpuscular HGB Conc 32.2 % (32.0-36.0); Mean Corpuscular Hemoglobin 28.6 pg (27.0-34.0); Mean Corpuscular Volume 88.8 fL (80.0-100.0); Mean Platelet Volume 8.9 fL (7.0-11.0); Mono # (Auto) 0.3 th/mm3 (0.0-0.9); Mono % (Auto) 8.1 % (0.0-8.0); Neut # (Auto) 2.5 th/mm3 (1.8-7.7); Neut % (Auto) 70.3 % (16.0-70.0); Platelet Count 114 th/mm3 (150-450); White Blood Count 3.6 th/mm3 (4.0-11.0)
[2017-11-26] MEDS: Heparin - SQ 10,000 UNITS/ML Vial SQ SCH ×3 (05:17→21:13)
[2017-11-26] MEDS: Milrinone Inj 20 MG in Sodium Chlor 0.9% Inj 80 ML IV.CONT SCH ×2 (06:31→23:02)
[2017-11-26] MEDS: Senna/Docusate Sodium 8.6/50 MG Tablet PO SCH ×2 (08:02→20:18)
[2017-11-26] MEDS: Famotidine PF Inj 20 MG/2 ML Vial IV.PUSH SCH (08:02)
--- NOTE | 2017-11-26 09:41 | P.PNNP ---
Subjective Interval history: Remains intubated and sedated. Lower extremity edema. No new labs today but creatinine has been stable and improving. <Karine Trucios - Last Filed: 11/26/17 13:57> Physical Exam Vital signs: Vital Signs 11/25/17 09:54 11/25/17 10:00 11/25/17 10:30 Temperature Pulse Rate 92 H 92 H 93 H Respiratory Rate 16 16 16 Blood Pressure 128/90 117/84 118/85 Pulse Oximetry 100 100 100 11/25/17 11:00 11/25/17 11:30 11/25/17 11:34 Temperature Pulse Rate 96 H 100 H Respiratory Rate 16 16 16 Blood Pressure 130/97 H 136/96 H Pulse Oximetry 100 100 100 11/25/17 12:00 11/25/17 12:30 11/25/17 13:00 Temperature 99.1 F Pulse Rate 102 H 106 H 96 H Respiratory Rate 16 19 16 Blood Pressure 131/92 H 140/95 H 110/75 Pulse Oximetry 100 100 98 11/25/17 13:31 11/25/17 14:00 11/25/17 14:17 Temperature Pulse Rate 98 H 105 H 101 H Respiratory Rate 20 16 16 Blood Pressure 127/90 120/94 H Pulse Oximetry 100 100 100 11/25/17 14:31 11/25/17 15:00 11/25/17 15:30 Temperature Pulse Rate 95 H 95 H 96 H Respiratory Rate 16 16 23 Blood Pressure 100/71 113/84 115/95 H Pulse Oximetry 97 99 100 11/25/17 16:00 11/25/17 16:08 11/25/17 16:30 Temperature Pulse Rate 96 H 93 H Respiratory Rate 16 16 16 Blood Pressure 116/85 110/81 Pulse Oximetry 100 100 100 11/25/17 17:00 11/25/17 17:30 11/25/17 18:00 Temperature Pulse Rate 98 H 100 H 104 H Respiratory Rate 26 H 16 16 Blood Pressure 120/84 134/93 H 128/90 Pulse Oximetry 100 100 100 11/25/17 18:30 11/25/17 19:00 11/25/17 19:11 Temperature Pulse Rate 108 H 104 H Respiratory Rate 16 21 20 Blood Pressure 127/89 122/87 Pulse Oximetry 100 100 11/25/17 19:31 11/25/17 20:00 11/25/17 20:31 Temperature 100.0 F H Pulse Rate 113 H 106 H 130 H Respiratory Rate 20 16 15 Blood Pressure 113/88 125/87 154/101 H Pulse Oximetry 100 100 100 11/25/17 21:00 11/25/17 21:30 11/25/17 22:00 Temperature Pulse Rate 118 H 111 H 108 H Respiratory Rate 16 16 16 Blood Pressure 131/95 H 127/87 99/79 L Pulse Oximetry 100 100 100 11/25/17 22:30 11/25/17 23:00 11/25/17 23:31 Temperature Pulse Rate 128 H 110 H 121 H Respiratory Rate 16 16 20 Blood Pressure 145/98 H 129/87 140/102 H Pulse Oximetry 100 100 100 11/26/17 00:00 11/26/17 00:30 11/26/17 01:00 Temperature 99.5 F Pulse Rate 116 H 112 H 110 H Respiratory Rate 22 18 17 Blood Pressure 135/97 H 130/93 H 131/87 Pulse Oximetry 100 100 100 11/26/17 01:31 11/26/17 02:00 11/26/17 02:30 Temperature Pulse Rate 103 H 109 H 102 H Respiratory Rate 16 30 H 25 H Blood Pressure 99/63 L 122/90 120/87 Pulse Oximetry 98 100 100 11/26/17 03:00 11/26/17 03:01 11/26/17 03:12 Temperature Pulse Rate 109 H 119 H Respiratory Rate 22 12 17 Blood Pressure 160/96 H Pulse Oximetry 100 100 100 11/26/17 03:31 11/26/17 04:00 11/26/17 07:27 Temperature 98.6 F Pulse Rate 102 H 104 H Respiratory Rate 16 16 18 Blood Pressure 108/74 137/95 H Pulse Oximetry 98 100 100 11/26/17 08:00 Temperature 99.5 F Pulse Rate 121 H Respiratory Rate 23 Blood Pressure 142/85 H Pulse Oximetry 100 Intake & Output 11/25/17 11/26/17 11/26/17 18:59 06:59 18:59 Intake Total 1074 / 1074 779.8 / 779.8 Output Total 300 / 300 550 / 550 Balance 774 / 774 229.8 / 229.8 Weight 66 kg Intake: IV 700 / 700 218.8 / 218.8 Versed Inj 50 mg In 50 ml @ 2 100 / 100 118.8 / 118.8 MG/HR 2 mls/hr IV.CONT TITRATE PRN Rx#:[id number] Primacor Inj 20 MG In NS Inj 80 100 / 100 100 / 100 ML @ 0.5 MCG/KG/MIN 10.5 mls/ hr IV.CONT .Q9H32M [facility] Rx#: [id number] Inj 1,000 ML @ 30 mls/hr 500 / 500 IV.SIG .Q24H [facility] Rx#:[id number] Oral 0 / 0 Tube Feeding 374 / 374 361 / 361 Water Bolus Amount 200 / 200 Output: Urine Amount (Catheter) 300 / 300 550 / 550 Indwelling Urethral Catheter 300 / 300 Straight 550 / 550 Narrative: GENERAL: Intubated. SKIN: Warm and dry. Right IJ HEAD: Normocephalic. EYES: No scleral icterus. No injection or drainage. NECK: Supple, trachea midline. No JVD or lymphadenopathy. CARDIOVASCULAR: Regular rate and rhythm without murmurs, gallops, or rubs. Edema lower extremity RESPIRATORY: Breath sounds decreased bilaterally. No accessory muscle use. Intubated GASTROINTESTINAL: Abdomen soft, non-tender, large. OG tube MUSCULOSKELETAL: No cyanosis - Urinary Catheter Management Indwelling Urethral Catheter Cath placed during this visit: yes, but has since been removed by the nurse Reason for continuing: Terminally ill/Comfort care Insertion date: 11/19/17 Insertion time: 06:43 Removal date: 11/25/17 Removal time: 15:19 Straight Cath placed during this visit: no <Karine Turcios - Last Filed: 11/26/17 13:57> Vital signs: Vital Signs 11/25/17 21:30 11/25/17 22:00 11/25/17 22:30 Temperature Pulse Rate 111 H 108 H 128 H Respiratory Rate 16 16 16 Blood Pressure 127/87 99/79 L 145/98 H Pulse Oximetry 100 100 100 11/25/17 23:00 11/25/17 23:31 11/26/17 00:00 Temperature 99.5 F Pulse Rate 110 H 121 H 116 H Respiratory Rate 16 20 22 Blood Pressure 129/87 140/102 H 135/97 H Pulse Oximetry 100 100 100 11/26/17 00:30 11/26/17 01:00 11/26/17 01:31 Temperature Pulse Rate 112 H 110 H 103 H Respiratory Rate 18 17 16 Blood Pressure 130/93 H 131/87 99/63 L Pulse Oximetry 100 100 98 11/26/17 02:00 11/26/17 02:30 11/26/17 03:00 Temperature Pulse Rate 109 H 102 H 109 H Respiratory Rate 30 H 25 H 22 Blood Pressure 122/90 120/87 Pulse Oximetry 100 100 100 11/26/17 03:01 11/26/17 03:12 11/26/17 03:31 Temperature Pulse Rate 119 H 102 H Respiratory Rate 12 17 16 Blood Pressure 160/96 H 108/74 Pulse Oximetry 100 100 98 11/26/17 04:00 11/26/17 07:27 11/26/17 08:00 Temperature 98.6 F 99.5 F Pulse Rate 104 H 121 H Respiratory Rate 16 18 23 Blood Pressure 137/95 H 142/85 H Pulse Oximetry 100 100 100 11/26/17 10:15 11/26/17 11:34 11/26/17 12:00 Temperature 98.9 F Pulse Rate 104 H Respiratory Rate 19 19 21 Blood Pressure 99/68 L Pulse Oximetry 96 99 100 11/26/17 16:00 11/26/17 16:20 11/26/17 19:41 Temperature 98.8 F Pulse Rate 107 H Respiratory Rate 21 16 16 Blood Pressure 131/68 Pulse Oximetry 100 100 99 11/26/17 20:00 Temperature 98.4 F Pulse Rate 95 H Respiratory Rate 16 Blood Pressure 92/70 L Pulse Oximetry 100 Intake & Output 11/26/17 11/26/17 11/27/17 06:59 18:59 06:59 Intake Total 779.8 / 779.8 1137 / 1137 Output Total 550 / 550 0 / 0 Balance 229.8 / 229.8 1137 / 1137 Weight 66 kg Intake: IV 218.8 / 218.8 554 / 554 Versed Inj 50 mg In 50 ml @ 2 118.8 / 118.8 100 / 100 MG/HR 2 mls/hr IV.CONT TITRATE PRN Rx#:[id number] Primacor Inj 20 MG In NS Inj 80 100 / 100 67 / 67 ML @ 0.5 MCG/KG/MIN 10.5 mls/ hr IV.CONT .Q9H32M [facility] Rx#: [id number] [id number] Inj 1,000 ML @ 30 mls/hr 387 / 387 IV.SIG .Q24H [facility] Rx#:[id number] Oral 0 / 0 0 / 0 Tube Feeding 361 / 361 383 / 383 Water Bolus Amount 200 / 200 200 / 200 Output: Urine Amount (Catheter) 550 / 550 0 / 0 Straight 550 / 550 0 / 0 Other: # Voids 3 # Incontinent Voids 3 Date of Last Bowel Movement 11/26/17 # Bowel Movements 1 - Urinary Catheter Management Indwelling Urethral Catheter Cath placed during this visit: no Straight Cath placed during this visit: no <Sumanth Cha - Last Filed: 11/26/17 21:27> Assessment and Plan - Assessment (1) Acute on chronic renal failure Code(s): N17.9 - Acute kidney failure, unspecified; N18.9 - Chronic kidney disease, unspecified Status: Acute Qualifiers: Acute renal failure type: unspecified Chronic kidney disease stage: unspecified stage Qualified Code(s): N17.9 - Acute kidney failure, unspecified ; N18.9 - Chronic kidney disease, unspecified Plan: Acute renal failure with a creatinine of 2.41 and potassium level of 7.0, with treatment repeat potassium level at 6.8 on day of consult. CHRISTINA most likely ATN with FeNa of 2.87 and urine osmolarity of 3.09 from possible cardiogenic shock and hypotension CT of abdomen with kidneys with normal in size and shape. No evidence of mass or hydronephrosis. Creatinine on 07/18 at 0.89. Creatinine stable at 1.4 yesterday Complements are low, ANCA normal, and RACHID is positive anti DNA DS pending Hemodialysis initiated 12/20 for resistant hyperkalemia and anasarca, has been discontinued Maintain strict I+O Avoid nephrotoxins including NSAIDS, aminoglycosides, and IV contrast Monitor urinary output, BMP, and watch for renal recovery. Labs in AM <Karine Turcios - Last Filed: 11/26/17 13:57> - Assessment (1) Acute on chronic renal failure Code(s): N17.9 - Acute kidney failure, unspecified; N18.9 - Chronic kidney disease, unspecified Status: Acute Qualifiers: Acute renal failure type: unspecified Chronic kidney disease stage: unspecified stage Qualified Code(s): N17.9 - Acute kidney failure, unspecified ; N18.9 - Chronic kidney disease, unspecified - Attending Attestation Patient seen and examined, agree with above. No new BMP, urine out put adequate. <Sumanth Cha - Last Filed: 11/26/17 21:27>
--- NOTE | 2017-11-26 12:14 | P.PNCC ---
Subjective Subjective Remarks/Hospital Course: 11/19: This is a 57yM with history of cardiomyopathy and an EF 20% who recently underwent mitral valve repair for severe MR. At that time, he had a preserved LVEF. However, he continued to use illicit cocaine, and on subsequent hospital admissions, his EF had fallen to 20%. He represents today with altered mental status, endorsing cocaine use. On further evaluation, he has a potassium of 7, Cr 2.4, AST/ALT 200/72, CK 1302, BNP 4307, co2 14. On my evaluation he is obtunded and agonally breathing, intermittently tachypneic. I performed bedside critical care echo which demonstrated a severe biventricular dysfunction and an EF < 10%. there was spontaneous echo contrast in the LV and the aortic valve appeared to open only minimally due to low-flow. Patient is grossly anasarcic with 3+ edema bilaterally up to the abdomen. he has JVD above the level of the mandible. I emergently intubated the patient (see separate procedure note for details). I emergently placed arterial, central lines, and dialysis catheter. potassium did not improve with medical therapy. we consulted nephrology for emergent HD. I also placed the patient on epinephrine drip for cardiogenic shock. due to the patient's mental status and clinical status, no additional information is available from him. ROS unobtainable. 11/20: Remains sedated, orally intubated on mechanical ventilation. Dialyzed this morning. Remains on pressors. 11/21: Remains sedated, orally intubated on mechanical ventilation. Hypothermic this morning. 11/22: Remains sedated, orally intubated on mechanical ventilation. Dialysis scheduled today. 11/23: Remains sedated, orally intubated on mechanical ventilation. On milrinone. 11/24, 11/25: Remains sedated, orally intubated on mechanical ventilation. Tolerating tube feeds. 11/26: Sedated, orally intubated on mechanical ventilation. Tolerating tube feeds. Objective Vital Signs / I&O: Vital Signs 11/25/17 12:30 11/25/17 13:00 11/25/17 13:31 Temperature Pulse Rate 106 H 96 H 98 H Respiratory Rate 19 16 20 Blood Pressure 140/95 H 110/75 127/90 Pulse Oximetry 100 98 100 11/25/17 14:00 11/25/17 14:17 11/25/17 14:31 Temperature Pulse Rate 105 H 101 H 95 H Respiratory Rate 16 16 16 Blood Pressure 120/94 H 100/71 Pulse Oximetry 100 100 97 11/25/17 15:00 11/25/17 15:30 11/25/17 16:00 Temperature Pulse Rate 95 H 96 H 96 H Respiratory Rate 16 23 16 Blood Pressure 113/84 115/95 H 116/85 Pulse Oximetry 99 100 100 11/25/17 16:08 11/25/17 16:30 11/25/17 17:00 Temperature Pulse Rate 93 H 98 H Respiratory Rate 16 16 26 H Blood Pressure 110/81 120/84 Pulse Oximetry 100 100 100 11/25/17 17:30 11/25/17 18:00 11/25/17 18:30 Temperature Pulse Rate 100 H 104 H 108 H Respiratory Rate 16 16 16 Blood Pressure 134/93 H 128/90 127/89 Pulse Oximetry 100 100 100 11/25/17 19:00 11/25/17 19:11 11/25/17 19:31 Temperature Pulse Rate 104 H 113 H Respiratory Rate 21 20 20 Blood Pressure 122/87 113/88 Pulse Oximetry 100 100 11/25/17 20:00 11/25/17 20:31 11/25/17 21:00 Temperature 100.0 F H Pulse Rate 106 H 130 H 118 H Respiratory Rate 16 15 16 Blood Pressure 125/87 154/101 H 131/95 H Pulse Oximetry 100 100 100 11/25/17 21:30 11/25/17 22:00 11/25/17 22:30 Temperature Pulse Rate 111 H 108 H 128 H Respiratory Rate 16 16 16 Blood Pressure 127/87 99/79 L 145/98 H Pulse Oximetry 100 100 100 11/25/17 23:00 11/25/17 23:31 11/26/17 00:00 Temperature 99.5 F Pulse Rate 110 H 121 H 116 H Respiratory Rate 16 20 22 Blood Pressure 129/87 140/102 H 135/97 H Pulse Oximetry 100 100 100 11/26/17 00:30 11/26/17 01:00 11/26/17 01:31 Temperature Pulse Rate 112 H 110 H 103 H Respiratory Rate 18 17 16 Blood Pressure 130/93 H 131/87 99/63 L Pulse Oximetry 100 100 98 11/26/17 02:00 11/26/17 02:30 11/26/17 03:00 Temperature Pulse Rate 109 H 102 H 109 H Respiratory Rate 30 H 25 H 22 Blood Pressure 122/90 120/87 Pulse Oximetry 100 100 100 11/26/17 03:01 11/26/17 03:12 11/26/17 03:31 Temperature Pulse Rate 119 H 102 H Respiratory Rate 12 17 16 Blood Pressure 160/96 H 108/74 Pulse Oximetry 100 100 98 11/26/17 04:00 11/26/17 07:27 11/26/17 08:00 Temperature 98.6 F 99.5 F Pulse Rate 104 H 121 H Respiratory Rate 16 18 23 Blood Pressure 137/95 H 142/85 H Pulse Oximetry 100 100 100 11/26/17 10:15 11/26/17 11:34 Temperature Pulse Rate Respiratory Rate 19 19 Blood Pressure Pulse Oximetry 96 99 Intake & Output 11/25/17 11/26/17 11/26/17 18:59 06:59 18:59 Intake Total 1074 / 1074 779.8 / 779.8 50 / 50 Output Total 300 / 300 550 / 550 Balance 774 / 774 229.8 / 229.8 50 / 50 Weight 66 kg Intake: IV 700 / 700 218.8 / 218.8 50 / 50 Versed Inj 50 mg In 50 ml @ 2 100 / 100 118.8 / 118.8 50 / 50 MG/HR 2 mls/hr IV.CONT TITRATE PRN Rx#:[id number] Primacor Inj 20 MG In NS Inj 80 100 / 100 100 / 100 ML @ 0.5 MCG/KG/MIN 10.5 mls/ hr IV.CONT .Q9H32M [facility] Rx#: [id number] D10W Inj 1,000 ML @ 30 mls/hr 500 / 500 IV.SIG .Q24H [facility] Rx#:[id number] Oral 0 / 0 Tube Feeding 374 / 374 361 / 361 Water Bolus Amount 200 / 200 Output: Urine Amount (Catheter) 300 / 300 550 / 550 Indwelling Urethral Catheter 300 / 300 Straight 550 / 550 Result Diagrams: 11/26/17 03:30 11/25/17 04:40 Objective Remarks: HEENT/ Neuro: Sedated, orally intubated, Pallor present, no icterus, tongue/ mucosa moist Neck: No JVD Chest/Pulm: on mech vent, good air entry bilaterally, no wheezing or crackles CVS: S1-S2 regular, no murmur GI/abdomen: soft, nontender, bowel sounds sluggish Extremities: warm bilaterally, trace edema Assessment and Plan - Assessment and Plan Plan: Assessment: 57yM with severe cardiomyopathy and ongoing cocaine abuse who presents in severe cardiogenic shock combined with active cocaine intoxication. Very critically ill, in extremis, in multiorgan failure. Overall, this is a patient whose cocaine use has complicated his cardiac problems to the point that this is now likely an end-stage process. will consult palliative care to assist the family, but this may be a fatal hospitalization for him due to his ongoing cocaine abuse and now multiorgan failure. Plan by systems: Neurologic: Acute toxic encephalopathy Acute cocaine intoxication Acute metabolic encephalopathy secondary to shock Sedation while intubated with daily sedation vacation. Versed infusion for goal RASS -2 Respiratory: Acute hypoxic and hypercarbic respiratory failure Acute severe pulmonary edema Probable Crack Lung Vent bundle Head of bed elevated Nebs Wean FiO2 for goal SPO2 greater than 90% Asymmetric pulmonary consolidation pattern is consistent with chronic crack cocaine use No SBT today given active shock dialysis for volume overload and pulmonary edema Cardiovascular: Cardiogenic shock Acute severe systolic congestive heart failure exacerbation Acute type II non-ST elevation myocardial infarction secondary to demand ischemia known prior EF 20% (09/2017), now bedside echo appears to be acutely < 10% likely secondary to chronic cocaine use superimposed on cardiomyopathy. emergent HD for fluid removal and preload optimization milrinone to assist with cardiac output. Off levophed and epinephrine drips. trend cvp trend lactates watch uop Renal: Acute kidney injury Most likely secondary to cardiogenic shock Smith has been placed Every hour urine outputs Emergent HD Nephrology consult -- Strict I/Os FEN/GI: Severe life-threatening hyperkalemia Severe intravascular volume overload Severe acute protein calorie malnutrition Lactic acidosis Severe anion gap metabolic acidosis Nephrology consulted with emergent dialysis Trend daily BMP, mag, phosphorus Hemodialysis per renal. Heme/ID: Daily CBC Hep C reactive, HIV reactive on screening test confirmatory test pending. Patient has severe diarrhea. Endocrine: Acute hypoglycemia, severe D10W at 30 miles an hour Frequent glycemic checks -- SSI Prophylaxis: GI Prophylaxis Pepcid IV DVT Prophylaxis -- SCDs Subcu heparin Lines: 11/19 right brachial arterial line 11/19 right subclavian 7 [place] triple-lumen catheter 11/19 right IJ 14 [place] 20 cm dialysis catheter 11/19 Smith Prognosis appears poor. Palliative care following to assist with deciding goals of therapy. This patient remains critically ill with one or more organ systems which are or may become a threat to life. I have spent in excess of 35 minutes discontinuously in the care and management of this patient. This time is exclusive of procedures, and includes, but is not limited to, evaluation of the patient, review of the medical record, discussions with family, consultants, nursing staff, or respiratory therapy, and documentation in the medical record.
[2017-11-26 15:53] LABS: HIV 1 Antibody Positive (Negative); HIV 2 Antibody Indeterminate (Negative)
[2017-11-26] MEDS: Morphine Inj 4 MG/ML Vial IV.PUSH PRN (18:24)
[2017-11-27] MEDS: Midazolam 50 MG/50 ML Inj 50 MG/50 ML BAG IV.CONT PRN ×4 (04:28→22:37)
[2017-11-27 05:43] LABS: Baso % (Auto) 0.9 % (0.0-2.0); Eos # (Auto) 0.3 th/mm3 (0.0-0.4); Eos % (Auto) 7.1 % (0.0-4.0); Hematocrit 42.6 % (39.0-51.0); Hemoglobin 13.8 gm/dL (13.0-17.0); Lymph # (Auto) 0.6 th/mm3 (1.0-4.8); Lymph % (Auto) 15.8 % (9.0-44.0); Mean Corpuscular HGB Conc 32.4 % (32.0-36.0); Mean Corpuscular Volume 89.6 fL (80.0-100.0); Mean Platelet Volume 9.2 fL (7.0-11.0); Mono # (Auto) 0.3 th/mm3 (0.0-0.9); Mono % (Auto) 8.1 % (0.0-8.0); Neut # (Auto) 2.4 th/mm3 (1.8-7.7); Neut % (Auto) 68.1 % (16.0-70.0); Platelet Count 104 th/mm3 (150-450); Red Blood Count 4.76 mil/mm3 (4.50-5.90); Red Cell Distribution Width 15.3 % (11.6-17.2); White Blood Count 3.6 th/mm3 (4.0-11.0)
[2017-11-27 06:10] LABS: Albumin 1.7 g/dL (3.4-5.0); Calcium 7.9 mg/dL (8.5-10.1); Phosphorus 2.1 mg/dL (2.5-4.9); Potassium 3.4 meq/L (3.5-5.1)
[2017-11-27] MEDS: Famotidine PF Inj 20 MG/2 ML Vial IV.PUSH SCH (08:17)
[2017-11-27] MEDS: Senna/Docusate Sodium 8.6/50 MG Tablet PO SCH ×2 (08:17→20:00)
[2017-11-27] MEDS ORDERED: Potassium Phosphate 500 MG Soluble Tablet PO PRN (08:52)
[2017-11-27] MEDS ORDERED: Magnesium Sulfate Inj 2 GM in Sodium Chlor 0.9% Inj 96 ML IV.SIG PRN (08:52)
[2017-11-27] MEDS ORDERED: Potassium Chlor 40 mEq Premix 40 MEQ/100 ML PIGGYBACK IV.SIG PRN ×2 (08:52)
[2017-11-27] MEDS ORDERED: Potassium Phosphate Inj 30 MMOL in Sodium Chlor 0.9% Inj 250 ML IV.SIG PRN (08:52)
[2017-11-27] MEDS ORDERED: Magnesium Oxide 400 MG Tablet PO PRN (08:52)
[2017-11-27] MEDS ORDERED: Magnesium Sulfate Inj 4 GM in Sodium Chlor 0.9% Inj 92 ML IV.SIG PRN (08:52)
[2017-11-27] MEDS ORDERED: Potassium Chlor 20 mEq Premix 20 MEQ/100 ML PIGGYBACK IV.SIG PRN ×2 (08:52)
[2017-11-27] MEDS ORDERED: Sodium Phosphate Inj 30 MMOL in Sodium Chlor 0.9% Inj 250 ML IV.SIG PRN (08:52)
[2017-11-27] MEDS ORDERED: Potassium Chloride 25 MEQ Effervescent Tablet PO PRN (08:52)
--- NOTE | 2017-11-27 09:09 | P.PNCC ---
Subjective Subjective Remarks/Hospital Course: 11/19: This is a 57yM with history of cardiomyopathy and an EF 20% who recently underwent mitral valve repair for severe MR. At that time, he had a preserved LVEF. However, he continued to use illicit cocaine, and on subsequent hospital admissions, his EF had fallen to 20%. He represents today with altered mental status, endorsing cocaine use. On further evaluation, he has a potassium of 7, Cr 2.4, AST/ALT 200/72, CK 1302, BNP 4307, co2 14. On my evaluation he is obtunded and agonally breathing, intermittently tachypneic. I performed bedside critical care echo which demonstrated a severe biventricular dysfunction and an EF < 10%. there was spontaneous echo contrast in the LV and the aortic valve appeared to open only minimally due to low-flow. Patient is grossly anasarcic with 3+ edema bilaterally up to the abdomen. he has JVD above the level of the mandible. I emergently intubated the patient (see separate procedure note for details). I emergently placed arterial, central lines, and dialysis catheter. potassium did not improve with medical therapy. we consulted nephrology for emergent HD. I also placed the patient on epinephrine drip for cardiogenic shock. due to the patient's mental status and clinical status, no additional information is available from him. ROS unobtainable. 11/20: Remains sedated, orally intubated on mechanical ventilation. Dialyzed this morning. Remains on pressors. 11/21: Remains sedated, orally intubated on mechanical ventilation. Hypothermic this morning. 11/22: Remains sedated, orally intubated on mechanical ventilation. Dialysis scheduled today. 11/23: Remains sedated, orally intubated on mechanical ventilation. On milrinone. 11/24, 11/25: Remains sedated, orally intubated on mechanical ventilation. Tolerating tube feeds. 11/26: Sedated, orally intubated on mechanical ventilation. Tolerating tube feeds. 11/27 No events overnight. Sedated with Versed and intubated. On Milrinone drip. Objective Vital Signs / I&O: Vital Signs 11/26/17 10:15 11/26/17 11:34 11/26/17 12:00 Temperature 98.9 F Pulse Rate 104 H Respiratory Rate 19 19 21 Blood Pressure 99/68 L Pulse Oximetry 96 99 100 11/26/17 16:00 11/26/17 16:20 11/26/17 19:41 Temperature 98.8 F Pulse Rate 107 H Respiratory Rate 21 16 16 Blood Pressure 131/68 Pulse Oximetry 100 100 99 11/26/17 20:00 11/26/17 23:33 11/27/17 00:00 Temperature 98.4 F 98.4 F Pulse Rate 95 H 104 H Respiratory Rate 16 16 16 Blood Pressure 92/70 L 125/84 Pulse Oximetry 100 100 100 11/27/17 03:39 11/27/17 04:00 11/27/17 07:24 Temperature 98.3 F Pulse Rate 104 H Respiratory Rate 16 16 15 Blood Pressure 116/87 Pulse Oximetry 98 Intake & Output 11/26/17 11/27/17 11/27/17 18:59 06:59 18:59 Intake Total 1137 / 1137 468 / 468 Output Total 0 / 0 175 / 175 Balance 1137 / 1137 293 / 293 Weight 67.5 kg Intake: IV 554 / 554 133 / 133 Versed Inj 50 mg In 50 ml @ 2 100 / 100 100 / 100 MG/HR 2 mls/hr IV.CONT TITRATE PRN Rx#:[id number] Primacor Inj 20 MG In NS Inj 80 67 / 67 33 / 33 ML @ 0.5 MCG/KG/MIN 10.5 mls/ hr IV.CONT .Q9H32M [facility] Rx#: [id number] D10W Inj 1,000 ML @ 30 mls/hr 387 / 387 IV.SIG .Q24H [facility] Rx#:[id number] Oral 0 / 0 Tube Feeding 383 / 383 335 / 335 Water Bolus Amount 200 / 200 Output: Urine Amount (Catheter) 0 / 0 175 / 175 Condom 175 / 175 Straight 0 / 0 Other: # Voids 3 # Incontinent Voids 3 Date of Last Bowel Movement 11/26/17 # Bowel Movements 1 0 Result Diagrams: 11/27/17 03:30 11/27/17 03:30 Other Results: Laboratory Results - last 12 hr 11/27/17 11/27/17 03:30 03:30 WBC 3.6 L RBC 4.76 Hgb 13.8 Hct 42.6 MCV 89.6 MCH 29.0 MCHC 32.4 RDW 15.3 Plt Count 104 L MPV 9.2 Neut % (Auto) 68.1 Lymph % (Auto) 15.8 [place] % (Auto) 8.1 H Eos % (Auto) 7.1 H Baso % (Auto) 0.9 Neut # (Auto) 2.4 Lymph # (Auto) 0.6 L [place] # (Auto) 0.3 Eos # (Auto) 0.3 Baso # (Auto) 0.0 WBC Differential . Differential Comment Auto diff final Sodium 142 Potassium 3.4 L Chloride 106 Carbon Dioxide 27.0 Anion Gap 9 BUN 28 H Creatinine 1.15 Estimated GFR 79 L Random Glucose 83 Calcium 7.9 L Phosphorus 2.1 L Albumin 1.7 L Imaging: Abdomen/Pelvis CT 11/19/17 03:55 CONCLUSION: 1. Limited, suboptimal examination performed without intravenous or oral contrast. The study is degraded by motion artifact as well. 2. Abnormal bowel gas pattern with multiple small air-fluid levels. The bowel is suboptimally visualized and evaluated secondary to the lack of the intravenous and oral contrast as well as diffuse ascites. This may represent a gastroenteritis and/or ileus. Obstruction is less likely. 3. Diffuse ascites throughout the abdomen and pelvis. 4. Moderate size right effusion which is increased from the prior study. There is a new small left effusion. 5. Moderate cardiomegaly. 6. No definite gallstones identified. Head CT 11/19/17 03:55 CONCLUSION: 1. No acute hemorrhage or mass effect. 2. Mild motion and streak artifact. . Chest X-Ray 11/19/17 08:50 CONCLUSION: 1. ETT in good position. NGT beyond the GE junction. Central lines in good position. 2. Persistent atypical pulmonary edema pattern. Objective Remarks: GENERAL: Patient is 57 yo intubated and sedated SKIN: Warm and dry. HEAD: Normocephalic. EYES: No scleral icterus. No injection or drainage. NECK: Supple, trachea midline. No JVD or lymphadenopathy. CARDIOVASCULAR: Regular rate and rhythm without murmurs, gallops, or rubs. RESPIRATORY: Breath sounds equal bilaterally. No accessory muscle use. GASTROINTESTINAL: Abdomen soft, non-tender, nondistended. MUSCULOSKELETAL: No cyanosis, or edema. Neuro: Sedated Assessment and Plan - Assessment and Plan Plan: Plan by systems: Neurologic: Acute toxic encephalopathy Acute cocaine intoxication Acute metabolic encephalopathy secondary to shock On Versed drip for sedation. Daily sedation vacation. Monitor neuro status. Respiratory: Acute hypoxic and hypercarbic respiratory failure Acute severe pulmonary edema Probable Crack Lung Continue with vent support keep sats >92% On PRVC RR 16, TV550, IT:1.1, PEEP:5, FIO2: 30% Bronchodilators. Check CXR and ABG SBT daily as maria elena. Asymmetric pulmonary consolidation pattern is consistent with chronic crack cocaine use Cardiovascular: s/p Cardiogenic shock Acute severe systolic congestive heart failure exacerbation Acute type II non-ST elevation myocardial infarction secondary to demand ischemia known prior EF 20% (09/2017), check 2D echo likely secondary to chronic cocaine use superimposed on cardiomyopathy. Monitor HR and BP keep MAP>65mmHg. Place on Coreg 3.125mg BID On Milrinone drip. Lactic acid resolved 1.1 on 11/20 Renal: Acute kidney injury- resolved Monitor renal function, I/O's, electrolytes replacement per protocol. Vascath d/c yesterday 11/26. Will need K replacement today. Place on Lasix 40mg IV daily Renal is following. FEN/GI: Severe acute protein calorie malnutrition Change tube feeds- Glucerna 1.5 with goal rate 45ml/hr Heme/ID: Daily CBC Hep C reactive, HIV reactive on screening test On no abx, Monitor for signs of infections ( Fever, WBC). Check UA with cx if needed, sputum cx ID: Endocrine: Acute hypoglycemia, severe D10W at [address] on SSI with accuchecks Prophylaxis: GI Prophylaxis Pepcid IV DVT Prophylaxis -- SCDs Subcu heparin Lines: 11/19 right brachial arterial line 11/19 right subclavian 7 [place] triple-lumen catheter 11/19 right IJ 14 [place] 20 cm dialysis catheter d/c 11/26 11/19 Smith Prognosis appears poor. Palliative care following to assist with deciding goals of therapy. CCT 30 mins
--- NOTE | 2017-11-27 10:00 | XR ---
EXAM DATE: 11/27/2017 9:43 AM EDT AGE/SEX: 57 years / Male INDICATIONS: VDRF. CLINICAL DATA: This is the patient's subsequent encounter. Patient reports that signs and symptoms h ave been present for 1 week and indicates a pain score of Nonresponsive. MEDICAL/SURGICAL HISTORY: . Hypertension. Cardiovascular disease. Diabetes. . Coronary artery stent COMPARISON: [facility] – [place], CHEST 1V SINGLE AP, 11/19/2017. . FINDINGS: The heart is prominent. Mild to moderate pulmonary vascular congestion is noted. Tiny bilateral pleur al effusions are noted. The endotracheal tube has its tip in good position 3 cm above the [place]. A n asogastric tube has tip below the diaphragm. Right subclavian central line has tip in superior vena c christy. There is no pneumothorax. CONCLUSION: 1. Mild to moderate pulmonary vascular congestion. 2. Cardiomegaly. 3. Tiny bilateral pleural effusions. 4. Multiple tubes and lines are stable. Electronically signed by: Ankush Parrish MD 11/27/2017 9:59 AM EDT
--- NOTE | 2017-11-27 10:09 | P.PNNP ---
Subjective Interval history: Remains intubated and sedated. Creatinine has improved at 1.15 today. <RaffaeleleonidMeliKarine - Last Filed: 11/27/17 11:16> Physical Exam Vital signs: Vital Signs 11/26/17 10:15 11/26/17 11:34 11/26/17 12:00 Temperature 98.9 F Pulse Rate 104 H Respiratory Rate 19 19 21 Blood Pressure 99/68 L Pulse Oximetry 96 99 100 11/26/17 16:00 11/26/17 16:20 11/26/17 19:41 Temperature 98.8 F Pulse Rate 107 H Respiratory Rate 21 16 16 Blood Pressure 131/68 Pulse Oximetry 100 100 99 11/26/17 20:00 11/26/17 21:30 11/26/17 22:00 Temperature 98.4 F Pulse Rate 95 H 99 H Respiratory Rate 16 16 Blood Pressure 92/70 L 120/87 114/79 Pulse Oximetry 100 100 11/26/17 22:30 11/26/17 23:00 11/26/17 23:30 Temperature Pulse Rate 95 H 96 H 93 H Respiratory Rate 16 16 16 Blood Pressure 109/72 116/80 118/83 Pulse Oximetry 99 100 100 11/26/17 23:33 11/27/17 00:00 11/27/17 00:30 Temperature 98.4 F Pulse Rate 104 H 100 H Respiratory Rate 16 16 16 Blood Pressure 125/84 120/84 Pulse Oximetry 100 100 100 11/27/17 01:00 11/27/17 01:30 11/27/17 02:00 Temperature Pulse Rate 104 H 100 H 106 H Respiratory Rate 16 16 16 Blood Pressure 114/85 114/82 Pulse Oximetry 100 100 100 11/27/17 02:01 11/27/17 02:30 11/27/17 03:00 Temperature Pulse Rate 109 H 98 H 96 H Respiratory Rate 16 16 16 Blood Pressure 136/93 H 104/72 111/76 Pulse Oximetry 100 100 100 11/27/17 03:30 11/27/17 03:39 11/27/17 04:00 Temperature 98.3 F Pulse Rate 117 H 109 H Respiratory Rate 22 16 16 Blood Pressure 117/97 H 116/87 Pulse Oximetry 100 100 11/27/17 04:01 11/27/17 04:30 11/27/17 05:00 Temperature Pulse Rate 109 H 121 H 103 H Respiratory Rate 16 16 16 Blood Pressure 116/87 138/99 H 119/80 Pulse Oximetry 100 100 99 11/27/17 05:30 11/27/17 06:00 11/27/17 06:30 Temperature Pulse Rate 110 H 104 H 122 H Respiratory Rate 20 16 16 Blood Pressure 126/86 118/80 124/92 H Pulse Oximetry 100 100 100 11/27/17 07:00 11/27/17 07:24 11/27/17 07:31 Temperature Pulse Rate 101 H 127 H Respiratory Rate 16 15 12 Blood Pressure 118/80 123/88 Pulse Oximetry 100 100 11/27/17 08:00 11/27/17 08:30 11/27/17 09:00 Temperature 98.4 F Pulse Rate 114 H 102 H 123 H Respiratory Rate 16 16 18 Blood Pressure 100/71 102/72 Pulse Oximetry 98 100 100 11/27/17 09:01 Temperature Pulse Rate 121 H Respiratory Rate 18 Blood Pressure 139/98 H Pulse Oximetry 100 Intake & Output 11/26/17 11/27/17 11/27/17 18:59 06:59 18:59 Intake Total 1137 / 1137 468 / 468 Output Total 0 / 0 175 / 175 Balance 1137 / 1137 293 / 293 Weight 67.5 kg Intake: IV 554 / 554 133 / 133 Versed Inj 50 mg In 50 ml @ 2 100 / 100 100 / 100 MG/HR 2 mls/hr IV.CONT TITRATE PRN Rx#:[id number] Primacor Inj 20 MG In NS Inj 80 67 / 67 33 / 33 ML @ 0.5 MCG/KG/MIN 10.5 mls/ hr IV.CONT .Q9H32M [facility] Rx#: [id number] D10W Inj 1,000 ML @ 30 mls/hr 387 / 387 IV.SIG .Q24H [facility] Rx#:[id number] Oral 0 / 0 Tube Feeding 383 / 383 335 / 335 Water Bolus Amount 200 / 200 Output: Urine Amount (Catheter) 0 / 0 175 / 175 Condom 175 / 175 Straight 0 / 0 Other: # Voids 3 # Incontinent Voids 3 Date of Last Bowel Movement 11/26/17 # Bowel Movements 1 0 Narrative: GENERAL: Intubated. SKIN: Warm and dry. HEAD: Normocephalic. EYES: No scleral icterus. No injection or drainage. NECK: Supple, trachea midline. No JVD or lymphadenopathy. CARDIOVASCULAR: Regular rate and rhythm without murmurs, gallops, or rubs. Edema lower extremity, mild RESPIRATORY: Breath sounds decreased bilaterally. No accessory muscle use. Intubated GASTROINTESTINAL: Abdomen soft, non-tender, large. OG tube MUSCULOSKELETAL: No cyanosis - Urinary Catheter Management Indwelling Urethral Catheter Cath placed during this visit: yes, but has since been removed by the nurse Reason for continuing: Terminally ill/Comfort care Insertion date: 11/19/17 Insertion time: 06:43 Removal date: 11/25/17 Removal time: 15:19 Straight Cath placed during this visit: no Condom Cath placed during this visit: no <Karine Turcios - Last Filed: 11/27/17 11:16> Vital signs: Vital Signs 11/26/17 21:30 11/26/17 22:00 11/26/17 22:30 Temperature Pulse Rate 99 H 95 H Respiratory Rate 16 16 Blood Pressure 120/87 114/79 109/72 Pulse Oximetry 100 99 11/26/17 23:00 11/26/17 23:30 11/26/17 23:33 Temperature Pulse Rate 96 H 93 H Respiratory Rate 16 16 16 Blood Pressure 116/80 118/83 Pulse Oximetry 100 100 100 11/27/17 00:00 11/27/17 00:30 11/27/17 01:00 Temperature 98.4 F Pulse Rate 104 H 100 H 104 H Respiratory Rate 16 16 16 Blood Pressure 125/84 120/84 114/85 Pulse Oximetry 100 100 100 11/27/17 01:30 11/27/17 02:00 11/27/17 02:01 Temperature Pulse Rate 100 H 106 H 109 H Respiratory Rate 16 16 16 Blood Pressure 114/82 136/93 H Pulse Oximetry 100 100 100 11/27/17 02:30 11/27/17 03:00 11/27/17 03:30 Temperature Pulse Rate 98 H 96 H 117 H Respiratory Rate 16 16 22 Blood Pressure 104/72 111/76 117/97 H Pulse Oximetry 100 100 100 11/27/17 03:39 11/27/17 04:00 11/27/17 04:01 Temperature 98.3 F Pulse Rate 109 H 109 H Respiratory Rate 16 16 16 Blood Pressure 116/87 116/87 Pulse Oximetry 100 100 11/27/17 04:30 11/27/17 05:00 11/27/17 05:30 Temperature Pulse Rate 121 H 103 H 110 H Respiratory Rate 16 16 20 Blood Pressure 138/99 H 119/80 126/86 Pulse Oximetry 100 99 100 11/27/17 06:00 11/27/17 06:30 11/27/17 07:00 Temperature Pulse Rate 104 H 122 H 101 H Respiratory Rate 16 16 16 Blood Pressure 118/80 124/92 H 118/80 Pulse Oximetry 100 100 100 11/27/17 07:24 11/27/17 07:31 11/27/17 08:00 Temperature 98.4 F Pulse Rate 127 H 114 H Respiratory Rate 15 12 16 Blood Pressure 123/88 100/71 Pulse Oximetry 100 98 11/27/17 08:30 11/27/17 09:00 11/27/17 09:01 Temperature Pulse Rate 102 H 123 H 121 H Respiratory Rate 16 18 18 Blood Pressure 102/72 139/98 H Pulse Oximetry 100 100 100 11/27/17 09:30 11/27/17 10:00 11/27/17 10:30 Temperature Pulse Rate 104 H 104 H 112 H Respiratory Rate 17 19 19 Blood Pressure 108/71 112/78 118/84 Pulse Oximetry 100 100 100 11/27/17 11:00 11/27/17 11:01 11/27/17 11:13 Temperature Pulse Rate 121 H 127 H 111 H Respiratory Rate 27 H 22 16 Blood Pressure 137/83 Pulse Oximetry 100 93 L 11/27/17 11:14 11/27/17 11:30 11/27/17 12:00 Temperature 98.8 F Pulse Rate 109 H 109 H Respiratory Rate 16 16 20 Blood Pressure 98/68 L 115/81 Pulse Oximetry 98 97 100 11/27/17 12:30 11/27/17 13:00 11/27/17 13:27 Temperature Pulse Rate 106 H 115 H Respiratory Rate 25 H 17 16 Blood Pressure 116/76 116/81 Pulse Oximetry 99 100 100 11/27/17 13:33 11/27/17 14:00 11/27/17 14:30 Temperature Pulse Rate 124 H 125 H 107 H Respiratory Rate 34 H 17 7 L Blood Pressure 113/93 H 132/87 95/63 L Pulse Oximetry 100 99 98 08/08/18 15:00 11/27/17 15:03 11/27/17 15:07 Temperature Pulse Rate 128 H 119 H Respiratory Rate 20 21 17 Blood Pressure 126/81 Pulse Oximetry 100 100 100 11/27/17 15:30 11/27/17 16:00 11/27/17 16:47 Temperature 99.7 F H Pulse Rate 141 H 141 H 117 H Respiratory Rate 18 17 17 Blood Pressure 146/99 H 137/93 H 118/80 Pulse Oximetry 100 100 100 11/27/17 17:00 11/27/17 19:37 11/27/17 20:00 Temperature 99 F Pulse Rate 119 H 100 H 116 H Respiratory Rate 18 16 16 Blood Pressure 117/80 104/72 Pulse Oximetry 100 98 97 Intake & Output 11/27/17 11/27/17 11/28/17 06:59 18:59 06:59 Intake Total 468 / 468 1554 / 1554 Output Total 175 / 175 1550 / 1550 Balance 293 / 293 4 / 4 Weight 67.5 kg Intake: IV 133 / 133 860 / 860 Versed Inj 50 mg In 50 ml @ 2 100 / 100 100 / 100 MG/HR 2 mls/hr IV.CONT TITRATE PRN Rx#:[id number] Primacor Inj 20 MG In NS Inj 80 33 / 33 ML @ 0.5 MCG/KG/MIN 10.5 mls/ hr IV.CONT .Q9H32M [facility] Rx#: [id number] D10W Inj 1,000 ML @ 30 mls/hr 500 / 500 IV.SIG .Q24H [facility] Rx#:[id number] Potassium Phosphate Inj 30 MMOL 260 / 260 In NS Inj 250 ML @ 42 mls/hr IV.SIG UNSCH PRN Rx#:[id number] Tube Feeding 335 / 335 694 / 694 Output: Urine Amount (Catheter) 175 / 175 1550 / 1550 Condom 175 / 175 1200 / 1200 Straight 350 / 350 Other: Date of Last Bowel Movement 11/27/17 # Bowel Movements 0 - Urinary Catheter Management Indwelling Urethral Catheter Cath placed during this visit: no Straight Cath placed during this visit: no Condom Cath placed during this visit: no <Sumanth Cha - Last Filed: 11/27/17 21:27> Assessment and Plan - Assessment (1) Acute on chronic renal failure Code(s): N17.9 - Acute kidney failure, unspecified; N18.9 - Chronic kidney disease, unspecified Status: Acute Qualifiers: Acute renal failure type: unspecified Chronic kidney disease stage: unspecified stage Qualified Code(s): N17.9 - Acute kidney failure, unspecified ; N18.9 - Chronic kidney disease, unspecified Plan: Acute renal failure with a creatinine of 2.41 and potassium level of 7.0, with treatment repeat potassium level at 6.8 on day of consult. CHRISTINA most likely ATN with FeNa of 2.87 and urine osmolarity of 3.09 from possible cardiogenic shock and hypotension CT of abdomen with kidneys with normal in size and shape. No evidence of mass or hydronephrosis. Creatinine on 07/18 at 0.89. Creatinine stable at 1.15 Complements are low, ANCA normal, and RACHID is positive anti DNA DS pending Hemodialysis initiated 12/20 for resistant hyperkalemia and anasarca, has been discontinued Maintain strict I+O Avoid nephrotoxins including NSAIDS, aminoglycosides, and IV contrast Monitor urinary output and BMP With improvement in creatinine will see patient PRN only <Karine Turcios - Last Filed: 11/27/17 11:16> - Assessment (1) Acute on chronic renal failure Code(s): N17.9 - Acute kidney failure, unspecified; N18.9 - Chronic kidney disease, unspecified Status: Acute Qualifiers: Acute renal failure type: unspecified Chronic kidney disease stage: unspecified stage Qualified Code(s): N17.9 - Acute kidney failure, unspecified ; N18.9 - Chronic kidney disease, unspecified - Attending Attestation Patient seen and examined, agree with above. Creatinine is better, will follow PRN. <Sumanth Cha - Last Filed: 11/27/17 21:27>
--- NOTE | 2017-11-27 12:26 | P.PNPAL ---
Reason for Visit Reason for visit: a. To assist with evaluation and management of symptoms including: Altered mental status, edema b. To assist medical decision maker(s) with: better understanding of current medical conditions; weighing benefits/burdens of medical treatment options; making medical treatment decisions. Subjective Subjective/Interval History: Follow up medically necessary for symptom management and further clarification of goals. Patient remains on intensive care unit, intubated, sedated on mechanical ventilation. Per bedside RN, patient only lasted for 12 minutes on CPAP trial, patient gets tachycardic and tachypneic. Patient is on FIO2 30% WITH O2 saturation in the mid to high 90s. Patient is currently on Midazolam infusion at 10mg/hr and remains on Milrinone infusion at 0.25mcg/kg/min. Patient has facial edema, 2+ edema to bilateral upper extremities and 3+ edema to bilateral lower extremities. Report form RN that she will administer Furosemide as ordered. Vas cath discontinued yesterday 11/26. Laboratory workup today revealing WBC 3.6, hemoglobin 13.8, hematocrit 42.6, platelet count 104, sodium 142, potassium 3.4, BUN/creatinine 28/1.15, calcium 7.9, phosphorus 2.1, albumin 1.7. Nephrology following. Met with patient`s sister Kaylie and patient`s mother at bedside. Updated on patient`s current medical status. Expressed concern that patient is failing CPAP. Discussed most likely decision on progressing with tracheotomy and PEG placement in the near future if patient is not able to be medically extubated. Discussed most likely need for placement if by any chance patient survives this hospitalization. Patient`s mother expressed that she would want to take her son home instead. Patient`s sister Kaylie explained to her mother that patient even if patient is trached and pegged that will not resolve his cardiac problems , and there is no point to prolong his suffering with proceeding with tracheotomy and PEG placement. After a long discussion with patient`s sister and mother, patient`s mother decided that she would like to give patient a week to see if he can be medically extubated. If patient is not able to be medically extubated, she is leaning more towards compassionate withdrawal from life support. Introduced hospice philosophy and benefits. Family receptive to transitioning patient to comfort care through hospice services if they choose to proceed with compassionate withdrawal from life support. Patient`s mother struggling with making a concrete decision. Kaylie (patient`s sister) is very supportive and understands patient`s medical condition and complications he will most likely face. Patients` sister stated that she knows patient will not want to have a trach and PEG, if he is given the opportunity to choose what he wants. Case discussed with bedside RN and Dr. Bee. Family/Friend Interactions: No family at bedside. Advance Directives Living Will: Never completed Health Care Surrogate: Never completed Durable Power of Operations Support Specialist: Never completed Objective Vital Signs: Vital Signs 11/26/17 16:00 11/26/17 16:20 11/26/17 19:41 Temperature 98.8 F Pulse Rate 107 H Respiratory Rate 21 16 16 Blood Pressure 131/68 Pulse Oximetry 100 100 99 11/26/17 20:00 11/26/17 21:30 11/26/17 22:00 Temperature 98.4 F Pulse Rate 95 H 99 H Respiratory Rate 16 16 Blood Pressure 92/70 L 120/87 114/79 Pulse Oximetry 100 100 11/26/17 22:30 11/26/17 23:00 11/26/17 23:30 Temperature Pulse Rate 95 H 96 H 93 H Respiratory Rate 16 16 16 Blood Pressure 109/72 116/80 118/83 Pulse Oximetry 99 100 100 11/26/17 23:33 11/27/17 00:00 11/27/17 00:30 Temperature 98.4 F Pulse Rate 104 H 100 H Respiratory Rate 16 16 16 Blood Pressure 125/84 120/84 Pulse Oximetry 100 100 100 11/27/17 01:00 11/27/17 01:30 11/27/17 02:00 Temperature Pulse Rate 104 H 100 H 106 H Respiratory Rate 16 16 16 Blood Pressure 114/85 114/82 Pulse Oximetry 100 100 100 11/27/17 02:01 11/27/17 02:30 11/27/17 03:00 Temperature Pulse Rate 109 H 98 H 96 H Respiratory Rate 16 16 16 Blood Pressure 136/93 H 104/72 111/76 Pulse Oximetry 100 100 100 11/27/17 03:30 11/27/17 03:39 11/27/17 04:00 Temperature 98.3 F Pulse Rate 117 H 109 H Respiratory Rate 22 16 16 Blood Pressure 117/97 H 116/87 Pulse Oximetry 100 100 11/27/17 04:01 11/27/17 04:30 11/27/17 05:00 Temperature Pulse Rate 109 H 121 H 103 H Respiratory Rate 16 16 16 Blood Pressure 116/87 138/99 H 119/80 Pulse Oximetry 100 100 99 11/27/17 05:30 11/27/17 06:00 11/27/17 06:30 Temperature Pulse Rate 110 H 104 H 122 H Respiratory Rate 20 16 16 Blood Pressure 126/86 118/80 124/92 H Pulse Oximetry 100 100 100 11/27/17 07:00 11/27/17 07:24 11/27/17 07:31 Temperature Pulse Rate 101 H 127 H Respiratory Rate 16 15 12 Blood Pressure 118/80 123/88 Pulse Oximetry 100 100 11/27/17 08:00 11/27/17 08:30 11/27/17 09:00 Temperature 98.4 F Pulse Rate 114 H 102 H 123 H Respiratory Rate 16 16 18 Blood Pressure 100/71 102/72 Pulse Oximetry 98 100 100 11/27/17 09:01 11/27/17 11:13 11/27/17 11:14 Temperature Pulse Rate 121 H 111 H Respiratory Rate 18 16 16 Blood Pressure 139/98 H Pulse Oximetry 100 98 Intake & Output 11/26/17 11/27/17 11/27/17 18:59 06:59 18:59 Intake Total 1137 / 1137 468 / 468 Output Total 0 / 0 175 / 175 Balance 1137 / 1137 293 / 293 Weight 67.5 kg Intake: IV 554 / 554 133 / 133 Versed Inj 50 mg In 50 ml @ 2 100 / 100 100 / 100 MG/HR 2 mls/hr IV.CONT TITRATE PRN Rx#:[id number] Primacor Inj 20 MG In NS Inj 80 67 / 67 33 / 33 ML @ 0.5 MCG/KG/MIN 10.5 mls/ hr IV.CONT .Q9H32M [facility] Rx#: [id number] D10W Inj 1,000 ML @ 30 mls/hr 387 / 387 IV.SIG .Q24H [facility] Rx#:[id number] Oral 0 / 0 Tube Feeding 383 / 383 335 / 335 Water Bolus Amount 200 / 200 Output: Urine Amount (Catheter) 0 / 0 175 / 175 Condom 175 / 175 Straight 0 / 0 Other: # Voids 3 # Incontinent Voids 3 Date of Last Bowel Movement 11/26/17 # Bowel Movements 1 0 Physical Exam: CONSTITUTIONAL/GENERAL: This is an adequately nourished patient, intubated, sedated, in no apparent distress. TUBES/LINES/DRAINS: right subclavian central line, ETT, Condom catheter,OGT, . SKIN: No jaundice, rashes, or lesions. No wounds seen anteriorly. Skin temperature appropriate. Not diaphoretic. HEAD: Atraumatic. Normocephalic. EYES: Pupils equal and round and sluggishly reactive. No scleral icterus. No injection or drainage. Fundi not examined. ENT: Nose without bleeding or purulent drainage. Orally intubated. NECK: Trachea midline. Supple, nontender. CARDIOVASCULAR: S1, S2, S3. Irregular rhythm, controlled rate without gallops, or rubs. Soft 1/6 systolic ejection murmur. No JVD. Pedal pulses+ve by doppler RESPIRATORY/CHEST: Symmetric, unlabored respirations. Clear but diminished in the bases. No wheezes, rales, or rhonchi. GASTROINTESTINAL: Abdomen soft, nondistended. Intermittent BS. OGT with TF infusing at 30ml.hr GENITOURINARY: Without palpable bladder distension. Smith catheter in place. MUSCULOSKELETAL: Extremities without clubbing or cyanosis, 2+ to BUE, 3+ dependent edema to BLE. No mottling or clubbing. NEUROLOGICAL: Intubated and Sedated.Midazolam currently infusing at 10mg/hr PSYCHIATRIC: Unable to assess. Currently sedated and calm. . Diagnostic Tests Laboratory: Laboratory Results - last 72 hr 11/22/17 11/24/17 11/24/17 16:45 17:32 19:40 WBC RBC Hgb Hct MCV MCH MCHC RDW Plt Count MPV Prelim Diff (Auto) Neut % (Auto) Lymph % (Auto) Coffee % (Auto) Eos % (Auto) Baso % (Auto) Neut # (Auto) Lymph # (Auto) Coffee # (Auto) Eos # (Auto) Baso # (Auto) WBC Differential Diff Scan Differential Comment Platelet Estimate Platelet Morphology RBC Morphology Sodium Potassium Chloride Carbon Dioxide Anion Gap BUN Creatinine Estimated GFR POC Glucose 77 78 Random Glucose Calcium Phosphorus Total Bilirubin AST ALT Alkaline Phosphatase Total Protein Albumin HIV-1 Antibody Positive HIV-2 Antibody Indeterminate HIV (1&2) Ag & Ab Refer Reactive 11/25/17 11/25/17 11/25/17 04:40 04:40 11:35 WBC 3.8 L RBC 5.11 Hgb 14.6 Hct 45.3 MCV 88.6 MCH 28.7 MCHC 32.3 RDW 16.0 Plt Count 95 L MPV 8.5 Prelim Diff (Auto) Slide review pending Neut % (Auto) 74.3 H Lymph % (Auto) 11.0 Coffee % (Auto) 9.2 H Eos % (Auto) 4.7 H Baso % (Auto) 0.8 Neut # (Auto) 2.8 Lymph # (Auto) 0.4 L Coffee # (Auto) 0.3 Eos # (Auto) 0.2 Baso # (Auto) 0.0 WBC Differential . Diff Scan Auto diff confirmed Differential Comment . Platelet Estimate Low L Platelet Morphology Normal RBC Morphology Normal Sodium 142 Potassium 3.2 L Chloride 107 Carbon Dioxide 28.0 Anion Gap 7 BUN 32 H Creatinine 1.40 H Estimated GFR 63 L POC Glucose 135 H Random Glucose 95 Calcium 7.8 L Phosphorus Total Bilirubin 0.9 AST 68 H ALT 42 Alkaline Phosphatase 64 Total Protein 6.3 L Albumin 1.7 L HIV-1 Antibody HIV-2 Antibody HIV (1&2) Ag & Ab Refer 11/25/17 11/25/17 11/26/17 17:57 19:32 03:05 WBC RBC Hgb Hct MCV MCH MCHC RDW Plt Count MPV Prelim Diff (Auto) Neut % (Auto) Lymph % (Auto) Coffee % (Auto) Eos % (Auto) Baso % (Auto) Neut # (Auto) Lymph # (Auto) Coffee # (Auto) Eos # (Auto) Baso # (Auto) WBC Differential Diff Scan Differential Comment Platelet Estimate Platelet Morphology RBC Morphology Sodium Potassium Chloride Carbon Dioxide Anion Gap BUN Creatinine Estimated GFR POC Glucose 90 90 93 Random Glucose Calcium Phosphorus Total Bilirubin AST ALT Alkaline Phosphatase Total Protein Albumin HIV-1 Antibody HIV-2 Antibody HIV (1&2) Ag & Ab Refer 11/26/17 11/26/17 11/27/17 03:30 09:51 03:30 WBC 3.6 L 3.6 L RBC 5.20 4.76 Hgb 14.9 13.8 Hct 46.1 42.6 MCV 88.8 89.6 MCH 28.6 29.0 MCHC 32.2 32.4 RDW 16.0 15.3 Plt Count 114 L 104 L MPV 8.9 9.2 Prelim Diff (Auto) Neut % (Auto) 70.3 H 68.1 Lymph % (Auto) 13.7 15.8 Coffee % (Auto) 8.1 H 8.1 H Eos % (Auto) 6.6 H 7.1 H Baso % (Auto) 1.3 0.9 Neut # (Auto) 2.5 2.4 Lymph # (Auto) 0.5 L 0.6 L Coffee # (Auto) 0.3 0.3 Eos # (Auto) 0.2 0.3 Baso # (Auto) 0.0 0.0 WBC Differential . . Diff Scan Differential Comment Auto diff final Auto diff final Platelet Estimate Platelet Morphology RBC Morphology Sodium Potassium Chloride Carbon Dioxide Anion Gap BUN Creatinine Estimated GFR POC Glucose 101 Random Glucose Calcium Phosphorus Total Bilirubin AST ALT Alkaline Phosphatase Total Protein Albumin HIV-1 Antibody HIV-2 Antibody HIV (1&2) Ag & Ab Refer 11/27/17 11/27/17 03:30 09:52 WBC RBC Hgb Hct MCV MCH MCHC RDW Plt Count MPV Prelim Diff (Auto) Neut % (Auto) Lymph % (Auto) Coffee % (Auto) Eos % (Auto) Baso % (Auto) Neut # (Auto) Lymph # (Auto) Coffee # (Auto) Eos # (Auto) Baso # (Auto) WBC Differential Diff Scan Differential Comment Platelet Estimate Platelet Morphology RBC Morphology Sodium 142 Potassium 3.4 L Chloride 106 Carbon Dioxide 27.0 Anion Gap 9 BUN 28 H Creatinine 1.15 Estimated GFR 79 L POC Glucose 89 Random Glucose 83 Calcium 7.9 L Phosphorus 2.1 L Total Bilirubin AST ALT Alkaline Phosphatase Total Protein Albumin 1.7 L HIV-1 Antibody HIV-2 Antibody HIV (1&2) Ag & Ab Refer Result Diagrams: 11/29/17 03:50 11/29/17 03:50 Microbiology: Microbiology 11/19/17 11:46 Aerobic Blood Culture - Final Blood - Peripheral No growth in 5 days Anaerobic Blood Culture - Final No growth in 5 days 11/19/17 08:20 Aerobic Blood Culture - Final Blood - Peripheral No growth in 5 days Anaerobic Blood Culture - Final No growth in 5 days Imaging: Abdomen/Pelvis CT 11/19/17 03:55 CONCLUSION: 1. Limited, suboptimal examination performed without intravenous or oral contrast. The study is degraded by motion artifact as well. 2. Abnormal bowel gas pattern with multiple small air-fluid levels. The bowel is suboptimally visualized and evaluated secondary to the lack of the intravenous and oral contrast as well as diffuse ascites. This may represent a gastroenteritis and/or ileus. Obstruction is less likely. 3. Diffuse ascites throughout the abdomen and pelvis. 4. Moderate size right effusion which is increased from the prior study. There is a new small left effusion. 5. Moderate cardiomegaly. 6. No definite gallstones identified. Head CT 11/19/17 03:55 CONCLUSION: 1. No acute hemorrhage or mass effect. 2. Mild motion and streak artifact. . Chest X-Ray 11/27/17 08:49 CONCLUSION: 1. Mild to moderate pulmonary vascular congestion. 2. Cardiomegaly. 3. Tiny bilateral pleural effusions. 4. Multiple tubes and lines are stable. Procedures: 11/19/2017: Right radial arterial line placement 11/19/2017: Endotracheal intubation 11/19/2017: Right subclavian triple-lumen catheter placement 11/19/2017 right IJ dialysis catheter placement Dc`d 11/26/17 . 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 He was never and has no children. He was previously in the [employer]. 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 Legal: No living will or healthcare surrogate completed. Ethical issues impacting care: None noted. . Important Contacts: Mother: Angelina Medina healthcare proxy Currently living with daughter , Kaylie Gama. Sister: Bryan Sharp Sister: Kamille Verdugo Brother: Segundo Verdugo Brother: Carter Chavez Sister: Kaylie Gama - , C [phone] . Prognosis: His prognosis is poor. He has end-stage heart disease now with an ejection fraction estimated to be less than 10% by termination clerk echo. He has suffered a decline in heart function since June 2017 when echocardiogram showed a 50-55% ejection fraction at the time of mitral valve repair. Patient continued to abuse cocaine and possibly other substances and when seen in [place] September 2017 for chest pain was found to have non-ischemic cardiomyopathy with a normal coronary artery circulation and ejection fraction of 20-25%. Echocardiogram at this admission shows cardiogenic shock with an EF less than 10%. He is now requiring inotropic support with milrinone and now has acute kidney injury requiring dialysis for both hyperkalemia and fluid overload. At this time he remains on life support, intubated, but is at elevated risk for continued complications and decline. He would be hospice appropriate if goals were consistent. . Code Status: No Code DNR (Do not reintubate) Plan: PLAN: Legal decision maker: At this time the patient is not capacitated for decision making and it is not certain that he will ever regain capacity. He was never and has no children. His mother would be his proxy decision maker per [place] statutes. She had previously been reported to me as demented and unable to make these decisions, however, her daughter, Kaylie, who is her caregiver disputes that and states that her mother is perfectly capable of making these decisions and wishes to be her son's decision-maker. In conversation with Ms. Medina, herself, she appeared appropriate and capable of decision-making. Goals: Aggressive short of no code. Meeting with patient`s sister Kaylie and patient`s mother on [facility]. Family would like to give patient a week and see if he can be medically extubated. They will most likely lean towards compassionate withdrawal from life support. Patient`s mother struggling with making that decision. Hospice was introduced and family receptive to the services if they proceed with compassionate withdrawal from life support. CODE STATUS: DO NOT RESUSCITATE SYMPTOMS: * Altered mental status: Presented with altered mental status, positive for cocaine, hypoglycemic, hyperkalemic, in fulminant heart failure, minimally able to make his needs known. Shortly thereafter he required intubation and sedation. He becomes agitated when sedation is lightened but does not follow commands. Possibly related to end stage heart failure. Questionable HIV diagnosis per his mother. Bedside critical care echo showed severe biventricular dysfunction with EF less than 10%, aortic valve opening only minimally due to low flow. HIV positive. * Edema: Edema is improving on hemodialysis, which is on hold after today's ultrafiltration as patient's renal status is stabilizing and is having some urine output. Given his severe heart failure, borderline hypotension and impaired renal function, this is likely to be an ongoing problem. Last hemodialysis on 11/23 which was mainly for fluid overload and pulmonary edema. Patient edematous today 3+. Started on Furosemide today. Palliative care will continue to follow the patient during hospital course as condition evolves, to assist patient/decision-maker with understanding of their medical conditions, weighing benefits/burdens of treatment options, for clarification of goals of treatment. Additionally will assist with any symptoms of palliative concern. .
[2017-11-27 12:47] LABS: ABG Base Excess 1.2 mmol/L (-2-2); ABG PCO2 36 mmHg (38-42); ABG PO2 108 mmHG (61-120)
[2017-11-27] MEDS: Morphine Inj 4 MG/ML Vial IV.PUSH PRN ×2 (13:40→19:53)
[2017-11-27] MEDS: Heparin - SQ 10,000 UNITS/ML Vial SQ SCH ×3 (13:41→21:47)
[2017-11-27] MEDS: Dextrose 10% in Water Inj 1,000 ML IV.SIG SCH (14:51)
[2017-11-27 15:20] LABS: Bacteria,Urine Many /hpf; Bilirubin,Urine Negative (Negative); Clarity,Urine Hazy (Clear); Color,Urine Yellow (Yellw/Straw); Glucose,Urine (UA) Negative (Negative); Leukocyte Esterase,Urine Moderate (Negative); Nitrite,Urine Negative (Negative); Specific Gravity,Urine 1.006 (1.002-1.035)
[2017-11-27] MEDS ORDERED: Dextrose 50% in Water 50 ML Vial IV.PUSH PRN (16:05)
[2017-11-27] MEDS: Insulin NovoLIN Regular Correctional Sugar Inj SQ SCH ×2 (17:28→23:32)
[2017-11-28 03:49] LABS: Eos # (Auto) 0.2 th/mm3 (0.0-0.4); Eos % (Auto) 4.2 % (0.0-4.0); Hematocrit 43.1 % (39.0-51.0); Hemoglobin 13.8 gm/dL (13.0-17.0); Lymph # (Auto) 0.4 th/mm3 (1.0-4.8); Lymph % (Auto) 9.8 % (9.0-44.0); Mean Corpuscular Hemoglobin 28.9 pg (27.0-34.0); Mean Corpuscular Volume 90.2 fL (80.0-100.0); Mean Platelet Volume 8.7 fL (7.0-11.0); Mono # (Auto) 0.3 th/mm3 (0.0-0.9); Mono % (Auto) 6.4 % (0.0-8.0); Neut # (Auto) 3.5 th/mm3 (1.8-7.7); Neut % (Auto) 78.6 % (16.0-70.0); Platelet Count 127 th/mm3 (150-450); Red Blood Count 4.79 mil/mm3 (4.50-5.90); Red Cell Distribution Width 15.5 % (11.6-17.2); White Blood Count 4.5 th/mm3 (4.0-11.0)
[2017-11-28 03:59] LABS: Calcium 7.7 mg/dL (8.5-10.1); Carbon Dioxide 28.1 meq/L (21.0-32.0); Magnesium 1.6 mg/dL (1.5-2.5); Potassium 3.5 meq/L (3.5-5.1)
[2017-11-28 04:00] LABS: Phosphorus 2.5 mg/dL (2.5-4.9)
[2017-11-28] MEDS: Morphine Inj 4 MG/ML Vial IV.PUSH PRN (04:17)
[2017-11-28] MEDS: Heparin - SQ 10,000 UNITS/ML Vial SQ SCH ×4 (05:00→22:20)
[2017-11-28] MEDS: Insulin NovoLIN Regular Correctional Sugar Inj SQ SCH ×3 (05:02→17:08)
--- NOTE | 2017-11-28 07:56 | P.PNCC ---
Subjective Subjective Remarks/Hospital Course: 11/19: This is a 57yM with history of cardiomyopathy and an EF 20% who recently underwent mitral valve repair for severe MR. At that time, he had a preserved LVEF. However, he continued to use illicit cocaine, and on subsequent hospital admissions, his EF had fallen to 20%. He represents today with altered mental status, endorsing cocaine use. On further evaluation, he has a potassium of 7, Cr 2.4, AST/ALT 200/72, CK 1302, BNP 4307, co2 14. On my evaluation he is obtunded and agonally breathing, intermittently tachypneic. I performed bedside critical care echo which demonstrated a severe biventricular dysfunction and an EF < 10%. there was spontaneous echo contrast in the LV and the aortic valve appeared to open only minimally due to low-flow. Patient is grossly anasarcic with 3+ edema bilaterally up to the abdomen. he has JVD above the level of the mandible. I emergently intubated the patient (see separate procedure note for details). I emergently placed arterial, central lines, and dialysis catheter. potassium did not improve with medical therapy. we consulted nephrology for emergent HD. I also placed the patient on epinephrine drip for cardiogenic shock. due to the patient's mental status and clinical status, no additional information is available from him. ROS unobtainable. 11/20: Remains sedated, orally intubated on mechanical ventilation. Dialyzed this morning. Remains on pressors. 11/21: Remains sedated, orally intubated on mechanical ventilation. Hypothermic this morning. 11/22: Remains sedated, orally intubated on mechanical ventilation. Dialysis scheduled today. 11/23: Remains sedated, orally intubated on mechanical ventilation. On milrinone. 11/24, 11/25: Remains sedated, orally intubated on mechanical ventilation. Tolerating tube feeds. 11/26: Sedated, orally intubated on mechanical ventilation. Tolerating tube feeds. 11/27 No events overnight. Sedated with Versed and intubated. On Milrinone drip. 11/28 Patient remains intubated and sedated with Versed. On Milrinone drip. T: 99.7 yesterday. Had 7 runs of asymptomatic Vtach overnight. Objective Vital Signs / I&O: Vital Signs 11/27/17 08:00 11/27/17 08:30 11/27/17 09:00 Temperature 98.4 F Pulse Rate 114 H 102 H 123 H Respiratory Rate 16 16 18 Blood Pressure 100/71 102/72 Pulse Oximetry 98 100 100 11/27/17 09:01 11/27/17 09:30 11/27/17 10:00 Temperature Pulse Rate 121 H 104 H 104 H Respiratory Rate 18 17 19 Blood Pressure 139/98 H 108/71 112/78 Pulse Oximetry 100 100 100 11/27/17 10:30 11/27/17 11:00 11/27/17 11:01 Temperature Pulse Rate 112 H 121 H 127 H Respiratory Rate 19 27 H 22 Blood Pressure 118/84 137/83 Pulse Oximetry 100 100 93 L 11/27/17 11:13 11/27/17 11:14 11/27/17 11:30 Temperature Pulse Rate 111 H 109 H Respiratory Rate 16 16 16 Blood Pressure 98/68 L Pulse Oximetry 98 97 11/27/17 12:00 11/27/17 12:30 11/27/17 13:00 Temperature 98.8 F Pulse Rate 109 H 106 H 115 H Respiratory Rate 20 25 H 17 Blood Pressure 115/81 116/76 116/81 Pulse Oximetry 100 99 100 11/27/17 13:27 11/27/17 13:33 11/27/17 14:00 Temperature Pulse Rate 124 H 125 H Respiratory Rate 16 34 H 17 Blood Pressure 113/93 H 132/87 Pulse Oximetry 100 100 99 11/27/17 14:30 11/27/17 15:00 11/27/17 15:03 Temperature Pulse Rate 107 H 128 H 119 H Respiratory Rate 7 L 20 21 Blood Pressure 95/63 L 126/81 Pulse Oximetry 98 100 100 11/27/17 15:07 11/27/17 15:30 11/27/17 16:00 Temperature 99.7 F H Pulse Rate 141 H 141 H Respiratory Rate 17 18 17 Blood Pressure 146/99 H 137/93 H Pulse Oximetry 100 100 100 11/27/17 16:47 11/27/17 17:00 11/27/17 19:37 Temperature Pulse Rate 117 H 119 H 100 H Respiratory Rate 17 18 16 Blood Pressure 118/80 117/80 Pulse Oximetry 100 100 98 11/27/17 20:00 11/27/17 23:19 11/28/17 00:00 Temperature 99 F 98.8 F Pulse Rate 116 H 107 H 103 H Respiratory Rate 16 16 16 Blood Pressure 104/72 90/59 L Pulse Oximetry 97 100 98 11/28/17 03:24 11/28/17 04:00 11/28/17 07:18 Temperature 98.8 F Pulse Rate 108 H 103 H Respiratory Rate 16 16 18 Blood Pressure 90/59 L Pulse Oximetry 100 98 100 Intake & Output 11/27/17 11/28/17 11/28/17 18:59 06:59 18:59 Intake Total 1554 / 1554 590 / 590 Output Total 1550 / 1550 1000 / 1000 Balance 4 / 4 -410 / -410 Weight 65 kg Intake: IV 860 / 860 50 / 50 Versed Inj 50 mg In 50 ml @ 2 100 / 100 50 / 50 MG/HR 2 mls/hr IV.CONT TITRATE PRN Rx#:[id number] D10W Inj 1,000 ML @ 30 mls/hr 500 / 500 IV.SIG .Q24H RUDDY Rx#:[id number] Potassium Phosphate Inj 30 MMOL 260 / 260 In NS Inj 250 ML @ 42 mls/hr IV.SIG UNSCH PRN Rx#:[id number] Tube Feeding 694 / 694 540 / 540 Output: Urine 1000 / 1000 Urine Amount (Catheter) 1550 / 1550 Condom 1200 / 1200 Straight 350 / 350 Other: Date of Last Bowel Movement 11/27/17 # Bowel Movements 0 Result Diagrams: 11/28/17 03:30 11/28/17 03:30 Other Results: Laboratory Results - last 12 hr 11/27/17 11/27/17 11/28/17 18:00 23:27 03:30 WBC 4.5 RBC 4.79 Hgb 13.8 Hct 43.1 MCV 90.2 MCH 28.9 MCHC 32.0 RDW 15.5 Plt Count 127 L MPV 8.7 Neut % (Auto) 78.6 H Lymph % (Auto) 9.8 Citrus % (Auto) 6.4 Eos % (Auto) 4.2 H Baso % (Auto) 1.0 Neut # (Auto) 3.5 Lymph # (Auto) 0.4 L [place] # (Auto) 0.3 Eos # (Auto) 0.2 Baso # (Auto) 0.0 WBC Differential . Differential Comment Auto diff final Sodium Potassium 3.7 Chloride Carbon Dioxide Anion Gap BUN Creatinine Estimated GFR POC Glucose 109 Random Glucose Calcium Phosphorus Magnesium 11/28/17 11/28/17 03:30 05:00 WBC RBC Hgb Hct MCV MCH MCHC RDW Plt Count MPV Neut % (Auto) Lymph % (Auto) [place]rus % (Auto) Eos % (Auto) Baso % (Auto) Neut # (Auto) Lymph # (Auto) [place] # (Auto) Eos # (Auto) Baso # (Auto) WBC Differential Differential Comment Sodium 139 Potassium 3.5 Chloride 105 Carbon Dioxide 28.1 Anion Gap 6 BUN 28 H Creatinine 1.22 Estimated GFR 74 L POC Glucose 101 Random Glucose 106 Calcium 7.7 L Phosphorus 2.5 Magnesium 1.6 Imaging: Abdomen/Pelvis CT 11/19/17 03:55 CONCLUSION: 1. Limited, suboptimal examination performed without intravenous or oral contrast. The study is degraded by motion artifact as well. 2. Abnormal bowel gas pattern with multiple small air-fluid levels. The bowel is suboptimally visualized and evaluated secondary to the lack of the intravenous and oral contrast as well as diffuse ascites. This may represent a gastroenteritis and/or ileus. Obstruction is less likely. 3. Diffuse ascites throughout the abdomen and pelvis. 4. Moderate size right effusion which is increased from the prior study. There is a new small left effusion. 5. Moderate cardiomegaly. 6. No definite gallstones identified. Head CT 11/19/17 03:55 CONCLUSION: 1. No acute hemorrhage or mass effect. 2. Mild motion and streak artifact. . Chest X-Ray 11/27/17 08:49 CONCLUSION: 1. Mild to moderate pulmonary vascular congestion. 2. Cardiomegaly. 3. Tiny bilateral pleural effusions. 4. Multiple tubes and lines are stable. Objective Remarks: GENERAL: Patient is 57 yo intubated and sedated SKIN: Warm and dry. HEAD: Normocephalic. EYES: No scleral icterus. No injection or drainage. NECK: Supple, trachea midline. No JVD or lymphadenopathy. CARDIOVASCULAR: Regular rate and rhythm without murmurs, gallops, or rubs. RESPIRATORY: Breath sounds equal bilaterally. No accessory muscle use. GASTROINTESTINAL: Abdomen soft, non-tender, nondistended. MUSCULOSKELETAL: No cyanosis, or edema. Neuro: Sedated Assessment and Plan - Assessment and Plan Plan: Plan by systems: Neurologic: Acute toxic encephalopathy Acute cocaine intoxication Acute metabolic encephalopathy secondary to shock On Versed drip for sedation. Daily sedation vacation. Monitor neuro status. Respiratory: Acute hypoxic and hypercarbic respiratory failure Acute severe pulmonary edema Probable Crack Lung Continue with vent support keep sats >92% On PRVC RR 16, TV550, IT:1.1, PEEP:5, FIO2: 30% Bronchodilators. SBT daily as maria elena. Asymmetric pulmonary consolidation pattern is consistent with chronic crack cocaine use Cardiovascular: s/p Cardiogenic shock Acute severe systolic congestive heart failure exacerbation Acute type II non-ST elevation myocardial infarction secondary to demand ischemia known prior EF 20% (09/2017), Follow up on Echo results likely secondary to chronic cocaine use superimposed on cardiomyopathy. Monitor HR and BP keep MAP>65mmHg. on Coreg 3.125mg BID On Milrinone drip. Lactic acid resolved 1.1 on 11/20 Renal: Acute kidney injury- resolved Monitor renal function, I/O's, electrolytes replacement per protocol. Vascath d/c 11/26. Continue Lasix 40mg IV daily Renal is following. FEN/GI: Severe acute protein calorie malnutrition Change tube feeds- Glucerna 1.5 with goal rate 45ml/hr Heme/ID: Daily CBC Hep C reactive, HIV reactive on screening test Place on Rocephin daily for UTI. Monitor for signs of infections ( Fever, WBC). Follow up on sputum and urine cxs ID: Endocrine: Acute hypoglycemia, severe D10W at 30 miles an hour SSI with accuchecks Prophylaxis: GI Prophylaxis Pepcid IV DVT Prophylaxis -- SCDs Subcu heparin Lines: 11/19 right brachial arterial line 11/19 right subclavian 7 Kazakh triple-lumen catheter 11/19 right IJ 14 Kazakh 20 cm dialysis catheter d/c 11/26 11/19 [place] Prognosis appears poor. Palliative care following to assist with deciding goals of therapy. Family is leaning toward withdrawal life support if he can not be medically extubated. CCT 30 mins
[2017-11-28] MEDS: Famotidine PF Inj 20 MG/2 ML Vial IV.PUSH SCH (08:07)
[2017-11-28] MEDS: Senna/Docusate Sodium 8.6/50 MG Tablet PO SCH ×2 (08:07→21:12)
[2017-11-28] MEDS: Dextrose 10% in Water Inj 1,000 ML IV.SIG SCH (09:05)
[2017-11-28] MEDS ORDERED: Metoprolol Inj 5 MG/5 ML Vial IV.PUSH ONE ×2 (09:30→17:00)
--- NOTE | 2017-11-28 12:26 | ECHRPT ---
Indication: CARDIOMYOPATHY CONCLUSIONS Moderately dilated left ventricle. Wall thickness is normal. The left ventricular systolic function is severely reduced with an estimated ejection fraction less than 20%. There are findings consistent with dilated cardiomyopathy. The right ventricle is moderately dilated. The right ventricular systoilc function is moderately decreased. Moderate to severe mitral valve regurgitation. There is mild tricuspid valve regurgitation. The estimated pulmonary arterial pressure is 53.9 mmHg. A right sided pleural effusion is present. spontaneous echo contrast seen throughout the left ventricle BP: / HR: Rhythm: Sinus MEASUREMENTS (Male / Female) Normal Values Technical Quality:Fair 2D ECHO LV Diastolic Diameter PLAX 6.5 cm 4.2 - 5.9 / 3.9 - 5.3 cm LV Systolic Diameter PLAX 6.2 cm IVS Diastolic Thickness 0.8 cm 0.6 - 1.0 / 0.6 - 0.9 cm LVPW Diastolic Thickness 0.8 cm 0.6 - 1.0 / 0.6 - 0.9 cm LV Relative Wall Thickness 0.3 RV Internal Dim ED PLAX 3.0 cm LVOT Diameter 2.3 cm Aortic Root Diameter 3.0 cm LA Systolic Diameter LX 2.6 cm 3.0 - 4.0 / 2.7 - 3.8 cm M-MODE AV Cusp Separation MM 2.2 cm DOPPLER LVOT Peak Velocity 51.7 cm/s LVOT Peak Gradient 1.1 mmHg LVOT Velocity Time Integral 5.1 cm Mitral E Point Velocity 147.0 cm/s LV E' Lateral Velocity 4.1 cm/s Mitral E to LV E' Lateral Ratio 35.9 LV E' Septal Velocity 6.6 cm/s Mitral E to LV E' Septal Ratio 22.2 TR Peak Velocity 312.0 cm/s TR Peak Gradient 38.9 mmHg Right Atrial Pressure 15.0 mmHg Pulmonary Artery Systolic Pressu 53.9 mmHg Right Ventricular Systolic Press 53.9 mmHg PV Peak Velocity 32.3 cm/s PV Peak Gradient 0.4 mmHg FINDINGS LEFT VENTRICLE Moderately dilated left ventricle. Wall thickness is normal. The left ventricular systolic function is severely reduced with an estimated ejection fraction less than 20%. There are findings consistent with dilated cardiomyopathy. RIGHT VENTRICLE The right ventricle is moderately dilated. The right ventricular systoilc function is moderately decreased. LEFT ATRIUM The left atrial size is normal. RIGHT ATRIUM The right atrial size is normal. ATRIAL SEPTUM No atrial level shunt is demonstrated by color flow Doppler interrogation. AORTA The aortic root and proximal ascending aorta are normal in size on limited imaging. MITRAL VALVE Mild mitral valve regurgitation. AORTIC VALVE Trileaflet aortic valve. No aortic valve stenosis or regurgitation. TRICUSPID VALVE There is mild tricuspid valve regurgitation. The estimated pulmonary arterial pressure is 53.9 mmHg. PULMONARY VALVE No pulmonary valve regurgitation or stenosis. VESSELS The inferior vena cava is normal in size. PERICARDIUM No pericardial effusion. A right sided pleural effusion is present. Quinton Kelly MD, FACC, [facility] [place] (Electronically Signed) Final Date:28 November 2017 12:24
[2017-11-28] MEDS: Milrinone Inj 20 MG in Sodium Chlor 0.9% Inj 80 ML IV.CONT SCH (15:22)
[2017-11-28] MEDS: Midazolam 50 MG/50 ML Inj 50 MG/50 ML BAG IV.CONT PRN (17:24)
[2017-11-28] MEDS: Acetaminophen 325 MG Tablet PO PRN (23:03)
[2017-11-29] MEDS: Dextrose 10% in Water Inj 1,000 ML IV.SIG SCH ×2 (01:05→18:25)
[2017-11-29 04:25] LABS: Baso % (Auto) 0.7 % (0.0-2.0); Eos # (Auto) 0.1 th/mm3 (0.0-0.4); Eos % (Auto) 3.1 % (0.0-4.0); Hematocrit 37.5 % (39.0-51.0); Hemoglobin 12.6 gm/dL (13.0-17.0); Lymph # (Auto) 0.4 th/mm3 (1.0-4.8); Lymph % (Auto) 9.5 % (9.0-44.0); Mean Corpuscular HGB Conc 33.7 % (32.0-36.0); Mean Platelet Volume 9.2 fL (7.0-11.0); Mono # (Auto) 0.3 th/mm3 (0.0-0.9); Mono % (Auto) 5.5 % (0.0-8.0); Neut # (Auto) 3.8 th/mm3 (1.8-7.7); Neut % (Auto) 81.2 % (16.0-70.0); Platelet Count 160 th/mm3 (150-450); Red Blood Count 4.21 mil/mm3 (4.50-5.90); Red Cell Distribution Width 15.1 % (11.6-17.2); White Blood Count 4.7 th/mm3 (4.0-11.0)
[2017-11-29] MEDS: Insulin NovoLIN Regular Correctional Sugar Inj SQ SCH ×4 (04:26→17:21)
[2017-11-29 04:52] LABS: Carbon Dioxide 31.3 meq/L (21.0-32.0); Magnesium 1.9 mg/dL (1.5-2.5)
[2017-11-29 04:53] LABS: Potassium 4.3 meq/L (3.5-5.1)
[2017-11-29] MEDS: Heparin - SQ 10,000 UNITS/ML Vial SQ SCH ×3 (05:20→21:58)
--- NOTE | 2017-11-29 07:50 | P.PNCC ---
Subjective Subjective Remarks/Hospital Course: 11/19: This is a 57yM with history of cardiomyopathy and an EF 20% who recently underwent mitral valve repair for severe MR. At that time, he had a preserved LVEF. However, he continued to use illicit cocaine, and on subsequent hospital admissions, his EF had fallen to 20%. He represents today with altered mental status, endorsing cocaine use. On further evaluation, he has a potassium of 7, Cr 2.4, AST/ALT 200/72, CK 1302, BNP 4307, co2 14. On my evaluation he is obtunded and agonally breathing, intermittently tachypneic. I performed bedside critical care echo which demonstrated a severe biventricular dysfunction and an EF < 10%. there was spontaneous echo contrast in the LV and the aortic valve appeared to open only minimally due to low-flow. Patient is grossly anasarcic with 3+ edema bilaterally up to the abdomen. he has JVD above the level of the mandible. I emergently intubated the patient (see separate procedure note for details). I emergently placed arterial, central lines, and dialysis catheter. potassium did not improve with medical therapy. we consulted nephrology for emergent HD. I also placed the patient on epinephrine drip for cardiogenic shock. due to the patient's mental status and clinical status, no additional information is available from him. ROS unobtainable. 11/20: Remains sedated, orally intubated on mechanical ventilation. Dialyzed this morning. Remains on pressors. 11/21: Remains sedated, orally intubated on mechanical ventilation. Hypothermic this morning. 11/22: Remains sedated, orally intubated on mechanical ventilation. Dialysis scheduled today. 11/23: Remains sedated, orally intubated on mechanical ventilation. On milrinone. 11/24, 11/25: Remains sedated, orally intubated on mechanical ventilation. Tolerating tube feeds. 11/26: Sedated, orally intubated on mechanical ventilation. Tolerating tube feeds. 11/27 No events overnight. Sedated with Versed and intubated. On Milrinone drip. 11/28 Patient remains intubated and sedated with Versed. On Milrinone drip. T: 99.7 yesterday. Had 7 runs of asymptomatic Vtach overnight. 11/29 Patient is sedated with Versed and intubated. Remains on Milrinone. T: 100.4 last night. Had 1 run (6 beats) asymptomatic Vtach overnight. Gets tachycardic and tachypneic with CPAP trials. Objective Vital Signs / I&O: Vital Signs 11/28/17 08:00 11/28/17 08:30 11/28/17 09:00 Temperature 98.7 F Pulse Rate 111 H 112 H 114 H Respiratory Rate 16 16 16 Blood Pressure 114/83 116/83 111/80 Pulse Oximetry 100 99 99 11/28/17 09:30 11/28/17 10:00 11/28/17 10:30 Temperature Pulse Rate 120 H 93 H 98 H Respiratory Rate 16 16 16 Blood Pressure 116/86 88/61 L 93/70 L Pulse Oximetry 99 96 98 11/28/17 11:00 11/28/17 11:01 11/28/17 11:30 Temperature Pulse Rate 106 H 104 H 115 H Respiratory Rate 16 16 16 Blood Pressure 105/77 112/84 Pulse Oximetry 98 98 98 11/28/17 12:00 11/28/17 12:06 11/28/17 12:31 Temperature 98.7 F Pulse Rate 108 H 108 H 128 H Respiratory Rate 16 16 15 Blood Pressure 104/76 141/91 H Pulse Oximetry 97 97 100 11/28/17 13:00 11/28/17 13:30 11/28/17 14:00 Temperature Pulse Rate 131 H 131 H 112 H Respiratory Rate 16 18 16 Blood Pressure 135/94 H 134/92 H 107/69 Pulse Oximetry 100 99 98 11/28/17 14:30 11/28/17 15:00 11/28/17 15:02 Temperature Pulse Rate 105 H 122 H 120 H Respiratory Rate 16 16 16 Blood Pressure 96/64 L 111/81 Pulse Oximetry 99 100 99 11/28/17 15:30 11/28/17 16:00 11/28/17 16:06 Temperature 98.7 F Pulse Rate 109 H 123 H Respiratory Rate 16 16 16 Blood Pressure 109/73 124/90 Pulse Oximetry 100 100 100 11/28/17 16:30 11/28/17 17:00 11/28/17 17:01 Temperature Pulse Rate 134 H 113 H 115 H Respiratory Rate 16 18 16 Blood Pressure 136/95 H 127/77 Pulse Oximetry 100 98 99 11/28/17 17:30 11/28/17 18:00 11/28/17 18:30 Temperature Pulse Rate 126 H 113 H 114 H Respiratory Rate 29 H 16 19 Blood Pressure 137/89 97/69 L 105/71 Pulse Oximetry 98 97 99 11/28/17 19:00 11/28/17 19:30 11/28/17 20:00 Temperature 100.4 F H Pulse Rate 113 H 117 H 128 H Respiratory Rate 18 16 26 H Blood Pressure 106/70 113/79 139/100 H Pulse Oximetry 100 99 100 11/28/17 20:14 11/28/17 20:30 11/28/17 21:00 Temperature Pulse Rate 123 H 118 H 124 H Respiratory Rate 16 16 24 Blood Pressure 114/78 115/73 Pulse Oximetry 99 100 100 11/28/17 21:30 11/28/17 22:00 11/28/17 22:30 Temperature Pulse Rate 126 H 121 H 120 H Respiratory Rate 29 H 18 22 Blood Pressure 110/79 112/85 112/78 Pulse Oximetry 100 100 100 11/28/17 23:00 11/28/17 23:30 11/28/17 23:40 Temperature Pulse Rate 120 H 113 H Respiratory Rate 22 25 H 18 Blood Pressure 106/74 107/70 Pulse Oximetry 100 98 11/29/17 00:00 11/29/17 00:30 11/29/17 00:50 Temperature Pulse Rate 107 H 104 H 106 H Respiratory Rate 16 16 16 Blood Pressure 108/70 109/70 Pulse Oximetry 98 99 100 11/29/17 01:00 11/29/17 01:01 11/29/17 01:31 Temperature 99.1 F Pulse Rate 106 H 118 H 117 H Respiratory Rate 18 15 17 Blood Pressure 104/87 126/84 Pulse Oximetry 100 100 99 11/29/17 02:00 11/29/17 02:30 11/29/17 03:00 Temperature Pulse Rate 116 H 123 H 124 H Respiratory Rate 20 18 26 H Blood Pressure 127/86 125/92 H Pulse Oximetry 100 98 100 11/29/17 03:22 11/29/17 04:00 11/29/17 05:07 Temperature Pulse Rate 127 H 92 H 105 H Respiratory Rate 17 16 21 Blood Pressure 140/91 H Pulse Oximetry 99 100 100 11/29/17 07:34 Temperature Pulse Rate 100 H Respiratory Rate 18 Blood Pressure Pulse Oximetry Intake & Output 11/28/17 11/29/17 11/29/17 18:59 06:59 18:59 Intake Total 1366 / 1366 1002 / 1002 Output Total 1675 / 1675 325 / 325 Balance -309 / -309 677 / 677 Weight 64.5 kg Intake: IV 850 / 850 500 / 500 Versed Inj 50 mg In 50 ml @ 2 50 / 50 MG/HR 2 mls/hr IV.CONT TITRATE PRN Rx#:[id number] Primacor Inj 20 MG In NS Inj 80 100 / 100 ML @ 0.5 MCG/KG/MIN 10.5 mls/ hr IV.CONT .Q9H32M RUDDY Rx#: [id number] D10W Inj 1,000 ML @ 30 mls/hr 500 / 500 500 / 500 IV.SIG .Q24H RUDDY Rx#:[id number] Magnesium Sulfate Inj 2 GM In 100 / 100 NS Inj 96 ML @ 50 mls/hr IV.SIG UNSCH PRN Rx#:[id number] Rocephin Inj 1,000 MG In NS Inj 100 / 100 100 ML @ 200 mls/hr IV.SIG Q24H RUDDY Rx#:[id number] Tube Feeding 516 / 516 452 / 452 Water Bolus Amount 50 / 50 Output: Urine Amount (Catheter) 1675 / 1675 325 / 325 Condom 1675 / 1675 325 / 325 Other: # Bowel Movements 1 Result Diagrams: 11/29/17 03:50 11/29/17 03:50 Other Results: Laboratory Results - last 12 hr 11/28/17 11/29/17 11/29/17 22:53 03:50 03:50 WBC 4.7 RBC 4.21 L Hgb 12.6 L Hct 37.5 L MCV 89.0 MCH 30.0 MCHC 33.7 RDW 15.1 Plt Count 160 MPV 9.2 Neut % (Auto) 81.2 H Lymph % (Auto) 9.5 Ness % (Auto) 5.5 Eos % (Auto) 3.1 Baso % (Auto) 0.7 Neut # (Auto) 3.8 Lymph # (Auto) 0.4 L Ness # (Auto) 0.3 Eos # (Auto) 0.1 Baso # (Auto) 0.0 WBC Differential . Differential Comment Auto diff final Sodium 139 Potassium 4.3 D Chloride 104 Carbon Dioxide 31.3 Anion Gap 4 L BUN 34 H Creatinine 1.17 Estimated GFR 78 L POC Glucose 102 Random Glucose 111 H Calcium 8.0 L Phosphorus 2.0 L Magnesium 1.9 11/29/17 05:05 WBC RBC Hgb Hct MCV MCH MCHC RDW Plt Count MPV Neut % (Auto) Lymph % (Auto) Ness % (Auto) Eos % (Auto) Baso % (Auto) Neut # (Auto) Lymph # (Auto) Ness # (Auto) Eos # (Auto) Baso # (Auto) WBC Differential Differential Comment Sodium Potassium Chloride Carbon Dioxide Anion Gap BUN Creatinine Estimated GFR POC Glucose 121 H Random Glucose Calcium Phosphorus Magnesium Imaging: Abdomen/Pelvis CT 11/19/17 03:55 CONCLUSION: 1. Limited, suboptimal examination performed without intravenous or oral contrast. The study is degraded by motion artifact as well. 2. Abnormal bowel gas pattern with multiple small air-fluid levels. The bowel is suboptimally visualized and evaluated secondary to the lack of the intravenous and oral contrast as well as diffuse ascites. This may represent a gastroenteritis and/or ileus. Obstruction is less likely. 3. Diffuse ascites throughout the abdomen and pelvis. 4. Moderate size right effusion which is increased from the prior study. There is a new small left effusion. 5. Moderate cardiomegaly. 6. No definite gallstones identified. Head CT 11/19/17 03:55 CONCLUSION: 1. No acute hemorrhage or mass effect. 2. Mild motion and streak artifact. . Chest X-Ray 11/27/17 08:49 CONCLUSION: 1. Mild to moderate pulmonary vascular congestion. 2. Cardiomegaly. 3. Tiny bilateral pleural effusions. 4. Multiple tubes and lines are stable. Objective Remarks: GENERAL: Patient is 57 yo intubated and sedated SKIN: Warm and dry. HEAD: Normocephalic. EYES: No scleral icterus. No injection or drainage. NECK: Supple, trachea midline. No JVD or lymphadenopathy. CARDIOVASCULAR: Regular rate and rhythm without murmurs, gallops, or rubs. RESPIRATORY: Breath sounds equal bilaterally. No accessory muscle use. GASTROINTESTINAL: Abdomen soft, non-tender, nondistended. MUSCULOSKELETAL: No cyanosis, or edema. Neuro: Sedated Assessment and Plan - Assessment and Plan Plan: Plan by systems: Neurologic: Acute toxic encephalopathy Acute cocaine intoxication Acute metabolic encephalopathy secondary to shock On Versed drip for sedation. Daily sedation vacation. Monitor neuro status. Respiratory: Acute hypoxic and hypercarbic respiratory failure Acute severe pulmonary edema Probable Crack Lung Continue with vent support keep sats >92% On PRVC RR 16, TV550, IT:1.1, PEEP:5, FIO2: 30% Bronchodilators. SBT daily as maria elena. Cardiovascular: s/p Cardiogenic shock Acute severe systolic congestive heart failure exacerbation Acute type II non-ST elevation myocardial infarction secondary to demand ischemia known prior EF 20% (09/2017), Echo 11/27: EF <20%, mod- severe MR, PAP 53.9mmHg likely secondary to chronic cocaine use superimposed on cardiomyopathy. Monitor HR and BP keep MAP>65mmHg. on Coreg 3.125mg BID. add Lisinopril 5mg daily On Milrinone drip. Lactic acid resolved 1.1 on 11/20 Renal: Acute kidney injury- resolved Monitor renal function, I/O's, electrolytes replacement per protocol. Will need Phos replacement today Vascath d/c 11/26. Continue Lasix 40mg IV daily Renal is following. FEN/GI: Severe acute protein calorie malnutrition On tube feeds- Glucerna 1.5 with goal rate 45ml/hr Heme/ID: Daily CBC Hep C reactive, HIV reactive on screening test Change Rocephin to Merrem Monitor for signs of infections ( Fever, WBC). urine cxs: ESBL E.coli 11/27 Sputum cx: Enterobacter, Kleb ID eval Endocrine: Acute hypoglycemia, severe D10W at 30 miles an hour SSI with accuchecks Prophylaxis: GI Prophylaxis Pepcid IV DVT Prophylaxis -- SCDs Subcu heparin Lines: 11/19 right brachial arterial line 11/19 right subclavian 7 Polish triple-lumen catheter 11/19 right IJ 14 Polish 20 cm dialysis catheter d/c 11/26 11/19 [place] Prognosis appears poor. Palliative care following to assist with deciding goals of therapy. Family is leaning toward withdrawal life support if he can not be medically extubated. CCT 30 mins
[2017-11-29] MEDS: Senna/Docusate Sodium 8.6/50 MG Tablet PO SCH ×2 (08:34→20:27)
[2017-11-29] MEDS: Milrinone Inj 20 MG in Sodium Chlor 0.9% Inj 80 ML IV.CONT SCH (08:34)
[2017-11-29] MEDS: Famotidine PF Inj 20 MG/2 ML Vial IV.PUSH SCH ×2 (08:36→20:27)
--- NOTE | 2017-11-29 09:38 | P.PNNP ---
Subjective Interval history: Patient remain on the vent. and sedated. Physical Exam Vital signs: Vital Signs 11/28/17 10:00 11/28/17 10:30 11/28/17 11:00 Temperature Pulse Rate 93 H 98 H 106 H Respiratory Rate 16 16 16 Blood Pressure 88/61 L 93/70 L Pulse Oximetry 96 98 98 11/28/17 11:01 11/28/17 11:30 11/28/17 12:00 Temperature 98.7 F Pulse Rate 104 H 115 H 108 H Respiratory Rate 16 16 16 Blood Pressure 105/77 112/84 104/76 Pulse Oximetry 98 98 97 11/28/17 12:06 11/28/17 12:31 11/28/17 13:00 Temperature Pulse Rate 108 H 128 H 131 H Respiratory Rate 16 15 16 Blood Pressure 141/91 H 135/94 H Pulse Oximetry 97 100 100 11/28/17 13:30 11/28/17 14:00 11/28/17 14:30 Temperature Pulse Rate 131 H 112 H 105 H Respiratory Rate 18 16 16 Blood Pressure 134/92 H 107/69 96/64 L Pulse Oximetry 99 98 99 11/28/17 15:00 11/28/17 15:02 11/28/17 15:30 Temperature Pulse Rate 122 H 120 H 109 H Respiratory Rate 16 16 16 Blood Pressure 111/81 109/73 Pulse Oximetry 100 99 100 11/28/17 16:00 11/28/17 16:06 11/28/17 16:30 Temperature 98.7 F Pulse Rate 123 H 134 H Respiratory Rate 16 16 16 Blood Pressure 124/90 136/95 H Pulse Oximetry 100 100 100 11/28/17 17:00 11/28/17 17:01 11/28/17 17:30 Temperature Pulse Rate 113 H 115 H 126 H Respiratory Rate 18 16 29 H Blood Pressure 127/77 137/89 Pulse Oximetry 98 99 98 11/28/17 18:00 11/28/17 18:30 11/28/17 19:00 Temperature Pulse Rate 113 H 114 H 113 H Respiratory Rate 16 19 18 Blood Pressure 97/69 L 105/71 106/70 Pulse Oximetry 97 99 100 11/28/17 19:30 11/28/17 20:00 11/28/17 20:14 Temperature 100.4 F H Pulse Rate 117 H 128 H 123 H Respiratory Rate 16 26 H 16 Blood Pressure 113/79 139/100 H Pulse Oximetry 99 100 99 11/28/17 20:30 11/28/17 21:00 11/28/17 21:30 Temperature Pulse Rate 118 H 124 H 126 H Respiratory Rate 16 24 29 H Blood Pressure 114/78 115/73 110/79 Pulse Oximetry 100 100 100 11/28/17 22:00 11/28/17 22:30 11/28/17 23:00 Temperature Pulse Rate 121 H 120 H 120 H Respiratory Rate 18 22 22 Blood Pressure 112/85 112/78 106/74 Pulse Oximetry 100 100 100 11/28/17 23:30 11/28/17 23:40 11/29/17 00:00 Temperature Pulse Rate 113 H 107 H Respiratory Rate 25 H 18 16 Blood Pressure 107/70 108/70 Pulse Oximetry 98 98 11/29/17 00:30 11/29/17 00:50 11/29/17 01:00 Temperature 99.1 F Pulse Rate 104 H 106 H 106 H Respiratory Rate 16 16 18 Blood Pressure 109/70 Pulse Oximetry 99 100 100 11/29/17 01:01 11/29/17 01:31 11/29/17 02:00 Temperature Pulse Rate 118 H 117 H 116 H Respiratory Rate 15 17 20 Blood Pressure 104/87 126/84 127/86 Pulse Oximetry 100 99 100 11/29/17 02:30 11/29/17 03:00 11/29/17 03:22 Temperature Pulse Rate 123 H 124 H 127 H Respiratory Rate 18 26 H 17 Blood Pressure 125/92 H 140/91 H Pulse Oximetry 98 100 99 11/29/17 04:00 11/29/17 05:07 11/29/17 07:34 Temperature Pulse Rate 92 H 105 H 100 H Respiratory Rate 16 21 18 Blood Pressure Pulse Oximetry 100 100 11/29/17 08:00 Temperature 98.2 F Pulse Rate 110 H Respiratory Rate 18 Blood Pressure 111/67 Pulse Oximetry 100 Intake & Output 11/28/17 11/29/17 11/29/17 18:59 06:59 18:59 Intake Total 1366 / 1366 1002 / 1002 33 Output Total 1675 / 1675 325 / 325 Balance -309 / -309 677 / 677 Weight 64.5 kg Intake: IV 850 / 850 500 / 500 Versed Inj 50 mg In 50 ml @ 2 50 / 50 MG/HR 2 mls/hr IV.CONT TITRATE PRN Rx#:[id number] Primacor Inj 20 MG In NS Inj 80 100 / 100 33 / 33 ML @ 0.5 MCG/KG/MIN 10.5 mls/ hr IV.CONT .Q9H32M RUDDY Rx#: [id number] D10W Inj 1,000 ML @ 30 mls/hr 500 / 500 500 / 500 IV.SIG .Q24H RUDDY Rx#:[id number] Magnesium Sulfate Inj 2 GM In 100 / 100 NS Inj 96 ML @ 50 mls/hr IV.SIG UNSCH PRN Rx#:[id number] Rocephin Inj 1,000 MG In NS Inj 100 / 100 100 ML @ 200 mls/hr IV.SIG Q24H RUDDY Rx#:[id number] Tube Feeding 516 / 516 452 / 452 Water Bolus Amount 50 / 50 Output: Urine Amount (Catheter) 1675 / 1675 325 / 325 Condom 1675 / 1675 325 / 325 Other: # Bowel Movements 1 Narrative: GENERAL: Intubated. SKIN: Warm and dry. HEAD: Normocephalic. EYES: No scleral icterus. No injection or drainage. NECK: Supple, trachea midline. No JVD or lymphadenopathy. CARDIOVASCULAR: Regular rate and rhythm without murmurs, gallops, or rubs. Edema lower extremity, mild RESPIRATORY: Breath sounds decreased bilaterally. No accessory muscle use. Intubated GASTROINTESTINAL: Abdomen soft, non-tender, large. OG tube MUSCULOSKELETAL: No cyanosis - Urinary Catheter Management Indwelling Urethral Catheter Cath placed during this visit: yes, but has since been removed by the nurse Reason for continuing: Terminally ill/Comfort care Insertion date: 11/19/17 Insertion time: 06:43 Removal date: 11/25/17 Removal time: 15:19 Straight Cath placed during this visit: no Condom Cath placed during this visit: no Assessment and Plan - Assessment (1) Acute on chronic renal failure Code(s): N17.9 - Acute kidney failure, unspecified; N18.9 - Chronic kidney disease, unspecified Status: Acute Qualifiers: Qualified Code(s): N17.9 - Acute kidney failure, unspecified; N18.9 - Chronic kidney disease, unspecified Plan: Acute renal failure with a creatinine of 2.41 and potassium level of 7.0, with treatment repeat potassium level at 6.8 on day of consult. CHRISTINA most likely ATN with FeNa of 2.87 and urine osmolarity of 3.09 from possible cardiogenic shock and hypotension CT of abdomen with kidneys with normal in size and shape. No evidence of mass or hydronephrosis. Creatinine on 07/18 at 0.89. Creatinine stable at 1.15 Complements are low, ANCA normal, and RACHID is positive anti DNA DS pending Hemodialysis initiated 12/20 for resistant hyperkalemia and anasarca, has been discontinued Maintain strict I+O Avoid nephrotoxins including NSAIDS, aminoglycosides, and IV contrast Monitor urinary output and BMP Has low Complements, Ati DNA is borderline positive. Need to follow Anti DNA later, if increase or remain elevated, will need more workup. At present I will sign off from Nephrology. - Plan .
--- NOTE | 2017-11-29 09:51 | P.CONID ---
History of Present Illness Service: Infectious disease Consult date: 11/29/17 Requesting Physician: Emelyn Edmonds Reason for Consult: Evaluate patient with UTI, pneumonia, and HIV Primary Care Provider: UNKNOWN History of Present Illness: Patient seen and examined. Records reviewed. Patient is a 57-year-old male, brought into the hospital after he was noted by his friend to have some altered mental status. He was noted to have a blood sugar of 50 in the ambulance and he received some dextrose with some improvement in his mentation. He was able to give some history to the ED MD, and admitted that he has been using cocaine, but he has denied any chest pain, shortness of breath. In the emergency room he was found to have an elevated creatinine of 2.4, potassium of 7, elevated LFTs and CPK, as well as B natruretic peptide of 4307. He was acidotic. His mental status continued to deteriorate in the emergency room, and he developed progressive obtundation, and required emergent intubation. He also became hypotensive, and he had an echo done at bedside with severe biventricular dysfunction with an EF of less than 10%. He was placed on epinephrine for cardiogenic shock. Since that time patient has remained intubated. He had emergent hemodialysis, and his electrolytes improved, as well as his creatinine. He is off HD now. He has moderate clear secretions in his ET. He has not been tolerating CPAP trials. Palliative medicine is also following patient, and he has DNR status. Patient has history of cardiomyopathy with a prior EF of 20%, and had undergone mitral valve repair back in June 2017. During his mitral valve surgery he had a preserved LV function, but post operative, he apparently continued to use cocaine and had subsequent hospital admission with documentation of a decrease in his EF to about 20%. On this admission patient had HIV testing, and the results came back positive. Over the last 2448 hrs., his temperature had increased. He had cultures done, and his sputum culture is growing Enterobacter and Klebsiella, and his urine culture has E. coli ESBL positive. Patient currently is afebrile. His hemodynamics are stable. Monitor shows sinus rhythm, with frequent PACs. His chest x-ray has evidence of pulmonary vascular congestion. Infectious disease consultation has been requested to assist with management of his multiple infections. Review of Systems unobtainable due to endotracheal tube PMFSH - History History Provided By: Medical Record - Medical / Surgical Hx Neg / Unobtainable Medical Problems Denied: Unable to Obtain - Medical History Medical History: Medical History (Last Reviewed 11/29/17 @ 09:26 by Cathleen Snider MD) COPD (chronic obstructive pulmonary disease) Diabetes Gout Non-ischemic cardiomyopathy CHF (congestive heart failure) Cocaine use Hypertension - Surgical History Surgical History: Surgical History (Last Reviewed 11/29/17 @ 09:26 by Cathleen Snider MD) H/O mitral valve repair - Family History Family History: Family History (Last Updated 11/19/17 @ 13:41 by ANDREW Arguello) Mother Breast cancer Father Cancer - Tobacco History Tobacco Use In Past 30 Days: Yes Smoking Status: Current every day smoker (Smoked 1 pack per day since age 19) Tobacco Type: Cigarettes - Alcohol History How Often Do You Have a Drink Containing Alcohol: 4 or more times a week (Drank an average of a 6 pack of beer a day) - Substance Use History Substance History: Active Abuse (History of cocaine, marijuana use) - Substance Use Type Crack/Cocaine Status: Active Route Used: Inhalation - Travel History Recent Travel in the [place] Within the Last 8 Weeks: No Recent Travel Out of the Country Within the Last 8 Weeks: No - Immunization History Tetanus Immunization: Unsure Hx Influenza Vaccine This Season: No Medications and Allergies Active Medications: Active Medications Acetaminophen (Tylenol) 650 mg PO Q6H PRN PRN Reason: PAIN 1-10 AND/OR FEVER >101F Last Admin: 11/28/17 23:03 Dose: 650 mg Acetaminophen (Tylenol) 650 mg PO UNSCH PRN PRN Reason: SEE LABEL COMMENTS Al Hydroxide/Mg Hydroxide (Milk Of Colton Herrera) 30 ml PO Q12H PRN PRN Reason: Mild Constipation Albuterol (Albuterol Neb (Prn)) 2.5 mg NEB Q2HR NEB PRN PRN Reason: SHORTNESS OF BREATH/WHEEZING Albuterol (Duoneb Neb (Jakob)) 1 ampul NEB Q4HR NEB JAKOB Last Admin: 11/29/17 07:33 Dose: 1 ampul Bisacodyl (Dulcolax Supp) 10 mg RECTAL DAILY PRN PRN Reason: SEVERE CONSITIPATION Carvedilol (Coreg) 3.125 mg PO Q12H JAKOB Last Admin: 11/29/17 05:20 Dose: 3.125 mg Dextrose (D50w Vial) 50 ml IV.PUSH UNSCH PRN PRN Reason: PER HYPOGLYCEMIA PROTOCOL Famotidine (Pepcid Pf Inj) 20 mg IV.PUSH DAILY [facility] Last Admin: 11/29/17 08:36 Dose: 20 mg Furosemide (Lasix Inj) 40 mg IV.PUSH DAILY [facility] Last Admin: 11/29/17 08:34 Dose: 40 mg Gelatin (Gelfoam 12 Mm/7 Mm Topical) 1 foam TOPICAL PRN PRN PRN Reason: help stop bleeding from site Gentamicin Sulfate (Gentamicin Inj) 20 mg OTHER WITH DIALYSIS PRN PRN Reason: Dwell Gentamycin Lock Last Admin: 11/22/17 11:53 Dose: 20 mg Glucagon (Glucagon Inj) 1 mg OTHER UNSCH PRN PRN Reason: for Hypoglycemia Protocol Heparin Sodium (Porcine) (Heparin Inj) 8,000 units OTHER WITH DIALYSIS PRN PRN Reason: for machine prime Heparin Sodium (Porcine) (Heparin Inj) 1,000 units OTHER WITH DIALYSIS PRN PRN Reason: Dwell Heparin to Fill Catheter Heparin Sodium (Porcine) (Heparin Inj) 5,000 units SQ Q8HR [facility] Last Admin: 11/29/17 05:20 Dose: 5,000 units Midazolam HCl (Versed Inj) 50 mg in 50 mls @ 2 mls/hr IV.CONT TITRATE PRN; Protocol PRN Reason: Per Protocol Last Titration: 11/28/17 19:00 Dose: 2 mg/hr, 2 mls/hr Sodium Chloride (Ns Inj) 1,000 mls @ 0 mls/hr OTHER .Q0M PRN PRN Reason: for prime and rinse back Sodium Chloride (Ns Inj) 1,000 mls @ 200 mls/hr OTHER .Q5H PRN PRN Reason: for dialyzer flush PRN Sodium Chloride (Ns Inj) 1,000 mls @ 0 mls/hr IV.CONT .Q0M PRN PRN Reason: hypotension / volume replace Milrinone Lactate 20 mg/ (Sodium Chloride) 100 mls @ 10.5 mls/hr IV.CONT .Q9H32M [facility]; Protocol Last Admin: 11/29/17 08:34 Dose: 0.25 mcg/kg/min, 5.25 mls/hr Dextrose (D10w Inj) 1,000 mls @ 30 mls/hr IV.SIG .Q24H JAKOB Last Admin: 11/29/17 01:05 Dose: 30 mls/hr Magnesium Sulfate Inj 4 gm/ (Sodium Chloride) 100 mls @ 50 mls/hr IV.SIG UNSCH PRN PRN Reason: For Magnesium 0.9 - 1.1 mg/dL Potassium Chloride (Kcl 40 Meq Premix Inj) 40 meq in 100 mls @ 25 mls/hr IV.SIG Q2H PRN PRN Reason: For Potassium 2.8 - 3.2 mEq/L Potassium Chloride (Kcl 20 Meq Premix Inj) 20 meq in 100 mls @ 50 mls/hr IV.SIG Q2H PRN PRN Reason: For Potassium 3.3 - 3.5 mEq/L Potassium Chloride (Kcl 40 Meq Premix Inj) 40 meq in 100 mls @ 25 mls/hr IV.SIG UNSCH PRN PRN Reason: For Potassium 3.3 - 3.5 mEq/L Potassium Chloride (Kcl 20 Meq Premix Inj) 20 meq in 100 mls @ 50 mls/hr IV.SIG Q2H PRN PRN Reason: For Potassium 2.8 - 3.2 mEq/L Potassium Phosphate 30 mmol/ (Sodium Chloride) 260 mls @ 42 mls/hr IV.SIG UNSCH PRN PRN Reason: SEE LABEL COMMENTS Last Infusion: 11/27/17 17:20 Dose: Infused Sodium Phosphate 30 mmol/ (Sodium Chloride) 260 mls @ 42 mls/hr IV.SIG UNSCH PRN PRN Reason: For Phosphorus < 2.5 mg/dL Last Admin: 11/29/17 06:34 Dose: 42 mls/hr Magnesium Sulfate Inj 2 gm/ (Sodium Chloride) 100 mls @ 50 mls/hr IV.SIG UNSCH PRN PRN Reason: For Magnesium 1.2 - 1.6 mg/dL Last Infusion: 11/28/17 11:45 Dose: Infused Meropenem 1,000 mg/ Sodium (Chloride) 100 mls @ 200 mls/hr IV.SIG Q8H JAKOB Insulin Human Regular (Novolin R Correctional Sugar Inj) 0 units SQ Q6HR JAKOB; Protocol Last Admin: 11/29/17 06:24 Dose: Not Given Lactulose (Lactulose Liq) 30 ml PO DAILY PRN PRN Reason: SEVERE CONSITIPATION Lisinopril (Prinivil) 5 mg PO DAILY [facility] Magnesium Oxide (Mag-Ox) 800 mg PO UNSCH PRN PRN Reason: For Magnesium 1.2 - 1.6 mg/dL Mannitol (Mannitol Inj) 12.5 gm IV.PUSH UNSCH PRN PRN Reason: hypotension / volume replace Morphine Sulfate (Morphine Inj) 4 mg IV.PUSH Q2H PRN PRN Reason: AGITATION Last Admin: 11/28/17 04:17 Dose: 4 mg Nitroglycerin (Nitrostat Sl) 0.4 mg SL Q5M PRN PRN Reason: CHEST PAIN Ondansetron HCl (Zofran Odt) 4 mg PO UNSCH PRN PRN Reason: NAUSEA OR VOMITING Potassium Bicarb/Potassium Chloride (K-Lyte Cl Eff) 50 meq PO UNSCH PRN PRN Reason: For Potassium 3.3 - 3.5 mEq/L Last Admin: 11/28/17 09:04 Dose: 50 meq Potassium Phosphate (K-Phos Original) 2,000 mg PO Q4H PRN PRN Reason: Phosphorus Less Than 2.5 mg/dL Potassium Phosphate (K-Phos Original) 2,000 mg PO UNSCH PRN PRN Reason: SEE LABEL COMMENTS Senna/Docusate Sodium (Irma-Colace) 1 tab PO BID [facility] Last Admin: 11/29/17 08:34 Dose: 1 tab Sennosides (Senokot) 17.2 mg PO Q12H PRN PRN Reason: Moderate Constipation Sodium Chloride (Ns Flush) 2 ml IV.FLUSH BID [facility] Last Admin: 11/29/17 08:36 Dose: 2 ml Sodium Chloride (Ns Flush) 2 ml IV.FLUSH PRN PRN PRN Reason: FLUSH AFTER USING IV ACCESS Last Admin: 11/28/17 08:06 Dose: 2 ml Sodium Chloride (Ns Flush) 5 ml IV.FLUSH PRN PRN PRN Reason: flush each lumen during HD Last Admin: 11/28/17 08:06 Dose: 5 ml Terbutaline Sulfate (Brethine Inj) 1 mg SQ UNSCH PRN PRN Reason: For Extravasation Allergies Allergy/AdvReac Type Severity Reaction Status Date / Time No Known Allergies Allergy Unverified 11/19/17 04:45 Home Medications Medication Instructions Recorded Confirmed Type albuterol sulfate 2 puff INHALATION Q4-6H PRN 11/03/17 11/19/17 History amlodipine [Norvasc] 5 mg PO DAILY 11/03/17 11/19/17 History carvedilol 12.5 mg PO BID 11/03/17 11/19/17 History furosemide 20 mg PO DAILY 11/03/17 11/19/17 History lisinopril PO DAILY 11/03/17 History warfarin 5 mg PO Q OTHER DAY 11/03/17 11/19/17 History Exam Vital signs: Vital Signs 11/28/17 09:30 11/28/17 10:00 11/28/17 10:30 Temperature Pulse Rate 120 H 93 H 98 H Respiratory Rate 16 16 16 Blood Pressure 116/86 88/61 L 93/70 L Pulse Oximetry 99 96 98 11/28/17 11:00 11/28/17 11:01 11/28/17 11:30 Temperature Pulse Rate 106 H 104 H 115 H Respiratory Rate 16 16 16 Blood Pressure 105/77 112/84 Pulse Oximetry 98 98 98 11/28/17 12:00 11/28/17 12:06 11/28/17 12:31 Temperature 98.7 F Pulse Rate 108 H 108 H 128 H Respiratory Rate 16 16 15 Blood Pressure 104/76 141/91 H Pulse Oximetry 97 97 100 11/28/17 13:00 11/28/17 13:30 11/28/17 14:00 Temperature Pulse Rate 131 H 131 H 112 H Respiratory Rate 16 18 16 Blood Pressure 135/94 H 134/92 H 107/69 Pulse Oximetry 100 99 98 11/28/17 14:30 11/28/17 15:00 11/28/17 15:02 Temperature Pulse Rate 105 H 122 H 120 H Respiratory Rate 16 16 16 Blood Pressure 96/64 L 111/81 Pulse Oximetry 99 100 99 11/28/17 15:30 11/28/17 16:00 11/28/17 16:06 Temperature 98.7 F Pulse Rate 109 H 123 H Respiratory Rate 16 16 16 Blood Pressure 109/73 124/90 Pulse Oximetry 100 100 100 11/28/17 16:30 11/28/17 17:00 11/28/17 17:01 Temperature Pulse Rate 134 H 113 H 115 H Respiratory Rate 16 18 16 Blood Pressure 136/95 H 127/77 Pulse Oximetry 100 98 99 11/28/17 17:30 11/28/17 18:00 11/28/17 18:30 Temperature Pulse Rate 126 H 113 H 114 H Respiratory Rate 29 H 16 19 Blood Pressure 137/89 97/69 L 105/71 Pulse Oximetry 98 97 99 11/28/17 19:00 11/28/17 19:30 11/28/17 20:00 Temperature 100.4 F H Pulse Rate 113 H 117 H 128 H Respiratory Rate 18 16 26 H Blood Pressure 106/70 113/79 139/100 H Pulse Oximetry 100 99 100 11/28/17 20:14 11/28/17 20:30 11/28/17 21:00 Temperature Pulse Rate 123 H 118 H 124 H Respiratory Rate 16 16 24 Blood Pressure 114/78 115/73 Pulse Oximetry 99 100 100 11/28/17 21:30 11/28/17 22:00 11/28/17 22:30 Temperature Pulse Rate 126 H 121 H 120 H Respiratory Rate 29 H 18 22 Blood Pressure 110/79 112/85 112/78 Pulse Oximetry 100 100 100 11/28/17 23:00 11/28/17 23:30 11/28/17 23:40 Temperature Pulse Rate 120 H 113 H Respiratory Rate 22 25 H 18 Blood Pressure 106/74 107/70 Pulse Oximetry 100 98 11/29/17 00:00 11/29/17 00:30 11/29/17 00:50 Temperature Pulse Rate 107 H 104 H 106 H Respiratory Rate 16 16 16 Blood Pressure 108/70 109/70 Pulse Oximetry 98 99 100 11/29/17 01:00 11/29/17 01:01 11/29/17 01:31 Temperature 99.1 F Pulse Rate 106 H 118 H 117 H Respiratory Rate 18 15 17 Blood Pressure 104/87 126/84 Pulse Oximetry 100 100 99 11/29/17 02:00 11/29/17 02:30 11/29/17 03:00 Temperature Pulse Rate 116 H 123 H 124 H Respiratory Rate 20 18 26 H Blood Pressure 127/86 125/92 H Pulse Oximetry 100 98 100 11/29/17 03:22 11/29/17 04:00 11/29/17 05:07 Temperature Pulse Rate 127 H 92 H 105 H Respiratory Rate 17 16 21 Blood Pressure 140/91 H Pulse Oximetry 99 100 100 11/29/17 07:34 11/29/17 08:00 Temperature 98.2 F Pulse Rate 100 H 110 H Respiratory Rate 18 18 Blood Pressure 111/67 Pulse Oximetry 100 Intake & Output 11/28/17 11/29/17 11/29/17 18:59 06:59 18:59 Intake Total 1366 / 1366 1002 / 1002 / 33 Output Total 1675 / 1675 325 / 325 Balance -309 / -309 677 / 677 / Weight 64.5 kg Intake: IV 850 / 850 500 / 500 / 33 Versed Inj 50 mg In 50 ml @ 2 50 / 50 MG/HR 2 mls/hr IV.CONT TITRATE PRN Rx#:[id number] Primacor Inj 20 MG In NS Inj 80 100 / 100 33 / 33 ML @ 0.5 MCG/KG/MIN 10.5 mls/ hr IV.CONT .Q9H32M JAKOB Rx#: [id number] D10W Inj 1,000 ML @ 30 mls/hr 500 / 500 500 / 500 IV.SIG .Q24H JAKOB Rx#:[id number] Magnesium Sulfate Inj 2 GM In 100 / 100 NS Inj 96 ML @ 50 mls/hr IV.SIG UNSCH PRN Rx#:[id number] Rocephin Inj 1,000 MG In NS Inj 100 / 100 100 ML @ 200 mls/hr IV.SIG Q24H JAKOB Rx#:[id number] Tube Feeding 516 / 516 452 / 452 Water Bolus Amount 50 / 50 Output: Urine Amount (Catheter) 1675 / 1675 325 / 325 Condom 1675 / 1675 325 / 325 Other: # Bowel Movements 1 Narrative: Physical Examination GENERAL: Patient is a well-nourished, well-developed male, opens eyes when stimulated, on the vent, not in distress. SKIN: Cool and dry. No generalized rash, no ecchymoses and no evidence of embolic lesions. HEAD: Atraumatic. Normocephalic. No temporal wasting, or tenderness. EYES: [place] conjunctiva. No petechia or hemorrhage. Has mild conjunctival injection. Pupils equal, round and reactive to light. No scleral icterus. EARS, NOSE AND THROAT: Nose without bleeding or purulent nasal discharge. He is orally intubated. NECK: Trachea midline. Supple and not tender, no meningeal signs CARDIOVASCULAR: Irregular rate and rhythm. No murmurs, rubs or gallops heard. Sternotomy scar compatible with surgical history. RESPIRATORY: Coarse breath sounds bilaterally, decreased at the bases. ABDOMEN: Soft, non-tender, nondistended. Bowel sounds present and normoactive. No guarding. No rebound. No organomegaly. EXTREMITIES: No clubbing, cyanosis, or edema.No joint effusion, has good ROM. No calf tenderness. Well perfused and warm. NEUROLOGICAL: Opens eyes when stimulated, not interacting. No Babinski, or ankle clonus. PSYCHIATRIC: Unable to assess LINE: No evidence of infection, has RSC TLC : Condom cath in place, urine blood tinged Results - Labs CBC & Chem 7: 11/29/17 03:50 11/29/17 03:50 Labs: Laboratory Results - last 24 hr 11/27/17 11/28/17 11/28/17 13:30 11:18 17:05 WBC RBC Hgb Hct MCV MCH MCHC RDW Plt Count MPV Neut % (Auto) Lymph % (Auto) [place] % (Auto) Eos % (Auto) Baso % (Auto) Neut # (Auto) Lymph # (Auto) [place] # (Auto) Eos # (Auto) Baso # (Auto) WBC Differential Differential Comment Sodium Potassium Chloride Carbon Dioxide Anion Gap BUN Creatinine Estimated GFR POC Glucose 112 H 116 H Random Glucose Calcium Phosphorus Magnesium Urine Color Yellow Urine Clarity Hazy H Urine pH 5.0 Ur Specific [place] 1.006 Urine Protein Negative Urine Glucose (UA) Negative Urine Ketones Negative Urine Occult Blood Large H Urine Nitrate Negative Urine Bilirubin Negative Urine Urobilinogen 2.0 H Ur Leukocyte Esterase Moderate H Urine RBC 18 H Urine WBC 70 H Urine WBC Clumps Few H Urine Bacteria Many H Micro UA Comment Cath-culture ind Urine Culture Comments Cath-cult indicated 11/28/17 11/29/17 11/29/17 22:53 03:50 03:50 WBC 4.7 RBC 4.21 L Hgb 12.6 L Hct 37.5 L MCV 89.0 MCH 30.0 MCHC 33.7 RDW 15.1 Plt Count 160 MPV 9.2 Neut % (Auto) 81.2 H Lymph % (Auto) 9.5 [place] % (Auto) 5.5 Eos % (Auto) 3.1 Baso % (Auto) 0.7 Neut # (Auto) 3.8 Lymph # (Auto) 0.4 L [place] # (Auto) 0.3 Eos # (Auto) 0.1 Baso # (Auto) 0.0 WBC Differential . Differential Comment Auto diff final Sodium 139 Potassium 4.3 D Chloride 104 Carbon Dioxide 31.3 Anion Gap 4 L BUN 34 H Creatinine 1.17 Estimated GFR 78 L POC Glucose 102 Random Glucose 111 H Calcium 8.0 L Phosphorus 2.0 L Magnesium 1.9 Urine Color Urine Clarity Urine pH Ur Specific [place] Urine Protein Urine Glucose (UA) Urine Ketones Urine Occult Blood Urine Nitrate Urine Bilirubin Urine Urobilinogen Ur Leukocyte Esterase Urine RBC Urine WBC Urine WBC Clumps Urine Bacteria Micro UA Comment Urine Culture Comments 11/29/17 05:05 WBC RBC Hgb Hct MCV MCH MCHC RDW Plt Count MPV Neut % (Auto) Lymph % (Auto) [place] % (Auto) Eos % (Auto) Baso % (Auto) Neut # (Auto) Lymph # (Auto) [place] # (Auto) Eos # (Auto) Baso # (Auto) WBC Differential Differential Comment Sodium Potassium Chloride Carbon Dioxide Anion Gap BUN Creatinine Estimated GFR POC Glucose 121 H Random Glucose Calcium Phosphorus Magnesium Urine Color Urine Clarity Urine pH Ur Specific [place] Urine Protein Urine Glucose (UA) Urine Ketones Urine Occult Blood Urine Nitrate Urine Bilirubin Urine Urobilinogen Ur Leukocyte Esterase Urine RBC Urine WBC Urine WBC Clumps Urine Bacteria Micro UA Comment Urine Culture Comments Assessment and Plan - Plan Impression Fevers since 11/28, has been on vent since 11/19 - has HCAP/VAP, C/S with Enterobacter and Klebsiella - UTI, had goins prior, now with condom cath, UC with E coli ESBL+ Respiratory failure, CHF, PNA Cardiomyopathy, EF <10% Prior MV repair Active cocaine use Newly Dx HIV S/P renal failure, had 2 HD, renal function improved Recommendation Continue Meropenem Repeat BC with next fever Get CD4 counts baseline for his new HIV Follow C/S Monitor temps Monitor progress Weaning per CCM Course of Abx will be determined once work-up completed I will follow along with you Thank you for this consultation D/W RHYS
[2017-11-29] MEDS ORDERED: Meropenem Inj 1,000 MG in Sodium Chlor 0.9% Inj 100 ML IV.SIG STA (09:55)
[2017-11-29] MEDS ORDERED: Meropenem Inj 1,000 MG in Sodium Chlor 0.9% Inj 100 ML IV.SIG ONE (10:23)
[2017-11-29] MEDS: Lisinopril 5 MG Tablet PO SCH (10:39)
[2017-11-29] MEDS: Midazolam 50 MG/50 ML Inj 50 MG/50 ML BAG IV.CONT PRN (11:43)
--- NOTE | 2017-11-29 12:15 | P.PNPAL ---
Reason for Visit Reason for visit: a. To assist with evaluation and management of symptoms including: Altered mental status, edema b. To assist medical decision maker(s) with: better understanding of current medical conditions; weighing benefits/burdens of medical treatment options; making medical treatment decisions. Subjective Subjective/Interval History: Follow up medically necessary for symptom management. Patient remains intubated, sedated on mechanical ventilation. Report from bedside RN, patient continues to fail CPAP-patient gets tachycardic and apneic for 15-20 seconds. Patient's eyes open, follows commands with all 4 extremities. Patient is currently on 4 mg midazolam infusion. He remains on 2.5 mcg/kg/min and continues to have beats 4-6 beats run of asymptomatic V. tach. Patient is currently tachycardic. Patient's edema to bilateral upper extremities and lower extremities improved.Trace edema noted to BLE and 2+ edema to BUE. Patient is on furosemide 40 mg IVP daily. Urine culture collected on 11/27/17 is growing Escherichia coli ESBL positive. Sputum culture collected on 11/27/17 is growing Enterobacter and Klebsiella. Infectious disease Dr. Esperanza henry consulted on 11/29/17 for evaluate patient with urinary tract infection, pneumonia and HIV, recommended repeat blood cultures, CD4 counts baseline for newly diagnosed HIV. Laboratory workup today revealing WBC 4.7, hemoglobin 12.6, hematocrit 37.5, platelet count 160, sodium 139, potassium 4.3, BUN/creatinine 34/1.17, random glucose 111, calcium 8.0, phosphorus 2.0. Case discussed with bedside RN and Dr. Bee. Patient`s family (Mother and sister Kaylie) visiting with patient. Updated on patient`s current medical status including infection in urine and sputum. Patient`s mother still wants to give patient a chance to be medically extubated. Discussed challenges that patient is currently facing including apneic events, V-runs, and tachycardic during CPAP trials. Family leaning towards compassionate withdrawal from life support if patient is not able to be medically extubated. Family/Friend Interactions: Met with family at bedside. See interval note Advance Directives Living Will: Never completed Health Care Surrogate: Never completed Durable Power of Custodial Operations Manager: Never completed Health Care Surrogate Name and Number: HCP: Mother-Angelina Medina Objective Vital Signs: Vital Signs 11/28/17 12:00 11/28/17 12:06 08/09/18 12:31 Temperature 98.7 F Pulse Rate 108 H 108 H 128 H Respiratory Rate 16 16 15 Blood Pressure 104/76 141/91 H Pulse Oximetry 97 97 100 11/28/17 13:00 11/28/17 13:30 11/28/17 14:00 Temperature Pulse Rate 131 H 131 H 112 H Respiratory Rate 16 18 16 Blood Pressure 135/94 H 134/92 H 107/69 Pulse Oximetry 100 99 98 11/28/17 14:30 11/28/17 15:00 11/28/17 15:02 Temperature Pulse Rate 105 H 122 H 120 H Respiratory Rate 16 16 16 Blood Pressure 96/64 L 111/81 Pulse Oximetry 99 100 99 11/28/17 15:30 11/28/17 16:00 11/28/17 16:06 Temperature 98.7 F Pulse Rate 109 H 123 H Respiratory Rate 16 16 16 Blood Pressure 109/73 124/90 Pulse Oximetry 100 100 100 11/28/17 16:30 11/28/17 17:00 11/28/17 17:01 Temperature Pulse Rate 134 H 113 H 115 H Respiratory Rate 16 18 16 Blood Pressure 136/95 H 127/77 Pulse Oximetry 100 98 99 11/28/17 17:30 11/28/17 18:00 11/28/17 18:30 Temperature Pulse Rate 126 H 113 H 114 H Respiratory Rate 29 H 16 19 Blood Pressure 137/89 97/69 L 105/71 Pulse Oximetry 98 97 99 11/28/17 19:00 11/28/17 19:30 11/28/17 20:00 Temperature 100.4 F H Pulse Rate 113 H 117 H 128 H Respiratory Rate 18 16 26 H Blood Pressure 106/70 113/79 139/100 H Pulse Oximetry 100 99 100 11/28/17 20:14 11/28/17 20:30 11/28/17 21:00 Temperature Pulse Rate 123 H 118 H 124 H Respiratory Rate 16 16 24 Blood Pressure 114/78 115/73 Pulse Oximetry 99 100 100 11/28/17 21:30 11/28/17 22:00 11/28/17 22:30 Temperature Pulse Rate 126 H 121 H 120 H Respiratory Rate 29 H 18 22 Blood Pressure 110/79 112/85 112/78 Pulse Oximetry 100 100 100 11/28/17 23:00 11/28/17 23:30 11/28/17 23:40 Temperature Pulse Rate 120 H 113 H Respiratory Rate 22 25 H 18 Blood Pressure 106/74 107/70 Pulse Oximetry 100 98 11/29/17 00:00 11/29/17 00:30 11/29/17 00:50 Temperature Pulse Rate 107 H 104 H 106 H Respiratory Rate 16 16 16 Blood Pressure 108/70 109/70 Pulse Oximetry 98 99 100 11/29/17 01:00 11/29/17 01:01 11/29/17 01:31 Temperature 99.1 F Pulse Rate 106 H 118 H 117 H Respiratory Rate 18 15 17 Blood Pressure 104/87 126/84 Pulse Oximetry 100 100 99 11/29/17 02:00 11/29/17 02:30 11/29/17 03:00 Temperature Pulse Rate 116 H 123 H 124 H Respiratory Rate 20 18 26 H Blood Pressure 127/86 125/92 H Pulse Oximetry 100 98 100 11/29/17 03:22 11/29/17 04:00 11/29/17 05:07 Temperature Pulse Rate 127 H 92 H 105 H Respiratory Rate 17 16 21 Blood Pressure 140/91 H Pulse Oximetry 99 100 100 11/29/17 07:34 11/29/17 08:00 11/29/17 11:22 Temperature 98.2 F Pulse Rate 100 H 110 H 100 H Respiratory Rate 18 18 24 Blood Pressure 111/67 Pulse Oximetry 100 Intake & Output 11/28/17 11/29/17 11/29/17 18:59 06:59 18:59 Intake Total 1366 / 1366 1002 / 1002 183 / 183 Output Total 1675 / 1675 325 / 325 Balance -309 / -309 677 / 677 183 / 183 Weight 64.5 kg Intake: IV 850 / 850 500 / 500 183 / 183 Versed Inj 50 mg In 50 ml @ 2 50 / 50 50 / 50 MG/HR 2 mls/hr IV.CONT TITRATE PRN Rx#:[id number] Primacor Inj 20 MG In NS Inj 80 100 / 100 33 / 33 ML @ 0.5 MCG/KG/MIN 10.5 mls/ hr IV.CONT .Q9H32M [facility] Rx#: [id number] D10W Inj 1,000 ML @ 30 mls/hr 500 / 500 500 / 500 IV.SIG .Q24H [facility] Rx#:[id number] Magnesium Sulfate Inj 2 GM In 100 / 100 NS Inj 96 ML @ 50 mls/hr IV.SIG UNSCH PRN Rx#:[id number] Merrem Inj 1,000 MG In NS Inj 100 / 100 100 ML @ 200 mls/hr IV.SIG ONCE ONE Rx#:[id number] Rocephin Inj 1,000 MG In NS Inj 100 / 100 100 ML @ 200 mls/hr IV.SIG Q24H [facility] Rx#:[id number] Tube Feeding 516 / 516 452 / 452 Water Bolus Amount 50 / 50 Output: Urine Amount (Catheter) 1675 / 1675 325 / 325 Condom 1675 / 1675 325 / 325 Other: # Bowel Movements 1 Physical Exam: CONSTITUTIONAL/GENERAL: This is an adequately nourished patient, intubated, sedated, in no apparent distress. TUBES/LINES/DRAINS: right subclavian central line, ETT, Condom catheter,OGT, . SKIN: No jaundice, rashes, or lesions. No wounds seen anteriorly. Skin temperature appropriate. Not diaphoretic. HEAD: Atraumatic. Normocephalic. EYES: Pupils equal and round and sluggishly reactive. No scleral icterus. No injection or drainage. Fundi not examined. ENT: Nose without bleeding or purulent drainage. Orally intubated. NECK: Trachea midline. Supple, nontender. CARDIOVASCULAR: S1, S2, S3. Irregular rhythm, controlled rate without gallops, or rubs. Soft 1/6 systolic ejection murmur. No JVD. Pedal pulses+ve by doppler RESPIRATORY/CHEST: Symmetric, unlabored respirations. Diminished lung sounds. GASTROINTESTINAL: Abdomen soft, nondistended. Intermittent BS. OGT with TF infusing at 55ml.hr GENITOURINARY: Without palpable bladder distension. Condom catheter MUSCULOSKELETAL: Extremities without clubbing or cyanosis, trace edema to BLE, 2 + to BLE. No mottling or clubbing. NEUROLOGICAL: Intubated, moves all 4 extremities to command. PSYCHIATRIC: Unable to assess. Currently sedated and calm. . Diagnostic Tests Laboratory: Laboratory Results - last 72 hr 11/22/17 11/22/17 11/27/17 04:09 16:45 03:30 WBC 3.6 L RBC 4.76 Hgb 13.8 Hct 42.6 MCV 89.6 MCH 29.0 MCHC 32.4 RDW 15.3 Plt Count 104 L MPV 9.2 Neut % (Auto) 68.1 Lymph % (Auto) 15.8 Elliott % (Auto) 8.1 H Eos % (Auto) 7.1 H Baso % (Auto) 0.9 Neut # (Auto) 2.4 Lymph # (Auto) 0.6 L Elliott # (Auto) 0.3 Eos # (Auto) 0.3 Baso # (Auto) 0.0 WBC Differential . Differential Comment Auto diff final Puncture Site Patient Temperature O2 Saturation ABG pH ABG pCO2 ABG pO2 ABG HCO3 ABG O2 Content ABG Base Excess ABG Methemoglobin Kevin Test Hemoglobin Carboxyhemoglobin O2 Delivery Device Vent Setting Inspired O2 Critical Value Sodium Potassium Chloride Carbon Dioxide Anion Gap BUN Creatinine Estimated GFR POC Glucose Random Glucose Calcium Phosphorus Magnesium Albumin Urine Color Urine Clarity Urine pH Ur Specific [place] Urine Protein Urine Glucose (UA) Urine Ketones Urine Occult Blood Urine Nitrate Urine Bilirubin Urine Urobilinogen Ur Leukocyte Esterase Urine RBC Urine WBC Urine WBC Clumps Urine Bacteria Micro UA Comment Urine Culture Comments Double Strand DNA Ab 31.2 H HIV-1 Antibody Positive HIV-2 Antibody Indeterminate HIV (1&2) Ag & Ab Refer Reactive 11/27/17 11/27/17 11/27/17 03:30 09:52 12:30 WBC RBC Hgb Hct MCV MCH MCHC RDW Plt Count MPV Neut % (Auto) Lymph % (Auto) Elliott % (Auto) Eos % (Auto) Baso % (Auto) Neut # (Auto) Lymph # (Auto) Elliott # (Auto) Eos # (Auto) Baso # (Auto) WBC Differential Differential Comment Puncture Site Right radial Patient Temperature 98.6 O2 Saturation 96 ABG pH 7.46 H ABG pCO2 36 L ABG pO2 108 ABG HCO3 25 ABG O2 Content 19.5 ABG Base Excess 1.2 ABG Methemoglobin 1.4 Kevin Test Present Hemoglobin 14.4 Carboxyhemoglobin 1.0 O2 Delivery Device Ventilator Vent Setting Inspired O2 30 Critical Value No Sodium 142 Potassium 3.4 L Chloride 106 Carbon Dioxide 27.0 Anion Gap 9 BUN 28 H Creatinine 1.15 Estimated GFR 79 L POC Glucose 89 Random Glucose 83 Calcium 7.9 L Phosphorus 2.1 L Magnesium Albumin 1.7 L Urine Color Urine Clarity Urine pH Ur Specific [place] Urine Protein Urine Glucose (UA) Urine Ketones Urine Occult Blood Urine Nitrate Urine Bilirubin Urine Urobilinogen Ur Leukocyte Esterase Urine RBC Urine WBC Urine WBC Clumps Urine Bacteria Micro UA Comment Urine Culture Comments Double Strand DNA Ab HIV-1 Antibody HIV-2 Antibody HIV (1&2) Ag & Ab Refer 11/27/17 11/27/17 11/27/17 13:30 16:05 18:00 WBC RBC Hgb Hct MCV MCH MCHC RDW Plt Count MPV Neut % (Auto) Lymph % (Auto) Elliott % (Auto) Eos % (Auto) Baso % (Auto) Neut # (Auto) Lymph # (Auto) Elliott # (Auto) Eos # (Auto) Baso # (Auto) WBC Differential Differential Comment Puncture Site Patient Temperature O2 Saturation ABG pH ABG pCO2 ABG pO2 ABG HCO3 ABG O2 Content ABG Base Excess ABG Methemoglobin Kevin Test Hemoglobin Carboxyhemoglobin O2 Delivery Device Vent Setting Inspired O2 Critical Value Sodium Potassium 3.7 Chloride Carbon Dioxide Anion Gap BUN Creatinine Estimated GFR POC Glucose 92 Random Glucose Calcium Phosphorus Magnesium Albumin Urine Color Yellow Urine Clarity Hazy H Urine pH 5.0 Ur Specific [place] 1.006 Urine Protein Negative Urine Glucose (UA) Negative Urine Ketones Negative Urine Occult Blood Large H Urine Nitrate Negative Urine Bilirubin Negative Urine Urobilinogen 2.0 H Ur Leukocyte Esterase Moderate H Urine RBC 18 H Urine WBC 70 H Urine WBC Clumps Few H Urine Bacteria Many H Micro UA Comment Cath-culture ind Urine Culture Comments Cath-cult indicated Double Strand DNA Ab HIV-1 Antibody HIV-2 Antibody HIV (1&2) Ag & Ab Refer 11/27/17 11/28/17 11/28/17 23:27 03:30 03:30 WBC 4.5 RBC 4.79 Hgb 13.8 Hct 43.1 MCV 90.2 MCH 28.9 MCHC 32.0 RDW 15.5 Plt Count 127 L MPV 8.7 Neut % (Auto) 78.6 H Lymph % (Auto) 9.8 Elliott % (Auto) 6.4 Eos % (Auto) 4.2 H Baso % (Auto) 1.0 Neut # (Auto) 3.5 Lymph # (Auto) 0.4 L Elliott # (Auto) 0.3 Eos # (Auto) 0.2 Baso # (Auto) 0.0 WBC Differential . Differential Comment Auto diff final Puncture Site Patient Temperature O2 Saturation ABG pH ABG pCO2 ABG pO2 ABG HCO3 ABG O2 Content ABG Base Excess ABG Methemoglobin Kevin Test Hemoglobin Carboxyhemoglobin O2 Delivery Device Vent Setting Inspired O2 Critical Value Sodium 139 Potassium 3.5 Chloride 105 Carbon Dioxide 28.1 Anion Gap 6 BUN 28 H Creatinine 1.22 Estimated GFR 74 L POC Glucose 109 Random Glucose 106 Calcium 7.7 L Phosphorus 2.5 Magnesium 1.6 Albumin Urine Color Urine Clarity Urine pH Ur Specific [place] Urine Protein Urine Glucose (UA) Urine Ketones Urine Occult Blood Urine Nitrate Urine Bilirubin Urine Urobilinogen Ur Leukocyte Esterase Urine RBC Urine WBC Urine WBC Clumps Urine Bacteria Micro UA Comment Urine Culture Comments Double Strand DNA Ab HIV-1 Antibody HIV-2 Antibody HIV (1&2) Ag & Ab Refer 11/28/17 11/28/17 11/28/17 05:00 11:18 17:05 WBC RBC Hgb Hct MCV MCH MCHC RDW Plt Count MPV Neut % (Auto) Lymph % (Auto) Elliott % (Auto) Eos % (Auto) Baso % (Auto) Neut # (Auto) Lymph # (Auto) Elliott # (Auto) Eos # (Auto) Baso # (Auto) WBC Differential Differential Comment Puncture Site Patient Temperature O2 Saturation ABG pH ABG pCO2 ABG pO2 ABG HCO3 ABG O2 Content ABG Base Excess ABG Methemoglobin Kevin Test Hemoglobin Carboxyhemoglobin O2 Delivery Device Vent Setting Inspired O2 Critical Value Sodium Potassium Chloride Carbon Dioxide Anion Gap BUN Creatinine Estimated GFR POC Glucose 101 112 H 116 H Random Glucose Calcium Phosphorus Magnesium Albumin Urine Color Urine Clarity Urine pH Ur Specific [place] Urine Protein Urine Glucose (UA) Urine Ketones Urine Occult Blood Urine Nitrate Urine Bilirubin Urine Urobilinogen Ur Leukocyte Esterase Urine RBC Urine WBC Urine WBC Clumps Urine Bacteria Micro UA Comment Urine Culture Comments Double Strand DNA Ab HIV-1 Antibody HIV-2 Antibody HIV (1&2) Ag & Ab Refer 11/28/17 11/29/17 11/29/17 22:53 03:50 03:50 WBC 4.7 RBC 4.21 L Hgb 12.6 L Hct 37.5 L MCV 89.0 MCH 30.0 MCHC 33.7 RDW 15.1 Plt Count 160 MPV 9.2 Neut % (Auto) 81.2 H Lymph % (Auto) 9.5 Elliott % (Auto) 5.5 Eos % (Auto) 3.1 Baso % (Auto) 0.7 Neut # (Auto) 3.8 Lymph # (Auto) 0.4 L Elliott # (Auto) 0.3 Eos # (Auto) 0.1 Baso # (Auto) 0.0 WBC Differential . Differential Comment Auto diff final Puncture Site Patient Temperature O2 Saturation ABG pH ABG pCO2 ABG pO2 ABG HCO3 ABG O2 Content ABG Base Excess ABG Methemoglobin Kevin Test Hemoglobin Carboxyhemoglobin O2 Delivery Device Vent Setting Inspired O2 Critical Value Sodium 139 Potassium 4.3 D Chloride 104 Carbon Dioxide 31.3 Anion Gap 4 L BUN 34 H Creatinine 1.17 Estimated GFR 78 L POC Glucose 102 Random Glucose 111 H Calcium 8.0 L Phosphorus 2.0 L Magnesium 1.9 Albumin Urine Color Urine Clarity Urine pH Ur Specific [place] Urine Protein Urine Glucose (UA) Urine Ketones Urine Occult Blood Urine Nitrate Urine Bilirubin Urine Urobilinogen Ur Leukocyte Esterase Urine RBC Urine WBC Urine WBC Clumps Urine Bacteria Micro UA Comment Urine Culture Comments Double Strand DNA Ab HIV-1 Antibody HIV-2 Antibody HIV (1&2) Ag & Ab Refer 11/29/17 11/29/17 05:05 11:22 WBC RBC Hgb Hct MCV MCH MCHC RDW Plt Count MPV Neut % (Auto) Lymph % (Auto) Elliott % (Auto) Eos % (Auto) Baso % (Auto) Neut # (Auto) Lymph # (Auto) Elliott # (Auto) Eos # (Auto) Baso # (Auto) WBC Differential Differential Comment Puncture Site Patient Temperature O2 Saturation ABG pH ABG pCO2 ABG pO2 ABG HCO3 ABG O2 Content ABG Base Excess ABG Methemoglobin Kevin Test Hemoglobin Carboxyhemoglobin O2 Delivery Device Vent Setting Inspired O2 Critical Value Sodium Potassium Chloride Carbon Dioxide Anion Gap BUN Creatinine Estimated GFR POC Glucose 121 H 116 H Random Glucose Calcium Phosphorus Magnesium Albumin Urine Color Urine Clarity Urine pH Ur Specific [place] Urine Protein Urine Glucose (UA) Urine Ketones Urine Occult Blood Urine Nitrate Urine Bilirubin Urine Urobilinogen Ur Leukocyte Esterase Urine RBC Urine WBC Urine WBC Clumps Urine Bacteria Micro UA Comment Urine Culture Comments Double Strand DNA Ab HIV-1 Antibody HIV-2 Antibody HIV (1&2) Ag & Ab Refer Result Diagrams: 11/29/17 03:50 11/29/17 03:50 Microbiology: Microbiology 11/27/17 13:30 Urine Culture - Final Catheterized Urine Escherichia coli ESBL positive 11/27/17 13:20 Gram Stain - Final Sputum - Endotracheal Sputum Culture - Final Enterobacter cloacae Klebsiella pneumoniae Procedures: 11/19/2017: Right radial arterial line placement 11/19/2017: Endotracheal intubation 11/19/2017: Right subclavian triple-lumen catheter placement 11/19/2017 right IJ dialysis catheter placement Dc`d 11/26/17 . 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 He was never and has no children. He was previously in the [employer]. Spiritual: Tobacco Cloth Reclaimer available. Legal: No living will or healthcare surrogate completed. Ethical issues impacting care: None noted. . Important Contacts: Mother: Angelina Medina healthcare proxy- Currently living with daughter, Kaylie Gama. Sister: Bryan Sharp Sister: Kamille Lucina Brother: Segundo Lehmanloud Brother: Carter Chavez Sister: Kaylie Gama - , C [phone] . Prognosis: His prognosis is poor. He has end-stage heart disease now with an ejection fraction estimated to be less than 10% by [facility] echo. He has suffered a decline in heart function since June 2017 when echocardiogram showed a 50-55% ejection fraction at the time of mitral valve repair. Patient continued to abuse cocaine and possibly other substances and when seen in [place] September 2017 for chest pain was found to have non-ischemic cardiomyopathy with a normal coronary artery circulation and ejection fraction of 20-25%. Echocardiogram at this admission shows cardiogenic shock with an EF less than 10%. He is now requiring inotropic support with milrinone and now has acute kidney injury requiring dialysis for both hyperkalemia and fluid overload. At this time he remains on life support, intubated, but is at elevated risk for continued complications and decline. He would be hospice appropriate if goals were consistent. . Code Status: No Code DNR (Do not reintubate) Plan: PLAN: Legal decision maker: At this time the patient is not capacitated for decision making and it is not certain that he will ever regain capacity. He was never and has no children. His mother would be his proxy decision maker per [place] statutes. She had previously been reported to me as demented and unable to make these decisions, however, her daughter, Kaylie, who is her caregiver disputes that and states that her mother is perfectly capable of making these decisions and wishes to be her son's decision-maker. In conversation with Ms. Medina, herself, she appeared appropriate and capable of decision-making. Goals: Aggressive short of no code. Patient`s mother still wants to give patient a chance to be medically extubated. Discussed challenges that patient is currently facing including apneic events, V-runs, and tachycardic during CPAP trials and infection in sputum and urine. Family leaning towards compassionate withdrawal from life support if patient is not able to be medically extubated. CODE STATUS: DO NOT RESUSCITATE SYMPTOMS: * Altered mental status: Presented with altered mental status, positive for cocaine, hypoglycemic, hyperkalemic, in fulminant heart failure, minimally able to make his needs known. Shortly thereafter he required intubation and sedation. He becomes agitated when sedation is lightened but does not follow commands. Possibly related to end stage heart failure. Questionable HIV diagnosis per his mother. Bedside critical care echo showed severe biventricular dysfunction with EF less than 10%, aortic valve opening only minimally due to low flow. HIV positive. * Edema: Edema is improving on hemodialysis, which is on hold after today's ultrafiltration as patient's renal status is stabilizing and is having some urine output. Given his severe heart failure, borderline hypotension and impaired renal function, this is likely to be an ongoing problem. Last hemodialysis on 11/23. Edema currently managed with Furosemide 40mgIVP daily. Elevate BLE. Palliative care will continue to follow the patient during hospital course as condition evolves, to assist patient/decision-maker with understanding of their medical conditions, weighing benefits/burdens of treatment options, for clarification of goals of treatment. Additionally will assist with any symptoms of palliative concern. . Attestation Attestation: To help prompt me to consider important information that might be impacting today's encounter and assessment, information from prior notes written by myself or my colleagues may have been "brought forward" into today's note. My signature on this note, however, is an attestation that I personally performed the exam, history, and/or decision-making noted today, and, unless otherwise indicated, the interactions with patient, family, and staff as well as the review of records all occurred today. I also attest that the listed assessment and stated plan reflect my best clinical judgment today based on the combination of historical information, prior notes, and today's exam/ interactions. When time spent is documented, it refers only to time spent today by the signer, or if indicated, combined time spent today by collaborating physician/nurse practitioner.
[2017-11-29] MEDS ORDERED: ASP: Documented ESBL, MDR A baumannii or P. aeruginosa OTHER PRN (14:15)
[2017-11-30] MEDS: Insulin NovoLIN Regular Correctional Sugar Inj SQ SCH ×4 (00:02→19:11)
[2017-11-30] MEDS: Midazolam 50 MG/50 ML Inj 50 MG/50 ML BAG IV.CONT PRN ×2 (01:21→20:52)
[2017-11-30] MEDS: Heparin - SQ 10,000 UNITS/ML Vial SQ SCH ×3 (05:17→22:47)
[2017-11-30 06:00] LABS: Baso % (Auto) 0.8 % (0.0-2.0); Eos # (Auto) 0.2 th/mm3 (0.0-0.4); Eos % (Auto) 3.7 % (0.0-4.0); Hematocrit 39.4 % (39.0-51.0); Lymph # (Auto) 0.7 th/mm3 (1.0-4.8); Lymph % (Auto) 15.3 % (9.0-44.0); Mean Corpuscular Hemoglobin 29.5 pg (27.0-34.0); Mean Corpuscular Volume 89.5 fL (80.0-100.0); Mean Platelet Volume 9.9 fL (7.0-11.0); Mono # (Auto) 0.3 th/mm3 (0.0-0.9); Neut # (Auto) 3.4 th/mm3 (1.8-7.7); Neut % (Auto) 74.2 % (16.0-70.0); Platelet Count 157 th/mm3 (150-450); Red Cell Distribution Width 15.1 % (11.6-17.2); White Blood Count 4.6 th/mm3 (4.0-11.0)
[2017-11-30 06:15] LABS: Calcium 7.7 mg/dL (8.5-10.1); Carbon Dioxide 31.8 meq/L (21.0-32.0); Magnesium 1.9 mg/dL (1.5-2.5); Potassium 3.9 meq/L (3.5-5.1)
--- NOTE | 2017-11-30 07:32 | P.PNCC ---
Subjective Subjective Remarks/Hospital Course: 11/19: This is a 57yM with history of cardiomyopathy and an EF 20% who recently underwent mitral valve repair for severe MR. At that time, he had a preserved LVEF. However, he continued to use illicit cocaine, and on subsequent hospital admissions, his EF had fallen to 20%. He represents today with altered mental status, endorsing cocaine use. On further evaluation, he has a potassium of 7, Cr 2.4, AST/ALT 200/72, CK 1302, BNP 4307, co2 14. On my evaluation he is obtunded and agonally breathing, intermittently tachypneic. I performed bedside critical care echo which demonstrated a severe biventricular dysfunction and an EF < 10%. there was spontaneous echo contrast in the LV and the aortic valve appeared to open only minimally due to low-flow. Patient is grossly anasarcic with 3+ edema bilaterally up to the abdomen. he has JVD above the level of the mandible. I emergently intubated the patient (see separate procedure note for details). I emergently placed arterial, central lines, and dialysis catheter. potassium did not improve with medical therapy. we consulted nephrology for emergent HD. I also placed the patient on epinephrine drip for cardiogenic shock. due to the patient's mental status and clinical status, no additional information is available from him. ROS unobtainable. 11/20: Remains sedated, orally intubated on mechanical ventilation. Dialyzed this morning. Remains on pressors. 11/21: Remains sedated, orally intubated on mechanical ventilation. Hypothermic this morning. 11/22: Remains sedated, orally intubated on mechanical ventilation. Dialysis scheduled today. 11/23: Remains sedated, orally intubated on mechanical ventilation. On milrinone. 11/24, 11/25: Remains sedated, orally intubated on mechanical ventilation. Tolerating tube feeds. 11/26: Sedated, orally intubated on mechanical ventilation. Tolerating tube feeds. 11/27 No events overnight. Sedated with Versed and intubated. On Milrinone drip. 11/28 Patient remains intubated and sedated with Versed. On Milrinone drip. T: 99.7 yesterday. Had 7 runs of asymptomatic Vtach overnight. 11/29 Patient is sedated with Versed and intubated. Remains on Milrinone. T: 100.4 last night. Had 1 run (6 beats) asymptomatic Vtach overnight. Gets tachycardic and tachypneic with CPAP trials. 11/30 Patient remains sedated and intubated. T:100.4 last night. Not tolerating CPAP trials. Objective Vital Signs / I&O: Vital Signs 11/29/17 07:30 11/29/17 07:34 11/29/17 08:00 Temperature 98.2 F Pulse Rate 98 H 100 H 109 H Respiratory Rate 19 18 29 H Blood Pressure 120/83 127/83 Pulse Oximetry 100 100 11/29/17 08:30 11/29/17 09:00 11/29/17 09:30 Temperature Pulse Rate 104 H 91 H 101 H Respiratory Rate 16 16 16 Blood Pressure 124/76 111/67 114/81 Pulse Oximetry 100 100 100 11/29/17 10:00 11/29/17 10:30 11/29/17 11:00 Temperature Pulse Rate 107 H 116 H 109 H Respiratory Rate 16 16 16 Blood Pressure 113/77 120/86 111/75 Pulse Oximetry 100 100 99 11/29/17 11:22 11/29/17 11:30 11/29/17 12:00 Temperature 97.7 F Pulse Rate 100 H 125 H 115 H Respiratory Rate 24 19 18 Blood Pressure 153/92 H Pulse Oximetry 100 100 11/29/17 12:01 11/29/17 12:04 11/29/17 12:30 Temperature Pulse Rate 115 H 123 H Respiratory Rate 18 17 20 Blood Pressure 115/74 114/82 Pulse Oximetry 100 100 100 11/29/17 13:00 11/29/17 13:30 11/29/17 14:00 Temperature Pulse Rate 119 H 126 H 127 H Respiratory Rate 22 19 21 Blood Pressure 129/80 129/85 Pulse Oximetry 100 99 99 11/29/17 15:00 11/29/17 15:01 11/29/17 15:30 Temperature Pulse Rate 101 H 100 H 112 H Respiratory Rate 16 16 17 Blood Pressure 100/71 109/76 Pulse Oximetry 99 100 11/29/17 15:31 11/29/17 16:00 11/29/17 16:30 Temperature Pulse Rate 115 H 112 H Respiratory Rate 16 20 20 Blood Pressure 110/81 129/79 Pulse Oximetry 100 100 100 11/29/17 17:00 11/29/17 17:30 11/29/17 18:00 Temperature Pulse Rate 116 H 117 H 124 H Respiratory Rate 18 20 16 Blood Pressure 113/87 111/87 126/83 Pulse Oximetry 100 100 100 11/29/17 20:00 11/29/17 21:45 11/30/17 00:00 Temperature 98.2 F 98.1 F Pulse Rate 123 H 100 H 118 H Respiratory Rate 20 21 16 Blood Pressure 110/86 116/75 Pulse Oximetry 100 100 100 11/30/17 01:24 11/30/17 01:25 11/30/17 04:00 Temperature 98.4 F Pulse Rate 100 H 110 H Respiratory Rate 16 16 16 Blood Pressure 121/61 Pulse Oximetry 100 100 11/30/17 05:40 11/30/17 05:41 Temperature Pulse Rate 102 H Respiratory Rate 17 17 Blood Pressure Pulse Oximetry 100 Intake & Output 11/29/17 11/30/17 11/30/17 18:59 06:59 18:59 Intake Total 1709 / 1709 2956 / 2956 Output Total 1450 / 1450 925 / 925 Balance 259 / 259 2030 / 203 Weight 65 kg Intake: IV 1043 / 1043 150 / 150 Versed Inj 50 mg In 50 ml @ 2 50 / 50 50 / 50 MG/HR 2 mls/hr IV.CONT TITRATE PRN Rx#:[id number] Primacor Inj 20 MG In NS Inj 80 33 / 33 ML @ 0.5 MCG/KG/MIN 10.5 mls/ hr IV.CONT .Q9H32M [facility] Rx#: [id number] D10W Inj 1,000 ML @ 30 mls/hr 500 / 500 IV.SIG .Q24H [facility] Rx#:[id number] Merrem Inj 1,000 MG In NS Inj 100 / 100 100 ML @ 200 mls/hr IV.SIG ONCE ONE Rx#:[id number] Merrem Inj 1,000 MG In NS Inj 100 / 100 100 / 100 100 ML @ 200 mls/hr IV.SIG Q8H [facility] Rx#:[id number] Sodium Phosphate Inj 30 MMOL In 260 / 260 NS Inj 250 ML @ 42 mls/hr IV. SIG UNSCH PRN Rx#:[id number] Oral 0 / 0 Tube Feeding 546 / 546 520 / 520 Tube Irrigant 90 / 90 Water Bolus Amount 120 / 120 60 / 60 Other 2135 / 2135 Output: Urine 1450 / 1450 600 / 600 Stool 0 / 0 Hemodialysis Amount 0 / 0 Urine Amount (Catheter) 325 / 325 Condom 325 / 325 Other: Date of Last Bowel Movement 11/27/17 # Bowel Movements 2 1 # Incontinent Bowel Movements 0 Result Diagrams: 11/30/17 03:30 11/30/17 03:30 Other Results: Laboratory Results - last 12 hr 11/29/17 11/30/17 11/30/17 23:50 03:30 03:30 WBC 4.6 RBC 4.40 L Hgb 13.0 Hct 39.4 MCV 89.5 MCH 29.5 MCHC 33.0 RDW 15.1 Plt Count 157 MPV 9.9 Neut % (Auto) 74.2 H Lymph % (Auto) 15.3 [place] % (Auto) 6.0 Eos % (Auto) 3.7 Baso % (Auto) 0.8 Neut # (Auto) 3.4 Lymph # (Auto) 0.7 L [place] # (Auto) 0.3 Eos # (Auto) 0.2 Baso # (Auto) 0.0 WBC Differential . Differential Comment Auto diff final Sodium 140 Potassium 3.9 Chloride 103 Carbon Dioxide 31.8 Anion Gap 5 BUN 30 H Creatinine 1.09 Estimated GFR 85 L POC Glucose 109 Random Glucose 99 Calcium 7.7 L Phosphorus 2.0 L Magnesium 1.9 Imaging: Abdomen/Pelvis CT 11/19/17 03:55 CONCLUSION: 1. Limited, suboptimal examination performed without intravenous or oral contrast. The study is degraded by motion artifact as well. 2. Abnormal bowel gas pattern with multiple small air-fluid levels. The bowel is suboptimally visualized and evaluated secondary to the lack of the intravenous and oral contrast as well as diffuse ascites. This may represent a gastroenteritis and/or ileus. Obstruction is less likely. 3. Diffuse ascites throughout the abdomen and pelvis. 4. Moderate size right effusion which is increased from the prior study. There is a new small left effusion. 5. Moderate cardiomegaly. 6. No definite gallstones identified. Head CT 11/19/17 03:55 CONCLUSION: 1. No acute hemorrhage or mass effect. 2. Mild motion and streak artifact. . Chest X-Ray 11/27/17 08:49 CONCLUSION: 1. Mild to moderate pulmonary vascular congestion. 2. Cardiomegaly. 3. Tiny bilateral pleural effusions. 4. Multiple tubes and lines are stable. Objective Remarks: GENERAL: Patient is 57 yo intubated and sedated SKIN: Warm and dry. HEAD: Normocephalic. EYES: No scleral icterus. No injection or drainage. NECK: Supple, trachea midline. No JVD or lymphadenopathy. CARDIOVASCULAR: Regular rate and rhythm without murmurs, gallops, or rubs. RESPIRATORY: Breath sounds equal bilaterally. No accessory muscle use. GASTROINTESTINAL: Abdomen soft, non-tender, nondistended. MUSCULOSKELETAL: No cyanosis, or edema. Neuro: Sedated Assessment and Plan - Assessment and Plan Plan: Plan by systems: Neurologic: Acute toxic encephalopathy Acute cocaine intoxication Acute metabolic encephalopathy secondary to shock On Versed drip for sedation. Daily sedation vacation. Monitor neuro status. Respiratory: Acute hypoxic and hypercarbic respiratory failure Acute severe pulmonary edema Probable Crack Lung Continue with vent support keep sats >92% On PRVC RR 16, TV550, IT:1.1, PEEP:5, FIO2: 30% Bronchodilators. SBT daily as maria elena. Patient is not tolerating CPAP trials- gets apneic, tachycardic and tachypneic. If can not be medically extubated family is leaning toward comfort care next week. Cardiovascular: s/p Cardiogenic shock Acute severe systolic congestive heart failure exacerbation Acute type II non-ST elevation myocardial infarction secondary to demand ischemia known prior EF 20% (09/2017), Echo 11/27: EF <20%, mod- severe MR, PAP 53.9mmHg likely secondary to chronic cocaine use superimposed on cardiomyopathy. Monitor HR and BP keep MAP>65mmHg. on Coreg 3.125mg BID. add Lisinopril 5mg daily On Milrinone drip. Lactic acid resolved 1.1 on 11/20 Renal: Acute kidney injury- resolved Monitor renal function, I/O's, electrolytes replacement per protocol. Will need Phos replacement today Vascath d/c 11/26. Continue Lasix 40mg IV daily Renal is following. FEN/GI: Severe acute protein calorie malnutrition On tube feeds- Glucerna 1.5 with goal rate 45ml/hr Heme/ID: Daily CBC Hep C reactive, HIV reactive on screening test Continue Merrem Monitor for signs of infections ( Fever, WBC). urine cxs: ESBL E.coli 11/27 Sputum cx: Enterobacter, Kleb ID is following Endocrine: Acute hypoglycemia, severe D10W at 30 miles an hour SSI with accuchecks Prophylaxis: GI Prophylaxis Pepcid IV DVT Prophylaxis -- SCDs Subcu heparin Lines: 11/19 right brachial arterial line 11/19 right subclavian 7 Malay triple-lumen catheter 11/19 right IJ 14 Malay 20 cm dialysis catheter d/c 11/26 11/19 [place] Prognosis appears poor. Palliative care following to assist with deciding goals of therapy. Family is leaning toward withdrawal life support if he can not be medically extubated. Level 3
[2017-11-30] MEDS: Lisinopril 5 MG Tablet PO SCH (09:00)
[2017-11-30] MEDS: Famotidine PF Inj 20 MG/2 ML Vial IV.PUSH SCH ×2 (09:00→20:51)
[2017-11-30] MEDS: Dextrose 10% in Water Inj 1,000 ML IV.SIG SCH (10:00)
[2017-11-30] MEDS: Senna/Docusate Sodium 8.6/50 MG Tablet PO SCH (12:14)
--- NOTE | 2017-11-30 16:15 | P.PNID ---
Subjective Remarks: ANABELL Steiner for Dr Franks chart was reviwed Patient is a 57-year-old male, brought into the hospital after he was noted by his friend to have some altered mental status. He was noted to have a blood sugar of 50 in the ambulance and he received some dextrose with some improvement in his mentation. He was able to give some history to the ED MD, and admitted that he has been using cocaine, but he has denied any chest pain, shortness of breath. In the emergency room he was found to have an elevated creatinine of 2.4, potassium of 7, elevated LFTs and CPK, as well as B natruretic peptide of 4307. He was acidotic. His mental status continued to deteriorate in the emergency room, and he developed progressive obtundation, and required emergent intubation. He also became hypotensive, and he had an echo done at bedside with severe biventricular dysfunction with an EF of less than 10%. He was placed on epinephrine for cardiogenic shock. Since that time patient has remained intubated. He had emergent hemodialysis, and his electrolytes improved, as well as his creatinine. He is off HD now. He has moderate clear secretions in his ET. He has not been tolerating CPAP trials. Palliative medicine is also following patient, and he has DNR status. Patient has history of cardiomyopathy with a prior EF of 20%, and had undergone mitral valve repair back in June 2017. During his mitral valve surgery he had a preserved LV function, but post operative, he apparently continued to use cocaine and had subsequent hospital admission with documentation of a decrease in his EF to about 20%. On this admission patient had HIV testing, and the results came back positive. Over the last 2448 hrs., his temperature had increased. He had cultures done, and his sputum culture is growing Enterobacter and Klebsiella, and his urine culture has E. coli ESBL positive. Patient currently is afebrile. His hemodynamics are stable. Monitor shows sinus rhythm, with frequent PACs. His chest x-ray has evidence of pulmonary vascular congestion. Infectious disease consultation has been requested to assist with management of his multiple infections. reviewed with RN pt remains on vent no fever good UOP on milrinone no fever for 36-48 hrs ESBL E.coli in the urine Sputum with Enterobacter and Kleb Antibiotics: meropenem Past Medical History: cocaine Allergies/Adverse Reactions: Allergies No Known Allergies Allergy (Unverified 11/19/17 04:45) Objective Vital Signs 11/29/17 15:30 11/29/17 15:31 11/29/17 16:00 Temperature Pulse Rate 112 H 115 H Respiratory Rate 17 16 20 Blood Pressure 109/76 110/81 Pulse Oximetry 100 100 100 11/29/17 16:30 11/29/17 17:00 11/29/17 17:30 Temperature Pulse Rate 112 H 116 H 117 H Respiratory Rate 20 18 20 Blood Pressure 129/79 113/87 111/87 Pulse Oximetry 100 100 100 11/29/17 18:00 11/29/17 20:00 11/29/17 21:45 Temperature 98.2 F Pulse Rate 124 H 123 H 100 H Respiratory Rate 16 20 21 Blood Pressure 126/83 110/86 Pulse Oximetry 100 100 100 11/30/17 00:00 11/30/17 01:24 11/30/17 01:25 Temperature 98.1 F Pulse Rate 118 H 100 H Respiratory Rate 16 16 16 Blood Pressure 116/75 Pulse Oximetry 100 100 11/30/17 04:00 11/30/17 05:40 11/30/17 05:41 Temperature 98.4 F Pulse Rate 110 H 102 H Respiratory Rate 16 17 17 Blood Pressure 121/61 Pulse Oximetry 100 100 11/30/17 08:54 11/30/17 09:01 11/30/17 12:39 Temperature Pulse Rate 114 H Respiratory Rate 16 16 17 Blood Pressure Pulse Oximetry 99 100 Intake & Output 11/29/17 11/30/17 11/30/17 18:59 06:59 18:59 Intake Total 1709 / 1709 2956 / 2956 Output Total 1450 / 1450 925 / 925 Balance 259 / 259 2030 / 203 Weight 65 kg Intake: IV 1043 / 1043 150 / 150 Versed Inj 50 mg In 50 ml @ 2 50 / 50 50 / 50 MG/HR 2 mls/hr IV.CONT TITRATE PRN Rx#:[id number] Primacor Inj 20 MG In NS Inj 80 33 / 33 ML @ 0.5 MCG/KG/MIN 10.5 mls/ hr IV.CONT .Q9H32M [facility] Rx#: [id number] D10W Inj 1,000 ML @ 30 mls/hr 500 / 500 IV.SIG .Q24H [facility] Rx#:[id number] Merrem Inj 1,000 MG In NS Inj 100 / 100 100 ML @ 200 mls/hr IV.SIG ONCE ONE Rx#:[id number] Merrem Inj 1,000 MG In NS Inj 100 / 100 100 / 100 100 ML @ 200 mls/hr IV.SIG Q8H [facility] Rx#:[id number] Sodium Phosphate Inj 30 MMOL In 260 / 260 NS Inj 250 ML @ 42 mls/hr IV. SIG UNSCH PRN Rx#:[id number] Oral 0 / 0 Tube Feeding 546 / 546 520 / 520 Tube Irrigant 90 / 90 Water Bolus Amount 120 / 120 60 / 60 Other 2136 / 2136 Output: Urine 1450 / 1450 600 / 600 Stool 0 / 0 Hemodialysis Amount 0 / 0 Urine Amount (Catheter) 325 / 325 Condom 325 / 325 Other: Date of Last Bowel Movement 11/27/17 11/27/17 # Bowel Movements 2 1 # Incontinent Bowel Movements 0 11/29/17 12:00 Blood - Peripheral Aerobic Blood Culture - Preliminary No growth in 1 day 11/29/17 12:00 Blood - Peripheral Anaerobic Blood Culture - Preliminary No growth in 1 day 11/29/17 11:55 Blood - Peripheral Aerobic Blood Culture - Preliminary No growth in 1 day 11/29/17 11:55 Blood - Peripheral Anaerobic Blood Culture - Preliminary No growth in 1 day 11/27/17 13:30 Catheterized Urine Urine Culture - Final Escherichia coli ESBL positive 11/27/17 13:20 Sputum - Endotracheal Gram Stain - Final 11/27/17 13:20 Sputum - Endotracheal Sputum Culture - Final Enterobacter cloacae Klebsiella pneumoniae Lab - Hematology Results 11/29/17 11/30/17 03:50 03:30 WBC 4.7 4.6 RBC 4.21 L 4.40 L Hgb 12.6 L 13.0 Hct 37.5 L 39.4 MCV 89.0 89.5 MCH 30.0 29.5 MCHC 33.7 33.0 RDW 15.1 15.1 Plt Count 160 157 MPV 9.2 9.9 Neut % (Auto) 81.2 H 74.2 H Lymph % (Auto) 9.5 15.3 [place] % (Auto) 5.5 6.0 Eos % (Auto) 3.1 3.7 Baso % (Auto) 0.7 0.8 Neut # (Auto) 3.8 3.4 Lymph # (Auto) 0.4 L 0.7 L [place] # (Auto) 0.3 0.3 Eos # (Auto) 0.1 0.2 Baso # (Auto) 0.0 0.0 WBC Differential . . Differential Comment Auto diff final Auto diff final Lab - Chemistry Results 11/28/17 11/28/17 11/29/17 17:05 22:53 03:50 Sodium 139 Potassium 4.3 D Chloride 104 Carbon Dioxide 31.3 Anion Gap 4 L BUN 34 H Creatinine 1.17 Estimated GFR 78 L POC Glucose 116 H 102 Random Glucose 111 H Calcium 8.0 L Phosphorus 2.0 L Magnesium 1.9 11/29/17 11/29/17 11/29/17 05:05 11:22 17:09 Sodium Potassium Chloride Carbon Dioxide Anion Gap BUN Creatinine Estimated GFR POC Glucose 121 H 116 H 96 Random Glucose Calcium Phosphorus Magnesium 11/29/17 11/30/17 23:50 03:30 Sodium 140 Potassium 3.9 Chloride 103 Carbon Dioxide 31.8 Anion Gap 5 BUN 30 H Creatinine 1.09 Estimated GFR 85 L POC Glucose 109 Random Glucose 99 Calcium 7.7 L Phosphorus 2.0 L Magnesium 1.9 Imaging: ITS Impressions Abdomen/Pelvis CT 11/19/17 03:55 CONCLUSION: 1. Limited, suboptimal examination performed without intravenous or oral contrast. The study is degraded by motion artifact as well. 2. Abnormal bowel gas pattern with multiple small air-fluid levels. The bowel is suboptimally visualized and evaluated secondary to the lack of the intravenous and oral contrast as well as diffuse ascites. This may represent a gastroenteritis and/or ileus. Obstruction is less likely. 3. Diffuse ascites throughout the abdomen and pelvis. 4. Moderate size right effusion which is increased from the prior study. There is a new small left effusion. 5. Moderate cardiomegaly. 6. No definite gallstones identified. Head CT 11/19/17 03:55 CONCLUSION: 1. No acute hemorrhage or mass effect. 2. Mild motion and streak artifact. . Chest X-Ray 11/27/17 08:49 CONCLUSION: 1. Mild to moderate pulmonary vascular congestion. 2. Cardiomegaly. 3. Tiny bilateral pleural effusions. 4. Multiple tubes and lines are stable. Physical Exam: GENERAL: NAD; sedated on vent SKIN: Warm and dry. HEAD: Atraumatic. Normocephalic. EYES: Pupils equal and round. No scleral icterus. No injection or drainage. ENT: No nasal bleeding or discharge. Mucous membranes pink and moist. NECK: Trachea midline. No JVD. CARDIOVASCULAR: Regular rate and rhythm. RESPIRATORY: No accessory muscle use. Clear to auscultation. Breath sounds equal bilaterally. GASTROINTESTINAL: Abdomen soft, non-tender, nondistended. Hepatic and splenic margins not palpable. MUSCULOSKELETAL: Extremities without clubbing, cyanosis, or edema. No obvious deformities. : condom cath in place with clear urine NEUROLOGICAL: sedated. Intubated PSYCHIATRIC: unable to assess Assessment and Plan - Plan Impression Fevers since 11/28, has been on vent since 11/19 - has HCAP/VAP, C/S with Enterobacter and Klebsiella - UTI, UC with E coli ESBL+ Respiratory failure, CHF, PNA Cardiomyopathy, EF <10% Prior MV repair Active cocaine use Newly Dx HIV S/P renal failure, had 2 HD, renal function improved Recommendation Continue Meropenem fu repeat BC with next fever Get CD4 counts baseline for his new HIV Follow C/S Monitor temps Monitor progress
[2017-11-30] MEDS: Morphine Inj 4 MG/ML Vial IV.PUSH PRN (22:48)
[2017-12-01] MEDS: Dextrose 10% in Water Inj 1,000 ML IV.SIG SCH ×2 (02:26→02:27)
[2017-12-01] MEDS: Insulin NovoLIN Regular Correctional Sugar Inj SQ SCH ×3 (04:28→18:42)
[2017-12-01] MEDS: Senna/Docusate Sodium 8.6/50 MG Tablet PO SCH ×3 (04:28→21:05)
[2017-12-01] MEDS: Midazolam 50 MG/50 ML Inj 50 MG/50 ML BAG IV.CONT PRN ×3 (04:29→22:46)
[2017-12-01 05:08] LABS: Baso % (Auto) 0.4 % (0.0-2.0); Eos # (Auto) 0.1 th/mm3 (0.0-0.4); Eos % (Auto) 3.4 % (0.0-4.0); Hematocrit 40.3 % (39.0-51.0); Hemoglobin 13.1 gm/dL (13.0-17.0); Lymph # (Auto) 0.6 th/mm3 (1.0-4.8); Lymph % (Auto) 14.9 % (9.0-44.0); Mean Corpuscular HGB Conc 32.5 % (32.0-36.0); Mean Corpuscular Hemoglobin 29.2 pg (27.0-34.0); Mean Corpuscular Volume 89.8 fL (80.0-100.0); Mean Platelet Volume 9.4 fL (7.0-11.0); Mono # (Auto) 0.3 th/mm3 (0.0-0.9); Mono % (Auto) 7.6 % (0.0-8.0); Neut # (Auto) 3.2 th/mm3 (1.8-7.7); Neut % (Auto) 73.7 % (16.0-70.0); Platelet Count 170 th/mm3 (150-450); Red Blood Count 4.49 mil/mm3 (4.50-5.90); Red Cell Distribution Width 15.1 % (11.6-17.2); White Blood Count 4.3 th/mm3 (4.0-11.0)
[2017-12-01 05:40] LABS: Anion Gap 5 meq/L (5-15); Blood Urea Nitrogen 29 mg/dL (7-18); Calcium 7.6 mg/dL (8.5-10.1); Carbon Dioxide 32.2 meq/L (21.0-32.0); Chloride 103 meq/L (98-107); Glomerular Filtration Rate Greater Than 89 mL/min (>89); Glucose,Random 103 mg/dL (74-106); Magnesium 1.9 mg/dL (1.5-2.5); Phosphorus 1.9 mg/dL (2.5-4.9); Potassium 3.7 meq/L (3.5-5.1); Sodium 140 meq/L (136-145)
[2017-12-01] MEDS: Heparin - SQ 10,000 UNITS/ML Vial SQ SCH ×3 (06:01→22:45)
--- NOTE | 2017-12-01 08:08 | P.PNCC ---
Subjective Subjective Remarks/Hospital Course: 11/19: This is a 57yM with history of cardiomyopathy and an EF 20% who recently underwent mitral valve repair for severe MR. At that time, he had a preserved LVEF. However, he continued to use illicit cocaine, and on subsequent hospital admissions, his EF had fallen to 20%. He represents today with altered mental status, endorsing cocaine use. On further evaluation, he has a potassium of 7, Cr 2.4, AST/ALT 200/72, CK 1302, BNP 4307, co2 14. On my evaluation he is obtunded and agonally breathing, intermittently tachypneic. I performed bedside critical care echo which demonstrated a severe biventricular dysfunction and an EF < 10%. there was spontaneous echo contrast in the LV and the aortic valve appeared to open only minimally due to low-flow. Patient is grossly anasarcic with 3+ edema bilaterally up to the abdomen. he has JVD above the level of the mandible. I emergently intubated the patient (see separate procedure note for details). I emergently placed arterial, central lines, and dialysis catheter. potassium did not improve with medical therapy. we consulted nephrology for emergent HD. I also placed the patient on epinephrine drip for cardiogenic shock. due to the patient's mental status and clinical status, no additional information is available from him. ROS unobtainable. 11/20: Remains sedated, orally intubated on mechanical ventilation. Dialyzed this morning. Remains on pressors. 11/21: Remains sedated, orally intubated on mechanical ventilation. Hypothermic this morning. 11/22: Remains sedated, orally intubated on mechanical ventilation. Dialysis scheduled today. 11/23: Remains sedated, orally intubated on mechanical ventilation. On milrinone. 11/24, 11/25: Remains sedated, orally intubated on mechanical ventilation. Tolerating tube feeds. 11/26: Sedated, orally intubated on mechanical ventilation. Tolerating tube feeds. 11/27 No events overnight. Sedated with Versed and intubated. On Milrinone drip. 11/28 Patient remains intubated and sedated with Versed. On Milrinone drip. T: 99.7 yesterday. Had 7 runs of asymptomatic Vtach overnight. 11/29 Patient is sedated with Versed and intubated. Remains on Milrinone. T: 100.4 last night. Had 1 run (6 beats) asymptomatic Vtach overnight. Gets tachycardic and tachypneic with CPAP trials. 11/30 Patient remains sedated and intubated. T:100.4 last night. Not tolerating CPAP trials. 12/01 No events overnight. T:100.0 last night. Sedated with versed and on Milrinone. Objective Vital Signs / I&O: Vital Signs 11/30/17 08:31 11/30/17 08:54 11/30/17 09:00 Temperature Pulse Rate 123 H 140 H Respiratory Rate 20 16 11 L Blood Pressure 125/90 150/119 H Pulse Oximetry 100 99 100 11/30/17 09:01 11/30/17 09:29 11/30/17 09:30 Temperature Pulse Rate 114 H 112 H 112 H Respiratory Rate 16 16 16 Blood Pressure 109/71 104/72 Pulse Oximetry 100 99 11/30/17 10:00 11/30/17 10:30 11/30/17 11:00 Temperature Pulse Rate 128 H 118 H 117 H Respiratory Rate 21 20 18 Blood Pressure 132/88 120/71 114/70 Pulse Oximetry 100 100 100 11/30/17 11:30 11/30/17 12:00 11/30/17 12:37 Temperature Pulse Rate 118 H 128 H 110 H Respiratory Rate 18 16 16 Blood Pressure 116/76 127/81 94/57 L Pulse Oximetry 99 97 98 11/30/17 12:39 11/30/17 13:00 11/30/17 13:31 Temperature Pulse Rate 115 H 116 H Respiratory Rate 17 20 19 Blood Pressure 103/70 125/79 Pulse Oximetry 100 100 100 11/30/17 14:00 11/30/17 14:30 11/30/17 15:00 Temperature Pulse Rate 110 H 111 H 133 H Respiratory Rate 17 18 18 Blood Pressure 118/81 116/77 121/91 H Pulse Oximetry 99 100 100 11/30/17 15:30 11/30/17 16:00 11/30/17 16:10 Temperature Pulse Rate 113 H 113 H Respiratory Rate 17 18 16 Blood Pressure 122/80 121/84 Pulse Oximetry 100 100 100 11/30/17 16:30 11/30/17 17:00 11/30/17 17:30 Temperature Pulse Rate 105 H 100 H 105 H Respiratory Rate 16 16 16 Blood Pressure 102/70 96/67 L 107/72 Pulse Oximetry 99 100 100 11/30/17 18:00 11/30/17 18:30 11/30/17 19:00 Temperature Pulse Rate 103 H 107 H 120 H Respiratory Rate 16 21 20 Blood Pressure 105/70 97/69 L Pulse Oximetry 100 100 100 11/30/17 19:05 11/30/17 19:30 11/30/17 20:00 Temperature 100.0 F H Pulse Rate 124 H 108 H 116 H Respiratory Rate 18 16 22 Blood Pressure 135/96 H 119/73 119/81 Pulse Oximetry 100 99 100 11/30/17 20:30 11/30/17 20:45 11/30/17 21:00 Temperature Pulse Rate 116 H 116 H 122 H Respiratory Rate 19 18 16 Blood Pressure 121/84 127/84 Pulse Oximetry 100 100 100 11/30/17 21:30 11/30/17 22:00 11/30/17 22:30 Temperature Pulse Rate 124 H 122 H 128 H Respiratory Rate 16 23 21 Blood Pressure 119/82 123/80 125/80 Pulse Oximetry 100 99 100 11/30/17 23:00 11/30/17 23:30 12/01/17 00:00 Temperature Pulse Rate 119 H 113 H 112 H Respiratory Rate 20 19 16 Blood Pressure 116/79 124/80 126/83 Pulse Oximetry 99 100 100 12/01/17 00:30 12/01/17 00:46 12/01/17 01:00 Temperature Pulse Rate 104 H 100 H 103 H Respiratory Rate 16 16 16 Blood Pressure 131/77 122/78 Pulse Oximetry 100 100 99 12/01/17 01:30 12/01/17 02:00 12/01/17 02:30 Temperature Pulse Rate 98 H 109 H 117 H Respiratory Rate 16 21 18 Blood Pressure 125/61 129/75 138/98 H Pulse Oximetry 97 100 100 12/01/17 03:00 12/01/17 03:30 12/01/17 04:00 Temperature Pulse Rate 119 H 104 H 114 H Respiratory Rate 16 16 22 Blood Pressure 118/83 106/70 116/81 Pulse Oximetry 99 99 100 12/01/17 04:30 12/01/17 05:00 12/01/17 05:30 Temperature Pulse Rate 119 H 114 H 115 H Respiratory Rate 20 19 18 Blood Pressure 123/90 121/87 117/81 Pulse Oximetry 100 100 100 12/01/17 06:00 Temperature Pulse Rate 109 H Respiratory Rate 19 Blood Pressure 119/82 Pulse Oximetry 99 Intake & Output 11/30/17 12/01/17 12/01/17 18:59 06:59 18:59 Intake Total 1816.8 / 1816.8 993.8 / 993.8 Output Total 1250 / 1250 475 / 475 Balance 566.8 / 566.8 518.8 / 518.8 Weight 63 kg Intake: IV 1218.8 / 1218.8 518.8 / 518.8 Versed Inj 50 mg In 50 ml @ 2 18.8 / 18.8 18.8 / 18.8 MG/HR 2 mls/hr IV.CONT TITRATE PRN Rx#:[id number] D10W Inj 1,000 ML @ 30 mls/hr 1000 / 1000 500 / 500 IV.SIG .Q24H RUDDY Rx#:[id number] Merrem Inj 1,000 MG In NS Inj 200 / 200 100 ML @ 200 mls/hr IV.SIG Q8H RUDDY Rx#:[id number] Tube Feeding 598 / 598 475 / 475 Output: Urine Amount (Catheter) 1250 / 1250 475 / 475 Condom 1250 / 1250 475 / 475 Other: Date of Last Bowel Movement 11/27/17 12/01/17 # Bowel Movements 3 1 Result Diagrams: 12/01/17 04:42 12/01/17 04:42 Other Results: Laboratory Results - last 12 hr 11/29/17 12/01/17 12/01/17 11:55 04:42 04:42 WBC 4.3 RBC 4.49 L Hgb 13.1 Hct 40.3 MCV 89.8 MCH 29.2 MCHC 32.5 RDW 15.1 Plt Count 170 MPV 9.4 Neut % (Auto) 73.7 H Lymph % (Auto) 14.9 [place] % (Auto) 7.6 Eos % (Auto) 3.4 Baso % (Auto) 0.4 Neut # (Auto) 3.2 Lymph # (Auto) 0.6 L [place] # (Auto) 0.3 Eos # (Auto) 0.1 Baso # (Auto) 0.0 WBC Differential . Differential Comment Auto diff final Sodium 140 Potassium 3.7 Chloride 103 Carbon Dioxide 32.2 H Anion Gap 5 BUN 29 H Creatinine 0.96 Estimated GFR Greater than 89 Random Glucose 103 Calcium 7.6 L Phosphorus 1.9 L Magnesium 1.9 Absolute Lymphocytes 647 L % CD3 Cells 84 Absolute CD3 Count 545 L % CD3-/CD16+/CD56+ 6 Abs CD3-/CD16+/CD56+ 38 L % CD4 Cells 9 L Absolute CD4 Count 60 L T-Help/Suppress Ratio 0.10 L % CD8 Cells 75 H Absolute CD8 Count 504 % CD19 Cells 9 Absolute CD19 Count 53 L Imaging: Abdomen/Pelvis CT 11/19/17 03:55 CONCLUSION: 1. Limited, suboptimal examination performed without intravenous or oral contrast. The study is degraded by motion artifact as well. 2. Abnormal bowel gas pattern with multiple small air-fluid levels. The bowel is suboptimally visualized and evaluated secondary to the lack of the intravenous and oral contrast as well as diffuse ascites. This may represent a gastroenteritis and/or ileus. Obstruction is less likely. 3. Diffuse ascites throughout the abdomen and pelvis. 4. Moderate size right effusion which is increased from the prior study. There is a new small left effusion. 5. Moderate cardiomegaly. 6. No definite gallstones identified. Head CT 11/19/17 03:55 CONCLUSION: 1. No acute hemorrhage or mass effect. 2. Mild motion and streak artifact. . Chest X-Ray 11/27/17 08:49 CONCLUSION: 1. Mild to moderate pulmonary vascular congestion. 2. Cardiomegaly. 3. Tiny bilateral pleural effusions. 4. Multiple tubes and lines are stable. Objective Remarks: GENERAL: Patient is 57 yo intubated and sedated SKIN: Warm and dry. HEAD: Normocephalic. EYES: No scleral icterus. No injection or drainage. NECK: Supple, trachea midline. No JVD or lymphadenopathy. CARDIOVASCULAR: Regular rate and rhythm without murmurs, gallops, or rubs. RESPIRATORY: Breath sounds equal bilaterally. No accessory muscle use. GASTROINTESTINAL: Abdomen soft, non-tender, nondistended. MUSCULOSKELETAL: No cyanosis, or edema. Neuro: Sedated Assessment and Plan - Assessment and Plan Plan: Plan by systems: Neurologic: Acute toxic encephalopathy Acute cocaine intoxication Acute metabolic encephalopathy secondary to shock On Versed drip for sedation. Daily sedation vacation. Monitor neuro status. Respiratory: Acute hypoxic and hypercarbic respiratory failure Acute severe pulmonary edema Probable Crack Lung Continue with vent support keep sats >92% On PRVC RR 16, TV550, IT:1.1, PEEP:5, FIO2: 30% Bronchodilators. SBT daily as maria elena. Patient is not tolerating CPAP trials- gets apneic, tachycardic and tachypneic. If can not be medically extubated family is leaning toward comfort care next week. Cardiovascular: s/p Cardiogenic shock Acute severe systolic congestive heart failure exacerbation Acute type II non-ST elevation myocardial infarction secondary to demand ischemia known prior EF 20% (09/2017), Echo 11/27: EF <20%, mod- severe MR, PAP 53.9mmHg likely secondary to chronic cocaine use superimposed on cardiomyopathy. Monitor HR and BP keep MAP>65mmHg. on Coreg 3.125mg BID. add Lisinopril 5mg daily On Milrinone drip. Lactic acid resolved 1.1 on 11/20 Renal: Acute kidney injury- resolved Monitor renal function, I/O's, electrolytes replacement per protocol. Will need Phos replacement today Vascath d/c 11/26. Continue Lasix 40mg IV daily Renal is following. FEN/GI: Severe acute protein calorie malnutrition On tube feeds- Glucerna 1.5 with goal rate 45ml/hr Heme/ID: Daily CBC Hep C reactive, HIV reactive on screening test. CD4 count: 60 Continue Merrem Monitor for signs of infections ( Fever, WBC). urine cxs: ESBL E.coli 11/27 Sputum cx: Enterobacter, Kleb ID is following Endocrine: Acute hypoglycemia, severe D10W at 30 miles an hour SSI with accuchecks Prophylaxis: GI Prophylaxis Pepcid IV DVT Prophylaxis -- SCDs Subcu heparin Lines: 11/19 right brachial arterial line 11/19 right subclavian 7 [place] triple-lumen catheter 11/19 right IJ 14 [place] 20 cm dialysis catheter d/c 11/26 11/19 [place] Prognosis appears poor. Palliative care following to assist with deciding goals of therapy. Family is leaning toward withdrawal life support if he can not be medically extubated. Level 3
[2017-12-01] MEDS: Famotidine PF Inj 20 MG/2 ML Vial IV.PUSH SCH ×2 (08:26→21:05)
[2017-12-01] MEDS: Lisinopril 5 MG Tablet PO SCH (08:27)
[2017-12-01] MEDS: Propofol 1000 mg/100 ml Inj 1,000 MG/100 ML BOTTLE IV.CONT PRN (15:00)
[2017-12-02] MEDS: Insulin NovoLIN Regular Correctional Sugar Inj SQ SCH ×4 (00:42→17:18)
[2017-12-02] MEDS: Midazolam 50 MG/50 ML Inj 50 MG/50 ML BAG IV.CONT PRN ×4 (02:30→20:26)
[2017-12-02] MEDS: Heparin - SQ 10,000 UNITS/ML Vial SQ SCH ×2 (05:11→14:05)
[2017-12-02 05:12] LABS: Baso % (Auto) 0.9 % (0.0-2.0); Eos # (Auto) 0.1 th/mm3 (0.0-0.4); Eos % (Auto) 1.7 % (0.0-4.0); Hematocrit 41.4 % (39.0-51.0); Hemoglobin 13.6 gm/dL (13.0-17.0); Lymph # (Auto) 0.5 th/mm3 (1.0-4.8); Mean Corpuscular HGB Conc 32.8 % (32.0-36.0); Mean Corpuscular Hemoglobin 29.4 pg (27.0-34.0); Mean Corpuscular Volume 89.4 fL (80.0-100.0); Mean Platelet Volume 9.6 fL (7.0-11.0); Mono # (Auto) 0.3 th/mm3 (0.0-0.9); Mono % (Auto) 7.5 % (0.0-8.0); Neut # (Auto) 3.2 th/mm3 (1.8-7.7); Neut % (Auto) 76.9 % (16.0-70.0); Platelet Count 180 th/mm3 (150-450); Red Blood Count 4.63 mil/mm3 (4.50-5.90); Red Cell Distribution Width 14.6 % (11.6-17.2); White Blood Count 4.2 th/mm3 (4.0-11.0)
[2017-12-02 05:45] LABS: Calcium 8.2 mg/dL (8.5-10.1); Carbon Dioxide 31.5 meq/L (21.0-32.0); Magnesium 1.8 mg/dL (1.5-2.5); Phosphorus 2.2 mg/dL (2.5-4.9); Potassium 3.6 meq/L (3.5-5.1)
[2017-12-02] MEDS: Propofol 1000 mg/100 ml Inj 1,000 MG/100 ML BOTTLE IV.CONT PRN (06:45)
--- NOTE | 2017-12-02 08:19 | P.PNCC ---
Subjective Subjective Remarks/Hospital Course: 11/19: This is a 57yM with history of cardiomyopathy and an EF 20% who recently underwent mitral valve repair for severe MR. At that time, he had a preserved LVEF. However, he continued to use illicit cocaine, and on subsequent hospital admissions, his EF had fallen to 20%. He represents today with altered mental status, endorsing cocaine use. On further evaluation, he has a potassium of 7, Cr 2.4, AST/ALT 200/72, CK 1302, BNP 4307, co2 14. On my evaluation he is obtunded and agonally breathing, intermittently tachypneic. I performed bedside critical care echo which demonstrated a severe biventricular dysfunction and an EF < 10%. there was spontaneous echo contrast in the LV and the aortic valve appeared to open only minimally due to low-flow. Patient is grossly anasarcic with 3+ edema bilaterally up to the abdomen. he has JVD above the level of the mandible. I emergently intubated the patient (see separate procedure note for details). I emergently placed arterial, central lines, and dialysis catheter. potassium did not improve with medical therapy. we consulted nephrology for emergent HD. I also placed the patient on epinephrine drip for cardiogenic shock. due to the patient's mental status and clinical status, no additional information is available from him. ROS unobtainable. 11/20: Remains sedated, orally intubated on mechanical ventilation. Dialyzed this morning. Remains on pressors. 11/21: Remains sedated, orally intubated on mechanical ventilation. Hypothermic this morning. 11/22: Remains sedated, orally intubated on mechanical ventilation. Dialysis scheduled today. 11/23: Remains sedated, orally intubated on mechanical ventilation. On milrinone. 11/24, 11/25: Remains sedated, orally intubated on mechanical ventilation. Tolerating tube feeds. 11/26: Sedated, orally intubated on mechanical ventilation. Tolerating tube feeds. 11/27 No events overnight. Sedated with Versed and intubated. On Milrinone drip. 11/28 Patient remains intubated and sedated with Versed. On Milrinone drip. T: 99.7 yesterday. Had 7 runs of asymptomatic Vtach overnight. 11/29 Patient is sedated with Versed and intubated. Remains on Milrinone. T: 100.4 last night. Had 1 run (6 beats) asymptomatic Vtach overnight. Gets tachycardic and tachypneic with CPAP trials. 11/30 Patient remains sedated and intubated. T:100.4 last night. Not tolerating CPAP trials. 12/01 No events overnight. T:100.0 last night. Sedated with versed and on Milrinone. 12/02 Patient remains intubated and sedated. T;100.0 last night. On Versed and Diprivian infusion for sedation. Not tolerating CPAP trials. Objective Vital Signs / I&O: Vital Signs 12/01/17 08:46 12/01/17 08:50 12/01/17 11:48 Temperature Pulse Rate 124 H Respiratory Rate 19 17 21 Blood Pressure Pulse Oximetry 100 99 12/01/17 11:50 12/01/17 12:00 12/01/17 15:32 Temperature 99.3 F Pulse Rate 122 H 120 H Respiratory Rate 21 20 16 Blood Pressure 118/82 Pulse Oximetry 99 100 12/01/17 20:00 12/01/17 20:49 12/02/17 00:00 Temperature 98.6 F 99.5 F Pulse Rate 111 H 105 H Respiratory Rate 12 22 22 Blood Pressure 99/66 L 87/61 L Pulse Oximetry 100 100 98 12/02/17 00:19 12/02/17 04:00 12/02/17 04:18 Temperature 97.6 F Pulse Rate 104 H Respiratory Rate 22 16 16 Blood Pressure 109/80 Pulse Oximetry 100 98 98 12/02/17 08:14 Temperature Pulse Rate Respiratory Rate 20 Blood Pressure Pulse Oximetry 99 Intake & Output 12/01/17 12/02/17 12/02/17 18:59 06:59 18:59 Intake Total 218.8 / 218.8 268.8 / 268.8 Output Total 1650 / 1650 175 / 175 Balance -1431.2 / -1431.2 93.8 / 93.8 Weight 63.5 kg Intake: IV 218.8 / 218.8 268.8 / 268.8 Versed Inj 50 mg In 50 ml @ 2 18.8 / 18.8 68.8 / 68.8 MG/HR 2 mls/hr IV.CONT TITRATE PRN Rx#:[id number] Diprivan 1000 mg/100 ml Inj 1, 100 / 100 000 mg In 100 ml @ 5 MCG/KG/MIN 1.89 mls/hr IV.CONT TITRATE PRN Rx#:[id number] Merrem Inj 1,000 MG In NS Inj 200 / 200 100 / 100 100 ML @ 200 mls/hr IV.SIG Q8H RUDDY Rx#:[id number] Output: Stool 300 / 300 75 / 75 Urine Amount (Catheter) 1350 / 1350 100 / 100 Condom 100 / 100 Indwelling Urethral Catheter 1350 / 1350 Other: Date of Last Bowel Movement 12/01/17 12/02/17 Result Diagrams: 12/02/17 04:00 12/02/17 04:00 Other Results: Laboratory Results - last 12 hr 12/01/17 12/02/17 12/02/17 23:56 04:00 04:00 WBC 4.2 RBC 4.63 Hgb 13.6 Hct 41.4 MCV 89.4 MCH 29.4 MCHC 32.8 RDW 14.6 Plt Count 180 MPV 9.6 Neut % (Auto) 76.9 H Lymph % (Auto) 13.0 [place] % (Auto) 7.5 Eos % (Auto) 1.7 Baso % (Auto) 0.9 Neut # (Auto) 3.2 Lymph # (Auto) 0.5 L [place] # (Auto) 0.3 Eos # (Auto) 0.1 Baso # (Auto) 0.0 WBC Differential . Differential Comment Auto diff final Sodium 138 Potassium 3.6 Chloride 101 Carbon Dioxide 31.5 Anion Gap 6 BUN 30 H Creatinine 1.06 Estimated GFR 87 L POC Glucose 96 Random Glucose 100 Calcium 8.2 L Phosphorus 2.2 L Magnesium 1.8 12/02/17 12/02/17 05:07 07:37 WBC RBC Hgb Hct MCV MCH MCHC RDW Plt Count MPV Neut % (Auto) Lymph % (Auto) [place] % (Auto) Eos % (Auto) Baso % (Auto) Neut # (Auto) Lymph # (Auto) [place] # (Auto) Eos # (Auto) Baso # (Auto) WBC Differential Differential Comment Sodium Potassium Chloride Carbon Dioxide Anion Gap BUN Creatinine Estimated GFR POC Glucose 96 106 Random Glucose Calcium Phosphorus Magnesium Imaging: Abdomen/Pelvis CT 11/19/17 03:55 CONCLUSION: 1. Limited, suboptimal examination performed without intravenous or oral contrast. The study is degraded by motion artifact as well. 2. Abnormal bowel gas pattern with multiple small air-fluid levels. The bowel is suboptimally visualized and evaluated secondary to the lack of the intravenous and oral contrast as well as diffuse ascites. This may represent a gastroenteritis and/or ileus. Obstruction is less likely. 3. Diffuse ascites throughout the abdomen and pelvis. 4. Moderate size right effusion which is increased from the prior study. There is a new small left effusion. 5. Moderate cardiomegaly. 6. No definite gallstones identified. Head CT 11/19/17 03:55 CONCLUSION: 1. No acute hemorrhage or mass effect. 2. Mild motion and streak artifact. . Chest X-Ray 11/27/17 08:49 CONCLUSION: 1. Mild to moderate pulmonary vascular congestion. 2. Cardiomegaly. 3. Tiny bilateral pleural effusions. 4. Multiple tubes and lines are stable. Objective Remarks: GENERAL: Patient is 57 yo intubated and sedated SKIN: Warm and dry. HEAD: Normocephalic. EYES: No scleral icterus. No injection or drainage. NECK: Supple, trachea midline. No JVD or lymphadenopathy. CARDIOVASCULAR: Regular rate and rhythm without murmurs, gallops, or rubs. RESPIRATORY: Breath sounds equal bilaterally. No accessory muscle use. GASTROINTESTINAL: Abdomen soft, non-tender, nondistended. MUSCULOSKELETAL: No cyanosis, or edema. Neuro: Sedated Assessment and Plan - Assessment and Plan Plan: Plan by systems: Neurologic: Acute toxic encephalopathy Acute cocaine intoxication Acute metabolic encephalopathy secondary to shock On Versed/Diprivan drips for sedation. Daily sedation vacation. Monitor neuro status. Respiratory: Acute hypoxic and hypercarbic respiratory failure Acute severe pulmonary edema Probable Crack Lung Continue with vent support keep sats >92% On PRVC RR 16, TV550, IT:1.1, PEEP:5, FIO2: 30% Bronchodilators. SBT daily as maria elena. Patient is not tolerating CPAP trials- gets apneic, tachycardic and tachypneic. If can not be medically extubated family is leaning toward comfort care. Cardiovascular: s/p Cardiogenic shock Acute severe systolic congestive heart failure exacerbation Acute type II non-ST elevation myocardial infarction secondary to demand ischemia known prior EF 20% (09/2017), Echo 11/27: EF <20%, mod- severe MR, PAP 53.9mmHg likely secondary to chronic cocaine use superimposed on cardiomyopathy. Monitor HR and BP keep MAP>65mmHg. on Coreg 3.125mg BID. add Lisinopril 5mg daily On Milrinone drip. Lactic acid resolved 1.1 on 11/20 Renal: Acute kidney injury- resolved Monitor renal function, I/O's, electrolytes replacement per protocol. Vascath d/c 11/26. Continue Lasix 40mg IV daily Renal is following. FEN/GI: Severe acute protein calorie malnutrition On tube feeds- Glucerna 1.5 with goal rate 45ml/hr Heme/ID: Daily CBC Hep C reactive, HIV reactive on screening test. CD4 count: 60 Continue Merrem Monitor for signs of infections ( Fever, WBC). urine cxs: ESBL E.coli 11/27 Sputum cx: Enterobacter, Kleb BC 11/29: NGTD ID is following Endocrine: Acute hypoglycemia, severe D10W at 30 miles an hour SSI with accuchecks Prophylaxis: GI Prophylaxis Pepcid IV DVT Prophylaxis -- SCDs Subcu heparin Lines: 11/19 right brachial arterial line 11/19 right subclavian 7 [place] triple-lumen catheter 11/19 right IJ 14 [place] 20 cm dialysis catheter d/c 11/26 11/19 [place] Prognosis appears poor. Palliative care following to assist with deciding goals of therapy. Family is leaning toward withdrawal life support if he can not be medically extubated. Level 3
[2017-12-02] MEDS: Senna/Docusate Sodium 8.6/50 MG Tablet PO SCH ×2 (08:20→20:30)
[2017-12-02] MEDS: Lisinopril 5 MG Tablet PO SCH (08:20)
[2017-12-02] MEDS: Famotidine PF Inj 20 MG/2 ML Vial IV.PUSH SCH ×2 (08:20→20:29)
--- NOTE | 2017-12-02 09:33 | P.PNID ---
Subjective Remarks: Patient is a 57-year-old male, brought into the hospital after he was noted by his friend to have some altered mental status. He was noted to have a blood sugar of 50 in the ambulance and he received some dextrose with some improvement in his mentation. He was able to give some history to the ED MD, and admitted that he has been using cocaine, but he has denied any chest pain, shortness of breath. In the emergency room he was found to have an elevated creatinine of 2.4, potassium of 7, elevated LFTs and CPK, as well as B natruretic peptide of 4307. He was acidotic. His mental status continued to deteriorate in the emergency room, and he developed progressive obtundation, and required emergent intubation. He also became hypotensive, and he had an echo done at bedside with severe biventricular dysfunction with an EF of less than 10%. He was placed on epinephrine for cardiogenic shock. Since that time patient has remained intubated. He had emergent hemodialysis, and his electrolytes improved, as well as his creatinine. He is off HD now. He has moderate clear secretions in his ET. He has not been tolerating CPAP trials. Palliative medicine is also following patient, and he has DNR status. Patient has history of cardiomyopathy with a prior EF of 20%, and had undergone mitral valve repair back in June 2017. During his mitral valve surgery he had a preserved LV function, but post operative, he apparently continued to use cocaine and had subsequent hospital admission with documentation of a decrease in his EF to about 20%. On this admission patient had HIV testing, and the results came back positive. Over the last 2448 hrs., his temperature had increased. He had cultures done, and his sputum culture is growing Enterobacter and Klebsiella, and his urine culture has E. coli ESBL positive. Patient currently is afebrile. His hemodynamics are stable. Monitor shows sinus rhythm, with frequent PACs. His chest x-ray has evidence of pulmonary vascular congestion. Infectious disease consultation has been requested to assist with management of his multiple infections. Notes reviewed Temps occ low grade Remains on the vent, not tolerating CPAP Looks dyspneic on the vent CD4 count 60 ESBL E.coli in the urine Sputum with Enterobacter and Kleb Antibiotics: meropenem Lines: RSC TLC Past Medical History: COPD (chronic obstructive pulmonary disease) Diabetes Gout Non-ischemic cardiomyopathy CHF (congestive heart failure) Cocaine use Hypertension H/O mitral valve repair Hep C HIV Allergies/Adverse Reactions: Allergies No Known Allergies Allergy (Unverified 11/19/17 04:45) Objective Vital Signs 12/01/17 11:48 12/01/17 11:50 12/01/17 12:00 Temperature 99.3 F Pulse Rate 122 H 120 H Respiratory Rate 21 21 20 Blood Pressure 118/82 Pulse Oximetry 99 99 12/01/17 15:32 12/01/17 20:00 12/01/17 20:49 Temperature 98.6 F Pulse Rate 111 H Respiratory Rate 16 12 22 Blood Pressure 99/66 L Pulse Oximetry 100 100 100 12/02/17 00:00 12/02/17 00:19 12/02/17 04:00 Temperature 99.5 F 97.6 F Pulse Rate 105 H 104 H Respiratory Rate 22 22 16 Blood Pressure 87/61 L 109/80 Pulse Oximetry 98 100 98 12/02/17 04:18 12/02/17 08:14 Temperature Pulse Rate Respiratory Rate 16 20 Blood Pressure Pulse Oximetry 98 99 Intake & Output 12/01/17 12/02/17 12/02/17 18:59 06:59 18:59 Intake Total 218.8 / 218.8 268.8 / 268.8 18.8 / 18.8 Output Total 1650 / 1650 175 / 175 Balance -1431.2 / -1431.2 93.8 / 93.8 18.8 / 18.8 Weight 63.5 kg Intake: IV 218.8 / 218.8 268.8 / 268.8 18.8 / 18.8 Versed Inj 50 mg In 50 ml @ 2 18.8 / 18.8 68.8 / 68.8 18.8 / 18.8 MG/HR 2 mls/hr IV.CONT TITRATE PRN Rx#:[id number] Diprivan 1000 mg/100 ml Inj 1, 100 / 100 000 mg In 100 ml @ 5 MCG/KG/MIN 1.89 mls/hr IV.CONT TITRATE PRN Rx#:[id number] Merrem Inj 1,000 MG In NS Inj 200 / 200 100 / 100 100 ML @ 200 mls/hr IV.SIG Q8H RUDDY Rx#:[id number] Output: Stool 300 / 300 75 / 75 Urine Amount (Catheter) 1350 / 1350 100 / 100 Condom 100 / 100 Indwelling Urethral Catheter 1350 / 1350 Other: Date of Last Bowel Movement 12/01/17 12/02/17 11/29/17 12:00 Blood - Peripheral Aerobic Blood Culture - Preliminary No growth in 2 days 11/29/17 12:00 Blood - Peripheral Anaerobic Blood Culture - Preliminary No growth in 2 days 11/29/17 11:55 Blood - Peripheral Aerobic Blood Culture - Preliminary No growth in 2 days 11/29/17 11:55 Blood - Peripheral Anaerobic Blood Culture - Preliminary No growth in 2 days 11/27/17 13:30 Catheterized Urine Urine Culture - Final Escherichia coli ESBL positive 11/27/17 13:20 Sputum - Endotracheal Gram Stain - Final 11/27/17 13:20 Sputum - Endotracheal Sputum Culture - Final Enterobacter cloacae Klebsiella pneumoniae Lab - Hematology Results 12/01/17 12/02/17 04:42 04:00 WBC 4.3 4.2 RBC 4.49 L 4.63 Hgb 13.1 13.6 Hct 40.3 41.4 MCV 89.8 89.4 MCH 29.2 29.4 MCHC 32.5 32.8 RDW 15.1 14.6 Plt Count 170 180 MPV 9.4 9.6 Neut % (Auto) 73.7 H 76.9 H Lymph % (Auto) 14.9 13.0 [place] % (Auto) 7.6 7.5 Eos % (Auto) 3.4 1.7 Baso % (Auto) 0.4 0.9 Neut # (Auto) 3.2 3.2 Lymph # (Auto) 0.6 L 0.5 L [place] # (Auto) 0.3 0.3 Eos # (Auto) 0.1 0.1 Baso # (Auto) 0.0 0.0 WBC Differential . . Differential Comment Auto diff final Auto diff final Lab - Chemistry Results 12/01/17 12/01/17 12/01/17 04:42 11:46 17:55 Sodium 140 Potassium 3.7 Chloride 103 Carbon Dioxide 32.2 H Anion Gap 5 BUN 29 H Creatinine 0.96 Estimated GFR Greater than 89 POC Glucose 121 H 90 Random Glucose 103 Calcium 7.6 L Phosphorus 1.9 L Magnesium 1.9 12/01/17 12/02/17 12/02/17 23:56 04:00 05:07 Sodium 138 Potassium 3.6 Chloride 101 Carbon Dioxide 31.5 Anion Gap 6 BUN 30 H Creatinine 1.06 Estimated GFR 87 L POC Glucose 96 96 Random Glucose 100 Calcium 8.2 L Phosphorus 2.2 L Magnesium 1.8 12/02/17 07:37 Sodium Potassium Chloride Carbon Dioxide Anion Gap BUN Creatinine Estimated GFR POC Glucose 106 Random Glucose Calcium Phosphorus Magnesium Imaging: ITS Impressions Abdomen/Pelvis CT 11/19/17 03:55 CONCLUSION: 1. Limited, suboptimal examination performed without intravenous or oral contrast. The study is degraded by motion artifact as well. 2. Abnormal bowel gas pattern with multiple small air-fluid levels. The bowel is suboptimally visualized and evaluated secondary to the lack of the intravenous and oral contrast as well as diffuse ascites. This may represent a gastroenteritis and/or ileus. Obstruction is less likely. 3. Diffuse ascites throughout the abdomen and pelvis. 4. Moderate size right effusion which is increased from the prior study. There is a new small left effusion. 5. Moderate cardiomegaly. 6. No definite gallstones identified. Head CT 11/19/17 03:55 CONCLUSION: 1. No acute hemorrhage or mass effect. 2. Mild motion and streak artifact. . Chest X-Ray 11/27/17 08:49 CONCLUSION: 1. Mild to moderate pulmonary vascular congestion. 2. Cardiomegaly. 3. Tiny bilateral pleural effusions. 4. Multiple tubes and lines are stable. Physical Exam: GENERAL: Sedated, on the vent, looks mildly dyspneic SKIN: Cool and dry. No generalized rash, no ecchymoses and no evidence of embolic lesions. HEAD: Atraumatic. Normocephalic. No temporal wasting, or tenderness. EYES: [place] conjunctiva. No petechia or hemorrhage. Has mild conjunctival injection. Pupils equal, round and reactive to light. No scleral icterus. EARS, NOSE AND THROAT: Nose without bleeding or purulent nasal discharge. He is orally intubated. NECK: Trachea midline. Supple and not tender, no meningeal signs CARDIOVASCULAR: Irregular rate and rhythm. No murmurs, rubs or gallops heard. Sternotomy scar compatible with surgical history. RESPIRATORY: Coarse breath sounds bilaterally, decreased at the bases. ABDOMEN: Soft, non-tender, nondistended. Bowel sounds present and normoactive. No guarding. No rebound. No organomegaly. EXTREMITIES: No clubbing, cyanosis, or edema.No joint effusion, has good ROM. No calf tenderness. Well perfused and warm. NEUROLOGICAL: Opens eyes when stimulated, not interacting. No Babinski, or ankle clonus. PSYCHIATRIC: Unable to assess LINE: No evidence of infection, has RSC TLC : Condom cath in place, urine looks ok. Assessment and Plan - Plan Impression Fevers since 11/28, has been on vent since 11/19 - temps better - has HCAP/VAP, C/S with Enterobacter and Klebsiella - UTI, UC with E coli ESBL+ Kleb and Enterobacter PNA E coli ESBL UTI Respiratory failure, CHF, PNA Cardiomyopathy, EF <10% Prior MV repair Active cocaine use Newly Dx HIV, CD4 count 60 S/P renal failure, had 2 HD, renal function improved Recommendation Continue Meropenem fu repeat BC with next fever Follow C/S Monitor temps Monitor progress Weaning as tolerated per CCM
[2017-12-02] MEDS: Potassium Phosphate 500 MG Soluble Tablet PO PRN ×2 (10:29→14:05)
--- NOTE | 2017-12-02 13:16 | P.DIET ---
Nutritional Evaluation Type of nutrition evaluation: follow-up Nutrition consult regarding: Tube Feeding Objective - Diagnosis AMS, Acute Kidney Injury, CHF Exac, Hyperkalemia - Objective % IBW: 81 (IBW = 172#) Body Weight Used for Calculations: Actual (63.5) Energy Needs - Lower Range (kCal/kg): 30 Energy Needs - Upper Range (kCal/kg): 35 Lower Limit kCal/kg (kCals): 1,905 Upper Limit kCal/kg (kCals): 2,223 Lower Limit Protein Factor (Grams per Kg): 1.2 Upper Limit Protein Factor (Grams per Kg): 1.5 Lower Protein Needs (Protein): 76 Upper Protein Needs (Protein): 95 Dietitian Reviewed in Medical Record: Curent medications, Intake & Output, Labs , Medical history, Tube feeding Diet Order: NPO Objective Comments: PMH: Cardiomyopathy EF 20%, recent MVR, ongoing cocaine use Feeding - Current Tube Feeding Tube Feeding Product: Glucerna 1.5 Tube Feeding Rate: 25 Assessment Assessment: Pt is at nutritional risk r/t need for TF'ing. HD has been d/c'ed. Current TF order is for Glucerna 1.5 @ 45 mls/hr and pt is currently receiving 25 mls/hr. To meet needs with Glucerna 1.5, recommend goal rate of 55 mls/hr to provide 1980 cals, 109 gms protein and 1002 mls of free water. Some additional kcals will be provided by low rate propofol 91.1 kcal/ml). CBW = 63.5 kg. Weight loss noted. Recommendations: Increase Glucerna 1.5 to 55 mls/hr goal Dietitian to Monitor: Lab values, Electrolytes, Renal labs, Glucose level, Intake & Output, Tube feeding tolerance, Weight change, Medical course
[2017-12-02] MEDS: Dextrose 10% in Water Inj 1,000 ML IV.SIG SCH ×2 (16:22→19:49)
--- NOTE | 2017-12-02 16:37 | P.PNPAL ---
Reason for Visit Reason for visit: a. To assist with evaluation and management of symptoms including: Altered mental status, edema b. To assist medical decision maker(s) with: better understanding of current medical conditions; weighing benefits/burdens of medical treatment options; making medical treatment decisions. Subjective Subjective/Interval History: Follow up medically necessary for symptom management. Patient remains intubated, sedated on mechanical ventilation. Patient is on FIO2 35% and has not been tolerating CPAP trials. No CPAP trial today per bedside RN. Patient has also been having low grade temperatures. Moderate amount of endotracheal secretions per bedside RN. CD4 count 60 collected on 11/29/17. Patient sedated on Midazolam infusion at 10mg/hr and Propofol infusion at 5 mcg/kg/min. Patient continues on Milrinone infusion at 0.25mcg/kg/min. Patient continues to have asymptomatic 4+ beat runs of V.tach per bedside RN. 2+ Edema noted to BUE and trace edema to bilateral lower extremities. Patient is on Furosemide 40mg IVP daily. Case discussed with bedside RN. Family/Friend Interactions: Telephone call to patient`s sister Kaylie who is currently living with patient` s mother- no response- Left a voice message. Advance Directives Living Will: Never completed Health Care Surrogate: Never completed Durable Power of [employer] Counselor: Never completed Health Care Surrogate Name and Number: HCP: Mother-Angelina Medina [phone]/ Objective Vital Signs: Vital Signs 12/01/17 20:00 12/01/17 20:49 12/02/17 00:00 Temperature 98.6 F 99.5 F Pulse Rate 111 H 105 H Respiratory Rate 12 22 22 Blood Pressure 99/66 L 87/61 L Pulse Oximetry 100 100 98 12/02/17 00:19 12/02/17 03:30 12/02/17 03:46 Temperature Pulse Rate 101 H 107 H Respiratory Rate 22 16 16 Blood Pressure 109/80 Pulse Oximetry 100 95 100 12/02/17 04:00 12/02/17 04:15 12/02/17 04:18 Temperature 97.6 F Pulse Rate 107 H 108 H Respiratory Rate 16 16 16 Blood Pressure 101/73 96/71 L Pulse Oximetry 98 97 98 12/02/17 04:31 12/02/17 04:45 12/02/17 05:00 Temperature Pulse Rate 107 H 104 H 104 H Respiratory Rate 17 23 22 Blood Pressure 107/74 103/59 L 103/66 Pulse Oximetry 99 98 100 12/02/17 05:15 12/02/17 05:31 12/02/17 05:45 Temperature Pulse Rate 104 H 101 H 103 H Respiratory Rate 22 22 22 Blood Pressure 108/82 121/76 100/75 Pulse Oximetry 100 100 100 12/02/17 06:00 12/02/17 06:16 12/02/17 06:30 Temperature Pulse Rate 98 H 100 H 96 H Respiratory Rate 22 22 20 Blood Pressure 116/87 101/75 103/75 Pulse Oximetry 100 100 99 12/02/17 06:45 12/02/17 07:00 12/02/17 07:15 Temperature Pulse Rate 99 H 97 H 98 H Respiratory Rate 21 20 22 Blood Pressure 103/84 104/84 104/76 Pulse Oximetry 100 100 100 12/02/17 07:31 12/02/17 07:45 12/02/17 08:00 Temperature 98.1 F Pulse Rate 99 H 102 H 112 H Respiratory Rate 21 22 19 Blood Pressure 112/83 121/87 173/84 H Pulse Oximetry 99 100 100 12/02/17 08:14 12/02/17 08:16 12/02/17 08:44 Temperature Pulse Rate 101 H 100 H Respiratory Rate 20 21 20 Blood Pressure 146/120 H 148/80 H Pulse Oximetry 99 90 L 89 L 12/02/17 08:46 12/02/17 09:00 12/02/17 09:01 Temperature Pulse Rate 99 H 99 H 100 H Respiratory Rate 20 21 21 Blood Pressure 129/72 112/61 Pulse Oximetry 97 96 97 12/02/17 09:15 12/02/17 09:30 12/02/17 10:00 Temperature Pulse Rate 97 H 96 H 96 H Respiratory Rate 20 21 19 Blood Pressure 110/61 114/74 112/84 Pulse Oximetry 97 100 100 12/02/17 10:27 12/02/17 10:33 12/02/17 11:00 Temperature Pulse Rate 99 H 99 H 97 H Respiratory Rate 20 19 20 Blood Pressure 130/81 109/76 96/71 L Pulse Oximetry 100 100 98 12/02/17 11:43 12/02/17 11:55 12/02/17 12:00 Temperature 98.1 F Pulse Rate 94 H 96 H Respiratory Rate 20 19 18 Blood Pressure 92/66 L 88/62 L Pulse Oximetry 100 99 97 12/02/17 12:36 12/02/17 15:37 Temperature Pulse Rate Respiratory Rate 17 25 H Blood Pressure Pulse Oximetry 99 99 Intake & Output 12/01/17 12/02/17 12/02/17 18:59 06:59 18:59 Intake Total 218.8 / 218.8 268.8 / 268.8 68.8 / 68.8 Output Total 1650 / 1650 175 / 175 Balance -1431.2 / -1431.2 93.8 / 93.8 68.8 / 68.8 Weight 63.5 kg Intake: IV 218.8 / 218.8 268.8 / 268.8 68.8 / 68.8 Versed Inj 50 mg In 50 ml @ 2 18.8 / 18.8 68.8 / 68.8 68.8 / 68.8 MG/HR 2 mls/hr IV.CONT TITRATE PRN Rx#:[id number] Diprivan 1000 mg/100 ml Inj 1, 100 / 100 000 mg In 100 ml @ 5 MCG/KG/MIN 1.89 mls/hr IV.CONT TITRATE PRN Rx#:[id number] Merrem Inj 1,000 MG In NS Inj 200 / 200 100 / 100 100 ML @ 200 mls/hr IV.SIG Q8H RUDDY Rx#:[id number] Output: Stool 300 / 300 75 / 75 Urine Amount (Catheter) 1350 / 1350 100 / 100 Condom 100 / 100 Indwelling Urethral Catheter 1350 / 1350 Other: Date of Last Bowel Movement 12/01/17 12/02/17 Physical Exam: CONSTITUTIONAL/GENERAL: This is an adequately nourished patient, intubated, sedated, in no apparent distress. TUBES/LINES/DRAINS: right subclavian central line, ETT, Condom catheter,OGT, . SKIN: No jaundice, rashes, or lesions. No wounds seen anteriorly. Skin temperature appropriate. Not diaphoretic. HEAD: Atraumatic. Normocephalic. EYES: Pupils equal and round and sluggishly reactive. No scleral icterus. No injection or drainage. Fundi not examined. ENT: Nose without bleeding or purulent drainage. Orally intubated. NECK: Trachea midline. Supple, nontender. CARDIOVASCULAR: S1, S2, S3. Irregular rhythm, controlled rate without gallops, or rubs. Soft 1/6 systolic ejection murmur. No JVD. Pedal pulses+ve by doppler RESPIRATORY/CHEST: Symmetric, unlabored respirations. Rhonchi to auscultation. GASTROINTESTINAL: Abdomen soft, nondistended. Intermittent BS. OGT with TF infusing at 35ml.hr-Has a rectal bag with liquid stool GENITOURINARY: Without palpable bladder distension. Condom catheter MUSCULOSKELETAL: Extremities without clubbing or cyanosis, trace edema to BLE, 2 + to BUE. No mottling or clubbing. NEUROLOGICAL: Intubated, moves all 4 extremities to command. PSYCHIATRIC: Unable to assess. Currently sedated and calm. . Diagnostic Tests Laboratory: Laboratory Results - last 72 hr 11/29/17 11/29/17 11/29/17 11:55 17:09 23:50 WBC RBC Hgb Hct MCV MCH MCHC RDW Plt Count MPV Neut % (Auto) Lymph % (Auto) [place] % (Auto) Eos % (Auto) Baso % (Auto) Neut # (Auto) Lymph # (Auto) [place] # (Auto) Eos # (Auto) Baso # (Auto) WBC Differential Differential Comment Sodium Potassium Chloride Carbon Dioxide Anion Gap BUN Creatinine Estimated GFR POC Glucose 96 109 Random Glucose Calcium Phosphorus Magnesium Absolute Lymphocytes 647 L % CD3 Cells 84 Absolute CD3 Count 545 L % CD3-/CD16+/CD56+ 6 Abs CD3-/CD16+/CD56+ 38 L % CD4 Cells 9 L Absolute CD4 Count 60 L T-Help/Suppress Ratio 0.10 L % CD8 Cells 75 H Absolute CD8 Count 504 % CD19 Cells 9 Absolute CD19 Count 53 L 11/30/17 11/30/17 12/01/17 03:30 03:30 04:42 WBC 4.6 4.3 RBC 4.40 L 4.49 L Hgb 13.0 13.1 Hct 39.4 40.3 MCV 89.5 89.8 MCH 29.5 29.2 MCHC 33.0 32.5 RDW 15.1 15.1 Plt Count 157 170 MPV 9.9 9.4 Neut % (Auto) 74.2 H 73.7 H Lymph % (Auto) 15.3 14.9 [place] % (Auto) 6.0 7.6 Eos % (Auto) 3.7 3.4 Baso % (Auto) 0.8 0.4 Neut # (Auto) 3.4 3.2 Lymph # (Auto) 0.7 L 0.6 L [place] # (Auto) 0.3 0.3 Eos # (Auto) 0.2 0.1 Baso # (Auto) 0.0 0.0 WBC Differential . . Differential Comment Auto diff final Auto diff final Sodium 140 Potassium 3.9 Chloride 103 Carbon Dioxide 31.8 Anion Gap 5 BUN 30 H Creatinine 1.09 Estimated GFR 85 L POC Glucose Random Glucose 99 Calcium 7.7 L Phosphorus 2.0 L Magnesium 1.9 Absolute Lymphocytes % CD3 Cells Absolute CD3 Count % CD3-/CD16+/CD56+ Abs CD3-/CD16+/CD56+ % CD4 Cells Absolute CD4 Count T-Help/Suppress Ratio % CD8 Cells Absolute CD8 Count % CD19 Cells Absolute CD19 Count 12/01/17 12/01/17 12/01/17 04:42 11:46 17:55 WBC RBC Hgb Hct MCV MCH MCHC RDW Plt Count MPV Neut % (Auto) Lymph % (Auto) [place] % (Auto) Eos % (Auto) Baso % (Auto) Neut # (Auto) Lymph # (Auto) [place] # (Auto) Eos # (Auto) Baso # (Auto) WBC Differential Differential Comment Sodium 140 Potassium 3.7 Chloride 103 Carbon Dioxide 32.2 H Anion Gap 5 BUN 29 H Creatinine 0.96 Estimated GFR Greater than 89 POC Glucose 121 H 90 Random Glucose 103 Calcium 7.6 L Phosphorus 1.9 L Magnesium 1.9 Absolute Lymphocytes % CD3 Cells Absolute CD3 Count % CD3-/CD16+/CD56+ Abs CD3-/CD16+/CD56+ % CD4 Cells Absolute CD4 Count T-Help/Suppress Ratio % CD8 Cells Absolute CD8 Count % CD19 Cells Absolute CD19 Count 12/01/17 12/02/17 12/02/17 23:56 04:00 04:00 WBC 4.2 RBC 4.63 Hgb 13.6 Hct 41.4 MCV 89.4 MCH 29.4 MCHC 32.8 RDW 14.6 Plt Count 180 MPV 9.6 Neut % (Auto) 76.9 H Lymph % (Auto) 13.0 [place] % (Auto) 7.5 Eos % (Auto) 1.7 Baso % (Auto) 0.9 Neut # (Auto) 3.2 Lymph # (Auto) 0.5 L [place] # (Auto) 0.3 Eos # (Auto) 0.1 Baso # (Auto) 0.0 WBC Differential . Differential Comment Auto diff final Sodium 138 Potassium 3.6 Chloride 101 Carbon Dioxide 31.5 Anion Gap 6 BUN 30 H Creatinine 1.06 Estimated GFR 87 L POC Glucose 96 Random Glucose 100 Calcium 8.2 L Phosphorus 2.2 L Magnesium 1.8 Absolute Lymphocytes % CD3 Cells Absolute CD3 Count % CD3-/CD16+/CD56+ Abs CD3-/CD16+/CD56+ % CD4 Cells Absolute CD4 Count T-Help/Suppress Ratio % CD8 Cells Absolute CD8 Count % CD19 Cells Absolute CD19 Count 12/02/17 12/02/17 05:07 07:37 WBC RBC Hgb Hct MCV MCH MCHC RDW Plt Count MPV Neut % (Auto) Lymph % (Auto) [place] % (Auto) Eos % (Auto) Baso % (Auto) Neut # (Auto) Lymph # (Auto) [place] # (Auto) Eos # (Auto) Baso # (Auto) WBC Differential Differential Comment Sodium Potassium Chloride Carbon Dioxide Anion Gap BUN Creatinine Estimated GFR POC Glucose 96 106 Random Glucose Calcium Phosphorus Magnesium Absolute Lymphocytes % CD3 Cells Absolute CD3 Count % CD3-/CD16+/CD56+ Abs CD3-/CD16+/CD56+ % CD4 Cells Absolute CD4 Count T-Help/Suppress Ratio % CD8 Cells Absolute CD8 Count % CD19 Cells Absolute CD19 Count Result Diagrams: 12/02/17 04:00 12/02/17 04:00 Microbiology: Microbiology 11/29/17 12:00 Aerobic Blood Culture - Preliminary Blood - Peripheral No growth in 3 days Anaerobic Blood Culture - Preliminary No growth in 3 days 11/29/17 11:55 Aerobic Blood Culture - Preliminary Blood - Peripheral No growth in 3 days Anaerobic Blood Culture - Preliminary No growth in 3 days Procedures: 11/19/2017: Right radial arterial line placement 11/19/2017: Endotracheal intubation 11/19/2017: Right subclavian triple-lumen catheter placement 11/19/2017 right IJ dialysis catheter placement Dc`d 11/26/17 . 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 He was never and has no children. He was previously in the [employer]. Spiritual: Handicapped Teacher available. Legal: No living will or healthcare surrogate completed. Ethical issues impacting care: None noted. . Important Contacts: Mother: Angelina Medina healthcare proxy- Currently living with daughter, Kaylie Gama. Sister: Bryan Sharp Sister: Kamille Verdugo Brother: Segundo Verdugo Brother: Carter Chavez Sister: Kaylie Gama - , C [phone] . Prognosis: His prognosis is poor. 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 He has suffered a decline in heart function since June 2017 when echocardiogram showed a 50-55% ejection fraction at the time of mitral valve repair. Patient continued to abuse cocaine and possibly other substances and when seen in [place] September 2017 for chest pain was found to have non-ischemic cardiomyopathy with a normal coronary artery circulation and ejection fraction of 20-25%. Echocardiogram at this admission shows cardiogenic shock with an EF less than 10%. He is now requiring inotropic support with milrinone and now has acute kidney injury requiring dialysis for both hyperkalemia and fluid overload. At this time he remains on life support, intubated, but is at elevated risk for continued complications and decline. He would be hospice appropriate if goals were consistent. . Code Status: No Code DNR (Do not reintubate) Plan: PLAN: Legal decision maker: At this time the patient is not capacitated for decision making and it is not certain that he will ever regain capacity. He was never and has no children. His mother would be his proxy decision maker per [place] statutes. She had previously been reported to me as demented and unable to make these decisions, however, her daughter, Kaylie, who is her caregiver disputes that and states that her mother is perfectly capable of making these decisions and wishes to be her son's decision-maker. In conversation with Ms. Medina, herself, she appeared appropriate and capable of decision-making. Goals: Aggressive short of no code. CODE STATUS: DO NOT RESUSCITATE SYMPTOMS: * Altered mental status: Presented with altered mental status, positive for cocaine, hypoglycemic, hyperkalemic, in fulminant heart failure, minimally able to make his needs known. Shortly thereafter he required intubation and sedation. Bedside critical care echo showed severe biventricular dysfunction with EF less than 10%, aortic valve opening only minimally due to low flow. HIV positive-CD4 count 60. Gets agitated when sedation is weaned. Remains on Midazolam 10mg/hr and on Propofol at 5mcg/kg/min * Edema: Edema is improving on hemodialysis, which is on hold after today's ultrafiltration as patient's renal status is stabilizing and is having some urine output. Given his severe heart failure, borderline hypotension and impaired renal function, this is likely to be an ongoing problem. Last hemodialysis on 11/23. Edema currently managed with Furosemide 40mgIVP daily. Elevate BLE. Monitor I &Os. Palliative care will continue to follow the patient during hospital course as condition evolves, to assist patient/decision-maker with understanding of their medical conditions, weighing benefits/burdens of treatment options, for clarification of goals of treatment. Additionally will assist with any symptoms of palliative concern. . Attestation Attestation: To help prompt me to consider important information that might be impacting today's encounter and assessment, information from prior notes written by myself or my colleagues may have been "brought forward" into today's note. My signature on this note, however, is an attestation that I personally performed the exam, history, and/or decision-making noted today, and, unless otherwise indicated, the interactions with patient, family, and staff as well as the review of records all occurred today. I also attest that the listed assessment and stated plan reflect my best clinical judgment today based on the combination of historical information, prior notes, and today's exam/ interactions. When time spent is documented, it refers only to time spent today by the signer, or if indicated, combined time spent today by collaborating physician/nurse practitioner.
[2017-12-03] MEDS: Milrinone Inj 20 MG in Sodium Chlor 0.9% Inj 80 ML IV.CONT SCH ×6 (00:08→21:56)
[2017-12-03] MEDS: Heparin - SQ 10,000 UNITS/ML Vial SQ SCH ×4 (00:08→21:58)
[2017-12-03] MEDS: Insulin NovoLIN Regular Correctional Sugar Inj SQ SCH ×4 (00:28→18:18)
[2017-12-03] MEDS: Midazolam 50 MG/50 ML Inj 50 MG/50 ML BAG IV.CONT PRN ×3 (03:29→20:33)
[2017-12-03 03:48] LABS: Eos # (Auto) 0.2 th/mm3 (0.0-0.4); Eos % (Auto) 4.5 % (0.0-4.0); Hematocrit 40.8 % (39.0-51.0); Hemoglobin 13.5 gm/dL (13.0-17.0); Lymph # (Auto) 0.6 th/mm3 (1.0-4.8); Lymph % (Auto) 11.6 % (9.0-44.0); Mean Corpuscular HGB Conc 33.1 % (32.0-36.0); Mean Corpuscular Hemoglobin 29.4 pg (27.0-34.0); Mean Corpuscular Volume 88.8 fL (80.0-100.0); Mono # (Auto) 0.4 th/mm3 (0.0-0.9); Mono % (Auto) 8.6 % (0.0-8.0); Neut # (Auto) 3.5 th/mm3 (1.8-7.7); Neut % (Auto) 74.3 % (16.0-70.0); Platelet Count 215 th/mm3 (150-450); Red Cell Distribution Width 14.6 % (11.6-17.2); White Blood Count 4.8 th/mm3 (4.0-11.0)
[2017-12-03 04:20] LABS: Anion Gap 6 meq/L (5-15); Blood Urea Nitrogen 34 mg/dL (7-18); Calcium 7.7 mg/dL (8.5-10.1); Carbon Dioxide 31.6 meq/L (21.0-32.0); Chloride 100 meq/L (98-107); Glomerular Filtration Rate Greater Than 89 mL/min (>89); Glucose,Random 134 mg/dL (74-106); Potassium 3.8 meq/L (3.5-5.1); Sodium 138 meq/L (136-145)
[2017-12-03] MEDS: Propofol 1000 mg/100 ml Inj 1,000 MG/100 ML BOTTLE IV.CONT PRN (08:18)
[2017-12-03] MEDS: Famotidine PF Inj 20 MG/2 ML Vial IV.PUSH SCH ×2 (08:20→20:32)
[2017-12-03] MEDS: Senna/Docusate Sodium 8.6/50 MG Tablet PO SCH ×2 (08:20→20:33)
[2017-12-03] MEDS: Lisinopril 5 MG Tablet PO SCH (08:20)
--- NOTE | 2017-12-03 08:32 | P.PNCC ---
Subjective Subjective Remarks/Hospital Course: 11/19: This is a 57yM with history of cardiomyopathy and an EF 20% who recently underwent mitral valve repair for severe MR. At that time, he had a preserved LVEF. However, he continued to use illicit cocaine, and on subsequent hospital admissions, his EF had fallen to 20%. He represents today with altered mental status, endorsing cocaine use. On further evaluation, he has a potassium of 7, Cr 2.4, AST/ALT 200/72, CK 1302, BNP 4307, co2 14. On my evaluation he is obtunded and agonally breathing, intermittently tachypneic. I performed bedside critical care echo which demonstrated a severe biventricular dysfunction and an EF < 10%. there was spontaneous echo contrast in the LV and the aortic valve appeared to open only minimally due to low-flow. Patient is grossly anasarcic with 3+ edema bilaterally up to the abdomen. he has JVD above the level of the mandible. I emergently intubated the patient (see separate procedure note for details). I emergently placed arterial, central lines, and dialysis catheter. potassium did not improve with medical therapy. we consulted nephrology for emergent HD. I also placed the patient on epinephrine drip for cardiogenic shock. due to the patient's mental status and clinical status, no additional information is available from him. ROS unobtainable. 11/20: Remains sedated, orally intubated on mechanical ventilation. Dialyzed this morning. Remains on pressors. 11/21: Remains sedated, orally intubated on mechanical ventilation. Hypothermic this morning. 11/22: Remains sedated, orally intubated on mechanical ventilation. Dialysis scheduled today. 11/23: Remains sedated, orally intubated on mechanical ventilation. On milrinone. 11/24, 11/25: Remains sedated, orally intubated on mechanical ventilation. Tolerating tube feeds. 11/26: Sedated, orally intubated on mechanical ventilation. Tolerating tube feeds. 11/27 No events overnight. Sedated with Versed and intubated. On Milrinone drip. 11/28 Patient remains intubated and sedated with Versed. On Milrinone drip. T: 99.7 yesterday. Had 7 runs of asymptomatic Vtach overnight. 11/29 Patient is sedated with Versed and intubated. Remains on Milrinone. T: 100.4 last night. Had 1 run (6 beats) asymptomatic Vtach overnight. Gets tachycardic and tachypneic with CPAP trials. 11/30 Patient remains sedated and intubated. T:100.4 last night. Not tolerating CPAP trials. 12/01 No events overnight. T:100.0 last night. Sedated with versed and on Milrinone. 12/02 Patient remains intubated and sedated. T;100.0 last night. On Versed and Diprivan infusion for sedation. Not tolerating CPAP trials. 12/03 No events ovenright. Sedated and intubated. On Milrinone. Afebrile. Objective Vital Signs / I&O: Vital Signs 12/02/17 08:44 12/02/17 08:46 12/02/17 09:00 Temperature Pulse Rate 100 H 99 H 99 H Respiratory Rate 20 20 21 Blood Pressure 148/80 H 129/72 Pulse Oximetry 89 L 97 96 12/02/17 09:01 12/02/17 09:15 12/02/17 09:30 Temperature Pulse Rate 100 H 97 H 96 H Respiratory Rate 21 20 21 Blood Pressure 112/61 110/61 114/74 Pulse Oximetry 97 97 100 12/02/17 10:00 12/02/17 10:27 12/02/17 10:33 Temperature Pulse Rate 96 H 99 H 99 H Respiratory Rate 19 20 19 Blood Pressure 112/84 130/81 109/76 Pulse Oximetry 100 100 100 12/02/17 11:00 12/02/17 11:43 12/02/17 11:55 Temperature Pulse Rate 97 H 94 H Respiratory Rate 20 20 19 Blood Pressure 96/71 L 92/66 L Pulse Oximetry 98 100 99 12/02/17 12:00 12/02/17 12:30 12/02/17 12:36 Temperature 98.1 F Pulse Rate 96 H 97 H Respiratory Rate 18 20 17 Blood Pressure 88/62 L 90/55 L Pulse Oximetry 97 96 99 12/02/17 13:00 12/02/17 13:11 12/02/17 14:00 Temperature Pulse Rate 98 H 99 H 96 H Respiratory Rate 21 17 18 Blood Pressure 106/75 Pulse Oximetry 94 L 98 99 12/02/17 14:04 12/02/17 14:33 12/02/17 14:50 Temperature Pulse Rate 97 H 93 H 92 H Respiratory Rate 16 16 16 Blood Pressure 96/61 L 72/49 L 103/69 Pulse Oximetry 99 98 100 12/02/17 15:00 12/02/17 15:30 12/02/17 15:37 Temperature Pulse Rate 94 H 98 H Respiratory Rate 16 16 25 H Blood Pressure 106/73 105/74 Pulse Oximetry 100 100 99 12/02/17 16:00 12/02/17 20:00 12/02/17 20:39 Temperature 98.2 F 98.6 F Pulse Rate 97 H 109 H Respiratory Rate 16 23 23 Blood Pressure 101/72 115/78 Pulse Oximetry 100 100 100 12/02/17 23:40 12/03/17 00:00 12/03/17 03:35 Temperature 98.4 F Pulse Rate 109 H Respiratory Rate 16 16 16 Blood Pressure 119/83 Pulse Oximetry 98 100 99 12/03/17 04:00 12/03/17 07:54 Temperature 98.4 F Pulse Rate 104 H Respiratory Rate 16 24 Blood Pressure 117/85 Pulse Oximetry 100 Intake & Output 12/02/17 12/03/17 12/03/17 18:59 06:59 18:59 Intake Total 1418.8 / 1418.8 866 / 866 150 / 150 Output Total 870 / 870 400 / 400 Balance 548.8 / 548.8 466 / 466 150 / 150 Weight 64 kg Intake: IV 1268.8 / 1268.8 200 / 200 150 / 150 Versed Inj 50 mg In 50 ml @ 2 68.8 / 68.8 100 / 100 50 / 50 MG/HR 2 mls/hr IV.CONT TITRATE PRN Rx#:[id number] Diprivan 1000 mg/100 ml Inj 1, 100 / 100 000 mg In 100 ml @ 5 MCG/KG/MIN 1.89 mls/hr IV.CONT TITRATE PRN Rx#:[id number] D10W Inj 1,000 ML @ 30 mls/hr 1000 / 1000 IV.SIG .Q24H [facility] Rx#:[id number] Merrem Inj 1,000 MG In NS Inj 200 / 200 100 / 100 100 ML @ 200 mls/hr IV.SIG Q8H [facility] Rx#:[id number] Tube Feeding 150 / 150 416 / 416 Water Bolus Amount 250 / 250 Output: Urine 850 / 850 Stool 20 / 20 250 / 250 Urine Amount (Catheter) 150 / 150 Condom 150 / 150 Other: Date of Last Bowel Movement 12/02/17 12/03/17 Result Diagrams: 12/03/17 03:26 12/03/17 03:26 Other Results: Laboratory Results - last 12 hr 12/03/17 12/03/17 12/03/17 00:27 03:26 03:26 WBC 4.8 RBC 4.60 Hgb 13.5 Hct 40.8 MCV 88.8 MCH 29.4 MCHC 33.1 RDW 14.6 Plt Count 215 MPV 10.0 Neut % (Auto) 74.3 H Lymph % (Auto) 11.6 [place] % (Auto) 8.6 H Eos % (Auto) 4.5 H Baso % (Auto) 1.0 Neut # (Auto) 3.5 Lymph # (Auto) 0.6 L [place] # (Auto) 0.4 Eos # (Auto) 0.2 Baso # (Auto) 0.0 WBC Differential . Differential Comment Auto diff final Sodium 138 Potassium 3.8 Chloride 100 Carbon Dioxide 31.6 Anion Gap 6 BUN 34 H Creatinine 1.02 Estimated GFR Greater than 89 POC Glucose 115 H Random Glucose 134 H Calcium 7.7 L Imaging: Abdomen/Pelvis CT 11/19/17 03:55 CONCLUSION: 1. Limited, suboptimal examination performed without intravenous or oral contrast. The study is degraded by motion artifact as well. 2. Abnormal bowel gas pattern with multiple small air-fluid levels. The bowel is suboptimally visualized and evaluated secondary to the lack of the intravenous and oral contrast as well as diffuse ascites. This may represent a gastroenteritis and/or ileus. Obstruction is less likely. 3. Diffuse ascites throughout the abdomen and pelvis. 4. Moderate size right effusion which is increased from the prior study. There is a new small left effusion. 5. Moderate cardiomegaly. 6. No definite gallstones identified. Head CT 11/19/17 03:55 CONCLUSION: 1. No acute hemorrhage or mass effect. 2. Mild motion and streak artifact. . Chest X-Ray 11/27/17 08:49 CONCLUSION: 1. Mild to moderate pulmonary vascular congestion. 2. Cardiomegaly. 3. Tiny bilateral pleural effusions. 4. Multiple tubes and lines are stable. Objective Remarks: GENERAL: Patient is 57 yo intubated and sedated SKIN: Warm and dry. HEAD: Normocephalic. EYES: No scleral icterus. No injection or drainage. NECK: Supple, trachea midline. No JVD or lymphadenopathy. CARDIOVASCULAR: Regular rate and rhythm without murmurs, gallops, or rubs. RESPIRATORY: Breath sounds equal bilaterally. No accessory muscle use. GASTROINTESTINAL: Abdomen soft, non-tender, nondistended. MUSCULOSKELETAL: No cyanosis, or edema. Neuro: Sedated Assessment and Plan - Assessment and Plan Plan: Plan by systems: Neurologic: Acute toxic encephalopathy Acute cocaine intoxication Acute metabolic encephalopathy secondary to shock On Versed/Diprivan drips for sedation. Daily sedation vacation. Monitor neuro status. Respiratory: Acute hypoxic and hypercarbic respiratory failure Acute severe pulmonary edema Probable Crack Lung Continue with vent support keep sats >92% On PRVC RR 16, TV550, IT:1.1, PEEP:5, FIO2: 30% Bronchodilators. SBT daily as maria elena. Patient is not tolerating CPAP trials- gets apneic, tachycardic and tachypneic. If can not be medically extubated family is leaning toward comfort care. Cardiovascular: s/p Cardiogenic shock Acute severe systolic congestive heart failure exacerbation Acute type II non-ST elevation myocardial infarction secondary to demand ischemia known prior EF 20% (09/2017), Echo 11/27: EF <20%, mod- severe MR, PAP 53.9mmHg likely secondary to chronic cocaine use superimposed on cardiomyopathy. Monitor HR and BP keep MAP>65mmHg. on Coreg 3.125mg BID. add Lisinopril 5mg daily On Milrinone drip. Lactic acid resolved 1.1 on 11/20 Renal: Acute kidney injury- resolved Monitor renal function, I/O's, electrolytes replacement per protocol. Vascath d/c 11/26. Continue Lasix 40mg IV daily Renal is following. FEN/GI: Severe acute protein calorie malnutrition On tube feeds- Glucerna 1.5 with goal rate 45ml/hr Heme/ID: Daily CBC Hep C reactive, HIV reactive on screening test. CD4 count: 60 Continue Merrem Monitor for signs of infections ( Fever, WBC). urine cxs: ESBL E.coli 11/27 Sputum cx: Enterobacter, Kleb BC 11/29: NGTD ID is following Endocrine: Acute hypoglycemia, severe D10W at 30 miles an hour SSI with accuchecks Prophylaxis: GI Prophylaxis Pepcid IV DVT Prophylaxis -- SCDs Subcu heparin Lines: 11/19 right brachial arterial line 11/19 right subclavian 7 [place] triple-lumen catheter 11/19 right IJ 14 [place] 20 cm dialysis catheter d/c 11/26 11/19 [place] Prognosis appears poor. Palliative care following to assist with deciding goals of therapy. Family is leaning toward withdrawal life support if he can not be medically extubated. Level 3
[2017-12-03] MEDS ORDERED: ASP: Path resistant to other antimicrobials, culture proven OTHER PRN (13:12)
--- NOTE | 2017-12-03 13:17 | P.PNID ---
Subjective Remarks: Patient is a 57-year-old male, brought into the hospital after he was noted by his friend to have some altered mental status. He was noted to have a blood sugar of 50 in the ambulance and he received some dextrose with some improvement in his mentation. He was able to give some history to the ED MD, and admitted that he has been using cocaine, but he has denied any chest pain, shortness of breath. In the emergency room he was found to have an elevated creatinine of 2.4, potassium of 7, elevated LFTs and CPK, as well as B natruretic peptide of 4307. He was acidotic. His mental status continued to deteriorate in the emergency room, and he developed progressive obtundation, and required emergent intubation. He also became hypotensive, and he had an echo done at bedside with severe biventricular dysfunction with an EF of less than 10%. He was placed on epinephrine for cardiogenic shock. Since that time patient has remained intubated. He had emergent hemodialysis, and his electrolytes improved, as well as his creatinine. He is off HD now. He has moderate clear secretions in his ET. He has not been tolerating CPAP trials. Palliative medicine is also following patient, and he has DNR status. Patient has history of cardiomyopathy with a prior EF of 20%, and had undergone mitral valve repair back in June 2017. During his mitral valve surgery he had a preserved LV function, but post operative, he apparently continued to use cocaine and had subsequent hospital admission with documentation of a decrease in his EF to about 20%. On this admission patient had HIV testing, and the results came back positive. Over the last 2448 hrs., his temperature had increased. He had cultures done, and his sputum culture is growing Enterobacter and Klebsiella, and his urine culture has E. coli ESBL positive. Patient currently is afebrile. His hemodynamics are stable. Monitor shows sinus rhythm, with frequent PACs. His chest x-ray has evidence of pulmonary vascular congestion. Infectious disease consultation has been requested to assist with management of his multiple infections. Notes reviewed Temps ok ON the vent sedated CD4 count 60 ESBL E.coli in the urine Sputum with Enterobacter and Kleb Antibiotics: meropenem Lines: RSC TLC Past Medical History: COPD (chronic obstructive pulmonary disease) Diabetes Gout Non-ischemic cardiomyopathy CHF (congestive heart failure) Cocaine use Hypertension H/O mitral valve repair Hep C HIV Allergies/Adverse Reactions: Allergies No Known Allergies Allergy (Unverified 11/19/17 04:45) Objective Vital Signs 12/02/17 14:00 12/02/17 14:04 12/02/17 14:33 Temperature Pulse Rate 96 H 97 H 93 H Respiratory Rate 18 16 16 Blood Pressure 96/61 L 72/49 L Pulse Oximetry 99 99 98 12/02/17 14:50 12/02/17 15:00 12/02/17 15:30 Temperature Pulse Rate 92 H 94 H 98 H Respiratory Rate 16 16 16 Blood Pressure 103/69 106/73 105/74 Pulse Oximetry 100 100 100 12/02/17 15:37 12/02/17 16:00 12/02/17 20:00 Temperature 98.2 F 98.6 F Pulse Rate 97 H 109 H Respiratory Rate 25 H 16 23 Blood Pressure 101/72 115/78 Pulse Oximetry 99 100 100 12/02/17 20:39 12/02/17 23:30 12/02/17 23:40 Temperature Pulse Rate 109 H Respiratory Rate 23 16 16 Blood Pressure 113/77 Pulse Oximetry 100 99 98 12/03/17 00:00 12/03/17 00:30 12/03/17 01:00 Temperature 98.4 F Pulse Rate 109 H 110 H 107 H Respiratory Rate 16 16 16 Blood Pressure 119/83 121/82 107/77 Pulse Oximetry 99 98 100 12/03/17 01:30 12/03/17 02:00 12/03/17 02:30 Temperature Pulse Rate 106 H 107 H 106 H Respiratory Rate 16 16 16 Blood Pressure 122/83 124/88 121/81 Pulse Oximetry 99 99 100 12/03/17 03:00 12/03/17 03:30 12/03/17 03:35 Temperature Pulse Rate 106 H 104 H Respiratory Rate 16 16 16 Blood Pressure 113/82 107/75 Pulse Oximetry 100 98 99 12/03/17 04:00 12/03/17 04:30 12/03/17 05:00 Temperature 98.4 F Pulse Rate 104 H 103 H 112 H Respiratory Rate 16 16 23 Blood Pressure 117/85 116/84 155/104 H Pulse Oximetry 100 100 99 12/03/17 05:05 12/03/17 05:30 12/03/17 06:00 Temperature Pulse Rate 113 H 112 H 108 H Respiratory Rate 17 17 16 Blood Pressure 139/94 H 130/93 H 112/75 Pulse Oximetry 99 99 96 12/03/17 06:30 12/03/17 06:56 12/03/17 07:00 Temperature Pulse Rate 98 H 96 H 104 H Respiratory Rate 16 16 18 Blood Pressure 92/68 L 97/67 L 111/80 Pulse Oximetry 92 L 95 96 12/03/17 07:30 12/03/17 07:54 12/03/17 08:00 Temperature 98.0 F Pulse Rate 115 H 121 H Respiratory Rate 24 24 25 H Blood Pressure 120/95 H 137/99 H Pulse Oximetry 94 L 12/03/17 08:30 12/03/17 08:34 12/03/17 09:00 Temperature Pulse Rate 133 H 132 H 135 H Respiratory Rate 26 H 27 H 25 H Blood Pressure 147/102 H 140/99 H 139/98 H Pulse Oximetry 16 L 12/03/17 09:30 12/03/17 10:00 12/03/17 10:30 Temperature Pulse Rate 109 H 106 H 105 H Respiratory Rate 16 16 16 Blood Pressure 85/63 L 103/61 101/68 Pulse Oximetry 100 100 100 12/03/17 11:00 12/03/17 11:31 12/03/17 11:36 Temperature Pulse Rate 110 H 103 H 103 H Respiratory Rate 16 16 16 Blood Pressure 108/73 84/51 L 90/54 L Pulse Oximetry 100 100 100 12/03/17 11:38 12/03/17 12:00 Temperature 98.0 F Pulse Rate 102 H Respiratory Rate 16 16 Blood Pressure 124/77 Pulse Oximetry 100 100 Intake & Output 12/02/17 12/03/17 12/03/17 18:59 06:59 18:59 Intake Total 1418.8 / 1418.8 866 / 866 250 / 250 Output Total 870 / 870 400 / 400 Balance 548.8 / 548.8 466 / 466 250 / 250 Weight 64 kg Intake: IV 1268.8 / 1268.8 200 / 200 250 / 250 Versed Inj 50 mg In 50 ml @ 2 68.8 / 68.8 100 / 100 50 / 50 MG/HR 2 mls/hr IV.CONT TITRATE PRN Rx#:[id number] Diprivan 1000 mg/100 ml Inj 1, 100 / 100 000 mg In 100 ml @ 5 MCG/KG/MIN 1.89 mls/hr IV.CONT TITRATE PRN Rx#:[id number] D10W Inj 1,000 ML @ 30 mls/hr 1000 / 1000 IV.SIG .Q24H [facility] Rx#:[id number] Merrem Inj 1,000 MG In NS Inj 200 / 200 100 / 100 100 / 100 100 ML @ 200 mls/hr IV.SIG Q8H [facility] Rx#:[id number] Tube Feeding 150 / 150 416 / 416 Water Bolus Amount 250 / 250 Output: Urine 850 / 850 Stool 20 / 20 250 / 250 Urine Amount (Catheter) 150 / 150 Condom 150 / 150 Other: Date of Last Bowel Movement 12/02/17 12/03/17 11/29/17 12:00 Blood - Peripheral Aerobic Blood Culture - Preliminary No growth in 4 days 11/29/17 12:00 Blood - Peripheral Anaerobic Blood Culture - Preliminary No growth in 4 days 11/29/17 11:55 Blood - Peripheral Aerobic Blood Culture - Preliminary No growth in 4 days 11/29/17 11:55 Blood - Peripheral Anaerobic Blood Culture - Preliminary No growth in 4 days Lab - Hematology Results 12/02/17 12/03/17 04:00 03:26 WBC 4.2 4.8 RBC 4.63 4.60 Hgb 13.6 13.5 Hct 41.4 40.8 MCV 89.4 88.8 MCH 29.4 29.4 MCHC 32.8 33.1 RDW 14.6 14.6 Plt Count 180 215 MPV 9.6 10.0 Neut % (Auto) 76.9 H 74.3 H Lymph % (Auto) 13.0 11.6 [place] % (Auto) 7.5 8.6 H Eos % (Auto) 1.7 4.5 H Baso % (Auto) 0.9 1.0 Neut # (Auto) 3.2 3.5 Lymph # (Auto) 0.5 L 0.6 L [place] # (Auto) 0.3 0.4 Eos # (Auto) 0.1 0.2 Baso # (Auto) 0.0 0.0 WBC Differential . . Differential Comment Auto diff final Auto diff final Lab - Chemistry Results 12/01/17 12/01/17 12/02/17 17:55 23:56 04:00 Sodium 138 Potassium 3.6 Chloride 101 Carbon Dioxide 31.5 Anion Gap 6 BUN 30 H Creatinine 1.06 Estimated GFR 87 L POC Glucose 90 96 Random Glucose 100 Calcium 8.2 L Phosphorus 2.2 L Magnesium 1.8 12/02/17 12/02/17 12/02/17 05:07 07:37 16:34 Sodium Potassium Chloride Carbon Dioxide Anion Gap BUN Creatinine Estimated GFR POC Glucose 96 106 120 H Random Glucose Calcium Phosphorus Magnesium 12/03/17 12/03/17 12/03/17 00:27 03:26 11:03 Sodium 138 Potassium 3.8 Chloride 100 Carbon Dioxide 31.6 Anion Gap 6 BUN 34 H Creatinine 1.02 Estimated GFR Greater than 89 POC Glucose 115 H 104 Random Glucose 134 H Calcium 7.7 L Phosphorus Magnesium Imaging: ITS Impressions Abdomen/Pelvis CT 11/19/17 03:55 CONCLUSION: 1. Limited, suboptimal examination performed without intravenous or oral contrast. The study is degraded by motion artifact as well. 2. Abnormal bowel gas pattern with multiple small air-fluid levels. The bowel is suboptimally visualized and evaluated secondary to the lack of the intravenous and oral contrast as well as diffuse ascites. This may represent a gastroenteritis and/or ileus. Obstruction is less likely. 3. Diffuse ascites throughout the abdomen and pelvis. 4. Moderate size right effusion which is increased from the prior study. There is a new small left effusion. 5. Moderate cardiomegaly. 6. No definite gallstones identified. Head CT 11/19/17 03:55 CONCLUSION: 1. No acute hemorrhage or mass effect. 2. Mild motion and streak artifact. . Chest X-Ray 11/27/17 08:49 CONCLUSION: 1. Mild to moderate pulmonary vascular congestion. 2. Cardiomegaly. 3. Tiny bilateral pleural effusions. 4. Multiple tubes and lines are stable. Physical Exam: GENERAL: Sedated, on the vent, looks comfortable SKIN: Cool and dry. No generalized rash. HEAD: Atraumatic. Normocephalic. No temporal wasting, or tenderness. EYES: [place] conjunctiva. No petechia or hemorrhage. Has mild conjunctival injection. Pupils equal, round and reactive to light. No scleral icterus. EARS, NOSE AND THROAT: Nose without bleeding or purulent nasal discharge. He is orally intubated. Seems to have swelling of lips NECK: Trachea midline. Supple and not tender, no meningeal signs CARDIOVASCULAR: Irregular rate and rhythm. No murmurs, rubs or gallops heard. Sternotomy scar compatible with surgical history. RESPIRATORY: Coarse breath sounds bilaterally, decreased at the bases. ABDOMEN: Soft, non-tender, nondistended. Bowel sounds present and normoactive. No guarding. No rebound. No organomegaly. EXTREMITIES: No clubbing, cyanosis, or edema.No joint effusion, has good ROM. No calf tenderness. Well perfused and warm. NEUROLOGICAL: Sedated. PSYCHIATRIC: Unable to assess LINE: No evidence of infection, has RSC TLC : Condom cath in place, urine looks ok. Assessment and Plan - Plan Impression Fevers since 11/28, has been on vent since 11/19 - temps better - has HCAP/VAP, C/S with Enterobacter and Klebsiella - UTI, UC with E coli ESBL+ Kleb and Enterobacter PNA E coli ESBL UTI Respiratory failure, CHF, PNA Cardiomyopathy, EF <10% Prior MV repair Active cocaine use Newly Dx HIV, CD4 count 60 S/P renal failure, had 2 HD, renal function improved Recommendation Change Meropenem to INvanxz and complete 14 dyas Rx Monitor temps Monitor progress Weaning as tolerated per CCM
--- NOTE | 2017-12-03 13:41 | P.PNPAL ---
Reason for Visit Reason for visit: a. To assist with evaluation and management of symptoms including: Altered mental status, edema b. To assist medical decision maker(s) with: better understanding of current medical conditions; weighing benefits/burdens of medical treatment options; making medical treatment decisions. Subjective Subjective/Interval History: Follow up medically necessary for symptom management and further clarification of goals of care. Patient seen and examined on MICU. Patient remains intubated , sedated on mechanical ventilation. Patient remains on FIO2 35% and is still failing CPAP trials. No CPAP trial today per bedside RN. Patient sedated on Midazolam infusion at 10mg/hr and Propofol infusion at 10 mcg/kg/min. Patient continues on Milrinone infusion at 0.25mcg/kg/min. Patient continues to have asymptomatic 4+ beat runs of V.tach per bedside RN. 2+ Edema noted to BUE and trace edema to bilateral lower extremities. Patient is on Furosemide 40mg IVP daily. Telephone conversation with patient`s mother and sister Kaylie. Updated them on patient`s current medical condition and discussed further regarding goals of care since patient has not been tolerating CPAP trials and has other medical complications. Discussed whether family still wants to proceed with compassionate withdrawal from life support as discussed in previous meeting. Patient`s mother is struggling with compassionate withdrawal from life support and has indicated that she wants to proceed with tracheotomy and PEG tube placement. Expressed concern regarding further complications from multiple ongoing comorbidities that patient will be faced with. Case discussed with bedside RN, and Dr. Bee. Advance Directives Living Will: Never completed Health Care Surrogate: Never completed Durable Power of Ruling Technician: Never completed Health Care Surrogate Name and Number: HCP: Mother-Angelina Medina [phone] Objective Vital Signs: Vital Signs 12/02/17 14:00 12/02/17 14:04 12/02/17 14:33 Temperature Pulse Rate 96 H 97 H 93 H Respiratory Rate 18 16 16 Blood Pressure 96/61 L 72/49 L Pulse Oximetry 99 99 98 12/02/17 14:50 12/02/17 15:00 12/02/17 15:30 Temperature Pulse Rate 92 H 94 H 98 H Respiratory Rate 16 16 16 Blood Pressure 103/69 106/73 105/74 Pulse Oximetry 100 100 100 12/02/17 15:37 12/02/17 16:00 12/02/17 20:00 Temperature 98.2 F 98.6 F Pulse Rate 97 H 109 H Respiratory Rate 25 H 16 23 Blood Pressure 101/72 115/78 Pulse Oximetry 99 100 100 12/02/17 20:39 12/02/17 23:30 12/02/17 23:40 Temperature Pulse Rate 109 H Respiratory Rate 23 16 16 Blood Pressure 113/77 Pulse Oximetry 100 99 98 12/03/17 00:00 12/03/17 00:30 12/03/17 01:00 Temperature 98.4 F Pulse Rate 109 H 110 H 107 H Respiratory Rate 16 16 16 Blood Pressure 119/83 121/82 107/77 Pulse Oximetry 99 98 100 12/03/17 01:30 12/03/17 02:00 12/03/17 02:30 Temperature Pulse Rate 106 H 107 H 106 H Respiratory Rate 16 16 16 Blood Pressure 122/83 124/88 121/81 Pulse Oximetry 99 99 100 12/03/17 03:00 12/03/17 03:30 12/03/17 03:35 Temperature Pulse Rate 106 H 104 H Respiratory Rate 16 16 16 Blood Pressure 113/82 107/75 Pulse Oximetry 100 98 99 12/03/17 04:00 12/03/17 04:30 12/03/17 05:00 Temperature 98.4 F Pulse Rate 104 H 103 H 112 H Respiratory Rate 16 16 23 Blood Pressure 117/85 116/84 155/104 H Pulse Oximetry 100 100 99 12/03/17 05:05 12/03/17 05:30 12/03/17 06:00 Temperature Pulse Rate 113 H 112 H 108 H Respiratory Rate 17 17 16 Blood Pressure 139/94 H 130/93 H 112/75 Pulse Oximetry 99 99 96 12/03/17 06:30 12/03/17 06:56 12/03/17 07:00 Temperature Pulse Rate 98 H 96 H 104 H Respiratory Rate 16 16 18 Blood Pressure 92/68 L 97/67 L 111/80 Pulse Oximetry 92 L 95 96 12/03/17 07:30 12/03/17 07:54 12/03/17 08:00 Temperature 98.0 F Pulse Rate 115 H 121 H Respiratory Rate 24 24 25 H Blood Pressure 120/95 H 137/99 H Pulse Oximetry 94 L 12/03/17 08:30 12/03/17 08:34 12/03/17 09:00 Temperature Pulse Rate 133 H 132 H 135 H Respiratory Rate 26 H 27 H 25 H Blood Pressure 147/102 H 140/99 H 139/98 H Pulse Oximetry 16 L 12/03/17 09:30 12/03/17 10:00 12/03/17 10:30 Temperature Pulse Rate 109 H 106 H 105 H Respiratory Rate 16 16 16 Blood Pressure 85/63 L 103/61 101/68 Pulse Oximetry 100 100 100 12/03/17 11:00 12/03/17 11:31 12/03/17 11:36 Temperature Pulse Rate 110 H 103 H 103 H Respiratory Rate 16 16 16 Blood Pressure 108/73 84/51 L 90/54 L Pulse Oximetry 100 100 100 12/03/17 11:38 12/03/17 12:00 Temperature 98.0 F Pulse Rate 102 H Respiratory Rate 16 16 Blood Pressure 124/77 Pulse Oximetry 100 100 Intake & Output 12/02/17 12/03/17 12/03/17 18:59 06:59 18:59 Intake Total 1418.8 / 1418.8 866 / 866 250 / 250 Output Total 870 / 870 400 / 400 Balance 548.8 / 548.8 466 / 466 250 / 250 Weight 64 kg Intake: IV 1268.8 / 1268.8 200 / 200 250 / 250 Versed Inj 50 mg In 50 ml @ 2 68.8 / 68.8 100 / 100 50 / 50 MG/HR 2 mls/hr IV.CONT TITRATE PRN Rx#:[id number] Diprivan 1000 mg/100 ml Inj 1, 100 / 100 000 mg In 100 ml @ 5 MCG/KG/MIN 1.89 mls/hr IV.CONT TITRATE PRN Rx#:[id number] D10W Inj 1,000 ML @ 30 mls/hr 1000 / 1000 IV.SIG .Q24H RUDDY Rx#:[id number] Merrem Inj 1,000 MG In NS Inj 200 / 200 100 / 100 100 / 100 100 ML @ 200 mls/hr IV.SIG Q8H RUDDY Rx#:[id number] Tube Feeding 150 / 150 416 / 416 Water Bolus Amount 250 / 250 Output: Urine 850 / 850 Stool 20 / 20 250 / 250 Urine Amount (Catheter) 150 / 150 Condom 150 / 150 Other: Date of Last Bowel Movement 12/02/17 12/03/17 Physical Exam: CONSTITUTIONAL/GENERAL: This is an adequately nourished patient, intubated, sedated, in no apparent distress. TUBES/LINES/DRAINS: right subclavian central line, ETT, Condom catheter,OGT, . SKIN: No jaundice, rashes, or lesions. No wounds seen anteriorly. Skin temperature appropriate. Not diaphoretic. HEAD: Atraumatic. Normocephalic. EYES: Pupils equal and round and sluggishly reactive. No scleral icterus. No injection or drainage. Fundi not examined. ENT: Nose without bleeding or purulent drainage. Orally intubated. NECK: Trachea midline. Supple, nontender. CARDIOVASCULAR: S1, S2, S3. Irregular rhythm, controlled rate without gallops, or rubs. Soft 1/6 systolic ejection murmur. No JVD. Pedal pulses+ve by doppler RESPIRATORY/CHEST: Symmetric, unlabored respirations. Rhonchi to auscultation. GASTROINTESTINAL: Abdomen soft, nondistended. Intermittent BS. OGT with TF infusing at 35ml.hr-Has a rectal bag with liquid stool GENITOURINARY: Without palpable bladder distension. Condom catheter MUSCULOSKELETAL: Extremities without clubbing or cyanosis, trace edema to BLE, 2 + to BUE. No mottling or clubbing. NEUROLOGICAL: Intubated, moves all 4 extremities to command. PSYCHIATRIC: Unable to assess. Currently sedated and calm. . Diagnostic Tests Laboratory: Laboratory Results - last 72 hr 11/29/17 12/01/17 12/01/17 11:55 04:42 04:42 WBC 4.3 RBC 4.49 L Hgb 13.1 Hct 40.3 MCV 89.8 MCH 29.2 MCHC 32.5 RDW 15.1 Plt Count 170 MPV 9.4 Neut % (Auto) 73.7 H Lymph % (Auto) 14.9 Woods % (Auto) 7.6 Eos % (Auto) 3.4 Baso % (Auto) 0.4 Neut # (Auto) 3.2 Lymph # (Auto) 0.6 L Woods # (Auto) 0.3 Eos # (Auto) 0.1 Baso # (Auto) 0.0 WBC Differential . Differential Comment Auto diff final Sodium 140 Potassium 3.7 Chloride 103 Carbon Dioxide 32.2 H Anion Gap 5 BUN 29 H Creatinine 0.96 Estimated GFR Greater than 89 POC Glucose Random Glucose 103 Calcium 7.6 L Phosphorus 1.9 L Magnesium 1.9 Absolute Lymphocytes 647 L % CD3 Cells 84 Absolute CD3 Count 545 L % CD3-/CD16+/CD56+ 6 Abs CD3-/CD16+/CD56+ 38 L % CD4 Cells 9 L Absolute CD4 Count 60 L T-Help/Suppress Ratio 0.10 L % CD8 Cells 75 H Absolute CD8 Count 504 % CD19 Cells 9 Absolute CD19 Count 53 L 12/01/17 12/01/17 12/01/17 11:46 17:55 23:56 WBC RBC Hgb Hct MCV MCH MCHC RDW Plt Count MPV Neut % (Auto) Lymph % (Auto) Woods % (Auto) Eos % (Auto) Baso % (Auto) Neut # (Auto) Lymph # (Auto) Woods # (Auto) Eos # (Auto) Baso # (Auto) WBC Differential Differential Comment Sodium Potassium Chloride Carbon Dioxide Anion Gap BUN Creatinine Estimated GFR POC Glucose 121 H 90 96 Random Glucose Calcium Phosphorus Magnesium Absolute Lymphocytes % CD3 Cells Absolute CD3 Count % CD3-/CD16+/CD56+ Abs CD3-/CD16+/CD56+ % CD4 Cells Absolute CD4 Count T-Help/Suppress Ratio % CD8 Cells Absolute CD8 Count % CD19 Cells Absolute CD19 Count 12/02/17 12/02/17 12/02/17 04:00 04:00 05:07 WBC 4.2 RBC 4.63 Hgb 13.6 Hct 41.4 MCV 89.4 MCH 29.4 MCHC 32.8 RDW 14.6 Plt Count 180 MPV 9.6 Neut % (Auto) 76.9 H Lymph % (Auto) 13.0 Woods % (Auto) 7.5 Eos % (Auto) 1.7 Baso % (Auto) 0.9 Neut # (Auto) 3.2 Lymph # (Auto) 0.5 L Woods # (Auto) 0.3 Eos # (Auto) 0.1 Baso # (Auto) 0.0 WBC Differential . Differential Comment Auto diff final Sodium 138 Potassium 3.6 Chloride 101 Carbon Dioxide 31.5 Anion Gap 6 BUN 30 H Creatinine 1.06 Estimated GFR 87 L POC Glucose 96 Random Glucose 100 Calcium 8.2 L Phosphorus 2.2 L Magnesium 1.8 Absolute Lymphocytes % CD3 Cells Absolute CD3 Count % CD3-/CD16+/CD56+ Abs CD3-/CD16+/CD56+ % CD4 Cells Absolute CD4 Count T-Help/Suppress Ratio % CD8 Cells Absolute CD8 Count % CD19 Cells Absolute CD19 Count 12/02/17 12/02/17 12/03/17 07:37 16:34 00:27 WBC RBC Hgb Hct MCV MCH MCHC RDW Plt Count MPV Neut % (Auto) Lymph % (Auto) Woods % (Auto) Eos % (Auto) Baso % (Auto) Neut # (Auto) Lymph # (Auto) Woods # (Auto) Eos # (Auto) Baso # (Auto) WBC Differential Differential Comment Sodium Potassium Chloride Carbon Dioxide Anion Gap BUN Creatinine Estimated GFR POC Glucose 106 120 H 115 H Random Glucose Calcium Phosphorus Magnesium Absolute Lymphocytes % CD3 Cells Absolute CD3 Count % CD3-/CD16+/CD56+ Abs CD3-/CD16+/CD56+ % CD4 Cells Absolute CD4 Count T-Help/Suppress Ratio % CD8 Cells Absolute CD8 Count % CD19 Cells Absolute CD19 Count 12/03/17 12/03/17 12/03/17 03:26 03:26 11:03 WBC 4.8 RBC 4.60 Hgb 13.5 Hct 40.8 MCV 88.8 MCH 29.4 MCHC 33.1 RDW 14.6 Plt Count 215 MPV 10.0 Neut % (Auto) 74.3 H Lymph % (Auto) 11.6 Woods % (Auto) 8.6 H Eos % (Auto) 4.5 H Baso % (Auto) 1.0 Neut # (Auto) 3.5 Lymph # (Auto) 0.6 L Woods # (Auto) 0.4 Eos # (Auto) 0.2 Baso # (Auto) 0.0 WBC Differential . Differential Comment Auto diff final Sodium 138 Potassium 3.8 Chloride 100 Carbon Dioxide 31.6 Anion Gap 6 BUN 34 H Creatinine 1.02 Estimated GFR Greater than 89 POC Glucose 104 Random Glucose 134 H Calcium 7.7 L Phosphorus Magnesium Absolute Lymphocytes % CD3 Cells Absolute CD3 Count % CD3-/CD16+/CD56+ Abs CD3-/CD16+/CD56+ % CD4 Cells Absolute CD4 Count T-Help/Suppress Ratio % CD8 Cells Absolute CD8 Count % CD19 Cells Absolute CD19 Count Result Diagrams: 12/04/17 04:54 12/04/17 04:54 Microbiology: Microbiology 11/29/17 12:00 Aerobic Blood Culture - Preliminary Blood - Peripheral No growth in 4 days Anaerobic Blood Culture - Preliminary No growth in 4 days 11/29/17 11:55 Aerobic Blood Culture - Preliminary Blood - Peripheral No growth in 4 days Anaerobic Blood Culture - Preliminary No growth in 4 days Procedures: 11/19/2017: Right radial arterial line placement 11/19/2017: Endotracheal intubation 11/19/2017: Right subclavian triple-lumen catheter placement 11/19/2017 right IJ dialysis catheter placement Dc`d 11/26/17 . 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 He was never and has no children. He was previously in the [employer]. 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 Legal: No living will or healthcare surrogate completed. Ethical issues impacting care: None noted. . Important Contacts: Mother: Angelina Medina healthcare proxy- Currently living with daughter, Kaylie Gama. Sister: Bryan Sharp Sister: Kamille Verdugo Brother: Segundo Lucina Brother: Carter Chavez Sister: Kaylie Gama - , C [phone] . Prognosis: His prognosis is poor. He has end-stage heart disease now with an ejection fraction estimated to be less than 10% by social sciences chair echo. He has suffered a decline in heart function since June 2017 when echocardiogram showed a 50-55% ejection fraction at the time of mitral valve repair. Patient continued to abuse cocaine and possibly other substances and when seen in [place] September 2017 for chest pain was found to have non-ischemic cardiomyopathy with a normal coronary artery circulation and ejection fraction of 20-25%. Echocardiogram at this admission shows cardiogenic shock with an EF less than 10%. He is now requiring inotropic support with milrinone and now has acute kidney injury requiring dialysis for both hyperkalemia and fluid overload. At this time he remains on life support, intubated, but is at elevated risk for continued complications and decline. He would be hospice appropriate if goals were consistent. . Code Status: No Code DNR (Do not reintubate) Plan: PLAN: Legal decision maker: At this time the patient is not capacitated for decision making and it is not certain that he will ever regain capacity. He was never and has no children. His mother would be his proxy decision maker per [place] statutes. She had previously been reported to me as demented and unable to make these decisions, however, her daughter, Kaylie, who is her caregiver disputes that and states that her mother is perfectly capable of making these decisions and wishes to be her son's decision-maker. In conversation with Ms. Medina, herself, she appeared appropriate and capable of decision-making. Goals: Aggressive short of no code. Telephone discussion with patient`s mother and sister Kaylie. Updated them on patient`s current medical status that patient is not showing improvement in regards to failing CPAP trial, infection and other underlying medical problems mainly cardiac. Expressed concern that patient will most likely continue to face more complications with minimal chance of meaningful recovery. Family have decided to proceed with tracheotomy and PEG tube placement. CODE STATUS: DO NOT RESUSCITATE SYMPTOMS: * Altered mental status: Presented with altered mental status, positive for cocaine, hypoglycemic, hyperkalemic, in fulminant heart failure, minimally able to make his needs known. Shortly thereafter he required intubation and sedation. Bedside critical care echo showed severe biventricular dysfunction with EF less than 10%, aortic valve opening only minimally due to low flow. HIV positive-CD4 count 60. Gets agitated when sedation is weaned. Remains on Midazolam 10mg/hr and on Propofol at 10mcg/kg/min * Edema: Edema is improving on hemodialysis, which is on hold after today's ultrafiltration as patient's renal status is stabilizing and is having some urine output. Given his severe heart failure, borderline hypotension and impaired renal function, this is likely to be an ongoing problem. Last hemodialysis on 11/23. Edema currently managed with Furosemide 40mgIVP daily. Elevate BLE. Monitor I &Os. Palliative care will continue to follow the patient during hospital course as condition evolves, to assist patient/decision-maker with understanding of their medical conditions, weighing benefits/burdens of treatment options, for clarification of goals of treatment. Additionally will assist with any symptoms of palliative concern. . Attestation Attestation: To help prompt me to consider important information that might be impacting today's encounter and assessment, information from prior notes written by myself or my colleagues may have been "brought forward" into today's note. My signature on this note, however, is an attestation that I personally performed the exam, history, and/or decision-making noted today, and, unless otherwise indicated, the interactions with patient, family, and staff as well as the review of records all occurred today. I also attest that the listed assessment and stated plan reflect my best clinical judgment today based on the combination of historical information, prior notes, and today's exam/ interactions. When time spent is documented, it refers only to time spent today by the signer, or if indicated, combined time spent today by collaborating physician/nurse practitioner.
[2017-12-03] MEDS: Dextrose 10% in Water Inj 1,000 ML IV.SIG SCH (20:31)
[2017-12-04] MEDS: Insulin NovoLIN Regular Correctional Sugar Inj SQ SCH ×4 (00:18→19:40)
[2017-12-04] MEDS: Midazolam 50 MG/50 ML Inj 50 MG/50 ML BAG IV.CONT PRN (02:10)
[2017-12-04 05:13] LABS: Eos # (Auto) 0.2 th/mm3 (0.0-0.4); Eos % (Auto) 5.2 % (0.0-4.0); Hematocrit 38.6 % (39.0-51.0); Hemoglobin 12.9 gm/dL (13.0-17.0); Lymph # (Auto) 0.4 th/mm3 (1.0-4.8); Lymph % (Auto) 9.3 % (9.0-44.0); Mean Corpuscular HGB Conc 33.3 % (32.0-36.0); Mean Corpuscular Hemoglobin 29.4 pg (27.0-34.0); Mean Corpuscular Volume 88.2 fL (80.0-100.0); Mean Platelet Volume 9.6 fL (7.0-11.0); Mono # (Auto) 0.3 th/mm3 (0.0-0.9); Mono % (Auto) 7.6 % (0.0-8.0); Neut # (Auto) 3.2 th/mm3 (1.8-7.7); Neut % (Auto) 76.9 % (16.0-70.0); Platelet Count 206 th/mm3 (150-450); Red Blood Count 4.38 mil/mm3 (4.50-5.90); Red Cell Distribution Width 14.6 % (11.6-17.2); White Blood Count 4.2 th/mm3 (4.0-11.0)
[2017-12-04 05:41] LABS: Anion Gap 5 meq/L (5-15); Blood Urea Nitrogen 31 mg/dL (7-18); Calcium 7.6 mg/dL (8.5-10.1); Carbon Dioxide 30.1 meq/L (21.0-32.0); Chloride 103 meq/L (98-107); Glomerular Filtration Rate Greater Than 89 mL/min (>89); Glucose,Random 84 mg/dL (74-106); Potassium 3.5 meq/L (3.5-5.1); Sodium 138 meq/L (136-145)
[2017-12-04] MEDS: Heparin - SQ 10,000 UNITS/ML Vial SQ SCH ×3 (05:56→22:42)
[2017-12-04] MEDS: Propofol 1000 mg/100 ml Inj 1,000 MG/100 ML BOTTLE IV.CONT PRN (05:57)
[2017-12-04] MEDS: Milrinone Inj 20 MG in Sodium Chlor 0.9% Inj 80 ML IV.CONT SCH ×2 (06:58→14:00)
--- NOTE | 2017-12-04 07:53 | P.PNCC ---
Subjective Subjective Remarks/Hospital Course: 11/19: This is a 57yM with history of cardiomyopathy and an EF 20% who recently underwent mitral valve repair for severe MR. At that time, he had a preserved LVEF. However, he continued to use illicit cocaine, and on subsequent hospital admissions, his EF had fallen to 20%. He represents today with altered mental status, endorsing cocaine use. On further evaluation, he has a potassium of 7, Cr 2.4, AST/ALT 200/72, CK 1302, BNP 4307, co2 14. On my evaluation he is obtunded and agonally breathing, intermittently tachypneic. I performed bedside critical care echo which demonstrated a severe biventricular dysfunction and an EF < 10%. there was spontaneous echo contrast in the LV and the aortic valve appeared to open only minimally due to low-flow. Patient is grossly anasarcic with 3+ edema bilaterally up to the abdomen. he has JVD above the level of the mandible. I emergently intubated the patient (see separate procedure note for details). I emergently placed arterial, central lines, and dialysis catheter. potassium did not improve with medical therapy. we consulted nephrology for emergent HD. I also placed the patient on epinephrine drip for cardiogenic shock. due to the patient's mental status and clinical status, no additional information is available from him. ROS unobtainable. 11/20: Remains sedated, orally intubated on mechanical ventilation. Dialyzed this morning. Remains on pressors. 11/21: Remains sedated, orally intubated on mechanical ventilation. Hypothermic this morning. 11/22: Remains sedated, orally intubated on mechanical ventilation. Dialysis scheduled today. 11/23: Remains sedated, orally intubated on mechanical ventilation. On milrinone. 11/24, 11/25: Remains sedated, orally intubated on mechanical ventilation. Tolerating tube feeds. 11/26: Sedated, orally intubated on mechanical ventilation. Tolerating tube feeds. 11/27 No events overnight. Sedated with Versed and intubated. On Milrinone drip. 11/28 Patient remains intubated and sedated with Versed. On Milrinone drip. T: 99.7 yesterday. Had 7 runs of asymptomatic Vtach overnight. 11/29 Patient is sedated with Versed and intubated. Remains on Milrinone. T: 100.4 last night. Had 1 run (6 beats) asymptomatic Vtach overnight. Gets tachycardic and tachypneic with CPAP trials. 11/30 Patient remains sedated and intubated. T:100.4 last night. Not tolerating CPAP trials. 12/01 No events overnight. T:100.0 last night. Sedated with versed and on Milrinone. 12/02 Patient remains intubated and sedated. T;100.0 last night. On Versed and Diprivan infusion for sedation. Not tolerating CPAP trials. 12/03 No events overnight. Sedated and intubated. On Milrinone. Afebrile. 12/04 Patient remains sedated and intubated. Afebrile. Objective Vital Signs / I&O: Vital Signs 12/03/17 07:54 12/03/17 08:00 12/03/17 08:30 Temperature 98.0 F Pulse Rate 121 H 133 H Respiratory Rate 24 25 H 26 H Blood Pressure 137/99 H 147/102 H Pulse Oximetry 16 L 12/03/17 08:34 12/03/17 09:00 12/03/17 09:30 Temperature Pulse Rate 132 H 135 H 109 H Respiratory Rate 27 H 25 H 16 Blood Pressure 140/99 H 139/98 H 85/63 L Pulse Oximetry 100 12/03/17 10:00 12/03/17 10:30 12/03/17 11:00 Temperature Pulse Rate 106 H 105 H 110 H Respiratory Rate 16 16 16 Blood Pressure 103/61 101/68 108/73 Pulse Oximetry 100 100 100 12/03/17 11:31 12/03/17 11:36 12/03/17 11:38 Temperature Pulse Rate 103 H 103 H Respiratory Rate 16 16 16 Blood Pressure 84/51 L 90/54 L Pulse Oximetry 100 100 100 12/03/17 12:00 12/03/17 13:01 12/03/17 14:00 Temperature 98.0 F Pulse Rate 102 H 96 H 101 H Respiratory Rate 16 16 22 Blood Pressure 124/77 102/55 L 119/82 Pulse Oximetry 100 100 94 L 12/03/17 15:00 12/03/17 16:00 12/03/17 16:42 Temperature Pulse Rate 100 H 101 H Respiratory Rate 23 16 16 Blood Pressure 125/85 Pulse Oximetry 98 100 12/03/17 17:00 12/03/17 18:00 12/03/17 19:00 Temperature Pulse Rate 100 H 100 H 95 H Respiratory Rate 16 16 16 Blood Pressure 87/57 L 93/57 L 92/60 L Pulse Oximetry 100 100 100 12/03/17 20:00 12/03/17 20:05 12/03/17 23:25 Temperature 98.9 F Pulse Rate 104 H Respiratory Rate 16 22 16 Blood Pressure 110/88 Pulse Oximetry 100 95 96 12/04/17 00:00 12/04/17 04:00 12/04/17 04:05 Temperature 97.8 F 97.8 F Pulse Rate 91 H 100 H Respiratory Rate 16 16 17 Blood Pressure 113/76 118/80 Pulse Oximetry 100 100 96 Intake & Output 12/03/17 12/04/17 12/04/17 18:59 06:59 18:59 Intake Total 926 / 926 1387 / 1387 Output Total 825 / 825 1300 / 1300 Balance 101 / 101 87 / 87 Weight 64 kg Intake: IV 300 / 300 850 / 850 Versed Inj 50 mg In 50 ml @ 2 100 / 100 50 / 50 MG/HR 2 mls/hr IV.CONT TITRATE PRN Rx#:[id number] Primacor Inj 20 MG In NS Inj 80 100 / 100 ML @ 0.5 MCG/KG/MIN 10.5 mls/ hr IV.CONT .Q9H32M [facility] Rx#: [id number] Diprivan 1000 mg/100 ml Inj 1, 100 / 100 100 / 100 000 mg In 100 ml @ 5 MCG/KG/MIN 1.89 mls/hr IV.CONT TITRATE PRN Rx#:[id number] D10W Inj 1,000 ML @ 30 mls/hr 500 / 500 IV.SIG .Q24H [facility] Rx#:[id number] INVanz Inj 1,000 MG In NS Inj 100 / 100 100 ML @ 100 mls/hr IV.SIG Q24H [facility] Rx#:[id number] Merrem Inj 1,000 MG In NS Inj 100 / 100 100 ML @ 200 mls/hr IV.SIG Q8H [facility] Rx#:[id number] Tube Feeding 506 / 506 417 / 417 Water Bolus Amount 120 / 120 120 / 120 Output: Stool 800 / 800 Urine Amount (Catheter) 825 / 825 500 / 500 Condom 825 / 825 500 / 500 Other: Date of Last Bowel Movement 12/04/17 Result Diagrams: 12/04/17 04:54 12/04/17 04:54 Other Results: Laboratory Results - last 12 hr 12/03/17 12/04/17 12/04/17 23:51 04:54 04:54 WBC 4.2 RBC 4.38 L Hgb 12.9 L Hct 38.6 L MCV 88.2 MCH 29.4 MCHC 33.3 RDW 14.6 Plt Count 206 MPV 9.6 Neut % (Auto) 76.9 H Lymph % (Auto) 9.3 Cassia % (Auto) 7.6 Eos % (Auto) 5.2 H Baso % (Auto) 1.0 Neut # (Auto) 3.2 Lymph # (Auto) 0.4 L Cassia # (Auto) 0.3 Eos # (Auto) 0.2 Baso # (Auto) 0.0 WBC Differential . Differential Comment Auto diff final Sodium 138 Potassium 3.5 Chloride 103 Carbon Dioxide 30.1 Anion Gap 5 BUN 31 H Creatinine 0.91 Estimated GFR Greater than 89 POC Glucose 120 H Random Glucose 84 Calcium 7.6 L Imaging: Abdomen/Pelvis CT 11/19/17 03:55 CONCLUSION: 1. Limited, suboptimal examination performed without intravenous or oral contrast. The study is degraded by motion artifact as well. 2. Abnormal bowel gas pattern with multiple small air-fluid levels. The bowel is suboptimally visualized and evaluated secondary to the lack of the intravenous and oral contrast as well as diffuse ascites. This may represent a gastroenteritis and/or ileus. Obstruction is less likely. 3. Diffuse ascites throughout the abdomen and pelvis. 4. Moderate size right effusion which is increased from the prior study. There is a new small left effusion. 5. Moderate cardiomegaly. 6. No definite gallstones identified. Head CT 11/19/17 03:55 CONCLUSION: 1. No acute hemorrhage or mass effect. 2. Mild motion and streak artifact. . Chest X-Ray 11/27/17 08:49 CONCLUSION: 1. Mild to moderate pulmonary vascular congestion. 2. Cardiomegaly. 3. Tiny bilateral pleural effusions. 4. Multiple tubes and lines are stable. Objective Remarks: GENERAL: Patient is 57 yo intubated and sedated SKIN: Warm and dry. HEAD: Normocephalic. EYES: No scleral icterus. No injection or drainage. NECK: Supple, trachea midline. No JVD or lymphadenopathy. CARDIOVASCULAR: Regular rate and rhythm without murmurs, gallops, or rubs. RESPIRATORY: Breath sounds equal bilaterally. No accessory muscle use. GASTROINTESTINAL: Abdomen soft, non-tender, nondistended. MUSCULOSKELETAL: No cyanosis, or edema. Neuro: Sedated Assessment and Plan - Assessment and Plan Plan: Plan by systems: Neurologic: Acute toxic encephalopathy Acute cocaine intoxication Acute metabolic encephalopathy secondary to shock On Versed/Diprivan drips for sedation. Daily sedation vacation. Monitor neuro status. Respiratory: Acute hypoxic and hypercarbic respiratory failure Acute severe pulmonary edema Probable Crack Lung Continue with vent support keep sats >92% On PRVC RR 16, TV550, IT:1.1, PEEP:5, FIO2: 30% Bronchodilators. SBT daily as maria elena. Patient is not tolerating CPAP trials- gets apneic, tachycardic and tachypneic. CXR today showed improved aeration of lung Palliative care spoke to family and now leaning toward trach/PEG. Spoke to patient's sister Kaylie today updated her on patient's condition and she states that he family will make final decision on trach/PEG vs transition to comfort care on Saturday. Cardiovascular: s/p Cardiogenic shock Acute severe systolic congestive heart failure exacerbation Acute type II non-ST elevation myocardial infarction secondary to demand ischemia known prior EF 20% (09/2017), Echo 11/27: EF <20%, mod- severe MR, PAP 53.9mmHg likely secondary to chronic cocaine use superimposed on cardiomyopathy. Monitor HR and BP keep MAP>65mmHg. on Coreg 3.125mg BID. add Lisinopril 5mg daily On Milrinone drip. Lactic acid resolved 1.1 on 11/20 Renal: Acute kidney injury- resolved Monitor renal function, I/O's, electrolytes replacement per protocol. Vascath d/c 11/26. Continue Lasix 40mg IV daily Renal is following. FEN/GI: Severe acute protein calorie malnutrition On tube feeds- Glucerna 1.5 with goal rate 45ml/hr Heme/ID: Daily CBC Hep C reactive, HIV reactive on screening test. CD4 count: 60 Merrem changed to Invanz by ID, Monitor for signs of infections ( Fever, WBC). Check UA urine cxs: ESBL E.coli 11/27 Sputum cx: Enterobacter, Kleb BC 11/29: NGTD ID is following Endocrine: Acute hypoglycemia, severe D10W at 30 miles an hour SSI with accuchecks Prophylaxis: GI Prophylaxis Pepcid IV DVT Prophylaxis -- SCDs Subcu heparin Lines: 11/19 right brachial arterial line 11/19 right subclavian 7 [place] triple-lumen catheter 11/19 right IJ 14 [place] 20 cm dialysis catheter d/c 11/26 11/19 [place] Prognosis appears poor. Palliative care following to assist with deciding goals of therapy. Spoke to patient's sister Kaylie today updated her on patient's condition and she states that the family will make final decision on trach/PEG vs transition to comfort care on Saturday. Level 3
[2017-12-04] MEDS: Famotidine PF Inj 20 MG/2 ML Vial IV.PUSH SCH ×2 (08:08→20:02)
[2017-12-04] MEDS: Senna/Docusate Sodium 8.6/50 MG Tablet PO SCH ×2 (08:09→20:02)
--- NOTE | 2017-12-04 08:46 | XR ---
EXAM DATE: 12/04/2017 8:31 AM EDT AGE/SEX: 57 years / Male INDICATIONS: Shortness of breath. CLINICAL DATA: This is the patient's subsequent encounter. Patient reports that signs and symptoms h ave been present for 3 days and indicates a pain score of Nonresponsive. MEDICAL/SURGICAL HISTORY: . Hypertension. Cardiovascular disease. Diabetes. Coronary artery st ent. COMPARISON: [facility], CHEST 1V SINGLE AP, 11/27/2017. . FINDINGS: Endotracheal tube is present with tip 9-10 cm above the [place]. Slight advancement would be recommend ed. Nasogastric tube descends into the stomach. Right subclavian central line is stable in good posit ion. There has been continued improvement in aeration with significant clearance of perihilar and bas ilar infiltrates. Cardiac contours are grossly stable. CONCLUSION: Significantly improved aeration. Endotracheal tube tip is a bit high Electronically signed by: Mango Resendez MD 12/04/2017 8:44 AM EDT
--- NOTE | 2017-12-04 09:02 | P.PNID ---
Subjective Remarks: Patient is a 57-year-old male, brought into the hospital after he was noted by his friend to have some altered mental status. He was noted to have a blood sugar of 50 in the ambulance and he received some dextrose with some improvement in his mentation. He was able to give some history to the ED MD, and admitted that he has been using cocaine, but he has denied any chest pain, shortness of breath. In the emergency room he was found to have an elevated creatinine of 2.4, potassium of 7, elevated LFTs and CPK, as well as B natruretic peptide of 4307. He was acidotic. His mental status continued to deteriorate in the emergency room, and he developed progressive obtundation, and required emergent intubation. He also became hypotensive, and he had an echo done at bedside with severe biventricular dysfunction with an EF of less than 10%. He was placed on epinephrine for cardiogenic shock. Since that time patient has remained intubated. He had emergent hemodialysis, and his electrolytes improved, as well as his creatinine. He is off HD now. He has moderate clear secretions in his ET. He has not been tolerating CPAP trials. Palliative medicine is also following patient, and he has DNR status. Patient has history of cardiomyopathy with a prior EF of 20%, and had undergone mitral valve repair back in June 2017. During his mitral valve surgery he had a preserved LV function, but post operative, he apparently continued to use cocaine and had subsequent hospital admission with documentation of a decrease in his EF to about 20%. On this admission patient had HIV testing, and the results came back positive. Over the last 2448 hrs., his temperature had increased. He had cultures done, and his sputum culture is growing Enterobacter and Klebsiella, and his urine culture has E. coli ESBL positive. Patient currently is afebrile. His hemodynamics are stable. Monitor shows sinus rhythm, with frequent PACs. His chest x-ray has evidence of pulmonary vascular congestion. Infectious disease consultation has been requested to assist with management of his multiple infections. Notes reviewed Temps ok On the vent sedated Has liquid stool Palliative med notes reviewed Antibiotics: Invanz Lines: RSC TLC Past Medical History: COPD (chronic obstructive pulmonary disease) Diabetes Gout Non-ischemic cardiomyopathy CHF (congestive heart failure) Cocaine use Hypertension H/O mitral valve repair Hep C HIV Allergies/Adverse Reactions: Allergies No Known Allergies Allergy (Unverified 11/19/17 04:45) Objective Vital Signs 12/03/17 09:00 12/03/17 09:30 12/03/17 10:00 Temperature Pulse Rate 135 H 109 H 106 H Respiratory Rate 25 H 16 16 Blood Pressure 139/98 H 85/63 L 103/61 Pulse Oximetry 100 100 12/03/17 10:30 12/03/17 11:00 12/03/17 11:31 Temperature Pulse Rate 105 H 110 H 103 H Respiratory Rate 16 16 16 Blood Pressure 101/68 108/73 84/51 L Pulse Oximetry 100 100 100 12/03/17 11:36 12/03/17 11:38 12/03/17 12:00 Temperature 98.0 F Pulse Rate 103 H 102 H Respiratory Rate 16 16 16 Blood Pressure 90/54 L 124/77 Pulse Oximetry 100 100 100 12/03/17 13:01 12/03/17 14:00 12/03/17 15:00 Temperature Pulse Rate 96 H 101 H 100 H Respiratory Rate 16 22 23 Blood Pressure 102/55 L 119/82 Pulse Oximetry 100 94 L 98 12/03/17 16:00 12/03/17 16:42 12/03/17 17:00 Temperature Pulse Rate 101 H 100 H Respiratory Rate 16 16 16 Blood Pressure 125/85 87/57 L Pulse Oximetry 100 100 12/03/17 18:00 12/03/17 19:00 12/03/17 20:00 Temperature 98.9 F Pulse Rate 100 H 95 H 104 H Respiratory Rate 16 16 16 Blood Pressure 93/57 L 92/60 L 110/88 Pulse Oximetry 100 100 100 12/03/17 20:05 12/03/17 23:25 12/04/17 00:00 Temperature 97.8 F Pulse Rate 91 H Respiratory Rate 22 16 16 Blood Pressure 113/76 Pulse Oximetry 95 96 100 12/04/17 04:00 12/04/17 04:05 12/04/17 08:00 Temperature 97.8 F Pulse Rate 100 H Respiratory Rate 16 17 Blood Pressure 118/80 Pulse Oximetry 100 96 93 L Intake & Output 12/03/17 12/04/17 12/04/17 18:59 06:59 18:59 Intake Total 926 / 926 1387 / 1387 Output Total 825 / 825 1300 / 1300 Balance 101 / 101 87 / 87 Weight 64 kg Intake: IV 300 / 300 850 / 850 Versed Inj 50 mg In 50 ml @ 2 100 / 100 50 / 50 MG/HR 2 mls/hr IV.CONT TITRATE PRN Rx#:[id number] Primacor Inj 20 MG In NS Inj 80 100 / 100 ML @ 0.5 MCG/KG/MIN 10.5 mls/ hr IV.CONT .Q9H32M [facility] Rx#: [id number] Diprivan 1000 mg/100 ml Inj 1, 100 / 100 100 / 100 000 mg In 100 ml @ 5 MCG/KG/MIN 1.89 mls/hr IV.CONT TITRATE PRN Rx#:[id number] D10W Inj 1,000 ML @ 30 mls/hr 500 / 500 IV.SIG .Q24H [facility] Rx#:[id number] INVanz Inj 1,000 MG In NS Inj 100 / 100 100 ML @ 100 mls/hr IV.SIG Q24H [facility] Rx#:[id number] Merrem Inj 1,000 MG In NS Inj 100 / 100 100 ML @ 200 mls/hr IV.SIG Q8H [facility] Rx#:[id number] Tube Feeding 506 / 506 417 / 417 Water Bolus Amount 120 / 120 120 / 120 Output: Stool 800 / 800 Urine Amount (Catheter) 825 / 825 500 / 500 Condom 825 / 825 500 / 500 Other: Date of Last Bowel Movement 12/04/17 11/29/17 12:00 Blood - Peripheral Aerobic Blood Culture - Preliminary No growth in 4 days 11/29/17 12:00 Blood - Peripheral Anaerobic Blood Culture - Preliminary No growth in 4 days 11/29/17 11:55 Blood - Peripheral Aerobic Blood Culture - Preliminary No growth in 4 days 11/29/17 11:55 Blood - Peripheral Anaerobic Blood Culture - Preliminary No growth in 4 days Lab - Hematology Results 12/03/17 12/04/17 03:26 04:54 WBC 4.8 4.2 RBC 4.60 4.38 L Hgb 13.5 12.9 L Hct 40.8 38.6 L MCV 88.8 88.2 MCH 29.4 29.4 MCHC 33.1 33.3 RDW 14.6 14.6 Plt Count 215 206 MPV 10.0 9.6 Neut % (Auto) 74.3 H 76.9 H Lymph % (Auto) 11.6 9.3 [place] % (Auto) 8.6 H 7.6 Eos % (Auto) 4.5 H 5.2 H Baso % (Auto) 1.0 1.0 Neut # (Auto) 3.5 3.2 Lymph # (Auto) 0.6 L 0.4 L [place] # (Auto) 0.4 0.3 Eos # (Auto) 0.2 0.2 Baso # (Auto) 0.0 0.0 WBC Differential . . Differential Comment Auto diff final Auto diff final Lab - Chemistry Results 12/02/17 12/03/17 12/03/17 16:34 00:27 03:26 Sodium 138 Potassium 3.8 Chloride 100 Carbon Dioxide 31.6 Anion Gap 6 BUN 34 H Creatinine 1.02 Estimated GFR Greater than 89 POC Glucose 120 H 115 H Random Glucose 134 H Calcium 7.7 L 12/03/17 12/03/17 12/03/17 11:03 18:17 23:51 Sodium Potassium Chloride Carbon Dioxide Anion Gap BUN Creatinine Estimated GFR POC Glucose 104 104 120 H Random Glucose Calcium 12/04/17 04:54 Sodium 138 Potassium 3.5 Chloride 103 Carbon Dioxide 30.1 Anion Gap 5 BUN 31 H Creatinine 0.91 Estimated GFR Greater than 89 POC Glucose Random Glucose 84 Calcium 7.6 L Imaging: ITS Impressions Abdomen/Pelvis CT 11/19/17 03:55 CONCLUSION: 1. Limited, suboptimal examination performed without intravenous or oral contrast. The study is degraded by motion artifact as well. 2. Abnormal bowel gas pattern with multiple small air-fluid levels. The bowel is suboptimally visualized and evaluated secondary to the lack of the intravenous and oral contrast as well as diffuse ascites. This may represent a gastroenteritis and/or ileus. Obstruction is less likely. 3. Diffuse ascites throughout the abdomen and pelvis. 4. Moderate size right effusion which is increased from the prior study. There is a new small left effusion. 5. Moderate cardiomegaly. 6. No definite gallstones identified. Head CT 11/19/17 03:55 CONCLUSION: 1. No acute hemorrhage or mass effect. 2. Mild motion and streak artifact. . Chest X-Ray 12/04/17 07:53 CONCLUSION: Significantly improved aeration. Endotracheal tube tip is a bit high Physical Exam: GENERAL: Sedated, on the vent, ?Having hiccups SKIN: Cool and dry. No generalized rash. HEAD: Atraumatic. Normocephalic. No temporal wasting, or tenderness. EYES: [place] conjunctiva. No petechia or hemorrhage. Has mild conjunctival injection. Pupils equal, round and reactive to light. No scleral icterus. EARS, NOSE AND THROAT: Nose without bleeding or purulent nasal discharge. He is orally intubated. Seems to have swelling of lips NECK: Trachea midline. Supple and not tender, no meningeal signs CARDIOVASCULAR: Irregular rate and rhythm. No murmurs, rubs or gallops heard. Sternotomy scar compatible with surgical history. RESPIRATORY: Coarse breath sounds bilaterally, decreased at the bases. ABDOMEN: Soft, non-tender, nondistended. Bowel sounds present and normoactive. No guarding. No rebound. No organomegaly. EXTREMITIES: No clubbing, cyanosis, or edema.No joint effusion, has good ROM. No calf tenderness. Well perfused and warm. NEUROLOGICAL: Sedated. PSYCHIATRIC: Unable to assess LINE: No evidence of infection, has RSC TLC : Condom cath in place, urine looks ok. Assessment and Plan - Plan Impression Fevers since 11/28, has been on vent since 11/19 - temps better - has HCAP/VAP, C/S with Enterobacter and Klebsiella - UTI, UC with E coli ESBL+ Kleb and Enterobacter PNA E coli ESBL UTI Respiratory failure, CHF, PNA Cardiomyopathy, EF <10% Prior MV repair Active cocaine use Newly Dx HIV, CD4 count 60 S/P renal failure, had 2 HD, renal function improved Recommendation Continue Invanxz and complete 14 days Rx - end date ordered on Projjix Monitor temps Monitor progress Weaning as tolerated per CCM Family looking at trach and PEG
[2017-12-04] MEDS: Lisinopril 5 MG Tablet PO SCH (11:04)
[2017-12-05] MEDS: Insulin NovoLIN Regular Correctional Sugar Inj SQ SCH ×4 (00:25→23:55)
[2017-12-05 04:18] LABS: Eos # (Auto) 0.2 th/mm3 (0.0-0.4); Eos % (Auto) 5.6 % (0.0-4.0); Hematocrit 39.6 % (39.0-51.0); Hemoglobin 12.8 gm/dL (13.0-17.0); Lymph # (Auto) 0.5 th/mm3 (1.0-4.8); Lymph % (Auto) 11.9 % (9.0-44.0); Mean Corpuscular HGB Conc 32.4 % (32.0-36.0); Mean Corpuscular Hemoglobin 29.3 pg (27.0-34.0); Mean Corpuscular Volume 90.3 fL (80.0-100.0); Mean Platelet Volume 9.5 fL (7.0-11.0); Mono # (Auto) 0.3 th/mm3 (0.0-0.9); Mono % (Auto) 7.8 % (0.0-8.0); Neut # (Auto) 3.1 th/mm3 (1.8-7.7); Neut % (Auto) 73.7 % (16.0-70.0); Platelet Count 204 th/mm3 (150-450); Red Blood Count 4.39 mil/mm3 (4.50-5.90); Red Cell Distribution Width 14.5 % (11.6-17.2); White Blood Count 4.2 th/mm3 (4.0-11.0)
[2017-12-05 04:33] LABS: Calcium 8.1 mg/dL (8.5-10.1); Carbon Dioxide 30.6 meq/L (21.0-32.0); Potassium 3.6 meq/L (3.5-5.1)
[2017-12-05] MEDS: Heparin - SQ 10,000 UNITS/ML Vial SQ SCH ×3 (05:26→23:56)
[2017-12-05] MEDS: Milrinone Inj 20 MG in Sodium Chlor 0.9% Inj 80 ML IV.CONT SCH ×2 (05:27→09:53)
[2017-12-05] MEDS: Dextrose 10% in Water Inj 1,000 ML IV.SIG SCH ×2 (06:18→23:54)
[2017-12-05] MEDS: Famotidine PF Inj 20 MG/2 ML Vial IV.PUSH SCH (09:52)
[2017-12-05] MEDS: Lisinopril 5 MG Tablet PO SCH (09:53)
[2017-12-05] MEDS: Senna/Docusate Sodium 8.6/50 MG Tablet PO SCH ×2 (09:53→23:56)
[2017-12-05] MEDS: Morphine Inj 4 MG/ML Vial IV.PUSH PRN (10:03)
--- NOTE | 2017-12-05 10:19 | P.PNCC ---
Subjective Subjective Remarks/Hospital Course: 11/19: This is a 57yM with history of cardiomyopathy and an EF 20% who recently underwent mitral valve repair for severe MR. At that time, he had a preserved LVEF. However, he continued to use illicit cocaine, and on subsequent hospital admissions, his EF had fallen to 20%. He represents today with altered mental status, endorsing cocaine use. On further evaluation, he has a potassium of 7, Cr 2.4, AST/ALT 200/72, CK 1302, BNP 4307, co2 14. On my evaluation he is obtunded and agonally breathing, intermittently tachypneic. I performed bedside critical care echo which demonstrated a severe biventricular dysfunction and an EF < 10%. there was spontaneous echo contrast in the LV and the aortic valve appeared to open only minimally due to low-flow. Patient is grossly anasarcic with 3+ edema bilaterally up to the abdomen. he has JVD above the level of the mandible. I emergently intubated the patient (see separate procedure note for details). I emergently placed arterial, central lines, and dialysis catheter. potassium did not improve with medical therapy. we consulted nephrology for emergent HD. I also placed the patient on epinephrine drip for cardiogenic shock. due to the patient's mental status and clinical status, no additional information is available from him. ROS unobtainable. 11/20: Remains sedated, orally intubated on mechanical ventilation. Dialyzed this morning. Remains on pressors. 11/21: Remains sedated, orally intubated on mechanical ventilation. Hypothermic this morning. 11/22: Remains sedated, orally intubated on mechanical ventilation. Dialysis scheduled today 11/23: Remains sedated, orally intubated on mechanical ventilation. On milrinone. 11/24, 11/25: Remains sedated, orally intubated on mechanical ventilation. Tolerating tube feeds. 11/26: Sedated, orally intubated on mechanical ventilation. Tolerating tube feeds. 11/27 No events overnight. Sedated with Versed and intubated. On Milrinone drip. 11/29 Patient is sedated with Versed and intubated. Remains on Milrinone. T: 100.4 last night. Had 1 run (6 beats) asymptomatic Vtach overnight. Gets tachycardic and tachypneic with CPAP trials. 11/30 Patient remains sedated and intubated. T:100.4 last night. Not tolerating CPAP trials. 12/01 No events overnight. T:100.0 last night. Sedated with versed and on Milrinone. 12/02 Patient remains intubated and sedated. T;100.0 last night. On Versed and Diprivan infusion for sedation. Not tolerating CPAP trials. 12/03 No events overnight. Sedated and intubated. On Milrinone. Afebrile. 12/04 Patient remains sedated and intubated. Afebrile. Subjective 12/05: Afebrile. Start back on midazolam drip due to tachycardia/agitation. Heart rate currently in the 150s. Did not tolerate CPAP trial. Remains on milrinone at 0.25 mcg/kg/min Objective Vital Signs / I&O: Vital Signs 12/04/17 11:00 12/04/17 11:55 12/04/17 12:00 Temperature Pulse Rate 115 H 105 H Respiratory Rate 24 16 16 Blood Pressure 105/63 88/53 L Pulse Oximetry 96 88 L 94 L 12/04/17 13:00 12/04/17 14:00 12/04/17 15:00 Temperature Pulse Rate 109 H 109 H 106 H Respiratory Rate 16 35 H 16 Blood Pressure 115/72 104/72 106/64 Pulse Oximetry 73 L 96 93 L 12/04/17 16:00 12/04/17 16:17 12/04/17 17:00 Temperature Pulse Rate 104 H 102 H Respiratory Rate 16 16 16 Blood Pressure 113/63 121/65 Pulse Oximetry 96 96 94 L 12/04/17 18:00 12/04/17 19:00 12/04/17 19:30 Temperature Pulse Rate 100 H 104 H 112 H Respiratory Rate 16 16 17 Blood Pressure 107/70 111/76 139/91 H Pulse Oximetry 95 95 98 12/04/17 20:00 12/04/17 20:16 12/04/17 20:30 Temperature 99.1 F Pulse Rate 104 H 108 H Respiratory Rate 16 16 16 Blood Pressure 124/83 123/81 Pulse Oximetry 100 98 98 12/04/17 21:00 12/04/17 21:30 12/04/17 21:47 Temperature Pulse Rate 110 H 114 H 103 H Respiratory Rate 25 H 19 16 Blood Pressure 117/90 125/91 H 104/65 Pulse Oximetry 100 97 98 12/04/17 21:52 12/04/17 22:00 12/04/17 22:30 Temperature Pulse Rate 97 H 96 H Respiratory Rate 16 16 16 Blood Pressure 97/60 L 109/66 Pulse Oximetry 98 98 97 12/04/17 23:00 12/04/17 23:31 12/04/17 23:53 Temperature Pulse Rate 100 H 113 H Respiratory Rate 16 33 H 17 Blood Pressure 120/79 144/95 H Pulse Oximetry 97 98 97 12/05/17 00:00 12/05/17 00:08 12/05/17 00:30 Temperature 98.8 F Pulse Rate 114 H 111 H 114 H Respiratory Rate 24 19 37 H Blood Pressure 153/103 H 139/90 140/91 H Pulse Oximetry 96 96 96 12/05/17 01:00 12/05/17 01:30 12/05/17 02:00 Temperature Pulse Rate 104 H 101 H 89 Respiratory Rate 17 16 16 Blood Pressure 122/80 121/90 83/54 L Pulse Oximetry 96 96 93 L 12/05/17 02:30 12/05/17 02:45 12/05/17 03:00 Temperature Pulse Rate 84 81 83 Respiratory Rate 16 16 16 Blood Pressure 86/55 L 96/55 L 113/77 Pulse Oximetry 93 L 93 L 93 L 12/05/17 03:30 12/05/17 04:00 12/05/17 04:19 Temperature 97.6 F Pulse Rate 90 89 Respiratory Rate 16 16 20 Blood Pressure 139/99 H 127/88 Pulse Oximetry 93 L 92 L 95 12/05/17 04:30 12/05/17 08:00 12/05/17 08:28 Temperature 99 F Pulse Rate 101 H 99 H Respiratory Rate 16 24 18 Blood Pressure 130/94 H 130/87 Pulse Oximetry 94 L 97 Intake & Output 12/04/17 12/05/17 12/05/17 18:59 06:59 18:59 Intake Total 439 / 439 1630 / 1630 Output Total 900 / 900 400 / 400 Balance -461 / -461 1230 / 1230 Weight 64 kg Intake: IV 1033 / 1033 Primacor Inj 20 MG In NS Inj 80 33 / 33 33 / 33 33 / 33 ML @ 0.5 MCG/KG/MIN 10.5 mls/ hr IV.CONT .Q9H32M [facility] Rx#: [id number] Inj 1,000 ML @ 30 mls/hr 1000 / 1000 IV.SIG .Q24H [facility] Rx#:[id number] Tube Feeding 306 / 306 597 / 597 Tube Irrigant 100 / 100 Output: Urine Amount (Catheter) 900 / 900 400 / 400 Condom 900 / 900 400 / 400 Other: Date of Last Bowel Movement 12/03/17 12/05/17 12/05/17 # Bowel Movements 1 Result Diagrams: 12/05/17 03:41 12/05/17 03:41 Other Results: Microbiology 11/29/17 12:00 Blood - Peripheral Aerobic Blood Culture - Final No growth in 5 days 11/29/17 12:00 Blood - Peripheral Anaerobic Blood Culture - Final No growth in 5 days 11/29/17 11:55 Blood - Peripheral Aerobic Blood Culture - Final No growth in 5 days 11/29/17 11:55 Blood - Peripheral Anaerobic Blood Culture - Final No growth in 5 days 11/27/17 13:30 Catheterized Urine Urine Culture - Final Escherichia coli ESBL positive 11/27/17 13:20 Sputum - Endotracheal Gram Stain - Final 11/27/17 13:20 Sputum - Endotracheal Sputum Culture - Final Enterobacter cloacae Klebsiella pneumoniae 11/19/17 11:46 Blood - Peripheral Aerobic Blood Culture - Final No growth in 5 days 11/19/17 11:46 Blood - Peripheral Anaerobic Blood Culture - Final No growth in 5 days 11/19/17 08:20 Blood - Peripheral Aerobic Blood Culture - Final No growth in 5 days 11/19/17 08:20 Blood - Peripheral Anaerobic Blood Culture - Final No growth in 5 days 11/19/17 06:35 Catheterized Urine Urine Culture - Final Enterococcus faecalis Imaging: ITS Impressions Abdomen/Pelvis CT 11/19/17 03:55 CONCLUSION: 1. Limited, suboptimal examination performed without intravenous or oral contrast. The study is degraded by motion artifact as well. 2. Abnormal bowel gas pattern with multiple small air-fluid levels. The bowel is suboptimally visualized and evaluated secondary to the lack of the intravenous and oral contrast as well as diffuse ascites. This may represent a gastroenteritis and/or ileus. Obstruction is less likely. 3. Diffuse ascites throughout the abdomen and pelvis. 4. Moderate size right effusion which is increased from the prior study. There is a new small left effusion. 5. Moderate cardiomegaly. 6. No definite gallstones identified. Head CT 11/19/17 03:55 CONCLUSION: 1. No acute hemorrhage or mass effect. 2. Mild motion and streak artifact. . Chest X-Ray 12/04/17 07:53 CONCLUSION: Significantly improved aeration. Endotracheal tube tip is a bit high Objective Remarks: GENERAL: Patient is 57 yo intubated and sedated SKIN: Warm and dry. HEAD: Normocephalic. EYES: No scleral icterus. No injection or drainage. NECK: Supple, trachea midline. No JVD or lymphadenopathy. CARDIOVASCULAR: Regular rate and rhythm without murmurs, gallops, or rubs. RESPIRATORY: Breath sounds equal bilaterally. No accessory muscle use. GASTROINTESTINAL: Abdomen soft, non-tender, nondistended. MUSCULOSKELETAL: No cyanosis, or edema. Neuro: Sedated Assessment and Plan - Assessment and Plan Plan: Neurologic: Acute toxic encephalopathy Acute cocaine intoxication Acute metabolic encephalopathy secondary to shock On midazolam drip as needed for sedation while intubated Morphine sulfate 4 mg IV every 2 hours as needed pain Daily sedation vacation. Monitor neuro status. Respiratory: Acute hypoxic and hypercarbic respiratory failure Acute severe pulmonary edema Continue with vent support keep sats >92% On PRVC RR 16, TV550, IT:1.1, PEEP:5, FIO2: 30% Bronchodilators. SBT daily as maria elena. Patient is not tolerating CPAP trials- gets apneic, tachycardic and tachypneic. CXR today showed improved aeration of lung Palliative care spoke to family and now leaning toward trach/PEG. Spoke to patient's sister Kaylie today updated her on patient's condition and she states that he family will make final decision on trach/PEG vs transition to comfort care on Saturday. Cardiovascular: s/p Cardiogenic shock Acute severe systolic congestive heart failure exacerbation Acute type II non-ST elevation myocardial infarction secondary to demand ischemia known prior EF 20% (09/2017), Echo 11/27: EF <20%, mod- severe MR, PAP 53.9mmHg likely secondary to chronic cocaine use superimposed on cardiomyopathy. Monitor HR and BP keep MAP>65mmHg. on carvedilol 3.125mg BID. add Lisinopril 5mg daily On 12.5 mg twice daily carvedilol at home. Holding amlodipine 10 mg daily/ home medication On Milrinone drip at 0.25 mcg/kg/min. Lactic acid resolved 1.1 on 11/20 Renal: Acute kidney injury- resolved RACHID positive. Positive RACHID screen pending. Low complements noted. Monitor renal function, I/O's, electrolytes replacement per protocol. Vascath d/c 11/26. Continue furosemide 40mg IV daily Renal has followed FEN/GI: Hep C reactive Hypoalbuminemia Severe acute protein calorie malnutrition On tube feeds- Glucerna 1.5 with goal rate 55ml/hr Lansoprazole for GI prophylaxis. Docusate sodium/senna 1 tablet twice daily for bowel regimen Check C viral load and genotype Heme/ID: VAP -Enterobacter/Klebsiella E. coli UTI HIV - CD4 60 new diagnosis Daily CBC , HIV reactive on screening test. CD4 count: 60 Meropenem switched to ertapenem by ID, Monitor for signs of infections ( Fever , WBC). Check UA urine cxs: ESBL E.coli 11/27 Sputum cx: Enterobacter, Kleb BC 11/29: NGTD ID is following Endocrine: Acute hypoglycemia, severe SSI with accuchecks Prophylaxis: GI Prophylaxis Lansoprazole DVT Prophylaxis lansoprazole -- SCDs Subcu heparin Lines: 11/19 right subclavian 7 Malagasy triple-lumen catheter 11/19 right IJ 14 Malagasy 20 cm dialysis catheter d/c 11/26 Prognosis appears poor. Palliative care following to assist with deciding goals of therapy. Spoke to patient's sister Kaylie today updated her on patient's condition and she states that the family will make final decision on trach/PEG vs transition to comfort care on Saturday. Level 3
--- NOTE | 2017-12-05 12:42 | P.PNPAL ---
Reason for Visit Reason for visit: a. To assist with evaluation and management of symptoms including: Altered mental status, edema b. To assist medical decision maker(s) with: better understanding of current medical conditions; weighing benefits/burdens of medical treatment options; making medical treatment decisions. Subjective Subjective/Interval History: Follow up medically necessary for symptom management. Patient seen and examined on MICU. Patient remains intubated on mechanical ventilation. Midazolam and Propofol had been weaned off and was restarted on Midazolam infusion at 10mg/hr today due to worsening agitation and tachycardia with HR in the 150s. Patient remains on Milrinone infusion at 0.25 mcg/kg/min. Patient continues to fail spontaneous breathing trials. Laboratory workup today revealing WBC 4.2, Hgb 12.8, Hct 39.6, PLT count 204, BUN/Creat 31/1.04. Patient had low grade temp of 99 degrees F today. Per discussion with [facility] Dr. Bee patient`s family is planning of making a final decision regarding proceeding with tracheotomy and PEG placement or compassionately withdrawing from life support. Family/Friend Interactions: No family at bedside. Advance Directives Living Will: Never completed Health Care Surrogate: Never completed Durable Power of Blast Furnace Tender: Never completed Health Care Surrogate Name and Number: HCP: Jaky Medina [phone]/ Objective Vital Signs: Vital Signs 12/04/17 13:00 12/04/17 14:00 12/04/17 15:00 Temperature Pulse Rate 109 H 109 H 106 H Respiratory Rate 16 35 H 16 Blood Pressure 115/72 104/72 106/64 Pulse Oximetry 73 L 96 93 L 12/04/17 16:00 12/04/17 16:17 12/04/17 17:00 Temperature Pulse Rate 104 H 102 H Respiratory Rate 16 16 16 Blood Pressure 113/63 121/65 Pulse Oximetry 96 96 94 L 12/04/17 18:00 12/04/17 19:00 12/04/17 19:30 Temperature Pulse Rate 100 H 104 H 112 H Respiratory Rate 16 16 17 Blood Pressure 107/70 111/76 139/91 H Pulse Oximetry 95 95 98 12/04/17 20:00 12/04/17 20:16 12/04/17 20:30 Temperature 99.1 F Pulse Rate 104 H 108 H Respiratory Rate 16 16 16 Blood Pressure 124/83 123/81 Pulse Oximetry 100 98 98 12/04/17 21:00 12/04/17 21:30 12/04/17 21:47 Temperature Pulse Rate 110 H 114 H 103 H Respiratory Rate 25 H 19 16 Blood Pressure 117/90 125/91 H 104/65 Pulse Oximetry 100 97 98 12/04/17 21:52 12/04/17 22:00 12/04/17 22:30 Temperature Pulse Rate 97 H 96 H Respiratory Rate 16 16 16 Blood Pressure 97/60 L 109/66 Pulse Oximetry 98 98 97 12/04/17 23:00 12/04/17 23:31 12/04/17 23:53 Temperature Pulse Rate 100 H 113 H Respiratory Rate 16 33 H 17 Blood Pressure 120/79 144/95 H Pulse Oximetry 97 98 97 12/05/17 00:00 12/05/17 00:08 12/05/17 00:30 Temperature 98.8 F Pulse Rate 114 H 111 H 114 H Respiratory Rate 24 19 37 H Blood Pressure 153/103 H 139/90 140/91 H Pulse Oximetry 96 96 96 12/05/17 01:00 12/05/17 01:30 12/05/17 02:00 Temperature Pulse Rate 104 H 101 H 89 Respiratory Rate 17 16 16 Blood Pressure 122/80 121/90 83/54 L Pulse Oximetry 96 96 93 L 12/05/17 02:30 12/05/17 02:45 12/05/17 03:00 Temperature Pulse Rate 84 81 83 Respiratory Rate 16 16 16 Blood Pressure 86/55 L 96/55 L 113/77 Pulse Oximetry 93 L 93 L 93 L 12/05/17 03:30 12/05/17 04:00 12/05/17 04:19 Temperature 97.6 F Pulse Rate 90 89 Respiratory Rate 16 16 20 Blood Pressure 139/99 H 127/88 Pulse Oximetry 93 L 92 L 95 12/05/17 04:30 12/05/17 08:00 12/05/17 08:28 Temperature 99 F Pulse Rate 101 H 99 H Respiratory Rate 16 24 18 Blood Pressure 130/94 H 130/87 Pulse Oximetry 94 L 97 12/05/17 11:39 Temperature Pulse Rate Respiratory Rate 16 Blood Pressure Pulse Oximetry Intake & Output 12/04/17 12/05/17 12/05/17 18:59 06:59 18:59 Intake Total 439 / 439 1630 / 1630 Output Total 900 / 900 400 / 400 Balance -461 / -461 1230 / 1230 Weight 64 kg Intake: IV 1033 / 1033 Primacor Inj 20 MG In NS Inj 80 ML @ 0.5 MCG/KG/MIN 10.5 mls/ hr IV.CONT .Q9H32M RUDDY Rx#: [id number] Inj 1,000 ML @ 30 mls/hr 1000 / 1000 IV.SIG .Q24H RUDDY Rx#:[id number] Tube Feeding 306 / 306 597 / 597 Tube Irrigant 100 / 100 Output: Urine Amount (Catheter) 900 / 900 400 / 400 Condom 900 / 900 400 / 400 Other: Date of Last Bowel Movement 12/03/17 12/05/17 12/05/17 # Bowel Movements 1 Physical Exam: CONSTITUTIONAL/GENERAL: This is an adequately nourished patient, intubated, sedated, in no apparent distress. TUBES/LINES/DRAINS: right subclavian central line, ETT, Condom catheter,OGT, . SKIN: No jaundice, rashes, or lesions. No wounds seen anteriorly. Skin temperature appropriate. Not diaphoretic. HEAD: Atraumatic. Normocephalic. EYES: Pupils equal and round and sluggishly reactive. No scleral icterus. No injection or drainage. Fundi not examined. ENT: Nose without bleeding or purulent drainage. Orally intubated. NECK: Trachea midline. Supple, nontender. CARDIOVASCULAR: S1, S2, S3. Irregular rhythm, controlled rate without gallops, or rubs. Soft 1/6 systolic ejection murmur. No JVD. Pedal pulses+ve by doppler RESPIRATORY/CHEST: Symmetric, unlabored respirations. Rhonchi to auscultation. GASTROINTESTINAL: Abdomen soft, nondistended. Intermittent BS. OGT with TF infusing at 45ml.hr GENITOURINARY: Without palpable bladder distension. Condom catheter MUSCULOSKELETAL: Extremities without clubbing or cyanosis, trace edema to BLE, 2 + to BUE. No mottling or clubbing. NEUROLOGICAL: Intubated, sedated. On Midazolam 10mg/hr. Withdraws with all 4 extremities PSYCHIATRIC: Unable to assess. Currently sedated and calm. . Diagnostic Tests Laboratory: Laboratory Results - last 72 hr 12/02/17 12/03/17 12/03/17 16:34 00:27 03:26 WBC 4.8 RBC 4.60 Hgb 13.5 Hct 40.8 MCV 88.8 MCH 29.4 MCHC 33.1 RDW 14.6 Plt Count 215 MPV 10.0 Neut % (Auto) 74.3 H Lymph % (Auto) 11.6 Sibley % (Auto) 8.6 H Eos % (Auto) 4.5 H Baso % (Auto) 1.0 Neut # (Auto) 3.5 Lymph # (Auto) 0.6 L Sibley # (Auto) 0.4 Eos # (Auto) 0.2 Baso # (Auto) 0.0 WBC Differential . Differential Comment Auto diff final Sodium Potassium Chloride Carbon Dioxide Anion Gap BUN Creatinine Estimated GFR POC Glucose 120 H 115 H Random Glucose Calcium 12/03/17 12/03/17 12/03/17 03:26 11:03 18:17 WBC RBC Hgb Hct MCV MCH MCHC RDW Plt Count MPV Neut % (Auto) Lymph % (Auto) Sibley % (Auto) Eos % (Auto) Baso % (Auto) Neut # (Auto) Lymph # (Auto) Sibley # (Auto) Eos # (Auto) Baso # (Auto) WBC Differential Differential Comment Sodium 138 Potassium 3.8 Chloride 100 Carbon Dioxide 31.6 Anion Gap 6 BUN 34 H Creatinine 1.02 Estimated GFR Greater than 89 POC Glucose 104 104 Random Glucose 134 H Calcium 7.7 L 12/03/17 12/04/17 12/04/17 23:51 04:54 04:54 WBC 4.2 RBC 4.38 L Hgb 12.9 L Hct 38.6 L MCV 88.2 MCH 29.4 MCHC 33.3 RDW 14.6 Plt Count 206 MPV 9.6 Neut % (Auto) 76.9 H Lymph % (Auto) 9.3 Sibley % (Auto) 7.6 Eos % (Auto) 5.2 H Baso % (Auto) 1.0 Neut # (Auto) 3.2 Lymph # (Auto) 0.4 L Sibley # (Auto) 0.3 Eos # (Auto) 0.2 Baso # (Auto) 0.0 WBC Differential . Differential Comment Auto diff final Sodium 138 Potassium 3.5 Chloride 103 Carbon Dioxide 30.1 Anion Gap 5 BUN 31 H Creatinine 0.91 Estimated GFR Greater than 89 POC Glucose 120 H Random Glucose 84 Calcium 7.6 L 12/04/17 12/04/17 12/04/17 14:03 17:07 19:43 WBC RBC Hgb Hct MCV MCH MCHC RDW Plt Count MPV Neut % (Auto) Lymph % (Auto) Sibley % (Auto) Eos % (Auto) Baso % (Auto) Neut # (Auto) Lymph # (Auto) Sibley # (Auto) Eos # (Auto) Baso # (Auto) WBC Differential Differential Comment Sodium Potassium Chloride Carbon Dioxide Anion Gap BUN Creatinine Estimated GFR POC Glucose 110 102 115 H Random Glucose Calcium 12/04/17 12/05/17 12/05/17 23:58 03:41 03:41 WBC 4.2 RBC 4.39 L Hgb 12.8 L Hct 39.6 MCV 90.3 MCH 29.3 MCHC 32.4 RDW 14.5 Plt Count 204 MPV 9.5 Neut % (Auto) 73.7 H Lymph % (Auto) 11.9 Sibley % (Auto) 7.8 Eos % (Auto) 5.6 H Baso % (Auto) 1.0 Neut # (Auto) 3.1 Lymph # (Auto) 0.5 L Sibley # (Auto) 0.3 Eos # (Auto) 0.2 Baso # (Auto) 0.0 WBC Differential . Differential Comment Auto diff final Sodium 137 Potassium 3.6 Chloride 100 Carbon Dioxide 30.6 Anion Gap 6 BUN 31 H Creatinine 1.04 Estimated GFR 89 POC Glucose 123 H Random Glucose 101 Calcium 8.1 L 12/05/17 12/05/17 05:17 11:14 WBC RBC Hgb Hct MCV MCH MCHC RDW Plt Count MPV Neut % (Auto) Lymph % (Auto) Sibley % (Auto) Eos % (Auto) Baso % (Auto) Neut # (Auto) Lymph # (Auto) Sibley # (Auto) Eos # (Auto) Baso # (Auto) WBC Differential Differential Comment Sodium Potassium Chloride Carbon Dioxide Anion Gap BUN Creatinine Estimated GFR POC Glucose 93 112 H Random Glucose Calcium Result Diagrams: 12/05/17 03:41 12/05/17 03:41 Microbiology: Microbiology 11/29/17 12:00 Aerobic Blood Culture - Final Blood - Peripheral No growth in 5 days Anaerobic Blood Culture - Final No growth in 5 days 11/29/17 11:55 Aerobic Blood Culture - Final Blood - Peripheral No growth in 5 days Anaerobic Blood Culture - Final No growth in 5 days Imaging: Abdomen/Pelvis CT 11/19/17 03:55 CONCLUSION: 1. Limited, suboptimal examination performed without intravenous or oral contrast. The study is degraded by motion artifact as well. 2. Abnormal bowel gas pattern with multiple small air-fluid levels. The bowel is suboptimally visualized and evaluated secondary to the lack of the intravenous and oral contrast as well as diffuse ascites. This may represent a gastroenteritis and/or ileus. Obstruction is less likely. 3. Diffuse ascites throughout the abdomen and pelvis. 4. Moderate size right effusion which is increased from the prior study. There is a new small left effusion. 5. Moderate cardiomegaly. 6. No definite gallstones identified. Head CT 11/19/17 03:55 CONCLUSION: 1. No acute hemorrhage or mass effect. 2. Mild motion and streak artifact. . Chest X-Ray 12/04/17 07:53 CONCLUSION: Significantly improved aeration. Endotracheal tube tip is a bit high Procedures: 11/19/2017: Right radial arterial line placement 11/19/2017: Endotracheal intubation 11/19/2017: Right subclavian triple-lumen catheter placement 11/19/2017 right IJ dialysis catheter placement Dc`d 11/26/17 . 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 He was never and has no children. He was previously in the [employer]. Spiritual: Marketing Assistant available. Legal: No living will or healthcare surrogate completed. Ethical issues impacting care: None noted. . Important Contacts: Mother: Angelina Medina healthcare proxy- Currently living with daughter, Kaylie Gama. Sister: Bryan Sharp Sister: Kamille Lucina Brother: [place] Verdugo Brother: Carter Verdeane Sister: Kaylie Gama - , C [phone] . Prognosis: His prognosis is poor. 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 He has suffered a decline in heart function since June 2017 when echocardiogram showed a 50-55% ejection fraction at the time of mitral valve repair. Patient continued to abuse cocaine and possibly other substances and when seen in [place] September 2017 for chest pain was found to have non-ischemic cardiomyopathy with a normal coronary artery circulation and ejection fraction of 20-25%. Echocardiogram at this admission shows cardiogenic shock with an EF less than 10%. He is now requiring inotropic support with milrinone and now has acute kidney injury requiring dialysis for both hyperkalemia and fluid overload. At this time he remains on life support, intubated, but is at elevated risk for continued complications and decline. He would be hospice appropriate if goals were consistent. . Code Status: No Code DNR (Do not reintubate) Plan: PLAN: Legal decision maker: At this time the patient is not capacitated for decision making and it is not certain that he will ever regain capacity. He was never and has no children. His mother would be his proxy decision maker per [place] statutes. She had previously been reported to me as demented and unable to make these decisions, however, her daughter, Kaylie, who is her caregiver disputes that and states that her mother is perfectly capable of making these decisions and wishes to be her son's decision-maker. In conversation with Ms. Medina, herself, she appeared appropriate and capable of decision-making. Goals: Aggressive short of no code. Per discussion with [facility] Dr. Bee patient`s family is planning of making a final decision regarding proceeding with tracheotomy and PEG placement or compassionately withdrawing from life support. CODE STATUS: DO NOT RESUSCITATE SYMPTOMS: * Altered mental status: Presented with altered mental status, positive for cocaine, hypoglycemic, hyperkalemic, in fulminant heart failure, minimally able to make his needs known. Shortly thereafter he required intubation and sedation. Bedside critical care echo showed severe biventricular dysfunction with EF less than 10%, aortic valve opening only minimally due to low flow. HIV positive-CD4 count 60. Sedation was weaned off but patient has been agitated and was restarted on Midazolam infusion at 10mg/hr today. * Edema: Edema is improving on hemodialysis, which is on hold after today's ultrafiltration as patient's renal status is stabilizing and is having some urine output. Given his severe heart failure, borderline hypotension and impaired renal function, this is likely to be an ongoing problem. Last hemodialysis on 11/23. Edema currently managed with Furosemide 40mgIVP daily. Elevate BLE. Monitor I &Os. Palliative care will continue to follow the patient during hospital course as condition evolves, to assist patient/decision-maker with understanding of their medical conditions, weighing benefits/burdens of treatment options, for clarification of goals of treatment. Additionally will assist with any symptoms of palliative concern. . Attestation Attestation: To help prompt me to consider important information that might be impacting today's encounter and assessment, information from prior notes written by myself or my colleagues may have been "brought forward" into today's note. My signature on this note, however, is an attestation that I personally performed the exam, history, and/or decision-making noted today, and, unless otherwise indicated, the interactions with patient, family, and staff as well as the review of records all occurred today. I also attest that the listed assessment and stated plan reflect my best clinical judgment today based on the combination of historical information, prior notes, and today's exam/ interactions. When time spent is documented, it refers only to time spent today by the signer, or if indicated, combined time spent today by collaborating physician/nurse practitioner.
--- NOTE | 2017-12-05 13:40 | P.PNID ---
Subjective Remarks: Patient is a 57-year-old male, brought into the hospital after he was noted by his friend to have some altered mental status. He was noted to have a blood sugar of 50 in the ambulance and he received some dextrose with some improvement in his mentation. He was able to give some history to the ED MD, and admitted that he has been using cocaine, but he has denied any chest pain, shortness of breath. In the emergency room he was found to have an elevated creatinine of 2.4, potassium of 7, elevated LFTs and CPK, as well as B natruretic peptide of 4307. He was acidotic. His mental status continued to deteriorate in the emergency room, and he developed progressive obtundation, and required emergent intubation. He also became hypotensive, and he had an echo done at bedside with severe biventricular dysfunction with an EF of less than 10%. He was placed on epinephrine for cardiogenic shock. Since that time patient has remained intubated. He had emergent hemodialysis, and his electrolytes improved, as well as his creatinine. He is off HD now. He has moderate clear secretions in his ET. He has not been tolerating CPAP trials. Palliative medicine is also following patient, and he has DNR status. Patient has history of cardiomyopathy with a prior EF of 20%, and had undergone mitral valve repair back in June 2017. During his mitral valve surgery he had a preserved LV function, but post operative, he apparently continued to use cocaine and had subsequent hospital admission with documentation of a decrease in his EF to about 20%. On this admission patient had HIV testing, and the results came back positive. Over the last 2448 hrs., his temperature had increased. He had cultures done, and his sputum culture is growing Enterobacter and Klebsiella, and his urine culture has E. coli ESBL positive. Patient currently is afebrile. His hemodynamics are stable. Monitor shows sinus rhythm, with frequent PACs. His chest x-ray has evidence of pulmonary vascular congestion. Infectious disease consultation has been requested to assist with management of his multiple infections. Notes reviewed Temps occ low grade Remains on the vent Last CXR 12/04 improving CD4 count 60 ESBL E.coli in the urine Sputum with Enterobacter and Kleb Antibiotics: meropenem Lines: RSC TLC Past Medical History: COPD (chronic obstructive pulmonary disease) Diabetes Gout Non-ischemic cardiomyopathy CHF (congestive heart failure) Cocaine use Hypertension H/O mitral valve repair Hep C HIV Allergies/Adverse Reactions: Allergies No Known Allergies Allergy (Unverified 11/19/17 04:45) Objective Vital Signs 12/04/17 14:00 12/04/17 15:00 12/04/17 16:00 Temperature Pulse Rate 109 H 106 H 104 H Respiratory Rate 35 H 16 16 Blood Pressure 104/72 106/64 113/63 Pulse Oximetry 96 93 L 96 12/04/17 16:17 12/04/17 17:00 12/04/17 18:00 Temperature Pulse Rate 102 H 100 H Respiratory Rate 16 16 16 Blood Pressure 121/65 107/70 Pulse Oximetry 96 94 L 95 12/04/17 19:00 12/04/17 19:30 12/04/17 20:00 Temperature 99.1 F Pulse Rate 104 H 112 H 104 H Respiratory Rate 16 17 16 Blood Pressure 111/76 139/91 H 124/83 Pulse Oximetry 95 98 100 12/04/17 20:16 12/04/17 20:30 12/04/17 21:00 Temperature Pulse Rate 108 H 110 H Respiratory Rate 16 16 25 H Blood Pressure 123/81 117/90 Pulse Oximetry 98 98 100 12/04/17 21:30 12/04/17 21:47 12/04/17 21:52 Temperature Pulse Rate 114 H 103 H Respiratory Rate 19 16 16 Blood Pressure 125/91 H 104/65 Pulse Oximetry 97 98 98 12/04/17 22:00 12/04/17 22:30 12/04/17 23:00 Temperature Pulse Rate 97 H 96 H 100 H Respiratory Rate 16 16 16 Blood Pressure 97/60 L 109/66 120/79 Pulse Oximetry 98 97 97 12/04/17 23:31 12/04/17 23:53 12/05/17 00:00 Temperature 98.8 F Pulse Rate 113 H 114 H Respiratory Rate 33 H 17 24 Blood Pressure 144/95 H 153/103 H Pulse Oximetry 98 97 96 12/05/17 00:08 12/05/17 00:30 12/05/17 01:00 Temperature Pulse Rate 111 H 114 H 104 H Respiratory Rate 19 37 H 17 Blood Pressure 139/90 140/91 H 122/80 Pulse Oximetry 96 96 96 12/05/17 01:30 12/05/17 02:00 12/05/17 02:30 Temperature Pulse Rate 101 H 89 84 Respiratory Rate 16 16 16 Blood Pressure 121/90 83/54 L 86/55 L Pulse Oximetry 96 93 L 93 L 12/05/17 02:45 12/05/17 03:00 12/05/17 03:30 Temperature Pulse Rate 81 83 90 Respiratory Rate 16 16 16 Blood Pressure 96/55 L 113/77 139/99 H Pulse Oximetry 93 L 93 L 93 L 12/05/17 04:00 12/05/17 04:19 12/05/17 04:30 Temperature 97.6 F Pulse Rate 89 101 H Respiratory Rate 16 20 16 Blood Pressure 127/88 130/94 H Pulse Oximetry 92 L 95 94 L 12/05/17 08:00 12/05/17 08:28 12/05/17 11:39 Temperature 99 F Pulse Rate 99 H Respiratory Rate 24 18 16 Blood Pressure 130/87 Pulse Oximetry 97 12/05/17 12:00 Temperature 99.3 F Pulse Rate 103 H Respiratory Rate 20 Blood Pressure 133/88 Pulse Oximetry 99 Intake & Output 12/04/17 12/05/17 12/05/17 18:59 06:59 18:59 Intake Total 439 / 439 1630 / 1630 Output Total 900 / 900 400 / 400 Balance -461 / -461 1230 / 1230 Weight 64 kg Intake: IV 1033 / 1033 33 Primacor Inj 20 MG In NS Inj 80 33 / 33 ML @ 0.5 MCG/KG/MIN 10.5 mls/ hr IV.CONT .Q9H32M [facility] Rx#: [id number] Inj 1,000 ML @ 30 mls/hr 1000 / 1000 IV.SIG .Q24H [facility] Rx#:[id number] Tube Feeding 306 / 306 597 / 597 Tube Irrigant 100 / 100 Output: Urine Amount (Catheter) 900 / 900 400 / 400 Condom 900 / 900 400 / 400 Other: Date of Last Bowel Movement 12/03/17 12/05/17 12/05/17 # Bowel Movements 1 11/29/17 12:00 Blood - Peripheral Aerobic Blood Culture - Final No growth in 5 days 11/29/17 12:00 Blood - Peripheral Anaerobic Blood Culture - Final No growth in 5 days 11/29/17 11:55 Blood - Peripheral Aerobic Blood Culture - Final No growth in 5 days 11/29/17 11:55 Blood - Peripheral Anaerobic Blood Culture - Final No growth in 5 days Lab - Hematology Results 12/04/17 12/05/17 04:54 03:41 WBC 4.2 4.2 RBC 4.38 L 4.39 L Hgb 12.9 L 12.8 L Hct 38.6 L 39.6 MCV 88.2 90.3 MCH 29.4 29.3 MCHC 33.3 32.4 RDW 14.6 14.5 Plt Count 206 204 MPV 9.6 9.5 Neut % (Auto) 76.9 H 73.7 H Lymph % (Auto) 9.3 11.9 Clarke % (Auto) 7.6 7.8 Eos % (Auto) 5.2 H 5.6 H Baso % (Auto) 1.0 1.0 Neut # (Auto) 3.2 3.1 Lymph # (Auto) 0.4 L 0.5 L Clarke # (Auto) 0.3 0.3 Eos # (Auto) 0.2 0.2 Baso # (Auto) 0.0 0.0 WBC Differential . . Differential Comment Auto diff final Auto diff final Lab - Chemistry Results 12/03/17 12/03/17 12/04/17 18:17 23:51 04:54 Sodium 138 Potassium 3.5 Chloride 103 Carbon Dioxide 30.1 Anion Gap 5 BUN 31 H Creatinine 0.91 Estimated GFR Greater than 89 POC Glucose 104 120 H Random Glucose 84 Calcium 7.6 L 12/04/17 12/04/17 12/04/17 14:03 17:07 19:43 Sodium Potassium Chloride Carbon Dioxide Anion Gap BUN Creatinine Estimated GFR POC Glucose 110 102 115 H Random Glucose Calcium 12/04/17 12/05/17 12/05/17 23:58 03:41 05:17 Sodium 137 Potassium 3.6 Chloride 100 Carbon Dioxide 30.6 Anion Gap 6 BUN 31 H Creatinine 1.04 Estimated GFR 89 POC Glucose 123 H 93 Random Glucose 101 Calcium 8.1 L 12/05/17 11:14 Sodium Potassium Chloride Carbon Dioxide Anion Gap BUN Creatinine Estimated GFR POC Glucose 112 H Random Glucose Calcium Imaging: ITS Impressions Abdomen/Pelvis CT 11/19/17 03:55 CONCLUSION: 1. Limited, suboptimal examination performed without intravenous or oral contrast. The study is degraded by motion artifact as well. 2. Abnormal bowel gas pattern with multiple small air-fluid levels. The bowel is suboptimally visualized and evaluated secondary to the lack of the intravenous and oral contrast as well as diffuse ascites. This may represent a gastroenteritis and/or ileus. Obstruction is less likely. 3. Diffuse ascites throughout the abdomen and pelvis. 4. Moderate size right effusion which is increased from the prior study. There is a new small left effusion. 5. Moderate cardiomegaly. 6. No definite gallstones identified. Head CT 11/19/17 03:55 CONCLUSION: 1. No acute hemorrhage or mass effect. 2. Mild motion and streak artifact. Chest X-Ray 12/04/17 07:53 CONCLUSION: Significantly improved aeration. Endotracheal tube tip is a bit high Physical Exam: GENERAL: Sedated, on the vent, looks ok SKIN: Cool and dry. No generalized rash, no ecchymoses and no evidence of embolic lesions. HEAD: Atraumatic. Normocephalic. No temporal wasting, or tenderness. EYES: Harding Gill Tract conjunctiva. No petechia or hemorrhage. Has mild conjunctival injection. Pupils equal, round and reactive to light. No scleral icterus. EARS, NOSE AND THROAT: Nose without bleeding or purulent nasal discharge. He is orally intubated. NECK: Trachea midline. Supple and not tender, no meningeal signs CARDIOVASCULAR: Irregular rate and rhythm. No murmurs, rubs or gallops heard. Sternotomy scar compatible with surgical history. RESPIRATORY: Coarse breath sounds bilaterally, decreased at the bases. ABDOMEN: Soft, non-tender, nondistended. Bowel sounds present and normoactive. No guarding. No rebound. No organomegaly. EXTREMITIES: No clubbing, cyanosis, or edema. No calf tenderness. Well perfused and warm. NEUROLOGICAL: Opens eyes when stimulated, not interacting. No Babinski, or ankle clonus. PSYCHIATRIC: Unable to assess LINE: No evidence of infection, has RSC TLC : Condom cath in place, urine looks ok. Assessment and Plan - Plan Impression Fevers since 11/28, has been on vent since 11/19 - temps better - has HCAP/VAP, C/S with Enterobacter and Klebsiella - UTI, UC with E coli ESBL+ Kleb and Enterobacter PNA E coli ESBL UTI Respiratory failure, CHF, PNA Cardiomyopathy, EF <10% Prior MV repair Active cocaine use Newly Dx HIV, CD4 count 60 S/P renal failure, had 2 HD, renal function improved Recommendation Continue Meropenem If with more fevers, will repeat C/S Monitor temps Monitor progress Weaning as tolerated per CCM
--- NOTE | 2017-12-05 17:04 | MR ---
EXAM DATE: 12/05/2017 4:52 PM EDT AGE/SEX: 57 years / Male INDICATIONS: CVA. CLINICAL DATA: This is the patient's initial encounter. Patient reports that signs and symptoms have been present for 1 day and indicates a pain score of Nonresponsive. MEDICAL/SURGICAL HISTORY: Non-responsive. None. COMPARISON: No prior exams available for comparison. TECHNIQUE: Multiplanar, multisequence examination of the brain was performed without contrast. FINDINGS: Cerebrum: There is mild generalized atrophy with ventricular size within normal limits given the degr ee of atrophy. No midline shift, mass lesion, or hemorrhage. There is a punctate area of increased d iffusion signal in the right centrum semiovale. It is associated with increased FLAIR signal but no c lear decreased ADC signal. No extraaxial fluid collections are seen. The pituitary gland and supras ellar cistern are normal in configuration. White Matter: There is moderate periventricular and subcortical white matter signal change bilateral ly. Posterior Fossa: There is abnormal increased FLAIR and T2 signal in the right superior mesial cerebel lum. This area is associated with restricted diffusion. Diffusion Imaging: There is restricted diffusion in the mesial right superior cerebellum. Extracranial: The visualized sinuses are clear. CONCLUSION: 1. Edema with restricted diffusion in the medial right superior cerebellum. Imaging findings are wei racteristic of recent ischemia. 2. Chronic findings include generalized cerebral atrophy with moderate chronic periventricular and s ubcortical white matter signal change characteristic of chronic microvascular ischemia. The punctate area of signal change in the right centrum semiovale is suspected to represent white matter signal ch addy but nonacute ischemia. Electronically signed by: Mango Avila MD 12/05/2017 5:03 PM EDT
--- NOTE | 2017-12-05 18:03 | MG ---
cc: Lemuel Hastings MD, PhD [id number] TECHNIQUE: A 17-channel EEG. DESCRIPTION: The background rhythm reveals mild slowing in the theta range, roughly 6 Hz. Amplitude is 20-30 microvolts. No lateralizing features are identified. No epileptiform features are seen. There is some delta slowing at 3-4 Hz, but this is minimal. Hyperventilation was not performed. Photic stimulation was done in a stepwise fashion with a modest driving response. INTERPRETATION: Abnormal study consistent with a moderate encephalopathy. Lemuel Hastings MD, PhD JUAN/yuli , 05:49 PM , 05:53 PM
[2017-12-05] MEDS: Midazolam 50 MG/50 ML Inj 50 MG/50 ML BAG IV.CONT PRN (21:30)
[2017-12-05] MEDS: Hypromellose 0.3% Opth Gel 10 GM Bottle EACH EYE SCH (23:56)
[2017-12-06] MEDS: Insulin NovoLIN Regular Correctional Sugar Inj SQ SCH ×4 (00:07→18:32)
[2017-12-06] MEDS: Midazolam 50 MG/50 ML Inj 50 MG/50 ML BAG IV.CONT PRN ×3 (02:37→20:00)
[2017-12-06 04:24] LABS: Baso % (Auto) 0.8 % (0.0-2.0); Eos # (Auto) 0.2 th/mm3 (0.0-0.4); Eos % (Auto) 5.3 % (0.0-4.0); Hematocrit 40.5 % (39.0-51.0); Hemoglobin 13.1 gm/dL (13.0-17.0); Lymph # (Auto) 0.6 th/mm3 (1.0-4.8); Lymph % (Auto) 13.1 % (9.0-44.0); Mean Corpuscular HGB Conc 32.4 % (32.0-36.0); Mean Corpuscular Hemoglobin 29.1 pg (27.0-34.0); Mean Corpuscular Volume 89.8 fL (80.0-100.0); Mean Platelet Volume 9.4 fL (7.0-11.0); Mono # (Auto) 0.4 th/mm3 (0.0-0.9); Mono % (Auto) 9.2 % (0.0-8.0); Neut # (Auto) 3.3 th/mm3 (1.8-7.7); Neut % (Auto) 71.6 % (16.0-70.0); Platelet Count 222 th/mm3 (150-450); Red Blood Count 4.51 mil/mm3 (4.50-5.90); Red Cell Distribution Width 14.5 % (11.6-17.2); White Blood Count 4.6 th/mm3 (4.0-11.0)
[2017-12-06 04:48] LABS: Activated Partial Thrombo Time 30.1 sec (24.3-30.1); INR 1.1 Ratio; Prothrombin Time 11.1 sec (9.8-11.6)
[2017-12-06 04:51] LABS: Alanine Aminotransferase 37 U/L (12-78); Phosphorus 2.3 mg/dL (2.5-4.9)
[2017-12-06 04:54] LABS: Alkaline Phosphatase 75 U/L (45-117); Total Protein 7.2 g/dL (6.4-8.2)
[2017-12-06 04:56] LABS: Albumin 1.7 g/dL (3.4-5.0); Anion Gap 6 meq/L (5-15); Aspartate Aminotransferase 59 U/L (15-37); Blood Urea Nitrogen 27 mg/dL (7-18); Calcium 8.2 mg/dL (8.5-10.1); Carbon Dioxide 29.7 meq/L (21.0-32.0); Chloride 100 meq/L (98-107); Glomerular Filtration Rate Greater Than 89 mL/min (>89); Glucose,Random 97 mg/dL (74-106); Magnesium 1.9 mg/dL (1.5-2.5); Sodium 136 meq/L (136-145)
--- NOTE | 2017-12-06 05:51 | XR ---
EXAM DATE: 12/06/2017 5:43 AM EDT AGE/SEX: 57 years / Male INDICATIONS: Respiratory failure. CLINICAL DATA: This is the patient's subsequent encounter. Patient reports that signs and symptoms h ave been present for 3 days and indicates a pain score of Nonresponsive. MEDICAL/SURGICAL HISTORY: Congestive heart failure. None. COMPARISON: C, CHEST 1V SINGLE AP, 12/04/2017. . FINDINGS: The ET tube is in a high position at the thoracic inlet 10 cm from the khushboo. The NG tube tip is in the distal esophagus. There is a right subclavian line in place with tip overlying the SVC. The heart size is normal. The lungs demonstrate diffuse increased interstitial markings. The costophrenic angl es are grossly clear. CONCLUSION: ET tube in high position at the thoracic inlet. NG tube in the distal esophagus. This should be advanced. Diffuse increased interstitial markings likely related to diffuse processes such as edema or diffuse infection. Electronically signed by: Mango Chapman MD 12/06/2017 5:49 AM EDT
[2017-12-06] MEDS: Heparin - SQ 10,000 UNITS/ML Vial SQ SCH ×3 (06:25→23:24)
--- NOTE | 2017-12-06 09:25 | P.PNID ---
Subjective Remarks: Patient is a 57-year-old male, brought into the hospital after he was noted by his friend to have some altered mental status. He was noted to have a blood sugar of 50 in the ambulance and he received some dextrose with some improvement in his mentation. He was able to give some history to the ED MD, and admitted that he has been using cocaine, but he has denied any chest pain, shortness of breath. In the emergency room he was found to have an elevated creatinine of 2.4, potassium of 7, elevated LFTs and CPK, as well as B natruretic peptide of 4307. He was acidotic. His mental status continued to deteriorate in the emergency room, and he developed progressive obtundation, and required emergent intubation. He also became hypotensive, and he had an echo done at bedside with severe biventricular dysfunction with an EF of less than 10%. He was placed on epinephrine for cardiogenic shock. Since that time patient has remained intubated. He had emergent hemodialysis, and his electrolytes improved, as well as his creatinine. He is off HD now. He has moderate clear secretions in his ET. He has not been tolerating CPAP trials. Palliative medicine is also following patient, and he has DNR status. Patient has history of cardiomyopathy with a prior EF of 20%, and had undergone mitral valve repair back in June 2017. During his mitral valve surgery he had a preserved LV function, but post operative, he apparently continued to use cocaine and had subsequent hospital admission with documentation of a decrease in his EF to about 20%. On this admission patient had HIV testing, and the results came back positive. Over the last 2448 hrs., his temperature had increased. He had cultures done, and his sputum culture is growing Enterobacter and Klebsiella, and his urine culture has E. coli ESBL positive. Patient currently is afebrile. His hemodynamics are stable. Monitor shows sinus rhythm, with frequent PACs. His chest x-ray has evidence of pulmonary vascular congestion. Infectious disease consultation has been requested to assist with management of his multiple infections. Notes reviewed Temps higher overnight Remains on the vent Last CXR 12/04 improving CD4 count 60 ESBL E.coli in the urine Sputum with Enterobacter and Kleb Antibiotics: meropenem Lines: RSC TLC Past Medical History: COPD (chronic obstructive pulmonary disease) Diabetes Gout Non-ischemic cardiomyopathy CHF (congestive heart failure) Cocaine use Hypertension H/O mitral valve repair Hep C HIV Allergies/Adverse Reactions: Allergies No Known Allergies Allergy (Unverified 11/19/17 04:45) Objective Vital Signs 12/05/17 10:31 12/05/17 10:37 12/05/17 11:00 Temperature Pulse Rate 134 H 137 H 103 H Respiratory Rate 48 H 13 0 L Blood Pressure 173/114 H 113/76 Pulse Oximetry 99 12/05/17 11:30 12/05/17 11:39 12/05/17 12:00 Temperature 99.3 F Pulse Rate 108 H 103 H Respiratory Rate 16 16 16 Blood Pressure 133/86 133/88 Pulse Oximetry 87 L 99 12/05/17 12:30 12/05/17 13:00 12/05/17 13:30 Temperature Pulse Rate 97 H 96 H 93 H Respiratory Rate 16 16 16 Blood Pressure 83/62 L 113/72 108/68 Pulse Oximetry 84 L 99 99 12/05/17 14:00 12/05/17 14:30 12/05/17 15:00 Temperature Pulse Rate 83 81 82 Respiratory Rate 0 L 1 L 16 Blood Pressure 105/68 107/73 113/65 Pulse Oximetry 77 L 100 97 12/05/17 15:30 12/05/17 16:00 12/05/17 16:05 Temperature 99 F Pulse Rate 82 83 84 Respiratory Rate 16 16 16 Blood Pressure 108/74 100/64 Pulse Oximetry 97 96 12/05/17 16:29 12/05/17 16:30 12/05/17 17:00 Temperature Pulse Rate 83 83 101 H Respiratory Rate 15 12 Blood Pressure 107/67 109/70 Pulse Oximetry 100 95 100 12/05/17 17:05 12/05/17 17:09 12/05/17 17:30 Temperature Pulse Rate 97 H 87 86 Respiratory Rate 15 16 13 Blood Pressure 121/87 115/88 129/91 H Pulse Oximetry 100 100 12/05/17 18:00 12/05/17 18:30 12/05/17 19:00 Temperature Pulse Rate 81 82 81 Respiratory Rate 16 16 16 Blood Pressure 99/64 L 117/84 113/77 Pulse Oximetry 100 100 100 12/05/17 19:30 12/05/17 20:00 12/05/17 20:30 Temperature 98.3 F Pulse Rate 79 79 80 Respiratory Rate 16 16 16 Blood Pressure 114/77 112/74 114/77 Pulse Oximetry 100 100 100 12/05/17 20:34 12/05/17 21:00 12/05/17 21:30 Temperature Pulse Rate 80 81 101 H Respiratory Rate 16 16 16 Blood Pressure 116/81 131/84 Pulse Oximetry 12/05/17 22:00 12/05/17 22:30 12/05/17 23:00 Temperature Pulse Rate 85 83 90 Respiratory Rate 16 16 16 Blood Pressure 122/77 115/70 117/76 Pulse Oximetry 100 97 99 12/05/17 23:30 12/06/17 00:00 12/06/17 00:30 Temperature 100.6 F H Pulse Rate 86 101 H 86 Respiratory Rate 16 17 16 Blood Pressure 113/69 138/64 102/61 Pulse Oximetry 97 81 L 98 12/06/17 01:00 12/06/17 01:30 12/06/17 01:39 Temperature Pulse Rate 86 84 Respiratory Rate 16 16 16 Blood Pressure 120/76 116/73 Pulse Oximetry 98 98 99 12/06/17 02:00 12/06/17 02:30 12/06/17 03:00 Temperature Pulse Rate 88 97 H 92 H Respiratory Rate 16 16 16 Blood Pressure 119/78 120/80 118/74 Pulse Oximetry 100 100 98 12/06/17 03:30 12/06/17 03:58 12/06/17 04:00 Temperature 99.6 F Pulse Rate 88 87 94 H Respiratory Rate 16 16 13 Blood Pressure 119/79 119/84 Pulse Oximetry 100 98 12/06/17 04:10 12/06/17 08:26 12/06/17 08:27 Temperature Pulse Rate 104 H Respiratory Rate 16 18 16 Blood Pressure Pulse Oximetry 97 100 Intake & Output 12/05/17 12/06/17 12/06/17 18:59 06:59 18:59 Intake Total 483 / 483 1393 / 1393 Output Total 1000 / 1000 400 / 400 Balance -517 / -517 993 / 993 Weight 71 kg Intake: IV 743 / 743 Versed Inj 50 mg In 50 ml @ 2 50 / 50 50 / 50 MG/HR 2 mls/hr IV.CONT TITRATE PRN Rx#:[id number] Primacor Inj 20 MG In NS Inj 80 33 / 33 ML @ 0.5 MCG/KG/MIN 10.5 mls/ hr IV.CONT .Q9H32M [facility] Rx#: [id number] D10W Inj 1,000 ML @ 30 mls/hr 693 / 693 IV.SIG .Q24H [facility] Rx#:[id number] Oral 0 / 0 Tube Feeding 400 / 400 530 / 530 Water Bolus Amount 120 / 120 Output: Hemodialysis Amount 0 / 0 Urine Amount (Catheter) 1000 / 1000 400 / 400 Condom 1000 / 1000 400 / 400 Other: Date of Last Bowel Movement 12/05/17 12/05/17 # Bowel Movements 2 0 # Incontinent Bowel Movements 0 11/29/17 12:00 Blood - Peripheral Aerobic Blood Culture - Final No growth in 5 days 11/29/17 12:00 Blood - Peripheral Anaerobic Blood Culture - Final No growth in 5 days 11/29/17 11:55 Blood - Peripheral Aerobic Blood Culture - Final No growth in 5 days 11/29/17 11:55 Blood - Peripheral Anaerobic Blood Culture - Final No growth in 5 days Lab - Hematology Results 12/05/17 12/06/17 03:41 04:10 WBC 4.2 4.6 RBC 4.39 L 4.51 Hgb 12.8 L 13.1 Hct 39.6 40.5 MCV 90.3 89.8 MCH 29.3 29.1 MCHC 32.4 32.4 RDW 14.5 14.5 Plt Count 204 222 MPV 9.5 9.4 Neut % (Auto) 73.7 H 71.6 H Lymph % (Auto) 11.9 13.1 Boyd % (Auto) 7.8 9.2 H Eos % (Auto) 5.6 H 5.3 H Baso % (Auto) 1.0 0.8 Neut # (Auto) 3.1 3.3 Lymph # (Auto) 0.5 L 0.6 L Boyd # (Auto) 0.3 0.4 Eos # (Auto) 0.2 0.2 Baso # (Auto) 0.0 0.0 WBC Differential . . Differential Comment Auto diff final Auto diff final Lab - Chemistry Results 12/04/17 12/04/17 12/04/17 14:03 17:07 19:43 Sodium Potassium Chloride Carbon Dioxide Anion Gap BUN Creatinine Estimated GFR POC Glucose 110 102 115 H Random Glucose Calcium Phosphorus Magnesium Total Bilirubin AST ALT Alkaline Phosphatase Ammonia Total Protein Albumin 0812/05/17 12/05/17 23:58 03:41 05:17 Sodium 137 Potassium 3.6 Chloride 100 Carbon Dioxide 30.6 Anion Gap 6 BUN 31 H Creatinine 1.04 Estimated GFR 89 POC Glucose 123 H 93 Random Glucose 101 Calcium 8.1 L Phosphorus Magnesium Total Bilirubin AST ALT Alkaline Phosphatase Ammonia Total Protein Albumin 12/05/17 12/05/17 12/05/17 11:14 18:30 23:55 Sodium Potassium Chloride Carbon Dioxide Anion Gap BUN Creatinine Estimated GFR POC Glucose 112 H 103 77 Random Glucose Calcium Phosphorus Magnesium Total Bilirubin AST ALT Alkaline Phosphatase Ammonia Total Protein Albumin 12/06/17 12/06/17 12/06/17 04:10 04:10 05:52 Sodium 136 Potassium 4.0 Chloride 100 Carbon Dioxide 29.7 Anion Gap 6 BUN 27 H Creatinine 0.79 Estimated GFR Greater than 89 POC Glucose 109 Random Glucose 97 Calcium 8.2 L Phosphorus 2.3 L Magnesium 1.9 Total Bilirubin 0.5 AST 59 H ALT 37 Alkaline Phosphatase 75 Ammonia 38 H Total Protein 7.2 Albumin 1.7 L Imaging: ITS Impressions Abdomen/Pelvis CT 11/19/17 03:55 CONCLUSION: 1. Limited, suboptimal examination performed without intravenous or oral contrast. The study is degraded by motion artifact as well. 2. Abnormal bowel gas pattern with multiple small air-fluid levels. The bowel is suboptimally visualized and evaluated secondary to the lack of the intravenous and oral contrast as well as diffuse ascites. This may represent a gastroenteritis and/or ileus. Obstruction is less likely. 3. Diffuse ascites throughout the abdomen and pelvis. 4. Moderate size right effusion which is increased from the prior study. There is a new small left effusion. 5. Moderate cardiomegaly. 6. No definite gallstones identified. Head CT 11/19/17 03:55 CONCLUSION: 1. No acute hemorrhage or mass effect. 2. Mild motion and streak artifact. . Head MRI 12/05/17 00:00 CONCLUSION: 1. Edema with restricted diffusion in the medial right superior cerebellum. Imaging findings are characteristic of recent ischemia. 2. Chronic findings include generalized cerebral atrophy with moderate chronic periventricular and subcortical white matter signal change characteristic of chronic microvascular ischemia. The punctate area of signal change in the right centrum semiovale is suspected to represent white matter signal change but nonacute ischemia. Chest X-Ray 12/06/17 06:00 CONCLUSION: ET tube in high position at the thoracic inlet. NG tube in the distal esophagus. This should be advanced. Diffuse increased interstitial markings likely related to diffuse processes such as edema or diffuse infection. Physical Exam: GENERAL: Sedated, on the vent, looks ok SKIN: Cool and dry. No generalized rash, no ecchymoses and no evidence of embolic lesions. HEAD: Atraumatic. Normocephalic. No temporal wasting, or tenderness. EYES: [place] conjunctiva. No petechia or hemorrhage. Pupils equal, round and reactive to light. No scleral icterus. EARS, NOSE AND THROAT: Nose without bleeding or purulent nasal discharge. He is orally intubated. NECK: Trachea midline. Supple and not tender, no meningeal signs CARDIOVASCULAR: Irregular rate and rhythm. No murmurs, rubs or gallops heard. Sternotomy scar compatible with surgical history. RESPIRATORY: Coarse breath sounds bilaterally, decreased at the bases. ABDOMEN: Soft, non-tender, nondistended. Bowel sounds present and normoactive. No guarding. No rebound. No organomegaly. EXTREMITIES: No clubbing, cyanosis, or edema. No calf tenderness. Well perfused and warm. NEUROLOGICAL: Opens eyes when stimulated, not interacting. No Babinski, or ankle clonus. PSYCHIATRIC: Unable to assess LINE: No evidence of infection, has RSC TLC : Condom cath in place, urine looks ok. Assessment and Plan - Plan Impression Fevers since 11/28, has been on vent since 11/19 - temps higher again - has HCAP/VAP, C/S with Enterobacter and Klebsiella - UTI, UC with E coli ESBL+ Kleb and Enterobacter PNA E coli ESBL UTI Respiratory failure, CHF, PNA Cardiomyopathy, EF <10% Prior MV repair Active cocaine use Newly Dx HIV, CD4 count 60 S/P renal failure, had 2 HD, renal function improved Recommendation Continue Meropenem BC today Repeat UA and C/S Add Diflucan Monitor temps Monitor progress Weaning as tolerated per CCM Dr Jered Garcia covering this weekend
--- NOTE | 2017-12-06 09:29 | P.PNCC ---
Subjective Subjective Remarks/Hospital Course: 11/19: This is a 57yM with history of cardiomyopathy and an EF 20% who recently underwent mitral valve repair for severe MR. At that time, he had a preserved LVEF. However, he continued to use illicit cocaine, and on subsequent hospital admissions, his EF had fallen to 20%. He represents today with altered mental status, endorsing cocaine use. On further evaluation, he has a potassium of 7, Cr 2.4, AST/ALT 200/72, CK 1302, BNP 4307, co2 14. On my evaluation he is obtunded and agonally breathing, intermittently tachypneic. I performed bedside critical care echo which demonstrated a severe biventricular dysfunction and an EF < 10%. there was spontaneous echo contrast in the LV and the aortic valve appeared to open only minimally due to low-flow. Patient is grossly anasarcic with 3+ edema bilaterally up to the abdomen. he has JVD above the level of the mandible. I emergently intubated the patient (see separate procedure note for details). I emergently placed arterial, central lines, and dialysis catheter. potassium did not improve with medical therapy. we consulted nephrology for emergent HD. I also placed the patient on epinephrine drip for cardiogenic shock. due to the patient's mental status and clinical status, no additional information is available from him. ROS unobtainable. 11/20: Remains sedated, orally intubated on mechanical ventilation. Dialyzed this morning. Remains on pressors. 11/21: Remains sedated, orally intubated on mechanical ventilation. Hypothermic this morning. 11/22: Remains sedated, orally intubated on mechanical ventilation. Dialysis scheduled today 11/23: Remains sedated, orally intubated on mechanical ventilation. On milrinone. 11/24, 11/25: Remains sedated, orally intubated on mechanical ventilation. Tolerating tube feeds. 11/26: Sedated, orally intubated on mechanical ventilation. Tolerating tube feeds. 11/27 No events overnight. Sedated with Versed and intubated. On Milrinone drip. 11/29 Patient is sedated with Versed and intubated. Remains on Milrinone. T: 100.4 last night. Had 1 run (6 beats) asymptomatic Vtach overnight. Gets tachycardic and tachypneic with CPAP trials. 11/30 Patient remains sedated and intubated. T:100.4 last night. Not tolerating CPAP trials. 12/01 No events overnight. T:100.0 last night. Sedated with versed and on Milrinone. 12/02 Patient remains intubated and sedated. T;100.0 last night. On Versed and Diprivan infusion for sedation. Not tolerating CPAP trials. 12/03 No events overnight. Sedated and intubated. On Milrinone. Afebrile. 12/04 Patient remains sedated and intubated. Afebrile. 12/05: Afebrile. Start back on midazolam drip due to tachycardia/agitation. Heart rate currently in the 150s. Did not tolerate CPAP trial. Remains on milrinone at 0.25 mcg/kg/min Subjective 12/06: Resting comfortably in bed. Remains on midazolam drip at 6 mg an hour. MRI brain yesterday revealed right-sided superior cerebellar CVA with some edema. Awaiting family decision for tracheostomy and PEG tube placement Objective Vital Signs / I&O: Vital Signs 12/05/17 10:31 12/05/17 10:37 12/05/17 11:00 Temperature Pulse Rate 134 H 137 H 103 H Respiratory Rate 48 H 13 0 L Blood Pressure 173/114 H 113/76 Pulse Oximetry 99 12/05/17 11:30 12/05/17 11:39 12/05/17 12:00 Temperature 99.3 F Pulse Rate 108 H 103 H Respiratory Rate 16 16 16 Blood Pressure 133/86 133/88 Pulse Oximetry 87 L 99 12/05/17 12:30 12/05/17 13:00 12/05/17 13:30 Temperature Pulse Rate 97 H 96 H 93 H Respiratory Rate 16 16 16 Blood Pressure 83/62 L 113/72 108/68 Pulse Oximetry 84 L 99 99 12/05/17 14:00 12/05/17 14:30 12/05/17 15:00 Temperature Pulse Rate 83 81 82 Respiratory Rate 0 L 1 L 16 Blood Pressure 105/68 107/73 113/65 Pulse Oximetry 77 L 100 97 12/05/17 15:30 12/05/17 16:00 12/05/17 16:05 Temperature 99 F Pulse Rate 82 83 84 Respiratory Rate 16 16 16 Blood Pressure 108/74 100/64 Pulse Oximetry 97 96 12/05/17 16:29 12/05/17 16:30 12/05/17 17:00 Temperature Pulse Rate 83 83 101 H Respiratory Rate 15 12 Blood Pressure 107/67 109/70 Pulse Oximetry 100 95 100 12/05/17 17:05 12/05/17 17:09 12/05/17 17:30 Temperature Pulse Rate 97 H 87 86 Respiratory Rate 15 16 13 Blood Pressure 121/87 115/88 129/91 H Pulse Oximetry 100 100 12/05/17 18:00 12/05/17 18:30 12/05/17 19:00 Temperature Pulse Rate 81 82 81 Respiratory Rate 16 16 16 Blood Pressure 99/64 L 117/84 113/77 Pulse Oximetry 100 100 100 12/05/17 19:30 12/05/17 20:00 12/05/17 20:30 Temperature 98.3 F Pulse Rate 79 79 80 Respiratory Rate 16 16 16 Blood Pressure 114/77 112/74 114/77 Pulse Oximetry 100 100 100 12/05/17 20:34 12/05/17 21:00 12/05/17 21:30 Temperature Pulse Rate 80 81 101 H Respiratory Rate 16 16 16 Blood Pressure 116/81 131/84 Pulse Oximetry 12/05/17 22:00 12/05/17 22:30 12/05/17 23:00 Temperature Pulse Rate 85 83 90 Respiratory Rate 16 16 16 Blood Pressure 122/77 115/70 117/76 Pulse Oximetry 100 97 99 12/05/17 23:30 12/06/17 00:00 12/06/17 00:30 Temperature 100.6 F H Pulse Rate 86 101 H 86 Respiratory Rate 16 17 16 Blood Pressure 113/69 138/64 102/61 Pulse Oximetry 97 81 L 98 12/06/17 01:00 12/06/17 01:30 12/06/17 01:39 Temperature Pulse Rate 86 84 Respiratory Rate 16 16 16 Blood Pressure 120/76 116/73 Pulse Oximetry 98 98 99 12/06/17 02:00 12/06/17 02:30 12/06/17 03:00 Temperature Pulse Rate 88 97 H 92 H Respiratory Rate 16 16 16 Blood Pressure 119/78 120/80 118/74 Pulse Oximetry 100 100 98 12/06/17 03:30 12/06/17 03:58 12/06/17 04:00 Temperature 99.6 F Pulse Rate 88 87 94 H Respiratory Rate 16 16 13 Blood Pressure 119/79 119/84 Pulse Oximetry 100 98 12/06/17 04:10 12/06/17 08:26 12/06/17 08:27 Temperature Pulse Rate 104 H Respiratory Rate 16 18 16 Blood Pressure Pulse Oximetry 97 100 Intake & Output 12/05/17 12/06/17 12/06/17 18:59 06:59 18:59 Intake Total 483 / 483 1393 / 1393 Output Total 1000 / 1000 400 / 400 Balance -517 / -517 993 / 993 Weight 71 kg Intake: IV 83 / 83 743 / 743 Versed Inj 50 mg In 50 ml @ 2 50 / 50 50 / 50 MG/HR 2 mls/hr IV.CONT TITRATE PRN Rx#:[id number] Primacor Inj 20 MG In NS Inj 80 33 / 33 ML @ 0.5 MCG/KG/MIN 10.5 mls/ hr IV.CONT .Q9H32M [facility] Rx#: [id number] Inj 1,000 ML @ 30 mls/hr 693 / 693 IV.SIG .Q24H [facility] Rx#:[id number] Oral 0 / 0 Tube Feeding 400 / 400 530 / 530 Water Bolus Amount 120 / 120 Output: Hemodialysis Amount 0 / 0 Urine Amount (Catheter) 1000 / 1000 400 / 400 Condom 1000 / 1000 400 / 400 Other: Date of Last Bowel Movement 12/05/17 12/05/17 # Bowel Movements 2 0 # Incontinent Bowel Movements 0 Result Diagrams: 12/06/17 04:10 12/06/17 04:10 Other Results: Microbiology 11/29/17 12:00 Blood - Peripheral Aerobic Blood Culture - Final No growth in 5 days 11/29/17 12:00 Blood - Peripheral Anaerobic Blood Culture - Final No growth in 5 days 11/29/17 11:55 Blood - Peripheral Aerobic Blood Culture - Final No growth in 5 days 11/29/17 11:55 Blood - Peripheral Anaerobic Blood Culture - Final No growth in 5 days 11/27/17 13:30 Catheterized Urine Urine Culture - Final Escherichia coli ESBL positive 11/27/17 13:20 Sputum - Endotracheal Gram Stain - Final 11/27/17 13:20 Sputum - Endotracheal Sputum Culture - Final Enterobacter cloacae Klebsiella pneumoniae 11/19/17 11:46 Blood - Peripheral Aerobic Blood Culture - Final No growth in 5 days 11/19/17 11:46 Blood - Peripheral Anaerobic Blood Culture - Final No growth in 5 days 11/19/17 08:20 Blood - Peripheral Aerobic Blood Culture - Final No growth in 5 days 11/19/17 08:20 Blood - Peripheral Anaerobic Blood Culture - Final No growth in 5 days 11/19/17 06:35 Catheterized Urine Urine Culture - Final Enterococcus faecalis Imaging: Abdomen/Pelvis CT 11/19/17 03:55 CONCLUSION: 1. Limited, suboptimal examination performed without intravenous or oral contrast. The study is degraded by motion artifact as well. 2. Abnormal bowel gas pattern with multiple small air-fluid levels. The bowel is suboptimally visualized and evaluated secondary to the lack of the intravenous and oral contrast as well as diffuse ascites. This may represent a gastroenteritis and/or ileus. Obstruction is less likely. 3. Diffuse ascites throughout the abdomen and pelvis. 4. Moderate size right effusion which is increased from the prior study. There is a new small left effusion. 5. Moderate cardiomegaly. 6. No definite gallstones identified. Chest X-Ray 11/19/17 03:55 CONCLUSION: 1. Mild hazy opacity is now noted in the right perihilar region concerning for mild pulmonary edema. 2. The heart size remains mildly enlarged and appearance. Head CT 11/19/17 03:55 CONCLUSION: 1. No acute hemorrhage or mass effect. 2. Mild motion and streak artifact. . Chest X-Ray 11/19/17 08:50 CONCLUSION: 1. ETT in good position. NGT beyond the GE junction. Central lines in good position. 2. Persistent atypical pulmonary edema pattern. Chest X-Ray 11/27/17 08:49 CONCLUSION: 1. Mild to moderate pulmonary vascular congestion. 2. Cardiomegaly. 3. Tiny bilateral pleural effusions. 4. Multiple tubes and lines are stable. Chest X-Ray 12/04/17 07:53 CONCLUSION: Significantly improved aeration. Endotracheal tube tip is a bit high Head MRI 12/05/17 00:00 CONCLUSION: 1. Edema with restricted diffusion in the medial right superior cerebellum. Imaging findings are characteristic of recent ischemia. 2. Chronic findings include generalized cerebral atrophy with moderate chronic periventricular and subcortical white matter signal change characteristic of chronic microvascular ischemia. The punctate area of signal change in the right centrum semiovale is suspected to represent white matter signal change but nonacute ischemia. Chest X-Ray 12/06/17 06:00 CONCLUSION: ET tube in high position at the thoracic inlet. NG tube in the distal esophagus. This should be advanced. Diffuse increased interstitial markings likely related to diffuse processes such as edema or diffuse infection. Objective Remarks: GENERAL: Patient is 57 yo intubated and sedated SKIN: Warm and dry. HEAD: Normocephalic. EYES: No scleral icterus. No injection or drainage. NECK: Supple, trachea midline. No JVD or lymphadenopathy. CARDIOVASCULAR: Regular rate and rhythm without murmurs, gallops, or rubs. RESPIRATORY: Breath sounds equal bilaterally. No accessory muscle use. GASTROINTESTINAL: Abdomen soft, non-tender, nondistended. MUSCULOSKELETAL: No cyanosis, or edema. Neuro: Sedated. Inconsistent Assessment and Plan - Assessment and Plan Plan: Neurologic: Acute toxic encephalopathy Acute cocaine intoxication Acute metabolic encephalopathy secondary to shock Right superior cerebellar CVA On midazolam drip currently at 6 mg an hour for sedation while intubated Morphine sulfate 4 mg IV every 2 hours as needed pain Daily sedation vacation. Monitor neuro status. MRI brain 12/05 revealed restricted diffusion in the medial right superior cerebellum. Chronic periventricular and subcortical white matter signal change case of chronic microvascular ischemia. EEG 12/05 revealed moderate encephalopathy. No epileptic activity Respiratory: Acute hypoxic and hypercarbic respiratory failure Acute severe pulmonary edema Continue with vent support keep sats >92% On PRVC RR 16, TV550, IT:1.1, PEEP:5, FIO2: 30% Bronchodilators. SBT daily as maria elena. Patient is not tolerating CPAP trials- gets apneic, tachycardic and tachypneic. CXR today showed improved aeration of lung Palliative care spoke to family and now leaning toward trach/PEG. Spoke to patient's sister Kaylie today updated her on patient's condition and she states that he family will make final decision on trach/PEG vs transition to comfort care on Saturday. Cardiovascular: s/p Cardiogenic shock Acute severe systolic congestive heart failure exacerbation Acute type II non-ST elevation myocardial infarction secondary to demand ischemia known prior EF 20% (09/2017), Echo 11/27: EF <20%, mod- severe MR, PAP 53.9mmHg likely secondary to chronic cocaine use superimposed on cardiomyopathy. Monitor HR and BP keep MAP>65mmHg. on carvedilol 3.125mg BID. add Lisinopril 5mg daily On 12.5 mg twice daily carvedilol at home. Holding amlodipine 10 mg daily/ home medication On Milrinone drip at 0.25 mcg/kg/min. Lactic acid resolved 1.1 on 11/20 Renal: Acute kidney injury- resolved RACHID positive. Positive RACHID screen pending. Low complements noted. Monitor renal function, I/O's, electrolytes replacement per protocol. Vascath d/c 11/26. Continue furosemide 40mg IV daily Renal has followed FEN/GI: Hep C reactive Hypoalbuminemia Severe acute protein calorie malnutrition On tube feeds- Glucerna 1.5 with goal rate 55ml/hr Lansoprazole for GI prophylaxis. Docusate sodium/senna 1 tablet twice daily for bowel regimen Check C viral load and genotype Heme/ID: VAP -Enterobacter/Klebsiella E. coli UTI HIV - CD4 60 new diagnosis Daily CBC , HIV reactive on screening test. CD4 count: 60 Meropenem switched to ertapenem by ID, Monitor for signs of infections ( Fever , WBC). Check UA urine cxs: ESBL E.coli 11/27 Sputum cx: Enterobacter, Kleb BC 11/29: NGTD ID is following Endocrine: Acute hypoglycemia, severe SSI with accuchecks Prophylaxis: GI Prophylaxis Lansoprazole DVT Prophylaxis lansoprazole -- SCDs Subcu heparin Lines: 11/19 right subclavian 7 [place] triple-lumen catheter 11/19 right IJ 14 [place] 20 cm dialysis catheter d/c 11/26 Prognosis appears poor. Palliative care following to assist with deciding goals of therapy. Spoke to patient's sister Kaylie today updated her on patient's condition and she states that the family will make final decision on trach/PEG vs transition to comfort care on Saturday. Level 3
[2017-12-06] MEDS ORDERED: Sodium Phosphate Inj 30 MMOL in Sodium Chlor 0.9% Inj 250 ML IV.SIG ONE (10:00)
[2017-12-06] MEDS: Lisinopril 5 MG Tablet PO SCH (10:04)
[2017-12-06] MEDS: Senna/Docusate Sodium 8.6/50 MG Tablet PO SCH ×2 (10:05→20:00)
[2017-12-06] MEDS: Fluconazole 100 MG Tablet PO SCH (10:08)
--- NOTE | 2017-12-06 13:01 | P.PNPAL ---
Reason for Visit Reason for visit: a. To assist with evaluation and management of symptoms including: Altered mental status, edema b. To assist medical decision maker(s) with: better understanding of current medical conditions; weighing benefits/burdens of medical treatment options; making medical treatment decisions. Subjective Subjective/Interval History: Follow up medically necessary for symptom management and further clarification of goals of care. Patient seen and examined on MICU. Patient remains intubated, sedated on mechanical ventilation. Midazolam infusion at 6mg/hr. He remains on Milrinone infusion at 0.25 mcg/kg/min. No spontaneous breathing trials. Head MRI on 12/05 revealed edema with restricted diffusion in the medial right superior cerebellum. Findings characteristic of recent ischemia. Chronic findings include generalized cerebral atrophy with moderate chronic periventricular and subcortical white matter signal change characteristic of chronic microvascular ischemia. The punctate areas of the signal change in the right centrum 7-year-old father is suspected to represent white matter signal change but nonacute ischemia. EEG on 12/05/17 revealed abnormal study consistent with a moderate encephalopathy. No family at bedside. Awaiting family to come in today as promised to make a decision whether to proceed with tracheostomy and PEG placement or compassionately withdrawing from life support. Case discussed with bedside RN and Dr. Bello. Family had discussion with Dr. Bello and have postponed decision making to 12/09/17 Family/Friend Interactions: No family at bedside Advance Directives Living Will: Never completed Health Care Surrogate: Never completed Durable Power of Stamping Operator: Never completed Health Care Surrogate Name and Number: HCP: Jaky Medina [phone]/ Objective Vital Signs: Vital Signs 12/05/17 13:00 12/05/17 13:30 12/05/17 14:00 Temperature Pulse Rate 96 H 93 H 83 Respiratory Rate 16 16 0 L Blood Pressure 113/72 108/68 105/68 Pulse Oximetry 99 99 77 L 12/05/17 14:30 12/05/17 15:00 12/05/17 15:30 Temperature Pulse Rate 81 82 82 Respiratory Rate 1 L 16 16 Blood Pressure 107/73 113/65 108/74 Pulse Oximetry 100 97 97 12/05/17 16:00 12/05/17 16:05 12/05/17 16:29 Temperature 99 F Pulse Rate 83 84 83 Respiratory Rate 16 16 15 Blood Pressure 100/64 107/67 Pulse Oximetry 96 100 12/05/17 16:30 12/05/17 17:00 12/05/17 17:05 Temperature Pulse Rate 83 101 H 97 H Respiratory Rate 12 15 Blood Pressure 109/70 121/87 Pulse Oximetry 95 100 12/05/17 17:09 12/05/17 17:30 12/05/17 18:00 Temperature Pulse Rate 87 86 81 Respiratory Rate 16 13 16 Blood Pressure 115/88 129/91 H 99/64 L Pulse Oximetry 100 100 100 12/05/17 18:30 12/05/17 19:00 12/05/17 19:30 Temperature Pulse Rate 82 81 79 Respiratory Rate 16 16 16 Blood Pressure 117/84 113/77 114/77 Pulse Oximetry 100 100 100 12/05/17 20:00 12/05/17 20:30 12/05/17 20:34 Temperature 98.3 F Pulse Rate 79 80 80 Respiratory Rate 16 16 16 Blood Pressure 112/74 114/77 Pulse Oximetry 100 100 12/05/17 21:00 12/05/17 21:30 12/05/17 22:00 Temperature Pulse Rate 81 101 H 85 Respiratory Rate 16 16 16 Blood Pressure 116/81 131/84 122/77 Pulse Oximetry 100 12/05/17 22:30 12/05/17 23:00 12/05/17 23:30 Temperature Pulse Rate 83 90 86 Respiratory Rate 16 16 16 Blood Pressure 115/70 117/76 113/69 Pulse Oximetry 97 99 97 12/06/17 00:00 12/06/17 00:30 12/06/17 01:00 Temperature 100.6 F H Pulse Rate 101 H 86 86 Respiratory Rate 17 16 16 Blood Pressure 138/64 102/61 120/76 Pulse Oximetry 81 L 98 98 12/06/17 01:30 12/06/17 01:39 12/06/17 02:00 Temperature Pulse Rate 84 88 Respiratory Rate 16 16 16 Blood Pressure 116/73 119/78 Pulse Oximetry 98 99 100 12/06/17 02:30 12/06/17 03:00 12/06/17 03:30 Temperature Pulse Rate 97 H 92 H 88 Respiratory Rate 16 16 16 Blood Pressure 120/80 118/74 119/79 Pulse Oximetry 100 98 100 12/06/17 03:58 12/06/17 04:00 12/06/17 04:10 Temperature 99.6 F Pulse Rate 87 94 H Respiratory Rate 16 13 16 Blood Pressure 119/84 Pulse Oximetry 98 97 12/06/17 04:39 12/06/17 05:00 12/06/17 05:30 Temperature Pulse Rate 114 H 95 H 99 H Respiratory Rate 17 16 16 Blood Pressure 119/88 110/70 114/78 Pulse Oximetry 76 L 95 100 12/06/17 06:00 12/06/17 06:30 12/06/17 07:00 Temperature Pulse Rate 87 89 84 Respiratory Rate 16 16 16 Blood Pressure 109/64 121/82 108/66 Pulse Oximetry 95 100 98 12/06/17 07:30 12/06/17 08:00 12/06/17 08:26 Temperature 99.4 F Pulse Rate 84 85 104 H Respiratory Rate 16 16 18 Blood Pressure 134/82 122/77 Pulse Oximetry 100 100 12/06/17 08:27 12/06/17 08:30 12/06/17 09:00 Temperature Pulse Rate 98 H 92 H Respiratory Rate 16 16 16 Blood Pressure 128/82 127/80 Pulse Oximetry 100 100 100 12/06/17 09:30 12/06/17 10:00 12/06/17 10:30 Temperature Pulse Rate 96 H 91 H 97 H Respiratory Rate 16 16 16 Blood Pressure 124/79 123/72 125/86 Pulse Oximetry 100 100 99 12/06/17 11:00 12/06/17 11:30 12/06/17 11:38 Temperature Pulse Rate 115 H 105 H Respiratory Rate 16 16 16 Blood Pressure 119/86 119/81 Pulse Oximetry 100 100 Intake & Output 12/05/17 12/06/17 12/06/17 18:59 06:59 18:59 Intake Total 483 / 483 1393 / 1393 50 / 50 Output Total 1000 / 1000 400 / 400 Balance -517 / -517 993 / 993 50 / 50 Weight 71 kg Intake: IV 83 / 83 743 / 743 50 / 50 Versed Inj 50 mg In 50 ml @ 2 50 / 50 50 / 50 50 / 50 MG/HR 2 mls/hr IV.CONT TITRATE PRN Rx#:[id number] Primacor Inj 20 MG In NS Inj 80 33 / 33 ML @ 0.5 MCG/KG/MIN 10.5 mls/ hr IV.CONT .Q9H32M [facility]UD[facility] Rx#: [id number] D10W Inj 1,000 ML @ 30 mls/hr 693 / 693 IV.SIG .Q24H [facility] Rx#:[id number] Oral 0 / 0 Tube Feeding 400 / 400 530 / 530 Water Bolus Amount 120 / 120 Output: Hemodialysis Amount 0 / 0 Urine Amount (Catheter) 1000 / 1000 400 / 400 Condom 1000 / 1000 400 / 400 Other: Date of Last Bowel Movement 12/05/17 12/05/17 12/05/17 # Bowel Movements 2 0 # Incontinent Bowel Movements 0 Physical Exam: CONSTITUTIONAL/GENERAL: This is an adequately nourished patient, intubated, sedated, in no apparent distress. TUBES/LINES/DRAINS: right subclavian central line, ETT, Condom catheter,OGT, . SKIN: No jaundice, rashes, or lesions. No wounds seen anteriorly. Normothermic. HEAD: Atraumatic. Normocephalic. EYES: PERRLA. No scleral icterus. No injection or drainage. Fundi not examined. ENT: Nose without bleeding or purulent drainage. Orally intubated. NECK: Trachea midline. Supple, nontender. CARDIOVASCULAR: S1, S2, S3. Irregular rhythm, controlled rate without gallops, or rubs. Soft 1/6 systolic ejection murmur. No JVD. Pedal pulses+ve RESPIRATORY/CHEST: Symmetric, unlabored respirations. Rhonchi to auscultation. GASTROINTESTINAL: Abdomen soft, nondistended. Intermittent BS. OGT. Rectal bag in place GENITOURINARY: Without palpable bladder distension. Condom catheter MUSCULOSKELETAL: Extremities without clubbing or cyanosis, trace edema to BLE, 2 + to BUE. No mottling or clubbing. NEUROLOGICAL: Intubated, sedated. On Midazolam. Withdraws with all 4 extremities PSYCHIATRIC: Unable to assess. Currently sedated and calm. . Diagnostic Tests Laboratory: Laboratory Results - last 72 hr 12/03/17 12/03/17 12/04/17 18:17 23:51 04:54 WBC 4.2 RBC 4.38 L Hgb 12.9 L Hct 38.6 L MCV 88.2 MCH 29.4 MCHC 33.3 RDW 14.6 Plt Count 206 MPV 9.6 Neut % (Auto) 76.9 H Lymph % (Auto) 9.3 Catron % (Auto) 7.6 Eos % (Auto) 5.2 H Baso % (Auto) 1.0 Neut # (Auto) 3.2 Lymph # (Auto) 0.4 L Catron # (Auto) 0.3 Eos # (Auto) 0.2 Baso # (Auto) 0.0 WBC Differential . Differential Comment Auto diff final PT INR APTT Sodium Potassium Chloride Carbon Dioxide Anion Gap BUN Creatinine Estimated GFR POC Glucose 104 120 H Random Glucose Calcium Phosphorus Magnesium Total Bilirubin AST ALT Alkaline Phosphatase Ammonia Total Protein Albumin Hep C IgG Ab 12/04/17 12/04/17 12/04/17 04:54 14:03 17:07 WBC RBC Hgb Hct MCV MCH MCHC RDW Plt Count MPV Neut % (Auto) Lymph % (Auto) Catron % (Auto) Eos % (Auto) Baso % (Auto) Neut # (Auto) Lymph # (Auto) Catron # (Auto) Eos # (Auto) Baso # (Auto) WBC Differential Differential Comment PT INR APTT Sodium 138 Potassium 3.5 Chloride 103 Carbon Dioxide 30.1 Anion Gap 5 BUN 31 H Creatinine 0.91 Estimated GFR Greater than 89 POC Glucose 110 102 Random Glucose 84 Calcium 7.6 L Phosphorus Magnesium Total Bilirubin AST ALT Alkaline Phosphatase Ammonia Total Protein Albumin Hep C IgG Ab 12/04/17 12/04/17 12/05/17 19:43 23:58 03:41 WBC 4.2 RBC 4.39 L Hgb 12.8 L Hct 39.6 MCV 90.3 MCH 29.3 MCHC 32.4 RDW 14.5 Plt Count 204 MPV 9.5 Neut % (Auto) 73.7 H Lymph % (Auto) 11.9 Catron % (Auto) 7.8 Eos % (Auto) 5.6 H Baso % (Auto) 1.0 Neut # (Auto) 3.1 Lymph # (Auto) 0.5 L Catron # (Auto) 0.3 Eos # (Auto) 0.2 Baso # (Auto) 0.0 WBC Differential . Differential Comment Auto diff final PT INR APTT Sodium Potassium Chloride Carbon Dioxide Anion Gap BUN Creatinine Estimated GFR POC Glucose 115 H 123 H Random Glucose Calcium Phosphorus Magnesium Total Bilirubin AST ALT Alkaline Phosphatase Ammonia Total Protein Albumin Hep C IgG Ab 12/05/17 12/05/17 12/05/17 03:41 05:17 11:14 WBC RBC Hgb Hct MCV MCH MCHC RDW Plt Count MPV Neut % (Auto) Lymph % (Auto) Catron % (Auto) Eos % (Auto) Baso % (Auto) Neut # (Auto) Lymph # (Auto) Catron # (Auto) Eos # (Auto) Baso # (Auto) WBC Differential Differential Comment PT INR APTT Sodium 137 Potassium 3.6 Chloride 100 Carbon Dioxide 30.6 Anion Gap 6 BUN 31 H Creatinine 1.04 Estimated GFR 89 POC Glucose 93 112 H Random Glucose 101 Calcium 8.1 L Phosphorus Magnesium Total Bilirubin AST ALT Alkaline Phosphatase Ammonia Total Protein Albumin Hep C IgG Ab 12/05/17 12/05/17 12/05/17 11:15 18:30 23:55 WBC RBC Hgb Hct MCV MCH MCHC RDW Plt Count MPV Neut % (Auto) Lymph % (Auto) Catron % (Auto) Eos % (Auto) Baso % (Auto) Neut # (Auto) Lymph # (Auto) Catron # (Auto) Eos # (Auto) Baso # (Auto) WBC Differential Differential Comment PT INR APTT Sodium Potassium Chloride Carbon Dioxide Anion Gap BUN Creatinine Estimated GFR POC Glucose 103 77 Random Glucose Calcium Phosphorus Magnesium Total Bilirubin AST ALT Alkaline Phosphatase Ammonia Total Protein Albumin Hep C IgG Ab Reactive H 12/06/17 12/06/17 12/06/17 04:10 04:10 04:10 WBC 4.6 RBC 4.51 Hgb 13.1 Hct 40.5 MCV 89.8 MCH 29.1 MCHC 32.4 RDW 14.5 Plt Count 222 MPV 9.4 Neut % (Auto) 71.6 H Lymph % (Auto) 13.1 Catron % (Auto) 9.2 H Eos % (Auto) 5.3 H Baso % (Auto) 0.8 Neut # (Auto) 3.3 Lymph # (Auto) 0.6 L Catron # (Auto) 0.4 Eos # (Auto) 0.2 Baso # (Auto) 0.0 WBC Differential . Differential Comment Auto diff final PT 11.1 INR 1.1 APTT 30.1 Sodium 136 Potassium 4.0 Chloride 100 Carbon Dioxide 29.7 Anion Gap 6 BUN 27 H Creatinine 0.79 Estimated GFR Greater than 89 POC Glucose Random Glucose 97 Calcium 8.2 L Phosphorus 2.3 L Magnesium 1.9 Total Bilirubin 0.5 AST 59 H ALT 37 Alkaline Phosphatase 75 Ammonia Total Protein 7.2 Albumin 1.7 L Hep C IgG Ab 12/06/17 12/06/17 04:10 05:52 WBC RBC Hgb Hct MCV MCH MCHC RDW Plt Count MPV Neut % (Auto) Lymph % (Auto) Catron % (Auto) Eos % (Auto) Baso % (Auto) Neut # (Auto) Lymph # (Auto) Catron # (Auto) Eos # (Auto) Baso # (Auto) WBC Differential Differential Comment PT INR APTT Sodium Potassium Chloride Carbon Dioxide Anion Gap BUN Creatinine Estimated GFR POC Glucose 109 Random Glucose Calcium Phosphorus Magnesium Total Bilirubin AST ALT Alkaline Phosphatase Ammonia 38 H Total Protein Albumin Hep C IgG Ab Result Diagrams: 12/06/17 04:10 12/06/17 04:10 Microbiology: Microbiology 11/29/17 12:00 Aerobic Blood Culture - Final Blood - Peripheral No growth in 5 days Anaerobic Blood Culture - Final No growth in 5 days 11/29/17 11:55 Aerobic Blood Culture - Final Blood - Peripheral No growth in 5 days Anaerobic Blood Culture - Final No growth in 5 days Imaging: Abdomen/Pelvis CT 11/19/17 03:55 CONCLUSION: 1. Limited, suboptimal examination performed without intravenous or oral contrast. The study is degraded by motion artifact as well. 2. Abnormal bowel gas pattern with multiple small air-fluid levels. The bowel is suboptimally visualized and evaluated secondary to the lack of the intravenous and oral contrast as well as diffuse ascites. This may represent a gastroenteritis and/or ileus. Obstruction is less likely. 3. Diffuse ascites throughout the abdomen and pelvis. 4. Moderate size right effusion which is increased from the prior study. There is a new small left effusion. 5. Moderate cardiomegaly. 6. No definite gallstones identified. Head CT 11/19/17 03:55 CONCLUSION: 1. No acute hemorrhage or mass effect. 2. Mild motion and streak artifact. . Head MRI 12/05/17 00:00 CONCLUSION: 1. Edema with restricted diffusion in the medial right superior cerebellum. Imaging findings are characteristic of recent ischemia. 2. Chronic findings include generalized cerebral atrophy with moderate chronic periventricular and subcortical white matter signal change characteristic of chronic microvascular ischemia. The punctate area of signal change in the right centrum semiovale is suspected to represent white matter signal change but nonacute ischemia. Chest X-Ray 12/06/17 06:00 CONCLUSION: ET tube in high position at the thoracic inlet. NG tube in the distal esophagus. This should be advanced. Diffuse increased interstitial markings likely related to diffuse processes such as edema or diffuse infection. Procedures: 11/19/2017: Right radial arterial line placement 11/19/2017: Endotracheal intubation 11/19/2017: Right subclavian triple-lumen catheter placement 11/19/2017 right IJ dialysis catheter placement Dc`d 11/26/17 . 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 He was never and has no children. He was previously in the [employer]. 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 Legal: No living will or healthcare surrogate completed. Ethical issues impacting care: None noted. . Important Contacts: Mother: Angelina Medina healthcare proxy- Currently living with daughter, Kaylie Gama. Sister: Bryan Sharp Sister: Kamille Lucina Brother: Segundo Lucina Brother: Carter Chavez Sister: Kaylie Gama - , C [phone] . Prognosis: His prognosis is poor. He has end-stage heart disease now with an ejection fraction estimated to be less than 10% by nuclear medicine technician echo. He has suffered a decline in heart function since June 2017 when echocardiogram showed a 50-55% ejection fraction at the time of mitral valve repair. Patient continued to abuse cocaine and possibly other substances and when seen in [place] September 2017 for chest pain was found to have non-ischemic cardiomyopathy with a normal coronary artery circulation and ejection fraction of 20-25%. Echocardiogram at this admission shows cardiogenic shock with an EF less than 10%. He is now requiring inotropic support with milrinone and now has acute kidney injury requiring dialysis for both hyperkalemia and fluid overload. At this time he remains on life support, intubated, but is at elevated risk for continued complications and decline. He would be hospice appropriate if goals were consistent. . Code Status: No Code DNR (Do not reintubate) Plan: PLAN: Legal decision maker: At this time the patient is not capacitated for decision making and it is not certain that he will ever regain capacity. He was never and has no children. His mother would be his proxy decision maker per [place] statutes. She had previously been reported to me as demented and unable to make these decisions, however, her daughter, Kaylie, who is her caregiver disputes that and states that her mother is perfectly capable of making these decisions and wishes to be her son's decision-maker. In conversation with Ms. Medina, herself, she appeared appropriate and capable of decision-making. Goals: Aggressive short of no code. Awaiting family to come in today as promised to make a decision whether to proceed with tracheostomy and PEG placement or compassionately withdrawing from life support. Family had discussion with Dr. Bello and have postponed decision making to 12/09/17 CODE STATUS: DO NOT RESUSCITATE SYMPTOMS: * Altered mental status: Presented with altered mental status, positive for cocaine, hypoglycemic, hyperkalemic, in fulminant heart failure, minimally able to make his needs known. Shortly thereafter he required intubation and sedation. Bedside critical care echo showed severe biventricular dysfunction with EF less than 10%, aortic valve opening only minimally due to low flow. HIV positive-CD4 count 60. Patient continues to be agitated when sedation is weaned off. MRI brain on 12/05 revealed right sided superior cerebellar CVA with some edema. EEG on 12/05 revealed mild encephalopathy. No recommendations at this time * Edema: Edema is improving on hemodialysis, which is on hold after today's ultrafiltration as patient's renal status is stabilizing and is having some urine output. Given his severe heart failure, borderline hypotension and impaired renal function, this is likely to be an ongoing problem. Last hemodialysis on 11/23. Edema currently managed with Furosemide 40mgIVP daily. Trace edema to bilateral upper extremities. Elevate BLE. Monitor I &Os. Palliative care will continue to follow the patient during hospital course as condition evolves, to assist patient/decision-maker with understanding of their medical conditions, weighing benefits/burdens of treatment options, for clarification of goals of treatment. Additionally will assist with any symptoms of palliative concern. . Attestation Attestation: To help prompt me to consider important information that might be impacting today's encounter and assessment, information from prior notes written by myself or my colleagues may have been "brought forward" into today's note. My signature on this note, however, is an attestation that I personally performed the exam, history, and/or decision-making noted today, and, unless otherwise indicated, the interactions with patient, family, and staff as well as the review of records all occurred today. I also attest that the listed assessment and stated plan reflect my best clinical judgment today based on the combination of historical information, prior notes, and today's exam/ interactions. When time spent is documented, it refers only to time spent today by the signer, or if indicated, combined time spent today by collaborating physician/nurse practitioner.
[2017-12-06] MEDS: Milrinone Inj 20 MG in Sodium Chlor 0.9% Inj 80 ML IV.CONT SCH ×2 (16:09)
[2017-12-06] MEDS: Hypromellose 0.3% Opth Gel 10 GM Bottle EACH EYE SCH ×2 (16:30→19:59)
[2017-12-06] MEDS: Dextrose 10% in Water Inj 1,000 ML IV.SIG SCH (20:00)
[2017-12-06 20:25] LABS: Bilirubin,Urine Negative (Negative); Clarity,Urine Clear (Clear); Color,Urine Yellow (Yellw/Straw); Glucose,Urine (UA) Negative (Negative); Hyaline Casts,Urine 1 /lpf (0-3); Leukocyte Esterase,Urine Trace (Negative); Mucus,Urine Few /lpf (Occasional); Nitrite,Urine Negative (Negative); Urobilinogen,Urine 4 or Greater mg/dL (Less than 2)
--- NOTE | 2017-12-06 23:06 | MB ---
cc: Lemuel Hastings MD, PhD DATE: 12/06/2017 REASON FOR CONSULTATION: Stroke. HISTORY OF PRESENT ILLNESS: Mr. Chavez is a 57-year-old man who was admitted with cardiogenic shock with a low ejection fraction and history of recent cocaine use. He was found to have acute stroke in the right cerebellar hemisphere by MRI scan. PAST MEDICAL HISTORY: History of mitral valve repair for mitral regurgitation, cardiomyopathy with an ejection fraction of 20%, history of cocaine abuse, hypertension. CURRENT MEDICATIONS: 1. Tylenol. 2. Milk of magnesia. 3. Albuterol. 4. DuoNeb. 5. Dulcolax. 6. Coreg. 7. Lasix. 8. Diflucan. 9. Gentamicin with dialysis. 10. Heparin with dialysis. 11. Lactulose p.r.n. 12. Lisinopril 5 mg daily. 13. Prevacid 30 mg daily. 14. Magnesium oxide. 15. Versed drip. 16. Morphine sulfate. 17. Zofran p.r.n. 18. Potassium chloride p.r.n. 19. Propofol. 20. Senokot. NEUROLOGIC EXAMINATION: VITAL SIGNS: Blood pressure 122/80, pulse 100, respirations 16. HIGHER CORTICAL FUNCTION: He is nonresponsive. CRANIAL NERVES: The pupils are 2 mm, symmetric, reactive. Extraocular movements intact to doll maneuver. MOTOR: There is no spontaneous movement, no posturing, no withdrawal. REFLEXES: Symmetric. IMAGING STUDIES: MRI of brain, right cerebellar infarction as well as atrophy. Chronic ischemic demyelinization is present. CT brain, no acute changes identified. LABORATORY DATA: White count 4600, hemoglobin 13.1, hematocrit 40%, platelet count 222,000. Sodium 136, potassium 4, chloride 100, CO2 of 29.7, BUN 27, creatinine 0.79, glucose 77. IMPRESSION: Severe encephalopathy from shock and also cerebellar infarction, probably related to cocaine abuse. Lemuel Hastings MD, PhD JUAN/elyssa , 10:36 PM , 10:43 PM
[2017-12-06] MEDS: Acetaminophen 325 MG Tablet PO PRN (23:24)
[2017-12-07] MEDS: Insulin NovoLIN Regular Correctional Sugar Inj SQ SCH ×4 (00:07→17:34)
[2017-12-07] MEDS: Milrinone Inj 20 MG in Sodium Chlor 0.9% Inj 80 ML IV.CONT SCH ×3 (00:32→17:35)
[2017-12-07] MEDS: Midazolam 50 MG/50 ML Inj 50 MG/50 ML BAG IV.CONT PRN ×3 (03:29→23:51)
[2017-12-07 05:08] LABS: Baso % (Auto) 0.8 % (0.0-2.0); Eos # (Auto) 0.1 th/mm3 (0.0-0.4); Hematocrit 37.7 % (39.0-51.0); Hemoglobin 12.1 gm/dL (13.0-17.0); Lymph # (Auto) 0.5 th/mm3 (1.0-4.8); Lymph % (Auto) 7.3 % (9.0-44.0); Mean Corpuscular Hemoglobin 28.9 pg (27.0-34.0); Mean Corpuscular Volume 90.4 fL (80.0-100.0); Mean Platelet Volume 9.2 fL (7.0-11.0); Mono # (Auto) 0.4 th/mm3 (0.0-0.9); Neut # (Auto) 5.3 th/mm3 (1.8-7.7); Neut % (Auto) 83.9 % (16.0-70.0); Platelet Count 222 th/mm3 (150-450); Red Blood Count 4.17 mil/mm3 (4.50-5.90); Red Cell Distribution Width 14.8 % (11.6-17.2); White Blood Count 6.3 th/mm3 (4.0-11.0)
[2017-12-07] MEDS: Heparin - SQ 10,000 UNITS/ML Vial SQ SCH ×3 (05:16→21:36)
[2017-12-07 05:19] LABS: Anion Gap 5 meq/L (5-15); Blood Urea Nitrogen 26 mg/dL (7-18); Calcium 7.8 mg/dL (8.5-10.1); Chloride 101 meq/L (98-107); Glomerular Filtration Rate Greater Than 89 mL/min (>89); Glucose,Random 109 mg/dL (74-106); Magnesium 1.9 mg/dL (1.5-2.5); Phosphorus 2.7 mg/dL (2.5-4.9); Potassium 3.9 meq/L (3.5-5.1); Sodium 138 meq/L (136-145)
[2017-12-07] MEDS ORDERED: Potassium Chloride 25 MEQ Effervescent Tablet PO ONE (07:13)
--- NOTE | 2017-12-07 08:51 | P.PNCC ---
Subjective Subjective Remarks/Hospital Course: 11/19: This is a 57yM with history of cardiomyopathy and an EF 20% who recently underwent mitral valve repair for severe MR. At that time, he had a preserved LVEF. However, he continued to use illicit cocaine, and on subsequent hospital admissions, his EF had fallen to 20%. He represents today with altered mental status, endorsing cocaine use. On further evaluation, he has a potassium of 7, Cr 2.4, AST/ALT 200/72, CK 1302, BNP 4307, co2 14. On my evaluation he is obtunded and agonally breathing, intermittently tachypneic. I performed bedside critical care echo which demonstrated a severe biventricular dysfunction and an EF < 10%. there was spontaneous echo contrast in the LV and the aortic valve appeared to open only minimally due to low-flow. Patient is grossly anasarcic with 3+ edema bilaterally up to the abdomen. he has JVD above the level of the mandible. I emergently intubated the patient (see separate procedure note for details). I emergently placed arterial, central lines, and dialysis catheter. potassium did not improve with medical therapy. we consulted nephrology for emergent HD. I also placed the patient on epinephrine drip for cardiogenic shock. due to the patient's mental status and clinical status, no additional information is available from him. ROS unobtainable. 11/20: Remains sedated, orally intubated on mechanical ventilation. Dialyzed this morning. Remains on pressors. 11/21: Remains sedated, orally intubated on mechanical ventilation. Hypothermic this morning. 11/22: Remains sedated, orally intubated on mechanical ventilation. Dialysis scheduled today 11/23: Remains sedated, orally intubated on mechanical ventilation. On milrinone. 11/24, 11/25: Remains sedated, orally intubated on mechanical ventilation. Tolerating tube feeds. 11/26: Sedated, orally intubated on mechanical ventilation. Tolerating tube feeds. 11/27 No events overnight. Sedated with Versed and intubated. On Milrinone drip. 11/29 Patient is sedated with Versed and intubated. Remains on Milrinone. T: 100.4 last night. Had 1 run (6 beats) asymptomatic Vtach overnight. Gets tachycardic and tachypneic with CPAP trials. 11/30 Patient remains sedated and intubated. T:100.4 last night. Not tolerating CPAP trials. 12/01 No events overnight. T:100.0 last night. Sedated with versed and on Milrinone. 12/02 Patient remains intubated and sedated. T;100.0 last night. On Versed and Diprivan infusion for sedation. Not tolerating CPAP trials. 12/03 No events overnight. Sedated and intubated. On Milrinone. Afebrile. 12/04 Patient remains sedated and intubated. Afebrile. 12/05: Afebrile. Start back on midazolam drip due to tachycardia/agitation. Heart rate currently in the 150s. Did not tolerate CPAP trial. Remains on milrinone at 0.25 mcg/kg/min 12/06: Resting comfortably in bed. Remains on midazolam drip at 6 mg an hour. MRI brain yesterday revealed right-sided superior cerebellar CVA with some edema. Awaiting family decision for tracheostomy and PEG tube placement Subjective 12/07: T-max 101.2. Currently on midazolam drip at 10 mg an hour due to "agitation and tachypnea" overnight. 2 runs of nonsustained V. tach. Magnesium potassium being replaced. Objective Vital Signs / I&O: Vital Signs 12/06/17 09:00 12/06/17 09:30 12/06/17 10:00 Temperature Pulse Rate 92 H 96 H 91 H Respiratory Rate 16 16 16 Blood Pressure 127/80 124/79 123/72 Pulse Oximetry 100 100 100 12/06/17 10:30 12/06/17 11:00 12/06/17 11:30 Temperature Pulse Rate 97 H 115 H 105 H Respiratory Rate 16 16 16 Blood Pressure 125/86 119/86 119/81 Pulse Oximetry 99 100 100 12/06/17 11:38 12/06/17 12:00 12/06/17 12:30 Temperature Pulse Rate 93 H 92 H Respiratory Rate 16 16 16 Blood Pressure 110/59 L 108/62 Pulse Oximetry 100 100 12/06/17 13:00 12/06/17 13:30 12/06/17 14:00 Temperature Pulse Rate 90 92 H 93 H Respiratory Rate 16 16 16 Blood Pressure 135/77 129/81 130/68 Pulse Oximetry 100 100 100 12/06/17 14:30 12/06/17 15:00 12/06/17 15:23 Temperature Pulse Rate 93 H 90 95 H Respiratory Rate 16 16 16 Blood Pressure 129/78 107/66 Pulse Oximetry 100 100 100 12/06/17 15:30 12/06/17 16:00 12/06/17 16:30 Temperature 99.3 F Pulse Rate 94 H 93 H 101 H Respiratory Rate 16 16 16 Blood Pressure 110/81 116/74 133/74 Pulse Oximetry 100 100 100 12/06/17 17:00 12/06/17 17:30 12/06/17 18:00 Temperature Pulse Rate 93 H 95 H 96 H Respiratory Rate 16 16 16 Blood Pressure 118/74 115/67 124/82 Pulse Oximetry 100 97 100 12/06/17 18:30 12/06/17 19:00 12/06/17 19:30 Temperature Pulse Rate 95 H 100 H 101 H Respiratory Rate 16 16 16 Blood Pressure 116/75 126/81 122/89 Pulse Oximetry 100 97 83 L 12/06/17 20:00 12/06/17 20:30 12/06/17 20:51 Temperature Pulse Rate 100 H 100 H Respiratory Rate 16 16 16 Blood Pressure 120/79 122/80 Pulse Oximetry 100 100 100 12/06/17 20:53 12/06/17 21:00 12/06/17 21:30 Temperature Pulse Rate 97 H 98 H 100 H Respiratory Rate 16 16 16 Blood Pressure 127/79 131/82 Pulse Oximetry 100 100 12/06/17 22:00 12/06/17 22:30 12/06/17 23:00 Temperature Pulse Rate 97 H 105 H 108 H Respiratory Rate 16 16 27 H Blood Pressure 113/81 118/72 126/79 Pulse Oximetry 100 99 92 L 12/06/17 23:31 12/06/17 23:32 12/06/17 23:39 Temperature Pulse Rate 140 H 140 H 138 H Respiratory Rate 17 34 H 21 Blood Pressure 201/100 H 183/104 H 177/101 H Pulse Oximetry 92 L 98 98 12/07/17 00:00 12/07/17 00:30 12/07/17 00:40 Temperature 100 F H 101.2 F H Pulse Rate 110 H 107 H Respiratory Rate 32 H 35 H Blood Pressure 105/67 108/61 Pulse Oximetry 100 100 12/07/17 01:00 12/07/17 01:30 12/07/17 02:00 Temperature Pulse Rate 101 H 100 H 92 H Respiratory Rate 31 H 26 H 16 Blood Pressure 109/63 114/59 L 111/57 L Pulse Oximetry 100 100 100 12/07/17 02:08 12/07/17 02:30 12/07/17 03:00 Temperature Pulse Rate 91 H 89 Respiratory Rate 16 16 16 Blood Pressure 114/67 112/63 Pulse Oximetry 100 100 100 12/07/17 03:30 12/07/17 04:00 12/07/17 04:30 Temperature 98.9 F Pulse Rate 85 83 120 H Respiratory Rate 16 16 17 Blood Pressure 117/67 119/70 115/75 Pulse Oximetry 100 100 94 L 12/07/17 05:00 12/07/17 07:56 Temperature Pulse Rate 94 H 81 Respiratory Rate 16 16 Blood Pressure Pulse Oximetry 100 100 Intake & Output 12/06/17 12/07/17 12/07/17 18:59 06:59 18:59 Intake Total 50 / 50 2042 / 2042 Output Total 1500 / 1500 400 / 400 Balance -1450 / -1450 1642 / 1642 Weight 70 kg Intake: IV 50 / 50 702 / 702 Versed Inj 50 mg In 50 ml @ 2 50 / 50 132 / 132 MG/HR 2 mls/hr IV.CONT TITRATE PRN Rx#:[id number] Primacor Inj 20 MG In NS Inj 80 52 / 52 ML @ 0.5 MCG/KG/MIN 10.5 mls/ hr IV.CONT .Q9H32M [facility] Rx#: [id number] D10W Inj 1,000 ML @ 30 mls/hr 518 / 518 IV.SIG .Q24H [facility] Rx#:[id number] Tube Feeding 1220 / 1220 Water Bolus Amount 120 / 120 Output: Urine Amount (Catheter) 1500 / 1500 400 / 400 Condom 1500 / 1500 400 / 400 Other: Date of Last Bowel Movement 12/05/17 12/07/17 # Incontinent Bowel Movements 1 1 Result Diagrams: 12/07/17 04:07 12/07/17 04:07 Other Results: Microbiology 11/29/17 12:00 Blood - Peripheral Aerobic Blood Culture - Final No growth in 5 days 11/29/17 12:00 Blood - Peripheral Anaerobic Blood Culture - Final No growth in 5 days 11/29/17 11:55 Blood - Peripheral Aerobic Blood Culture - Final No growth in 5 days 11/29/17 11:55 Blood - Peripheral Anaerobic Blood Culture - Final No growth in 5 days 11/27/17 13:30 Catheterized Urine Urine Culture - Final Escherichia coli ESBL positive 11/27/17 13:20 Sputum - Endotracheal Gram Stain - Final 11/27/17 13:20 Sputum - Endotracheal Sputum Culture - Final Enterobacter cloacae Klebsiella pneumoniae 11/19/17 11:46 Blood - Peripheral Aerobic Blood Culture - Final No growth in 5 days 11/19/17 11:46 Blood - Peripheral Anaerobic Blood Culture - Final No growth in 5 days 11/19/17 08:20 Blood - Peripheral Aerobic Blood Culture - Final No growth in 5 days 11/19/17 08:20 Blood - Peripheral Anaerobic Blood Culture - Final No growth in 5 days 11/19/17 06:35 Catheterized Urine Urine Culture - Final Enterococcus faecalis Imaging: Abdomen/Pelvis CT 11/19/17 03:55 CONCLUSION: 1. Limited, suboptimal examination performed without intravenous or oral contrast. The study is degraded by motion artifact as well. 2. Abnormal bowel gas pattern with multiple small air-fluid levels. The bowel is suboptimally visualized and evaluated secondary to the lack of the intravenous and oral contrast as well as diffuse ascites. This may represent a gastroenteritis and/or ileus. Obstruction is less likely. 3. Diffuse ascites throughout the abdomen and pelvis. 4. Moderate size right effusion which is increased from the prior study. There is a new small left effusion. 5. Moderate cardiomegaly. 6. No definite gallstones identified. Chest X-Ray 11/19/17 03:55 CONCLUSION: 1. Mild hazy opacity is now noted in the right perihilar region concerning for mild pulmonary edema. 2. The heart size remains mildly enlarged and appearance. Head CT 11/19/17 03:55 CONCLUSION: 1. No acute hemorrhage or mass effect. 2. Mild motion and streak artifact. . Chest X-Ray 11/19/17 08:50 CONCLUSION: 1. ETT in good position. NGT beyond the GE junction. Central lines in good position. 2. Persistent atypical pulmonary edema pattern. Chest X-Ray 11/27/17 08:49 CONCLUSION: 1. Mild to moderate pulmonary vascular congestion. 2. Cardiomegaly. 3. Tiny bilateral pleural effusions. 4. Multiple tubes and lines are stable. Chest X-Ray 12/04/17 07:53 CONCLUSION: Significantly improved aeration. Endotracheal tube tip is a bit high Head MRI 12/05/17 00:00 CONCLUSION: 1. Edema with restricted diffusion in the medial right superior cerebellum. Imaging findings are characteristic of recent ischemia. 2. Chronic findings include generalized cerebral atrophy with moderate chronic periventricular and subcortical white matter signal change characteristic of chronic microvascular ischemia. The punctate area of signal change in the right centrum semiovale is suspected to represent white matter signal change but nonacute ischemia. Chest X-Ray 12/06/17 06:00 CONCLUSION: ET tube in high position at the thoracic inlet. NG tube in the distal esophagus. This should be advanced. Diffuse increased interstitial markings likely related to diffuse processes such as edema or diffuse infection. Objective Remarks: GENERAL: Patient is 57 yo AA male intubated and sedated SKIN: Warm and dry. HEAD: Normocephalic. EYES: No scleral icterus. No injection or drainage. NECK: Supple, trachea midline. No JVD or lymphadenopathy. CARDIOVASCULAR: Regular rate and rhythm without murmurs, gallops, or rubs. RESPIRATORY: Breath sounds equal bilaterally. No accessory muscle use. GASTROINTESTINAL: Abdomen soft, non-tender, nondistended. MUSCULOSKELETAL: Trace bilateral lower extremity edema. Neuro: Sedated. Inconsistent Assessment and Plan - Assessment and Plan Plan: Neurologic: Acute toxic encephalopathy Acute cocaine intoxication Acute metabolic encephalopathy secondary to shock Right superior cerebellar CVA On midazolam drip currently at 10 mg an hour for sedation while intubated Morphine sulfate 4 mg IV every 2 hours as needed pain Daily sedation vacation. Monitor neuro status. MRI brain 12/05 revealed restricted diffusion in the medial right superior cerebellum. Chronic periventricular and subcortical white matter signal change case of chronic microvascular ischemia. EEG 12/05 revealed moderate encephalopathy. No epileptic activity Respiratory: Acute hypoxic and hypercarbic respiratory failure Acute severe pulmonary edema Continue with vent support keep sats >92% On PRVC RR 16, TV550, IT:1.1, PEEP:5, FIO2: 30% Bronchodilators. SBT daily as maria elena. Patient is not tolerating CPAP trials- gets apneic, tachycardic and tachypneic. CXR today showed improved aeration of lung Palliative care spoke to family and now leaning toward trach/PEG. Spoke to patient's sister Kaylie and mother 12/06 updated her on patient's condition and she states decision on trach/PEG was withdrawal on Saturday Cardiovascular: s/p Cardiogenic shock Acute severe systolic congestive heart failure exacerbation Acute type II non-ST elevation myocardial infarction secondary to demand ischemia known prior EF 20% (09/2017), Echo 11/27: EF <20%, mod- severe MR, PAP 53.9mmHg likely secondary to chronic cocaine use superimposed on cardiomyopathy. Monitor HR and BP keep MAP>65mmHg. on carvedilol 3.125mg BID. add Lisinopril 5mg daily On 12.5 mg twice daily carvedilol at home. Holding amlodipine 10 mg daily/ home medication On Milrinone drip at 0.25 mcg/kg/min. attempt to discontinue today so we can discontinue central line. Lactic acid resolved 1.1 on 11/20 Renal: Acute kidney injury- resolved RACHID positive. Positive RACHID screen pending. Low complements noted. Monitor renal function, I/O's, electrolytes replacement per protocol. Vascath d/c 11/26. Continue furosemide 40mg IV daily Renal has followed FEN/GI: Hep C reactive Hypoalbuminemia Severe acute protein calorie malnutrition On tube feeds- Glucerna 1.5 with goal rate 55ml/hr Lansoprazole for GI prophylaxis. Docusate sodium/senna 1 tablet twice daily for bowel regimen Check hepatitis c viral load and genotype Heme/ID: VAP -Enterobacter/Klebsiella E. coli UTI HIV - CD4 60 new diagnosis Normocytic anemia Daily CBC , HIV reactive on screening test. CD4 count: 60 Meropenem switched to ertapenem by ID, Monitor for signs of infections ( Fever , WBC). Check UA urine cxs: ESBL E.coli 11/27 Sputum cx: Enterobacter, Kleb BC 11/29: NGTD ID is following Endocrine: SSI with accuchecks Prophylaxis: GI Prophylaxis Lansoprazole DVT Prophylaxis Subcu heparin Lines: 11/19 right subclavian 7 Ghanaian triple-lumen catheter 11/19 right IJ 14 Ghanaian 20 cm dialysis catheter d/c 11/26 Prognosis appears poor. Palliative care following to assist with deciding goals of therapy. Spoke to patient's sister Kaylie today updated her on patient's condition and she states that the family will make final decision on trach/PEG vs transition to comfort care on Saturday. Level 3
[2017-12-07] MEDS: Mag Sulf 1 gm/100 ml Premix 100 ML IV.SIG SCH ×2 (09:18→10:17)
[2017-12-07] MEDS: Lisinopril 5 MG Tablet PO SCH (09:18)
[2017-12-07] MEDS: Fluconazole 100 MG Tablet PO SCH (09:18)
[2017-12-07] MEDS: Hypromellose 0.3% Opth Gel 10 GM Bottle EACH EYE SCH ×2 (09:19→20:33)
[2017-12-07] MEDS: Senna/Docusate Sodium 8.6/50 MG Tablet PO SCH ×2 (09:34→20:34)
--- NOTE | 2017-12-07 11:04 | P.PNID ---
Subjective Remarks: ANABELL Steiner for . is a 57-year-old male, brought into the hospital after he was noted by his friend to have some altered mental status. He was noted to have a blood sugar of 50 in the ambulance and he received some dextrose with some improvement in his mentation. He was able to give some history to the ED MD, and admitted that he has been using cocaine, but he has denied any chest pain, shortness of breath. In the emergency room he was found to have an elevated creatinine of 2.4, potassium of 7, elevated LFTs and CPK, as well as B natriuretic peptide of 4307. He was acidotic. His mental status continued to deteriorate in the emergency room, and he developed progressive obtundation, and required emergent intubation. He also became hypotensive, and he had an echo done at bedside with severe biventricular dysfunction with an EF of less than 10%. He was placed on epinephrine for cardiogenic shock. Since that time patient has remained intubated. He had emergent hemodialysis, and his electrolytes improved, as well as his creatinine. He is off HD now. He has moderate clear secretions in his ET. He has not been tolerating CPAP trials. Palliative medicine is also following patient, and he has DNR status. Patient has history of cardiomyopathy with a prior EF of 20%, and had undergone mitral valve repair back in June 2017. During his mitral valve surgery he had a preserved LV function, but post operative, he apparently continued to use cocaine and had subsequent hospital admission with documentation of a decrease in his EF to about 20%. On this admission patient had HIV testing, and the results came back positive. Over the last 2448 hrs., his temperature had increased. He had cultures done, and his sputum culture is growing Enterobacter and Klebsiella, and his urine culture has E. coli ESBL positive. Patient currently is afebrile. His hemodynamics are stable. Monitor shows sinus rhythm, with frequent PACs. His chest x-ray has evidence of pulmonary vascular congestion. Infectious disease consultation has been requested to assist with management of his multiple infections. Overnight events reviewed with RN. Remains in the ICU. Intubated on ventilator 345% FIO2, PEEP 5. Not much secretions. UO ok. Has a condom cath. CD4 count 60. ESBL E.coli in the urine. Sputum with Enterobacter and Kleb. Not much verbal response. No spontaneous limb movts for me. Antibiotics: Ertapenem IV Lines: RSC TLC Past Medical History: COPD (chronic obstructive pulmonary disease) Diabetes Gout Non-ischemic cardiomyopathy CHF (congestive heart failure) Cocaine use Hypertension H/O mitral valve repair Hep C HIV Allergies/Adverse Reactions: Allergies No Known Allergies Allergy (Unverified 11/19/17 04:45) Objective Vital Signs 12/06/17 11:00 12/06/17 11:30 12/06/17 11:38 Temperature Pulse Rate 115 H 105 H Respiratory Rate 16 16 16 Blood Pressure 119/86 119/81 Pulse Oximetry 100 100 12/06/17 12:00 12/06/17 12:30 12/06/17 13:00 Temperature Pulse Rate 93 H 92 H 90 Respiratory Rate 16 16 16 Blood Pressure 110/59 L 108/62 135/77 Pulse Oximetry 100 100 100 12/06/17 13:30 12/06/17 14:00 12/06/17 14:30 Temperature Pulse Rate 92 H 93 H 93 H Respiratory Rate 16 16 16 Blood Pressure 129/81 130/68 129/78 Pulse Oximetry 100 100 100 12/06/17 15:00 12/06/17 15:23 12/06/17 15:30 Temperature Pulse Rate 90 95 H 94 H Respiratory Rate 16 16 16 Blood Pressure 107/66 110/81 Pulse Oximetry 100 100 100 12/06/17 16:00 12/06/17 16:30 12/06/17 17:00 Temperature 99.3 F Pulse Rate 93 H 101 H 93 H Respiratory Rate 16 16 16 Blood Pressure 116/74 133/74 118/74 Pulse Oximetry 100 100 100 12/06/17 17:30 12/06/17 18:00 12/06/17 18:30 Temperature Pulse Rate 95 H 96 H 95 H Respiratory Rate 16 16 16 Blood Pressure 115/67 124/82 116/75 Pulse Oximetry 97 100 100 12/06/17 19:00 12/06/17 19:30 12/06/17 20:00 Temperature Pulse Rate 100 H 101 H 100 H Respiratory Rate 16 16 16 Blood Pressure 126/81 122/89 120/79 Pulse Oximetry 97 83 L 100 12/06/17 20:30 12/06/17 20:51 12/06/17 20:53 Temperature Pulse Rate 100 H 97 H Respiratory Rate 16 16 16 Blood Pressure 122/80 Pulse Oximetry 100 100 08/17/18 21:00 12/06/17 21:30 12/06/17 22:00 Temperature Pulse Rate 98 H 100 H 97 H Respiratory Rate 16 16 16 Blood Pressure 127/79 131/82 113/81 Pulse Oximetry 100 100 100 12/06/17 22:30 12/06/17 23:00 12/06/17 23:31 Temperature Pulse Rate 105 H 108 H 140 H Respiratory Rate 16 27 H 17 Blood Pressure 118/72 126/79 201/100 H Pulse Oximetry 99 92 L 92 L 12/06/17 23:32 12/06/17 23:39 12/07/17 00:00 Temperature 100 F H Pulse Rate 140 H 138 H 110 H Respiratory Rate 34 H 21 32 H Blood Pressure 183/104 H 177/101 H 105/67 Pulse Oximetry 98 98 100 12/07/17 00:30 12/07/17 00:40 12/07/17 01:00 Temperature 101.2 F H Pulse Rate 107 H 101 H Respiratory Rate 35 H 31 H Blood Pressure 108/61 109/63 Pulse Oximetry 100 100 12/07/17 01:30 12/07/17 02:00 12/07/17 02:08 Temperature Pulse Rate 100 H 92 H Respiratory Rate 26 H 16 16 Blood Pressure 114/59 L 111/57 L Pulse Oximetry 100 100 100 12/07/17 02:30 12/07/17 03:00 12/07/17 03:30 Temperature Pulse Rate 91 H 89 85 Respiratory Rate 16 16 16 Blood Pressure 114/67 112/63 117/67 Pulse Oximetry 100 100 100 12/07/17 04:00 12/07/17 04:30 12/07/17 05:00 Temperature 98.9 F Pulse Rate 83 120 H 94 H Respiratory Rate 16 17 16 Blood Pressure 119/70 115/75 Pulse Oximetry 100 94 L 100 12/07/17 07:56 Temperature Pulse Rate 81 Respiratory Rate 16 Blood Pressure Pulse Oximetry 100 Intake & Output 12/06/17 12/07/17 12/07/17 18:59 06:59 18:59 Intake Total 50 / 50 2041 / 204 100 / 100 Output Total 1500 / 1500 400 / 400 Balance -1450 / -1450 1642 / 1642 100 / 100 Weight 70 kg Intake: IV 50 / 50 702 / 702 100 / 100 Versed Inj 50 mg In 50 ml @ 2 50 / 50 132 / 132 MG/HR 2 mls/hr IV.CONT TITRATE PRN Rx#:[id number] Primacor Inj 20 MG In NS Inj 80 52 / 52 ML @ 0.5 MCG/KG/MIN 10.5 mls/ hr IV.CONT .Q9H32M [facility] Rx#: [id number] D10W Inj 1,000 ML @ 30 mls/hr 518 / 518 IV.SIG .Q24H [facility] Rx#:[id number] Magnesium Sulfate 1 gm/D5W 100 100 / 100 ml Premix 100 ML @ 100 mls/hr IV.SIG Q1H [facility] Rx#:[id number] Tube Feeding 1220 / 1220 Water Bolus Amount 120 / 120 Output: Urine Amount (Catheter) 1500 / 1500 400 / 400 Condom 1500 / 1500 400 / 400 Other: Date of Last Bowel Movement 12/05/17 12/07/17 # Incontinent Bowel Movements 1 1 12/06/17 13:03 Blood - Peripheral Aerobic Blood Culture - Pending 12/06/17 13:03 Blood - Peripheral Anaerobic Blood Culture - Pending 12/06/17 13:09 Blood - Line Aerobic Blood Culture - Pending 12/06/17 13:09 Blood - Line Anaerobic Blood Culture - Pending 11/29/17 12:00 Blood - Peripheral Aerobic Blood Culture - Final No growth in 5 days 11/29/17 12:00 Blood - Peripheral Anaerobic Blood Culture - Final No growth in 5 days 11/29/17 11:55 Blood - Peripheral Aerobic Blood Culture - Final No growth in 5 days 11/29/17 11:55 Blood - Peripheral Anaerobic Blood Culture - Final No growth in 5 days Lab - Hematology Results 12/06/17 12/07/17 04:10 04:07 WBC 4.6 6.3 RBC 4.51 4.17 L Hgb 13.1 12.1 L Hct 40.5 37.7 L MCV 89.8 90.4 MCH 29.1 28.9 MCHC 32.4 32.0 RDW 14.5 14.8 Plt Count 222 222 MPV 9.4 9.2 Neut % (Auto) 71.6 H 83.9 H Lymph % (Auto) 13.1 7.3 L [place] % (Auto) 9.2 H 6.0 Eos % (Auto) 5.3 H 2.0 Baso % (Auto) 0.8 0.8 Neut # (Auto) 3.3 5.3 Lymph # (Auto) 0.6 L 0.5 L [place] # (Auto) 0.4 0.4 Eos # (Auto) 0.2 0.1 Baso # (Auto) 0.0 0.0 WBC Differential . . Differential Comment Auto diff final Auto diff final Lab - Chemistry Results 12/05/17 12/05/17 12/05/17 11:14 18:30 23:55 Sodium Potassium Chloride Carbon Dioxide Anion Gap BUN Creatinine Estimated GFR POC Glucose 112 H 103 77 Random Glucose Calcium Phosphorus Magnesium Total Bilirubin AST ALT Alkaline Phosphatase Ammonia Total Protein Albumin 12/06/17 12/06/17 12/06/17 04:10 04:10 05:52 Sodium 136 Potassium 4.0 Chloride 100 Carbon Dioxide 29.7 Anion Gap 6 BUN 27 H Creatinine 0.79 Estimated GFR Greater than 89 POC Glucose 109 Random Glucose 97 Calcium 8.2 L Phosphorus 2.3 L Magnesium 1.9 Total Bilirubin 0.5 AST 59 H ALT 37 Alkaline Phosphatase 75 Ammonia 38 H Total Protein 7.2 Albumin 1.7 L 12/06/17 12/06/17 12/06/17 14:08 18:32 23:19 Sodium Potassium Chloride Carbon Dioxide Anion Gap BUN Creatinine Estimated GFR POC Glucose 100 117 H 100 Random Glucose Calcium Phosphorus Magnesium Total Bilirubin AST ALT Alkaline Phosphatase Ammonia Total Protein Albumin 12/07/17 12/07/17 04:07 05:19 Sodium 138 Potassium 3.9 Chloride 101 Carbon Dioxide 32.0 Anion Gap 5 BUN 26 H Creatinine 0.77 Estimated GFR Greater than 89 POC Glucose 115 H Random Glucose 109 H Calcium 7.8 L Phosphorus 2.7 Magnesium 1.9 Total Bilirubin AST ALT Alkaline Phosphatase Ammonia Total Protein Albumin Imaging: ITS Impressions Abdomen/Pelvis CT 11/19/17 03:55 CONCLUSION: 1. Limited, suboptimal examination performed without intravenous or oral contrast. The study is degraded by motion artifact as well. 2. Abnormal bowel gas pattern with multiple small air-fluid levels. The bowel is suboptimally visualized and evaluated secondary to the lack of the intravenous and oral contrast as well as diffuse ascites. This may represent a gastroenteritis and/or ileus. Obstruction is less likely. 3. Diffuse ascites throughout the abdomen and pelvis. 4. Moderate size right effusion which is increased from the prior study. There is a new small left effusion. 5. Moderate cardiomegaly. 6. No definite gallstones identified. Head CT 11/19/17 03:55 CONCLUSION: 1. No acute hemorrhage or mass effect. 2. Mild motion and streak artifact. . Head MRI 12/05/17 00:00 CONCLUSION: 1. Edema with restricted diffusion in the medial right superior cerebellum. Imaging findings are characteristic of recent ischemia. 2. Chronic findings include generalized cerebral atrophy with moderate chronic periventricular and subcortical white matter signal change characteristic of chronic microvascular ischemia. The punctate area of signal change in the right centrum semiovale is suspected to represent white matter signal change but nonacute ischemia. Chest X-Ray 12/06/17 06:00 CONCLUSION: ET tube in high position at the thoracic inlet. NG tube in the distal esophagus. This should be advanced. Diffuse increased interstitial markings likely related to diffuse processes such as edema or diffuse infection. Physical Exam: GENERAL: Sedated, on the vent, looks ok SKIN: Cool and dry. No generalized rash, no ecchymoses and no evidence of embolic lesions. HEAD: Atraumatic. Normocephalic. No temporal wasting, or tenderness. EYES: [place] conjunctiva. No petechia or hemorrhage. Pupils equal, round and reactive to light. No scleral icterus. EARS, NOSE AND THROAT: Nose without bleeding or purulent nasal discharge. He is orally intubated. NECK: Trachea midline. Supple and not tender, no meningeal signs CARDIOVASCULAR: Irregular rate and rhythm. No murmurs, rubs or gallops heard. Sternotomy scar compatible with surgical history. RESPIRATORY: Coarse breath sounds bilaterally, decreased at the bases. ABDOMEN: Soft, non-tender, nondistended. Bowel sounds present and normoactive. No guarding. No rebound. No organomegaly. EXTREMITIES: No clubbing, cyanosis, or edema. No calf tenderness. Well perfused and warm. NEUROLOGICAL: Opens eyes when stimulated, not interacting. No Babinski, or ankle clonus. PSYCHIATRIC: Unable to assess LINE: No evidence of infection, has RSC TLC : Condom cath in place, urine looks ok. Assessment and Plan - Plan Impression Fevers since 11/28, has been on vent since 11/19 - temps higher again - has HCAP/VAP, C/S with Enterobacter and Klebsiella - UTI, UC with E coli ESBL+ Kleb and Enterobacter PNA E coli ESBL UTI Acute Respiratory failure, CHF, PNA Cardiomyopathy, EF <10% Prior MV repair Active cocaine use per resports Newly Dx HIV, CD4 count 60. S/P renal failure, had 2 HD, renal function improved Recommendation Continue Ertapenem IV. Continue Diflucan IV. Start Bactrim for PCP prophylaxis. Removal of CL if not needed and alternate access can be obtained by vascular team. If change in clinical condition consider iglesias cultures and escalating antibiotics to Meropenem IV and Vanco IV plus/- Micafungin at risk for Fungemia as has a line. If goals remain aggressive may need further workup. RN informs me patient family considering withdrawing on Saturday next week. Monitor temps Monitor progress Weaning as tolerated per CCM dw RHYS Snider to resume care on Saturday12/09/17. If any changes in the interim please call sooner.
[2017-12-07] MEDS ORDERED: Vancomycin Consult Pharmacy OTHER SCH (16:50)
[2017-12-07] MEDS ORDERED: Vancomycin Inj 1,750 MG in Sodium Chlor 0.9% Inj 500 ML IV.SIG ONE (18:00)
[2017-12-07] MEDS: Dextrose 10% in Water Inj 1,000 ML IV.SIG SCH (20:33)
[2017-12-08] MEDS: Insulin NovoLIN Regular Correctional Sugar Inj SQ SCH ×4 (03:34→17:53)
[2017-12-08] MEDS: Midazolam 50 MG/50 ML Inj 50 MG/50 ML BAG IV.CONT PRN ×2 (05:00→21:28)
[2017-12-08] MEDS: Dextrose 10% in Water Inj 1,000 ML IV.SIG SCH (05:02)
[2017-12-08] MEDS: Heparin - SQ 10,000 UNITS/ML Vial SQ SCH ×3 (05:04→21:27)
[2017-12-08] MEDS: Vancomycin Inj 1,250 MG in Sodium Chlor 0.9% Inj 250 ML IV.SIG SCH ×2 (05:05→17:19)
--- NOTE | 2017-12-08 05:47 | XR ---
EXAM DATE: 12/08/2017 5:36 AM EDT AGE/SEX: 57 years / Male INDICATIONS: Shortness of breath, possible pulmonary disease. CLINICAL DATA: This is the patient's subsequent encounter. Patient reports that signs and symptoms h ave been present for 4 - 6 days and indicates a pain score of Nonresponsive. MEDICAL/SURGICAL HISTORY: Congestive heart failure. None. COMPARISON: [facility], CHEST 1V SINGLE AP, 12/06/2017. . FINDINGS: The ET tube and NG tube are well placed. The heart size is upper limits of normal. The lungs show per sistent diffuse increased interstitial markings. There is more focal increased density seen at the rigoberto ng bases bilaterally with silhouetting of portions of the hemidiaphragms. CONCLUSION: Diffuse increased interstitial markings likely related to diffuse processes such as diffuse edema, in fection, or ARDS. Further increased density at the bases related to consolidation, atelectasis and/or effusion. Electronically signed by: Mango Chapman MD 12/08/2017 5:46 AM EDT
[2017-12-08] MEDS: Milrinone Inj 20 MG in Sodium Chlor 0.9% Inj 80 ML IV.CONT SCH (05:51)
[2017-12-08 06:10] LABS: Baso % (Auto) 0.5 % (0.0-2.0); Eos # (Auto) 0.2 th/mm3 (0.0-0.4); Eos % (Auto) 5.8 % (0.0-4.0); Hematocrit 38.5 % (39.0-51.0); Hemoglobin 12.6 gm/dL (13.0-17.0); Lymph # (Auto) 0.5 th/mm3 (1.0-4.8); Lymph % (Auto) 12.7 % (9.0-44.0); Mean Corpuscular HGB Conc 32.7 % (32.0-36.0); Mean Corpuscular Hemoglobin 29.7 pg (27.0-34.0); Mean Corpuscular Volume 90.6 fL (80.0-100.0); Mean Platelet Volume 9.8 fL (7.0-11.0); Mono # (Auto) 0.3 th/mm3 (0.0-0.9); Mono % (Auto) 7.3 % (0.0-8.0); Neut # (Auto) 3.2 th/mm3 (1.8-7.7); Neut % (Auto) 73.7 % (16.0-70.0); Platelet Count 222 th/mm3 (150-450); Red Blood Count 4.25 mil/mm3 (4.50-5.90); Red Cell Distribution Width 14.8 % (11.6-17.2); White Blood Count 4.3 th/mm3 (4.0-11.0)
[2017-12-08 06:22] LABS: Albumin 1.8 g/dL (3.4-5.0); Anion Gap 8 meq/L (5-15); Aspartate Aminotransferase 56 U/L (15-37); Blood Urea Nitrogen 24 mg/dL (7-18); Calcium 8.1 mg/dL (8.5-10.1); Carbon Dioxide 28.4 meq/L (21.0-32.0); Chloride 100 meq/L (98-107); Glomerular Filtration Rate Greater Than 89 mL/min (>89); Glucose,Random 99 mg/dL (74-106); Magnesium 2.2 mg/dL (1.5-2.5); Potassium 4.5 meq/L (3.5-5.1); Sodium 136 meq/L (136-145)
[2017-12-08 06:23] LABS: Alanine Aminotransferase 38 U/L (12-78); Phosphorus 2.4 mg/dL (2.5-4.9)
[2017-12-08 06:29] LABS: Alkaline Phosphatase 76 U/L (45-117); Total Protein 7.5 g/dL (6.4-8.2)
[2017-12-08] MEDS: Hypromellose 0.3% Opth Gel 10 GM Bottle EACH EYE SCH ×2 (09:29→21:27)
[2017-12-08] MEDS: Lisinopril 5 MG Tablet PO SCH (09:29)
[2017-12-08] MEDS: Senna/Docusate Sodium 8.6/50 MG Tablet PO SCH ×2 (09:29→21:27)
[2017-12-08] MEDS: Fluconazole 100 MG Tablet PO SCH (09:29)
[2017-12-08 11:52] LABS: Hepatitis C RNA (PCR) log IUs 5.55
--- NOTE | 2017-12-08 12:07 | P.PNCC ---
Subjective Subjective Remarks/Hospital Course: 11/19: This is a 57yM with history of cardiomyopathy and an EF 20% who recently underwent mitral valve repair for severe MR. At that time, he had a preserved LVEF. However, he continued to use illicit cocaine, and on subsequent hospital admissions, his EF had fallen to 20%. He represents today with altered mental status, endorsing cocaine use. On further evaluation, he has a potassium of 7, Cr 2.4, AST/ALT 200/72, CK 1302, BNP 4307, co2 14. On my evaluation he is obtunded and agonally breathing, intermittently tachypneic. I performed bedside critical care echo which demonstrated a severe biventricular dysfunction and an EF < 10%. there was spontaneous echo contrast in the LV and the aortic valve appeared to open only minimally due to low-flow. Patient is grossly anasarcic with 3+ edema bilaterally up to the abdomen. he has JVD above the level of the mandible. I emergently intubated the patient (see separate procedure note for details). I emergently placed arterial, central lines, and dialysis catheter. potassium did not improve with medical therapy. we consulted nephrology for emergent HD. I also placed the patient on epinephrine drip for cardiogenic shock. due to the patient's mental status and clinical status, no additional information is available from him. ROS unobtainable. 11/20: Remains sedated, orally intubated on mechanical ventilation. Dialyzed this morning. Remains on pressors. 11/21: Remains sedated, orally intubated on mechanical ventilation. Hypothermic this morning. 11/22: Remains sedated, orally intubated on mechanical ventilation. Dialysis scheduled today 11/23: Remains sedated, orally intubated on mechanical ventilation. On milrinone. 11/24, 11/25: Remains sedated, orally intubated on mechanical ventilation. Tolerating tube feeds. 11/26: Sedated, orally intubated on mechanical ventilation. Tolerating tube feeds. 11/27 No events overnight. Sedated with Versed and intubated. On Milrinone drip. 11/29 Patient is sedated with Versed and intubated. Remains on Milrinone. T: 100.4 last night. Had 1 run (6 beats) asymptomatic Vtach overnight. Gets tachycardic and tachypneic with CPAP trials. 11/30 Patient remains sedated and intubated. T:100.4 last night. Not tolerating CPAP trials. 12/01 No events overnight. T:100.0 last night. Sedated with versed and on Milrinone. 12/02 Patient remains intubated and sedated. T;100.0 last night. On Versed and Diprivan infusion for sedation. Not tolerating CPAP trials. 12/03 No events overnight. Sedated and intubated. On Milrinone. Afebrile. 12/04 Patient remains sedated and intubated. Afebrile. 12/05: Afebrile. Start back on midazolam drip due to tachycardia/agitation. Heart rate currently in the 150s. Did not tolerate CPAP trial. Remains on milrinone at 0.25 mcg/kg/min 12/06: Resting comfortably in bed. Remains on midazolam drip at 6 mg an hour. MRI brain yesterday revealed right-sided superior cerebellar CVA with some edema. Awaiting family decision for tracheostomy and PEG tube placement 12/07: T-max 101.2. Currently on midazolam drip at 10 mg an hour due to "agitation and tachypnea" overnight. 2 runs of nonsustained V. tach. Magnesium potassium being replaced. Subjective 12/08: T-max 100.5. Currently on midazolam drip at 7 mg an hour. Phosphorus currently being replaced. Plan for discussion about trach/PEG versus withdrawal of care tomorrow with mother and daughter. Objective Vital Signs / I&O: Vital Signs 12/07/17 12:30 12/07/17 13:00 12/07/17 13:30 Temperature Pulse Rate 85 87 92 H Respiratory Rate 31 H 32 H 16 Blood Pressure 111/70 114/77 119/81 Pulse Oximetry 100 100 100 12/07/17 14:00 12/07/17 14:30 12/07/17 15:00 Temperature Pulse Rate 80 92 H 100 H Respiratory Rate 16 16 16 Blood Pressure 104/64 128/83 125/93 H Pulse Oximetry 100 100 12/07/17 15:16 12/07/17 15:30 12/07/17 16:00 Temperature 98.4 F Pulse Rate 91 H 91 H 94 H Respiratory Rate 16 26 H 24 Blood Pressure 119/79 117/84 Pulse Oximetry 98 97 12/07/17 16:30 08/18/18 17:00 12/07/17 17:30 Temperature Pulse Rate 91 H 86 91 H Respiratory Rate 17 16 17 Blood Pressure 116/79 111/73 136/91 H Pulse Oximetry 84 L 12/07/17 18:00 12/07/17 18:30 12/07/17 19:00 Temperature Pulse Rate 110 H 89 91 H Respiratory Rate 16 16 16 Blood Pressure 129/87 114/76 117/80 Pulse Oximetry 100 100 100 12/07/17 19:30 12/07/17 20:00 12/07/17 20:30 Temperature 99.2 F Pulse Rate 93 H 87 93 H Respiratory Rate 16 16 16 Blood Pressure 116/77 114/73 116/76 Pulse Oximetry 100 100 99 12/07/17 20:52 12/07/17 20:55 12/07/17 21:00 Temperature Pulse Rate 93 H 90 Respiratory Rate 16 16 16 Blood Pressure 114/74 Pulse Oximetry 100 100 12/07/17 21:30 12/07/17 22:00 12/07/17 22:30 Temperature Pulse Rate 101 H 93 H 92 H Respiratory Rate 20 32 H 16 Blood Pressure 141/94 H 117/77 117/78 Pulse Oximetry 100 100 100 12/07/17 23:00 12/07/17 23:20 12/07/17 23:30 Temperature Pulse Rate 97 H 98 H Respiratory Rate 30 H 16 33 H Blood Pressure 117/78 114/80 Pulse Oximetry 100 100 100 12/08/17 00:00 12/08/17 00:30 12/08/17 01:00 Temperature 100.1 F H Pulse Rate 100 H 97 H 92 H Respiratory Rate 35 H 26 H 16 Blood Pressure 119/82 117/74 110/71 Pulse Oximetry 100 100 100 12/08/17 01:30 12/08/17 02:00 12/08/17 02:02 Temperature Pulse Rate 95 H 101 H 103 H Respiratory Rate 16 16 16 Blood Pressure 113/76 119/79 Pulse Oximetry 100 89 L 92 L 12/08/17 02:30 12/08/17 03:00 12/08/17 03:30 Temperature Pulse Rate 97 H 101 H 109 H Respiratory Rate 16 16 16 Blood Pressure 112/75 110/80 116/80 Pulse Oximetry 96 98 100 12/08/17 03:58 12/08/17 04:00 12/08/17 04:30 Temperature 99.9 F H Pulse Rate 109 H 107 H 116 H Respiratory Rate 17 17 19 Blood Pressure 98/71 L 125/92 H Pulse Oximetry 100 97 92 L 12/08/17 05:00 12/08/17 05:30 12/08/17 08:00 Temperature 99.5 F Pulse Rate 104 H 105 H 103 H Respiratory Rate 41 H 29 H 16 Blood Pressure 109/77 116/79 114/80 Pulse Oximetry 100 100 97 12/08/17 09:05 Temperature Pulse Rate 100 H Respiratory Rate 16 Blood Pressure Pulse Oximetry 100 Intake & Output 12/07/17 12/08/17 12/08/17 18:59 06:59 18:59 Intake Total 907 / 907 1267 / 1267 Output Total 1500 / 1500 550 / 550 Balance -593 / -593 717 / 717 Weight 68 kg Intake: IV 118 / 118 600 / 600 Versed Inj 50 mg In 50 ml @ 2 18 100 / 100 MG/HR 2 mls/hr IV.CONT TITRATE PRN Rx#:[id number] Inj 1,000 ML @ 30 mls/hr 500 / 500 IV.SIG .Q24H RUDDY Rx#:[id number] Magnesium Sulfate 1 gm/D5W 100 100 / 100 ml Premix 100 ML @ 100 mls/hr IV.SIG Q1H RUDDY Rx#:[id number] Oral 0 / 0 Tube Feeding 669 / 669 547 / 547 Water Bolus Amount 120 / 120 120 / 120 Output: Urine 1500 / 1500 Urine Amount (Catheter) 550 / 550 Condom 550 / 550 Other: Date of Last Bowel Movement 12/07/17 12/08/17 12/07/17 # Bowel Movements 1 # Incontinent Bowel Movements 1 Result Diagrams: 12/08/17 04:11 12/08/17 04:11 Other Results: Microbiology 12/07/17 19:35 Blood - Peripheral Aerobic Blood Culture - Preliminary No growth in 1 day 12/07/17 19:35 Blood - Peripheral Anaerobic Blood Culture - Preliminary No growth in 1 day 12/07/17 19:30 Blood - Peripheral Aerobic Blood Culture - Preliminary No growth in 1 day 12/07/17 19:30 Blood - Peripheral Anaerobic Blood Culture - Preliminary No growth in 1 day 12/06/17 13:03 Blood - Peripheral Aerobic Blood Culture - Preliminary No growth in 2 days 12/06/17 13:03 Blood - Peripheral Anaerobic Blood Culture - Preliminary Staphylococcus coag negative 12/06/17 13:09 Blood - Line Aerobic Blood Culture - Preliminary Staphylococcus coag negative 12/06/17 13:09 Blood - Line Anaerobic Blood Culture - Preliminary No growth in 2 days 11/29/17 12:00 Blood - Peripheral Aerobic Blood Culture - Final No growth in 5 days 11/29/17 12:00 Blood - Peripheral Anaerobic Blood Culture - Final No growth in 5 days 11/29/17 11:55 Blood - Peripheral Aerobic Blood Culture - Final No growth in 5 days 11/29/17 11:55 Blood - Peripheral Anaerobic Blood Culture - Final No growth in 5 days 11/27/17 13:30 Catheterized Urine Urine Culture - Final Escherichia coli ESBL positive 11/27/17 13:20 Sputum - Endotracheal Gram Stain - Final 11/27/17 13:20 Sputum - Endotracheal Sputum Culture - Final Enterobacter cloacae Klebsiella pneumoniae 11/19/17 11:46 Blood - Peripheral Aerobic Blood Culture - Final No growth in 5 days 11/19/17 11:46 Blood - Peripheral Anaerobic Blood Culture - Final No growth in 5 days 11/19/17 08:20 Blood - Peripheral Aerobic Blood Culture - Final No growth in 5 days 11/19/17 08:20 Blood - Peripheral Anaerobic Blood Culture - Final No growth in 5 days 11/19/17 06:35 Catheterized Urine Urine Culture - Final Enterococcus faecalis Imaging: ITS Impressions Abdomen/Pelvis CT 11/19/17 03:55 CONCLUSION: 1. Limited, suboptimal examination performed without intravenous or oral contrast. The study is degraded by motion artifact as well. 2. Abnormal bowel gas pattern with multiple small air-fluid levels. The bowel is suboptimally visualized and evaluated secondary to the lack of the intravenous and oral contrast as well as diffuse ascites. This may represent a gastroenteritis and/or ileus. Obstruction is less likely. 3. Diffuse ascites throughout the abdomen and pelvis. 4. Moderate size right effusion which is increased from the prior study. There is a new small left effusion. 5. Moderate cardiomegaly. 6. No definite gallstones identified. Head CT 11/19/17 03:55 CONCLUSION: 1. No acute hemorrhage or mass effect. 2. Mild motion and streak artifact. . Head MRI 12/05/17 00:00 CONCLUSION: 1. Edema with restricted diffusion in the medial right superior cerebellum. Imaging findings are characteristic of recent ischemia. 2. Chronic findings include generalized cerebral atrophy with moderate chronic periventricular and subcortical white matter signal change characteristic of chronic microvascular ischemia. The punctate area of signal change in the right centrum semiovale is suspected to represent white matter signal change but nonacute ischemia. Chest X-Ray 12/08/17 06:00 CONCLUSION: Diffuse increased interstitial markings likely related to diffuse processes such as diffuse edema, infection, or ARDS. Further increased density at the bases related to consolidation, atelectasis and /or effusion. Objective Remarks: GENERAL: Patient is 57 yo AA male intubated and sedated SKIN: Warm and dry. HEAD: Normocephalic. EYES: No scleral icterus. No injection or drainage. NECK: Supple, trachea midline. No JVD or lymphadenopathy. CARDIOVASCULAR: Regular rate and rhythm without murmurs, gallops, or rubs. RESPIRATORY: Breath sounds equal bilaterally. No accessory muscle use. GASTROINTESTINAL: Abdomen soft, non-tender, nondistended. MUSCULOSKELETAL: Trace bilateral lower extremity edema. Neuro: Sedated. Inconsistent Assessment and Plan - Assessment and Plan Plan: Neurologic: Acute toxic encephalopathy Acute cocaine intoxication Acute metabolic encephalopathy secondary to shock Right superior cerebellar CVA On midazolam drip currently at 7 mg an hour for sedation while intubated Morphine sulfate 4 mg IV every 2 hours as needed pain Daily sedation vacation. Monitor neuro status. MRI brain 12/05 revealed restricted diffusion in the medial right superior cerebellum. Chronic periventricular and subcortical white matter signal change case of chronic microvascular ischemia. EEG 12/05 revealed moderate encephalopathy. No epileptic activity Respiratory: Acute hypoxic and hypercarbic respiratory failure Acute severe pulmonary edema Continue with vent support keep sats >92% On PRVC RR 16, TV550, IT:1.1, PEEP:5, FIO2: 30% Bronchodilators with albuterol/ipratropium aerosols every 6 hours with albuterol aerosols every 2 hours as needed for dyspnea. SBT daily as maria elena. Patient is not tolerating CPAP trials- gets apneic, tachycardic and tachypneic. CXR 12/09 ordered Palliative care spoke to family and now leaning toward trach/PEG. Spoke to patient's sister Kaylie and mother 12/06 updated her on patient's condition and she states decision on trach/PEG was withdrawal on Saturday Cardiovascular: s/p Cardiogenic shock Acute severe systolic congestive heart failure exacerbation Acute type II non-ST elevation myocardial infarction secondary to demand ischemia known prior EF 20% (09/2017), Echo 11/27: EF <20%, mod- severe MR, PAP 53.9mmHg likely secondary to chronic cocaine use superimposed on cardiomyopathy. Monitor HR and BP keep MAP>65mmHg. on carvedilol 3.125mg BID. And lisinopril 5mg daily On 12.5 mg twice daily carvedilol at home. Holding amlodipine 10 mg daily/ home medication Discontinued 12/07 milrinone drip at 0.25 mcg/kg/min. Lactic acid resolved 1.1 on 11/20 Renal: Acute kidney injury- resolved RACHID positive. Positive RACHID screen pending. Low complements noted. Monitor renal function, I/O's, electrolytes replacement per protocol. Vascath d/c 11/26. Continue furosemide 40mg IV daily Renal has followed FEN/GI: Hep C reactive viral load 351, 000 international units per milliliter Hypoalbuminemia Possible autoimmune hepatitis Severe acute protein calorie malnutrition On tube feeds- Glucerna 1.5 with goal rate 55ml/hr Lansoprazole for GI prophylaxis. Docusate sodium/senna 1 tablet twice daily for bowel regimen Check hepatitis c genotype Heme/ID: VAP -Enterobacter/Klebsiella E. coli UTI HIV - CD4 60 new diagnosis Normocytic anemia Daily CBC , HIV reactive on screening test. CD4 count: 60 Meropenem switched to ertapenem by ID, added vancomycin 12/07 monitor for signs of infections ( Fever, WBC). Check UA urine cxs: ESBL E.coli 11/27 Sputum cx: Enterobacter, Kleb BC 11/29: NGTD 12/06 - BC -gram-positive cocci from line and peripherally. Negative blood cultures 12/07 ID is following Endocrine: SSI with accuchecks Prophylaxis: GI Prophylaxis Lansoprazole DVT Prophylaxis Subcu heparin Lines: 11/19 right subclavian 7 Somali triple-lumen catheter discontinued 12/07 11/19 right IJ 14 Somali 20 cm dialysis catheter d/c 11/26 Prognosis appears poor. Palliative care following to assist with deciding goals of therapy. Spoke to patient's sister Kaylie today updated her on patient's condition and she states that the family will make final decision on trach/PEG vs transition to comfort care on the 12/09 Level 3
[2017-12-08] MEDS ORDERED: Sodium Phosphate Inj 30 MMOL in Sodium Chlor 0.9% Inj 250 ML IV.SIG ONE (12:30)
--- NOTE | 2017-12-08 13:48 | P.PNID ---
Subjective Remarks: ANABELL Steiner for . is a 57-year-old male, brought into the hospital after he was noted by his friend to have some altered mental status. He was noted to have a blood sugar of 50 in the ambulance and he received some dextrose with some improvement in his mentation. He was able to give some history to the ED MD, and admitted that he has been using cocaine, but he has denied any chest pain, shortness of breath. In the emergency room he was found to have an elevated creatinine of 2.4, potassium of 7, elevated LFTs and CPK, as well as B natriuretic peptide of 4307. He was acidotic. His mental status continued to deteriorate in the emergency room, and he developed progressive obtundation, and required emergent intubation. He also became hypotensive, and he had an echo done at bedside with severe biventricular dysfunction with an EF of less than 10%. He was placed on epinephrine for cardiogenic shock. Since that time patient has remained intubated. He had emergent hemodialysis, and his electrolytes improved, as well as his creatinine. He is off HD now. He has moderate clear secretions in his ET. He has not been tolerating CPAP trials. Palliative medicine is also following patient, and he has DNR status. Patient has history of cardiomyopathy with a prior EF of 20%, and had undergone mitral valve repair back in June 2017. During his mitral valve surgery he had a preserved LV function, but post operative, he apparently continued to use cocaine and had subsequent hospital admission with documentation of a decrease in his EF to about 20%. On this admission patient had HIV testing, and the results came back positive. Over the last 2448 hrs., his temperature had increased. He had cultures done, and his sputum culture is growing Enterobacter and Klebsiella, and his urine culture has E. coli ESBL positive. Patient currently is afebrile. His hemodynamics are stable. Monitor shows sinus rhythm, with frequent PACs. His chest x-ray has evidence of pulmonary vascular congestion. Infectious disease consultation has been requested to assist with management of his multiple infections. Overnight events reviewed with RN. Remains in the ICU. Intubated on ventilator 345% FIO2, PEEP 5. Not much secretions. UO ok. Has a condom cath. CD4 count 60. ESBL E.coli in the urine. Sputum with Enterobacter and Kleb. Not much verbal response. No spontaneous limb movts for me. CL removed. BCX positive for GPC, started on vanco IV Antibiotics: Ertapenem IV Vanco IV Lines: RSC TLC Past Medical History: COPD (chronic obstructive pulmonary disease) Diabetes Gout Non-ischemic cardiomyopathy CHF (congestive heart failure) Cocaine use Hypertension H/O mitral valve repair Hep C HIV Allergies/Adverse Reactions: Allergies No Known Allergies Allergy (Unverified 11/19/17 04:45) Objective Vital Signs 12/07/17 14:00 12/07/17 14:30 12/07/17 15:00 Temperature Pulse Rate 80 92 H 100 H Respiratory Rate 16 16 16 Blood Pressure 104/64 128/83 125/93 H Pulse Oximetry 100 100 12/07/17 15:16 12/07/17 15:30 12/07/17 16:00 Temperature 98.4 F Pulse Rate 91 H 91 H 94 H Respiratory Rate 16 26 H 24 Blood Pressure 119/79 117/84 Pulse Oximetry 98 97 12/07/17 16:30 12/07/17 17:00 12/07/17 17:30 Temperature Pulse Rate 91 H 86 91 H Respiratory Rate 17 16 17 Blood Pressure 116/79 111/73 136/91 H Pulse Oximetry 84 L 12/07/17 18:00 12/07/17 18:30 12/07/17 19:00 Temperature Pulse Rate 110 H 89 91 H Respiratory Rate 16 16 16 Blood Pressure 129/87 114/76 117/80 Pulse Oximetry 100 100 100 12/07/17 19:30 12/07/17 20:00 12/07/17 20:30 Temperature 99.2 F Pulse Rate 93 H 87 93 H Respiratory Rate 16 16 16 Blood Pressure 116/77 114/73 116/76 Pulse Oximetry 100 100 99 12/07/17 20:52 12/07/17 20:55 12/07/17 21:00 Temperature Pulse Rate 93 H 90 Respiratory Rate 16 16 16 Blood Pressure 114/74 Pulse Oximetry 100 100 12/07/17 21:30 12/07/17 22:00 12/07/17 22:30 Temperature Pulse Rate 101 H 93 H 92 H Respiratory Rate 20 32 H 16 Blood Pressure 141/94 H 117/77 117/78 Pulse Oximetry 100 100 100 12/07/17 23:00 12/07/17 23:20 12/07/17 23:30 Temperature Pulse Rate 97 H 98 H Respiratory Rate 30 H 16 33 H Blood Pressure 117/78 114/80 Pulse Oximetry 100 100 100 12/08/17 00:00 12/08/17 00:30 12/08/17 01:00 Temperature 100.1 F H Pulse Rate 100 H 97 H 92 H Respiratory Rate 35 H 26 H 16 Blood Pressure 119/82 117/74 110/71 Pulse Oximetry 100 100 100 12/08/17 01:30 12/08/17 02:00 12/08/17 02:02 Temperature Pulse Rate 95 H 101 H 103 H Respiratory Rate 16 16 16 Blood Pressure 113/76 119/79 Pulse Oximetry 100 89 L 92 L 12/08/17 02:30 12/08/17 03:00 12/08/17 03:30 Temperature Pulse Rate 97 H 101 H 109 H Respiratory Rate 16 16 16 Blood Pressure 112/75 110/80 116/80 Pulse Oximetry 96 98 100 12/08/17 03:58 12/08/17 04:00 12/08/17 04:30 Temperature 99.9 F H Pulse Rate 109 H 107 H 116 H Respiratory Rate 17 17 19 Blood Pressure 98/71 L 125/92 H Pulse Oximetry 100 97 92 L 12/08/17 05:00 12/08/17 05:30 12/08/17 08:00 Temperature 99.5 F Pulse Rate 104 H 105 H 103 H Respiratory Rate 41 H 29 H 16 Blood Pressure 109/77 116/79 114/80 Pulse Oximetry 100 100 97 12/08/17 09:05 Temperature Pulse Rate 100 H Respiratory Rate 16 Blood Pressure Pulse Oximetry 100 Intake & Output 12/07/17 12/08/17 12/08/17 18:59 06:59 18:59 Intake Total 907 / 907 1267 / 1267 Output Total 1500 / 1500 550 / 550 Balance -593 / -593 717 / 717 Weight 68 kg Intake: IV 118 / 118 600 / 600 Versed Inj 50 mg In 50 ml @ 2 18 100 / 100 MG/HR 2 mls/hr IV.CONT TITRATE PRN Rx#:[id number] Inj 1,000 ML @ 30 mls/hr 500 / 500 IV.SIG .Q24H [facility]UD[facility] Rx#:[id number] Magnesium Sulfate 1 gm/D5W 100 100 / 100 ml Premix 100 ML @ 100 mls/hr IV.SIG Q1H [facility] Rx#:[id number] Oral 0 / 0 Tube Feeding 669 / 669 547 / 547 Water Bolus Amount 120 / 120 120 / 120 Output: Urine 1500 / 1500 Urine Amount (Catheter) 550 / 550 Condom 550 / 550 Other: Date of Last Bowel Movement 12/07/17 12/08/17 12/07/17 # Bowel Movements 1 # Incontinent Bowel Movements 1 12/08/17 12:20 Blood - Peripheral Aerobic Blood Culture - Pending 12/08/17 12:20 Blood - Peripheral Anaerobic Blood Culture - Pending 12/08/17 12:10 Blood - Peripheral Aerobic Blood Culture - Pending 12/08/17 12:10 Blood - Peripheral Anaerobic Blood Culture - Pending 12/07/17 19:35 Blood - Peripheral Aerobic Blood Culture - Preliminary No growth in 1 day 12/07/17 19:35 Blood - Peripheral Anaerobic Blood Culture - Preliminary No growth in 1 day 12/07/17 19:30 Blood - Peripheral Aerobic Blood Culture - Preliminary No growth in 1 day 12/07/17 19:30 Blood - Peripheral Anaerobic Blood Culture - Preliminary No growth in 1 day 12/06/17 13:03 Blood - Peripheral Aerobic Blood Culture - Preliminary No growth in 2 days 12/06/17 13:03 Blood - Peripheral Anaerobic Blood Culture - Preliminary Staphylococcus coag negative 12/06/17 13:09 Blood - Line Aerobic Blood Culture - Preliminary Staphylococcus coag negative 12/06/17 13:09 Blood - Line Anaerobic Blood Culture - Preliminary No growth in 2 days Lab - Hematology Results 12/07/17 12/08/17 04:07 04:11 WBC 6.3 4.3 RBC 4.17 L 4.25 L Hgb 12.1 L 12.6 L Hct 37.7 L 38.5 L MCV 90.4 90.6 MCH 28.9 29.7 MCHC 32.0 32.7 RDW 14.8 14.8 Plt Count 222 222 MPV 9.2 9.8 Neut % (Auto) 83.9 H 73.7 H Lymph % (Auto) 7.3 L 12.7 [place] % (Auto) 6.0 7.3 Eos % (Auto) 2.0 5.8 H Baso % (Auto) 0.8 0.5 Neut # (Auto) 5.3 3.2 Lymph # (Auto) 0.5 L 0.5 L [place] # (Auto) 0.4 0.3 Eos # (Auto) 0.1 0.2 Baso # (Auto) 0.0 0.0 WBC Differential . . Differential Comment Auto diff final Auto diff final Lab - Chemistry Results 12/06/17 12/06/17 12/06/17 14:08 18:32 23:19 Sodium Potassium Chloride Carbon Dioxide Anion Gap BUN Creatinine Estimated GFR POC Glucose 100 117 H 100 Random Glucose Calcium Phosphorus Magnesium Total Bilirubin AST ALT Alkaline Phosphatase Total Protein Albumin 12/07/17 12/07/17 12/07/17 04:07 05:19 12:20 Sodium 138 Potassium 3.9 Chloride 101 Carbon Dioxide 32.0 Anion Gap 5 BUN 26 H Creatinine 0.77 Estimated GFR Greater than 89 POC Glucose 115 H 106 Random Glucose 109 H Calcium 7.8 L Phosphorus 2.7 Magnesium 1.9 Total Bilirubin AST ALT Alkaline Phosphatase Total Protein Albumin 12/07/17 12/08/17 12/08/17 17:29 00:20 04:11 Sodium 136 Potassium 4.5 Chloride 100 Carbon Dioxide 28.4 Anion Gap 8 BUN 24 H Creatinine 0.68 Estimated GFR Greater than 89 POC Glucose 120 H 116 H Random Glucose 99 Calcium 8.1 L Phosphorus 2.4 L Magnesium 2.2 Total Bilirubin 0.5 AST 56 H ALT 38 Alkaline Phosphatase 76 Total Protein 7.5 Albumin 1.8 L 12/08/17 12/08/17 05:07 10:56 Sodium Potassium Chloride Carbon Dioxide Anion Gap BUN Creatinine Estimated GFR POC Glucose 122 H 118 H Random Glucose Calcium Phosphorus Magnesium Total Bilirubin AST ALT Alkaline Phosphatase Total Protein Albumin Imaging: ITS Impressions Abdomen/Pelvis CT 11/19/17 03:55 CONCLUSION: 1. Limited, suboptimal examination performed without intravenous or oral contrast. The study is degraded by motion artifact as well. 2. Abnormal bowel gas pattern with multiple small air-fluid levels. The bowel is suboptimally visualized and evaluated secondary to the lack of the intravenous and oral contrast as well as diffuse ascites. This may represent a gastroenteritis and/or ileus. Obstruction is less likely. 3. Diffuse ascites throughout the abdomen and pelvis. 4. Moderate size right effusion which is increased from the prior study. There is a new small left effusion. 5. Moderate cardiomegaly. 6. No definite gallstones identified. Head CT 11/19/17 03:55 CONCLUSION: 1. No acute hemorrhage or mass effect. 2. Mild motion and streak artifact. . Head MRI 12/05/17 00:00 CONCLUSION: 1. Edema with restricted diffusion in the medial right superior cerebellum. Imaging findings are characteristic of recent ischemia. 2. Chronic findings include generalized cerebral atrophy with moderate chronic periventricular and subcortical white matter signal change characteristic of chronic microvascular ischemia. The punctate area of signal change in the right centrum semiovale is suspected to represent white matter signal change but nonacute ischemia. Chest X-Ray 12/08/17 06:00 CONCLUSION: Diffuse increased interstitial markings likely related to diffuse processes such as diffuse edema, infection, or ARDS. Further increased density at the bases related to consolidation, atelectasis and /or effusion. Physical Exam: GENERAL: Sedated, on the vent, looks ok SKIN: Cool and dry. No generalized rash, no ecchymoses and no evidence of embolic lesions. HEAD: Atraumatic. Normocephalic. No temporal wasting, or tenderness. EYES: [place] conjunctiva. No petechia or hemorrhage. Pupils equal, round and reactive to light. No scleral icterus. EARS, NOSE AND THROAT: Nose without bleeding or purulent nasal discharge. He is orally intubated. NECK: Trachea midline. Supple and not tender, no meningeal signs CARDIOVASCULAR: Irregular rate and rhythm. No murmurs, rubs or gallops heard. Sternotomy scar compatible with surgical history. RESPIRATORY: Coarse breath sounds bilaterally, decreased at the bases. ABDOMEN: Soft, non-tender, nondistended. Bowel sounds present and normoactive. No guarding. No rebound. No organomegaly. EXTREMITIES: No clubbing, cyanosis, or edema. No calf tenderness. Well perfused and warm. NEUROLOGICAL: Opens eyes when stimulated, not interacting. No Babinski, or ankle clonus. PSYCHIATRIC: Unable to assess LINE: No evidence of infection, has RSC TLC : Condom cath in place, urine looks ok. Assessment and Plan - Plan Impression Sepsis CLABSI (central line associated blood stream infection) Fevers since 11/28, has been on vent since 11/19 - temps higher again - has HCAP/VAP, C/S with Enterobacter and Klebsiella - UTI, UC with E coli ESBL+ Kleb and Enterobacter PNA E coli ESBL UTI Acute Respiratory failure, CHF, PNA Cardiomyopathy, EF <10% Prior MV repair Active cocaine use per resports Newly Dx HIV, CD4 count 60. S/P renal failure, had 2 HD, renal function improved Recommendation Continue Ertapenem IV. Continue Diflucan IV. Continue Vanco IV (target 15-20) Consider starting Bactrim for PCP prophylaxis. Will dw on Saturday. Removal of CL if not needed and alternate access can be obtained by vascular team. If change in clinical condition consider iglesias cultures and escalating antibiotics to Meropenem IV and Vanco IV plus/- Micafungin at risk for Fungemia as has a line. If goals remain aggressive may need further workup. RN informs me patient family considering withdrawing on Saturday next week. Monitor temps Monitor progress Weaning as tolerated per CCM son Snider to resume care on Saturday12/09/17. If any changes in the interim please call sooner.
--- NOTE | 2017-12-09 02:38 | XR ---
EXAM DATE: 12/09/2017 2:23 AM EDT AGE/SEX: 57 years / Male INDICATIONS: Shortness of breath, possible pulmonary disease. CLINICAL DATA: This is the patient's subsequent encounter. Patient reports that signs and symptoms h ave been present for 1 week and indicates a pain score of Nonresponsive. MEDICAL/SURGICAL HISTORY: Congestive heart failure. None. COMPARISON: [facility] [place], CHEST 1V SINGLE AP, 12/08/2017. . FINDINGS: A single AP view of the chest demonstrates some improvement within the basilar consolidations when co mpared to the prior study. Interstitial prominence is unchanged. A tiny right pleural effusion is sta ble. Heart is mildly enlarged but unchanged. Tip of endotracheal tube 5 cm from the [place]. Tip of th e nasogastric tube courses off the inferior margin of the film. CONCLUSION: Improving basilar consolidations in a radiographic pattern most suggestive of pulmonary edema. Electronically signed by: Brian Pugh MD 12/09/2017 2:37 AM EDT
[2017-12-09 05:16] LABS: Baso % (Auto) 0.5 % (0.0-2.0); Eos # (Auto) 0.1 th/mm3 (0.0-0.4); Eos % (Auto) 2.4 % (0.0-4.0); Hematocrit 43.2 % (39.0-51.0); Hemoglobin 13.7 gm/dL (13.0-17.0); Lymph # (Auto) 0.8 th/mm3 (1.0-4.8); Lymph % (Auto) 13.4 % (9.0-44.0); Mean Corpuscular HGB Conc 31.7 % (32.0-36.0); Mean Corpuscular Hemoglobin 29.1 pg (27.0-34.0); Mean Corpuscular Volume 91.6 fL (80.0-100.0); Mean Platelet Volume 9.1 fL (7.0-11.0); Mono # (Auto) 0.5 th/mm3 (0.0-0.9); Mono % (Auto) 9.3 % (0.0-8.0); Neut # (Auto) 4.3 th/mm3 (1.8-7.7); Neut % (Auto) 74.4 % (16.0-70.0); Platelet Count 189 th/mm3 (150-450); Red Blood Count 4.71 mil/mm3 (4.50-5.90); Red Cell Distribution Width 14.8 % (11.6-17.2); White Blood Count 5.8 th/mm3 (4.0-11.0)
[2017-12-09 05:17] LABS: Alanine Aminotransferase 39 U/L (12-78); Albumin 1.8 g/dL (3.4-5.0); Alkaline Phosphatase 70 U/L (45-117); Anion Gap 6 meq/L (5-15); Aspartate Aminotransferase 67 U/L (15-37); Blood Urea Nitrogen 26 mg/dL (7-18); Calcium 8.1 mg/dL (8.5-10.1); Carbon Dioxide 28.9 meq/L (21.0-32.0); Chloride 100 meq/L (98-107); Glomerular Filtration Rate Greater Than 89 mL/min (>89); Glucose,Random 93 mg/dL (74-106); Magnesium 2.2 mg/dL (1.5-2.5); Phosphorus 3.7 mg/dL (2.5-4.9); Sodium 135 meq/L (136-145); Total Protein 7.7 g/dL (6.4-8.2)
[2017-12-09] MEDS: Vancomycin Inj 1,250 MG in Sodium Chlor 0.9% Inj 250 ML IV.SIG SCH ×2 (05:22→18:36)
[2017-12-09 05:23] LABS: Potassium 4.7 meq/L (3.5-5.1)
[2017-12-09] MEDS: Insulin NovoLIN Regular Correctional Sugar Inj SQ SCH ×4 (05:23→18:25)
[2017-12-09] MEDS: Acetaminophen 325 MG Tablet PO PRN (05:23)
[2017-12-09] MEDS: Heparin - SQ 10,000 UNITS/ML Vial SQ SCH ×3 (05:23→21:13)
[2017-12-09] MEDS ORDERED: Pharmacy Ordered Lab Info OTHER ONE ×2 (05:45→17:45)
[2017-12-09] MEDS: Midazolam 50 MG/50 ML Inj 50 MG/50 ML BAG IV.CONT PRN ×3 (06:37→21:18)
[2017-12-09] MEDS: Lisinopril 5 MG Tablet PO SCH (08:44)
[2017-12-09] MEDS: Fluconazole 100 MG Tablet PO SCH (08:44)
[2017-12-09] MEDS: Senna/Docusate Sodium 8.6/50 MG Tablet PO SCH ×2 (08:44→21:13)
[2017-12-09] MEDS: Hypromellose 0.3% Opth Gel 10 GM Bottle EACH EYE SCH ×2 (08:45→21:13)
--- NOTE | 2017-12-09 12:58 | P.DIET ---
Nutritional Evaluation Type of nutrition evaluation: follow-up Nutrition consult regarding: Tube Feeding Objective - Diagnosis AMS, Acute Kidney Injury, CHF Exac, Hyperkalemia - Objective [place] body weight: 78.2 kg % IBW: 81 (IBW = 172#) Body Weight Used for Calculations: Actual (63.5) Energy Needs - Lower Range (kCal/kg): 30 Energy Needs - Upper Range (kCal/kg): 35 Lower Limit kCal/kg (kCals): 1,905 Upper Limit kCal/kg (kCals): 2,223 Lower Limit Protein Factor (Grams per Kg): 1.2 Upper Limit Protein Factor (Grams per Kg): 1.5 Lower Protein Needs (Protein): 76 Upper Protein Needs (Protein): 95 Dietitian Reviewed in Medical Record: Curent medications, Intake & Output, Labs , Medical history, Tube feeding Diet Order: NPO Objective Comments: PMH: Cardiomyopathy EF 20%, recent MVR, ongoing cocaine use Feeding - Current Tube Feeding Tube Feeding Product: Glucerna 1.5 Tube Feeding Rate: 55 Current kCals Provided by Tube Feedin,980 Current Protein Provided by Tube Feeding (gPRO): 109 Current Free H2O Provided (m/l): 1,002 Assessment Assessment: Pt is at nutritional risk r/t need for TF'ing. HD has been d/c'ed. Pt is adequately meeting needs with TFing of Glucerna 1.5 @ 55 mls/hr. Labs, wts and clinical course reviewed. CBW = 68 kg. LBM 12/09. Recommendations: Continue Glucerna 1.5 to 55 mls/hr goal Dietitian to Monitor: Lab values, Electrolytes, Renal labs, Glucose level, Intake & Output, Tube feeding tolerance, Weight change, Medical course
--- NOTE | 2017-12-09 14:00 | P.PNPAL ---
Reason for Visit Reason for visit: a. To assist with evaluation and management of symptoms including: Altered mental status, edema b. To assist medical decision maker(s) with: better understanding of current medical conditions; weighing benefits/burdens of medical treatment options; making medical treatment decisions. Subjective Subjective/Interval History: Follow up medically necessary for symptom management of altered mental status and edema and further clarification of goals of medical treatment. He is day 20 status post intubation. The family has been struggling with the decision for trach/PEG versus withdrawal and comfort care. Clinically he remains febrile, T-MAX 101.5, tachycardic with pulse rates 110-120 bpm, normotensive. Patient remains on Versed for vent synchrony due to agitation during sedation vacations. He is noted to have spontaneous movement, not to command. Brain MRI done shows edema with restricted diffusion in the medial right superior cerebellum, characteristic of recent ischemia. Chest x- ray continues to be indicative of pulmonary edema. EEG done 12/05 shows an abnormal study consistent with moderate encephalopathy. Neurology consultation indicates severe encephalopathy from shock as well as cerebellar infarction, probably related to cocaine abuse. He is being followed by infectious disease for multiple infections to include ESBL E. coli in the urine, Enterobacter and Klebsiella in the sputum. Blood cultures have now returned positive for gram- positive cocci and vancomycin has been initiated. 2+ edema noted in bilateral arms. He continues to receive furosemide 40 mg IV daily. No ultrasound imaging is available to evaluate for possible thrombosis. Last hemodialysis was 11/22. Urinary output improving. . Family/Friend Interactions: Spoke with patient's mother and sister, Kaylie, via telephone who verified that they are considering hospice and withdrawal but are unable to come to the hospital today. They state they can come tomorrow and plan to meet with palliative care at 1 PM for final decision making. Discussed hospice with the family and the difference between withdrawing at the hospital versus the care center. Family wishes to consider overnight prior to making that decision. . Advance Directives Living Will: Never completed Health Care Surrogate: Never completed Durable Power of Supervisor Slashing Department: Never completed Health Care Surrogate Name and Number: HCP: Jaky Medina [phone]/ Objective Vital Signs: Vital Signs 12/08/17 14:00 12/08/17 14:30 12/08/17 14:46 Temperature Pulse Rate 86 96 H 103 H Respiratory Rate 16 15 16 Blood Pressure 105/68 114/86 Pulse Oximetry 100 97 100 12/08/17 15:00 12/08/17 15:30 12/08/17 16:00 Temperature 99.3 F Pulse Rate 101 H 106 H 97 H Respiratory Rate 17 35 H 16 Blood Pressure 121/75 114/77 110/85 Pulse Oximetry 98 100 99 12/08/17 16:30 12/08/17 17:00 12/08/17 17:30 Temperature Pulse Rate 102 H 109 H 105 H Respiratory Rate 16 16 16 Blood Pressure 106/74 121/80 115/80 Pulse Oximetry 100 99 100 12/08/17 18:00 12/08/17 18:30 12/08/17 19:00 Temperature Pulse Rate 102 H 101 H 96 H Respiratory Rate 16 16 16 Blood Pressure 116/76 117/71 129/76 Pulse Oximetry 99 100 100 12/08/17 19:30 12/08/17 20:00 12/08/17 20:30 Temperature 99.5 F Pulse Rate 104 H 88 93 H Respiratory Rate 17 16 19 Blood Pressure 125/85 107/68 113/83 Pulse Oximetry 77 L 100 97 12/08/17 21:00 12/08/17 21:10 12/08/17 21:13 Temperature Pulse Rate 84 90 Respiratory Rate 16 16 16 Blood Pressure 105/68 Pulse Oximetry 99 98 12/08/17 21:30 12/08/17 22:00 12/08/17 22:30 Temperature Pulse Rate 95 H 100 H 113 H Respiratory Rate 16 16 18 Blood Pressure 131/91 H 113/80 121/90 Pulse Oximetry 90 L 90 L 92 L 12/08/17 23:00 12/08/17 23:30 12/09/17 00:00 Temperature 98.8 F Pulse Rate 97 H 104 H 102 H Respiratory Rate 16 17 16 Blood Pressure 116/75 114/81 110/73 Pulse Oximetry 92 L 94 L 92 L 12/09/17 00:30 12/09/17 00:36 12/09/17 01:00 Temperature Pulse Rate 101 H 104 H Respiratory Rate 17 16 16 Blood Pressure 106/72 110/75 Pulse Oximetry 93 L 93 L 93 L 12/09/17 01:30 12/09/17 02:00 12/09/17 02:06 Temperature Pulse Rate 100 H 117 H 111 H Respiratory Rate 16 25 H 16 Blood Pressure 108/70 113/80 Pulse Oximetry 97 12/09/17 03:00 12/09/17 04:00 12/09/17 04:24 Temperature 101.5 F H Pulse Rate 109 H 106 H 111 H Respiratory Rate 16 16 16 Blood Pressure 115/79 113/76 Pulse Oximetry 98 90 L 12/09/17 05:18 12/09/17 08:53 12/09/17 09:44 Temperature Pulse Rate 94 H Respiratory Rate 18 16 22 Blood Pressure Pulse Oximetry 97 100 Intake & Output 12/08/17 12/09/17 12/09/17 18:59 06:59 18:59 Intake Total 774 / 774 1230.5 / 1230.5 Output Total 1600 / 1600 325 / 325 Balance -826 / -826 905.5 / 905.5 Weight 149 lb 14.629 oz Intake: IV 572.5 / 572.5 Versed Inj 50 mg In 50 ml @ 2 50 / 50 MG/HR 2 mls/hr IV.CONT TITRATE PRN Rx#:[id number] Sodium Phosphate Inj 30 MMOL In 260 / 260 NS Inj 250 ML @ 40 mls/hr IV. SIG ONCE ONE Rx#:[id number] Vancomycin Inj 1,250 MG In NS 262.5 / 262.5 Inj 250 ML @ 250 mls/hr IV.SIG Q12H RUDDY Rx#:[id number] Oral 0 / 0 Tube Feeding 636 / 636 658 / 658 Water Bolus Amount 120 / 120 Output: Urine 1600 / 1600 325 / 325 Other: Date of Last Bowel Movement 12/08/17 12/09/17 # Bowel Movements 1 1 Physical Exam: CONSTITUTIONAL/GENERAL: This is an adequately nourished patient, intubated, sedated, in no apparent distress. TUBES/LINES/DRAINS: Right arm PIV x2, ETT, Condom catheter,OGT, . SKIN: No jaundice, rashes, or lesions. No wounds seen anteriorly. Normothermic. HEAD: Atraumatic. Normocephalic. EYES: PERRLA. No scleral icterus. No injection or drainage. Fundi not examined. ENT: Nose without bleeding or purulent drainage. Orally intubated. NECK: Trachea midline. Supple, nontender. CARDIOVASCULAR: S1, S2, S3. Irregular rhythm, controlled rate without gallops, or rubs. Soft 2/6 systolic ejection murmur. No JVD. Pedal pulses+ve RESPIRATORY/CHEST: Symmetric, unlabored respirations. Rhonchi to auscultation. GASTROINTESTINAL: Abdomen soft, nondistended. Intermittent BS. OGT. Rectal bag in place GENITOURINARY: Without palpable bladder distension. Condom catheter MUSCULOSKELETAL: Extremities without clubbing or cyanosis, trace edema to BLE, 2 + to BUE. No mottling or clubbing. NEUROLOGICAL: Intubated, sedated. On Midazolam. Withdraws with all 4 extremities PSYCHIATRIC: Unable to assess. Currently sedated and calm. . Diagnostic Tests Laboratory: Laboratory Results - last 72 hr 12/05/17 12/05/17 12/06/17 11:15 13:11 14:08 WBC RBC Hgb Hct MCV MCH MCHC RDW Plt Count MPV Neut % (Auto) Lymph % (Auto) [place] % (Auto) Eos % (Auto) Baso % (Auto) Neut # (Auto) Lymph # (Auto) Ro[place] # (Auto) Eos # (Auto) Baso # (Auto) WBC Differential Differential Comment Sodium Potassium Chloride Carbon Dioxide Anion Gap BUN Creatinine Estimated GFR POC Glucose 100 Random Glucose Calcium Phosphorus Magnesium Total Bilirubin AST ALT Alkaline Phosphatase Total Protein Albumin Urine Color Urine Clarity Urine pH Ur Specific [place] Urine Protein Urine Glucose (UA) Urine Ketones Urine Occult Blood Urine Nitrate Urine Bilirubin Urine Urobilinogen Ur Leukocyte Esterase Urine RBC Urine WBC Hyaline Casts Urine Mucus Micro UA Comment Urine Culture Comments Actin IgG Antibody 40 H HCV RNA (PCR) IUs/ml [id number] H HCV RNA PCR log IUs/ml 5.55 H 12/06/17 12/06/17 12/06/17 17:30 18:32 23:19 WBC RBC Hgb Hct MCV MCH MCHC RDW Plt Count MPV Neut % (Auto) Lymph % (Auto) Ro[place] % (Auto) Eos % (Auto) Baso % (Auto) Neut # (Auto) Lymph # (Auto) Roane # (Auto) Eos # (Auto) Baso # (Auto) WBC Differential Differential Comment Sodium Potassium Chloride Carbon Dioxide Anion Gap BUN Creatinine Estimated GFR POC Glucose 117 H 100 Random Glucose Calcium Phosphorus Magnesium Total Bilirubin AST ALT Alkaline Phosphatase Total Protein Albumin Urine Color Yellow Urine Clarity Clear Urine pH 6.0 Ur Specific [place] 1.010 Urine Protein Negative Urine Glucose (UA) Negative Urine Ketones Negative Urine Occult Blood Moderate H Urine Nitrate Negative Urine Bilirubin Negative Urine Urobilinogen 4 or greater Ur Leukocyte Esterase Trace H Urine RBC 18 H Urine WBC 1 Hyaline Casts 1 Urine Mucus Few H Micro UA Comment Cath-culture not ind Urine Culture Comments Cath-cult not ind Actin IgG Antibody HCV RNA (PCR) IUs/ml HCV RNA PCR log IUs/ml 12/07/17 12/07/17 12/07/17 04:07 04:07 05:19 WBC 6.3 RBC 4.17 L Hgb 12.1 L Hct 37.7 L MCV 90.4 MCH 28.9 MCHC 32.0 RDW 14.8 Plt Count 222 MPV 9.2 Neut % (Auto) 83.9 H Lymph % (Auto) 7.3 L Ro[place] % (Auto) 6.0 Eos % (Auto) 2.0 Baso % (Auto) 0.8 Neut # (Auto) 5.3 Lymph # (Auto) 0.5 L [place] # (Auto) 0.4 Eos # (Auto) 0.1 Baso # (Auto) 0.0 WBC Differential . Differential Comment Auto diff final Sodium 138 Potassium 3.9 Chloride 101 Carbon Dioxide 32.0 Anion Gap 5 BUN 26 H Creatinine 0.77 Estimated GFR Greater than 89 POC Glucose 115 H Random Glucose 109 H Calcium 7.8 L Phosphorus 2.7 Magnesium 1.9 Total Bilirubin AST ALT Alkaline Phosphatase Total Protein Albumin Urine Color Urine Clarity Urine pH Ur Specific [place] Urine Protein Urine Glucose (UA) Urine Ketones Urine Occult Blood Urine Nitrate Urine Bilirubin Urine Urobilinogen Ur Leukocyte Esterase Urine RBC Urine WBC Hyaline Casts Urine Mucus Micro UA Comment Urine Culture Comments Actin IgG Antibody HCV RNA (PCR) IUs/ml HCV RNA PCR log IUs/ml 12/07/17 12/07/17 12/08/17 12:20 17:29 00:20 WBC RBC Hgb Hct MCV MCH MCHC RDW Plt Count MPV Neut % (Auto) Lymph % (Auto) Ro[place] % (Auto) Eos % (Auto) Baso % (Auto) Neut # (Auto) Lymph # (Auto) Ro[place] # (Auto) Eos # (Auto) Baso # (Auto) WBC Differential Differential Comment Sodium Potassium Chloride Carbon Dioxide Anion Gap BUN Creatinine Estimated GFR POC Glucose 106 120 H 116 H Random Glucose Calcium Phosphorus Magnesium Total Bilirubin AST ALT Alkaline Phosphatase Total Protein Albumin Urine Color Urine Clarity Urine pH Ur Specific [place] Urine Protein Urine Glucose (UA) Urine Ketones Urine Occult Blood Urine Nitrate Urine Bilirubin Urine Urobilinogen Ur Leukocyte Esterase Urine RBC Urine WBC Hyaline Casts Urine Mucus Micro UA Comment Urine Culture Comments Actin IgG Antibody HCV RNA (PCR) IUs/ml HCV RNA PCR log IUs/ml 12/08/17 12/08/17 12/08/17 04:11 04:11 05:07 WBC 4.3 RBC 4.25 L Hgb 12.6 L Hct 38.5 L MCV 90.6 MCH 29.7 MCHC 32.7 RDW 14.8 Plt Count 222 MPV 9.8 Neut % (Auto) 73.7 H Lymph % (Auto) 12.7 Roane % (Auto) 7.3 Eos % (Auto) 5.8 H Baso % (Auto) 0.5 Neut # (Auto) 3.2 Lymph # (Auto) 0.5 L Ro[place] # (Auto) 0.3 Eos # (Auto) 0.2 Baso # (Auto) 0.0 WBC Differential . Differential Comment Auto diff final Sodium 136 Potassium 4.5 Chloride 100 Carbon Dioxide 28.4 Anion Gap 8 BUN 24 H Creatinine 0.68 Estimated GFR Greater than 89 POC Glucose 122 H Random Glucose 99 Calcium 8.1 L Phosphorus 2.4 L Magnesium 2.2 Total Bilirubin 0.5 AST 56 H ALT 38 Alkaline Phosphatase 76 Total Protein 7.5 Albumin 1.8 L Urine Color Urine Clarity Urine pH Ur Specific [place] Urine Protein Urine Glucose (UA) Urine Ketones Urine Occult Blood Urine Nitrate Urine Bilirubin Urine Urobilinogen Ur Leukocyte Esterase Urine RBC Urine WBC Hyaline Casts Urine Mucus Micro UA Comment Urine Culture Comments Actin IgG Antibody HCV RNA (PCR) IUs/ml HCV RNA PCR log IUs/ml 12/08/17 12/08/17 12/08/17 10:56 17:33 23:31 WBC RBC Hgb Hct MCV MCH MCHC RDW Plt Count MPV Neut % (Auto) Lymph % (Auto) Ro[place] % (Auto) Eos % (Auto) Baso % (Auto) Neut # (Auto) Lymph # (Auto) [place] # (Auto) Eos # (Auto) Baso # (Auto) WBC Differential Differential Comment Sodium Potassium Chloride Carbon Dioxide Anion Gap BUN Creatinine Estimated GFR POC Glucose 118 H 135 H 123 H Random Glucose Calcium Phosphorus Magnesium Total Bilirubin AST ALT Alkaline Phosphatase Total Protein Albumin Urine Color Urine Clarity Urine pH Ur Specific [place] Urine Protein Urine Glucose (UA) Urine Ketones Urine Occult Blood Urine Nitrate Urine Bilirubin Urine Urobilinogen Ur Leukocyte Esterase Urine RBC Urine WBC Hyaline Casts Urine Mucus Micro UA Comment Urine Culture Comments Actin IgG Antibody HCV RNA (PCR) IUs/ml HCV RNA PCR log IUs/ml 12/09/17 12/09/17 12/09/17 04:23 04:23 13:16 WBC 5.8 RBC 4.71 Hgb 13.7 Hct 43.2 MCV 91.6 MCH 29.1 MCHC 31.7 L RDW 14.8 Plt Count 189 MPV 9.1 Neut % (Auto) 74.4 H Lymph % (Auto) 13.4 Roane % (Auto) 9.3 H Eos % (Auto) 2.4 Baso % (Auto) 0.5 Neut # (Auto) 4.3 Lymph # (Auto) 0.8 L [place] # (Auto) 0.5 Eos # (Auto) 0.1 Baso # (Auto) 0.0 WBC Differential . Differential Comment Auto diff final Sodium 135 L Potassium 4.7 Chloride 100 Carbon Dioxide 28.9 Anion Gap 6 BUN 26 H Creatinine 0.98 Estimated GFR Greater than 89 POC Glucose 116 H Random Glucose 93 Calcium 8.1 L Phosphorus 3.7 D Magnesium 2.2 Total Bilirubin 0.7 AST 67 H ALT 39 Alkaline Phosphatase 70 Total Protein 7.7 Albumin 1.8 L Urine Color Urine Clarity Urine pH Ur Specific [place] Urine Protein Urine Glucose (UA) Urine Ketones Urine Occult Blood Urine Nitrate Urine Bilirubin Urine Urobilinogen Ur Leukocyte Esterase Urine RBC Urine WBC Hyaline Casts Urine Mucus Micro UA Comment Urine Culture Comments Actin IgG Antibody HCV RNA (PCR) IUs/ml HCV RNA PCR log IUs/ml Result Diagrams: 12/09/17 04:23 12/09/17 04:23 Microbiology: Microbiology 12/06/17 13:09 Aerobic Blood Culture - Preliminary Blood - Line Staphylococcus coag negative Anaerobic Blood Culture - Preliminary No growth in 3 days 12/06/17 13:03 Aerobic Blood Culture - Preliminary Blood - Peripheral No growth in 3 days Anaerobic Blood Culture - Preliminary Staphylococcus epidermidis 12/08/17 12:20 Aerobic Blood Culture - Preliminary Blood - Peripheral No growth in 1 day Anaerobic Blood Culture - Preliminary No growth in 1 day 12/08/17 12:10 Aerobic Blood Culture - Preliminary Blood - Peripheral No growth in 1 day Anaerobic Blood Culture - Preliminary No growth in 1 day 12/07/17 19:35 Aerobic Blood Culture - Preliminary Blood - Peripheral No growth in 2 days Anaerobic Blood Culture - Preliminary No growth in 2 days 12/07/17 19:30 Aerobic Blood Culture - Preliminary Blood - Peripheral No growth in 2 days Anaerobic Blood Culture - Preliminary No growth in 2 days Procedures: 11/19/2017: Right radial arterial line placement 11/19/2017: Endotracheal intubation 11/19/2017: Right subclavian triple-lumen catheter placement 11/19/2017 right IJ dialysis catheter placement Dc`d 11/26/17 . 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 He was never and has no children. He was previously in the [employer]. Spiritual: Director [employer] available. Legal: No living will or healthcare surrogate completed. Ethical issues impacting care: None noted. . Important Contacts: Mother: Angelina Medina healthcare proxy- Currently living with daughter, Kaylie Gama. Sister: Bryan Sharp Sister: Kamillebrittney Verduog Brother: Mangonia Parkbetsy Verdugo Brother: Carter Chavez Sister: Kaylie Gama - , C [phone] . Prognosis: His prognosis is poor. He has end-stage heart disease now with an ejection fraction estimated to be less than 10% by time clock mechanic echo. He has suffered a decline in heart function since June 2017 when echocardiogram showed a 50-55% ejection fraction at the time of mitral valve repair. Patient continued to abuse cocaine and possibly other substances and when seen in [place] September 2017 for chest pain was found to have non-ischemic cardiomyopathy with a normal coronary artery circulation and ejection fraction of 20-25%. Echocardiogram at this admission shows cardiogenic shock with an EF less than 10%. He is now requiring inotropic support with milrinone and now has acute kidney injury requiring dialysis for both hyperkalemia and fluid overload. At this time he remains on life support, intubated, but is at elevated risk for continued complications and decline. He would be hospice appropriate if goals were consistent. . Code Status: No Code DNR (Do not reintubate) Plan: PLAN: Legal decision maker: At this time the patient is not capacitated for decision making and it is not certain that he will ever regain capacity. He was never and has no children. His mother would be his proxy decision maker per [place] statutes. She had previously been reported to me as demented and unable to make these decisions, however, her daughter, Kaylie, who is her caregiver disputes that and states that her mother is perfectly capable of making these decisions and wishes to be her son's decision-maker. In conversation with Ms. Medina, herself, she appeared appropriate and capable of decision-making. Goals: Aggressive short of no code. Awaiting family to come in today as promised to make a decision whether to proceed with tracheostomy and PEG placement or compassionately withdrawing from life support. Family had discussion with Dr. Bello and have postponed decision making to 12/10/17 CODE STATUS: DO NOT RESUSCITATE SYMPTOMS: * Altered mental status: Presented with altered mental status, positive for cocaine, hypoglycemic, hyperkalemic, in fulminant heart failure, minimally able to make his needs known. Shortly thereafter he required intubation and sedation. Bedside critical care echo showed severe biventricular dysfunction with EF less than 10%, aortic valve opening only minimally due to low flow. HIV positive-CD4 count 60, end stage AIDS, ?AIDS related dementia. Patient continues to be agitated when sedation is weaned off. MRI brain on 12/05 revealed right sided superior cerebellar CVA with some edema. EEG on 12/05 revealed mild encephalopathy. No recommendations at this time * Edema: Edema is improving on hemodialysis, which is on hold after today's ultrafiltration as patient's renal status is stabilizing and is having some urine output. Given his severe heart failure, borderline hypotension and impaired renal function, this is likely to be an ongoing problem. Last hemodialysis on 11/23. Edema currently managed with Furosemide 40mg IVP daily. Trace edema to bilateral upper extremities. Elevate BLE. Monitor I &Os. If family decides to proceed with trach/PEG, rather than withdrawal, could consider upper extremity venous Doppler to evaluate for thrombosis if edema persists. Palliative care will continue to follow the patient during hospital course as condition evolves, to assist patient/decision-maker with understanding of their medical conditions, weighing benefits/burdens of treatment options, for clarification of goals of treatment. Additionally will assist with any symptoms of palliative concern. . Attestation Attestation: To help prompt me to consider important information that might be impacting today's encounter and assessment, information from prior notes written by myself or my colleagues may have been "brought forward" into today's note. My signature on this note, however, is an attestation that I personally performed the exam, history, and/or decision-making noted today, and, unless otherwise indicated, the interactions with patient, family, and staff as well as the review of records all occurred today. I also attest that the listed assessment and stated plan reflect my best clinical judgment today based on the combination of historical information, prior notes, and today's exam/ interactions. When time spent is documented, it refers only to time spent today by the signer, or if indicated, combined time spent today by collaborating physician/nurse practitioner. .
--- NOTE | 2017-12-09 15:39 | P.PNID ---
Subjective Remarks: is a 57-year-old male, brought into the hospital after he was noted by his friend to have some altered mental status. He was noted to have a blood sugar of 50 in the ambulance and he received some dextrose with some improvement in his mentation. He was able to give some history to the ED MD, and admitted that he has been using cocaine, but he has denied any chest pain, shortness of breath. In the emergency room he was found to have an elevated creatinine of 2.4, potassium of 7, elevated LFTs and CPK, as well as B natriuretic peptide of 4307. He was acidotic. His mental status continued to deteriorate in the emergency room, and he developed progressive obtundation, and required emergent intubation. He also became hypotensive, and he had an echo done at bedside with severe biventricular dysfunction with an EF of less than 10%. He was placed on epinephrine for cardiogenic shock. Since that time patient has remained intubated. He had emergent hemodialysis, and his electrolytes improved, as well as his creatinine. He is off HD now. He has moderate clear secretions in his ET. He has not been tolerating CPAP trials. Palliative medicine is also following patient, and he has DNR status. Patient has history of cardiomyopathy with a prior EF of 20%, and had undergone mitral valve repair back in June 2017. During his mitral valve surgery he had a preserved LV function, but post operative, he apparently continued to use cocaine and had subsequent hospital admission with documentation of a decrease in his EF to about 20%. On this admission patient had HIV testing, and the results came back positive. Over the last 2448 hrs., his temperature had increased. He had cultures done, and his sputum culture is growing Enterobacter and Klebsiella, and his urine culture has E. coli ESBL positive. Patient currently is afebrile. His hemodynamics are stable. Monitor shows sinus rhythm, with frequent PACs. His chest x-ray has evidence of pulmonary vascular congestion. Infectious disease consultation has been requested to assist with management of his multiple infections. Notes reviewed Continues with fevers Vent dependent Has 2 BC with Coag Neg Staph On Vanco now Central line has been removed Being evaluated by palliative medicine, has family meeting being set up Not much secretions. UO ok. Has a condom cath. CD4 count 60. ESBL E.coli in the urine. Sputum with Enterobacter and Kleb Antibiotics: Ertapenem IV Vanco IV Diflucan Lines: PIV Past Medical History: COPD (chronic obstructive pulmonary disease) Diabetes Gout Non-ischemic cardiomyopathy CHF (congestive heart failure) Cocaine use Hypertension H/O mitral valve repair Hep C HIV Allergies/Adverse Reactions: Allergies No Known Allergies Allergy (Unverified 11/19/17 04:45) Objective Vital Signs 12/08/17 16:00 12/08/17 16:30 12/08/17 17:00 Temperature 99.3 F Pulse Rate 97 H 102 H 109 H Respiratory Rate 16 16 16 Blood Pressure 110/85 106/74 121/80 Pulse Oximetry 99 100 99 12/08/17 17:30 12/08/17 18:00 12/08/17 18:30 Temperature Pulse Rate 105 H 102 H 101 H Respiratory Rate 16 16 16 Blood Pressure 115/80 116/76 117/71 Pulse Oximetry 100 99 100 12/08/17 19:00 12/08/17 19:30 12/08/17 20:00 Temperature 99.5 F Pulse Rate 96 H 104 H 88 Respiratory Rate 16 17 16 Blood Pressure 129/76 125/85 107/68 Pulse Oximetry 100 77 L 100 12/08/17 20:30 12/08/17 21:00 12/08/17 21:10 Temperature Pulse Rate 93 H 84 Respiratory Rate 19 16 16 Blood Pressure 113/83 105/68 Pulse Oximetry 97 99 98 12/08/17 21:13 12/08/17 21:30 12/08/17 22:00 Temperature Pulse Rate 90 95 H 100 H Respiratory Rate 16 16 16 Blood Pressure 131/91 H 113/80 Pulse Oximetry 90 L 90 L 12/08/17 22:30 12/08/17 23:00 12/08/17 23:30 Temperature Pulse Rate 113 H 97 H 104 H Respiratory Rate 18 16 17 Blood Pressure 121/90 116/75 114/81 Pulse Oximetry 92 L 92 L 94 L 12/09/17 00:00 12/09/17 00:30 12/09/17 00:36 Temperature 98.8 F Pulse Rate 102 H 101 H Respiratory Rate 16 17 16 Blood Pressure 110/73 106/72 Pulse Oximetry 92 L 93 L 93 L 12/09/17 01:00 12/09/17 01:30 12/09/17 02:00 Temperature Pulse Rate 104 H 100 H 117 H Respiratory Rate 16 16 25 H Blood Pressure 110/75 108/70 Pulse Oximetry 93 L 97 12/09/17 02:06 12/09/17 03:00 12/09/17 04:00 Temperature 101.5 F H Pulse Rate 111 H 109 H 106 H Respiratory Rate 16 16 16 Blood Pressure 113/80 115/79 113/76 Pulse Oximetry 98 90 L 12/09/17 04:24 12/09/17 05:00 12/09/17 05:18 Temperature Pulse Rate 111 H 101 H Respiratory Rate 16 16 18 Blood Pressure 114/77 Pulse Oximetry 96 97 12/09/17 06:00 12/09/17 07:00 12/09/17 08:00 Temperature 97.7 F Pulse Rate 109 H 93 H 80 Respiratory Rate 17 16 16 Blood Pressure 114/81 112/78 106/72 Pulse Oximetry 97 99 100 12/09/17 08:53 12/09/17 09:00 12/09/17 09:44 Temperature Pulse Rate 94 H 89 Respiratory Rate 16 16 22 Blood Pressure 116/82 Pulse Oximetry 100 12/09/17 10:00 12/09/17 11:00 12/09/17 12:00 Temperature 97.5 F L Pulse Rate 67 70 72 Respiratory Rate 16 16 16 Blood Pressure 103/70 113/80 110/78 Pulse Oximetry 100 100 100 12/09/17 13:00 12/09/17 13:54 12/09/17 14:00 Temperature Pulse Rate 76 90 Respiratory Rate 16 16 16 Blood Pressure 113/75 120/86 Pulse Oximetry 100 100 100 Intake & Output 12/08/17 12/09/17 12/09/17 18:59 06:59 18:59 Intake Total 774 / 774 1230.5 / 1230.5 Output Total 1600 / 1600 325 / 325 Balance -826 / -826 905.5 / 905.5 Weight 68 kg Intake: IV 572.5 / 572.5 Versed Inj 50 mg In 50 ml @ 2 50 / 50 MG/HR 2 mls/hr IV.CONT TITRATE PRN Rx#:[id number] Sodium Phosphate Inj 30 MMOL In 260 / 260 NS Inj 250 ML @ 40 mls/hr IV. SIG ONCE ONE Rx#:[id number] Vancomycin Inj 1,250 MG In NS 262.5 / 262.5 Inj 250 ML @ 250 mls/hr IV.SIG Q12H [facility] Rx#:[id number] Oral 0 / 0 Tube Feeding 636 / 636 658 / 658 Water Bolus Amount 120 / 120 Output: Urine 1600 / 1600 325 / 325 Other: Date of Last Bowel Movement 12/08/17 12/09/17 12/08/17 # Bowel Movements 1 1 12/06/17 13:09 Blood - Line Aerobic Blood Culture - Preliminary Staph. cohnii-urealyticum 12/06/17 13:09 Blood - Line Anaerobic Blood Culture - Preliminary No growth in 3 days 12/06/17 13:03 Blood - Peripheral Aerobic Blood Culture - Preliminary No growth in 3 days 12/06/17 13:03 Blood - Peripheral Anaerobic Blood Culture - Preliminary Staphylococcus epidermidis 12/08/17 12:20 Blood - Peripheral Aerobic Blood Culture - Preliminary No growth in 1 day 12/08/17 12:20 Blood - Peripheral Anaerobic Blood Culture - Preliminary No growth in 1 day 12/08/17 12:10 Blood - Peripheral Aerobic Blood Culture - Preliminary No growth in 1 day 12/08/17 12:10 Blood - Peripheral Anaerobic Blood Culture - Preliminary No growth in 1 day 12/07/17 19:35 Blood - Peripheral Aerobic Blood Culture - Preliminary No growth in 2 days 12/07/17 19:35 Blood - Peripheral Anaerobic Blood Culture - Preliminary No growth in 2 days 12/07/17 19:30 Blood - Peripheral Aerobic Blood Culture - Preliminary No growth in 2 days 12/07/17 19:30 Blood - Peripheral Anaerobic Blood Culture - Preliminary No growth in 2 days Lab - Hematology Results 12/08/17 12/09/17 04:11 04:23 WBC 4.3 5.8 RBC 4.25 L 4.71 Hgb 12.6 L 13.7 Hct 38.5 L 43.2 MCV 90.6 91.6 MCH 29.7 29.1 MCHC 32.7 31.7 L RDW 14.8 14.8 Plt Count 222 189 MPV 9.8 9.1 Neut % (Auto) 73.7 H 74.4 H Lymph % (Auto) 12.7 13.4 [place] % (Auto) 7.3 9.3 H Eos % (Auto) 5.8 H 2.4 Baso % (Auto) 0.5 0.5 Neut # (Auto) 3.2 4.3 Lymph # (Auto) 0.5 L 0.8 L [place] # (Auto) 0.3 0.5 Eos # (Auto) 0.2 0.1 Baso # (Auto) 0.0 0.0 WBC Differential . . Differential Comment Auto diff final Auto diff final Lab - Chemistry Results 12/07/17 12/08/17 12/08/17 17:29 00:20 04:11 Sodium 136 Potassium 4.5 Chloride 100 Carbon Dioxide 28.4 Anion Gap 8 BUN 24 H Creatinine 0.68 Estimated GFR Greater than 89 POC Glucose 120 H 116 H Random Glucose 99 Calcium 8.1 L Phosphorus 2.4 L Magnesium 2.2 Total Bilirubin 0.5 AST 56 H ALT 38 Alkaline Phosphatase 76 Total Protein 7.5 Albumin 1.8 L 12/08/17 12/08/17 12/08/17 05:07 10:56 17:33 Sodium Potassium Chloride Carbon Dioxide Anion Gap BUN Creatinine Estimated GFR POC Glucose 122 H 118 H 135 H Random Glucose Calcium Phosphorus Magnesium Total Bilirubin AST ALT Alkaline Phosphatase Total Protein Albumin 12/08/17 12/09/17 12/09/17 23:31 04:23 13:16 Sodium 135 L Potassium 4.7 Chloride 100 Carbon Dioxide 28.9 Anion Gap 6 BUN 26 H Creatinine 0.98 Estimated GFR Greater than 89 POC Glucose 123 H 116 H Random Glucose 93 Calcium 8.1 L Phosphorus 3.7 D Magnesium 2.2 Total Bilirubin 0.7 AST 67 H ALT 39 Alkaline Phosphatase 70 Total Protein 7.7 Albumin 1.8 L Imaging: ITS Impressions Abdomen/Pelvis CT 11/19/17 03:55 CONCLUSION: 1. Limited, suboptimal examination performed without intravenous or oral contrast. The study is degraded by motion artifact as well. 2. Abnormal bowel gas pattern with multiple small air-fluid levels. The bowel is suboptimally visualized and evaluated secondary to the lack of the intravenous and oral contrast as well as diffuse ascites. This may represent a gastroenteritis and/or ileus. Obstruction is less likely. 3. Diffuse ascites throughout the abdomen and pelvis. 4. Moderate size right effusion which is increased from the prior study. There is a new small left effusion. 5. Moderate cardiomegaly. 6. No definite gallstones identified. Head CT 11/19/17 03:55 CONCLUSION: 1. No acute hemorrhage or mass effect. 2. Mild motion and streak artifact. . Head MRI 12/05/17 00:00 CONCLUSION: 1. Edema with restricted diffusion in the medial right superior cerebellum. Imaging findings are characteristic of recent ischemia. 2. Chronic findings include generalized cerebral atrophy with moderate chronic periventricular and subcortical white matter signal change characteristic of chronic microvascular ischemia. The punctate area of signal change in the right centrum semiovale is suspected to represent white matter signal change but nonacute ischemia. Chest X-Ray 12/09/17 06:00 CONCLUSION: Improving basilar consolidations in a radiographic pattern most suggestive of pulmonary edema. Physical Exam: GENERAL: Sedated, on the vent, NAD SKIN: Cool and dry. No generalized rash, no ecchymoses and no evidence of embolic lesions. HEAD: Atraumatic. Normocephalic. No temporal wasting, or tenderness. EYES: [place]ctor conjunctiva. No petechia or hemorrhage. Pupils equal, round and reactive to light. No scleral icterus. EARS, NOSE AND THROAT: Nose without bleeding or purulent nasal discharge. He is orally intubated. NECK: Trachea midline. Supple and not tender, no meningeal signs CARDIOVASCULAR: Irregular rate and rhythm. No murmurs, rubs or gallops heard. Sternotomy scar compatible with surgical history. RESPIRATORY: Coarse breath sounds bilaterally, decreased at the bases. ABDOMEN: Soft, non-tender, nondistended. Bowel sounds present and normoactive. No guarding. No rebound. No organomegaly. EXTREMITIES: No clubbing, cyanosis, or edema. No calf tenderness. Well perfused and warm. NEUROLOGICAL: Opens eyes when stimulated, not interacting. No Babinski, or ankle clonus. PSYCHIATRIC: Unable to assess LINE: PIV no evidence of infection : Condom cath in place, urine looks ok. Assessment and Plan - Plan Impression Sepsis CLABSI (central line associated blood stream infection) Fevers recurrent - temps higher again - has HCAP/VAP, C/S with Enterobacter and Klebsiella - UTI, UC with E coli ESBL+ - new Staph Coag Neg bacteremia Kleb and Enterobacter PNA E coli ESBL UTI Acute Respiratory failure, CHF, PNA Cardiomyopathy, EF <10% Prior MV repair Active cocaine use per resports Newly Dx HIV, CD4 count 60. S/P renal failure, had 2 HD, renal function improved Recommendation Continue Ertapenem IV. Continue Diflucan IV. Continue Vanco IV (target 15-20) Follow temps [id number] progress Palliative medicine evaluating patient - looking at possible withdrawal, hospice ; meeting being set up
--- NOTE | 2017-12-09 19:39 | P.PNCC ---
Subjective Subjective Remarks/Hospital Course: 11/19: This is a 57yM with history of cardiomyopathy and an EF 20% who recently underwent mitral valve repair for severe MR. At that time, he had a preserved LVEF. However, he continued to use illicit cocaine, and on subsequent hospital admissions, his EF had fallen to 20%. He represents today with altered mental status, endorsing cocaine use. On further evaluation, he has a potassium of 7, Cr 2.4, AST/ALT 200/72, CK 1302, BNP 4307, co2 14. On my evaluation he is obtunded and agonally breathing, intermittently tachypneic. I performed bedside critical care echo which demonstrated a severe biventricular dysfunction and an EF < 10%. there was spontaneous echo contrast in the LV and the aortic valve appeared to open only minimally due to low-flow. Patient is grossly anasarcic with 3+ edema bilaterally up to the abdomen. he has JVD above the level of the mandible. I emergently intubated the patient (see separate procedure note for details). I emergently placed arterial, central lines, and dialysis catheter. potassium did not improve with medical therapy. we consulted nephrology for emergent HD. I also placed the patient on epinephrine drip for cardiogenic shock. due to the patient's mental status and clinical status, no additional information is available from him. ROS unobtainable. 11/20: Remains sedated, orally intubated on mechanical ventilation. Dialyzed this morning. Remains on pressors. 11/21: Remains sedated, orally intubated on mechanical ventilation. Hypothermic this morning. 11/22: Remains sedated, orally intubated on mechanical ventilation. Dialysis scheduled today 11/23: Remains sedated, orally intubated on mechanical ventilation. On milrinone. 11/24, 11/25: Remains sedated, orally intubated on mechanical ventilation. Tolerating tube feeds. 11/26: Sedated, orally intubated on mechanical ventilation. Tolerating tube feeds. 11/27 No events overnight. Sedated with Versed and intubated. On Milrinone drip. 11/29 Patient is sedated with Versed and intubated. Remains on Milrinone. T: 100.4 last night. Had 1 run (6 beats) asymptomatic Vtach overnight. Gets tachycardic and tachypneic with CPAP trials. 11/30 Patient remains sedated and intubated. T:100.4 last night. Not tolerating CPAP trials. 12/01 No events overnight. T:100.0 last night. Sedated with versed and on Milrinone. 12/02 Patient remains intubated and sedated. T;100.0 last night. On Versed and Diprivan infusion for sedation. Not tolerating CPAP trials. 12/03 No events overnight. Sedated and intubated. On Milrinone. Afebrile. 12/04 Patient remains sedated and intubated. Afebrile. 12/05: Afebrile. Start back on midazolam drip due to tachycardia/agitation. Heart rate currently in the 150s. Did not tolerate CPAP trial. Remains on milrinone at 0.25 mcg/kg/min 12/06: Resting comfortably in bed. Remains on midazolam drip at 6 mg an hour. MRI brain yesterday revealed right-sided superior cerebellar CVA with some edema. Awaiting family decision for tracheostomy and PEG tube placement 12/07: T-max 101.2. Currently on midazolam drip at 10 mg an hour due to "agitation and tachypnea" overnight. 2 runs of nonsustained V. tach. Magnesium potassium being replaced. Subjective 12/08: T-max 100.5. Currently on midazolam drip at 7 mg an hour. Phosphorus currently being replaced. Plan for discussion about trach/PEG versus withdrawal of care tomorrow with mother and daughter. 12/09: no improvements. remains very critically ill. unlikely to survive. palliative discussion today and family still discussion withdraw vs. aggressive measures. Objective Vital Signs / I&O: Vital Signs 12/08/17 20:00 12/08/17 20:30 12/08/17 21:00 Temperature 37.5 C Pulse Rate 88 93 H 84 Respiratory Rate 16 19 16 Blood Pressure 107/68 113/83 105/68 Pulse Oximetry 100 97 99 12/08/17 21:10 12/08/17 21:13 12/08/17 21:30 Temperature Pulse Rate 90 95 H Respiratory Rate 16 16 16 Blood Pressure 131/91 H Pulse Oximetry 98 90 L 12/08/17 22:00 12/08/17 22:30 12/08/17 23:00 Temperature Pulse Rate 100 H 113 H 97 H Respiratory Rate 16 18 16 Blood Pressure 113/80 121/90 116/75 Pulse Oximetry 90 L 92 L 92 L 12/08/17 23:30 12/09/17 00:00 12/09/17 00:30 Temperature 37.1 C Pulse Rate 104 H 102 H 101 H Respiratory Rate 17 16 17 Blood Pressure 114/81 110/73 106/72 Pulse Oximetry 94 L 92 L 93 L 12/09/17 00:36 12/09/17 01:00 12/09/17 01:30 Temperature Pulse Rate 104 H 100 H Respiratory Rate 16 16 16 Blood Pressure 110/75 108/70 Pulse Oximetry 93 L 93 L 97 12/09/17 02:00 12/09/17 02:06 12/09/17 03:00 Temperature Pulse Rate 117 H 111 H 109 H Respiratory Rate 25 H 16 16 Blood Pressure 113/80 115/79 Pulse Oximetry 98 12/09/17 04:00 12/09/17 04:24 12/09/17 05:00 Temperature 38.6 C H Pulse Rate 106 H 111 H 101 H Respiratory Rate 16 16 16 Blood Pressure 113/76 114/77 Pulse Oximetry 90 L 96 12/09/17 05:18 12/09/17 06:00 12/09/17 07:00 Temperature Pulse Rate 109 H 93 H Respiratory Rate 18 17 16 Blood Pressure 114/81 112/78 Pulse Oximetry 97 97 99 12/09/17 08:00 12/09/17 08:53 12/09/17 09:00 Temperature 36.5 C Pulse Rate 80 94 H 89 Respiratory Rate 16 16 16 Blood Pressure 106/72 116/82 Pulse Oximetry 100 12/09/17 09:44 12/09/17 10:00 12/09/17 11:00 Temperature Pulse Rate 67 70 Respiratory Rate 22 16 16 Blood Pressure 103/70 113/80 Pulse Oximetry 100 100 100 12/09/17 12:00 12/09/17 13:00 12/09/17 13:54 Temperature 36.4 C L Pulse Rate 72 76 Respiratory Rate 16 16 16 Blood Pressure 110/78 113/75 Pulse Oximetry 100 100 100 12/09/17 14:00 12/09/17 15:00 12/09/17 15:49 Temperature Pulse Rate 90 69 76 Respiratory Rate 16 16 16 Blood Pressure 120/86 98/67 L Pulse Oximetry 100 100 100 12/09/17 16:00 12/09/17 17:00 12/09/17 18:00 Temperature 36.4 C Pulse Rate 78 70 83 Respiratory Rate 16 16 16 Blood Pressure 116/79 102/78 124/85 Pulse Oximetry 100 100 100 12/09/17 19:00 Temperature Pulse Rate 77 Respiratory Rate 16 Blood Pressure 115/79 Pulse Oximetry 100 Intake & Output 12/09/17 12/09/17 12/10/17 06:59 18:59 06:59 Intake Total 1493.0 / 1493.0 1213 / 1213 100 / 100 Output Total 325 / 325 1800 / 1800 Balance 1168.0 / 1168.0 -587 / -587 100 / 100 Weight 68 kg Intake: IV 835.0 / 835.0 518 / 518 100 / 100 Versed Inj 50 mg In 50 ml @ 2 50 / 50 18 / 18 MG/HR 2 mls/hr IV.CONT TITRATE PRN Rx#:[id number] D10W Inj 1,000 ML @ 30 mls/hr 500 / 500 IV.SIG .Q24H [facility] Rx#:[id number] INVanz Inj 1,000 MG In NS Inj 100 / 100 100 ML @ 100 mls/hr IV.SIG Q24H [facility] Rx#:[id number] Sodium Phosphate Inj 30 MMOL In 260 / 260 NS Inj 250 ML @ 40 mls/hr IV. SIG ONCE ONE Rx#:[id number] Vancomycin Inj 1,250 MG In NS 525.0 / 525.0 Inj 250 ML @ 250 mls/hr IV.SIG Q12H [facility] Rx#:[id number] Tube Feeding 658 / 658 575 / 575 Water Bolus Amount 120 / 120 Output: Urine 325 / 325 1800 / 1800 Other: Date of Last Bowel Movement 12/09/17 12/08/17 # Bowel Movements 1 Result Diagrams: 12/09/17 04:23 12/09/17 04:23 Objective Remarks: GENERAL: Patient is 57 yo AA male intubated and sedated SKIN: Warm and dry. HEAD: Normocephalic. EYES: No scleral icterus. No injection or drainage. NECK: Supple, trachea midline. No JVD or lymphadenopathy. CARDIOVASCULAR: Regular rate and rhythm without murmurs, gallops, or rubs. RESPIRATORY: Breath sounds equal bilaterally. No accessory muscle use. GASTROINTESTINAL: Abdomen soft, non-tender, nondistended. MUSCULOSKELETAL: Trace bilateral lower extremity edema. Neuro: Sedated. Inconsistent Assessment and Plan - Assessment and Plan Plan: Neurologic: Acute toxic encephalopathy Acute cocaine intoxication Acute metabolic encephalopathy secondary to shock Right superior cerebellar CVA On midazolam drip for sedation while intubated Morphine sulfate 4 mg IV every 2 hours as needed pain Daily sedation vacation. Monitor neuro status. MRI brain 12/05 revealed restricted diffusion in the medial right superior cerebellum. Chronic periventricular and subcortical white matter signal change case of chronic microvascular ischemia. EEG 12/05 revealed moderate encephalopathy. No epileptic activity Respiratory: Acute hypoxic and hypercarbic respiratory failure Acute severe pulmonary edema Continue with vent support keep sats >92% On PRVC RR 16, TV550, IT:1.1, PEEP:5, FIO2: 30% Bronchodilators with albuterol/ipratropium aerosols every 6 hours with albuterol aerosols every 2 hours as needed for dyspnea. SBT daily as mari aelena. Patient is not tolerating CPAP trials- gets apneic, tachycardic and tachypneic. CXR 12/09 ordered Palliative care spoke to family and now leaning toward trach/PEG. Spoke to patient's sister Kaylie and mother 12/06 updated her on patient's condition and she states decision on trach/PEG was withdrawal on Saturday Cardiovascular: s/p Cardiogenic shock Acute severe systolic congestive heart failure exacerbation Acute type II non-ST elevation myocardial infarction secondary to demand ischemia known prior EF 20% (09/2017), Echo 11/27: EF <20%, mod- severe MR, PAP 53.9mmHg likely secondary to chronic cocaine use superimposed on cardiomyopathy. Monitor HR and BP keep MAP>65mmHg. on carvedilol 3.125mg BID. And lisinopril 5mg daily On 12.5 mg twice daily carvedilol at home. Holding amlodipine 10 mg daily/ home medication Discontinued 12/07 milrinone drip at 0.25 mcg/kg/min. Lactic acid resolved 1.1 on 11/20 Renal: Acute kidney injury- resolved RACHID positive. Positive RACHID screen pending. Low complements noted. Monitor renal function, I/O's, electrolytes replacement per protocol. Vascath d/c 11/26. Continue furosemide 40mg IV daily Renal has followed FEN/GI: Hep C reactive viral load 351, 000 international units per milliliter Hypoalbuminemia Possible autoimmune hepatitis Severe acute protein calorie malnutrition On tube feeds- Glucerna 1.5 with goal rate 55ml/hr Lansoprazole for GI prophylaxis. Docusate sodium/senna 1 tablet twice daily for bowel regimen Check hepatitis c genotype Heme/ID: VAP -Enterobacter/Klebsiella E. coli UTI HIV - CD4 60 new diagnosis Normocytic anemia Daily CBC , HIV reactive on screening test. CD4 count: 60 Meropenem switched to ertapenem by ID, added vancomycin 12/07 monitor for signs of infections ( Fever, WBC). Check UA urine cxs: ESBL E.coli 11/27 Sputum cx: Enterobacter, Kleb BC 11/29: NGTD 12/06 - BC -gram-positive cocci from line and peripherally. Negative blood cultures 12/07 ID is following Endocrine: SSI with accuchecks Prophylaxis: GI Prophylaxis Lansoprazole DVT Prophylaxis Subcu heparin Lines: 11/19 right subclavian 7 [place] triple-lumen catheter discontinued 12/07 11/19 right IJ 14 [place] 20 cm dialysis catheter d/c 11/26 Prognosis appears poor. Palliative care following to assist with deciding goals of therapy. Spoke to patient's sister Kaylie today updated her on patient's condition and she states that the family will make final decision on trach/PEG vs transition to comfort care on the 12/09
[2017-12-09] MEDS: Dextrose 10% in Water Inj 1,000 ML IV.SIG SCH (22:08)
[2017-12-10] MEDS: Insulin NovoLIN Regular Correctional Sugar Inj SQ SCH ×4 (01:25→18:00)
[2017-12-10 02:50] LABS: Baso # (Auto) 0.1 th/mm3 (0.0-0.2); Baso % (Auto) 0.9 % (0.0-2.0); Eos # (Auto) 0.4 th/mm3 (0.0-0.4); Eos % (Auto) 5.6 % (0.0-4.0); Hematocrit 37.5 % (39.0-51.0); Hemoglobin 12.5 gm/dL (13.0-17.0); Lymph % (Auto) 14.9 % (9.0-44.0); Mean Corpuscular HGB Conc 33.4 % (32.0-36.0); Mean Corpuscular Hemoglobin 29.4 pg (27.0-34.0); Mean Corpuscular Volume 88.1 fL (80.0-100.0); Mean Platelet Volume 9.9 fL (7.0-11.0); Mono % (Auto) 14.5 % (0.0-8.0); Neut # (Auto) 4.5 th/mm3 (1.8-7.7); Neut % (Auto) 64.1 % (16.0-70.0); Platelet Count 210 th/mm3 (150-450); Red Blood Count 4.25 mil/mm3 (4.50-5.90); Red Cell Distribution Width 14.6 % (11.6-17.2)
[2017-12-10] MEDS: Dextrose 10% in Water Inj 1,000 ML IV.SIG SCH ×2 (04:53→20:00)
[2017-12-10] MEDS: Midazolam 50 MG/50 ML Inj 50 MG/50 ML BAG IV.CONT PRN ×3 (04:54→20:02)
[2017-12-10] MEDS: Heparin - SQ 10,000 UNITS/ML Vial SQ SCH ×3 (05:07→21:18)
[2017-12-10 07:21] LABS: Baso % (Auto) 0.8 % (0.0-2.0); Eos # (Auto) 0.3 th/mm3 (0.0-0.4); Eos % (Auto) 6.3 % (0.0-4.0); Hematocrit 38.8 % (39.0-51.0); Hemoglobin 12.6 gm/dL (13.0-17.0); Lymph # (Auto) 0.5 th/mm3 (1.0-4.8); Lymph % (Auto) 12.1 % (9.0-44.0); Mean Corpuscular HGB Conc 32.5 % (32.0-36.0); Mean Corpuscular Hemoglobin 29.3 pg (27.0-34.0); Mean Corpuscular Volume 90.3 fL (80.0-100.0); Mean Platelet Volume 9.4 fL (7.0-11.0); Mono # (Auto) 0.4 th/mm3 (0.0-0.9); Mono % (Auto) 9.5 % (0.0-8.0); Neut % (Auto) 71.3 % (16.0-70.0); Platelet Count 206 th/mm3 (150-450); Red Blood Count 4.29 mil/mm3 (4.50-5.90); Red Cell Distribution Width 14.5 % (11.6-17.2); White Blood Count 4.2 th/mm3 (4.0-11.0)
[2017-12-10 07:40] LABS: Alanine Aminotransferase 42 U/L (12-78); Albumin 1.6 g/dL (3.4-5.0); Anion Gap 10 meq/L (5-15); Aspartate Aminotransferase 60 U/L (15-37); Blood Urea Nitrogen 27 mg/dL (7-18); Calcium 7.8 mg/dL (8.5-10.1); Carbon Dioxide 28.5 meq/L (21.0-32.0); Chloride 100 meq/L (98-107); Glomerular Filtration Rate Greater Than 89 mL/min (>89); Glucose,Random 104 mg/dL (74-106); Potassium 4.4 meq/L (3.5-5.1); Sodium 138 meq/L (136-145)
[2017-12-10 07:43] LABS: Alkaline Phosphatase 76 U/L (45-117); Total Protein 7.1 g/dL (6.4-8.2)
[2017-12-10] MEDS: Fluconazole 100 MG Tablet PO SCH (08:07)
[2017-12-10] MEDS: Hypromellose 0.3% Opth Gel 10 GM Bottle EACH EYE SCH ×2 (08:07→21:18)
[2017-12-10] MEDS: Senna/Docusate Sodium 8.6/50 MG Tablet PO SCH ×2 (08:08→21:18)
[2017-12-10] MEDS: Lisinopril 5 MG Tablet PO SCH (08:08)
--- NOTE | 2017-12-10 12:43 | P.PNPAL ---
Reason for Visit Reason for visit: a. To assist with evaluation and management of symptoms including: Altered mental status, edema b. To assist medical decision maker(s) with: better understanding of current medical conditions; weighing benefits/burdens of medical treatment options; making medical treatment decisions. Subjective Subjective/Interval History: Follow up medically necessary for symptom management of altered mental status and edema and further clarification of goals of medical treatment. He is day 21 status post intubation. Family meeting is scheduled today further decision-making between trach/PEG and withdrawal of care. Patient remains altered and agitated with any lightening of sedation, moving non-purposefully, not to command. He continues to require restraints secondary to disruption of invasive lines. He is unable to quantify or qualify his pain due to altered mental status. Urine output has improved and he is not receiving dialysis at this time. He does continue to receive Lasix 40 mg IV daily but remains with bilateral upper extremity edema and trace lower extremity edema. . Family/Friend Interactions: Spoke with patient's mother, Angelina, and sister Kaylie who initially stated they wished to proceed with tracheostomy and PEG placement until family members could be assembled for withdrawal. The procedures were explained in anticipatory guidance given. Once understanding the procedures, the mother decided that proceeding with tracheostomy and PEG placement to extend patient's life would only add more discomfort and risk with no discernible benefit and at that time determined that they wished to proceed with withdrawal of life support , but asked that it be done on Saturday when all family available could be assembled. This was discussed with Dr. Gold who agreed to continue current intubated status pending withdrawal 12/14 at a time to be chosen by the family. Consents were signed by the mother and placed on the chart. Physician signatures pending. Consent on chart for their review. . Advance Directives Living Will: Never completed Health Care Surrogate: Never completed Durable Power of System Safety Manager: Never completed Health Care Surrogate Name and Number: HCP: Mother-Angelina Medina [phone] Objective Vital Signs: Vital Signs 12/09/17 13:00 12/09/17 13:54 12/09/17 14:00 Temperature Pulse Rate 76 90 Respiratory Rate 16 16 16 Blood Pressure 113/75 120/86 Pulse Oximetry 100 100 100 12/09/17 15:00 12/09/17 15:49 12/09/17 16:00 Temperature 97.6 F Pulse Rate 69 76 78 Respiratory Rate 16 16 16 Blood Pressure 98/67 L 116/79 Pulse Oximetry 100 100 100 12/09/17 17:00 12/09/17 18:00 12/09/17 19:00 Temperature Pulse Rate 70 83 77 Respiratory Rate 16 16 16 Blood Pressure 102/78 124/85 115/79 Pulse Oximetry 100 100 100 12/09/17 20:00 12/09/17 20:20 12/09/17 21:00 Temperature 97.7 F Pulse Rate 84 76 Respiratory Rate 16 16 16 Blood Pressure 117/82 105/68 Pulse Oximetry 100 100 100 12/09/17 22:00 12/09/17 23:00 12/10/17 00:00 Temperature Pulse Rate 99 H 86 100 H Respiratory Rate 16 16 16 Blood Pressure 123/86 115/78 122/88 Pulse Oximetry 100 100 100 12/10/17 00:16 12/10/17 01:00 12/10/17 02:00 Temperature Pulse Rate 100 H 101 H Respiratory Rate 16 16 16 Blood Pressure 120/82 115/77 Pulse Oximetry 100 100 100 12/10/17 02:49 12/10/17 03:00 12/10/17 04:00 Temperature Pulse Rate 108 H 104 H Respiratory Rate 16 16 11 L Blood Pressure 120/81 120/78 Pulse Oximetry 100 100 100 12/10/17 04:22 12/10/17 08:00 12/10/17 08:35 Temperature 98.8 F Pulse Rate 94 H Respiratory Rate 16 16 16 Blood Pressure 112/79 Pulse Oximetry 99 95 99 12/10/17 11:50 Temperature Pulse Rate Respiratory Rate 16 Blood Pressure Pulse Oximetry 100 Intake & Output 12/09/17 12/10/17 12/10/17 18:59 06:59 18:59 Intake Total 1213 / 1213 2211.0 / 2211.0 50 / 50 Output Total 1800 / 1800 450 / 450 Balance -587 / -587 1761.0 / 1761.0 50 / 50 Weight 146 lb 9.718 oz Intake: IV 518 / 518 1548.0 / 1548.0 50 / 50 Versed Inj 50 mg In 50 ml @ 2 68 / 68 50 / 50 MG/HR 2 mls/hr IV.CONT TITRATE PRN Rx#:[id number] D10W Inj 1,000 ML @ 30 mls/hr 500 / 500 500 / 500 IV.SIG .Q24H RUDDY Rx#:[id number] INVanz Inj 1,000 MG In NS Inj 100 / 100 100 ML @ 100 mls/hr IV.SIG Q24H RUDDY Rx#:[id number] Vancomycin Inj 1,250 MG In NS 262.5 / 262.5 Inj 250 ML @ 250 mls/hr IV.SIG Q12H RUDDY Rx#:[id number] Tube Feeding 575 / 575 613 / 613 Tube Irrigant 50 / 50 Water Bolus Amount 120 / 120 Output: Urine 1800 / 1800 Urine Amount (Catheter) 450 / 450 Condom 450 / 450 Other: # Incontinent Voids 1 Date of Last Bowel Movement 12/08/17 12/09/17 12/09/17 # Bowel Movements 1 Physical Exam: CONSTITUTIONAL/GENERAL: This is an adequately nourished patient, intubated, sedated, in no apparent distress. TUBES/LINES/DRAINS: Right arm PIV x2, ETT, Condom catheter,OGT, . SKIN: No jaundice, rashes, or lesions. No wounds seen anteriorly. Normothermic. HEAD: Atraumatic. Normocephalic. EYES: PERRLA. No scleral icterus. No injection or drainage. Fundi not examined. ENT: Nose without bleeding or purulent drainage. Orally intubated. NECK: Trachea midline. Supple, nontender. CARDIOVASCULAR: S1, S2. Irregular rhythm, controlled rate without gallops, or rubs. Soft 2/6 systolic ejection murmur. No JVD. Pedal pulses+ve RESPIRATORY/CHEST: Symmetric, unlabored respirations. Scattered rhonchi. GASTROINTESTINAL: Abdomen soft, nondistended. Intermittent BS. OGT. GENITOURINARY: Without palpable bladder distension. Condom catheter MUSCULOSKELETAL: Extremities without clubbing or cyanosis, trace edema to BLE, 2 + to BUE. No mottling or clubbing. NEUROLOGICAL: Intubated, sedated. On Midazolam. Withdraws with all 4 extremities PSYCHIATRIC: Unable to assess. Currently sedated and calm. . Diagnostic Tests Laboratory: Laboratory Results - last 72 hr 12/05/17 12/05/17 12/07/17 11:15 13:11 17:29 WBC RBC Hgb Hct MCV MCH MCHC RDW Plt Count MPV Neut % (Auto) Lymph % (Auto) Merrick % (Auto) Eos % (Auto) Baso % (Auto) Neut # (Auto) Lymph # (Auto) Merrick # (Auto) Eos # (Auto) Baso # (Auto) WBC Differential Differential Comment Hematology Comments Sodium Potassium Chloride Carbon Dioxide Anion Gap BUN Creatinine Estimated GFR POC Glucose 120 H Random Glucose Calcium Phosphorus Magnesium Total Bilirubin AST ALT Alkaline Phosphatase Total Protein Albumin Vancomycin Trough Rheumatoid Factor Less than 14 Anti-Mitochondrial Titr ND Anti-Mitochondrial Ab Negative Actin IgG Antibody 40 H HCV RNA (PCR) IUs/ml 205886 H HCV RNA PCR log IUs/ml 5.55 H 12/08/17 12/08/17 12/08/17 00:20 04:11 04:11 WBC 4.3 RBC 4.25 L Hgb 12.6 L Hct 38.5 L MCV 90.6 MCH 29.7 MCHC 32.7 RDW 14.8 Plt Count 222 MPV 9.8 Neut % (Auto) 73.7 H Lymph % (Auto) 12.7 Merrick % (Auto) 7.3 Eos % (Auto) 5.8 H Baso % (Auto) 0.5 Neut # (Auto) 3.2 Lymph # (Auto) 0.5 L Merrick # (Auto) 0.3 Eos # (Auto) 0.2 Baso # (Auto) 0.0 WBC Differential . Differential Comment Auto diff final Hematology Comments Sodium 136 Potassium 4.5 Chloride 100 Carbon Dioxide 28.4 Anion Gap 8 BUN 24 H Creatinine 0.68 Estimated GFR Greater than 89 POC Glucose 116 H Random Glucose 99 Calcium 8.1 L Phosphorus 2.4 L Magnesium 2.2 Total Bilirubin 0.5 AST 56 H ALT 38 Alkaline Phosphatase 76 Total Protein 7.5 Albumin 1.8 L Vancomycin Trough Rheumatoid Factor Anti-Mitochondrial Titr Anti-Mitochondrial Ab Actin IgG Antibody HCV RNA (PCR) IUs/ml HCV RNA PCR log IUs/ml 12/08/17 12/08/17 12/08/17 05:07 10:56 17:33 WBC RBC Hgb Hct MCV MCH MCHC RDW Plt Count MPV Neut % (Auto) Lymph % (Auto) Merrick % (Auto) Eos % (Auto) Baso % (Auto) Neut # (Auto) Lymph # (Auto) Merrick # (Auto) Eos # (Auto) Baso # (Auto) WBC Differential Differential Comment Hematology Comments Sodium Potassium Chloride Carbon Dioxide Anion Gap BUN Creatinine Estimated GFR POC Glucose 122 H 118 H 135 H Random Glucose Calcium Phosphorus Magnesium Total Bilirubin AST ALT Alkaline Phosphatase Total Protein Albumin Vancomycin Trough Rheumatoid Factor Anti-Mitochondrial Titr Anti-Mitochondrial Ab Actin IgG Antibody HCV RNA (PCR) IUs/ml HCV RNA PCR log IUs/ml 12/08/17 12/09/17 12/09/17 23:31 04:23 04:23 WBC 5.8 RBC 4.71 Hgb 13.7 Hct 43.2 MCV 91.6 MCH 29.1 MCHC 31.7 L RDW 14.8 Plt Count 189 MPV 9.1 Neut % (Auto) 74.4 H Lymph % (Auto) 13.4 Merrick % (Auto) 9.3 H Eos % (Auto) 2.4 Baso % (Auto) 0.5 Neut # (Auto) 4.3 Lymph # (Auto) 0.8 L Merrick # (Auto) 0.5 Eos # (Auto) 0.1 Baso # (Auto) 0.0 WBC Differential . Differential Comment Auto diff final Hematology Comments Sodium 135 L Potassium 4.7 Chloride 100 Carbon Dioxide 28.9 Anion Gap 6 BUN 26 H Creatinine 0.98 Estimated GFR Greater than 89 POC Glucose 123 H Random Glucose 93 Calcium 8.1 L Phosphorus 3.7 D Magnesium 2.2 Total Bilirubin 0.7 AST 67 H ALT 39 Alkaline Phosphatase 70 Total Protein 7.7 Albumin 1.8 L Vancomycin Trough Rheumatoid Factor Anti-Mitochondrial Titr Anti-Mitochondrial Ab Actin IgG Antibody HCV RNA (PCR) IUs/ml HCV RNA PCR log IUs/ml 12/09/17 12/09/17 12/09/17 13:16 18:25 18:35 WBC RBC Hgb Hct MCV MCH MCHC RDW Plt Count MPV Neut % (Auto) Lymph % (Auto) Merrick % (Auto) Eos % (Auto) Baso % (Auto) Neut # (Auto) Lymph # (Auto) Merrick # (Auto) Eos # (Auto) Baso # (Auto) WBC Differential Differential Comment Hematology Comments Sodium Potassium Chloride Carbon Dioxide Anion Gap BUN Creatinine Estimated GFR POC Glucose 116 H 114 H Random Glucose Calcium Phosphorus Magnesium Total Bilirubin AST ALT Alkaline Phosphatase Total Protein Albumin Vancomycin Trough 24.8 H Rheumatoid Factor Anti-Mitochondrial Titr Anti-Mitochondrial Ab Actin IgG Antibody HCV RNA (PCR) IUs/ml HCV RNA PCR log IUs/ml 12/10/17 12/10/17 12/10/17 00:16 01:41 05:16 WBC 7.0 RBC 4.25 L Hgb 12.5 L Hct 37.5 L MCV 88.1 D MCH 29.4 MCHC 33.4 RDW 14.6 Plt Count 210 MPV 9.9 Neut % (Auto) 64.1 Lymph % (Auto) 14.9 Merrick % (Auto) 14.5 H Eos % (Auto) 5.6 H Baso % (Auto) 0.9 Neut # (Auto) 4.5 Lymph # (Auto) 1.0 Merrick # (Auto) 1.0 H Eos # (Auto) 0.4 Baso # (Auto) 0.1 WBC Differential . Differential Comment Auto diff final Hematology Comments Sodium Potassium Chloride Carbon Dioxide Anion Gap BUN Creatinine Estimated GFR POC Glucose 110 109 Random Glucose Calcium Phosphorus Magnesium Total Bilirubin AST ALT Alkaline Phosphatase Total Protein Albumin Vancomycin Trough Rheumatoid Factor Anti-Mitochondrial Titr Anti-Mitochondrial Ab Actin IgG Antibody HCV RNA (PCR) IUs/ml HCV RNA PCR log IUs/ml 12/10/17 12/10/17 12/10/17 06:54 06:54 11:40 WBC 4.2 RBC 4.29 L Hgb 12.6 L Hct 38.8 L MCV 90.3 MCH 29.3 MCHC 32.5 RDW 14.5 Plt Count 206 MPV 9.4 Neut % (Auto) 71.3 H Lymph % (Auto) 12.1 Merrick % (Auto) 9.5 H Eos % (Auto) 6.3 H Baso % (Auto) 0.8 Neut # (Auto) 3.0 Lymph # (Auto) 0.5 L Merrick # (Auto) 0.4 Eos # (Auto) 0.3 Baso # (Auto) 0.0 WBC Differential . Differential Comment Auto diff final Hematology Comments Sodium 138 Potassium 4.4 Chloride 100 Carbon Dioxide 28.5 Anion Gap 10 BUN 27 H Creatinine 0.79 Estimated GFR Greater than 89 POC Glucose 117 H Random Glucose 104 Calcium 7.8 L Phosphorus Magnesium Total Bilirubin 0.5 AST 60 H ALT 42 Alkaline Phosphatase 76 Total Protein 7.1 D Albumin 1.6 L Vancomycin Trough Rheumatoid Factor Anti-Mitochondrial Titr Anti-Mitochondrial Ab Actin IgG Antibody HCV RNA (PCR) IUs/ml HCV RNA PCR log IUs/ml Result Diagrams: 12/10/17 06:54 12/10/17 06:54 Microbiology: Microbiology 12/06/17 13:03 Aerobic Blood Culture - Preliminary Blood - Peripheral No growth in 4 days Anaerobic Blood Culture - Final Staphylococcus epidermidis Staphylococcus coag negative 12/08/17 12:20 Aerobic Blood Culture - Preliminary Blood - Peripheral No growth in 2 days Anaerobic Blood Culture - Preliminary No growth in 2 days 12/08/17 12:10 Aerobic Blood Culture - Preliminary Blood - Peripheral No growth in 2 days Anaerobic Blood Culture - Preliminary No growth in 2 days 12/07/17 19:35 Aerobic Blood Culture - Preliminary Blood - Peripheral No growth in 3 days Anaerobic Blood Culture - Preliminary No growth in 3 days 12/07/17 19:30 Aerobic Blood Culture - Preliminary Blood - Peripheral No growth in 3 days Anaerobic Blood Culture - Preliminary No growth in 3 days 12/06/17 13:09 Aerobic Blood Culture - Final Blood - Line Staph. cohnii-urealyticum Staphylococcus coag negative Anaerobic Blood Culture - Preliminary No growth in 4 days Imaging: Abdomen/Pelvis CT 11/19/17 03:55 CONCLUSION: 1. Limited, suboptimal examination performed without intravenous or oral contrast. The study is degraded by motion artifact as well. 2. Abnormal bowel gas pattern with multiple small air-fluid levels. The bowel is suboptimally visualized and evaluated secondary to the lack of the intravenous and oral contrast as well as diffuse ascites. This may represent a gastroenteritis and/or ileus. Obstruction is less likely. 3. Diffuse ascites throughout the abdomen and pelvis. 4. Moderate size right effusion which is increased from the prior study. There is a new small left effusion. 5. Moderate cardiomegaly. 6. No definite gallstones identified. Chest X-Ray 11/19/17 03:55 CONCLUSION: 1. Mild hazy opacity is now noted in the right perihilar region concerning for mild pulmonary edema. 2. The heart size remains mildly enlarged and appearance. Head CT 11/19/17 03:55 CONCLUSION: 1. No acute hemorrhage or mass effect. 2. Mild motion and streak artifact. . Chest X-Ray 11/19/17 08:50 CONCLUSION: 1. ETT in good position. NGT beyond the GE junction. Central lines in good position. 2. Persistent atypical pulmonary edema pattern. Chest X-Ray 11/27/17 08:49 CONCLUSION: 1. Mild to moderate pulmonary vascular congestion. 2. Cardiomegaly. 3. Tiny bilateral pleural effusions. 4. Multiple tubes and lines are stable. Chest X-Ray 12/04/17 07:53 CONCLUSION: Significantly improved aeration. Endotracheal tube tip is a bit high Head MRI 12/05/17 00:00 CONCLUSION: 1. Edema with restricted diffusion in the medial right superior cerebellum. Imaging findings are characteristic of recent ischemia. 2. Chronic findings include generalized cerebral atrophy with moderate chronic periventricular and subcortical white matter signal change characteristic of chronic microvascular ischemia. The punctate area of signal change in the right centrum semiovale is suspected to represent white matter signal change but nonacute ischemia. Chest X-Ray 12/06/17 06:00 CONCLUSION: ET tube in high position at the thoracic inlet. NG tube in the distal esophagus. This should be advanced. Diffuse increased interstitial markings likely related to diffuse processes such as edema or diffuse infection. Chest X-Ray 12/08/17 06:00 CONCLUSION: Diffuse increased interstitial markings likely related to diffuse processes such as diffuse edema, infection, or ARDS. Further increased density at the bases related to consolidation, atelectasis and /or effusion. Chest X-Ray 12/09/17 06:00 CONCLUSION: Improving basilar consolidations in a radiographic pattern most suggestive of pulmonary edema. Procedures: 11/19/2017: Right radial arterial line placement 11/19/2017: Endotracheal intubation 11/19/2017: Right subclavian triple-lumen catheter placement 11/19/2017 right IJ dialysis catheter placement Dc`d 11/26/17 . 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 He was never and has no children. He was previously in the [employer]. Spiritual: Standards Analyst available. Legal: No living will or healthcare surrogate completed. Ethical issues impacting care: None noted. . Important Contacts: Mother: Angelina Medina healthcare proxy- Currently living with daughter, Kaylie Gama. Sister: Bryan Sharp Sister: Kamille Verdugo Brother: Segundo Verdugo Brother: Carter Chavez Sister: Kaylie Gama - , C [phone] . Prognosis: His prognosis is poor. He has end-stage heart disease now with an ejection fraction estimated to be less than 10% by governor assembler hydraulic echo. He has suffered a decline in heart function since June 2017 when echocardiogram showed a 50-55% ejection fraction at the time of mitral valve repair. Patient continued to abuse cocaine and possibly other substances and when seen in [place] September 2017 for chest pain was found to have non-ischemic cardiomyopathy with a normal coronary artery circulation and ejection fraction of 20-25%. Echocardiogram at this admission shows cardiogenic shock with an EF less than 10%. He is now requiring inotropic support with milrinone and now has acute kidney injury requiring dialysis for both hyperkalemia and fluid overload. At this time he remains on life support, intubated, but is at elevated risk for continued complications and decline. He would be hospice appropriate if goals were consistent. . Code Status: No Code DNR (Do not reintubate) Plan: PLAN: Legal decision maker: At this time the patient is not capacitated for decision making and it is not certain that he will ever regain capacity. He was never and has no children. His mother would be his proxy decision maker per [place] statutes. She had previously been reported to me as demented and unable to make these decisions, however, her daughter, Kaylie, who is her caregiver disputes that and states that her mother is perfectly capable of making these decisions and wishes to be her son's decision-maker. In conversation with Ms. Medina, herself, she appeared appropriate and capable of decision-making. Goals: Aggressive short of no code. Awaiting family to come in today as promised to make a decision whether to proceed with tracheostomy and PEG placement or compassionately withdrawing from life support. Family had discussion with Dr. Bello and have postponed decision making to 12/10/17 CODE STATUS: DO NOT RESUSCITATE SYMPTOMS: * Altered mental status: Presented with altered mental status, positive for cocaine, hypoglycemic, hyperkalemic, in fulminant heart failure, minimally able to make his needs known. Shortly thereafter he required intubation and sedation. Bedside critical care echo showed severe biventricular dysfunction with EF less than 10%, aortic valve opening only minimally due to low flow. HIV positive-CD4 count 60, end stage AIDS, ?AIDS related dementia. Patient continues to be agitated when sedation is weaned off. MRI brain on 12/05 revealed right sided superior cerebellar CVA with some edema. EEG on 12/05 revealed mild encephalopathy. No recommendations at this time * Edema: Edema is improving. Last hemodialysis on 11/23. Edema currently managed with Furosemide 40mg IVP daily. Trace edema to bilateral upper extremities. Elevate BLE. Monitor I &Os. If family decides to proceed with trach/PEG, rather than withdrawal, could consider upper extremity venous Doppler to evaluate for thrombosis if edema persists. Palliative care will continue to follow the patient during hospital course as condition evolves, to assist patient/decision-maker with understanding of their medical conditions, weighing benefits/burdens of treatment options, for clarification of goals of treatment. Additionally will assist with any symptoms of palliative concern. . Attestation Attestation: To help prompt me to consider important information that might be impacting today's encounter and assessment, information from prior notes written by myself or my colleagues may have been "brought forward" into today's note. My signature on this note, however, is an attestation that I personally performed the exam, history, and/or decision-making noted today, and, unless otherwise indicated, the interactions with patient, family, and staff as well as the review of records all occurred today. I also attest that the listed assessment and stated plan reflect my best clinical judgment today based on the combination of historical information, prior notes, and today's exam/ interactions. When time spent is documented, it refers only to time spent today by the signer, or if indicated, combined time spent today by collaborating physician/nurse practitioner. .
[2017-12-10] MEDS: Vancomycin Inj 1,000 MG in Sodium Chlor 0.9% Inj 250 ML IV.SIG SCH (17:56)
--- NOTE | 2017-12-10 18:06 | P.PNCC ---
Subjective Subjective Remarks/Hospital Course: 11/19: This is a 57yM with history of cardiomyopathy and an EF 20% who recently underwent mitral valve repair for severe MR. At that time, he had a preserved LVEF. However, he continued to use illicit cocaine, and on subsequent hospital admissions, his EF had fallen to 20%. He represents today with altered mental status, endorsing cocaine use. On further evaluation, he has a potassium of 7, Cr 2.4, AST/ALT 200/72, CK 1302, BNP 4307, co2 14. On my evaluation he is obtunded and agonally breathing, intermittently tachypneic. I performed bedside critical care echo which demonstrated a severe biventricular dysfunction and an EF < 10%. there was spontaneous echo contrast in the LV and the aortic valve appeared to open only minimally due to low-flow. Patient is grossly anasarcic with 3+ edema bilaterally up to the abdomen. he has JVD above the level of the mandible. I emergently intubated the patient (see separate procedure note for details). I emergently placed arterial, central lines, and dialysis catheter. potassium did not improve with medical therapy. we consulted nephrology for emergent HD. I also placed the patient on epinephrine drip for cardiogenic shock. due to the patient's mental status and clinical status, no additional information is available from him. ROS unobtainable. 11/20: Remains sedated, orally intubated on mechanical ventilation. Dialyzed this morning. Remains on pressors. 11/21: Remains sedated, orally intubated on mechanical ventilation. Hypothermic this morning. 11/22: Remains sedated, orally intubated on mechanical ventilation. Dialysis scheduled today 11/23: Remains sedated, orally intubated on mechanical ventilation. On milrinone. 11/24, 11/25: Remains sedated, orally intubated on mechanical ventilation. Tolerating tube feeds. 11/26: Sedated, orally intubated on mechanical ventilation. Tolerating tube feeds. 11/27 No events overnight. Sedated with Versed and intubated. On Milrinone drip. 11/29 Patient is sedated with Versed and intubated. Remains on Milrinone. T: 100.4 last night. Had 1 run (6 beats) asymptomatic Vtach overnight. Gets tachycardic and tachypneic with CPAP trials. 11/30 Patient remains sedated and intubated. T:100.4 last night. Not tolerating CPAP trials. 12/01 No events overnight. T:100.0 last night. Sedated with versed and on Milrinone. 12/02 Patient remains intubated and sedated. T;100.0 last night. On Versed and Diprivan infusion for sedation. Not tolerating CPAP trials. 12/03 No events overnight. Sedated and intubated. On Milrinone. Afebrile. 12/04 Patient remains sedated and intubated. Afebrile. 12/05: Afebrile. Start back on midazolam drip due to tachycardia/agitation. Heart rate currently in the 150s. Did not tolerate CPAP trial. Remains on milrinone at 0.25 mcg/kg/min 12/06: Resting comfortably in bed. Remains on midazolam drip at 6 mg an hour. MRI brain yesterday revealed right-sided superior cerebellar CVA with some edema. Awaiting family decision for tracheostomy and PEG tube placement 12/07: T-max 101.2. Currently on midazolam drip at 10 mg an hour due to "agitation and tachypnea" overnight. 2 runs of nonsustained V. tach. Magnesium potassium being replaced. Subjective 12/08: T-max 100.5. Currently on midazolam drip at 7 mg an hour. Phosphorus currently being replaced. Plan for discussion about trach/PEG versus withdrawal of care tomorrow with mother and daughter. 12/09: no improvements. remains very critically ill. unlikely to survive. palliative discussion today and family still discussion withdraw vs. aggressive measures. 12/10: no improvements. family deciding on when to withdraw care: need some family to travel from out-of-town to be with patient. Objective Vital Signs / I&O: Vital Signs 12/09/17 19:00 12/09/17 20:00 12/09/17 20:20 Temperature 36.5 C Pulse Rate 77 84 Respiratory Rate 16 16 16 Blood Pressure 115/79 117/82 Pulse Oximetry 100 100 100 12/09/17 21:00 12/09/17 22:00 12/09/17 23:00 Temperature Pulse Rate 76 99 H 86 Respiratory Rate 16 16 16 Blood Pressure 105/68 123/86 115/78 Pulse Oximetry 100 100 100 12/10/17 00:00 12/10/17 00:16 12/10/17 01:00 Temperature Pulse Rate 100 H 100 H Respiratory Rate 16 16 16 Blood Pressure 122/88 120/82 Pulse Oximetry 100 100 100 12/10/17 02:00 12/10/17 02:49 12/10/17 03:00 Temperature Pulse Rate 101 H 108 H Respiratory Rate 16 16 16 Blood Pressure 115/77 120/81 Pulse Oximetry 100 100 100 12/10/17 04:00 12/10/17 04:22 12/10/17 08:00 Temperature 37.1 C Pulse Rate 104 H 94 H Respiratory Rate 11 L 16 16 Blood Pressure 120/78 112/79 Pulse Oximetry 100 99 95 12/10/17 08:35 12/10/17 11:50 12/10/17 12:00 Temperature 36.9 C Pulse Rate 90 Respiratory Rate 16 16 16 Blood Pressure 100/68 Pulse Oximetry 99 100 99 12/10/17 16:52 Temperature Pulse Rate Respiratory Rate 19 Blood Pressure Pulse Oximetry 100 Intake & Output 12/09/17 12/10/17 12/10/17 18:59 06:59 18:59 Intake Total 1213 / 1213 2211.0 / 2211.0 50 / 50 Output Total 1800 / 1800 450 / 450 Balance -587 / -587 1761.0 / 1761.0 50 / 50 Weight 66.5 kg Intake: IV 518 / 518 1548.0 / 1548.0 50 / 50 Versed Inj 50 mg In 50 ml @ 2 18 / 18 68 / 68 50 / 50 MG/HR 2 mls/hr IV.CONT TITRATE PRN Rx#:[id number] D10W Inj 1,000 ML @ 30 mls/hr 500 / 500 500 / 500 IV.SIG .Q24H RUDDY Rx#:[id number] INVanz Inj 1,000 MG In NS Inj 100 / 100 100 ML @ 100 mls/hr IV.SIG Q24H RUDDY Rx#:[id number] Vancomycin Inj 1,250 MG In NS 262.5 / 262.5 Inj 250 ML @ 250 mls/hr IV.SIG Q12H RUDDY Rx#:[id number] Tube Feeding 575 / 575 613 / 613 Tube Irrigant 50 / 50 Water Bolus Amount 120 / 120 Output: Urine 1800 / 1800 Urine Amount (Catheter) 450 / 450 Condom 450 / 450 Other: # Incontinent Voids 1 Date of Last Bowel Movement 12/08/17 12/09/17 12/09/17 # Bowel Movements 1 Result Diagrams: 12/10/17 06:54 12/10/17 06:54 Objective Remarks: GENERAL: Patient is 57 yo AA male intubated and sedated SKIN: Warm and dry. HEAD: Normocephalic. EYES: No scleral icterus. No injection or drainage. NECK: Supple, trachea midline. No JVD or lymphadenopathy. CARDIOVASCULAR: Regular rate and rhythm without murmurs, gallops, or rubs. RESPIRATORY: Breath sounds equal bilaterally. No accessory muscle use. GASTROINTESTINAL: Abdomen soft, non-tender, nondistended. MUSCULOSKELETAL: Trace bilateral lower extremity edema. Neuro: Sedated. Inconsistent Assessment and Plan - Assessment and Plan Plan: Neurologic: Acute toxic encephalopathy Acute cocaine intoxication Acute metabolic encephalopathy secondary to shock Right superior cerebellar CVA On midazolam drip for sedation while intubated Morphine sulfate 4 mg IV every 2 hours as needed pain Daily sedation vacation. Monitor neuro status. MRI brain 12/05 revealed restricted diffusion in the medial right superior cerebellum. Chronic periventricular and subcortical white matter signal change case of chronic microvascular ischemia. EEG 12/05 revealed moderate encephalopathy. No epileptic activity Respiratory: Acute hypoxic and hypercarbic respiratory failure Acute severe pulmonary edema Continue with vent support keep sats >92% On PRVC RR 16, TV550, IT:1.1, PEEP:5, FIO2: 30% Bronchodilators with albuterol/ipratropium aerosols every 6 hours with albuterol aerosols every 2 hours as needed for dyspnea. SBT daily as maria elena. Patient is not tolerating CPAP trials- gets apneic, tachycardic and tachypneic. CXR 12/09 ordered Palliative care spoke to family and now leaning toward trach/PEG. Spoke to patient's sister Kaylie and mother 12/06 updated her on patient's condition and she states decision on trach/PEG was withdrawal on Saturday Cardiovascular: s/p Cardiogenic shock Acute severe systolic congestive heart failure exacerbation Acute type II non-ST elevation myocardial infarction secondary to demand ischemia known prior EF 20% (09/2017), Echo 11/27: EF <20%, mod- severe MR, PAP 53.9mmHg likely secondary to chronic cocaine use superimposed on cardiomyopathy. Monitor HR and BP keep MAP>65mmHg. on carvedilol 3.125mg BID. And lisinopril 5mg daily On 12.5 mg twice daily carvedilol at home. Holding amlodipine 10 mg daily/ home medication Discontinued 12/07 milrinone drip at 0.25 mcg/kg/min. Lactic acid resolved 1.1 on 11/20 Renal: Acute kidney injury- resolved RACHID positive. Positive RACHID screen pending. Low complements noted. Monitor renal function, I/O's, electrolytes replacement per protocol. Vascath d/c 11/26. Continue furosemide 40mg IV daily Renal has followed FEN/GI: Hep C reactive viral load 351, 000 international units per milliliter Hypoalbuminemia Possible autoimmune hepatitis Severe acute protein calorie malnutrition On tube feeds- Glucerna 1.5 with goal rate 55ml/hr Lansoprazole for GI prophylaxis. Docusate sodium/senna 1 tablet twice daily for bowel regimen Check hepatitis c genotype Heme/ID: VAP -Enterobacter/Klebsiella E. coli UTI HIV - CD4 60 new diagnosis Normocytic anemia Daily CBC , HIV reactive on screening test. CD4 count: 60 Meropenem switched to ertapenem by ID, added vancomycin 12/07 monitor for signs of infections ( Fever, WBC). Check UA urine cxs: ESBL E.coli 11/27 Sputum cx: Enterobacter, Kleb BC 11/29: NGTD 12/06 - BC -gram-positive cocci from line and peripherally. Negative blood cultures 12/07 ID is following Endocrine: SSI with accuchecks Prophylaxis: GI Prophylaxis Lansoprazole DVT Prophylaxis Subcu heparin Lines: 11/19 right subclavian 7 [place] triple-lumen catheter discontinued 12/07 11/19 right IJ 14 [place] 20 cm dialysis catheter d/c 11/26 Prognosis appears poor. Palliative care following to assist with deciding goals of therapy. Spoke to patient's sister Kaylie today updated her on patient's condition and she states that the family will make final decision on trach/PEG vs transition to comfort care on the 12/09
[2017-12-11] MEDS: Insulin NovoLIN Regular Correctional Sugar Inj SQ SCH ×2 (00:16→06:36)
[2017-12-11] MEDS: Heparin - SQ 10,000 UNITS/ML Vial SQ SCH ×3 (05:20→21:04)
[2017-12-11] MEDS: Vancomycin Inj 1,000 MG in Sodium Chlor 0.9% Inj 250 ML IV.SIG SCH ×2 (05:21→18:53)
[2017-12-11] MEDS: Midazolam 50 MG/50 ML Inj 50 MG/50 ML BAG IV.CONT PRN ×2 (06:05→18:54)
[2017-12-11 06:21] LABS: Baso % (Auto) 1.1 % (0.0-2.0); Eos # (Auto) 0.2 th/mm3 (0.0-0.4); Eos % (Auto) 4.6 % (0.0-4.0); Hematocrit 38.7 % (39.0-51.0); Hemoglobin 12.8 gm/dL (13.0-17.0); Lymph # (Auto) 0.6 th/mm3 (1.0-4.8); Lymph % (Auto) 14.6 % (9.0-44.0); Mean Corpuscular HGB Conc 32.9 % (32.0-36.0); Mean Corpuscular Hemoglobin 29.5 pg (27.0-34.0); Mean Corpuscular Volume 89.8 fL (80.0-100.0); Mean Platelet Volume 9.7 fL (7.0-11.0); Mono # (Auto) 0.4 th/mm3 (0.0-0.9); Mono % (Auto) 10.4 % (0.0-8.0); Neut % (Auto) 69.3 % (16.0-70.0); Platelet Count 198 th/mm3 (150-450); Red Blood Count 4.32 mil/mm3 (4.50-5.90); Red Cell Distribution Width 14.7 % (11.6-17.2); White Blood Count 4.3 th/mm3 (4.0-11.0)
[2017-12-11 06:48] LABS: Alanine Aminotransferase 45 U/L (12-78); Albumin 1.9 g/dL (3.4-5.0); Alkaline Phosphatase 71 U/L (45-117); Anion Gap 4 meq/L (5-15); Aspartate Aminotransferase 69 U/L (15-37); Blood Urea Nitrogen 31 mg/dL (7-18); Calcium 8.2 mg/dL (8.5-10.1); Carbon Dioxide 29.4 meq/L (21.0-32.0); Chloride 103 meq/L (98-107); Glomerular Filtration Rate Greater Than 89 mL/min (>89); Glucose,Random 96 mg/dL (74-106); Potassium 4.9 meq/L (3.5-5.1); Sodium 136 meq/L (136-145); Total Protein 7.7 g/dL (6.4-8.2)
[2017-12-11 07:53] LABS: Platelet Estimate Normal (Normal); Platelet Morphology Normal (Normal); RBC Morphology Normal (Normal)
--- NOTE | 2017-12-11 09:14 | P.PNCC ---
Subjective Subjective Remarks/Hospital Course: 11/19: This is a 57yM with history of cardiomyopathy and an EF 20% who recently underwent mitral valve repair for severe MR. At that time, he had a preserved LVEF. However, he continued to use illicit cocaine, and on subsequent hospital admissions, his EF had fallen to 20%. He represents today with altered mental status, endorsing cocaine use. On further evaluation, he has a potassium of 7, Cr 2.4, AST/ALT 200/72, CK 1302, BNP 4307, co2 14. On my evaluation he is obtunded and agonally breathing, intermittently tachypneic. I performed bedside critical care echo which demonstrated a severe biventricular dysfunction and an EF < 10%. there was spontaneous echo contrast in the LV and the aortic valve appeared to open only minimally due to low-flow. Patient is grossly anasarcic with 3+ edema bilaterally up to the abdomen. he has JVD above the level of the mandible. I emergently intubated the patient (see separate procedure note for details). I emergently placed arterial, central lines, and dialysis catheter. potassium did not improve with medical therapy. we consulted nephrology for emergent HD. I also placed the patient on epinephrine drip for cardiogenic shock. due to the patient's mental status and clinical status, no additional information is available from him. ROS unobtainable. 11/20: Remains sedated, orally intubated on mechanical ventilation. Dialyzed this morning. Remains on pressors. 11/21: Remains sedated, orally intubated on mechanical ventilation. Hypothermic this morning. 11/22: Remains sedated, orally intubated on mechanical ventilation. Dialysis scheduled today 11/23: Remains sedated, orally intubated on mechanical ventilation. On milrinone. 11/24, 11/25: Remains sedated, orally intubated on mechanical ventilation. Tolerating tube feeds. 11/26: Sedated, orally intubated on mechanical ventilation. Tolerating tube feeds. 11/27 No events overnight. Sedated with Versed and intubated. On Milrinone drip. 11/29 Patient is sedated with Versed and intubated. Remains on Milrinone. T: 100.4 last night. Had 1 run (6 beats) asymptomatic Vtach overnight. Gets tachycardic and tachypneic with CPAP trials. 11/30 Patient remains sedated and intubated. T:100.4 last night. Not tolerating CPAP trials. 12/01 No events overnight. T:100.0 last night. Sedated with versed and on Milrinone. 12/02 Patient remains intubated and sedated. T;100.0 last night. On Versed and Diprivan infusion for sedation. Not tolerating CPAP trials. 12/03 No events overnight. Sedated and intubated. On Milrinone. Afebrile. 12/04 Patient remains sedated and intubated. Afebrile. 12/05: Afebrile. Start back on midazolam drip due to tachycardia/agitation. Heart rate currently in the 150s. Did not tolerate CPAP trial. Remains on milrinone at 0.25 mcg/kg/min 12/06: Resting comfortably in bed. Remains on midazolam drip at 6 mg an hour. MRI brain yesterday revealed right-sided superior cerebellar CVA with some edema. Awaiting family decision for tracheostomy and PEG tube placement 12/07: T-max 101.2. Currently on midazolam drip at 10 mg an hour due to "agitation and tachypnea" overnight. 2 runs of nonsustained V. tach. Magnesium potassium being replaced. Subjective 12/08: T-max 100.5. Currently on midazolam drip at 7 mg an hour. Phosphorus currently being replaced. Plan for discussion about trach/PEG versus withdrawal of care tomorrow with mother and daughter. 12/09: no improvements. remains very critically ill. unlikely to survive. palliative discussion today and family still discussion withdraw vs. aggressive measures. 12/10: no improvements. family deciding on when to withdraw care: need some family to travel from out-of-town to be with patient. 12/11: no changes. plan for withdraw on saturday when family at bedside. until then, will need to mitigate the suffering we provide to the patient in the form of lab draws and medication administrations. Objective Vital Signs / I&O: Vital Signs 12/10/17 11:50 12/10/17 12:00 12/10/17 16:00 Temperature 36.9 C 37.1 C Pulse Rate 90 99 H Respiratory Rate 16 16 16 Blood Pressure 100/68 125/81 Pulse Oximetry 100 99 99 12/10/17 16:52 12/10/17 19:35 12/10/17 20:00 Temperature 36.9 C Pulse Rate 109 H Respiratory Rate 19 15 17 Blood Pressure 120/78 Pulse Oximetry 100 100 100 12/10/17 23:00 12/11/17 00:00 12/11/17 01:50 Temperature 37.1 C Pulse Rate 102 H Respiratory Rate 16 16 16 Blood Pressure 119/75 Pulse Oximetry 100 100 100 12/11/17 04:00 12/11/17 04:26 12/11/17 08:00 Temperature 37.1 C Pulse Rate 99 H Respiratory Rate 16 16 16 Blood Pressure 119/76 Pulse Oximetry 100 100 100 Intake & Output 12/10/17 12/11/17 12/11/17 18:59 06:59 18:59 Intake Total 1128 / 1128 1980 Output Total 1000 / 1000 450 / 450 Balance 128 / 128 1531 / 1531 Weight 64.5 kg Intake: IV 400 / 400 1350 / 1350 Versed Inj 50 mg In 50 ml @ 2 50 / 50 100 / 100 MG/HR 2 mls/hr IV.CONT TITRATE PRN Rx#:[id number] D10W Inj 1,000 ML @ 30 mls/hr 1000 / 1000 IV.SIG .Q24H RUDDY Rx#:[id number] INVanz Inj 1,000 MG In NS Inj 100 / 100 100 ML @ 100 mls/hr IV.SIG Q24H RUDDY Rx#:[id number] Vancomycin Inj 1,000 MG In NS 250 / 250 250 / 250 Inj 250 ML @ 250 mls/hr IV.SIG Q12H RUDDY Rx#:[id number] Tube Feeding 578 / 578 631 / 631 Tube Irrigant 50 / 50 Water Bolus Amount 100 / 100 Output: Urine Amount (Catheter) 1000 / 1000 450 / 450 Condom 1000 / 1000 450 / 450 Other: Date of Last Bowel Movement 12/09/17 12/09/17 # Bowel Movements 1 1 Result Diagrams: 12/11/17 04:35 12/11/17 04:35 Objective Remarks: GENERAL: Patient is 57 yo AA male intubated and sedated SKIN: Warm and dry. HEAD: Normocephalic. EYES: No scleral icterus. No injection or drainage. NECK: Supple, trachea midline. No JVD or lymphadenopathy. CARDIOVASCULAR: Regular rate and rhythm without murmurs, gallops, or rubs. RESPIRATORY: Breath sounds equal bilaterally. No accessory muscle use. GASTROINTESTINAL: Abdomen soft, non-tender, nondistended. MUSCULOSKELETAL: Trace bilateral lower extremity edema. Neuro: Sedated. Inconsistent Assessment and Plan - Assessment and Plan Plan: Neurologic: Acute toxic encephalopathy Acute cocaine intoxication Acute metabolic encephalopathy secondary to shock Right superior cerebellar CVA On midazolam drip for sedation while intubated Morphine sulfate 4 mg IV every 2 hours as needed pain Daily sedation vacation. Monitor neuro status. MRI brain 12/05 revealed restricted diffusion in the medial right superior cerebellum. Chronic periventricular and subcortical white matter signal change case of chronic microvascular ischemia. EEG 12/05 revealed moderate encephalopathy. No epileptic activity Respiratory: Acute hypoxic and hypercarbic respiratory failure Acute severe pulmonary edema Continue with vent support keep sats >92% Bronchodilators with albuterol/ipratropium aerosols every 6 hours with albuterol aerosols every 2 hours as needed for dyspnea. no SBT. Cardiovascular: s/p Cardiogenic shock Acute severe systolic congestive heart failure exacerbation Acute type II non-ST elevation myocardial infarction secondary to demand ischemia known prior EF 20% (09/2017), Echo 11/27: EF <20%, mod- severe MR, PAP 53.9mmHg likely secondary to chronic cocaine use superimposed on cardiomyopathy. Monitor HR and BP keep MAP>65mmHg. on carvedilol 3.125mg BID. And lisinopril 5mg daily On 12.5 mg twice daily carvedilol at home. Holding amlodipine 10 mg daily/ home medication Discontinued 12/07 milrinone drip at 0.25 mcg/kg/min. Lactic acid resolved 1.1 on 11/20 Renal: Acute kidney injury- resolved RACHID positive. Positive RACHID screen pending. Low complements noted. Monitor renal function, I/O's, electrolytes replacement per protocol. Vascath d/c 11/26. d/c furosemide. Renal has followed FEN/GI: Hep C reactive viral load 351, 000 international units per milliliter Hypoalbuminemia Possible autoimmune hepatitis Severe acute protein calorie malnutrition need to limit amount of volume given to patient given severe heart failure. also , questionable absorption and toleration of tube feeds at this point. abdomen more distended. will hold tube feeds for now and re-evaluate daily. Lansoprazole for GI prophylaxis. Docusate sodium/senna 1 tablet twice daily for bowel regimen Heme/ID: VAP -Enterobacter/Klebsiella E. coli UTI HIV - CD4 60 new diagnosis AIDS Normocytic anemia Daily CBC , HIV reactive on screening test. CD4 count: 60 Meropenem switched to ertapenem by ID, added vancomycin 12/07 monitor for signs of infections ( Fever, WBC). Check UA urine cxs: ESBL E.coli 11/27 Sputum cx: Enterobacter, Kleb BC 11/29: NGTD 12/06 - BC -gram-positive cocci from line and peripherally. Negative blood cultures 12/07 ID is following Endocrine: SSI with accuchecks Prophylaxis: GI Prophylaxis Lansoprazole DVT Prophylaxis Subcu heparin Lines: 11/19 right subclavian 7 [place] triple-lumen catheter discontinued 12/07 11/19 right IJ 14 [place] 20 cm dialysis catheter d/c 11/26 Prognosis appears poor. Palliative care following to assist with deciding goals of therapy. plan to withdraw care on saturday.
[2017-12-11] MEDS: Lisinopril 5 MG Tablet PO SCH (09:42)
[2017-12-11] MEDS: Senna/Docusate Sodium 8.6/50 MG Tablet PO SCH ×2 (09:42→20:55)
[2017-12-11] MEDS: Hypromellose 0.3% Opth Gel 10 GM Bottle EACH EYE SCH ×2 (09:42→21:05)
--- NOTE | 2017-12-11 11:56 | P.PNID ---
Subjective Remarks: is a 57-year-old male, brought into the hospital after he was noted by his friend to have some altered mental status. He was noted to have a blood sugar of 50 in the ambulance and he received some dextrose with some improvement in his mentation. He was able to give some history to the ED MD, and admitted that he has been using cocaine, but he has denied any chest pain, shortness of breath. In the emergency room he was found to have an elevated creatinine of 2.4, potassium of 7, elevated LFTs and CPK, as well as B natriuretic peptide of 4307. He was acidotic. His mental status continued to deteriorate in the emergency room, and he developed progressive obtundation, and required emergent intubation. He also became hypotensive, and he had an echo done at bedside with severe biventricular dysfunction with an EF of less than 10%. He was placed on epinephrine for cardiogenic shock. Since that time patient has remained intubated. He had emergent hemodialysis, and his electrolytes improved, as well as his creatinine. He is off HD now. He has moderate clear secretions in his ET. He has not been tolerating CPAP trials. Palliative medicine is also following patient, and he has DNR status. Patient has history of cardiomyopathy with a prior EF of 20%, and had undergone mitral valve repair back in June 2017. During his mitral valve surgery he had a preserved LV function, but post operative, he apparently continued to use cocaine and had subsequent hospital admission with documentation of a decrease in his EF to about 20%. On this admission patient had HIV testing, and the results came back positive. Over the last 2448 hrs., his temperature had increased. He had cultures done, and his sputum culture is growing Enterobacter and Klebsiella, and his urine culture has E. coli ESBL positive. Patient currently is afebrile. His hemodynamics are stable. Monitor shows sinus rhythm, with frequent PACs. His chest x-ray has evidence of pulmonary vascular congestion. Infectious disease consultation has been requested to assist with management of his multiple infections. Notes reviewed D/W RHYS diaz Vent dependent Has 2 BC with Coag Neg Staph On Vanco now UO ok. Has a condom cath. CD4 count 60. ESBL E.coli in the urine. Sputum with Enterobacter and Kleb Family looking at withdrawal this weekend, waitingfor some family members Antibiotics: Ertapenem IV Vanco IV Diflucan Lines: PIV Past Medical History: COPD (chronic obstructive pulmonary disease) Diabetes Gout Non-ischemic cardiomyopathy CHF (congestive heart failure) Cocaine use Hypertension H/O mitral valve repair Hep C HIV Allergies/Adverse Reactions: Allergies No Known Allergies Allergy (Unverified 11/19/17 04:45) Objective Vital Signs 12/10/17 12:00 12/10/17 16:00 12/10/17 16:52 Temperature 98.5 F 98.8 F Pulse Rate 90 99 H Respiratory Rate 16 16 19 Blood Pressure 100/68 125/81 Pulse Oximetry 99 99 100 12/10/17 19:35 12/10/17 20:00 12/10/17 23:00 Temperature 98.5 F Pulse Rate 109 H Respiratory Rate 15 17 16 Blood Pressure 120/78 Pulse Oximetry 100 100 100 12/11/17 00:00 12/11/17 01:50 12/11/17 04:00 Temperature 98.8 F 98.7 F Pulse Rate 102 H 99 H Respiratory Rate 16 16 16 Blood Pressure 119/75 119/76 Pulse Oximetry 100 100 100 12/11/17 04:26 12/11/17 07:00 12/11/17 08:00 Temperature 98.7 F Pulse Rate 101 H 108 H Respiratory Rate 16 16 14 Blood Pressure 116/77 113/78 Pulse Oximetry 100 100 100 12/11/17 09:00 12/11/17 10:00 12/11/17 11:00 Temperature Pulse Rate 108 H 104 H 110 H Respiratory Rate 16 16 16 Blood Pressure 119/77 119/76 121/88 Pulse Oximetry 100 100 100 12/11/17 11:43 Temperature Pulse Rate Respiratory Rate 16 Blood Pressure Pulse Oximetry 98 Intake & Output 12/10/17 12/11/17 12/11/17 18:59 06:59 18:59 Intake Total 1128 / 1128 1980 Output Total 1000 / 1000 450 / 450 Balance 128 / 128 1531 / 1531 Weight 64.5 kg Intake: IV 400 / 400 1350 / 1350 Versed Inj 50 mg In 50 ml @ 2 50 / 50 100 / 100 MG/HR 2 mls/hr IV.CONT TITRATE PRN Rx#:[id number] Inj 1,000 ML @ 30 mls/hr 1000 / 1000 IV.SIG .Q24H [facility] Rx#:[id number] INVanz Inj 1,000 MG In NS Inj 100 / 100 100 ML @ 100 mls/hr IV.SIG Q24H [facility] Rx#:[id number] Vancomycin Inj 1,000 MG In NS 250 / 250 250 / 250 Inj 250 ML @ 250 mls/hr IV.SIG Q12H [facility] Rx#:[id number] Tube Feeding 578 / 578 631 / 631 Tube Irrigant 50 / 50 Water Bolus Amount 100 / 100 Output: Urine Amount (Catheter) 1000 / 1000 450 / 450 Condom 1000 / 1000 450 / 450 Other: Date of Last Bowel Movement 12/09/17 12/09/17 12/11/17 # Bowel Movements 1 1 12/08/17 12:20 Blood - Peripheral Aerobic Blood Culture - Preliminary No growth in 3 days 12/08/17 12:20 Blood - Peripheral Anaerobic Blood Culture - Preliminary No growth in 3 days 12/08/17 12:10 Blood - Peripheral Aerobic Blood Culture - Preliminary No growth in 3 days 12/08/17 12:10 Blood - Peripheral Anaerobic Blood Culture - Preliminary No growth in 3 days 12/07/17 19:35 Blood - Peripheral Aerobic Blood Culture - Preliminary No growth in 4 days 12/07/17 19:35 Blood - Peripheral Anaerobic Blood Culture - Preliminary No growth in 4 days 12/07/17 19:30 Blood - Peripheral Aerobic Blood Culture - Preliminary No growth in 4 days 12/07/17 19:30 Blood - Peripheral Anaerobic Blood Culture - Preliminary No growth in 4 days 12/06/17 13:03 Blood - Peripheral Aerobic Blood Culture - Final No growth in 5 days 12/06/17 13:03 Blood - Peripheral Anaerobic Blood Culture - Final Staphylococcus epidermidis Staphylococcus coag negative 12/06/17 13:09 Blood - Line Aerobic Blood Culture - Final Staph. cohnii-urealyticum Staphylococcus coag negative 12/06/17 13:09 Blood - Line Anaerobic Blood Culture - Final No growth in 5 days Lab - Hematology Results 12/10/17 12/10/17 12/11/17 01:41 06:54 04:35 WBC 7.0 4.2 4.3 RBC 4.25 L 4.29 L 4.32 L Hgb 12.5 L 12.6 L 12.8 L Hct 37.5 L 38.8 L 38.7 L MCV 88.1 D 90.3 89.8 MCH 29.4 29.3 29.5 MCHC 33.4 32.5 32.9 RDW 14.6 14.5 14.7 Plt Count 210 206 198 MPV 9.9 9.4 9.7 Prelim Diff (Auto) Slide review pending Neut % (Auto) 64.1 71.3 H 69.3 Lymph % (Auto) 14.9 12.1 14.6 [place] % (Auto) 14.5 H 9.5 H 10.4 H Eos % (Auto) 5.6 H 6.3 H 4.6 H Baso % (Auto) 0.9 0.8 1.1 Neut # (Auto) 4.5 3.0 3.0 Lymph # (Auto) 1.0 0.5 L 0.6 L [place] # (Auto) 1.0 H 0.4 0.4 Eos # (Auto) 0.4 0.3 0.2 Baso # (Auto) 0.1 0.0 0.0 WBC Differential . . . Diff Scan Auto diff confirmed Differential Comment Auto diff final Auto diff final . Platelet Estimate Normal Platelet Morphology Normal RBC Morphology Normal Hematology Comments Lab - Chemistry Results 12/09/17 12/09/17 12/10/17 13:16 18:25 00:16 Sodium Potassium Chloride Carbon Dioxide Anion Gap BUN Creatinine Estimated GFR POC Glucose 116 H 114 H 110 Random Glucose Calcium Total Bilirubin AST ALT Alkaline Phosphatase Total Protein Albumin 12/10/17 12/10/17 12/10/17 05:16 06:54 11:40 Sodium 138 Potassium 4.4 Chloride 100 Carbon Dioxide 28.5 Anion Gap 10 BUN 27 H Creatinine 0.79 Estimated GFR Greater than 89 POC Glucose 109 117 H Random Glucose 104 Calcium 7.8 L Total Bilirubin 0.5 AST 60 H ALT 42 Alkaline Phosphatase 76 Total Protein 7.1 D Albumin 1.6 L 12/10/17 12/10/17 12/11/17 18:01 23:20 04:35 Sodium 136 Potassium 4.9 Chloride 103 Carbon Dioxide 29.4 Anion Gap 4 L BUN 31 H Creatinine 0.93 Estimated GFR Greater than 89 POC Glucose 106 119 H Random Glucose 96 Calcium 8.2 L Total Bilirubin 0.5 AST 69 H ALT 45 Alkaline Phosphatase 71 Total Protein 7.7 D Albumin 1.9 L 12/11/17 06:14 Sodium Potassium Chloride Carbon Dioxide Anion Gap BUN Creatinine Estimated GFR POC Glucose 101 Random Glucose Calcium Total Bilirubin AST ALT Alkaline Phosphatase Total Protein Albumin Imaging: ITS Impressions Abdomen/Pelvis CT 11/19/17 03:55 CONCLUSION: 1. Limited, suboptimal examination performed without intravenous or oral contrast. The study is degraded by motion artifact as well. 2. Abnormal bowel gas pattern with multiple small air-fluid levels. The bowel is suboptimally visualized and evaluated secondary to the lack of the intravenous and oral contrast as well as diffuse ascites. This may represent a gastroenteritis and/or ileus. Obstruction is less likely. 3. Diffuse ascites throughout the abdomen and pelvis. 4. Moderate size right effusion which is increased from the prior study. There is a new small left effusion. 5. Moderate cardiomegaly. 6. No definite gallstones identified. Head CT 11/19/17 03:55 CONCLUSION: 1. No acute hemorrhage or mass effect. 2. Mild motion and streak artifact. . Head MRI 12/05/17 00:00 CONCLUSION: 1. Edema with restricted diffusion in the medial right superior cerebellum. Imaging findings are characteristic of recent ischemia. 2. Chronic findings include generalized cerebral atrophy with moderate chronic periventricular and subcortical white matter signal change characteristic of chronic microvascular ischemia. The punctate area of signal change in the right centrum semiovale is suspected to represent white matter signal change but nonacute ischemia. Chest X-Ray 12/09/17 06:00 CONCLUSION: Improving basilar consolidations in a radiographic pattern most suggestive of pulmonary edema. Physical Exam: GENERAL: Sedated, on the vent, NAD SKIN: Cool and dry. No generalized rash, no ecchymoses and no evidence of embolic lesions. HEAD: Atraumatic. Normocephalic. No temporal wasting, or tenderness. EYES: [place] conjunctiva. No petechia or hemorrhage. Pupils equal, round and reactive to light. No scleral icterus. EARS, NOSE AND THROAT: Nose without bleeding or purulent nasal discharge. He is orally intubated. NECK: Trachea midline. Supple and not tender, no meningeal signs CARDIOVASCULAR: Irregular rate and rhythm. No murmurs, rubs or gallops heard. Sternotomy scar compatible with surgical history. RESPIRATORY: Coarse breath sounds bilaterally, decreased at the bases. ABDOMEN: Soft, non-tender, nondistended. Bowel sounds present and normoactive. No guarding. No rebound. No organomegaly. EXTREMITIES: No clubbing, cyanosis, or edema. No calf tenderness. Well perfused and warm. NEUROLOGICAL: Opens eyes when stimulated, not interacting. No Babinski, or ankle clonus. PSYCHIATRIC: Unable to assess LINE: PIV no evidence of infection : Condom cath in place, urine looks ok. Assessment and Plan - Plan Impression Sepsis CLABSI (central line associated blood stream infection) Fevers recurrent - temps higher again - has HCAP/VAP, C/S with Enterobacter and Klebsiella - UTI, UC with E coli ESBL+ - new Staph Coag Neg bacteremia Kleb and Enterobacter PNA E coli ESBL UTI Acute Respiratory failure, CHF, PNA Cardiomyopathy, EF <10% Prior MV repair Active cocaine use per resports Newly Dx HIV, CD4 count 60. S/P renal failure, had 2 HD, renal function improved Recommendation Continue Ertapenem IV. Stop Diflucan Continue Vanco IV (target 15-20) Follow temps [id number] progress Family looking at withdrawal, hospice this weekend D/W RHYS
[2017-12-11] MEDS: Dextrose 10% in Water Inj 1,000 ML IV.SIG SCH ×2 (14:50→21:07)
[2017-12-11] MEDS: Morphine Inj 4 MG/ML Vial IV.PUSH PRN (20:11)
[2017-12-11] MEDS ORDERED: Metoprolol Inj 5 MG/5 ML Vial IV.PUSH PRN (21:21)
[2017-12-12] MEDS: Midazolam 50 MG/50 ML Inj 50 MG/50 ML BAG IV.CONT PRN ×3 (01:33→16:37)
[2017-12-12] MEDS ORDERED: Pharmacy Ordered Lab Info OTHER ONE ×2 (05:45→17:45)
--- NOTE | 2017-12-12 06:28 | XR ---
EXAM DATE: 12/12/2017 5:40 AM EDT AGE/SEX: 57 years / Male INDICATIONS: Shortness of breath, possible pulmonary disease. CLINICAL DATA: This is the patient's subsequent encounter. Patient reports that signs and symptoms h ave been present for 2 weeks and indicates a pain score of Nonresponsive. MEDICAL/SURGICAL HISTORY: Congestive heart failure. None. COMPARISON: [facility] [place], CHEST 1V SINGLE AP, 12/09/2017. . FINDINGS: A single AP view of the chest demonstrates an endotracheal tube with the tip 5 cm from the [place]. Na sogastric tube courses off the inferior margin of the film. Mild cardiomegaly. Patchy areas of parenc hymal consolidation particularly within the lower lobes. No effusions. Appearance is similar to the p rior study. CONCLUSION: Unchanged exam as detailed above. Electronically signed by: Brian Pugh MD 12/12/2017 6:27 AM EDT
[2017-12-12] MEDS: Heparin - SQ 10,000 UNITS/ML Vial SQ SCH ×3 (06:44→22:08)
[2017-12-12] MEDS: Vancomycin Inj 1,000 MG in Sodium Chlor 0.9% Inj 250 ML IV.SIG SCH (06:44)
--- NOTE | 2017-12-12 07:42 | XR ---
EXAM DATE: 12/12/2017 7:25 AM EDT AGE/SEX: 57 years / Male INDICATIONS: Evaluate OG tube placement CLINICAL DATA: This is the patient's subsequent encounter. Patient reports that signs and symptoms h ave been present for 2 weeks and indicates a pain score of 0/10. MEDICAL/SURGICAL HISTORY: Cardiovascular disease. None. COMPARISON: No prior exams available for comparison. FINDINGS: Nasogastric tube tip is in the stomach. Bilateral mostly basilar airspace disease. No obstruction or free air identified. CONCLUSION: Orogastric or nasogastric tube tip is projected over the body of the stomach. Electronically signed by: Efren Martin MD 12/12/2017 7:40 AM EDT
[2017-12-12] MEDS: Hypromellose 0.3% Opth Gel 10 GM Bottle EACH EYE SCH ×2 (08:03→22:09)
[2017-12-12] MEDS: Senna/Docusate Sodium 8.6/50 MG Tablet PO SCH ×2 (08:03→22:08)
[2017-12-12] MEDS: Lisinopril 5 MG Tablet PO SCH (08:04)
[2017-12-12 10:48] LABS: DS DNA Ab (Crithidia) <1
--- NOTE | 2017-12-12 15:26 | P.PNCC ---
Subjective Subjective Remarks/Hospital Course: 11/19: This is a 57yM with history of cardiomyopathy and an EF 20% who recently underwent mitral valve repair for severe MR. At that time, he had a preserved LVEF. However, he continued to use illicit cocaine, and on subsequent hospital admissions, his EF had fallen to 20%. He represents today with altered mental status, endorsing cocaine use. On further evaluation, he has a potassium of 7, Cr 2.4, AST/ALT 200/72, CK 1302, BNP 4307, co2 14. On my evaluation he is obtunded and agonally breathing, intermittently tachypneic. I performed bedside critical care echo which demonstrated a severe biventricular dysfunction and an EF < 10%. there was spontaneous echo contrast in the LV and the aortic valve appeared to open only minimally due to low-flow. Patient is grossly anasarcic with 3+ edema bilaterally up to the abdomen. he has JVD above the level of the mandible. I emergently intubated the patient (see separate procedure note for details). I emergently placed arterial, central lines, and dialysis catheter. potassium did not improve with medical therapy. we consulted nephrology for emergent HD. I also placed the patient on epinephrine drip for cardiogenic shock. due to the patient's mental status and clinical status, no additional information is available from him. ROS unobtainable. 11/20: Remains sedated, orally intubated on mechanical ventilation. Dialyzed this morning. Remains on pressors. 11/21: Remains sedated, orally intubated on mechanical ventilation. Hypothermic this morning. 11/22: Remains sedated, orally intubated on mechanical ventilation. Dialysis scheduled today 11/23: Remains sedated, orally intubated on mechanical ventilation. On milrinone. 11/24, 11/25: Remains sedated, orally intubated on mechanical ventilation. Tolerating tube feeds. 11/26: Sedated, orally intubated on mechanical ventilation. Tolerating tube feeds. 11/27 No events overnight. Sedated with Versed and intubated. On Milrinone drip. 11/29 Patient is sedated with Versed and intubated. Remains on Milrinone. T: 100.4 last night. Had 1 run (6 beats) asymptomatic Vtach overnight. Gets tachycardic and tachypneic with CPAP trials. 11/30 Patient remains sedated and intubated. T:100.4 last night. Not tolerating CPAP trials. 12/01 No events overnight. T:100.0 last night. Sedated with versed and on Milrinone. 12/02 Patient remains intubated and sedated. T;100.0 last night. On Versed and Diprivan infusion for sedation. Not tolerating CPAP trials. 12/03 No events overnight. Sedated and intubated. On Milrinone. Afebrile. 12/04 Patient remains sedated and intubated. Afebrile. 12/05: Afebrile. Start back on midazolam drip due to tachycardia/agitation. Heart rate currently in the 150s. Did not tolerate CPAP trial. Remains on milrinone at 0.25 mcg/kg/min 12/06: Resting comfortably in bed. Remains on midazolam drip at 6 mg an hour. MRI brain yesterday revealed right-sided superior cerebellar CVA with some edema. Awaiting family decision for tracheostomy and PEG tube placement 12/07: T-max 101.2. Currently on midazolam drip at 10 mg an hour due to "agitation and tachypnea" overnight. 2 runs of nonsustained V. tach. Magnesium potassium being replaced. 12/08: T-max 100.5. Currently on midazolam drip at 7 mg an hour. Phosphorus currently being replaced. Plan for discussion about trach/PEG versus withdrawal of care tomorrow with mother and daughter. 12/09: no improvements. remains very critically ill. unlikely to survive. palliative discussion today and family still discussion withdraw vs. aggressive measures. 12/10: no improvements. family deciding on when to withdraw care: need some family to travel from out-of-town to be with patient. 12/11: no changes. plan for withdraw on saturday when family at bedside. until then, will need to mitigate the suffering we provide to the patient in the form of lab draws and medication administrations. Subjective 12/12: no changes. appears comfortable. awaiting family to arrive. Objective Vital Signs / I&O: Vital Signs 12/11/17 17:08 12/11/17 20:00 12/11/17 20:57 Temperature Pulse Rate 135 H Respiratory Rate 24 20 Blood Pressure Pulse Oximetry 100 100 12/12/17 00:37 12/12/17 04:59 12/12/17 08:00 Temperature 37.7 C H Pulse Rate 74 Respiratory Rate 16 16 18 Blood Pressure 122/78 Pulse Oximetry 100 100 100 12/12/17 08:25 Temperature Pulse Rate Respiratory Rate 16 Blood Pressure Pulse Oximetry 100 Intake & Output 12/11/17 12/12/17 12/12/17 18:59 06:59 18:59 Intake Total 1481 / 1481 300 / 300 1500 / 1500 Output Total 950 / 950 400 / 400 Balance 531 / 531 -100 / -100 1500 / 1500 Weight 64.5 kg Intake: IV 1050 / 1050 300 / 300 1500 / 1500 Versed Inj 50 mg In 50 ml @ 10 50 / 50 50 / 50 50 / 50 MG/HR 10 mls/hr IV.CONT TITRATE PRN Rx#:[id number] [id number] Inj 1,000 ML @ 30 mls/hr 1000 / 1000 1000 / 1000 IV.SIG .Q24H [facility] Rx#:[id number] INVanz Inj 1,000 MG In NS Inj 200 / 200 100 ML @ 100 mls/hr IV.SIG Q24H [facility] Rx#:[id number] Vancomycin Inj 1,000 MG In NS 250 / 250 250 / 250 Inj 250 ML @ 250 mls/hr IV.SIG Q12H [facility] Rx#:[id number] Tube Feeding 371 / 371 Water Bolus Amount 60 / 60 Output: Urine 950 / 950 Urine Amount (Catheter) 400 / 400 Condom 400 / 400 Other: Date of Last Bowel Movement 12/11/17 12/11/17 12/11/17 # Bowel Movements 2 Result Diagrams: 12/11/17 04:35 12/11/17 04:35 Objective Remarks: GENERAL: Patient is 57 yo AA male intubated and sedated SKIN: Warm and dry. HEAD: Normocephalic. EYES: No scleral icterus. No injection or drainage. NECK: Supple, trachea midline. No JVD or lymphadenopathy. CARDIOVASCULAR: Regular rate and rhythm without murmurs, gallops, or rubs. RESPIRATORY: Breath sounds equal bilaterally. No accessory muscle use. GASTROINTESTINAL: Abdomen soft, non-tender, nondistended. MUSCULOSKELETAL: Trace bilateral lower extremity edema. Neuro: Sedated. Inconsistent Assessment and Plan - Assessment and Plan Plan: Neurologic: Acute toxic encephalopathy Acute cocaine intoxication Acute metabolic encephalopathy secondary to shock Right superior cerebellar CVA On midazolam drip for sedation while intubated Morphine sulfate 4 mg IV every 2 hours as needed pain Daily sedation vacation. Monitor neuro status. MRI brain 12/05 revealed restricted diffusion in the medial right superior cerebellum. Chronic periventricular and subcortical white matter signal change case of chronic microvascular ischemia. EEG 12/05 revealed moderate encephalopathy. No epileptic activity Respiratory: Acute hypoxic and hypercarbic respiratory failure Acute severe pulmonary edema Continue with vent support keep sats >92% Bronchodilators with albuterol/ipratropium aerosols every 6 hours with albuterol aerosols every 2 hours as needed for dyspnea. no SBT. Cardiovascular: s/p Cardiogenic shock Acute severe systolic congestive heart failure exacerbation Acute type II non-ST elevation myocardial infarction secondary to demand ischemia known prior EF 20% (09/2017), Echo 11/27: EF <20%, mod- severe MR, PAP 53.9mmHg likely secondary to chronic cocaine use superimposed on cardiomyopathy. Monitor HR and BP keep MAP>65mmHg. on carvedilol 3.125mg BID. And lisinopril 5mg daily On 12.5 mg twice daily carvedilol at home. Holding amlodipine 10 mg daily/ home medication Discontinued 12/07 milrinone drip at 0.25 mcg/kg/min. Lactic acid resolved 1.1 on 11/20 Renal: Acute kidney injury- resolved RACHID positive. Positive RACHID screen pending. Low complements noted. Monitor renal function, I/O's, electrolytes replacement per protocol. Vascath d/c 11/26. d/c furosemide. Renal has followed FEN/GI: Hep C reactive viral load 351, 000 international units per milliliter Hypoalbuminemia Possible autoimmune hepatitis Severe acute protein calorie malnutrition need to limit amount of volume given to patient given severe heart failure. also , questionable absorption and toleration of tube feeds at this point. abdomen more distended. will hold tube feeds for now and re-evaluate daily. Lansoprazole for GI prophylaxis. Docusate sodium/senna 1 tablet twice daily for bowel regimen Heme/ID: VAP -Enterobacter/Klebsiella E. coli UTI HIV - CD4 60 new diagnosis AIDS Normocytic anemia Daily CBC , HIV reactive on screening test. CD4 count: 60 Meropenem switched to ertapenem by ID, added vancomycin 12/07 monitor for signs of infections ( Fever, WBC). Check UA urine cxs: ESBL E.coli 11/27 Sputum cx: Enterobacter, Kleb BC 11/29: NGTD 12/06 - BC -gram-positive cocci from line and peripherally. Negative blood cultures 12/07 ID is following Endocrine: SSI with accuchecks Prophylaxis: GI Prophylaxis Lansoprazole DVT Prophylaxis Subcu heparin Lines: 11/19 right subclavian 7 [place] triple-lumen catheter discontinued 12/07 11/19 right IJ 14 [place] 20 cm dialysis catheter d/c 11/26 Prognosis appears poor. Palliative care following to assist with deciding goals of therapy. plan to withdraw care on saturday.
--- NOTE | 2017-12-12 17:17 | P.PNPAL ---
Reason for Visit Reason for visit: a. To assist with evaluation and management of symptoms including: Altered mental status, dyspnea b. To assist medical decision maker(s) with: better understanding of current medical conditions; weighing benefits/burdens of medical treatment options; making medical treatment decisions. Subjective Subjective/Interval History: Follow up medically necessary for symptom management of altered mental status and dyspnea and further clarification of goals of medical treatment. Remains with altered mental status. He comes agitated and tachypneic with weaning of sedation, not following commands. Continues to require Versed for control of symptoms. Imaging shows evidence of recent ischemia with edema and restricted diffusion in the right medial superior cerebellum. He remains ventilated, not tolerating weaning trials due to agitation, requiring sedation. He minimally breathes over the vent. Family is requesting withdrawal of ventilator support on Saturday when all can be gathered at bedside. . Advance Directives Living Will: Never completed Health Care Surrogate: Never completed Durable Power of Cmo: Never completed Health Care Surrogate Name and Number: HCP: Jaky Medina [phone] Objective Vital Signs: Vital Signs 12/11/17 17:08 12/11/17 20:00 12/11/17 20:57 Temperature Pulse Rate 135 H Respiratory Rate 24 20 Blood Pressure Pulse Oximetry 100 100 12/12/17 00:37 12/12/17 04:59 12/12/17 08:00 Temperature 99.8 F H Pulse Rate 74 Respiratory Rate 16 16 18 Blood Pressure 122/78 Pulse Oximetry 100 100 100 12/12/17 08:25 12/12/17 15:53 Temperature Pulse Rate Respiratory Rate 16 16 Blood Pressure Pulse Oximetry 100 100 Intake & Output 12/11/17 12/12/17 12/12/17 18:59 06:59 18:59 Intake Total 1481 / 1481 300 / 300 1550 / 1550 Output Total 950 / 950 400 / 400 Balance 531 / 531 -100 / -100 1550 / 1550 Weight 142 lb 3.17 oz Intake: IV 1050 / 1050 300 / 300 1550 / 1550 Versed Inj 50 mg In 50 ml @ 10 50 / 50 50 / 50 100 / 100 MG/HR 10 mls/hr IV.CONT TITRATE PRN Rx#:[id number] Inj 1,000 ML @ 30 mls/hr 1000 / 1000 1000 / 1000 IV.SIG .Q24H RUDDY Rx#:[id number] INVanz Inj 1,000 MG In NS Inj 200 / 200 100 ML @ 100 mls/hr IV.SIG Q24H RUDDY Rx#:[id number] Vancomycin Inj 1,000 MG In NS 250 / 250 250 / 250 Inj 250 ML @ 250 mls/hr IV.SIG Q12H RUDDY Rx#:[id number] Tube Feeding 371 / 371 Water Bolus Amount 60 / 60 Output: Urine 950 / 950 Urine Amount (Catheter) 400 / 400 Condom 400 / 400 Other: Date of Last Bowel Movement 12/11/17 12/11/17 12/11/17 # Bowel Movements 2 Physical Exam: CONSTITUTIONAL/GENERAL: This is an adequately nourished patient, intubated, sedated, in no apparent distress. TUBES/LINES/DRAINS: Right arm PIV x2, ETT, Condom catheter,OGT, . SKIN: No jaundice, rashes, or lesions. No wounds seen anteriorly. Normothermic. HEAD: Atraumatic. Normocephalic. EYES: PERRLA. No scleral icterus. No injection or drainage. Fundi not examined. ENT: Nose without bleeding or purulent drainage. Orally intubated. NECK: Trachea midline. Supple, nontender. CARDIOVASCULAR: S1, S2. Irregular rhythm, controlled rate without gallops, or rubs. Soft 2/6 systolic ejection murmur. No JVD. Pedal pulses+ve RESPIRATORY/CHEST: Symmetric, unlabored respirations. Scattered rhonchi. GASTROINTESTINAL: Abdomen soft, nondistended. Intermittent BS. OGT. GENITOURINARY: Without palpable bladder distension. Condom catheter MUSCULOSKELETAL: Extremities without clubbing or cyanosis, trace edema to BLE,2 + to BUE. No mottling or clubbing. NEUROLOGICAL: Intubated, sedated. On Midazolam. Withdraws with all 4 extremities PSYCHIATRIC: Unable to assess. Currently sedated. . Diagnostic Tests Laboratory: Laboratory Results - last 72 hr 12/05/17 12/07/17 12/09/17 13:11 10:20 18:25 WBC RBC Hgb Hct MCV MCH MCHC RDW Plt Count MPV Prelim Diff (Auto) Neut % (Auto) Lymph % (Auto) Swisher % (Auto) Eos % (Auto) Baso % (Auto) Neut # (Auto) Lymph # (Auto) Swisher # (Auto) Eos # (Auto) Baso # (Auto) WBC Differential Diff Scan Differential Comment Platelet Estimate Platelet Morphology RBC Morphology Hematology Comments Sodium Potassium Chloride Carbon Dioxide Anion Gap BUN Creatinine Estimated GFR POC Glucose 114 H Random Glucose Calcium Total Bilirubin AST ALT Alkaline Phosphatase Total Protein Albumin Vancomycin Trough Rheumatoid Factor Less than 14 Sm (Riddle) Antibody <1.0 SM/JEWELRY MAKER Antibody <1.0 Scl-70 Antibody <1.0 Anti-ds DNA (Crithidia) <1 Ribosomal P Prot Ab <1.0 Complement C3 119 Complement C4 14 L HCV RNA Genotype 1a 12/09/17 12/10/17 12/10/17 18:35 00:16 01:41 WBC 7.0 RBC 4.25 L Hgb 12.5 L Hct 37.5 L MCV 88.1 D MCH 29.4 MCHC 33.4 RDW 14.6 Plt Count 210 MPV 9.9 Prelim Diff (Auto) Neut % (Auto) 64.1 Lymph % (Auto) 14.9 Swisher % (Auto) 14.5 H Eos % (Auto) 5.6 H Baso % (Auto) 0.9 Neut # (Auto) 4.5 Lymph # (Auto) 1.0 Swisher # (Auto) 1.0 H Eos # (Auto) 0.4 Baso # (Auto) 0.1 WBC Differential . Diff Scan Differential Comment Auto diff final Platelet Estimate Platelet Morphology RBC Morphology Hematology Comments Sodium Potassium Chloride Carbon Dioxide Anion Gap BUN Creatinine Estimated GFR POC Glucose 110 Random Glucose Calcium Total Bilirubin AST ALT Alkaline Phosphatase Total Protein Albumin Vancomycin Trough 24.8 H Rheumatoid Factor Sm (Riddle) Antibody SM/JEWELRY MAKER Antibody Scl-70 Antibody Anti-ds DNA (Crithidia) Ribosomal P Prot Ab Complement C3 Complement C4 HCV RNA Genotype 12/10/17 12/10/17 12/10/17 05:16 06:54 06:54 WBC 4.2 RBC 4.29 L Hgb 12.6 L Hct 38.8 L MCV 90.3 MCH 29.3 MCHC 32.5 RDW 14.5 Plt Count 206 MPV 9.4 Prelim Diff (Auto) Neut % (Auto) 71.3 H Lymph % (Auto) 12.1 Swisher % (Auto) 9.5 H Eos % (Auto) 6.3 H Baso % (Auto) 0.8 Neut # (Auto) 3.0 Lymph # (Auto) 0.5 L Swisher # (Auto) 0.4 Eos # (Auto) 0.3 Baso # (Auto) 0.0 WBC Differential . Diff Scan Differential Comment Auto diff final Platelet Estimate Platelet Morphology RBC Morphology Hematology Comments Sodium 138 Potassium 4.4 Chloride 100 Carbon Dioxide 28.5 Anion Gap 10 BUN 27 H Creatinine 0.79 Estimated GFR Greater than 89 POC Glucose 109 Random Glucose 104 Calcium 7.8 L Total Bilirubin 0.5 AST 60 H ALT 42 Alkaline Phosphatase 76 Total Protein 7.1 D Albumin 1.6 L Vancomycin Trough Rheumatoid Factor Sm (Riddle) Antibody SM/JEWELRY MAKER Antibody Scl-70 Antibody Anti-ds DNA (Crithidia) Ribosomal P Prot Ab Complement C3 Complement C4 HCV RNA Genotype 12/10/17 12/10/17 12/10/17 11:40 18:01 23:20 WBC RBC Hgb Hct MCV MCH MCHC RDW Plt Count MPV Prelim Diff (Auto) Neut % (Auto) Lymph % (Auto) Swisher % (Auto) Eos % (Auto) Baso % (Auto) Neut # (Auto) Lymph # (Auto) Swisher # (Auto) Eos # (Auto) Baso # (Auto) WBC Differential Diff Scan Differential Comment Platelet Estimate Platelet Morphology RBC Morphology Hematology Comments Sodium Potassium Chloride Carbon Dioxide Anion Gap BUN Creatinine Estimated GFR POC Glucose 117 H 106 119 H Random Glucose Calcium Total Bilirubin AST ALT Alkaline Phosphatase Total Protein Albumin Vancomycin Trough Rheumatoid Factor Sm (Riddle) Antibody SM/JEWELRY MAKER Antibody Scl-70 Antibody Anti-ds DNA (Crithidia) Ribosomal P Prot Ab Complement C3 Complement C4 HCV RNA Genotype 12/11/17 12/11/17 12/11/17 04:35 04:35 06:14 WBC 4.3 RBC 4.32 L Hgb 12.8 L Hct 38.7 L MCV 89.8 MCH 29.5 MCHC 32.9 RDW 14.7 Plt Count 198 MPV 9.7 Prelim Diff (Auto) Slide review pending Neut % (Auto) 69.3 Lymph % (Auto) 14.6 Swisher % (Auto) 10.4 H Eos % (Auto) 4.6 H Baso % (Auto) 1.1 Neut # (Auto) 3.0 Lymph # (Auto) 0.6 L Swisher # (Auto) 0.4 Eos # (Auto) 0.2 Baso # (Auto) 0.0 WBC Differential . Diff Scan Auto diff confirmed Differential Comment . Platelet Estimate Normal Platelet Morphology Normal RBC Morphology Normal Hematology Comments Sodium 136 Potassium 4.9 Chloride 103 Carbon Dioxide 29.4 Anion Gap 4 L BUN 31 H Creatinine 0.93 Estimated GFR Greater than 89 POC Glucose 101 Random Glucose 96 Calcium 8.2 L Total Bilirubin 0.5 AST 69 H ALT 45 Alkaline Phosphatase 71 Total Protein 7.7 D Albumin 1.9 L Vancomycin Trough Rheumatoid Factor Sm (Riddle) Antibody SM/JEWELRY MAKER Antibody Scl-70 Antibody Anti-ds DNA (Crithidia) Ribosomal P Prot Ab Complement C3 Complement C4 HCV RNA Genotype 12/11/17 12:09 WBC RBC Hgb Hct MCV MCH MCHC RDW Plt Count MPV Prelim Diff (Auto) Neut % (Auto) Lymph % (Auto) Swisher % (Auto) Eos % (Auto) Baso % (Auto) Neut # (Auto) Lymph # (Auto) Swisher # (Auto) Eos # (Auto) Baso # (Auto) WBC Differential Diff Scan Differential Comment Platelet Estimate Platelet Morphology RBC Morphology Hematology Comments Sodium Potassium Chloride Carbon Dioxide Anion Gap BUN Creatinine Estimated GFR POC Glucose 103 Random Glucose Calcium Total Bilirubin AST ALT Alkaline Phosphatase Total Protein Albumin Vancomycin Trough Rheumatoid Factor Sm (Riddle) Antibody SM/JEWELRY MAKER Antibody Scl-70 Antibody Anti-ds DNA (Crithidia) Ribosomal P Prot Ab Complement C3 Complement C4 HCV RNA Genotype Result Diagrams: 12/11/17 04:35 12/11/17 04:35 Microbiology: Microbiology 12/08/17 12:20 Aerobic Blood Culture - Preliminary Blood - Peripheral No growth in 4 days Anaerobic Blood Culture - Preliminary No growth in 4 days 12/08/17 12:10 Aerobic Blood Culture - Preliminary Blood - Peripheral No growth in 4 days Anaerobic Blood Culture - Preliminary No growth in 4 days 12/07/17 19:35 Aerobic Blood Culture - Final Blood - Peripheral No growth in 5 days Anaerobic Blood Culture - Final No growth in 5 days 12/07/17 19:30 Aerobic Blood Culture - Final Blood - Peripheral No growth in 5 days Anaerobic Blood Culture - Final No growth in 5 days 12/06/17 13:03 Aerobic Blood Culture - Final Blood - Peripheral No growth in 5 days Anaerobic Blood Culture - Final Staphylococcus epidermidis Staphylococcus coag negative 12/06/17 13:09 Aerobic Blood Culture - Final Blood - Line Staph. cohnii-urealyticum Staphylococcus coag negative Anaerobic Blood Culture - Final No growth in 5 days Procedures: 11/19/2017: Right radial arterial line placement 11/19/2017: Endotracheal intubation 11/19/2017: Right subclavian triple-lumen catheter placement 11/19/2017 right IJ dialysis catheter placement Dc`d 11/26/17 . 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 He was never and has no children. He was previously in the [employer]. Spiritual: Tuyere Fitter available. Legal: No living will or healthcare surrogate completed. Ethical issues impacting care: None noted. . Important Contacts: Mother: Angelina Medina healthcare proxy- Currently living with daughter, Kaylie Gama. Sister: Bryan Sharp Sister: Kamille Lucina Brother: Segundo Lucina Brother: Carter Chavez Sister: Kaylie Gama - , C [phone] . Prognosis: His prognosis is poor. He has end-stage heart disease now with an ejection fraction estimated to be less than 10% by cargo handler echo. He has suffered a decline in heart function since June 2017 when echocardiogram showed a 50-55% ejection fraction at the time of mitral valve repair. Patient continued to abuse cocaine and possibly other substances and when seen in [place] September 2017 for chest pain was found to have non-ischemic cardiomyopathy with a normal coronary artery circulation and ejection fraction of 20-25%. Echocardiogram at this admission shows cardiogenic shock with an EF less than 10%. He is now requiring inotropic support with milrinone and now has acute kidney injury requiring dialysis for both hyperkalemia and fluid overload. At this time he remains on life support, intubated, but is at elevated risk for continued complications and decline. He would be hospice appropriate if goals were consistent. . Code Status: No Code DNR (Do not reintubate) Plan: PLAN: Legal decision maker: At this time the patient is not capacitated for decision making and it is not certain that he will ever regain capacity. He was never and has no children. His mother would be his proxy decision maker per [place] statutes. She had previously been reported to me as demented and unable to make these decisions, however, her daughter, Kaylie, who is her caregiver disputes that and states that her mother is perfectly capable of making these decisions and wishes to be her son's decision-maker. In conversation with Ms. Medina, herself, she appeared appropriate and capable of decision-making. Goals: Aggressive short of no code. Awaiting family to come in today as promised to make a decision whether to proceed with tracheostomy and PEG placement or compassionately withdrawing from life support. Family had discussion with Dr. Bello and have postponed decision making to 12/10/17 CODE STATUS: DO NOT RESUSCITATE SYMPTOMS: * Altered mental status: Presented with altered mental status, positive for cocaine, hypoglycemic, hyperkalemic, in fulminant heart failure, minimally able to make his needs known. Shortly thereafter he required intubation and sedation. Bedside critical care echo showed severe biventricular dysfunction with EF less than 10%, aortic valve opening only minimally due to low flow. HIV positive-CD4 count 60, end stage AIDS, ?AIDS related dementia. Patient continues to be agitated when sedation is weaned off. MRI brain on 12/05 revealed right sided superior cerebellar CVA with some edema. EEG on 12/05 revealed mild encephalopathy. No recommendations at this time * Dyspnea: Patient becomes dyspneic, tachypneic, agitated with decreasing sedation. Is likely multifactorial to include severe heart failure, Enterobacter/Klebsiella associated pneumonia, history of crack cocaine smoking. Family is planning withdrawal of ventilator support on Saturday. It is their wish that patient be treated for comfort measures. No further recommendations at this time. Palliative care will continue to follow the patient during hospital course as condition evolves, to assist patient/decision-maker with understanding of their medical conditions, weighing benefits/burdens of treatment options, for clarification of goals of treatment. Additionally will assist with any symptoms of palliative concern. . Attestation Attestation: To help prompt me to consider important information that might be impacting today's encounter and assessment, information from prior notes written by myself or my colleagues may have been "brought forward" into today's note. My signature on this note, however, is an attestation that I personally performed the exam, history, and/or decision-making noted today, and, unless otherwise indicated, the interactions with patient, family, and staff as well as the review of records all occurred today. I also attest that the listed assessment and stated plan reflect my best clinical judgment today based on the combination of historical information, prior notes, and today's exam/ interactions. When time spent is documented, it refers only to time spent today by the signer, or if indicated, combined time spent today by collaborating physician/nurse practitioner. .
[2017-12-12] MEDS: Dextrose 10% in Water Inj 1,000 ML IV.SIG SCH (22:09)
[2017-12-13] MEDS: Midazolam 50 MG/50 ML Inj 50 MG/50 ML BAG IV.CONT PRN ×3 (02:41→21:04)
[2017-12-13] MEDS: Heparin - SQ 10,000 UNITS/ML Vial SQ SCH ×3 (05:40→21:03)
[2017-12-13 06:28] VITALS: TEMP 97.1
[2017-12-13 08:22] VITALS: RESP 16
[2017-12-13] MEDS: Hypromellose 0.3% Opth Gel 10 GM Bottle EACH EYE SCH ×2 (10:53→21:03)
[2017-12-13] MEDS: Senna/Docusate Sodium 8.6/50 MG Tablet PO SCH ×2 (10:54→21:04)
[2017-12-13] MEDS: Lisinopril 5 MG Tablet PO SCH (10:54)
[2017-12-13 11:21] LABS: Vancomycin,Random 21.6 Comment
--- NOTE | 2017-12-13 13:22 | P.PNPAL ---
Reason for Visit Reason for visit: a. To assist with evaluation and management of symptoms including: Altered mental status, dyspnea b. To assist medical decision maker(s) with: better understanding of current medical conditions; weighing benefits/burdens of medical treatment options; making medical treatment decisions. Subjective Subjective/Interval History: Follow up medically necessary for symptom management of altered mental status and dyspnea and further clarification of goals of medical treatment. He remains on Versed at 7 mg/h for control of agitation during sedation vacations for vent weaning. Remains altered, does not follow commands. Blood cultures now negative. He remains ventilated, not tolerating weaning trials due to agitation, requiring sedation. He minimally breathes over the vent. Family is requesting withdrawal of ventilator support on Saturday when all can be gathered at bedside. . Family/Friend Interactions: Spoke with patient's mother and sister Kaylie, at bedside. While still hoping for a miracle, they are prepared to proceed with compassionate withdrawal tomorrow. Family plans to gather approximately at noon-1 PM in preparation for the withdrawal. Consents are signed and on the chart. . Advance Directives Living Will: Never completed Health Care Surrogate: Never completed Durable Power of Water Pipe Installer: Never completed Health Care Surrogate Name and Number: HCP: Jaky Medina [phone] Objective Vital Signs: Vital Signs 12/12/17 15:53 12/12/17 16:00 12/12/17 16:30 Temperature Pulse Rate 79 75 Respiratory Rate 16 16 16 Blood Pressure 107/74 106/74 Pulse Oximetry 100 100 100 12/12/17 17:00 12/12/17 17:30 12/12/17 18:00 Temperature Pulse Rate 92 H 90 81 Respiratory Rate 16 16 16 Blood Pressure 118/82 124/85 133/80 Pulse Oximetry 100 100 100 12/12/17 18:30 12/12/17 19:00 12/12/17 19:30 Temperature Pulse Rate 82 75 77 Respiratory Rate 16 16 16 Blood Pressure 108/76 101/68 115/83 Pulse Oximetry 100 100 100 12/12/17 20:00 12/12/17 20:30 12/12/17 20:40 Temperature Pulse Rate 84 80 Respiratory Rate 16 16 16 Blood Pressure 115/76 111/77 Pulse Oximetry 100 100 100 12/12/17 21:00 12/12/17 21:31 12/12/17 22:00 Temperature Pulse Rate 75 77 76 Respiratory Rate 16 16 16 Blood Pressure 108/76 112/89 114/82 Pulse Oximetry 100 100 100 12/12/17 22:30 12/12/17 23:00 12/12/17 23:30 Temperature Pulse Rate 80 80 85 Respiratory Rate 16 16 16 Blood Pressure 114/82 129/92 H 119/84 Pulse Oximetry 100 98 100 12/13/17 00:00 12/13/17 00:30 12/13/17 01:00 Temperature Pulse Rate 80 90 82 Respiratory Rate 16 16 16 Blood Pressure 112/77 117/84 117/85 Pulse Oximetry 100 100 12/13/17 01:30 12/13/17 01:32 12/13/17 02:00 Temperature Pulse Rate 81 86 Respiratory Rate 16 16 16 Blood Pressure 119/85 117/84 Pulse Oximetry 100 98 100 12/13/17 02:30 12/13/17 03:00 12/13/17 03:30 Temperature Pulse Rate 104 H 101 H 95 H Respiratory Rate 22 16 16 Blood Pressure 111/70 120/85 113/84 Pulse Oximetry 12/13/17 04:00 12/13/17 04:13 12/13/17 06:27 Temperature 97.1 F L Pulse Rate 94 H 66 Respiratory Rate 16 16 20 Blood Pressure 115/81 188/94 H Pulse Oximetry 97 95 100 12/13/17 08:20 12/13/17 12:04 Temperature Pulse Rate Respiratory Rate 16 16 Blood Pressure Pulse Oximetry 100 100 Intake & Output 12/12/17 12/13/17 12/13/17 18:59 06:59 18:59 Intake Total 1550 / 1550 50 / 50 Output Total 500 / 500 300 / 300 Balance 1050 / 1050 -250 / -250 Weight 141 lb 1.533 oz Intake: IV 1550 / 1550 50 / 50 Versed Inj 50 mg In 50 ml @ 10 100 / 100 50 / 50 MG/HR 10 mls/hr IV.CONT TITRATE PRN Rx#:[id number] D10W Inj 1,000 ML @ 30 mls/hr 1000 / 1000 IV.SIG .Q24H [facility] Rx#:[id number] INVanz Inj 1,000 MG In NS Inj 200 / 200 100 ML @ 100 mls/hr IV.SIG Q24H [facility] Rx#:[id number] Vancomycin Inj 1,000 MG In NS 250 / 250 Inj 250 ML @ 250 mls/hr IV.SIG Q12H [facility] Rx#:[id number] Output: Urine Amount (Catheter) 500 / 500 300 / 300 Condom 500 / 500 300 / 300 Other: Date of Last Bowel Movement 12/11/17 12/11/17 Physical Exam: CONSTITUTIONAL/GENERAL: This is an adequately nourished patient, intubated, sedated, in no apparent distress. TUBES/LINES/DRAINS: Right arm PIV x2, ETT, Condom catheter,OGT, . SKIN: No jaundice, rashes, or lesions. No wounds seen anteriorly. Normothermic. HEAD: Atraumatic. Normocephalic. EYES: PERRLA. No scleral icterus. No injection or drainage. Fundi not examined. ENT: Nose without bleeding or purulent drainage. Orally intubated. NECK: Trachea midline. Supple, nontender. CARDIOVASCULAR: S1, S2. Irregular rhythm, controlled rate without gallops, or rubs. Soft 2/6 systolic ejection murmur. No JVD. Pedal pulses+ve RESPIRATORY/CHEST: Symmetric, unlabored respirations. Lungs clear. GASTROINTESTINAL: Abdomen soft, nondistended. Intermittent BS. OGT. GENITOURINARY: Without palpable bladder distension. Condom catheter MUSCULOSKELETAL: Extremities without clubbing or cyanosis, trace edema to BLE,2 + to BUE. No mottling or clubbing. NEUROLOGICAL: Intubated, sedated. On Midazolam. Withdraws with all 4 extremities , minimally arousable to voice, not following commands. PSYCHIATRIC: Unable to assess. Currently sedated. . Diagnostic Tests Laboratory: Laboratory Results - last 72 hr 12/05/17 12/07/17 12/10/17 13:11 10:20 18:01 WBC RBC Hgb Hct MCV MCH MCHC RDW Plt Count MPV Prelim Diff (Auto) Neut % (Auto) Lymph % (Auto) [place] % (Auto) Eos % (Auto) Baso % (Auto) Neut # (Auto) Lymph # (Auto) [place] # (Auto) Eos # (Auto) Baso # (Auto) WBC Differential Diff Scan Differential Comment Platelet Estimate Platelet Morphology RBC Morphology Sodium Potassium Chloride Carbon Dioxide Anion Gap BUN Creatinine Estimated GFR POC Glucose 106 Random Glucose Calcium Total Bilirubin AST ALT Alkaline Phosphatase Total Protein Albumin Vancomycin Trough Random Vancomycin Sm (Riddle) Antibody <1.0 SM/ENVELOPE PRESS OPERATOR Antibody <1.0 Scl-70 Antibody <1.0 Anti-ds DNA (Crithidia) <1 Ribosomal P Prot Ab <1.0 Complement C3 119 Complement C4 14 L HCV RNA Genotype 1a 12/10/17 12/11/17 12/11/17 23:20 04:35 04:35 WBC 4.3 RBC 4.32 L Hgb 12.8 L Hct 38.7 L MCV 89.8 MCH 29.5 MCHC 32.9 RDW 14.7 Plt Count 198 MPV 9.7 Prelim Diff (Auto) Slide review pending Neut % (Auto) 69.3 Lymph % (Auto) 14.6 [place] % (Auto) 10.4 H Eos % (Auto) 4.6 H Baso % (Auto) 1.1 Neut # (Auto) 3.0 Lymph # (Auto) 0.6 L [place] # (Auto) 0.4 Eos # (Auto) 0.2 Baso # (Auto) 0.0 WBC Differential . Diff Scan Auto diff confirmed Differential Comment . Platelet Estimate Normal Platelet Morphology Normal RBC Morphology Normal Sodium 136 Potassium 4.9 Chloride 103 Carbon Dioxide 29.4 Anion Gap 4 L BUN 31 H Creatinine 0.93 Estimated GFR Greater than 89 POC Glucose 119 H Random Glucose 96 Calcium 8.2 L Total Bilirubin 0.5 AST 69 H ALT 45 Alkaline Phosphatase 71 Total Protein 7.7 D Albumin 1.9 L Vancomycin Trough Random Vancomycin Sm (Riddle) Antibody SM/ENVELOPE PRESS OPERATOR Antibody Scl-70 Antibody Anti-ds DNA (Crithidia) Ribosomal P Prot Ab Complement C3 Complement C4 HCV RNA Genotype 12/11/17 12/11/17 12/12/17 06:14 12:09 18:50 WBC RBC Hgb Hct MCV MCH MCHC RDW Plt Count MPV Prelim Diff (Auto) Neut % (Auto) Lymph % (Auto) [place] % (Auto) Eos % (Auto) Baso % (Auto) Neut # (Auto) Lymph # (Auto) [place] # (Auto) Eos # (Auto) Baso # (Auto) WBC Differential Diff Scan Differential Comment Platelet Estimate Platelet Morphology RBC Morphology Sodium Potassium Chloride Carbon Dioxide Anion Gap BUN Creatinine Estimated GFR POC Glucose 101 103 Random Glucose Calcium Total Bilirubin AST ALT Alkaline Phosphatase Total Protein Albumin Vancomycin Trough 28.1 H Random Vancomycin Sm (Riddle) Antibody SM/ENVELOPE PRESS OPERATOR Antibody Scl-70 Antibody Anti-ds DNA (Crithidia) Ribosomal P Prot Ab Complement C3 Complement C4 HCV RNA Genotype 12/13/17 12/13/17 09:48 11:43 WBC RBC Hgb Hct MCV MCH MCHC RDW Plt Count MPV Prelim Diff (Auto) Neut % (Auto) Lymph % (Auto) [place] % (Auto) Eos % (Auto) Baso % (Auto) Neut # (Auto) Lymph # (Auto) [place] # (Auto) Eos # (Auto) Baso # (Auto) WBC Differential Diff Scan Differential Comment Platelet Estimate Platelet Morphology RBC Morphology Sodium Potassium Chloride Carbon Dioxide Anion Gap BUN Creatinine 1.13 Estimated GFR 81 L POC Glucose 101 Random Glucose Calcium Total Bilirubin AST ALT Alkaline Phosphatase Total Protein Albumin Vancomycin Trough Random Vancomycin 21.6 Sm (Riddle) Antibody SM/ENVELOPE PRESS OPERATOR Antibody Scl-70 Antibody Anti-ds DNA (Crithidia) Ribosomal P Prot Ab Complement C3 Complement C4 HCV RNA Genotype Result Diagrams: 12/11/17 04:35 12/13/17 09:48 Microbiology: Microbiology 12/08/17 12:20 Aerobic Blood Culture - Final Blood - Peripheral No growth in 5 days Anaerobic Blood Culture - Final No growth in 5 days 12/08/17 12:10 Aerobic Blood Culture - Final Blood - Peripheral No growth in 5 days Anaerobic Blood Culture - Final No growth in 5 days 12/07/17 19:35 Aerobic Blood Culture - Final Blood - Peripheral No growth in 5 days Anaerobic Blood Culture - Final No growth in 5 days 12/07/17 19:30 Aerobic Blood Culture - Final Blood - Peripheral No growth in 5 days Anaerobic Blood Culture - Final No growth in 5 days 12/06/17 13:03 Aerobic Blood Culture - Final Blood - Peripheral No growth in 5 days Anaerobic Blood Culture - Final Staphylococcus epidermidis Staphylococcus coag negative 12/06/17 13:09 Aerobic Blood Culture - Final Blood - Line Staph. cohnii-urealyticum Staphylococcus coag negative Anaerobic Blood Culture - Final No growth in 5 days Imaging: Abdomen/Pelvis CT 11/19/17 03:55 CONCLUSION: 1. Limited, suboptimal examination performed without intravenous or oral contrast. The study is degraded by motion artifact as well. 2. Abnormal bowel gas pattern with multiple small air-fluid levels. The bowel is suboptimally visualized and evaluated secondary to the lack of the intravenous and oral contrast as well as diffuse ascites. This may represent a gastroenteritis and/or ileus. Obstruction is less likely. 3. Diffuse ascites throughout the abdomen and pelvis. 4. Moderate size right effusion which is increased from the prior study. There is a new small left effusion. 5. Moderate cardiomegaly. 6. No definite gallstones identified. Chest X-Ray 11/19/17 03:55 CONCLUSION: 1. Mild hazy opacity is now noted in the right perihilar region concerning for mild pulmonary edema. 2. The heart size remains mildly enlarged and appearance. Head CT 11/19/17 03:55 CONCLUSION: 1. No acute hemorrhage or mass effect. 2. Mild motion and streak artifact. . Chest X-Ray 11/19/17 08:50 CONCLUSION: 1. ETT in good position. NGT beyond the GE junction. Central lines in good position. 2. Persistent atypical pulmonary edema pattern. Chest X-Ray 11/27/17 08:49 CONCLUSION: 1. Mild to moderate pulmonary vascular congestion. 2. Cardiomegaly. 3. Tiny bilateral pleural effusions. 4. Multiple tubes and lines are stable. Chest X-Ray 12/04/17 07:53 CONCLUSION: Significantly improved aeration. Endotracheal tube tip is a bit high Head MRI 12/05/17 00:00 CONCLUSION: 1. Edema with restricted diffusion in the medial right superior cerebellum. Imaging findings are characteristic of recent ischemia. 2. Chronic findings include generalized cerebral atrophy with moderate chronic periventricular and subcortical white matter signal change characteristic of chronic microvascular ischemia. The punctate area of signal change in the right centrum semiovale is suspected to represent white matter signal change but nonacute ischemia. Chest X-Ray 12/06/17 06:00 CONCLUSION: ET tube in high position at the thoracic inlet. NG tube in the distal esophagus. This should be advanced. Diffuse increased interstitial markings likely related to diffuse processes such as edema or diffuse infection. Chest X-Ray 12/08/17 06:00 CONCLUSION: Diffuse increased interstitial markings likely related to diffuse processes such as diffuse edema, infection, or ARDS. Further increased density at the bases related to consolidation, atelectasis and /or effusion. Chest X-Ray 12/09/17 06:00 CONCLUSION: Improving basilar consolidations in a radiographic pattern most suggestive of pulmonary edema. Chest X-Ray 12/12/17 00:00 CONCLUSION: Unchanged exam as detailed above. Abdomen X-Ray 12/12/17 06:53 CONCLUSION: Orogastric or nasogastric tube tip is projected over the body of the stomach. Procedures: 11/19/2017: Right radial arterial line placement 11/19/2017: Endotracheal intubation 11/19/2017: Right subclavian triple-lumen catheter placement 11/19/2017 right IJ dialysis catheter placement Dc`d 11/26/17 . 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 He was never and has no children. He was previously in the [employer]. Spiritual: Car Stower available. Legal: No living will or healthcare surrogate completed. Ethical issues impacting care: None noted. . Important Contacts: Mother: Angelina Medina healthcare proxy- Currently living with daughter, Kaylie Gama. Sister: Bryan Sharp Sister: Kamille Verdugo Brother: Segundobetsy Verdugo Brother: Carter Chavez Sister: Kaylie Gama - , C [phone] . Prognosis: His prognosis is poor. He has end-stage heart disease now with an ejection fraction estimated to be less than 10% by pharmacy order entry technician echo. He has suffered a decline in heart function since June 2017 when echocardiogram showed a 50-55% ejection fraction at the time of mitral valve repair. Patient continued to abuse cocaine and possibly other substances and when seen in [place] September 2017 for chest pain was found to have non-ischemic cardiomyopathy with a normal coronary artery circulation and ejection fraction of 20-25%. Echocardiogram at this admission shows cardiogenic shock with an EF less than 10%. He is now requiring inotropic support with milrinone and now has acute kidney injury requiring dialysis for both hyperkalemia and fluid overload. At this time he remains on life support, intubated, but is at elevated risk for continued complications and decline. He would be hospice appropriate if goals were consistent. . Code Status: No Code DNR (Do not reintubate) Plan: PLAN: Legal decision maker: At this time the patient is not capacitated for decision making and it is not certain that he will ever regain capacity. He was never and has no children. His mother would be his proxy decision maker per [place] statutes. She had previously been reported to me as demented and unable to make these decisions, however, her daughter, Kaylie, who is her caregiver disputes that and states that her mother is perfectly capable of making these decisions and wishes to be her son's decision-maker. In conversation with Ms. Medina, herself, she appeared appropriate and capable of decision-making. Goals: Comfort oriented. Plan for withdrawal Saturday, 12/14. CODE STATUS: DO NOT RESUSCITATE SYMPTOMS: * Altered mental status: Presented with altered mental status, positive for cocaine, hypoglycemic, hyperkalemic, in fulminant heart failure, minimally able to make his needs known. Shortly thereafter he required intubation and sedation. Bedside critical care echo showed severe biventricular dysfunction with EF less than 10%, aortic valve opening only minimally due to low flow. HIV positive-CD4 count 60, end stage AIDS, ?AIDS related dementia. Patient continues to be agitated when sedation is weaned down. MRI brain on 12/05 revealed right sided superior cerebellar CVA with some edema. EEG on 12/05 revealed mild encephalopathy. No recommendations at this time * Dyspnea: Patient becomes dyspneic, tachypneic, agitated with decreasing sedation. Is likely multifactorial to include severe heart failure, Enterobacter/Klebsiella associated pneumonia, history of crack cocaine smoking. Family is planning withdrawal of ventilator support on Saturday. It is their wish that patient be treated for comfort measures. No further recommendations at this time. Palliative care will continue to follow the patient during hospital course as condition evolves, to assist patient/decision-maker with understanding of their medical conditions, weighing benefits/burdens of treatment options, for clarification of goals of treatment. Additionally will assist with any symptoms of palliative concern. . Attestation Attestation: To help prompt me to consider important information that might be impacting today's encounter and assessment, information from prior notes written by myself or my colleagues may have been "brought forward" into today's note. My signature on this note, however, is an attestation that I personally performed the exam, history, and/or decision-making noted today, and, unless otherwise indicated, the interactions with patient, family, and staff as well as the review of records all occurred today. I also attest that the listed assessment and stated plan reflect my best clinical judgment today based on the combination of historical information, prior notes, and today's exam/ interactions. When time spent is documented, it refers only to time spent today by the signer, or if indicated, combined time spent today by collaborating physician/nurse practitioner. .
--- NOTE | 2017-12-13 16:04 | P.PNCC ---
Subjective Subjective Remarks/Hospital Course: 11/19: This is a 57yM with history of cardiomyopathy and an EF 20% who recently underwent mitral valve repair for severe MR. At that time, he had a preserved LVEF. However, he continued to use illicit cocaine, and on subsequent hospital admissions, his EF had fallen to 20%. He represents today with altered mental status, endorsing cocaine use. On further evaluation, he has a potassium of 7, Cr 2.4, AST/ALT 200/72, CK 1302, BNP 4307, co2 14. On my evaluation he is obtunded and agonally breathing, intermittently tachypneic. I performed bedside critical care echo which demonstrated a severe biventricular dysfunction and an EF < 10%. there was spontaneous echo contrast in the LV and the aortic valve appeared to open only minimally due to low-flow. Patient is grossly anasarcic with 3+ edema bilaterally up to the abdomen. he has JVD above the level of the mandible. I emergently intubated the patient (see separate procedure note for details). I emergently placed arterial, central lines, and dialysis catheter. potassium did not improve with medical therapy. we consulted nephrology for emergent HD. I also placed the patient on epinephrine drip for cardiogenic shock. due to the patient's mental status and clinical status, no additional information is available from him. ROS unobtainable. 11/20: Remains sedated, orally intubated on mechanical ventilation. Dialyzed this morning. Remains on pressors. 11/21: Remains sedated, orally intubated on mechanical ventilation. Hypothermic this morning. 11/22: Remains sedated, orally intubated on mechanical ventilation. Dialysis scheduled today 11/23: Remains sedated, orally intubated on mechanical ventilation. On milrinone. 11/24, 11/25: Remains sedated, orally intubated on mechanical ventilation. Tolerating tube feeds. 11/26: Sedated, orally intubated on mechanical ventilation. Tolerating tube feeds. 11/27 No events overnight. Sedated with Versed and intubated. On Milrinone drip. 11/29 Patient is sedated with Versed and intubated. Remains on Milrinone. T: 100.4 last night. Had 1 run (6 beats) asymptomatic Vtach overnight. Gets tachycardic and tachypneic with CPAP trials. 11/30 Patient remains sedated and intubated. T:100.4 last night. Not tolerating CPAP trials. 12/01 No events overnight. T:100.0 last night. Sedated with versed and on Milrinone. 12/02 Patient remains intubated and sedated. T;100.0 last night. On Versed and Diprivan infusion for sedation. Not tolerating CPAP trials. 12/03 No events overnight. Sedated and intubated. On Milrinone. Afebrile. 12/04 Patient remains sedated and intubated. Afebrile. 12/05: Afebrile. Start back on midazolam drip due to tachycardia/agitation. Heart rate currently in the 150s. Did not tolerate CPAP trial. Remains on milrinone at 0.25 mcg/kg/min 12/06: Resting comfortably in bed. Remains on midazolam drip at 6 mg an hour. MRI brain yesterday revealed right-sided superior cerebellar CVA with some edema. Awaiting family decision for tracheostomy and PEG tube placement 12/07: T-max 101.2. Currently on midazolam drip at 10 mg an hour due to "agitation and tachypnea" overnight. 2 runs of nonsustained V. tach. Magnesium potassium being replaced. 12/08: T-max 100.5. Currently on midazolam drip at 7 mg an hour. Phosphorus currently being replaced. Plan for discussion about trach/PEG versus withdrawal of care tomorrow with mother and daughter. 12/09: no improvements. remains very critically ill. unlikely to survive. palliative discussion today and family still discussion withdraw vs. aggressive measures. 12/10: no improvements. family deciding on when to withdraw care: need some family to travel from out-of-town to be with patient. 12/11: no changes. plan for withdraw on saturday when family at bedside. until then, will need to mitigate the suffering we provide to the patient in the form of lab draws and medication administrations. Subjective 12/12: no changes. appears comfortable. awaiting family to arrive. 12/13: plan to withdraw care tomorrow. no other changes. still appears comfortable. Objective Vital Signs / I&O: Vital Signs 12/12/17 16:30 12/12/17 17:00 12/12/17 17:30 Temperature Pulse Rate 75 92 H 90 Respiratory Rate 16 16 16 Blood Pressure 106/74 118/82 124/85 Pulse Oximetry 100 100 100 12/12/17 18:00 12/12/17 18:30 12/12/17 19:00 Temperature Pulse Rate 81 82 75 Respiratory Rate 16 16 16 Blood Pressure 133/80 108/76 101/68 Pulse Oximetry 100 100 100 12/12/17 19:30 12/12/17 20:00 12/12/17 20:30 Temperature Pulse Rate 77 84 80 Respiratory Rate 16 16 16 Blood Pressure 115/83 115/76 111/77 Pulse Oximetry 100 100 100 12/12/17 20:40 12/12/17 21:00 12/12/17 21:31 Temperature Pulse Rate 75 77 Respiratory Rate 16 16 16 Blood Pressure 108/76 112/89 Pulse Oximetry 100 100 100 12/12/17 22:00 12/12/17 22:30 12/12/17 23:00 Temperature Pulse Rate 76 80 80 Respiratory Rate 16 16 16 Blood Pressure 114/82 114/82 129/92 H Pulse Oximetry 100 100 98 12/12/17 23:30 12/13/17 00:00 12/13/17 00:30 Temperature Pulse Rate 85 80 90 Respiratory Rate 16 16 16 Blood Pressure 119/84 112/77 117/84 Pulse Oximetry 100 100 12/13/17 01:00 12/13/17 01:30 12/13/17 01:32 Temperature Pulse Rate 82 81 Respiratory Rate 16 16 16 Blood Pressure 117/85 119/85 Pulse Oximetry 100 100 98 12/13/17 02:00 12/13/17 02:30 12/13/17 03:00 Temperature Pulse Rate 86 104 H 101 H Respiratory Rate 16 22 16 Blood Pressure 117/84 111/70 120/85 Pulse Oximetry 100 12/13/17 03:30 12/13/17 04:00 12/13/17 04:13 Temperature Pulse Rate 95 H 94 H Respiratory Rate 16 16 16 Blood Pressure 113/84 115/81 Pulse Oximetry 97 95 12/13/17 06:27 12/13/17 08:00 12/13/17 08:20 Temperature 36.2 C L Pulse Rate 66 66 Respiratory Rate 20 16 Blood Pressure 188/94 H Pulse Oximetry 100 100 12/13/17 12:04 12/13/17 15:29 Temperature Pulse Rate Respiratory Rate 16 16 Blood Pressure Pulse Oximetry 100 100 Intake & Output 12/12/17 12/13/17 12/13/17 18:59 06:59 18:59 Intake Total 1550 / 1550 50 / 50 50 / 50 Output Total 500 / 500 300 / 300 Balance 1050 / 1050 -250 / -250 50 / 50 Weight 64 kg Intake: IV 1550 / 1550 50 / 50 50 / 50 Versed Inj 50 mg In 50 ml @ 10 100 / 100 50 / 50 50 / 50 MG/HR 10 mls/hr IV.CONT TITRATE PRN Rx#:[id number] D10W Inj 1,000 ML @ 30 mls/hr 1000 / 1000 IV.SIG .Q24H RUDDY Rx#:[id number] INVanz Inj 1,000 MG In NS Inj 200 / 200 100 ML @ 100 mls/hr IV.SIG Q24H RUDDY Rx#:[id number] Vancomycin Inj 1,000 MG In NS 250 / 250 Inj 250 ML @ 250 mls/hr IV.SIG Q12H RUDDY Rx#:[id number] Output: Urine Amount (Catheter) 500 / 500 300 / 300 Condom 500 / 500 300 / 300 Other: Date of Last Bowel Movement 12/11/17 12/11/17 12/11/17 Result Diagrams: 12/11/17 04:35 12/13/17 09:48 Objective Remarks: GENERAL: Patient is 57 yo AA male intubated and sedated SKIN: Warm and dry. HEAD: Normocephalic. EYES: No scleral icterus. No injection or drainage. NECK: Supple, trachea midline. No JVD or lymphadenopathy. CARDIOVASCULAR: Regular rate and rhythm without murmurs, gallops, or rubs. RESPIRATORY: Breath sounds equal bilaterally. No accessory muscle use. GASTROINTESTINAL: Abdomen soft, non-tender, nondistended. MUSCULOSKELETAL: Trace bilateral lower extremity edema. Neuro: Sedated. Inconsistent Assessment and Plan - Assessment and Plan Plan: Neurologic: Acute toxic encephalopathy Acute cocaine intoxication Acute metabolic encephalopathy secondary to shock Right superior cerebellar CVA On midazolam drip for sedation while intubated Morphine sulfate 4 mg IV every 2 hours as needed pain Daily sedation vacation. Monitor neuro status. MRI brain 12/05 revealed restricted diffusion in the medial right superior cerebellum. Chronic periventricular and subcortical white matter signal change case of chronic microvascular ischemia. EEG 12/05 revealed moderate encephalopathy. No epileptic activity Respiratory: Acute hypoxic and hypercarbic respiratory failure Acute severe pulmonary edema Continue with vent support keep sats >92% Bronchodilators with albuterol/ipratropium aerosols every 6 hours with albuterol aerosols every 2 hours as needed for dyspnea. no SBT. Cardiovascular: s/p Cardiogenic shock Acute severe systolic congestive heart failure exacerbation Acute type II non-ST elevation myocardial infarction secondary to demand ischemia known prior EF 20% (09/2017), Echo 11/27: EF <20%, mod- severe MR, PAP 53.9mmHg likely secondary to chronic cocaine use superimposed on cardiomyopathy. Monitor HR and BP keep MAP>65mmHg. on carvedilol 3.125mg BID. And lisinopril 5mg daily On 12.5 mg twice daily carvedilol at home. Holding amlodipine 10 mg daily/ home medication Discontinued 12/07 milrinone drip at 0.25 mcg/kg/min. Lactic acid resolved 1.1 on 11/20 Renal: Acute kidney injury- resolved RACHID positive. Positive RACHID screen pending. Low complements noted. Monitor renal function, I/O's, electrolytes replacement per protocol. Vascath d/c 11/26. d/c furosemide. Renal has followed FEN/GI: Hep C reactive viral load 351, 000 international units per milliliter Hypoalbuminemia Possible autoimmune hepatitis Severe acute protein calorie malnutrition need to limit amount of volume given to patient given severe heart failure. also , questionable absorption and toleration of tube feeds at this point. abdomen more distended. will hold tube feeds for now and re-evaluate daily. Lansoprazole for GI prophylaxis. Docusate sodium/senna 1 tablet twice daily for bowel regimen Heme/ID: VAP -Enterobacter/Klebsiella E. coli UTI HIV - CD4 60 new diagnosis AIDS Normocytic anemia Daily CBC , HIV reactive on screening test. CD4 count: 60 Meropenem switched to ertapenem by ID, added vancomycin 12/07 monitor for signs of infections ( Fever, WBC). Check UA urine cxs: ESBL E.coli 11/27 Sputum cx: Enterobacter, Kleb BC 11/29: NGTD 12/06 - BC -gram-positive cocci from line and peripherally. Negative blood cultures 12/07 ID is following Endocrine: SSI with accuchecks Prophylaxis: GI Prophylaxis Lansoprazole DVT Prophylaxis Subcu heparin Lines: 11/19 right subclavian 7 [place] triple-lumen catheter discontinued 12/07 11/19 right IJ 14 [place] 20 cm dialysis catheter d/c 11/26 Prognosis appears poor. Palliative care following to assist with deciding goals of therapy. plan to withdraw care on saturday.
[2017-12-13] MEDS: Dextrose 10% in Water Inj 1,000 ML IV.SIG SCH (21:03)
[2017-12-14] MEDS: Midazolam 50 MG/50 ML Inj 50 MG/50 ML BAG IV.CONT PRN ×2 (04:13→11:51)
[2017-12-14 05:42] LABS: Vancomycin,Random 14.7 Comment
[2017-12-14] MEDS: Heparin - SQ 10,000 UNITS/ML Vial SQ SCH (05:45)
[2017-12-14 06:24] VITALS: BP 144/88; PULSE 89; O2SAT 100
[2017-12-14] MEDS ORDERED: Acetaminophen 650 MG Supp RECTAL PRN (10:21)
[2017-12-14] MEDS ORDERED: Midazolam 50 MG/50 ML Inj 50 MG/50 ML BAG IV.CONT PRN (10:21)
[2017-12-14] MEDS ORDERED: Bisacodyl 10 MG Supp RECTAL PRN (10:21)
[2017-12-14] MEDS ORDERED: Morphine Sulfate Inj 8 MG/ML Vial IV.PUSH ONE ×2 (11:00→11:30)
[2017-12-14] MEDS ORDERED: Hyoscyamine Inj 0.5 MG/ML Ampul IV.PUSH ONE (11:00)
[2017-12-14] MEDS ORDERED: Midazolam Inj 5 MG/ML 1 ML Vial IV.PUSH ONE ×2 (11:00→11:30)
[2017-12-14] MEDS ORDERED: Morphine Sulfate Inj 8 MG/ML Vial IV.PUSH PRN (11:30)
[2017-12-14] MEDS ORDERED: Morphine Inj 4 MG/ML Vial IV.PUSH SCH (12:00)
[2017-12-14] MEDS: Morphine Inj 4 MG/ML Vial IV.PUSH PRN ×3 (13:37→14:46)
--- NOTE | 2017-12-14 15:15 | P.PNCC ---
Subjective Subjective Remarks/Hospital Course: 11/19: This is a 57yM with history of cardiomyopathy and an EF 20% who recently underwent mitral valve repair for severe MR. At that time, he had a preserved LVEF. However, he continued to use illicit cocaine, and on subsequent hospital admissions, his EF had fallen to 20%. He represents today with altered mental status, endorsing cocaine use. On further evaluation, he has a potassium of 7, Cr 2.4, AST/ALT 200/72, CK 1302, BNP 4307, co2 14. On my evaluation he is obtunded and agonally breathing, intermittently tachypneic. I performed bedside critical care echo which demonstrated a severe biventricular dysfunction and an EF < 10%. there was spontaneous echo contrast in the LV and the aortic valve appeared to open only minimally due to low-flow. Patient is grossly anasarcic with 3+ edema bilaterally up to the abdomen. he has JVD above the level of the mandible. I emergently intubated the patient (see separate procedure note for details). I emergently placed arterial, central lines, and dialysis catheter. potassium did not improve with medical therapy. we consulted nephrology for emergent HD. I also placed the patient on epinephrine drip for cardiogenic shock. due to the patient's mental status and clinical status, no additional information is available from him. ROS unobtainable. 11/20: Remains sedated, orally intubated on mechanical ventilation. Dialyzed this morning. Remains on pressors. 11/21: Remains sedated, orally intubated on mechanical ventilation. Hypothermic this morning. 11/22: Remains sedated, orally intubated on mechanical ventilation. Dialysis scheduled today 11/23: Remains sedated, orally intubated on mechanical ventilation. On milrinone. 11/24, 11/25: Remains sedated, orally intubated on mechanical ventilation. Tolerating tube feeds. 11/26: Sedated, orally intubated on mechanical ventilation. Tolerating tube feeds. 11/27 No events overnight. Sedated with Versed and intubated. On Milrinone drip. 11/29 Patient is sedated with Versed and intubated. Remains on Milrinone. T: 100.4 last night. Had 1 run (6 beats) asymptomatic Vtach overnight. Gets tachycardic and tachypneic with CPAP trials. 11/30 Patient remains sedated and intubated. T:100.4 last night. Not tolerating CPAP trials. 12/01 No events overnight. T:100.0 last night. Sedated with versed and on Milrinone. 12/02 Patient remains intubated and sedated. T;100.0 last night. On Versed and Diprivan infusion for sedation. Not tolerating CPAP trials. 12/03 No events overnight. Sedated and intubated. On Milrinone. Afebrile. 12/04 Patient remains sedated and intubated. Afebrile. 12/05: Afebrile. Start back on midazolam drip due to tachycardia/agitation. Heart rate currently in the 150s. Did not tolerate CPAP trial. Remains on milrinone at 0.25 mcg/kg/min 12/06: Resting comfortably in bed. Remains on midazolam drip at 6 mg an hour. MRI brain yesterday revealed right-sided superior cerebellar CVA with some edema. Awaiting family decision for tracheostomy and PEG tube placement 12/07: T-max 101.2. Currently on midazolam drip at 10 mg an hour due to "agitation and tachypnea" overnight. 2 runs of nonsustained V. tach. Magnesium potassium being replaced. 12/08: T-max 100.5. Currently on midazolam drip at 7 mg an hour. Phosphorus currently being replaced. Plan for discussion about trach/PEG versus withdrawal of care tomorrow with mother and daughter. 12/09: no improvements. remains very critically ill. unlikely to survive. palliative discussion today and family still discussion withdraw vs. aggressive measures. 12/10: no improvements. family deciding on when to withdraw care: need some family to travel from out-of-town to be with patient. 12/11: no changes. plan for withdraw on saturday when family at bedside. until then, will need to mitigate the suffering we provide to the patient in the form of lab draws and medication administrations. 12/12: no changes. appears comfortable. awaiting family to arrive. 12/13: plan to withdraw care tomorrow. no other changes. still appears comfortable. Subjective 12/14: family here at bedside. long discussion with whole family and we are all in agreement to withdraw care today. Objective Vital Signs / I&O: Vital Signs 12/13/17 15:29 12/13/17 20:00 12/13/17 22:25 Pulse Rate 93 H Respiratory Rate 16 16 16 Blood Pressure Pulse Oximetry 100 99 100 12/14/17 01:17 12/14/17 04:24 12/14/17 06:00 Pulse Rate 89 Respiratory Rate 16 16 16 Blood Pressure 144/88 H Pulse Oximetry 100 99 100 12/14/17 08:00 12/14/17 08:20 12/14/17 11:39 Pulse Rate 89 Respiratory Rate 16 16 Blood Pressure Pulse Oximetry 100 100 Intake & Output 12/13/17 12/14/17 12/14/17 18:59 06:59 18:59 Intake Total 2667 / 2667 100 / 100 50 / 50 Output Total 2049 / 0 400 / 400 Balance 617 / 617 -300 / -300 50 / 50 Weight 64 kg Intake: IV 50 / 50 100 / 100 50 / 50 Versed Inj 50 mg In 50 ml @ 10 50 / 50 100 / 100 50 / 50 MG/HR 10 mls/hr IV.CONT TITRATE PRN Rx#:[id number] Oral 0 / 0 Tube Feeding 371 / 371 Tube Irrigant 50 / 50 Water Bolus Amount 60 / 60 Other 2136 / 2136 Output: Urine 950 / 950 Stool 800 / 800 Hemodialysis Amount 0 / 0 Urine Amount (Catheter) 300 / 300 400 / 400 Condom 300 / 300 400 / 400 Other: # Voids 3 # Incontinent Voids 1 Date of Last Bowel Movement 12/11/17 12/14/17 12/14/17 # Bowel Movements 2 1 # Incontinent Bowel Movements 1 Result Diagrams: 12/11/17 04:35 12/14/17 03:15 Objective Remarks: GENERAL: Patient is 57 yo AA male intubated and sedated SKIN: Warm and dry. HEAD: Normocephalic. EYES: No scleral icterus. No injection or drainage. NECK: Supple, trachea midline. No JVD or lymphadenopathy. CARDIOVASCULAR: Regular rate and rhythm without murmurs, gallops, or rubs. RESPIRATORY: Breath sounds equal bilaterally. No accessory muscle use. GASTROINTESTINAL: Abdomen soft, non-tender, nondistended. MUSCULOSKELETAL: Trace bilateral lower extremity edema. Neuro: Sedated. Inconsistent Assessment and Plan - Assessment and Plan Plan: Neurologic: Acute toxic encephalopathy Acute cocaine intoxication Acute metabolic encephalopathy secondary to shock Right superior cerebellar CVA On midazolam drip for sedation while intubated Morphine sulfate 4 mg IV every 2 hours as needed pain Daily sedation vacation. Monitor neuro status. MRI brain 12/05 revealed restricted diffusion in the medial right superior cerebellum. Chronic periventricular and subcortical white matter signal change case of chronic microvascular ischemia. EEG 12/05 revealed moderate encephalopathy. No epileptic activity Respiratory: Acute hypoxic and hypercarbic respiratory failure Acute severe pulmonary edema Continue with vent support keep sats >92% Bronchodilators with albuterol/ipratropium aerosols every 6 hours with albuterol aerosols every 2 hours as needed for dyspnea. no SBT. Cardiovascular: s/p Cardiogenic shock Acute severe systolic congestive heart failure exacerbation Acute type II non-ST elevation myocardial infarction secondary to demand ischemia known prior EF 20% (09/2017), Echo 11/27: EF <20%, mod- severe MR, PAP 53.9mmHg likely secondary to chronic cocaine use superimposed on cardiomyopathy. Monitor HR and BP keep MAP>65mmHg. on carvedilol 3.125mg BID. And lisinopril 5mg daily On 12.5 mg twice daily carvedilol at home. Holding amlodipine 10 mg daily/ home medication Discontinued 12/07 milrinone drip at 0.25 mcg/kg/min. Lactic acid resolved 1.1 on 11/20 Renal: Acute kidney injury- resolved RACHID positive. Positive RACHID screen pending. Low complements noted. Monitor renal function, I/O's, electrolytes replacement per protocol. Vascath d/c 11/26. d/c furosemide. Renal has followed FEN/GI: Hep C reactive viral load 351, 000 international units per milliliter Hypoalbuminemia Possible autoimmune hepatitis Severe acute protein calorie malnutrition need to limit amount of volume given to patient given severe heart failure. also , questionable absorption and toleration of tube feeds at this point. abdomen more distended. will hold tube feeds for now and re-evaluate daily. Lansoprazole for GI prophylaxis. Docusate sodium/senna 1 tablet twice daily for bowel regimen Heme/ID: VAP -Enterobacter/Klebsiella E. coli UTI HIV - CD4 60 new diagnosis AIDS Normocytic anemia Daily CBC , HIV reactive on screening test. CD4 count: 60 Meropenem switched to ertapenem by ID, added vancomycin 12/07 monitor for signs of infections ( Fever, WBC). Check UA urine cxs: ESBL E.coli 11/27 Sputum cx: Enterobacter, Kleb BC 11/29: NGTD 12/06 - BC -gram-positive cocci from line and peripherally. Negative blood cultures 12/07 ID is following Endocrine: SSI with accuchecks Prophylaxis: GI Prophylaxis Lansoprazole DVT Prophylaxis Subcu heparin Lines: 11/19 right subclavian 7 [place] triple-lumen catheter discontinued 12/07 11/19 right IJ 14 [place] 20 cm dialysis catheter d/c 11/26 Prognosis appears poor. Palliative care following to assist with deciding goals of therapy. plan to withdraw care today. will transition to comfort meds and measures after withdraw of life support.
--- NOTE | 2017-12-14 15:52 | P.DN ---
Discharge Sum: Prov - Provider Primary care physician: UNKNOWN Admitting clinician: John Gold Consults: 11/19/17 11:07 HUB Only Consult Order Routine Consulting Provider: [employer] 11/19/17 12:00 Consult to Palliative Care Routine Consulting Provider: Sofia Harper Reason for Consultation: recurrent cocaine use and end-stage heart failure Notified:: Service Spoke with:: luis antonio Date Notified:: 11/19/17 Time Notified:: 12:20 Ordering Provider: TASHI 11/26/17 11:12 HUB Only Consult Order Routine Consulting Provider: [facility]Agency 11/29/17 08:06 Consult to Infectious Diseases Routine Consulting Provider: Cathleen Snider Reason for Consultation: ESBL E.coli urine, pneumonia, HIV Notified:: Service Spoke with:: Luis Antonio Date Notified:: 11/29/17 Time Notified:: 08:10 Ordering Provider: ABRAHAN 12/05/17 17:17 Consult to Neurology Routine Consulting Provider: Lemuel Hastings Reason for Consultation: Right superior cerebellar CVA subacute. Patient admitted with cardiogenic shock, ejection fraction 10% with recent mitral valve repair. Notified:: Service Spoke with:: ERIBERTO Date Notified:: 12/05/17 Time Notified:: 17:23 Ordering Provider: TIM Discharge Sum: Diag Discharge Sum: Summary - Date and Time Date of admission: 11/19/17 05:44 Date of : 12/14/17 Time of : 15:35 - Summary Details: 11/19: This is a 57yM with history of cardiomyopathy and an EF 20% who recently underwent mitral valve repair for severe MR. At that time, he had a preserved LVEF. However, he continued to use illicit cocaine, and on subsequent hospital admissions, his EF had fallen to 20%. He represents today with altered mental status, endorsing cocaine use. On further evaluation, he has a potassium of 7, Cr 2.4, AST/ALT 200/72, CK 1302, BNP 4307, co2 14. On my evaluation he is obtunded and agonally breathing, intermittently tachypneic. I performed bedside critical care echo which demonstrated a severe biventricular dysfunction and an EF < 10%. there was spontaneous echo contrast in the LV and the aortic valve appeared to open only minimally due to low-flow. Patient is grossly anasarcic with 3+ edema bilaterally up to the abdomen. he has JVD above the level of the mandible. I emergently intubated the patient (see separate procedure note for details). I emergently placed arterial, central lines, and dialysis catheter. potassium did not improve with medical therapy. we consulted nephrology for emergent HD. I also placed the patient on epinephrine drip for cardiogenic shock. due to the patient's mental status and clinical status, no additional information is available from him. ROS unobtainable. 11/20: Remains sedated, orally intubated on mechanical ventilation. Dialyzed this morning. Remains on pressors. 11/21: Remains sedated, orally intubated on mechanical ventilation. Hypothermic this morning. 11/22: Remains sedated, orally intubated on mechanical ventilation. Dialysis scheduled today 11/23: Remains sedated, orally intubated on mechanical ventilation. On milrinone. 11/24, 11/25: Remains sedated, orally intubated on mechanical ventilation. Tolerating tube feeds. 11/26: Sedated, orally intubated on mechanical ventilation. Tolerating tube feeds. 11/27 No events overnight. Sedated with Versed and intubated. On Milrinone drip. 11/29 Patient is sedated with Versed and intubated. Remains on Milrinone. T: 100.4 last night. Had 1 run (6 beats) asymptomatic Vtach overnight. Gets tachycardic and tachypneic with CPAP trials. 11/30 Patient remains sedated and intubated. T:100.4 last night. Not tolerating CPAP trials. 12/01 No events overnight. T:100.0 last night. Sedated with versed and on Milrinone. 12/02 Patient remains intubated and sedated. T;100.0 last night. On Versed and Diprivan infusion for sedation. Not tolerating CPAP trials. 12/03 No events overnight. Sedated and intubated. On Milrinone. Afebrile. 12/04 Patient remains sedated and intubated. Afebrile. 12/05: Afebrile. Start back on midazolam drip due to tachycardia/agitation. Heart rate currently in the 150s. Did not tolerate CPAP trial. Remains on milrinone at 0.25 mcg/kg/min 12/06: Resting comfortably in bed. Remains on midazolam drip at 6 mg an hour. MRI brain yesterday revealed right-sided superior cerebellar CVA with some edema. Awaiting family decision for tracheostomy and PEG tube placement 12/07: T-max 101.2. Currently on midazolam drip at 10 mg an hour due to "agitation and tachypnea" overnight. 2 runs of nonsustained V. tach. Magnesium potassium being replaced. 12/08: T-max 100.5. Currently on midazolam drip at 7 mg an hour. Phosphorus currently being replaced. Plan for discussion about trach/PEG versus withdrawal of care tomorrow with mother and daughter. 12/09: no improvements. remains very critically ill. unlikely to survive. palliative discussion today and family still discussion withdraw vs. aggressive measures. 12/10: no improvements. family deciding on when to withdraw care: need some family to travel from out-of-town to be with patient. 12/11: no changes. plan for withdraw on saturday when family at bedside. until then, will need to mitigate the suffering we provide to the patient in the form of lab draws and medication administrations. 12/12: no changes. appears comfortable. awaiting family to arrive. 12/13: plan to withdraw care tomorrow. no other changes. still appears comfortable. 12/14: family here at bedside. long discussion with whole family and we are all in agreement to withdraw care today. care was withdrawn and patient at 15:35 on 12/14. - Additional Data Attending/PCP notified?: Yes Attending physician: Lynda Pina MD Hospice patient?: Yes
--- NOTE | 2017-12-14 20:05 | P.PNPAL ---
Patient seen earlier today. Late entry. Patient remained on sedation, not able to wean due to agitation. Physical exam unchanged. Family declining trach/PEG. Family has signed consents for withdrawal of life support. Orders entered, discussed with Dr. Gold and nurse , Bianka. Withdrawal when family has arrived and is ready.
== END 2017-12-14 15:35 | disposition expired ==
LOC: NEPE 03:33 → NEDA 05:44 → HIMC 07:33
PROVIDERS: ADMIT Emergency Medicine; ATTEND Emergency Medicine